=== PATIENT | male | born 1945 | race Caucasian/White ===

== ENCOUNTER 2019-09-25 08:33 | Outpatient (CLI) | payer MEDICARE, OTHER, SELFPAY ==
[2019-09-25 09:45] LABS: Cholesterol 112 mg/dL (0-200); HDL Direct 45 mg/dL; Triglycerides 116 mg/dL (<150)
[2019-09-25 09:56] LABS: LDL Cholesterol Direct 53 mg/dL
== END 2019-09-25 08:34 | disposition home or self-care (01) ==
PROVIDERS: Visit Provider Internal Medicine Cardiovascular Disease
DX: E11.69 Type 2 diabetes mellitus with other specified complication (principal); E78.5 Hyperlipidemia, unspecified; Z79.899 Other long term (current) drug therapy
CPT/HCPCS: 36415; 80061

== ENCOUNTER 2020-02-01 07:04 | Outpatient (CLI) | payer MEDICARE, OTHER, SELFPAY ==
[2020-02-01 07:38] LABS: Cholesterol 121 mg/dL (0-200); HDL Direct 46 mg/dL; Triglycerides 131 mg/dL (<150)
[2020-02-01 07:48] LABS: LDL Cholesterol Direct 53 mg/dL
== END 2020-02-01 07:05 | disposition home or self-care (01) ==
PROVIDERS: Visit Provider Internal Medicine Cardiovascular Disease
DX: E78.5 Hyperlipidemia, unspecified (principal); Z79.899 Other long term (current) drug therapy; I25.118 Atherosclerotic heart disease of native coronary artery with other forms of angina pectoris
CPT/HCPCS: 36415; 80061

== ENCOUNTER → 2021-12-16 09:01 | Outpatient (CLI) | payer MEDICARE, OTHER, SELFPAY ==
--- NOTE | ~2021-12-16 | MR_ITS ---
EXAMINATION: MR lumbar spine wo con DATE: 12/16/2021 10:07 INDICATION: Low back pain and left leg pain TECHNIQUE: Magnetic resonance imaging (MRI) of the lumbar spine was performed without intravenous con trast. Sequences included sagittal T2-weighted FSE, sagittal T2-weighted FS FSE, sagittal T1-weighted FSE, and axial T2-weighted FSE. COMPARISON: None FINDINGS: 11 degree upper lumbar dextroscoliosis. 2 mm retrolisthesis L2 on L3 and L3 on L4. 4 mm retrolisthesi s L5 on S1. Chronic anterior wedging at T12 with 20% anterior vertebral body height loss. Additional minimal chronic anterior wedging at L1. There are Schmorl's nodes along several endplates in the lumb ar and lower thoracic spine. Multiple T1 hyperintense hemangiomas including at T12, L1 and L4 and at the left S1 sacral ala. There are fibrofatty and fibrovascular degenerative endplate changes at sever al levels in the lumbar spine most prominent at the left side of L3-L4. Marrow signal is otherwise un remarkable. Severe left-sided disc height loss at L3-L4, moderate to severe disc height loss at L4-L5 and L5-S1. Mild disc height loss at T11-T12 through L2-L3. The conus medullaris terminates at L1. Th ere is normal signal in the caudal spinal cord. Paravertebral soft tissues are unremarkable. The foll owing disc levels are specifically discussed: T12-L1: The disc does not extend beyond the endplate margin. There is mild bilateral facet joint oste oarthritis. There is mild left neural foraminal stenosis. There is no central canal stenosis. L1-L2: Disc is bulging. There is mild bilateral facet joint osteoarthritis. There is mild right and m ild to moderate left neural foraminal stenosis. There is mild central canal stenosis. L2-L3: Disc is bulging. There is mild bilateral facet joint osteoarthritis. There is mild bilateral n eural foraminal stenosis. There is mild to moderate central canal stenosis. L3-L4: Disc is bulging with annular fissure. There is moderate bilateral facet joint osteoarthritis. There is moderate right and moderate to severe left neural foraminal stenosis. There is moderate cent ral canal stenosis. L4-L5: Annular fissure and central disc extrusion which extends from foraminal zone to foraminal zone . There is moderate bilateral facet joint osteoarthritis. There is moderate left and moderate to smita re right neural foraminal stenosis. There is mild to moderate central canal stenosis. Is also narrowi ng of the left and right lateral recesses, mild on the left and severe on the right. L5-S1: Annular fissure and small central disc extrusion extending from foraminal zone to foraminal zo ne. There is mild left and moderate to severe right facet joint osteoarthritis. There is altered left and moderate to severe right neural foraminal stenosis. There is mild central canal stenosis. IMPRESSION: 1. Mild lumbar dextroscoliosis with severe spondylosis. Reviewed, dictated and finalized at location A.
== END ==
PROVIDERS: Visit Provider Nurse Practitioner Family
DX: M47.896 Other spondylosis, lumbar region (principal)
CPT/HCPCS: 72148

== ENCOUNTER 2022-04-04 14:10 | Outpatient (CLI) | payer MEDICARE, OTHER, SELFPAY ==
[2022-04-04 14:37] LABS: Cholesterol 135 mg/dL (0-200); HDL Direct 57 mg/dL; Triglycerides 122 mg/dL (<150)
[2022-04-04 14:48] LABS: LDL Cholesterol Direct 49 mg/dL
== END 2022-04-04 14:11 | disposition home or self-care (01) ==
PROVIDERS: Visit Provider Internal Medicine Cardiovascular Disease
DX: E11.69 Type 2 diabetes mellitus with other specified complication (principal); E78.5 Hyperlipidemia, unspecified
CPT/HCPCS: 36415; 80061

== ENCOUNTER 2022-04-18 07:38 | Outpatient (CLI) | payer MEDICARE, OTHER, SELFPAY ==
[2022-04-18 08:42] LABS: Hemoglobin A1C 6.1 % (<5.7)
[2022-04-18 08:43] LABS: Cholesterol 130 mg/dL (0-200); HDL Direct 44 mg/dL; Triglycerides 105 mg/dL (<150)
[2022-04-18 08:54] LABS: LDL Cholesterol Direct 51 mg/dL
[2022-04-18 09:00] LABS: Creatinine Urine 15.3 mg/dL
[2022-04-18 09:08] LABS: Microalbumin Urine Random < 6.0 mg/L (0-16.7)
== END 2022-04-18 07:39 | disposition home or self-care (01) ==
PROVIDERS: Visit Provider Emergency Medicine
DX: R53.83 Other fatigue (principal); E11.9 Type 2 diabetes mellitus without complications; I25.2 Old myocardial infarction
CPT/HCPCS: 36415; 80061; 82043; 83036

== ENCOUNTER 2022-07-06 05:57 | Emergency (ER) | payer MEDICARE, OTHER, SELFPAY ==
[2022-07-06] VITALS (12 sets, daily range): BP systolic 96–130; BP diastolic 59–75; PULSE 73–81; RESP 17–21; TEMP 36.9; O2SAT 93–97
--- NOTE | ~2022-07-06 | XR_ITS ---
XR chest 1V portable DATE: 07/06/2022 06:30 INDICATION: Cough TECHNIQUE: Portable upright AP chest on 07/06/2022 at 0628 hours COMPARISON: 01/29/2018 PA and lateral chest FINDINGS: Bilateral hyperinflation and relative flattening the diaphragm, suggesting obstructive airw ays disease. There may be minimal atelectasis at the lung bases. No pulmonary infiltrate or consolida tion is evident. No hilar or mediastinal enlargement. Heart size appears within normal limits. Aortic calcification and tortuosity. No pleural effusion or pulmonary vascular congestion or pneumothorax is detected. Diffuse osteopenia. IMPRESSION: Bilateral hyperinflation suggesting COPD Aortic atherosclerosis Osteopenia Reviewed, dictated and finalized at location A. ICIPANT ADMINISTRATOR
--- NOTE | 2022-07-06 07:17 | ECG_ITS ---
Measurements Intervals [place] Rate: 77 P: 29 MO: 177 QRS: -66 QRSD: 138 T: 65 QT: 376 QTc: 426 Interpretive Statements SINUS RHYTHM ATRIAL AND VENTRICULAR PREMATURE COMPLEXES RIGHT BUNDLE BRANCH BLOCK LEFT ANTERIOR FASCICULAR BLOCK ANTEROSEPTAL INFARCT, AGE INDETERMINATE BASELINE ARTIFACT- I, III, AVL ABNORMAL ECG NO PREVIOUS ECG AVAILABLE FOR COMPARISON Electronically Signed On 07-06-2022 9:49:01 PHOSPHORIC ACID OPERATOR by Uche Vidal D.O.
[2022-07-06 07:19] LABS: Influenza A QL RT-PCR Negative (Negative); Influenza B QL RT-PCR Negative (Negative); SARS-CoV-2 RNA PCR Negative
[2022-07-06 07:34] LABS: Carboxyhemoglobin 2.2 % THb (0-2.0); Fractional Inspired Oxygen 21 %; HCO3 ABG 27.3 mEq/l (22.0-26.0); Methemoglobin ABG 0.2 %THb (0-1.5); Modified Allen's Test Pass; Oxygen Saturation ABG 94.7 % (95.0-100.0); Oxyhemoglobin 92.2 % THb (90.0-100.0); PCO2 ABG 40.7 mmHg (35.0-45.0); PO2 FiO2 Ratio Arterial Blood 3.33 %; Reduced Hemoglobin 5.4 %THb (0-5.0); Site Drawn LEFT RADIAL; Total Hemoglobin 16.2 g/dL (12.0-18.0); pH ABG 7.445 (7.350-7.450)
[2022-07-06 07:52] LABS: Basophils Percent Auto 0.4 % (0.2-1.2); Eosinophils Absolute Auto 0.1 K/mm3 (0-0.3); Eosinophils Percent Auto 0.5 % (0-4.4); Hematocrit 45.1 % (42.0-52.0); Hemoglobin 15.6 g/dL (14.0-18.0); Immature Granulocyte Absolute 0.16 K/mm3 (0.00-0.031); Immature Granulocyte Percent A 1.4 % (0-0.5); Lymphocytes Absolute Auto 1.23 K/mm3 (0.9-3.2); Lymphocytes Percent Auto 10.9 % (18.3-44.2); Mean Corpuscular HGB Conc 34.6 g/dl (32-36); Mean Corpuscular Hemoglobin 30.8 pg (26-34); Mean Corpuscular Volume 89.1 fl (80-100); Mean Platelet Volume 9.9 fl (7.4-10.4); Monocytes Absolute Auto 0.6 K/mm3 (0.1-0.6); Monocytes Percent Auto 5.7 % (2.6-8.5); Neutrophils Absolute Auto 9.1 K/mm3 (1.3-6.7); Neutrophils Percent Auto 81.1 % (45.5-73.1); Platelet Count Result 357 k/mm3 (150-375); Red Blood Count 5.06 M/mm3 (4.6-6.20); Red Cell Distribution Width 13.2 % (11.5-14.5); White Blood Count 11.3 K/mm3 (4.5-10.0)
--- NOTE | 2022-07-06 07:59 | ED.SOB ---
HPI - SOB/Dyspnea General Chief Complaint: Shortness of Breath/Dyspnea Stated Complaint: SOB Time Seen by Provider: 07/06/22 07:01 Source: patient (), family, RN notes reviewed and old records reviewed Mode of arrival: ambulatory Limitations: other (poor historian) History of Present Illness HPI Narrative: This is a 77 year old male with history of COPD, CAD, hypertension who presents for evaluation of shortness of breath. His is at bedside to assist with history. She states patient has been dealing with cough for 1 week. She reports 1 week ago they both went to an urgent care for evaluation of cough, and they were prescribed antibiotic and antiinflammatory. His cough has improved and it is nonproductive. His states around midnight he started complaining of shortness of breath. He also reports diaphoresis and nausea. He denies chest pain. He is unsure if his sob is worse with exertion. He denies fever, chills, vomiting, diarrhea, chest pain or abdominal pain. Patient states his process technician told him if he feels off to come to ER. Related Data Home Medications Medication Instructions Recorded Confirmed alirocumab 75 mg/mL subcutaneous 75 mg subcut ONCE 11/29/21 05/16/22 pen injector (Praluent Pen) aspirin 81 mg tablet,delayed 81 mg PO DAILY 11/29/21 05/16/22 release budesonide-formoterol HFA 160 2 puff inhalation Q12H 11/29/21 05/16/22 mcg-4.5 mcg/actuation aerosol inhaler (Symbicort) furosemide 40 mg tablet 40 mg PO BID 11/29/21 05/16/22 glucosamine [id number] 1 tablet PO DAILY 11/29/21 05/16/22 elise 1,500 mg-400 unit-100 mg tablet (Osteo Bi-Flex (5-Loxin)) isosorbide mononitrate 60 mg 60 mg PO DAILY 11/29/21 05/16/22 tablet,extended release 24 hr latanoprost 0.005 % eye drops 1 drp EACH EYE QPM 11/29/21 05/16/22 metformin 500 mg tablet 500 mg PO BID 11/29/21 05/16/22 metoprolol succinate 25 mg 12.5 mg PO DAILY 11/29/21 05/16/22 tablet,extended release 24 hr nitroglycerin 0.4 mg sublingual 0.4 mg sublingual Q5M PRN 11/29/21 05/16/22 tablet pantoprazole 40 mg tablet,delayed 40 mg PO QAM 11/29/21 05/16/22 release potassium chloride 20 mEq 20 meq PO DAILY 11/29/21 05/16/22 tablet,extended release sacubitril 24 mg-valsartan 26 mg 1 tablet PO BID 11/29/21 05/16/22 tablet (Entresto) spironolactone 25 mg tablet 25 mg PO DAILY 11/29/21 05/16/22 ticagrelor 60 mg tablet (Brilinta) 60 mg PO Q12H 11/29/21 05/16/22 Allergies Allergy/AdvReac Type Severity Reaction Status Date / Time carvedilol Allergy Unknown unknown Verified 07/06/22 05:59 lisinopril Allergy Unknown Swelling Verified 07/06/22 05:59 varenicline Allergy Unknown unknown Verified 07/06/22 05:59 Review of Systems Review of Systems: All systems reviewed & are unremarkable except as noted in HPI and below Constitutional: Constitutional: Denies chills, Denies fatigue and Denies fever(s) Eyes: Eyes: Denies change in vision and Denies photophobia ENT: Denies nasal congestion Cardiovascular: Cardiovascular: Denies chest pain and Denies radiating jaw, neck or arm pain Respiratory: Respiratory: Reports cough, Reports dyspnea and Denies wheezing Gastrointestinal: Gastrointestinal: Denies abdominal pain, Denies diarrhea, Reports nausea and Denies vomiting Genitourinary: Genitourinary: Denies hematuria Musculoskeletal: Musculoskeletal: Denies back pain Neurologic: Denies dizziness and Denies headache(s) [facility] Past Medical History Medical History Lumbosacral spondylosis with radiculopathy Myocardial infarction Rotator cuff tear arthropathy of right shoulder Surgical History Surgical History H/O heart artery stent Family History Family History Other Acute myocardial infarction Breast cancer Social History Social History (Revi
[2022-07-06 08:01] LABS: Partial Thromboplastin Time 29.7 SECONDS (22.3-36.8); Prothrombin Time 12.5 Seconds (11.1-14.7)
[2022-07-06 08:08] LABS: Alanine Aminotransferase 17 U/L (6-50); Albumin Level 4.3 g/dL (3.5-5.1); Alkaline Phosphatase 98 U/L (38-126); Anion Gap 13 mmol/L (8-16); Aspartate Amino Transferase 23 U/L (17-59); Bilirubin,Total 0.8 mg/dL (0.2-1.3); Blood Urea Nitrogen 23 mg/dL (9-20); Calcium 9.1 mg/dL (8.4-10.2); Carbon Dioxide 25 mmol/L (22-30); Chloride 99 mmol/L (98-107); Estimated CRCL calculation 67 ml/min; Estimated Glomerular Filt Rate > 60; Glucose 144 mg/dL (65-110); Potassium 3.8 mmol/L (3.4-5.0); Sodium 137 mmol/L (137-145)
[2022-07-06 08:21] LABS: NT Pro B Type Natriuretic Pept 286 pg/mL (5-100); Troponin I < 0.012 ng/mL (0.000-0.034)
== END 2022-07-06 09:41 | disposition home or self-care (01) ==
PROVIDERS: Emergency Medicine; Emergency Provider General Practice; PCP Emergency Medicine
DX: R06.00 Dyspnea, unspecified (principal); Z20.822 Contact with and (suspected) exposure to COVID-19; J44.9 Chronic obstructive pulmonary disease, unspecified; I25.10 Atherosclerotic heart disease of native coronary artery without angina pectoris; I25.2 Old myocardial infarction; Z79.82 Long term (current) use of aspirin; Z79.84 Long term (current) use of oral hypoglycemic drugs; Z79.02 Long term (current) use of antithrombotics/antiplatelets; Z87.891 Personal history of nicotine dependence; I49.1 Atrial premature depolarization; I49.3 Ventricular premature depolarization; I45.2 Bifascicular block
CPT/HCPCS: 36415; 36600; 71045; 80053; 82375; 82805; 83050; 83880; 84484; 85025; 85610; 85730; 87636; 93005; 99284

== ENCOUNTER 2022-07-11 12:06 | Outpatient (CLI) | payer MEDICARE, OTHER, SELFPAY ==
[2022-07-11 12:51] LABS: Alanine Aminotransferase 18 U/L (6-50); Albumin Level 4.3 g/dL (3.5-5.1); Alkaline Phosphatase 76 U/L (38-126); Anion Gap 10 mmol/L (8-16); Aspartate Amino Transferase 23 U/L (17-59); Bilirubin,Total 0.5 mg/dL (0.2-1.3); Blood Urea Nitrogen 20 mg/dL (9-20); Carbon Dioxide 27 mmol/L (22-30); Chloride 99 mmol/L (98-107); Estimated Glomerular Filt Rate > 60; Glucose 126 mg/dL (65-110); Potassium 4.5 mmol/L (3.4-5.0); Sodium 136 mmol/L (137-145)
== END 2022-07-11 12:07 | disposition home or self-care (01) ==
PROVIDERS: PCP Emergency Medicine; Visit Provider Emergency Medicine
DX: R53.83 Other fatigue (principal)
CPT/HCPCS: 36415; 80053

== ENCOUNTER 2022-08-31 07:46 | Outpatient (CLI) | payer MEDICARE, OTHER, SELFPAY ==
[2022-08-31 09:10] LABS: Alanine Aminotransferase 16 U/L (6-50); Alkaline Phosphatase 85 U/L (38-126); Anion Gap 6 mmol/L (8-16); Aspartate Amino Transferase 21 U/L (17-59); Bilirubin,Total 0.2 mg/dL (0.2-1.3); Blood Urea Nitrogen 14 mg/dL (9-20); Calcium 8.7 mg/dL (8.4-10.2); Carbon Dioxide 30 mmol/L (22-30); Chloride 100 mmol/L (98-107); Cholesterol 112 mg/dL (0-200); Estimated Glomerular Filt Rate > 60; Glucose 108 mg/dL (65-110); HDL Direct 52 mg/dL; Potassium 3.5 mmol/L (3.4-5.0); Sodium 136 mmol/L (137-145); Triglycerides 73 mg/dL (<150)
[2022-08-31 09:21] LABS: LDL Cholesterol Direct 42 mg/dL
[2022-08-31 10:40] LABS: Hemoglobin A1C 5.5 % (<5.7)
== END 2022-08-31 07:47 | disposition home or self-care (01) ==
PROVIDERS: PCP Emergency Medicine; Visit Provider Emergency Medicine
DX: E11.9 Type 2 diabetes mellitus without complications (principal); I21.9 Acute myocardial infarction, unspecified
CPT/HCPCS: 36415; 80053; 80061; 83036

== ENCOUNTER 2023-01-09 08:03 | Outpatient (CLI) | payer MEDICARE, OTHER, SELFPAY ==
[2023-01-09 08:40] LABS: Alanine Aminotransferase 16 U/L (6-50); Albumin Level 4.5 g/dL (3.5-5.1); Alkaline Phosphatase 121 U/L (38-126); Anion Gap 9 mmol/L (8-16); Aspartate Amino Transferase 25 U/L (17-59); Bilirubin,Total 0.6 mg/dL (0.2-1.3); Blood Urea Nitrogen 13 mg/dL (9-20); Calcium 8.9 mg/dL (8.4-10.2); Carbon Dioxide 27 mmol/L (22-30); Chloride 102 mmol/L (98-107); Cholesterol 114 mg/dL (0-200); Estimated Glomerular Filt Rate > 60; Glucose 108 mg/dL (65-110); HDL Direct 44 mg/dL; Potassium 3.6 mmol/L (3.4-5.0); Sodium 138 mmol/L (137-145); Triglycerides 93 mg/dL (<150)
[2023-01-09 08:50] LABS: LDL Cholesterol Direct 52 mg/dL
[2023-01-09 10:47] LABS: Hemoglobin A1C 6.2 % (<5.7)
== END 2023-01-09 08:04 | disposition home or self-care (01) ==
LOC: ANHLAB 08:05
PROVIDERS: PCP Emergency Medicine; Visit Provider Emergency Medicine
DX: E11.9 Type 2 diabetes mellitus without complications (principal)
CPT/HCPCS: 36415; 80053; 80061; 83036

== ENCOUNTER 2023-07-09 08:16 | Outpatient (CLI) | payer MEDICARE, OTHER, SELFPAY ==
[2023-07-09 09:06] LABS: Alanine Aminotransferase 15 U/L (6-50); Albumin Level 4.2 g/dL (3.5-5.1); Alkaline Phosphatase 112 U/L (38-126); Anion Gap 9 mmol/L (8-16); Aspartate Amino Transferase 24 U/L (17-59); Bilirubin,Total 0.4 mg/dL (0.2-1.3); Blood Urea Nitrogen 14 mg/dL (9-20); Calcium 8.8 mg/dL (8.4-10.2); Carbon Dioxide 28 mmol/L (22-30); Chloride 102 mmol/L (98-107); Estimated Glomerular Filt Rate > 60; Glucose 113 mg/dL (65-110); Potassium 3.6 mmol/L (3.4-5.0); Sodium 139 mmol/L (137-145)
[2023-07-12 20:03] LABS: Vitamin D 1,25 (OH)2 Total 65 pg/mL (18-72); Vitamin D2 1,25 (OH)2 <8 pg/mL; Vitamin D3 1,25 (OH)2 65 pg/mL
== END 2023-07-09 08:17 | disposition home or self-care (01) ==
LOC: ANHLAB 08:19
PROVIDERS: PCP Emergency Medicine; Visit Provider Emergency Medicine
DX: E78.5 Hyperlipidemia, unspecified (principal); E55.9 Vitamin D deficiency, unspecified
CPT/HCPCS: 36415; 80053; 82652

== ENCOUNTER 2023-07-12 08:19 | Outpatient (CLI) | payer MEDICARE, OTHER, SELFPAY ==
[2023-07-12 09:31] LABS: Cholesterol 120 mg/dL (0-200); HDL Direct 45 mg/dL; Triglycerides 82 mg/dL (<150)
[2023-07-12 09:42] LABS: LDL Cholesterol Direct 56 mg/dL
== END 2023-07-12 08:20 | disposition home or self-care (01) ==
LOC: ANHLAB 08:26
PROVIDERS: PCP Emergency Medicine; Visit Provider Internal Medicine Cardiovascular Disease
DX: I25.118 Atherosclerotic heart disease of native coronary artery with other forms of angina pectoris (principal)
CPT/HCPCS: 36415; 80061

== ENCOUNTER 2024-01-07 07:39 | Outpatient (CLI) | payer MEDICARE, OTHER, SELFPAY ==
[2024-01-07 08:31] LABS: Alanine Aminotransferase 13 U/L (6-50); Albumin Level 4.5 g/dL (3.5-5.1); Alkaline Phosphatase 99 U/L (38-126); Anion Gap 8 mmol/L (4-12); Aspartate Amino Transferase 23 U/L (17-59); Bilirubin,Total 0.6 mg/dL (0.2-1.3); Blood Urea Nitrogen 11 mg/dL (9-20); Calcium 9.2 mg/dL (8.4-10.2); Carbon Dioxide 26 mmol/L (22-30); Chloride 105 mmol/L (98-107); Cholesterol 111 mg/dL (0-200); Estimated Glomerular Filt Rate > 60; Glucose 132 mg/dL (65-110); HDL Direct 46 mg/dL; Potassium 3.9 mmol/L (3.4-5.0); Sodium 139 mmol/L (137-145); Triglycerides 81 mg/dL (<150)
[2024-01-07 08:43] LABS: LDL Cholesterol Direct 55 mg/dL
[2024-01-07 08:48] LABS: Vitamin D 25 Hydroxy 32.2 ng/mL
[2024-01-07 09:06] LABS: Hemoglobin A1C 6.5 % (<5.7)
== END 2024-01-07 07:40 | disposition home or self-care (01) ==
PROVIDERS: PCP Emergency Medicine; Visit Provider Emergency Medicine
DX: E55.9 Vitamin D deficiency, unspecified (principal); I21.9 Acute myocardial infarction, unspecified; E11.9 Type 2 diabetes mellitus without complications
CPT/HCPCS: 36415; 80053; 80061; 82306; 83036

== ENCOUNTER 2024-05-25 07:09 | Emergency (ER) | payer MEDICARE, OTHER, SELFPAY ==
[2024-05-25] VITALS (11 sets, daily range): BP systolic 108–112; BP diastolic 58–71; PULSE 81–99; RESP 16–21; TEMP 36.4–36.7; O2SAT 93–98
--- NOTE | ~2024-05-25 | XR_ITS ---
XR chest 1V portable Ordering provider: Bart Ge MD History: 79 years Male with . edema . Comparison: July 06, 2022 FINDINGS: MEDIASTINUM: The cardiac silhouette is not enlarged. LUNGS: No infiltrates, effusions or pneumothorax. OTHER: No free air under the diaphragm. IMPRESSION: No acute cardiopulmonary pathology. Reviewed, dictated and finalized at location A.
--- NOTE | ~2024-05-25 | US_ITS ---
BILATERAL LOWER EXTREMITY VENOUS ULTRASOUND Ordering provider: Bart Ge MD History: . edema . Comparison: None. FINDINGS: RIGHT LOWER EXTREMITY VEINS: --COMMON FEMORAL: Patent and free of thrombus. Normal compressibility, phasic flow and augmentation. --PROXIMAL SUPERFICIAL FEMORAL: Patent and free of thrombus. Normal compressibility, phasic flow and augmentation. --DISTAL SUPERFICIAL FEMORAL: Patent and free of thrombus. Normal compressibility, phasic flow and au gmentation. --POPLITEAL: Patent and free of thrombus. Normal compressibility, phasic flow and augmentation. --POSTERIOR TIBIAL: Patent and free of thrombus. Normal compressibility, phasic flow and augmentation . Rey's cyst is seen. LEFT LOWER EXTREMITY VEINS: --COMMON FEMORAL: Patent and free of thrombus. Normal compressibility, phasic flow and augmentation. --PROXIMAL SUPERFICIAL FEMORAL: Patent and free of thrombus. Normal compressibility, phasic flow and augmentation. --DISTAL SUPERFICIAL FEMORAL: Patent and free of thrombus. Normal compressibility, phasic flow and au gmentation. --POPLITEAL: Patent and free of thrombus. Normal compressibility, phasic flow and augmentation. --POSTERIOR TIBIAL: Patent and free of thrombus. Normal compressibility, phasic flow and augmentation . Rey's cyst is seen. IMPRESSION: Negative bilateral lower extremity venous US. No deep vein thrombosis. Bilateral Rey's cyst. Reviewed, dictated and finalized at location A.
[2024-05-25 07:59] LABS: Eosinophils Percent Auto 0.4 % (0-4.4); Hematocrit 35.7 % (42.0-52.0); Hemoglobin 11.2 g/dL (14.0-18.0); Immature Granulocyte Absolute 0.03 K/mm3 (0.00-0.031); Immature Granulocyte Percent A 0.6 % (0-0.5); Lymphocytes Absolute Auto 0.58 K/mm3 (0.9-3.2); Mean Corpuscular HGB Conc 31.4 g/dl (32-36); Mean Corpuscular Hemoglobin 27.3 pg (26-34); Mean Corpuscular Volume 86.9 fl (80-100); Mean Platelet Volume 8.9 fl (7.4-10.4); Monocytes Absolute Auto 0.4 K/mm3 (0.1-0.6); Monocytes Percent Auto 6.8 % (2.6-8.5); Neutrophils Absolute Auto 4.3 K/mm3 (1.3-6.7); Neutrophils Percent Auto 81.2 % (45.5-73.1); Platelet Count Result 401 k/mm3 (150-375); Red Blood Count 4.11 M/mm3 (4.6-6.20); Red Cell Distribution Width 15.6 % (11.5-14.5); White Blood Count 5.3 K/mm3 (4.5-10.0)
[2024-05-25 08:14] LABS: Alanine Aminotransferase 12 U/L (6-50); Albumin Level 3.7 g/dL (3.5-5.1); Alkaline Phosphatase 80 U/L (38-126); Anion Gap 9 mmol/L (4-12); Aspartate Amino Transferase 26 U/L (17-59); Bilirubin,Total 0.8 mg/dL (0.2-1.3); Blood Urea Nitrogen 14 mg/dL (9-20); Calcium 8.9 mg/dL (8.4-10.2); Carbon Dioxide 28 mmol/L (22-30); Chloride 98 mmol/L (98-107); Estimated CRCL calculation 69 ml/min; Estimated Glomerular Filt Rate > 60; Glucose 116 mg/dL (65-110); Potassium 3.8 mmol/L (3.4-5.0); Sodium 135 mmol/L (137-145)
[2024-05-25 08:20] LABS: NT Pro B Type Natriuretic Pept 1540 pg/mL (19.9-100); Prothrombin Time 13.4 Seconds (11.1-14.7)
[2024-05-25 08:21] LABS: Partial Thromboplastin Time 36.8 Seconds (22.3-36.8)
--- NOTE | 2024-05-25 08:32 | ED.GENADULT ---
HPI - General Adult General Chief complaint: Extremity Problem,Nontraumatic Stated complaint: PAINFUL,SWOLLEN LEGS Time Seen by Provider: 05/25/24 07:18 History of Present Illness HPI narrative: patient is an 79-year-old male who presents ER with swollen legs. Ongoing over last week. Recently increased his Lasix from 40 mg b.i.d. to 40 mg t.i.d.. He sees Dr. Diamond. No chest pain or shortness of breath. He did start a new vitamin for his joints. No dyspnea or orthopnea. Related Data Home Medications Medication Instructions Recorded Confirmed aspirin 81 mg tablet,delayed 81 mg PO DAILY 11/29/21 05/19/24 release latanoprost 0.005 % eye drops 1 drp EACH EYE QPM 11/29/21 05/19/24 metoprolol succinate 25 mg 12.5 mg PO DAILY 11/29/21 05/19/24 tablet,extended release 24 hr nitroglycerin 0.4 mg sublingual 0.4 mg sublingual Q5M PRN 11/29/21 05/19/24 tablet pantoprazole 40 mg tablet,delayed 40 mg PO QAM 11/29/21 05/19/24 release potassium chloride 20 mEq 20 meq PO DAILY 11/29/21 05/19/24 tablet,extended release ticagrelor 60 mg tablet (Brilinta) 60 mg PO Q12H 11/29/21 05/19/24 sacubitril 24 mg-valsartan 26 mg 0.5 tablet PO BID 09/04/22 05/19/24 tablet (Entresto) glucosamine [id number] 2 tablet PO DAILY 05/19/24 05/19/24 elise 1,500 mg-400 unit-100 mg tablet (Osteo Bi-Flex (5-Loxin)) Allergies Allergy/AdvReac Type Severity Reaction Status Date / Time carvedilol Allergy Unknown unknown Verified 05/25/24 07:11 lisinopril Allergy Unknown Swelling Verified 05/25/24 07:11 varenicline Allergy Unknown unknown Verified 05/25/24 07:11 [id number] Reductase AdvReac Unknown Verified 05/25/24 07:11 Inhibitor Review of Systems Review of Systems: All systems reviewed & are unremarkable except as noted in HPI and below Constitutional: Constitutional: Reports no additional constitutional complaints ENT: Reports system reviewed and no additional complaints, except as documented Cardiovascular: Cardiovascular: Reports no additional cardiovascular complaints Respiratory: Respiratory: Reports no additional respiratory complaints Gastrointestinal: Gastrointestinal: Reports no additional gastrointestinal complaints Musculoskeletal: Musculoskeletal: Denies arthralgias, Denies joint swelling and Denies muscle cramps Comments: Leg swelling PMFSH Past Medical History Medical History Chronic right shoulder pain Impingement syndrome of right shoulder Lumbosacral spondylosis with radiculopathy Myocardial infarction 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 Tendinitis of right rotator cuff Surgical History Surgical History H/O heart artery stent Family History Family History Other Acute myocardial infarction Breast cancer Social History Social History Smoking packs per day: 0.5 Smoking cigarettes per day: 10.0 Years smoked: 60 Smoking pack-years: 30.00 Smoking status: Current every day smoker Second hand tobacco smoke exposure: No Smoking end date: 08/12/14 Alcohol intake: never Substance use: never Substance use type: does not use Current Housing: Decline to Answer Concerned About Future Housing: Decline to Answer Difficulty Paying Gas/Electric Bills: Decline to Answer Difficulty Paying for Meds: Decline to Answer Currently Unemployed: Decline to Answer Education: Decline to Answer Difficulty w/ Childcare or Family Care: Decline to Answer Occupation/Education: retired Gender identity (if verbalized by the patient): Male Spiritual care concerns: No Agree to blood products: Yes Exam Narrative: GENERAL: Well-appearing, well-nourished, and in no acute distress. DEMETRIA
== END 2024-05-25 09:52 | disposition home or self-care (01) ==
PROVIDERS: Emergency Provider Emergency Medicine; PCP Emergency Medicine
DX: R60.0 Localized edema (principal); I25.2 Old myocardial infarction; M19.011 Primary osteoarthritis, right shoulder; Z95.5 Presence of coronary angioplasty implant and graft; Z87.891 Personal history of nicotine dependence; Z79.82 Long term (current) use of aspirin; Z79.899 Other long term (current) drug therapy; Z79.02 Long term (current) use of antithrombotics/antiplatelets; Z79.84 Long term (current) use of oral hypoglycemic drugs; M71.22 Synovial cyst of popliteal space [Baker], left knee; M71.21 Synovial cyst of popliteal space [Baker], right knee
CPT/HCPCS: 36415; 71045; 80053; 83880; 85025; 85610; 85730; 93970; 99284

== ENCOUNTER 2024-06-09 10:33 | Inpatient (IN) | payer MEDICARE, OTHER, SELFPAY ==
[2024-06-09] VITALS (12 sets, daily range): BP systolic 102–114; BP diastolic 55–76; PULSE 74–99; RESP 16–26; TEMP 36.8; O2SAT 96–99; BMI 27.3
[2024-06-09] MEDS: SODIUM CHLORIDE 0.9% IV 1,000 ML 150 ML IV CONT (12:01)
[2024-06-09 12:11] LABS: Basophils Percent Auto 0.2 % (0.2-1.2); Eosinophils Percent Auto 0.4 % (0-4.4); Hematocrit 35.4 % (42.0-52.0); Hemoglobin 10.9 g/dL (14.0-18.0); Immature Granulocyte Absolute 0.05 K/mm3 (0.00-0.031); Immature Granulocyte Percent A 1.1 % (0-0.5); Lymphocytes Absolute Auto 0.83 K/mm3 (0.9-3.2); Lymphocytes Percent Auto 17.6 % (18.3-44.2); Mean Corpuscular HGB Conc 30.8 g/dl (32-36); Mean Corpuscular Hemoglobin 26.7 pg (26-34); Mean Corpuscular Volume 86.8 fl (80-100); Mean Platelet Volume 9.1 fl (7.4-10.4); Monocytes Absolute Auto 0.3 K/mm3 (0.1-0.6); Monocytes Percent Auto 6.6 % (2.6-8.5); Neutrophils Absolute Auto 3.5 K/mm3 (1.3-6.7); Neutrophils Percent Auto 74.1 % (45.5-73.1); Platelet Count Result 389 k/mm3 (150-375); Red Blood Count 4.08 M/mm3 (4.6-6.20); Red Cell Distribution Width 16.5 % (11.5-14.5); White Blood Count 4.7 K/mm3 (4.5-10.0)
[2024-06-09 12:22] LABS: Alanine Aminotransferase 11 U/L (6-50); Albumin Level 3.7 g/dL (3.5-5.1); Alkaline Phosphatase 75 U/L (38-126); Anion Gap 8 mmol/L (4-12); Aspartate Amino Transferase 18 U/L (17-59); Bilirubin,Total 0.3 mg/dL (0.2-1.3); Blood Urea Nitrogen 13 mg/dL (9-20); Calcium 8.9 mg/dL (8.4-10.2); Carbon Dioxide 28 mmol/L (22-30); Chloride 101 mmol/L (98-107); Estimated CRCL calculation 74 ml/min; Estimated Glomerular Filt Rate > 60; Glucose 122 mg/dL (65-110); Potassium 3.8 mmol/L (3.4-5.0); Prothrombin Time 13.3 Seconds (11.1-14.7); Sodium 137 mmol/L (137-145)
[2024-06-09 12:23] LABS: Partial Thromboplastin Time 44.3 Seconds (22.3-36.8)
[2024-06-09 12:59] LABS: Appearance Urine Turbid (Clear); Bilirubin Urine Negative (Negative); Blood Urine Negative (Negative); Color Urine Yellow (Yellow); Glucose Urine UA Negative (Negative); Ketones Urine Trace mg/dL (Negative); Leukocyte Esterase Ur Negative LEU/UL (Negative); Nitrate Urine Negative (Negative); Protein Urine Trace mg/dL (Negative); Specific Grav Ur 1.022 (1.001-1.035)
[2024-06-09 13:00] LABS: Add Urine Microscopic? YES; Bacteria Urine None Seen /hpf; Calcium Oxalate Crystals Urine Present /hpf; Hyaline Casts Urine Present /lpf; Mucus Urine Present /lpf; Squamous Epithelial Cell Urine None Seen /hpf (Few); WBC Urine 0-5 /hpf (0-3)
[2024-06-09 13:03] LABS: Amorphous Sediment Urine Heavy
--- NOTE | 2024-06-09 14:09 | ED.ABDPAIN ---
HPI - Abdominal Pain General Chief Complaint: Abdominal Pain Stated Complaint: nausea, abd pain Time Seen by Provider: 06/09/24 11:37 Source: patient and family Mode of arrival: ambulatory Limitations: no limitations History of Present Illness HPI narrative: 79-year-old with a history of CAD, GERD, hypertension, peptic ulcer disease brought in by daughter with a complaint of 4 day history of unable to eat or drink complaining of upper abdominal pain as well. She states that he had a bleeding ulcer 3 years ago which was clipped and [facility]. This morning he was unable to drink water. He denies any nausea or vomiting also complains of sore throat . MD elicited complaint: abdominal pain Pertinent past history: gastritis, gastrointestinal bleeding and myocardial infarction Onset (ago): day(s) (4) Pain Consistency: constant Location: epigastric Severity: mild Radiation: none Migration to: no migration Relieving factors: eating Associated symptoms: denies other symptoms Related Data Home Medications Medication Instructions Recorded Confirmed aspirin 81 mg tablet,delayed 81 mg PO DAILY 11/29/21 05/19/24 release latanoprost 0.005 % eye drops 1 drp EACH EYE QPM 11/29/21 05/19/24 metoprolol succinate 25 mg 12.5 mg PO DAILY 11/29/21 05/19/24 tablet,extended release 24 hr nitroglycerin 0.4 mg sublingual 0.4 mg sublingual Q5M PRN 11/29/21 05/19/24 tablet pantoprazole 40 mg tablet,delayed 40 mg PO QAM 11/29/21 05/19/24 release potassium chloride 20 mEq 20 meq PO DAILY 11/29/21 05/19/24 tablet,extended release ticagrelor 60 mg tablet (Brilinta) 60 mg PO Q12H 11/29/21 05/19/24 sacubitril 24 mg-valsartan 26 mg 0.5 tablet PO BID 09/04/22 05/19/24 tablet (Entresto) glucosamine [id number] 2 tablet PO DAILY 05/19/24 05/19/24 elise 1,500 mg-400 unit-100 mg tablet (Osteo Bi-Flex (5-Loxin)) Allergies Allergy/AdvReac Type Severity Reaction Status Date / Time carvedilol Allergy Unknown unknown Verified 06/02/24 14:50 lisinopril Allergy Unknown Swelling Verified 06/02/24 14:50 varenicline Allergy Unknown unknown Verified 06/02/24 14:50 [id number] Reductase AdvReac Unknown Verified 06/02/24 14:50 Inhibitor Review of Systems Review of Systems: All systems reviewed & are unremarkable except as noted in HPI and below Constitutional: Constitutional: Reports no additional constitutional complaints Eyes: Eyes: Reports no additional eye complaints ENT: Reports system reviewed and no additional complaints, except as documented and Reports as per HPI Cardiovascular: Cardiovascular: Reports no additional cardiovascular complaints Respiratory: Respiratory: Reports no additional respiratory complaints Gastrointestinal: Gastrointestinal: Reports as per HPI Musculoskeletal: Musculoskeletal: Reports no additional musculoskeletal complaints Integumentary/Breasts: Skin/Breast: Reports system reviewed and no additional complaints, except as docu Neurologic: Reports system reviewed and no additional complaints, except as documented PMFSH Past Medical History Medical History Chronic right shoulder pain Effusion of knee joint Impingement syndrome of right shoulder Left knee DJD Lumbosacral spondylosis with radiculopathy Myocardial infarction 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 Tendinitis of right rotator cuff Surgical History Surgical History H/O heart artery stent Family History Family History Other Acute myocardial infarction Breast cancer Social History Social History Smoking packs per day: 0.5 Smoking cigarettes per day: 10.0 Years smoked: 60 Smoking pack-years: 30.00 Smoking status: Current every day smoker Second hand tobacco smoke exposure: No Smoking end date: 08/12/14 Alcohol intake: never Substance use: never Substance use type: does not use Current Housing: Decline to Answer Concerned About Future Housing: Decline to Answer Difficulty Paying Gas/Electric Bills: Decline to Answer Difficulty Paying for Meds: Decline to Answer Currently Unemployed: Decline to Answer Education: Decline to Answer Difficulty w/ Childcare or Family Care: Decline to Answer Occupation/Education: retired Gender identity (if verbalized by the patient): Male Spiritual care concerns: No Agree to blood products: Yes Exam Narrative: GENERAL: Well-appearing, well-nourished, and in no acute distress. HEAD: Normocephalic, atraumatic. EYES: PERRLA and EOMI. ENT: Nares clear, mild erythema of the tonsillar fossa. Mucous membranes moist. NECK: Supple. CHEST: Clear to auscultation. No respiratory distress. HEART: Regular rate and rhythm. No murmur heard. Normal peripheral pulses. ABDOMEN: Soft, nontender, nondistended, normal active bowel sounds. EXTREMITIES: Normal range of motion. No edema. SKIN: Warm, dry, no rash. NEURO: No focal deficits. Alert and oriented x3. PSYCH: Normal mood and affect. Course Course Emergency Course: Patient comfortably resting in no discomfort. Did inform him about his lab work. I discussed with GI he recommended admission will do EGD in the morning. Notified [facility] will accept the patient. Vital Signs Vital signs: Vital Signs Temperature 36.8 C 06/09/24 10:35 Pulse Rate 99 06/09/24 10:35 Respiratory Rate 16 06/09/24 10:35 Blood Pressure 109/60 06/09/24 10:35 Pulse Oximetry 96 06/09/24 10:35 Oxygen Delivery Room Air 06/09/24 10:35 Temperature 36.8 C 06/09/24 11:46 Pulse Rate 80 06/09/24 12:31 Respiratory Rate 24 H 06/09/24 12:31 Blood Pressure 104/63 06/09/24 12:31 Pulse Oximetry 96 06/09/24 11:46 Oxygen Delivery Room Air 06/09/24 11:46 MDM - Abdominal Pain MDM Narrative Medical decision making narrative: 79-year-old having dysphagia exam is unremarkable will do routine lab workup start IV fluids consult GI. Differential Diagnosis Differential diagnosis: Likely abdominal pain and other (Gerd, esophageal stricture) Medical Records Attestation: I reviewed the patient's medical records. Lab Data Attestation: I reviewed the patient's lab results. 06/09/24 11:52 06/09/24 11:52 Labs: Lab Results 06/09/24 06/09/24 Range/Units 11:52 12:05 WBC 4.7 (4.5-10.0) K/mm3 RBC 4.08 L (4.6-6.20) M/mm3 Hgb 10.9 L (14.0-18.0) g/dL Hct 35.4 L (42.0-52.0) % MCV 86.8 (80-100) fl MCH 26.7 (26-34) pg MCHC 30.8 L (32-36) g/dl RDW 16.5 H (11.5-14.5) % Plt Count 389 H (150-375) k/mm3 MPV 9.1 (7.4-10.4) fl Immature Gran % (Auto) 1.1 H (0-0.5) % Neut % (Auto) 74.1 H (45.5-73.1) % Lymph % (Auto) 17.6 L (18.3-44.2) % [place] % (Auto) 6.6 (2.6-8.5) % Eos % (Auto) 0.4 (0-4.4) % Baso % (Auto) 0.2 (0.2-1.2) % Lymph # (Auto) 0.83 L (0.9-3.2) K/mm3 [place] # (Auto) 0.3 (0.1-0.6) K/mm3 Eos # (Auto) 0.0 (0-0.3) K/mm3 Baso # (Auto) 0.0 (0.0-0.1) K/mm3 Abs Immat Gran (auto) 0.05 H (0.00-0.031) K/mm3 Absolute Neuts (auto) 3.5 (1.3-6.7) K/mm3 Absolute Nucleated RBC 0.000 (0.0-0.012) K/mm3 Nucleated RBC % 0.0 (0.0-0.2) % PT 13.3 (11.1-14.7) Seconds INR 1.0 APTT 44.3 H (22.3-36.8) Seconds Sodium 137 (137-145) mmol/L Potassium 3.8 (3.4-5.0) mmol/L Chloride 101 (98-107) mmol/L Carbon Dioxide 28 (22-30) mmol/L Anion Gap 8 (4-12) mmol/L BUN 13 (9-20) mg/dL Creatinine 0.70 (0.7-1.3) mg/dL Estim Creat Clear Calc 74 ml/min Estimated GFR > 60 (59 - ) Glucose 122 H (65-110) mg/dL Calcium 8.9 (8.4-10.2) mg/dL Total Bilirubin 0.3 (0.2-1.3) mg/dL AST 18 (17-59) U/L ALT 11 (6-50) U/L Alkaline Phosphatase 75 (38-126) U/L Total Protein 7.0 (6.3-8.2) g/dL Albumin 3.7 (3.5-5.1) g/dL Urine Color Yellow (Yellow) Urine Appearance Turbid H (Clear) Urine pH 7.0 (5.0-9.0) Ur Specific [place] 1.022 (1.001-1.035) Urine Protein Trace (Negative) mg/dL Urine Glucose (UA) Negative (Negative) mg/dL Urine Ketones Trace H (Negative) mg/dL Ur Blood (Man) Negative (Negative) Urine Nitrate Negative (Negative) Urine Bilirubin Negative (Negative) Urine Urobilinogen 1.0 (<2.0) mg/dL Leukocyte Esterase Rfl Negative (Negative) BRYN/UL Urine RBC 6-10 H (0-2) /hpf Urine WBC 0-5 (0-3) /hpf Ur Squamous Epith Cells None seen (Few) /hpf Calcium Oxalate Crystal Present (None) /hpf Amorphous Sediment Heavy H (None) Urine Bacteria None seen /hpf Urine Casts 6-10 Hyaline Casts Present (None) /lpf Urine Mucus Present /lpf Discharge Plan Discharge Clinical Impression: Dysphagia Patient Disposition: Still a Patient Condition: Stable Instructions: Antibiotic Form Prescriptions: No Action aspirin 81 mg tablet,delayed release (DR/EC) 81 mg PO DAILY Patient Comments: on provided med list Brilinta 60 mg tablet 60 mg PO Q12H latanoprost 0.005 % drops 1 drp EACH EYE QPM metoprolol succinate 25 mg tablet extended release 24 hr 12.5 mg PO DAILY Patient Comments: on provided med list nitroglycerin 0.4 mg tablet, sublingual 0.4 mg sublingual Q5M PRN Rx Instructions: do not exceed 3 doses per episode pantoprazole 40 mg tablet,delayed release (DR/EC) 40 mg PO QAM potassium chloride 20 mEq tablet extended release 20 meq PO DAILY Entresto 24-26 mg tablet 0.5 tablet PO BID Patient Comments: on provided med list [id number] serr [Osteo Bi-Flex (5-Loxin)] 1,500-400-100 mg-unit-mg tablet 2 tablet PO DAILY Rx Instructions: give after food/meal furosemide 40 mg tablet 40 mg PO BID Qty: 180 2RF albuterol sulfate 90 mcg/actuation HFA aerosol inhaler See Rx Instructions .ROUTE .COMPLEX Qty: 25.5 2RF Dose Instruction: 2 PUFF INHALED EVERY 4 HOURS NEEDED FOR SHORTNESS OF BREATH OR WHEEZING Rx Instructions: 2 PUFF INHALED EVERY 4 HOURS NEEDED FOR SHORTNESS OF BREATH OR WHEEZING metformin 500 mg tablet See Rx Instructions .ROUTE .COMPLEX Qty: 270 2RF Dose Instruction: TAKE 2 TABLETS IN THE MORNING AND 1 TABLET IN THE EVENING Rx Instructions: TAKE 2 TABLETS IN THE MORNING AND 1 TABLET IN THE EVENING fluticasone propion-salmeterol [Advair Diskus] 250-50 mcg/dose blister with device 1 inh inhalation BID Qty: 180 3RF tramadol 50 mg tablet 50 mg PO BID PRN (Reason: pain) Qty: 30 1RF Follow-up/Referrals: Ian Jaeger MD [Primary Care Provider] - Time of Disposition: 14:19
--- NOTE | 2024-06-09 14:30 | P.HP_ITS ---
H&P: HPI History of Present Illness Date/Time: 06/09/24 14:30 Chief Complaint: Abdominal discomfort. Narrative: This is a very pleasant 79-year-old male with with history of GI bleed related to peptic ulcers about 3 years ago, coronary artery disease, congestive heart failure, hypertension, and type 2 diabetes mellitus who presented to the emergency department for evaluation of abdominal discomfort. He gives a 4 day history of dysphagia with both liquids and solids. He feels as though food and pills are getting stuck. He also describes a burning sensation in the stomach which radiates somewhat up into the mid chest. He has nausea with that and a decrease in appetite. The symptoms are similar to those he experienced when he had a bleeding ulcer 3 years ago. Today he was unable to even drink water and he came in for evaluation. He denies concerns for aspiration, bloating, distention, vomiting, hematemesis, melena, and hematochezia. No NSAID use. In the ED: Vital signs were stable on arrival. Labs were significant for hemoglobin of 10.9, hematocrit 35.4%, BUN 13, creatinine 0.70. He was given famotidine 20 mg and is being admitted in this setting for evaluation and treatment as well as GI consultation. Review of Systems Review of Systems: 12 systems were reviewed and are negativ e except for as per HPI. [facility] Past Medical History Medical History (Updated 06/09/24 @ 22:59 by Kerrie Prince PA-C) Chronic right shoulder pain Congestive heart failure Coronary artery disease Effusion of knee joint Hypertension Impingement syndrome of right shoulder Left knee DJD Lumbosacral spondylosis with radiculopathy Myocardial infarction Peptic ulcer 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 Tendinitis of right rotator cuff Type 2 diabetes mellitus Surgical History Surgical History History of coronary artery stent placement Family History Family History Other Acute myocardial infarction Breast cancer Social History Social History (Updated 06/09/24 @ 22:59 by Kerrie Prince PA-C) Social History: Surrogate medical decision maker: Alana Renee, friend. Code status: Full code. Smoking packs per day: 0.5 Smoking cigarettes per day: 10.0 Years smoked: 60 Smoking pack-years: 30.00 Smoking status: Current every day smoker Second hand tobacco smoke exposure: No Alcohol intake: never Substance use: never Substance use type: does not use Do You Feel Safe in your Home?: Yes Lack of Transportation: No Lack of Food: Never True Current Housing: Decline to Answer Concerned About Future Housing: Decline to Answer Difficulty Paying Gas/Electric Bills: Decline to Answer Difficulty Paying for Meds: Decline to Answer Currently Unemployed: Decline to Answer Education: Decline to Answer Difficulty w/ Childcare or Family Care: Decline to Answer Living arrangements: alone Additional living arrangements comments: Lives in [place]. Occupation/Education: retired Additional occupation/education comments: [employer]. Spiritual care concerns: No Agree to blood products: Yes Meds Home Medications and Allergies Home Medications Medication Instructions Recorded Confirmed Type aspirin 81 mg tablet,delayed 81 mg PO DAILY 11/29/21 06/09/24 History release latanoprost 0.005 % eye drops 1 drp EACH EYE QPM 11/29/21 06/09/24 History metoprolol succinate 25 mg 12.5 mg PO DAILY 11/29/21 06/09/24 History tablet,extended release 24 hr nitroglycerin 0.4 mg sublingual 0.4 mg sublingual Q5M PRN Chest 11/29/21 06/09/24 History tablet Pain pantoprazole 40 mg tablet,delayed 40 mg PO QAM 11/29/21 06/09/24 History release potassium chloride 20 mEq 20 meq PO DAILY 11/29/21 06/09/24 History tablet,extended release ticagrelor 60 mg tablet (Brilinta) 60 mg PO Q12H 11/29/21 06/09/24 History sacubitril 24 mg-valsartan 26 mg 1 tablet PO BID 09/04/22 06/09/24 History tablet (Entresto) furosemide 40 mg tablet 40 mg PO BID #180 tabs 12/18/23 06/09/24 Rx albuterol sulfate 90 mcg/actuation See Rx Instructions .Route 01/07/24 06/09/24 Rx aerosol inhaler .COMPLEX #25.5 ea metformin 500 mg tablet See Rx Instructions .Route 01/07/24 06/09/24 Rx .COMPLEX #270 tabs fluticasone 250 mcg-salmeterol 50 1 inh inhalation BID #180 ea 04/03/24 06/09/24 Rx mcg/dose blistr powdr for inhalation (Advair Diskus) glucosamine OTm-H2-Teidlhnfi 2 tablet PO DAILY 05/19/24 06/09/24 History elise 1,500 mg-400 unit-100 mg tablet (Osteo Bi-Flex (5-Loxin)) evolocumab 140 mg/mL subcutaneous See Rx Instructions .Route .COMPLEX 06/09/24 06/09/24 History syringe (Repatha Syringe) tramadol 50 mg tablet See Rx Instructions .Route 06/09/24 06/09/24 History .COMPLEX pain Allergies Allergy/AdvReac Type Severity Reaction Status Date / Time carvedilol Allergy Unknown unknown Verified 06/02/24 14:50 lisinopril Allergy Unknown Swelling Verified 06/02/24 14:50 varenicline Allergy Unknown unknown Verified 06/02/24 14:50 Lnlqriy-WYN-DeC Reductase AdvReac Unknown Verified 06/02/24 14:50 Inhibitor Vital Signs Vital Signs - 24 hr 06/09/24 10:35 06/09/24 11:46 06/09/24 12:15 Temperature 98.2 F 98.2 F Pulse Rate 99 82 74 Respiratory Rate 16 22 H 19 Blood Pressure 109/60 108/70 102/57 L Pulse Oximetry 96 96 Oxygen Delivery Room Air Room Air 06/09/24 12:31 Temperature Pulse Rate 80 Respiratory Rate 24 H Blood Pressure 104/63 Pulse Oximetry Oxygen Delivery Exam Narrative: General: Well-developed elderly gentleman sitting up in bed in no acute distress. Weight: 86.4 kg. BMI: 27.3. HEENT: PERRL, EOMI. Sclera anicteric. Oral mucosa moist. Neck: Supple. Respiratory: Lungs are clear to auscultation bilaterally. Cardiovascular: Regular rate and rhythm with S1-S2. Gastrointestinal: Abdomen is soft, nontender, and nondistended with positive bowel sounds. No guarding or rebound tenderness. Skin: Warm and dry. Extremities: No cyanosis, clubbing, or significant edema. Radial and pedal pulses intact. Neurological: Alert. Cranial nerves 2-12 are grossly intact. No gross focal deficits to casual conversation. Psychiatric: Pleasant and cooperative with normal mood and affect. Judgment and insight intact. He is in good spirits. H&P: Results Labs Labs: Short CBC 06/09/24 Range/Units 11:52 WBC 4.7 (4.5-10.0) K/mm3 Hgb 10.9 L (14.0-18.0) g/dL Hct 35.4 L (42.0-52.0) % Plt Count 389 H (150-375) k/mm3 BMP 06/09/24 11:52 Sodium 137 Potassium 3.8 Chloride 101 Carbon Dioxide 28 BUN 13 Creatinine 0.70 Glucose 122 H Calcium 8.9 Liver Function 06/09/24 Range/Units 11:52 Total Bilirubin 0.3 (0.2-1.3) mg/dL AST 18 (17-59) U/L ALT 11 (6-50) U/L Alkaline Phosphatase 75 (38-126) U/L Albumin 3.7 (3.5-5.1) g/dL Urine 06/09/24 Range/Units 12:05 Urine Color Yellow (Yellow) Urine Appearance Turbid H (Clear) Urine pH 7.0 (5.0-9.0) Ur Specific [place] 1.022 (1.001-1.035) Urine Protein Trace (Negative) mg/dL Urine Glucose (UA) Negative (Negative) mg/dL Assessment and Plan Assessment and plan (1) Dysphagia: Qualifiers: Dysphagia type: esophageal phase Qualified Code(s): R13.19 - Other dysphagia Code(s): R13.10 - Dysphagia, unspecified Status: Acute (2) Epigastric burning sensation: Code(s): R10.13 - Epigastric pain Status: Acute (3) Coronary artery disease: Code(s): I25.10 - Atherosclerotic heart disease of jamul coronary artery without angina pectoris Status: Acute (4) Congestive heart failure: Code(s): I50.9 - Heart failure, unspecified Status: Acute (5) Type 2 diabetes mellitus: Code(s): E11.9 - Type 2 diabetes mellitus without complications Status: Acute (6) Hypertension: Code(s): I10 - Essential (primary) hypertension Status: Acute Plan The patient presented to the emergency department for evaluation of a burning sensation the upper abdomen and dysphagia as detailed in HPI. Labs, imaging, EKG, and all reports were personally reviewed. He has a history of peptic ulcer several years ago and these findings are somewhat similar. Continue pantoprazol e. He will be NPO after midnight for possible endoscopy tomorrow. He appears clinically compensated with regards to his congestive heart failure. No recent issues with chest pain. Blood pressures were reviewed and they are stable. Hold metformin and dual antiplatelet therapy. Initiate sliding scale insulin, Accu- Cheks, and hypoglycemic protocol. His home medications will be reviewed and resumed as appropriate. Findings and treatment plan were discussed with the patient. Questions were solicited and answered to satisfaction. The patient's medical management will be taken over by the hospitalist team in a.m. Quality VTE Prophylaxis VTE prophylaxis: mechanical ordered If No VTE Prophylaxis Answer both mechanical and pharmacologic: Reason no pharmacologic proph: medical contraindication (may need endoscopy) The patient has been admitted under observation status. Hospitalist [facility] Advance Care Plan I have confirmed that the patient's Advanced Care Plan is present, code status is documented, or surrogate decision maker is listed in patient medical record.: Yes Medication Reconciliation I have utilized all available resources to obtain, update and review the patients current medications (includes all prescriptions, OTC, herbals, cannabis, and nutritional supplements).: Yes
[2024-06-09] MEDS: SODIUM CHLORIDE 0.9% IV 1,000 ML 125 ML IV CONT ×2 (14:34→18:46)
--- NOTE | 2024-06-09 14:55 | PC.NURSE ---
Patients spouse provided this RN here phone number. [phone]
--- NOTE | 2024-06-09 15:38 | ADMGEN ---
This patient, Phill Monae, was admitted to Medical Room 345-. Patient/family oriented to hospital policies and general routines including ID bracelet, bed and alarms, visiting hours, pain management, procedures, bathroom and other care routines, personal items, smoking policy, room service/diet, and visiting hours. Information on how to activate the Rapid Response Team has been discussed. Patient/Family are encouraged to report perceived risks to care and to ask questions if they do not understand what they are told or what they should do.
[2024-06-09 15:46] LABS: Strep Group A RT-PCR NOT DETECTED (Negative)
--- NOTE | 2024-06-09 17:03 | WPDGICN ---
Assessment and Plan Assessment and plan (1) Dysphagia: Qualifiers: Dysphagia type: esophageal phase Qualified Code(s): R13.19 - Other dysphagia <Eunice Servin, [employer] FINAL INSPECTOR - Last Filed: 06/09/24 17:12> Code(s): R13.10 - Dysphagia, unspecified <Eunice Servin, [employer]OR[employer] FINAL INSPECTOR - Last Filed: 06/09/24 17:12> Status: Acute <Eunice Servin, [employer]OR[employer] FINAL INSPECTOR - Last Filed: 06/09/24 17:12> (2) Odynophagia: Code(s): R13.10 - Dysphagia, unspecified <Eunice Servin, [employer]OR[employer] FINAL INSPECTOR - Last Filed: 06/09/24 17:12> Status: Acute <Eunice Servin, [employer]OR[employer] FINAL INSPECTOR - Last Filed: 06/09/24 17:12> (3) GERD (gastroesophageal reflux disease): Qualifiers: Esophagitis presence: esophagitis presence not specified Qualified Code(s): K21.9 - Gastro-esophageal reflux disease without esophagitis <Eunice Servin, [employer] FINAL INSPECTOR - Last Filed: 06/09/24 17:12> Code(s): K21.9 - Gastro-esophageal reflux disease without esophagitis <Eunice Servin, [employer] FINAL INSPECTOR - Last Filed: 06/09/24 17:12> Status: Acute <Eunice Servin, MOTOR[employer] FINAL INSPECTOR - Last Filed: 06/09/24 17:12> (4) Nausea: Code(s): R11.0 - Nausea <Eunice Servin, [employer]OR[employer] FINAL INSPECTOR - Last Filed: 06/09/24 17:12> Status: Acute <Eunice Servin, [employer]OR[employer] FINAL INSPECTOR - Last Filed: 06/09/24 17:12> (5) Decreased appetite: Code(s): R63.0 - Anorexia <Eunice Servin, [employer] FINAL INSPECTOR - Last Filed: 06/09/24 17:12> Status: Acute <Eunice Servin, [employer]OR[employer] FINAL INSPECTOR - Last Filed: 06/09/24 17:12> Assessment and Plan: 1) Dysphagia/odynophagia /nausea / decreased appetite / GERD: Per patient last EGD performed approximately 3 years ago at which time he was diagnosed with a bleeding gastric ulcer. For the past 4 days the patient has been experiencing intermittent dysphagia with solid foods, liquids, and pills. He also complains of pain with swallowing, decreased appetite, and occasional nausea without vomiting. Patient admits that he takes multiple large pills including potassium but does not always drink adequate water while taking the medication. Reflux controlled on pantoprazole 40 mg daily which he was taking prior to admission. No recent GI imaging available. DDX: pill esophagitis versus esophageal ring or stricture versus motility disorder less likely neoplasm. EGD tomorrow NPO after midnight continue famotidine 20 mg b.i.d. further recommendations to follow endoscopy Thank you very much for allowing me to share in the care this very nice patient This report may have been done utilizing a voice recognition system. Attempts have been made to correct errors. However, there may be uncorrected grammatical, spelling, and recognition errors present. <Euncie Servin APRN - Last Filed: 06/09/24 17:12> GI Consult Note Consult date/time: 06/09/24 17:03 <Eunice Servin APRN - Last Filed: 06/09/24 17:12> Reason for consult: Dysphagia <Eunice Servin APRN - Last Filed: 06/09/24 17:12> I have reviewed our nurse practitioner's note, examined the patient and pertinent laboratory data. We have discussed the plan extensively and agreed with was stated in the note. The patient's acute onset of odynophagia and the fact that he takes potassium tablets with not enough water, makes pill induced esophagitis the most likely diagnosis. Will perform EGD tomorrow, I will keep patient NPO. <Arjun Valentino MD - Last Filed: 06/09/24 18:11> HPI: This is an 79-year-old male with history of MN and cardiac stent placement. He presented to the emergency room today with complaints of upper abdominal pain and inability to take any p.o. intake. GI has been consulted for dysphagia. Patient states that over the past 4 days he has been experiencing intermittent dysphagia with solid foods, liquids, and pills. Patient takes multiple large pills including potassium and admits that sometimes he does not drink enough water while taking pills. He also complains of odynophagia and decreased appetite. He has intermittent nausea without vomiting and abdominal bloating. Reflux controlled on Protonix 40 mg daily prior to admission. He is having a bowel movement every 2-3 days with occasional straining. He denies abdominal pain, early satiety , unexplained weight loss, diarrhea, hematochezia, or melena. Patient is on aspirin 81 mg daily but denies any other NSAID or anticoagulant use. ENDOSCOPY HISTORY: EGD: Per patient last EGD performed approximately [address] Nickerson at [facility] at which time he was diagnosed with a bleeding gastric ulcer which he states was clipped but he has had no follow-up GI since COLONOSCOPY: Colonoscopy [address] Nickerson, results unknown LABS AND STOOL STUDIES: Labs 06/09/2024 showed sodium 137, potassium 3.8, BUN 13, creatinine 0.70, GFR > 60. WBC is 5, HGB 11, HCT 35, MCV 87, platelets 389, INR 1.0. Total bilirubin 0.3, AST 18, ALT 11, alkaline phosphatase 75, albumin 3.7. BNP (05/25/2024 )1540 IMAGING: No recent GI imaging available today's visit <Eunice Servin APRN - Last Filed: 06/09/24 17:12> Review of Systems Constitutional: Constitutional: Reports as per HPI <Eunice Servin APRN - Last Filed: 06/09/24 17:12> ENT: Reports as per HPI <Eunice Servin APRN - Last Filed: 06/09/24 17:12> Cardiovascular: Cardiovascular: Reports as per HPI, Denies chest pain and Denies dyspnea <Eunice Servin APRN - Last Filed: 06/09/24 17:12> Respiratory: Respiratory: Denies cough and Denies dyspnea <Eunice Servin APRN - Last Filed: 06/09/24 17:12> Gastrointestinal: Gastrointestinal: Reports as per HPI <Eunice Servin APRN - Last Filed: 06/09/24 17:12> Musculoskeletal: Musculoskeletal: Reports as per HPI <Eunice Servin APRN - Last Filed: 06/09/24 17:12> Integumentary/Breasts: Skin/Breast: Reports as per HPI <Eunice Servin APRN - Last Filed: 06/09/24 17:12> Psychiatric: Psychiatric: Reports as per HPI <Eunice Servin APRN - Last Filed: 06/09/24 17:12> Endocrine: Endocrine: Reports no additional endocrine complaints <Eunice Servin APRN - Last Filed: 06/09/24 17:12> Hematologic/Lymphatic: Hematologic/Lymphatic: Reports no additional hematologic/lymphatic complaints <Eunice Servin APRN - Last Filed: 06/09/24 17:12> PMF Past Medical History Medical History: Medical History (Updated 06/09/24 @ 17:11 by Eunice Servin APRN) Chronic right shoulder pain Congestive heart failure Coronary artery disease Effusion of knee joint Impingement syndrome of right shoulder Left knee DJD Lumbosacral spondylosis with radiculopathy Myocardial infarction Peptic ulcer 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 Tendinitis of right rotator cuff <Eunice Servin APRN - Last Filed: 06/09/24 17:12> Surgical History Surgical History: Surgical History (Updated 06/09/24 @ 16:14 by Kerrie Prince PA-C) History of coronary artery stent placement <Eunice Servin APRN - Last Filed: 06/09/24 17:12> Family History Family History: Family History Other Acute myocardial infarction Breast cancer <Eunice Servin APRN - Last Filed: 06/09/24 17:12> Social History Social History: Social History (Updated 06/09/24 @ 16:15 by Kerrie Prince PA-C) Social History: Surrogate medical decision maker: Code status: Full code. Smoking packs per day: 0.5 Smoking cigarettes per day: 10.0 Years smoked: 60 Smoking pack-years: 30.00 Smoking status: Former smoker Second hand tobacco smoke exposure: No Smoking end date: 08/12/14 Alcohol intake: never Substance use: never Substance use type: does not use Current Housing: Decline to Answer Concerned About Future Housing: Decline to Answer Difficulty Paying Gas/Electric Bills: Decline to Answer Difficulty Paying for Meds: Decline to Answer Currently Unemployed: Decline to Answer Education: Decline to Answer Difficulty w/ Childcare or Family Care: Decline to Answer Occupation/Education: retired Spiritual care concerns: No Agree to blood products: Yes <Eunice Servin, [employer] FINAL INSPECTOR - Last Filed: 06/09/24 17:12> Meds Home Medications and Allergies Home medications: Home Medications Medication Instructions Recorded Confirmed Type aspirin 81 mg tablet,delayed 81 mg PO DAILY 11/29/21 06/09/24 History release latanoprost 0.005 % eye drops 1 drp EACH EYE QPM 11/29/21 06/09/24 History metoprolol succinate 25 mg 12.5 mg PO DAILY 11/29/21 06/09/24 History tablet,extended release 24 hr nitroglycerin 0.4 mg sublingual 0.4 mg sublingual Q5M PRN Chest 11/29/21 06/09/24 History tablet Pain pantoprazole 40 mg tablet,delayed 40 mg PO QAM 11/29/21 06/09/24 History release potassium chloride 20 mEq 20 meq PO DAILY 11/29/21 06/09/24 History tablet,extended release ticagrelor 60 mg tablet (Brilinta) 60 mg PO Q12H 11/29/21 06/09/24 History sacubitril 24 mg-valsartan 26 mg 1 tablet PO BID 09/04/22 06/09/24 History tablet (Entresto) furosemide 40 mg tablet 40 mg PO BID #180 tabs 12/18/23 06/09/24 Rx albuterol sulfate 90 mcg/actuation See Rx Instructions .Route 01/07/24 06/09/24 Rx aerosol inhaler .COMPLEX #25.5 ea metformin 500 mg tablet See Rx Instructions .Route 01/07/24 06/09/24 Rx .COMPLEX #270 tabs fluticasone 250 mcg-salmeterol 50 1 inh inhalation BID #180 ea 04/03/24 06/09/24 Rx mcg/dose blistr powdr for inhalation (Advair Diskus) glucosamine [id number]-U5-Raetmkaan 2 tablet PO DAILY 05/19/24 06/09/24 History elise 1,500 mg-400 unit-100 mg tablet (Osteo Bi-Flex (5-Loxin)) evolocumab 140 mg/mL subcutaneous See Rx Instructions .Route .COMPLEX 06/09/24 06/09/24 History syringe (Repatha Syringe) tramadol 50 mg tablet See Rx Instructions .Route 06/09/24 06/09/24 History .COMPLEX pain <Eunice Servin APRN - Last Filed: 06/09/24 17:12> Allergies/Adverse reactions: Allergies Allergy/AdvReac Type Severity Reaction Status Date / Time carvedilol Allergy Unknown unknown Verified 06/02/24 14:50 lisinopril Allergy Unknown Swelling Verified 06/02/24 14:50 varenicline Allergy Unknown unknown Verified 06/02/24 14:50 [id number]-[id number] Reductase AdvReac Unknown Verified 06/02/24 14:50 Inhibitor <Eunice Servin APRN - Last Filed: 06/09/24 17:12> Vital Signs Vital Signs - 24 hr 06/09/24 10:35 06/09/24 11:46 06/09/24 12:15 Temperature 98.2 F 98.2 F Pulse Rate 99 82 74 Respiratory Rate 16 22 H 19 Blood Pressure 109/60 108/70 102/57 L Pulse Oximetry 96 96 Oxygen Delivery Room Air Room Air 06/09/24 12:31 06/09/24 12:45 06/09/24 13:01 Temperature Pulse Rate 80 79 88 Respiratory Rate 24 H 26 H 21 H Blood Pressure 104/63 114/76 110/59 L Pulse Oximetry 99 Oxygen Delivery 06/09/24 13:16 06/09/24 13:30 06/09/24 13:58 Temperature Pulse Rate 78 78 77 Respiratory Rate 25 H 24 H 24 H Blood Pressure 104/56 L 104/64 Pulse Oximetry 99 98 99 Oxygen Delivery 06/09/24 14:46 06/09/24 15:16 Temperature Pulse Rate 82 75 Respiratory Rate 20 19 Blood Pressure 110/69 114/55 L Pulse Oximetry 98 Oxygen Delivery <Eunice Servin APRN - Last Filed: 06/09/24 17:12> Exam Const: General: cooperative, healthy appearing, comfortable, no acute distress and well developed <Eunicesandeep Servin APRN Last Filed: 06/09/24 17:12> Orientation/consciousness: oriented to person, oriented to place, oriented to time and patient oriented x3 <Eunicesandeep Servin APRN Last Filed: 06/09/24 17:12> HENMT: Head: normal to inspection, normocephalic and atraumatic <Eunicesandeep Servin APRN Last Filed: 06/09/24 17:12> Mouth: Yes Normal oral and palatal mucosa present and Yes moist mucous membranes <Eunice Charles [facility] Last Filed: 06/09/24 17:12> Eyes: General: appearance normal, both eyes and all related structures <Eunicesandeep Servin APRN Last Filed: 06/09/24 17:12> Conjunctivae: conjunctivae normal <Eunice Servin APRN Last Filed: 06/09/24 17:12> Sclera: sclerae normal <Eunice Charles Servin [employer] FINAL INSPECTOR Last Filed: 06/09/24 17:12> Pupils: Equal, round and reactive pupils present <Eunicesandeep Servin APRN Last Filed: 06/09/24 17:12> Neck: Neck: normal visual inspection <Eunice Servin APRN Last Filed: 06/09/24 17:12> Chest: Chest palpation & inspection: normal inspection of the chest <Eunice Servin APRN Last Filed: 06/09/24 17:12> Resp: Effort & Inspection: normal respiratory effort and able to speak in complete sentences <[facility]icesandeep [facility] Last Filed: 06/09/24 17:12> Auscultation: clear to auscultation bilaterally <Eunice Servin APRN Last Filed: 06/09/24 17:12> Cardio: Jugular venous distension: no JVD <Eunice Servin APRN Last Filed: 06/09/24 17:12> Rate: regular rate <Eunice Servin APRN Last Filed: 06/09/24 17:12> Rhythm: regular rhythm <Eunice Servin APRN Last Filed: 06/09/24 17:12> Heart sounds: S1 normal heart sound present and S2 normal heart sound present <Eunice Servin APRN - Last Filed: 06/09/24 17:12> GI: Inspection: normal to inspection <Eunice Hillmanmaurinicole [employer] FINAL INSPECTOR - Last Filed: 06/09/24 17:12> GI Palp: Yes Soft to palpation and Yes No hepatosplenomegaly present <Eunice Servin [employer] FINAL INSPECTOR - Last Filed: 06/09/24 17:12> Auscultation: normal bowel sounds <Eunice Hillmanghassan [employer] FINAL INSPECTOR Last Filed: 06/09/24 17:12> Rectal Exam: deferred <Eunice Hillmanmaurinicole [employer]OR[employer] FINAL INSPECTOR Last Filed: 06/09/24 17:12> Skin: General skin exam: normal color and no rashes or lesions noted <Eunice Hillmanmaurinicole [employer]OR[employer] FINAL INSPECTOR Last Filed: 06/09/24 17:12> Neuro: General: oriented to person, oriented to place, oriented to time and patient oriented x3 <Eunice Hillmanghassan [employer]OR[employer] FINAL INSPECTOR Last Filed: 06/09/24 17:12> Cranial nerves: Yes Equal, round and reactive pupils present <Eunice Hillmanghassan [employer]OR[employer] FINAL INSPECTOR Last Filed: 06/09/24 17:12> Speech: normal speech <Eunice Hillmanghassan [employer]OR[employer] FINAL INSPECTOR Last Filed: 06/09/24 17:12> Extrem: General: normal to inspection and no clubbing, cyanosis or edema <Eunice Hillmanghassan [employer]OR[employer] FINAL INSPECTOR Last Filed: 06/09/24 17:12> Psych: Appearance: grossly normal and well kempt <Eunice HillmanSHIRLEY ferrell - Last Filed: 06/09/24 17:12> Affect: normal affect <Eunice Hillmanghassan [employer]OR[employer] FINAL INSPECTOR - Last Filed: 06/09/24 17:12> Results Labs CBC & Chem 7: 06/09/24 11:52 06/09/24 11:52 <Eunice DCar Servin APRN - Last Filed: 06/09/24 17:12> Labs: Short CBC 06/09/24 Range/Units 11:52 WBC 4.7 (4.5-10.0) K/mm3 Hgb 10.9 L (14.0-18.0) g/dL Hct 35.4 L (42.0-52.0) % Plt Count 389 H (150-375) k/mm3 BMP 06/09/24 11:52 Sodium 137 Potassium 3.8 Chloride 101 Carbon Dioxide 28 BUN 13 Creatinine 0.70 Glucose 122 H Calcium 8.9 Liver Function 06/09/24 Range/Units 11:52 Total Bilirubin 0.3 (0.2-1.3) mg/dL AST 18 (17-59) U/L ALT 11 (6-50) U/L Alkaline Phosphatase 75 (38-126) U/L Albumin 3.7 (3.5-5.1) g/dL Urine 06/09/24 Range/Units 12:05 Urine Color Yellow (Yellow) Urine Appearance Turbid H (Clear) Urine pH 7.0 (5.0-9.0) Ur Specific [place] 1.022 (1.001-1.035) Urine Protein Trace (Negative) mg/dL Urine Glucose (UA) Negative (Negative) mg/dL <Eunice Servin APRN - Last Filed: 06/09/24 17:12>
[2024-06-09] MEDS: FAMOTIDINE 20 MG/2 ML VIAL IV PUSH (17:42)
[2024-06-09] MEDS: ONDANSETRON INJ 4 MG/2 ML VIAL IV PUSH ×2 (17:43→23:24)
[2024-06-09 21:43] LABS: Glucose Point of Care 137 mg/dl (65-105)
[2024-06-09] MEDS: SACUBITRIL/VALSARTAN 24-26 MG TABLET 1 TAB PO (23:24)
[2024-06-10] VITALS (9 sets, daily range): BP systolic 92–120; BP diastolic 48–73; PULSE 69–87; RESP 17–28; TEMP 36.3–36.6; O2SAT 96–100
[2024-06-10] MEDS: traMADol HCL (*CRX) 50 MG TABLET BY MOUTH ×2 (01:09→20:51)
[2024-06-10 07:12] LABS: Hematocrit 34.7 % (42.0-52.0); Hemoglobin 10.3 g/dL (14.0-18.0); Mean Corpuscular HGB Conc 29.7 g/dl (32-36); Mean Corpuscular Hemoglobin 26.3 pg (26-34); Mean Corpuscular Volume 88.7 fl (80-100); Mean Platelet Volume 9.2 fl (7.4-10.4); Platelet Count Result 343 k/mm3 (150-375); Red Blood Count 3.91 M/mm3 (4.6-6.20); Red Cell Distribution Width 16.7 % (11.5-14.5)
[2024-06-10 07:38] LABS: Anion Gap 6 mmol/L (4-12); Blood Urea Nitrogen 7 mg/dL (9-20); Calcium 8.6 mg/dL (8.4-10.2); Carbon Dioxide 30 mmol/L (22-30); Chloride 104 mmol/L (98-107); Estimated CRCL calculation 74 ml/min; Estimated Glomerular Filt Rate > 60; Glucose 99 mg/dL (65-110); Magnesium 2.2 mg/dL (1.6-2.3); Potassium 3.8 mmol/L (3.4-5.0); Sodium 140 mmol/L (137-145)
[2024-06-10] MEDS: FLUTICASONE/SALMETEROL 115-21 MCG INHALER 1 PUFF 2 PUFF INHALATION ×2 (08:18→21:57)
[2024-06-10 08:35] LABS: Glucose Point of Care 115 mg/dl (65-105)
[2024-06-10] MEDS: SACUBITRIL/VALSARTAN 24-26 MG TABLET 1 TAB PO ×2 (09:36→20:51)
[2024-06-10] MEDS: PANTOPRAZOLE SODIUM IV 40 MG VIAL IV PUSH ×2 (09:36→20:51)
--- NOTE | 2024-06-10 11:21 | P.PNIM_ITS ---
Progress Note: A&P Assessment and Plan (1) Dysphagia: Qualifiers: Dysphagia type: esophageal phase Qualified Code(s): R13.19 - Other dysphagia Code(s): R13.10 - Dysphagia, unspecified Status: Acute Assessment and Plan: Patient states he feels as if things were getting stuck in his throat for the past 4 days. * GI consulted * EGD shown grade 2 ulcer the proximal esophagus, hiatal hernia, biopsies taken. * Recommend fluconazole 100 mg b.i.d. for 14 days for Sandee esophagitis * Advanced diet as tolerated starting with clears (2) Epigastric burning sensation: Code(s): R10.13 - Epigastric pain Status: Acute Assessment and Plan: * GI following * Continue Protonix b.i.d. (3) Coronary artery disease: Code(s): I25.10 - Atherosclerotic heart disease of teller coronary artery without angina pectoris Status: Acute Assessment and Plan: * hold aspirin for now (4) Congestive heart failure: Code(s): I50.9 - Heart failure, unspecified Status: Acute Assessment and Plan: * Continue Lasix, metoprolol, Entresto (5) Type 2 diabetes mellitus: Code(s): E11.9 - Type 2 diabetes mellitus without complications Status: Acute Assessment and Plan: * Blood sugars ranging 115-137 * Hgb A1C 6.5 * Accu checks AC/HS * Low dose SSI ordered * hypoglycemic protocol in place * Currently NPO due to dysphagia * Hold metformin (6) Hypertension: Code(s): I10 - Essential (primary) hypertension Status: Acute Assessment and Plan: * Blood pressure 104/63-118/48 * Currently on Lasix, Entresto, and Metoprolol Time Spent With Patient Time with patient: Greater than 35 minutes Subjective Date/time seen: 06/10/24 11:21 Interval history: Interval history: This is an 79-year-old male presented to the hospital on 06/09/2024 with abdominal pain. Patient states that he has had trouble with dysphagia with both liquids and solids for the past 4 days he feels as if things were getting stuck in his throat. He states that the symptoms are similar to when he had a bleeding ulcer 3 years ago. Workup in the hospital included labs which showed an RBC of 4.08, hemoglobin 10.9, glucose 122, otherwise unremarkable. UA was obtained which showed trace ketone, 6-10 urine RBC, heavy amorphous sediment, 6- 10 urine cast. Strep test was negative. Patient was given IV fluids, Pepcid, morphine while in the ED. Subjective: Patient denies any fever, chills, nausea, vomiting, diarrhea, abdominal pain, chest pain, shortness a breath. Patient endorses burning pain in esophagus. Review of Systems Review of Systems: 12 systems were reviewed and are negativ e except for as per HPI. All systems reviewed & are unremarkable except as noted in HPI and below Constitutional: Constitutional: Reports as per HPI and Reports no additional constitutional complaints Eyes: Eyes: Reports as per HPI and Reports no additional eye complaints ENT: Reports system reviewed and no additional complaints, except as documented and Reports as per HPI Cardiovascular: Cardiovascular: Reports as per HPI and Reports no additional cardiovascular complaints Respiratory: Respiratory: Reports as per HPI and Reports no additional respiratory complaints Gastrointestinal: Gastrointestinal: Reports as per HPI and Reports no additional gastrointestinal complaints Genitourinary: Genitourinary: Reports no additional male genitourinary complaints and Reports as per HPI Musculoskeletal: Musculoskeletal: Reports no additional musculoskeletal complaints and Reports as per HPI Integumentary/Breasts: Skin/Breast: Reports system reviewed and no additional complaints, except as docu and Reports as per HPI Neurologic: Reports system reviewed and no additional complaints, except as documented and Reports as per HPI Psychiatric: Psychiatric: Reports no additional psychiatric complaints and Reports as per HPI Exam Narrative: General: In no acute distress, well nourished Head: atraumatic, no encephalopathy Eyes: EOMI, PERRLA, sclera clear ENT: moist mucous membranes, nasal passages clear Neck: supple, no JVD, no adenopathy, trachea midline Cardiac: Normal S1 and S2. No murmur, gallops or friction rubs, peripheral pulses intact. Respiratory: Lungs clear to auscultation, no adventitious lung sounds, currently on room air Gastrointestinal: soft, non-distended, non-tender, normoactive bowel sounds. : voiding without difficulty. Extremities: moves all extremities well, no edema Skin: clean, dry, intact. No wounds or lesions. Neuro: Alert and oriented x4, cranial nerves intact, no neuro deficits. Psych: normal mood, normal affect, interactive Objective Data Vital Signs Vital Signs: Vital Signs - 24 hr 06/09/24 11:46 06/09/24 12:15 06/09/24 12:31 Temperature 98.2 F Pulse Rate 82 74 80 Respiratory Rate 22 H 19 24 H Blood Pressure 108/70 102/57 L 104/63 Pulse Oximetry 96 Oxygen Delivery Room Air 06/09/24 12:45 06/09/24 13:01 06/09/24 13:16 Temperature Pulse Rate 79 88 78 Respiratory Rate 26 H 21 H 25 H Blood Pressure 114/76 110/59 L 104/56 L Pulse Oximetry 99 99 Oxygen Delivery 06/09/24 13:30 06/09/24 13:58 06/09/24 14:46 Temperature Pulse Rate 78 77 82 Respiratory Rate 24 H 24 H 20 Blood Pressure 104/64 110/69 Pulse Oximetry 98 99 98 Oxygen Delivery 06/09/24 15:16 06/09/24 18:41 06/09/24 20:11 Temperature 98.3 F Pulse Rate 75 87 Respiratory Rate 19 18 Blood Pressure 114/55 L 104/63 Pulse Oximetry 97 Oxygen Delivery Room Air 06/10/24 04:35 06/10/24 08:18 06/10/24 08:00 Temperature 97.7 F Pulse Rate 73 Respiratory Rate 18 Blood Pressure 118/48 L Pulse Oximetry 96 96 Oxygen Delivery Room Air Room Air Intake/Output Intake/Output: Intake & Output 06/07/24 06/08/24 06/09/24 06/10/24 23:59 23:59 23:59 23:59 Intake Total 1457.5 1200 Balance 1457.5 1200 Meds/Results Medications: Active Medications Generic Name Dose Route Start Last Admin Trade Name Freq PRN Reason Stop Dose Admin Albuterol 2 puff 06/09/24 23:05 Albuterol Sulfate (*Sp) Aerosol 1 Puff INHALATION Q4H PRN Shortness Of Breath Or Wheezing Dextrose 12.5 gm 06/09/24 23:03 Dextrose 50% 25 Gm/50 Ml Syringe IV PUSH PRN PRN Hypoglycemia Protocol Furosemide 40 mg 06/10/24 09:00 Furosemide 40 Mg Tablet PO BID [facility] Glucagon 1 mg 06/09/24 23:03 Glucagon For Inj 1 Mg Vial IM PRN PRN Hypoglycemia Protocol Glucose 15 gm 06/09/24 23:03 Glucose Oral Gel 15 Gm Of Glucse In 37.5 Gm Tube PO PRN PRN Hypoglycemia Protocol Dextrose 1,000 mls @ 100 mls/hr 06/09/24 23:03 Dextrose 5% 1,000 Ml IVPB PRN PRN Hypoglycemia Protocol Lactated Ringer's 1,000 mls @ 150 mls/hr 06/10/24 07:30 Lr - Lactated Ringers Iv IV CONT .[id number] [facility] Insulin Aspart 2 - 5 units 06/10/24 08:00 06/10/24 09:03 Insulin Aspart (*Bkc) 100 Units/Ml SUB-Q Not Given TIDWM [facility] Protocol Insulin Aspart 1 - 2 units 06/10/24 21:00 Insulin Aspart (*Bkc) 100 Units/Ml SUB-Q HS [facility] Protocol Latanoprost 1 drop 06/10/24 18:00 Latanoprost 0.005% Op Soln 2.5 Ml Btl EACH EYE QPM [facility] Metoprolol Succinate 12.5 mg 06/10/24 09:00 Metoprolol Succinate Ext Rel 12.5 Mg Tabcr PO DAILY [facility] Glucosamine-D3- 2 each 06/10/24 09:00 Boswellia Serr [ XX 06/11/24 08:59 Osteo Bi-Flex (5- DAILY [facility] Loxin)] 1,500-400- 100 M Ondansetron HCl 4 mg 06/09/24 14:20 06/09/24 23:24 Ondansetron Inj 4 Mg/2 Ml Vial IV PUSH 4 mg Q4H PRN Administration Nausea Pantoprazole Sodium 40 mg 06/10/24 09:00 06/10/24 09:36 Pantoprazole Sodium Iv 40 Mg Vial IV PUSH 40 mg Q12HR [facility] Administration Potassium Chloride 20 meq 06/10/24 08:00 Potassium Chloride 20 Meq Er Tablet PO DAILY@0800 [facility] Sacubitril/Valsartan 1 tab 06/09/24 23:15 06/10/24 09:36 Sacubitril/Valsartan 24-26 Mg Tablet PO 1 tab Q12HR [facility] Administration Fluticasone/Salmeterol 2 puff 06/10/24 08:00 06/10/24 08:18 Fluticasone/Salmeterol 115-21 Mcg Inhaler 1 Puff INHALATION 2 puff Q12HRT [facility] Administration Tramadol HCl 50 mg 06/09/24 23:05 06/10/24 01:09 Tramadol Hcl (*Crx) 50 Mg Tablet BY MOUTH 50 mg Q12H PRN Administration Pain Rated 4-6 Labs Labs: Laboratory Results - last 24 hr 06/09/24 06/09/24 06/09/24 11:52 12:05 14:16 WBC 4.7 RBC 4.08 L Hgb 10.9 L Hct 35.4 L MCV 86.8 MCH 26.7 MCHC 30.8 L RDW 16.5 H Plt Count 389 H MPV 9.1 Immature Gran % (Auto) 1.1 H Neut % (Auto) 74.1 H Lymph % (Auto) 17.6 L [place] % (Auto) 6.6 Eos % (Auto) 0.4 Baso % (Auto) 0.2 Lymph # (Auto) 0.83 L [place] # (Auto) 0.3 Eos # (Auto) 0.0 Baso # (Auto) 0.0 Abs Immat Gran (auto) 0.05 H Absolute Neuts (auto) 3.5 Absolute Nucleated RBC 0.000 Nucleated RBC % 0.0 PT 13.3 INR 1.0 APTT 44.3 H Sodium 137 Potassium 3.8 Chloride 101 Carbon Dioxide 28 Anion Gap 8 BUN 13 Creatinine 0.70 Estim Creat Clear Calc 74 Estimated GFR > 60 Glucose 122 H POC Capillary Glucose Calcium 8.9 Magnesium Total Bilirubin 0.3 AST 18 ALT 11 Alkaline Phosphatase 75 Total Protein 7.0 Albumin 3.7 Urine Color Yellow Urine Appearance Turbid H Urine pH 7.0 Ur Specific [place] 1.022 Urine Protein Trace Urine Glucose (UA) Negative Urine Ketones Trace H Ur Blood (Man) Negative Urine Nitrate Negative Urine Bilirubin Negative Urine Urobilinogen 1.0 Leukocyte Esterase Rfl Negative Urine RBC 6-10 H Urine WBC 0-5 Ur Squamous Epith Cells None seen Calcium Oxalate Crystal Present Amorphous Sediment Heavy H Urine Bacteria None seen Urine Casts 6-10 Hyaline Casts Present Urine Mucus Present Group A Strep (PCR) Not detected 06/09/24 06/10/24 06/10/24 20:17 06:40 08:25 WBC 4.0 L RBC 3.91 L Hgb 10.3 L Hct 34.7 L MCV 88.7 MCH 26.3 MCHC 29.7 L RDW 16.7 H Plt Count 343 MPV 9.2 Immature Gran % (Auto) Neut % (Auto) Lymph % (Auto) [place] % (Auto) Eos % (Auto) Baso % (Auto) Lymph # (Auto) [place] # (Auto) Eos # (Auto) Baso # (Auto) Abs Immat Gran (auto) Absolute Neuts (auto) Absolute Nucleated RBC Nucleated RBC % PT INR APTT Sodium 140 Potassium 3.8 Chloride 104 Carbon Dioxide 30 Anion Gap 6 BUN 7 L D Creatinine 0.70 Estim Creat Clear Calc 74 Estimated GFR > 60 Glucose 99 POC Capillary Glucose 137 H 115 H Calcium 8.6 Magnesium 2.2 Total Bilirubin AST ALT Alkaline Phosphatase Total Protein Albumin Urine Color Urine Appearance Urine pH Ur Specific [place] Urine Protein Urine Glucose (UA) Urine Ketones Ur Blood (Man) Urine Nitrate Urine Bilirubin Urine Urobilinogen Leukocyte Esterase Rfl Urine RBC Urine WBC Ur Squamous Epith Cells Calcium Oxalate Crystal Amorphous Sediment Urine Bacteria Urine Casts Hyaline Casts Urine Mucus Group A Strep (PCR) Quality VTE Prophylaxis VTE prophylaxis: mechanical ordered
[2024-06-10 12:08] LABS: Glucose Point of Care 112 mg/dl (65-105)
--- NOTE | 2024-06-10 12:39 | WPDANESEPPF ---
Anes - Initial Pre Proc Eval Procedure: Operation Date: 06/10/24 12:30 Proposed Procedures p Esophagogastroduodenoscopy - Arjun Valentino MD Date/Time: 06/10/24 12:39 Surgeon: Meredith Wang MD Pre Op Diagnosis: Dysphagia Patient Data Age: 79 Gender: M Height: 1.78 m Weight: 78 kg Last Vital Signs Temp 36.5 C 06/10/24 04:35 Pulse 73 06/10/24 04:35 Resp 18 06/10/24 04:35 BP 118/48 L 06/10/24 04:35 Pulse Ox 96 06/10/24 08:18 O2 Del Method Room Air 06/10/24 08:18 Allergies Allergy/AdvReac Type Severity Reaction Status Date / Time carvedilol Allergy Unknown unknown Verified 06/10/24 12:37 lisinopril Allergy Unknown Swelling Verified 06/10/24 12:37 varenicline Allergy Unknown unknown Verified 06/10/24 12:37 [id number]-[id number]-[id number] Reductase AdvReac Unknown Verified 06/10/24 12:37 Inhibitor Home Medications Medication Instructions Recorded Confirmed Type aspirin 81 mg tablet,delayed 81 mg PO DAILY 11/29/21 06/09/24 History release latanoprost 0.005 % eye drops 1 drp EACH EYE QPM 11/29/21 06/09/24 History metoprolol succinate 25 mg 12.5 mg PO DAILY 11/29/21 06/09/24 History tablet,extended release 24 hr nitroglycerin 0.4 mg sublingual 0.4 mg sublingual Q5M PRN Chest 11/29/21 06/09/24 History tablet Pain pantoprazole 40 mg tablet,delayed 40 mg PO QAM 11/29/21 06/09/24 History release potassium chloride 20 mEq 20 meq PO DAILY 11/29/21 06/09/24 History tablet,extended release ticagrelor 60 mg tablet (Brilinta) 60 mg PO Q12H 11/29/21 06/09/24 History sacubitril 24 mg-valsartan 26 mg 1 tablet PO BID 09/04/22 06/09/24 History tablet (Entresto) furosemide 40 mg tablet 40 mg PO BID #180 tabs 12/18/23 06/09/24 Rx albuterol sulfate 90 mcg/actuation See Rx Instructions .Route 01/07/24 06/09/24 Rx aerosol inhaler .COMPLEX #25.5 ea metformin 500 mg tablet See Rx Instructions .Route 01/07/24 06/09/24 Rx .COMPLEX #270 tabs fluticasone 250 mcg-salmeterol 50 1 inh inhalation BID #180 ea 04/03/24 06/09/24 Rx mcg/dose blistr powdr for inhalation (Advair Diskus) glucosamine [id number] 2 tablet PO DAILY 05/19/24 06/09/24 History elise 1,500 mg-400 unit-100 mg tablet (Osteo Bi-Flex (5-Loxin)) evolocumab 140 mg/mL subcutaneous See Rx Instructions .Route .COMPLEX 06/09/24 06/09/24 History syringe (Repatha Syringe) tramadol 50 mg tablet See Rx Instructions .Route 06/09/24 06/09/24 History .COMPLEX pain Laboratory Tests 06/09/24 06/09/24 06/09/24 12:05 14:16 20:17 WBC RBC Hgb Hct MCV MCH MCHC RDW Plt Count MPV Sodium Potassium Chloride Carbon Dioxide Anion Gap BUN Creatinine Estim Creat Clear Calc Estimated GFR Glucose POC Capillary Glucose 137 H mg/dl (65-105) Calcium Magnesium Urine Color Yellow (Yellow) Urine Appearance Turbid H (Clear) Urine pH 7.0 (5.0-9.0) Ur Specific [place] 1.022 (1.001-1.035) Urine Protein Trace mg/dL (Negative) Urine Glucose (UA) Negative mg/dL (Negative) Urine Ketones Trace H mg/dL (Negative) Ur Blood (Man) Negative (Negative) Urine Nitrate Negative (Negative) Urine Bilirubin Negative (Negative) Urine Urobilinogen 1.0 mg/dL (<2.0) Leukocyte Esterase Rfl Negative BRYN/UL (Negative) Urine RBC 6-10 H /hpf (0-2) Urine WBC 0-5 /hpf (0-3) Ur Squamous Epith Cells None seen /hpf (Few) Calcium Oxalate Crystal Present /hpf (None) Amorphous Sediment Heavy H (None) Urine Bacteria None seen /hpf Urine Casts 6-10 Hyaline Casts Present /lpf (None) Urine Mucus Present /lpf Group A Strep (PCR) Not detected (Negative) 06/10/24 06/10/24 06/10/24 06:40 08:25 12:04 WBC 4.0 L K/mm3 (4.5-10.0) RBC 3.91 L M/mm3 (4.6-6.20) Hgb 10.3 L g/dL (14.0-18.0) Hct 34.7 L % (42.0-52.0) MCV 88.7 fl (80-100) MCH 26.3 pg (26-34) MCHC 29.7 L g/dl (32-36) RDW 16.7 H % (11.5-14.5) Plt Count 343 k/mm3 (150-375) MPV 9.2 fl (7.4-10.4) Sodium 140 mmol/L (137-145) Potassium 3.8 mmol/L (3.4-5.0) Chloride 104 mmol/L (98-107) Carbon Dioxide 30 mmol/L (22-30) Anion Gap 6 mmol/L (4-12) BUN 7 L D mg/dL (9-20) Creatinine 0.70 mg/dL (0.7-1.3) Estim Creat Clear Calc 74 ml/min Estimated GFR > 60 (59 - ) Glucose 99 mg/dL (65-110) POC Capillary Glucose 115 H mg/dl 112 H mg/dl (65-105) (65-105) Calcium 8.6 mg/dL (8.4-10.2) Magnesium 2.2 mg/dL (1.6-2.3) Urine Color Urine Appearance Urine pH Ur Specific [place] Urine Protein Urine Glucose (UA) Urine Ketones Ur Blood (Man) Urine Nitrate Urine Bilirubin Urine Urobilinogen Leukocyte Esterase Rfl Urine RBC Urine WBC Ur Squamous Epith Cells Calcium Oxalate Crystal Amorphous Sediment Urine Bacteria Urine Casts Hyaline Casts Urine Mucus Group A Strep (PCR) Patient hx anesthesia problems: none Family hx anesthesia problems: none Results Review: All pre-operative results and documents have been reviewed as part of the pre-operative evaluation. COUNT INCLUDES THE [facility] Past Medical History Medical History Chronic right shoulder pain Congestive heart failure Coronary artery disease Effusion of knee joint Hypertension Impingement syndrome of right shoulder Left knee DJD Lumbosacral spondylosis with radiculopathy Myocardial infarction Peptic ulcer 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 Tendinitis of right rotator cuff Type 2 diabetes mellitus Surgical History Surgical History History of coronary artery stent placement Family History Family History Other Acute myocardial infarction Breast cancer Social History Social History Social History: Surrogate medical decision maker: Alana Renee, friend. Code status: Full code. Smoking packs per day: 0.5 Smoking cigarettes per day: 10.0 Years smoked: 60 Smoking pack-years: 30.00 Smoking status: Current every day smoker Second hand tobacco smoke exposure: No Alcohol intake: never Substance use: never Substance use type: does not use Do You Feel Safe in your Home?: Yes Lack of Transportation: No Lack of Food: Never True Current Housing: Decline to Answer Concerned About Future Housing: Decline to Answer Difficulty Paying Gas/Electric Bills: Decline to Answer Difficulty Paying for Meds: Decline to Answer Currently Unemployed: Decline to Answer Education: Decline to Answer Difficulty w/ Childcare or Family Care: Decline to Answer Living arrangements: alone Additional living arrangements comments: Lives in [place]. Occupation/Education: retired Additional occupation/education comments: [employer]. Spiritual care concerns: No Agree to blood products: Yes Anes - Eval Final PreProcedure Day of Procedure 06/10/24 12:39 Patient weight: normal Heart: regular rate and rhythm Lungs: decreased breath sounds Airway: Mallampati scale class II Neurological: alert and oriented Last oral intake: >/= 8 hours ASA classification: III Emergent: no Anesthetic plan: proceed Anesthesia type and monitoring: general GIVS and standard monitoring Results Review: All pre-operative results and documents have been reviewed as part of the pre-operative evaluation. Informed Consent: The patient's anesthetic plan and its attendant risks and benefits were discussed with the patient/family/POA. Questions were solicited and answers provided to the satisfaction of the patient/family/POA.
[2024-06-10] MEDS: LACTATED RINGERS 1,000 ML 150 ML IV CONT (12:47)
[2024-06-10 12:50] LABS: Glucose Point of Care 92 mg/dl (65-105)
--- NOTE | 2024-06-10 13:21 | PM.IMHP ---
H&P: HPI History of Present Illness Date/Time: 06/10/24 13:21 Chief Complaint: Odinophagia Narrative: the patient started 4 days ago to experience difficulty swallowing associated with pain, even induced by liquids. The patient takes multiple medications, including potassium tablets. We suspect pill induced esophagitis. [facility]LY [facility] Past Medical History Medical History Chronic right shoulder pain Congestive heart failure Coronary artery disease Effusion of knee joint Hypertension Impingement syndrome of right shoulder Left knee DJD Lumbosacral spondylosis with radiculopathy Myocardial infarction Peptic ulcer 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 Tendinitis of right rotator cuff Type 2 diabetes mellitus Surgical History Surgical History History of coronary artery stent placement Family History Family History Other Acute myocardial infarction Breast cancer Social History Social History Social History: Surrogate medical decision maker: Alana Hdezor, friend. Code status: Full code. Smoking packs per day: 0.5 Smoking cigarettes per day: 10.0 Years smoked: 60 Smoking pack-years: 30.00 Smoking status: Current every day smoker Second hand tobacco smoke exposure: No Alcohol intake: never Substance use: never Substance use type: does not use Do You Feel Safe in your Home?: Yes Lack of Transportation: No Lack of Food: Never True Current Housing: Decline to Answer Concerned About Future Housing: Decline to Answer Difficulty Paying Gas/Electric Bills: Decline to Answer Difficulty Paying for Meds: Decline to Answer Currently Unemployed: Decline to Answer Education: Decline to Answer Difficulty w/ Childcare or Family Care: Decline to Answer Living arrangements: alone Additional living arrangements comments: Lives in [place]. Occupation/Education: retired Additional occupation/education comments: [employer]. Spiritual care concerns: No Agree to blood products: Yes Meds Home Medications and Allergies Home Medications Medication Instructions Recorded Confirmed Type aspirin 81 mg tablet,delayed 81 mg PO DAILY 11/29/21 06/09/24 History release latanoprost 0.005 % eye drops 1 drp EACH EYE QPM 11/29/21 06/09/24 History metoprolol succinate 25 mg 12.5 mg PO DAILY 11/29/21 06/09/24 History tablet,extended release 24 hr nitroglycerin 0.4 mg sublingual 0.4 mg sublingual Q5M PRN Chest 11/29/21 06/09/24 History tablet Pain pantoprazole 40 mg tablet,delayed 40 mg PO QAM 11/29/21 06/09/24 History release potassium chloride 20 mEq 20 meq PO DAILY 11/29/21 06/09/24 History tablet,extended release ticagrelor 60 mg tablet (Brilinta) 60 mg PO Q12H 11/29/21 06/09/24 History sacubitril 24 mg-valsartan 26 mg 1 tablet PO BID 09/04/22 06/09/24 History tablet (Entresto) furosemide 40 mg tablet 40 mg PO BID #180 tabs 12/18/23 06/09/24 Rx albuterol sulfate 90 mcg/actuation See Rx Instructions .Route 01/07/24 06/09/24 Rx aerosol inhaler .COMPLEX #25.5 ea metformin 500 mg tablet See Rx Instructions .Route 01/07/24 06/09/24 Rx .COMPLEX #270 tabs fluticasone 250 mcg-salmeterol 50 1 inh inhalation BID #180 ea 04/03/24 06/09/24 Rx mcg/dose blistr powdr for inhalation (Advair Diskus) glucosamine [id number] 2 tablet PO DAILY 05/19/24 06/09/24 History elise 1,500 mg-400 unit-100 mg tablet (Osteo Bi-Flex (5-Loxin)) evolocumab 140 mg/mL subcutaneous See Rx Instructions .Route .COMPLEX 06/09/24 06/09/24 History syringe (Repatha Syringe) tramadol 50 mg tablet See Rx Instructions .Route 06/09/24 06/09/24 History .COMPLEX pain Allergies Allergy/AdvReac Type Severity Reaction Status Date / Time carvedilol Allergy Unknown unknown Verified 06/10/24 12:37 lisinopril Allergy Unknown Swelling Verified 06/10/24 12:37 varenicline Allergy Unknown unknown Verified 06/10/24 12:37 [id number]-YBB-GzJ Reductase AdvReac Unknown Verified 06/10/24 12:37 Inhibitor Vital Signs Vital Signs - 24 hr 06/09/24 13:30 06/09/24 13:58 06/09/24 14:46 Temperature Pulse Rate 78 77 82 Respiratory Rate 24 H 24 H 20 Blood Pressure 104/64 110/69 Pulse Oximetry 98 99 98 Oxygen Delivery 06/09/24 15:16 06/09/24 18:41 06/09/24 20:11 Temperature 98.3 F Pulse Rate 75 87 Respiratory Rate 19 18 Blood Pressure 114/55 L 104/63 Pulse Oximetry 97 Oxygen Delivery Room Air 06/10/24 04:35 06/10/24 08:18 06/10/24 08:00 Temperature 97.7 F Pulse Rate 73 Respiratory Rate 18 Blood Pressure 118/48 L Pulse Oximetry 96 96 Oxygen Delivery Room Air Room Air 06/10/24 12:39 Temperature 97.4 F L Pulse Rate 69 Respiratory Rate 18 Blood Pressure 112/73 Pulse Oximetry 98 Oxygen Delivery Room Air H&P: Results Labs Labs: Short CBC 06/10/24 Range/Units 06:40 WBC 4.0 L (4.5-10.0) K/mm3 Hgb 10.3 L (14.0-18.0) g/dL Hct 34.7 L (42.0-52.0) % Plt Count 343 (150-375) k/mm3 BMP 06/10/24 06:40 Sodium 140 Potassium 3.8 Chloride 104 Carbon Dioxide 30 BUN 7 L D Creatinine 0.70 Glucose 99 Calcium 8.6 Assessment and Plan Assessment and plan (1) History of odynophagia: Code(s): Z87.898 - Personal history of other specified conditions Status: Acute Plan The patient is deemed a good candidate for the procedure. Consent signed. Will proceed.
--- NOTE | 2024-06-10 13:41 | WPDGIPROGNO ---
Progress Note: A&P Assessment and Plan (1) History of odynophagia: Code(s): Z87.898 - Personal history of other specified conditions Status: Acute (2) Pill esophagitis due to potassium chloride: Code(s): K20.80 - Other esophagitis without bleeding; T50.3X5A - Adverse effect of electrolytic, caloric and water-balance agents, initial encounter Status: Acute Assessment and Plan: The patient as confirmed pill induced esophagitis, see EGD report, confluent ulcers in the upper esophagus. It takes a few weeks to heal completely, there is no specific treatment, although sometimes liquid Sucralfate 1 gram q 6 hours could help. IN addition, he has severe nilesh esophagitis. He can start taking Fluconazole 100 mg biD for 14 days. The patient can be discharged on those 2 suggested medications and follow up in GI clinic in 4 weeks . (3) Esophageal candidiasis: Code(s): B37.81 - Candidal esophagitis Status: Acute Subjective Date/time seen: 06/10/24 13:41 Objective Data Vital Signs Vital Signs: Vital Signs - 24 hr 06/09/24 13:58 06/09/24 14:46 06/09/24 15:16 Temperature Pulse Rate 77 82 75 Respiratory Rate 24 H 20 19 Blood Pressure 110/69 114/55 L Pulse Oximetry 99 98 Oxygen Delivery 06/09/24 18:41 06/09/24 20:11 06/10/24 04:35 Temperature 98.3 F 97.7 F Pulse Rate 87 73 Respiratory Rate 18 18 Blood Pressure 104/63 118/48 L Pulse Oximetry 97 96 Oxygen Delivery Room Air 06/10/24 08:18 06/10/24 08:00 06/10/24 12:39 Temperature 97.4 F L Pulse Rate 69 Respiratory Rate 18 Blood Pressure 112/73 Pulse Oximetry 96 98 Oxygen Delivery Room Air Room Air Room Air Intake/Output Intake/Output: Intake & Output 06/07/24 06/08/24 06/09/24 06/10/24 23:59 23:59 23:59 23:59 Intake Total 1457.5 1200 Balance 1457.5 1200 Meds/Results Medications: Active Medications Generic Name Dose Route Start Last Admin Trade Name Freq PRN Reason Stop Dose Admin Albuterol 2 puff 06/09/24 23:05 Albuterol Sulfate (*Sp) Aerosol 1 Puff INHALATION Q4H PRN Shortness Of Breath Or Wheezing Dextrose 12.5 gm 06/09/24 23:03 Dextrose 50% 25 Gm/50 Ml Syringe IV PUSH PRN PRN Hypoglycemia Protocol Furosemide 40 mg 06/10/24 09:00 06/10/24 12:25 Furosemide 40 Mg Tablet PO Not Given BID [facility] Glucagon 1 mg 06/09/24 23:03 Glucagon For Inj 1 Mg Vial IM PRN PRN Hypoglycemia Protocol Glucose 15 gm 06/09/24 23:03 Glucose Oral Gel 15 Gm Of Glucse In 37.5 Gm Tube PO PRN PRN Hypoglycemia Protocol Dextrose 1,000 mls @ 100 mls/hr 06/09/24 23:03 Dextrose 5% 1,000 Ml IVPB PRN PRN Hypoglycemia Protocol Lactated Ringer's 1,000 mls @ 150 mls/hr 06/10/24 07:30 06/10/24 13:34 Lr - Lactated Ringers Iv IV CONT 150 mls/hr .[id number] [facility] Infusion Insulin Aspart 2 - 5 units 06/10/24 08:00 06/10/24 12:25 Insulin Aspart (*Bkc) 100 Units/Ml SUB-Q Not Given TIDWM [facility] Protocol Insulin Aspart 1 - 2 units 06/10/24 21:00 Insulin Aspart (*Bkc) 100 Units/Ml SUB-Q HS [facility] Protocol Latanoprost 1 drop 06/10/24 18:00 Latanoprost 0.005% Op Soln 2.5 Ml Btl EACH EYE QPM [facility] Metoprolol Succinate 12.5 mg 06/10/24 09:00 06/10/24 12:26 Metoprolol Succinate Ext Rel 12.5 Mg Tabcr PO Not Given DAILY [facility] Glucosamine-D3- 2 each 06/10/24 09:00 Boswellia Serr [ XX 06/11/24 08:59 Osteo Bi-Flex (5- DAILY [facility] Loxin)] 1,500-400- 100 M Ondansetron HCl 4 mg 06/09/24 14:20 06/09/24 23:24 Ondansetron Inj 4 Mg/2 Ml Vial IV PUSH 4 mg Q4H PRN Administration Nausea Pantoprazole Sodium 40 mg 06/10/24 09:00 06/10/24 09:36 Pantoprazole Sodium Iv 40 Mg Vial IV PUSH 40 mg Q12HR [facility] Administration Potassium Chloride 20 meq 06/10/24 08:00 06/10/24 12:25 Potassium Chloride 20 Meq Er Tablet PO Not Given DAILY@0800 [facility] Sacubitril/Valsartan 1 tab 06/09/24 23:15 06/10/24 09:36 Sacubitril/Valsartan 24-26 Mg Tablet PO 1 tab Q12HR [facility] Administration Fluticasone/Salmeterol 2 puff 06/10/24 08:00 06/10/24 08:18 Fluticasone/Salmeterol 115-21 Mcg Inhaler 1 Puff INHALATION 2 puff Q12HRT [facility] Administration Tramadol HCl 50 mg 06/09/24 23:05 06/10/24 01:09 Tramadol Hcl (*Crx) 50 Mg Tablet BY MOUTH 50 mg Q12H PRN Administration Pain Rated 4-6 Labs Labs: Laboratory Results - last 24 hr 06/09/24 06/09/24 06/10/24 14:16 20:17 06:40 WBC 4.0 L RBC 3.91 L Hgb 10.3 L Hct 34.7 L MCV 88.7 MCH 26.3 MCHC 29.7 L RDW 16.7 H Plt Count 343 MPV 9.2 Sodium 140 Potassium 3.8 Chloride 104 Carbon Dioxide 30 Anion Gap 6 BUN 7 L D Creatinine 0.70 Estim Creat Clear Calc 74 Estimated GFR > 60 Glucose 99 POC Capillary Glucose 137 H Calcium 8.6 Magnesium 2.2 Group A Strep (PCR) Not detected 06/10/24 06/10/24 06/10/24 08:25 12:04 12:48 WBC RBC Hgb Hct MCV MCH MCHC RDW Plt Count MPV Sodium Potassium Chloride Carbon Dioxide Anion Gap BUN Creatinine Estim Creat Clear Calc Estimated GFR Glucose POC Capillary Glucose 115 H 112 H 92 Calcium Magnesium Group A Strep (PCR)
--- NOTE | 2024-06-10 14:00 | PC.NURSE ---
RN assumed care
[2024-06-10 14:03] LABS: Glucose Point of Care 89 mg/dl (65-105)
--- NOTE | 2024-06-10 14:35 | PC.NURSE ---
Pt arrived from procedure
[2024-06-10] MEDS: FUROSEMIDE 40 MG TABLET PO (17:07)
[2024-06-10] MEDS: LATANOPROST 0.005% OP SOLN 2.5 ML BTL 1 DROP EACH EYE (17:08)
[2024-06-10 17:13] LABS: Glucose Point of Care 108 mg/dl (65-105)
[2024-06-10] MEDS: SUCRALFATE SUSP 100 MG/ML 10 ML UDC 1000 MG PO ×2 (18:35→20:52)
[2024-06-11 06:00] VITALS: BP 110/58; PULSE 68; RESP 20; TEMP 36.5; O2SAT 98
[2024-06-11 06:49] LABS: Glucose Point of Care 122 mg/dl (65-105)
[2024-06-11] MEDS: FLUTICASONE/SALMETEROL 115-21 MCG INHALER 1 PUFF 2 PUFF INHALATION (07:34)
[2024-06-11 07:38] VITALS: O2SAT 95
[2024-06-11 07:41] LABS: Glucose Point of Care 99 mg/dl (65-105)
--- NOTE | 2024-06-11 09:23 | P.PNIM_ITS ---
Progress Note: A&P Assessment and Plan (1) Dysphagia: Qualifiers: Dysphagia type: esophageal phase Qualified Code(s): R13.19 - Other dysphagia Code(s): R13.10 - Dysphagia, unspecified Status: Acute Assessment and Plan: Patient states he feels as if things were getting stuck in his throat for 4 days prior to admission. GI consulted. * GI consulted, recommended * EGD showed sandee esophagitis, grade 2 ulcer the proximal esophagus, hiatal hernia, biopsies taken. * Recommend fluconazole 100 mg b.i.d. for 14 days for Sandee esophagitis * Advanced diet as tolerated starting with clears (2) Epigastric burning sensation: Code(s): R10.13 - Epigastric pain Status: Acute Assessment and Plan: * GI following * Continue Protonix b.i.d. (3) Coronary artery disease: Code(s): I25.10 - Atherosclerotic heart disease of [place] coronary artery without angina pectoris Status: Acute Assessment and Plan: * Resume ASA at discharge (4) Congestive heart failure: Code(s): I50.9 - Heart failure, unspecified Status: Acute Assessment and Plan: Home meds: Entresto 24-26 q12, Metoprolol XL 12.5mg daily, Furosemide 40mg BID --Continuing home meds (5) Type 2 diabetes mellitus: Code(s): E11.9 - Type 2 diabetes mellitus without complications Status: Acute Assessment and Plan: Blood sugars ranging 89-137. Hgb A1C 6.5 Home med: Metformin, holding during admission * Accu checks AC/HS * Low dose SSI ordered * hypoglycemic protocol in place * Advancing diet as noted: Soft diet today (6) Hypertension: Code(s): I10 - Essential (primary) hypertension Status: Acute Assessment and Plan: Blood pressures controlled, 110/52-58, HR 71-75 * Currently on Lasix, Entresto, and Metoprolol Time Spent With Patient Time: Subjective Date/time seen: 06/11/24 09:23 Interval history: Afebrile, VSS Doing well, swallowing pills with minimal pain Review of Systems Review of Systems: Recent cough improved, had been coughing so hard he was having emesis. Also had joint pain that is now resolved All systems reviewed & are unremarkable except as noted in HPI and below Exam Narrative: General: In no acute distress, well nourished Head: atraumatic, no encephalopathy Eyes: EOMI, PERRLA, sclera clear ENT: moist mucous membranes, nasal passages clear Neck: supple, no JVD, no adenopathy, trachea midline Cardiac: Normal S1 and S2. No murmur, gallops or friction rubs, peripheral pulses intact. Respiratory: Lungs clear to auscultation, no adventitious lung sounds, currently on room air Gastrointestinal: soft, non-distended, non-tender, normoactive bowel sounds. : voiding without difficulty. Extremities: moves all extremities well, no edema Skin: clean, dry, intact. No wounds or lesions. Neuro: Alert and oriented x4, cranial nerves intact, no neuro deficits. Psych: normal mood, normal affect, interactive Objective Data Vital Signs Vital Signs: Vital Signs - 24 hr 06/10/24 12:39 06/10/24 13:37 06/10/24 13:47 Temperature 97.4 F L Pulse Rate 69 87 81 Respiratory Rate 18 28 H 23 H Blood Pressure 112/73 116/70 92/65 L Pulse Oximetry 98 100 100 Oxygen Delivery Room Air Room Air Room Air 06/10/24 13:57 06/10/24 15:28 06/10/24 22:00 Temperature 97.8 F Pulse Rate 77 84 Respiratory Rate 21 H 17 18 Blood Pressure 118/56 L 120/64 Pulse Oximetry 97 99 Oxygen Delivery Room Air 06/10/24 21:59 06/10/24 20:00 06/11/24 07:38 Temperature 97.9 F Pulse Rate 77 Respiratory Rate 18 Blood Pressure 110/52 L Pulse Oximetry 96 95 Oxygen Delivery Room Air Room Air 06/11/24 06:00 Temperature 97.7 F Pulse Rate 68 Respiratory Rate 20 Blood Pressure 110/58 L Pulse Oximetry 98 Oxygen Delivery Intake/Output Intake/Output: Intake & Output 06/08/24 06/09/24 06/10/24 06/11/24 23:59 23:59 23:59 23:59 Intake Total 1457.5 1670 937 Balance 1457.5 1670 937 Meds/Results Medications: Active Medications Generic Name Dose Route Start Last Admin Trade Name Freq PRN Reason Stop Dose Admin Albuterol 2 puff 06/09/24 23:05 Albuterol Sulfate (*Sp) Aerosol 1 Puff INHALATION Q4H PRN Shortness Of Breath Or Wheezing Dextrose 12.5 gm 06/09/24 23:03 Dextrose 50% 25 Gm/50 Ml Syringe IV PUSH PRN PRN Hypoglycemia Protocol Fluconazole 100 mg 06/11/24 09:00 Fluconazole 100 Mg Tablet PO 05/25/25 21:00 BID [facility] Furosemide 40 mg 06/10/24 09:00 06/10/24 17:07 Furosemide 40 Mg Tablet PO 40 mg BID [facility] Administration Glucagon 1 mg 06/09/24 23:03 Glucagon For Inj 1 Mg Vial IM PRN PRN Hypoglycemia Protocol Glucose 15 gm 06/09/24 23:03 Glucose Oral Gel 15 Gm Of Glucse In 37.5 Gm Tube PO PRN PRN Hypoglycemia Protocol Dextrose 1,000 mls @ 100 mls/hr 06/09/24 23:03 Dextrose 5% 1,000 Ml IVPB PRN PRN Hypoglycemia Protocol Insulin Aspart 2 - 5 units 06/10/24 08:00 06/10/24 17:08 Insulin Aspart (*Bkc) 100 Units/Ml SUB-Q Not Given TIDWM [facility] Protocol Insulin Aspart 1 - 2 units 06/10/24 21:00 06/10/24 20:54 Insulin Aspart (*Bkc) 100 Units/Ml SUB-Q Not Given HS [facility] Protocol Latanoprost 1 drop 06/10/24 18:00 06/10/24 17:08 Latanoprost 0.005% Op Soln 2.5 Ml Btl EACH EYE 1 drop QPM [facility] Administration Metoprolol Succinate 12.5 mg 06/10/24 09:00 06/10/24 12:26 Metoprolol Succinate Ext Rel 12.5 Mg Tabcr PO Not Given DAILY [facility] Ondansetron HCl 4 mg 06/09/24 14:20 06/09/24 23:24 Ondansetron Inj 4 Mg/2 Ml Vial IV PUSH 4 mg Q4H PRN Administration Nausea Pantoprazole Sodium 40 mg 06/10/24 09:00 06/10/24 20:51 Pantoprazole Sodium Iv 40 Mg Vial IV PUSH 40 mg Q12HR [facility] Administration Potassium Chloride 20 meq 06/10/24 08:00 06/10/24 12:25 Potassium Chloride 20 Meq Er Tablet PO Not Given DAILY@0800 [facility] Sacubitril/Valsartan 1 tab 06/09/24 23:15 06/10/24 20:51 Sacubitril/Valsartan 24-26 Mg Tablet PO 1 tab Q12HR [facility] Administration Fluticasone/Salmeterol 2 puff 06/10/24 08:00 06/11/24 07:34 Fluticasone/Salmeterol 115-21 Mcg Inhaler 1 Puff INHALATION 2 puff Q12HRT [facility] Administration Sucralfate 1,000 mg 06/10/24 17:30 06/10/24 20:52 Sucralfate Susp 100 Mg/Ml 10 Ml Udc PO 1,000 mg Q6H [facility] Administration Tramadol HCl 50 mg 06/10/24 18:08 06/10/24 20:51 Tramadol Hcl (*Crx) 50 Mg Tablet BY MOUTH 50 mg Q6H PRN Administration Pain Rated 4-6 Labs Labs: Laboratory Results - last 24 hr 06/10/24 06/10/24 06/10/24 12:04 12:48 13:59 POC Capillary Glucose 112 H 92 89 06/10/24 06/10/24 06/11/24 17:06 20:27 07:34 POC Capillary Glucose 108 H 122 H 99 Quality VTE Prophylaxis VTE prophylaxis: mechanical ordered Hospitalist MIPS Advance Care Plan I have confirmed that the patient's Advanced Care Plan is present, code status is documented, or surrogate decision maker is listed in patient medical record.: Yes Medication Reconciliation I have utilized all available resources to obtain, update and review the patients current medications (includes all prescriptions, OTC, herbals, cannabis, and nutritional supplements).: Yes
[2024-06-11] MEDS: SUCRALFATE SUSP 100 MG/ML 10 ML UDC 1000 MG PO ×2 (09:38→12:17)
[2024-06-11] MEDS: POTASSIUM CHLORIDE 20 MEQ ER TABLET PO (09:38)
[2024-06-11] MEDS: PANTOPRAZOLE SODIUM IV 40 MG VIAL IV PUSH (09:39)
[2024-06-11] MEDS: FLUCONAZOLE 100 MG TABLET PO (09:39)
[2024-06-11] MEDS: FUROSEMIDE 40 MG TABLET PO (09:39)
[2024-06-11 09:40] VITALS: PULSE 107
[2024-06-11] MEDS: METOPROLOL SUCCINATE EXT REL 12.5 MG TABCR PO (09:40)
[2024-06-11] MEDS: SACUBITRIL/VALSARTAN 24-26 MG TABLET 1 TAB PO (09:40)
[2024-06-11 11:32] LABS: Glucose Point of Care 213 mg/dl (65-105)
[2024-06-11] MEDS: INSULIN ASPART (*BKC) 100 UNITS/ML SUB-Q (12:18)
== END 2024-06-11 15:15 | disposition home or self-care (01) | DRG 381 ==
LOC: ANHED 14:20 → ANH3MED 15:27
PROVIDERS: Hospitalist; Internal Medicine Gastroenterology; Physician Assistant; Admitting Provider Internal Medicine; Emergency Provider Family Medicine; PCP Emergency Medicine; Visit Provider Nurse Practitioner Acute Care
PROC: 0DJ08ZZ Inspection of Upper Intestinal Tract, Via Natural or Artificial Opening Endoscopic (ICD-10-PCS; CPT 43235; principal; 2024-06-10 12:30)
DX: K22.10 Ulcer of esophagus without bleeding (principal); B37.81 Candidal esophagitis; K20.80 Other esophagitis without bleeding; T50.3X5A Adverse effect of electrolytic, caloric and water-balance agents, initial encounter; K27.9 Peptic ulcer, site unspecified, unspecified as acute or chronic, without hemorrhage or perforation; K44.9 Diaphragmatic hernia without obstruction or gangrene; K21.9 Gastro-esophageal reflux disease without esophagitis; I11.0 Hypertensive heart disease with heart failure; I50.9 Heart failure, unspecified; I25.10 Atherosclerotic heart disease of native coronary artery without angina pectoris; E11.9 Type 2 diabetes mellitus without complications; M75.41 Impingement syndrome of right shoulder; M17.0 Bilateral primary osteoarthritis of knee; M47.27 Other spondylosis with radiculopathy, lumbosacral region; F17.210 Nicotine dependence, cigarettes, uncomplicated; I25.2 Old myocardial infarction; Z79.82 Long term (current) use of aspirin; Z95.5 Presence of coronary angioplasty implant and graft
CPT/HCPCS: 36415; 80048; 80053; 81001; 82948; 83735; 85025; 85027; 85610; 85730; 87651; 88305; 94640; 96361; 96374; 96375; 99285; A9270; G0378; J1815; J2003; J2405; J2470; J2704; J7030; J7120

== ENCOUNTER 2024-06-23 08:15 | Outpatient (CLI) | payer MEDICARE, OTHER, SELFPAY ==
[2024-06-23 08:48] LABS: Alanine Aminotransferase 11 U/L (6-50); Albumin Level 4.2 g/dL (3.5-5.1); Alkaline Phosphatase 86 U/L (38-126); Anion Gap 8 mmol/L (4-12); Aspartate Amino Transferase 24 U/L (17-59); Bilirubin,Total 0.6 mg/dL (0.2-1.3); Blood Urea Nitrogen 19 mg/dL (9-20); Calcium 9.4 mg/dL (8.4-10.2); Carbon Dioxide 31 mmol/L (22-30); Chloride 100 mmol/L (98-107); Cholesterol 118 mg/dL (0-200); Estimated Glomerular Filt Rate > 60; Glucose 128 mg/dL (65-110); HDL Direct 53 mg/dL; Potassium 4.1 mmol/L (3.4-5.0); Sodium 139 mmol/L (137-145); Triglycerides 82 mg/dL (<150)
[2024-06-23 08:59] LABS: LDL Cholesterol Direct 42 mg/dL
[2024-06-23 09:04] LABS: Vitamin D 25 Hydroxy 37.8 ng/mL
[2024-06-23 09:19] LABS: Creatinine Urine 48.3 mg/dL
[2024-06-23 09:24] LABS: MALB Creatinine Ratio 12.6 mg/g (0-30); Microalbumin Urine Random 6.1 mg/L (0-16.7)
[2024-06-23 09:29] LABS: Hemoglobin A1C 6.3 % (<5.7)
== END 2024-06-23 08:16 | disposition home or self-care (01) ==
LOC: ANHLAB 08:17
PROVIDERS: PCP Emergency Medicine; Visit Provider Emergency Medicine
DX: E55.9 Vitamin D deficiency, unspecified (principal); E11.9 Type 2 diabetes mellitus without complications; E78.5 Hyperlipidemia, unspecified
CPT/HCPCS: 36415; 80053; 80061; 82043; 82306; 83036

== ENCOUNTER 2024-07-17 10:28 | Outpatient (CLI) | payer MEDICARE, OTHER, SELFPAY ==
[2024-07-17 11:16] LABS: Anion Gap 6 mmol/L (4-12); Blood Urea Nitrogen 15 mg/dL (9-20); Carbon Dioxide 29 mmol/L (22-30); Chloride 102 mmol/L (98-107); Estimated Glomerular Filt Rate > 60; Glucose 135 mg/dL (65-110); Potassium 3.7 mmol/L (3.4-5.0); Sodium 137 mmol/L (137-145)
== END 2024-07-17 10:29 | disposition home or self-care (01) ==
PROVIDERS: PCP Emergency Medicine; Visit Provider Nurse Practitioner Adult Health
DX: I50.22 Chronic systolic (congestive) heart failure (principal); I95.2 Hypotension due to drugs; I25.10 Atherosclerotic heart disease of native coronary artery without angina pectoris; I49.3 Ventricular premature depolarization
CPT/HCPCS: 36415; 80048

== ENCOUNTER 2024-12-08 09:36 | Inpatient (IN) | payer MEDICARE, OTHER, SELFPAY ==
[2024-12-08] VITALS (30 sets, daily range): BP systolic 81–101; BP diastolic 48–85; PULSE 70–92; RESP 14–28; TEMP 36.1–36.4; O2SAT 96–100; BMI 26.6
--- NOTE | 2024-12-08 | ECHO_ITS ---
Patient Info Name: Phill Monae Age: 79 years : 1945 Gender: Male Ht: 68 in Wt: 175 lbs BSA: 1.97 m2 HR: 77 bpm BP: 82 / 62 mmHg Heart Rhythm: Sinus Rhythm Technical Quality: Poor Exam Date: 12/08/2024 3:36 PM Exam Location: Echo Lab Patient Status: Outpatient Admit Date: 12/08/2024 Staff Ordering Physician: Nora Mathew APRN Criminal Investigator: Liz Santana RDCS Attending Provider: Meredith Wang MD Referring Physician: Quincy JOHNSON; Exam Type: CA echo doppler color flow Study Info Indications - chf Complete two-dimensional, color flow and Doppler transthoracic echocardiogram is performed. Summary 1. Complete two-dimensional, color flow and Doppler transthoracic echocardiogram is performed. 2. Technically suboptimal study due to poor sonographic images. 3. Only subcostal and apical images obtained. 4. Left ventricular systolic function is severely globally reduced, estimated at <15%. 5. Left ventricular chamber dimension is severely enlarged. 6. The left ventricular diastolic function is abnormal. 7. E/e' 17 is elevated. 8. Left atrial chamber dimension is mildly enlarged. 9. There is moderate aortic valve sclerosis. 10. There is mild mitral valve regurgitation. 11. No pulmonary hypertension, estimated pulmonary arterial systolic pressure is 23 mmHg. Left Ventricle Only subcostal and apical images obtained. Technically suboptimal study due to poor sonographic images. Left ventricular systolic function is severely globally reduced, estimated at <15%. E/e' 17 is elevated. Left ventricular chamber dimension is severely enlarged. The left ventricular diastolic function is abnormal. Right Ventricle Right ventricular systolic function is normal and with normal TAPSE 2.1 cm. Right ventricular chamber dimension is normal. Left Atria Left atrial chamber dimension is mildly enlarged. Right Atria Right atrial chamber dimension is normal. Aortic Valve The aortic valve is trileaflet. There is moderate aortic valve sclerosis. There is no aortic valve stenosis. There is no aortic valve regurgitation. Pulmonic Valve The pulmonic valve is not well visualized. Mitral Valve There is no mitral valve stenosis. There is mild mitral valve regurgitation. Tricuspid Valve There is no tricuspid valve regurgitation. No pulmonary hypertension, estimated pulmonary arterial systolic pressure is 23 mmHg. Pericardium/Pleural There is no pericardial effusion. Inferior Vena Cava Normal inferior vena cava with >50% collapse upon inspiration consistent with normal right atrial pressure, 5 mmHg. Aorta The aortic root size at the sinus of Valsalva is not well visualized. Left Ventricular Outflow Tract Name Value Normal LVOT 2D LVOT Diameter 2.0 cm LVOT Doppler LVOT Peak Gradient 2 mmHg LVOT Mean Gradient 1 mmHg LVOT VTI 13 cm LVOT VTI/AV VTI Ratio 0.5 LVOT Stroke Volume 42 ml LVOT CO 3.0 l/min LVOT CI 1.5 l/min/m2 Pulmonic Valve Name Value Normal RVOT Doppler RVOT Peak Gradient 2 mmHg PV Doppler PV Peak Gradient 4 mmHg Mitral Valve Name Value Normal MV Doppler MV Decel Navarro 315 cm/s2 MV PHT 70 ms MV Area (PHT) 3.1 cm2 4.0-5.0 MV Diastolic Function MV E Peak Velocity 76 cm/s MV A Peak Velocity 121 cm/s MV E/A 0.6 MV Decel Time 243 ms MV Annular TDI MV E/e' (Septal) 22.7 <=8.0 MV E/e' (Lateral) 14.5 <=8.0 MV E/e' (Average) 18.6 Tricuspid Valve Name Value Normal TV Regurgitation Doppler TR Peak Velocity 215 cm/s TR Peak Gradient 18 mmHg Estimated PAP/RSVP RA Pressure 5 mmHg <=5 PA Systolic Pressure 23 mmHg <36 RV Systolic Pressure 23 mmHg <36 Aorta Name Value Normal Ascending Aorta Ao Root Diameter (MM) 3.3 cm Ao Root Diam Index (MM) 1.7 cm/m2 Aortic Valve Name Value Normal AV Doppler AV Peak Velocity 136 cm/s AV Peak Gradient 7 mmHg AV Mean Gradient 4 mmHg AV VTI 26 cm AV Area (Cont Eq VTI) 1.6 cm2 >=3.0 AV Area (Cont Eq Dickson) 1.8 cm2 AV Regurgitation 2D LVOT Area 3.1 cm2 Ventricles Name Value Normal LV Dimensions 2D/MM IVS Diastolic Thickness (2D) 0.7 cm 0.6-1.0 LVID Diastole (2D) 7.2 cm 4.2-5.8 LVIW Diastolic Thickness (2D) 0.7 cm 0.6-1.0 LVID Systole (2D) 6.4 cm 2.5-4.0 LVOT Diameter 2.0 cm LV Mass (2D Cubed) 236.62 g 88.00-224.00 LV Mass Index (2D Cubed) 120 g/m2 49-115 Relative Wall Thickness (2D) 0.20 LV Fractional Shortening/Ejection Fraction 2D/MM LV Fractional Shortening (2D) 11 % 25-43 LV EF (2D Teicholz) 24 % 52-72 LV Diastolic Volume (4C MOD) 159 ml LV EF (4C MOD) 15 % LV Diastolic Volume (2C MOD) 230 ml LV EF (2C MOD) 13 % LV Diastolic Volume (BP MOD) 202 ml 62-150 LV Diastolic Volume Index (BP MOD) 103 ml/m2 34-74 LV Systolic Volume (BP MOD) 173 ml 21-61 LV Systolic Volume Index (BP MOD) 88 ml/m2 11-31 LV EF (BP MOD) 14 % 52-72 LV Diastolic Length (4C) 9.3 cm LV Systolic Length (4C) 8.6 cm LV Stroke Volume (4C MOD) 24 ml Atria Name Value Normal LA Dimensions LA Dimension (MM) 4.5 cm 3.0-4.1 LA Volume (4C A-L) 68 ml LA Volume (BP A-L) 56 ml RA Dimensions RA Area (4C) 13.3 cm2 <=18.0 Report Signatures
--- NOTE | ~2024-12-08 | XR_ITS ---
EXAMINATION: XR chest 2V 12/08/2024 10:53 INDICATION: Shortness of breath PROCEDURE: 2 view chest COMPARISON: Comparison to multiple prior studies sequentially, with oldest reviewed study dated 08/27. FINDINGS: The lungs are clear. The cardiomediastinal silhouette is within normal limits. There are no pleural effusions. There is no pneumothorax suspected. There are scattered calcified granulomas. The lungs are hyperinflated which is consistent with, but not diagnostic of chronic obstructive pulm onary disease. IMPRESSION: 1: NO ACUTE CARDIOPULMONARY DISEASE. Reviewed, dictated and finalized at location A.
--- NOTE | ~2024-12-08 | US_ITS ---
Abdominal Sonogram: Real-time sonographic imaging of the abdomen was performed. Clinical History: Leukopenia, anemia, evaluate for splenomegaly Findings: The liver appears normal with no evidence of mass lesion or bile duct dilatation. Main por juan vein demonstrates normal direction of flow. The spleen is upper lobes is normal in size, measurin g 13.5 cm in length. The gallbladder is well distended, and and contains gallbladder sludge. The com mon bile duct measures 3 mm. The visualized pancreas, aorta, and IVC are unremarkable. The right ki dney measures 13.0 cm in length and the left kidney measures 11.6 cm. There is no hydronephrosis. 11 mm nonobstructing left renal stone present. Impression: Spleen is upper limits of normal in size. 11 mm nonobstructing left renal stone. Gallbladder sludge. Reviewed, dictated and finalized at [facility]. Impression: Spleen is upper limits of normal in size. 11 mm nonobstructing left renal stone. Gallbladder sludge.
--- NOTE | 2024-12-08 09:39 | ECG_ITS ---
Test Date: 2024-12-08 09:45:17 Measurements Intervals [place] Rate: 92 P: 15 RI: 113 QRS: -56 QRSD: 143 T: 89 QT: 342 QTc: 423 Interpretive Statements SINUS RHYTHM WITH SHORT RI INTERVAL WITH OCCASIONAL SUPRAVENTRICULAR PREMATURE COMPLEXES LEFT AXIS DEVIATION INTRAVENTRICULAR CONDUCTION DELAY CANNOT R/O SEPTAL INFARCT, AGE INDETERMINATE BORDERLINE ST-T WAVE ABNORMALITY- ANTEROLAT/HIGH LAT LEADS BASELINE ARTIFACT- II, III, AVR, AVL, AVF, V1-V6 ABNORMAL ECG No previous ECG available for comparison Electronically Signed On 12-08-2024 09:54:16 CDT by Uche Vidal D.O.
[2024-12-08 10:06] LABS: Hematocrit 32.4 % (42.0-52.0); Hemoglobin 9.6 g/dL (14.0-18.0); Immature Granulocyte Absolute 0.02 K/mm3 (0.00-0.031); Lymphocytes Percent Auto 25.4 % (18.3-44.2); Mean Corpuscular HGB Conc 29.6 g/dl (32-36); Mean Corpuscular Hemoglobin 24.1 pg (26-34); Mean Corpuscular Volume 81.4 fl (80-100); Monocytes Absolute Auto 0.1 K/mm3 (0.1-0.6); Monocytes Percent Auto 7.1 % (2.6-8.5); Neutrophils Absolute Auto 1.3 K/mm3 (1.3-6.7); Neutrophils Percent Auto 66.5 % (45.5-73.1); Platelet Count Result 417 k/mm3 (150-375); Red Blood Count 3.98 M/mm3 (4.6-6.20); Red Cell Distribution Width 17.5 % (11.5-14.5)
[2024-12-08] MEDS: SODIUM CHLORIDE 0.9% IV 1,000 ML 999 ML IV CONT (10:14)
[2024-12-08 10:16] LABS: Anisocytosis 1+; Hypochromasia 1+; Platelet Estimate Slightly Increased (Adequate)
[2024-12-08 10:17] LABS: Schistocytes None Seen
[2024-12-08 10:20] LABS: Alanine Aminotransferase 15 U/L (6-50); Albumin Level 3.9 g/dL (3.5-5.1); Alkaline Phosphatase 127 U/L (38-126); Anion Gap 15 mmol/L (4-12); Aspartate Amino Transferase 30 U/L (17-59); Bilirubin,Total 0.7 mg/dL (0.2-1.3); Blood Urea Nitrogen 38 mg/dL (9-20); Calcium 9.5 mg/dL (8.4-10.2); Carbon Dioxide 22 mmol/L (22-30); Chloride 100 mmol/L (98-107); Estimated CRCL calculation 51 ml/min; Estimated Glomerular Filt Rate > 60; Glucose 139 mg/dL (65-110); Potassium 4.2 mmol/L (3.4-5.0); Sodium 137 mmol/L (137-145)
[2024-12-08 10:29] LABS: NT Pro B Type Natriuretic Pept 5440 pg/mL (19.9-100)
--- OUTSIDE RECORDS SUMMARY | 2024-12-08 10:33 | XMS_ITS | Clinical Summary ---
Author Organization [facility] Address [address] [place] [address] Phone Care Team Providers Care Door Worker Name Role Phone Martin Vance MD Primary Care Provider [phone] Allergies No known active allergies Medications PROAIR HFA 108 (90 BASE) MCG/ACT Aerosol Solution INHALE 1 TO 2 PUFFS BY MOUTH EVERY 4 HOURS NEEDED 0 6 Active atorvastatin (LIPITOR) 40 MG Tablet Take 40 mg by mouth daily. 3 6 Active BRILINTA 90 MG Tablet TAKE 1 TABLET BY MOUTH TWICE A DAY 4 6 Active hydroCHLOROthiazide 25 MG Tablet Take 25 mg by mouth daily. 0 6 Active latanoprost (XALATAN) 0.005 % Solution 6 Active metoprolol Succinate (TOPROL-XL) 25 MG TABLET SR 24 HR TAKE 1/2 TABLET BY MOUTH ONCE DAILY FOR HEART 0 6 Active VYTORIN 10-20 MG Tablet TAKE 1 TABLET BY MOUTH AT BEDTIME 0 6 Active furosemide (LASIX) 40 MG Tablet 6 Active lisinopril (PRINIVIL, ZESTRIL) 40 MG Tablet Take 40 mg by mouth daily. 1 6 Active loratadine (CLARITIN) 10 MG Tablet TAKE 1 TABLET BY MOUTH EVERY DAY FOR LIP SWELLING AND HIVES 2 6 Active aspirin 81 MG Chewable Tablet Take 81 mg by mouth daily. Active Multiple Vitamin (MULTI-VITAMIN PO) Take by mouth. Active Misc Natural Products (OSTEO BI-FLEX ADV DOUBLE ST PO) Take by mouth. Active predniSONE (DELTASONE) 20 MG TabletIndications:A khts-jvycu-nazxbmil a, initial encounter Take three tablets when needed and then call Dr. Alegre 15 Tab 0 6 Active Levocetirizine Dihydrochloride (XYZAL) 5 MG Tablet Take 1 Tab by mouth daily. 90 Tab 0 6 Active Active Problems Problem Noted Date Diagnosed Date [id number] 03/23/2016 Social History Tobacco Use Types Packs/Day Years Used Date Smoking Tobacco: Former Cigarettes Q uit: 02/21/2016 Alcohol Use Standard Drinks/Week Comments No 0 (1 standard drink = 0.6 oz pur e alcohol) Sex and Gender Information Value Date Recorded Sex Assigned at Not on file Legal Sex Male 9:33 AM CDT Gender Identity Not on file Sexual Orientation Not on file Last Filed Vital Signs Vital Sign Reading Time Taken Comments Blood Pressure 140/72 03/23/2016 11:17 AM CDT Pulse - - Temperature - - Respiratory Rate - - Oxygen Saturation - - Inhaled Oxygen Concentration - - Weight 105 kg (231 lb 6.4 oz) 03/23/2016 11:17 A M CDT Height 181.6 cm (5' 11.5 ) 03/23/2016 11:17 AM C DT Body Mass Index 31.82 03/23/2016 11:17 AM CDT Plan of Treatment Health Maintenance Due Date Last Done Comments Hepatitis C Virus (HCV) Screening 1945 TdaP Immunization 1945 Pneumococcal Immunization (5 0+ years) (1 of 1 - PCV) 1993 Zoster Immunization (1 of 2) 1993 Respiratory Syncytial Virus (RSV) Immunization (Adult) (1 - 1-dose 75+ series) 2018 Influenza Immunization (#1) 2024 SARS-COV-2 Immunization ( - 2023- season) 2024 Hepatitis B Immunization Aged Out No longer eligible based on patient's age to complete this topic Meningococcal Immunization (ACWY) Aged Out No longer eligible based on patient's age to complete this topic Rotavirus Immunization Aged Out No lo nger eligible based on patient's age to complete this topic Insurance MEDICARE XXXCOVENTRY-AETNA Care Teams Door Worker Relationship Specialty Start Date End Date Martin Vance MD PCP - General Family Medicine 03/23/16
--- OUTSIDE RECORDS SUMMARY | 2024-12-08 10:33 | XMS_ITS | Clinical Summary ---
Author Organization [facility] Address [facility] [place] [address] Care Team Providers Care Candles Pourer Name Role Phone Ebenezer Magallanes MD Unavailable [phone] Ian Jaeger MD Primary Care Provider [phone] Allergies Active Allergy Reactions Criticality Noted Date Comments Lisinopril Unknown 05/02/2016 Medications PROAIR HFA 108 (90 BASE) MCG/ACT inhaler Inhale 2 puffs into the lungs every 4 (four) hours as needed for Shortness of breath or Wheezing. 0 6 Active latanoprost 0.005 % ophthalmic solution Place 1 drop into both eyes nightly at bedtime. 3 6 Active aspirin EC (ECOTRIN) 81 MG tablet Take 81 mg by mouth daily. Active SYMBICORT 160-4.5 MCG/ACT inhaler Inhale 2 puffs into the lungs 2 (two) times daily. 9 Active metFORMIN 500 MG tablet Take 500-1,000 mg by mouth see administration instructions. Takes 2 tablet (1000 mg) in AM and 1 tablet (500 mg) in PM 0 9 Active metoprolol succinate ER 25 MG 24 hr tablet Take 25 mg by mouth daily. 3 9 Active pantoprazole EC 40 MG tablet Take 40 mg by mouth daily. 11 9 Active potassium chloride CR 20 MEQ Tab CR tablet Take 20 mEq by mouth daily. 3 9 Active ENTRESTO 24-26 MG tablet Take 1 tablet by mouth 2 (two) times daily. 3 9 Active BRILINTA 60 MG tablet Take 60 mg by mouth 2 (two) times daily. 2 Active furosemide (LASIX) 40 MG tablet Take 1 mg by mouth 2 (two) times daily. 2 Active PRALUENT 75 MG/ML injection (PEN) Inject 75 mg into the skin every 14 (fourteen) days. Injects every other Wednesdays 2 Active Active Problems Problem Noted Date Diagnosed Date Acute GI bleeding 08/12/2022 PVC (premature ventricular contraction) 06/15/20 Overview (08/12/2022): Added automatically from request for surgery [id number] Bradycardia 02/26/2020 Ventricular bigeminy 02/26/2020 Gastroesophageal reflux disease 03/25/2019 Bone lesion 04/01/2018 Chronic systolic heart failure ([facility]) 05/29/2016 Overview (08/12/2022): Chronic systolic (congestive) heart failure Coronary artery disease of n ative artery of [place] heart with stable angina pectoris 05/29/2016 Overview (08/12/2022): Coronary artery disease involving [place] coronary artery of [place] heart without angina pectoris Obstructive sleep apnea syndrome 05/29/2016 Overview (08/12/2022): Obstructive sleep apnea Cardiomyopathy ([facility]) 04/26/2016 Overview (08/12/2022): Cardiomyopathy Dyspnea on exertion 04/26/2016 Overview (08/12/2022): Dyspnea on effort Shlpi-ebdgj-lurevhgon 03/23/2016 Hypertension associated with diabetes ([facility]) 05/18/2013 Overview (08/12/2022): Essential hypertension Diabetes mellitus ([facility]) 05/18/2013 Hyperlipidemia 05/18/2013 Overview (08/12/2022): Hyperlipidemia LDL goal <70 Restless legs syndrome 05/18/2013 Umbilical hernia 05/18/2013 (aortic stenosis) S/P drug eluting coronary stent placement Dyslipidemia Resolved Problems Problem Noted Date Diagnosed Date Resolved Date Preoperative cardiovascular examination 02/26/2020 08/13/2022 Social History Tobacco Use Types Packs/Day Years Used Date Smoking Tobacco: Never Smokeless Tobacco: Never Tobacco Cessation:Counseling Given: Not Answered Humiliation, Afraid, Rape, and Kick questionnair e Answer Date Recorded Within the last year, have y ou been afraid of your partner or ex-partner? No 08/12/2022 Within the last year, have y ou been humiliated or emotionally abused in other ways by your partner or ex-partner? No Within the last year, have y ou been kicked, hit, slapped, or otherwise physically hurt by your partner or ex-partner? No 08/12/2022 Within the last year, have y ou been raped or forced to have any kind of sexual activity by your partner or ex-partner? No 08/12/2022 Overall Financial Resource Strain (CARDIA) Answe r Date Recorded How hard is it for you to pa y for the very basics like food, housing, medical care, and heating? Not hard at all 08/12/2022 Hunger Vital Sign Answer Date Recorded Within the past 12 months, y ou worried that your food would run out before you got the money to buy more. Never true 08/12/19 23 Within the past 12 months, t he food you bought just didn't last and you didn't have money to get more. Never true 08/12/2022 PRAPARE - Transportation Answer Date Re corded In the past 12 months, has l ack of transportation kept you from medical appointments or from getting medications? No 08/2022 In the past 12 months, has l ack of transportation kept you from meetings, work, or from getting things needed for daily living? No 08/12/2022 Housing Stability Vital Sign Answer Edin e Recorded In the last 12 months, was t here a time when you were not able to pay the mortgage or rent on time? No 08/12/2022 In the last 12 months, how many places have you lived? 1 08/12/2022 In the last 12 months, was t here a time when you did not have a steady place to sleep or slept in a fpc (including now)? No 08/12/2022 Sex and Gender Information Value Date Recorded Sex Assigned at Not on file Legal Sex Male 8:36 PM CDT Gender Identity Not on file Sexual Orientation Not on file Last Filed Vital Signs Vital Sign Reading Time Taken Comments Blood Pressure 110/53 08/14/2022 11:18 AM MARKER DELIVERY Pulse 78 08/14/2022 11:18 AM MARKER DELIVERY Temperature 36.9 C (98.4 F) 08/14/2022 11:18 AM MARKER DELIVERY Respiratory Rate 16 08/14/2022 11:18 AM MARKER DELIVERY Oxygen Saturation 100% 08/14/2022 11:18 AM MARKER DELIVERY Inhaled Oxygen Concentration - - Weight 82 kg (180 lb 12.4 oz) 08/14/2022 3:28 AM MARKER DELIVERY Height 177.8 cm (5' 10 ) 08/12/2022 8:19 AM MARKER DELIVERY Body Mass Index 25.94 08/12/2022 8:19 AM MARKER DELIVERY Plan of Treatment Health Maintenance Due Date Last Done Comments ASCVD Statin 1943 Kidney Health Evaluation 1945 Diabetes: Retinopathy Eye Exam 1961 DTaP, Tdap and Td Vaccines ( 1 - Tdap) 1962 Zoster Vaccines (1 of 2) 1993 Annual Medicare Wellness Visit 2008 RSV Immunization or 60+ Years (1 - 1-dose 75+ series) 2018 ASCVD LDL 04/02/2020 04/02/2019, 02/28/2016 Lipid Panel 04/02/2020 04/02/2019 Hemoglobin A1C 02/09/2023 08/12/2022 COVID-19 Vaccine (4 - 2023-2 5 season) 2024 12/21/2021, 05/13/2021, 10/09/2020 Pneumococcal Vaccine: 50+ Years Completed 06/21/2019, 05/14/2016, 06/07/2015 Meningococcal B Vaccine Aged Out No l onger eligible based on patient's age to complete this topic Meningococcal Vaccine Aged Out No domenico jerrod eligible based on patient's age to complete this topic RSV Immunizations Under 20 Months Aged Out No longer eligible b ased on patient's age to complete this topic Goals Goal Patient Goal Type Associated Problems Recent Progress Patient-Stated? Author Health - patient able to perform ADLs independently Lifestyle Brandon Sánchez RN Medical Devices Implanted Type Area Ict Security Specialist Device Identifier Shelf Expiration Date Model / Serial / Lot Clip Resolution 2.8mm 360 235cm 11mm Open - [id number] Implanted:Qty : 1 on 08/13/2022 by Landon Nickerson MD at [facility] Clip Implant N/A: Abdomen Mass Mosaic [id number] 02/21/2025 [id number] / / [id number] Description:JE junction Procedures Procedure Name Priority Date/Time Associated Diagnosis Comments HEMOGLOBIN, GLYCOSYLATED Routine 08/12/2022 8:40 AM MARKER DELIVERY LIPID PANEL Routine 04/02/2019 from Last 3 Months or Most Recently Relevant to Health Maintenance Results * (ABNORMAL) HEMOGLOBIN, GLYCOSYLATED (08/12/2022 8:40 AM MARKER DELIVERY) HGB A1C 7.2(H) <5.7 % 08/12/2022 1:45 PM MARKER DELIVERY [facility] Comment: ADA GUIDELINES 2010 5.7 TO 6.4% INCREASED RISK OF DIABETES > OR = 6.5% CONSISTENT WITH DIABETES ESTIMATED AVG GLUCOSE 160 mg/dL 08/12/2022 1:45 PM MARKER DELIVERY [facility] 08/12/2022 8:40 AM MARKER DELIVERY us [facility] Final Result [facility] [address] [place] [address], * (ABNORMAL) LIPID PANEL (04/02/2019) CHOLESTEROL 173 100 - 199 HDL 55 >=39 TRIGLYCERIDES 84 0 - 149 LDL (CALCULATED) 101(A) 0 - 99 VLDL CALCULATION 17 5 - 40 04/02/2019 us Doc [facility] Final Result from Last 3 Months or Most Recently Relevant to Health Maintenance Insurance MEDICARE AET MEDICARE AETNA Advance Directives * Full Code (Latest Code Status on File) Date Activated Date Inactivated Comments 08/12/2022 3:43 PM 08/14/2022 6:12 PM Care Teams Candles Pourer Relationship Specialty Start Date End Date Ian Jaeger MD [address] [address] PCP - General INTERNAL MEDICINE 08/12/22 Ebenezer Magallanes MD [address] [place] [id number] [facility] [employer] [facility] CARDIOVASCULAR DISEASE 05/19/19
--- OUTSIDE RECORDS SUMMARY | 2024-12-08 10:34 | XMS_ITS | Encounter Summary ---
Author Organization [facility] Address [address] [facility] [address] [place] [address] Care Team Providers Care Return To Service Inspector Name Role Phone No, Physician Primary Care Provider [phone] Rinku Glover MD Primary Care Provider [phone] Ian Jaeger MD Primary Care Provide r Encounter Details Date Type Department Care Team (Late st Contact Info) Description 08/23/2016 Orders Only [facility] ProviderAyala MD [address] [place] [id number] Social History Tobacco Use Types Packs/Day Years Used Date Smoking Tobacco: Former Alcohol Use Standard Drinks/Week Comments No 0 (1 standard drink = 0.6 oz pur e alcohol) Sex and Gender Information Value Date Recorded Sex Assigned at Not on file Legal Sex Male 4:13 AM PHARMACY TECHNICIAN ASSISTANT Gender Identity Not on file Sexual Orientation Not on file documented as of this encounter Plan of Treatment Not on file documented as of this encounter Procedures Procedure Name Priority Date/Time Associated Diagnosis Comments CARDIOLOGY REPORT 08/23/2016 documented in this encounter Results * CARDIOLOGY REPORT (08/23/2016) Anatomical Region Laterality Modality Other Narrative 08/23/2016 Ordered by an unspecified provider. Historical Provider [facility] JOSE BERGER Final Result documented in this encounter Visit Diagnoses Not on filedocumented in this encounter Care Teams Return To Service Inspector Relationship Specialty Start Date End Date No, Physician PCP - General 04/03/17 06/09/17 Rinku Glover MD [address] [place] [address] PCP - General Internal Medicine 06/10/17 08/16/22 Ian Jaeger MD [address] [place] [address] PCP - General Emergency Medicine 08/17/22 documented as of this encounter
--- OUTSIDE RECORDS SUMMARY | 2024-12-08 10:34 | XMS_ITS | Clinical Summary ---
Author Organization [facility] [address] Address [address] [place] [address] Care Team Providers Care Enameler Name Role Phone Ian Jaeger MD Primary Care Provide r Allergies Active Allergy Reactions Criticality Noted Date Comments Carvedilol Anaphylaxis High Lisinopril Anaphylaxis,Unknown High 05/02/2016 Varenicline Unknown Medications glucosamine-D3- Boswellia serr (OSTEO BI-FLEX, 5-LOXIN,) 1,500-400-100 mg-unit-mg tablet 0 0 6 Active albuterol HFA (PROAIR HFA) 90 mcg/actuation inhaler inhale 2 puff by inhalation route every 4 - 6 hours as needed 0 Inhaler 0 6 Active aspirin (ASPIR-81) 81 mg tablet take 1 Tablet by oral route every day 0 0 6 Active latanoprost (XALATAN) 0.005 % ophthalmic solution instill 1 drop by ophthalmic route every day into affected eye(s) in the evening 0 0 6 Active metFORMIN (GLUCOPHAGE) 500 mg tablet take 1 tablet by oral route 2 times every day 0 0 7 Active oxygenIndicatio ns:Dyspnea Administer 2 L/min into each nostril as needed. Active traMADol (ULTRAM) 50 mg tablet Take 1 tablet (50 mg total) by mouth every 8 (eight) hours as needed 9 Active OneTouch Ultra Blue Test Strip strip USE 1 STRIP VIA METER THREE TIMES A DAY 0 Active nitroglycerin (NITROSTAT) 0.4 mg SL tabletIndicatio ns:Coronary artery disease involving [place] coronary artery of [place] heart without angina pectoris Place 1 tablet (0.4 mg total) under the tongue every 5 (five) minutes as needed for chest pain 25 tablet 11 1 Active alirocumab (Praluent Pen) 75 mg/mL pen injector Inject 75 mg as directed every 14 (fourteen) days 6 mL 3 2 Active furosemide (LASIX) 40 mg tablet TAKE 1 TABLET BY MOUTH TWICE A DAY 180 tablet 2 3 Active Additional Information Patient taking differently: 40 mg oral 3 times daily, Reported on 10/19/2024 loratadine (Claritin) 10 mg tablet Take 1 tablet (10 mg total) by mouth daily Active metoprolol XL (TOPROL-XL) 25 mg extended release tablet TAKE 1 TABLET BY MOUTH EVERY DAY 90 tablet 2 4 Active fluticasone propion-salmete roL (ADVAIR DISKUS) 250-50 mcg/dose diskus inhaler Inhale 1 puff 2 (two) times a day 4 Active Brilinta 60 mg tabletIndicatio ns:Coronary artery disease of [place] artery of [place] heart with stable angina pectoris TAKE 1 TABLET BY MOUTH TWICE A DAY 180 tablet 2 4 Active potassium chloride ER 20 mEq CR tablet TAKE 1 TABLET BY MOUTH EVERY DAY WITH FOOD 90 tablet [address] (PROTONIX) 40 mg EC tabletIndicatio ns:Gastroesopha geal reflux disease TAKE 1 TABLET BY MOUTH EVERY DAY 90 tablet 2 5 Active sacubitriL-vals kasie (Entresto) 24-26 mg tablet TAKE 1 TABLET BY MOUTH TWICE A DAY 180 tablet 2 5 Active evolocumab (Repatha Syringe) syringe syringe INJECT 1 ML (140 MG TOTAL) UNDER THE SKIN EVERY 14 DAYS. 2 mL 3 5 Active Active Problems Problem Noted Date Diagnosed Date PVC (premature ventricular contraction) 06/15/20 20 Overview (06/15/2020): Added automatically from request for surgery [id number] Preoperative cardiovascular examination 02/26/20 20 Bradycardia 02/26/2020 Ventricular bigeminy 02/26/2020 Gastroesophageal reflux disease 03/25/2019 Bone lesion 04/01/2018 Hyperlipidemia associated with type 2 diabetes m ellitus 06/10/2017 Hypertension associated with diabetes 06/10/2017 Coronary artery disease of n ative artery of [place] heart with stable angina pectoris 05/29/2016 Overview (11/15/2016): Coronary artery disease involving [place] coronary artery of [place] heart without angina pectoris Chronic systolic heart failure 05/29/2016 Overview (11/15/2016): Chronic systolic (congestive) heart failure Obstructive sleep apnea syndrome 05/29/2016 Overview (11/15/2016): Obstructive sleep apnea Hyperlipidemia LDL goal <70 04/26/2016 Overview (11/14/2016): Hyperlipidemia LDL goal <70 Dyspnea on exertion 04/26/2016 Overview (11/14/2016): Dyspnea on effort Cardiomyopathy 04/26/2016 Overview (11/15/2016): Cardiomyopathy Essential hypertension 04/26/2016 Overview (11/15/2016): Essential hypertension Encounters Date Type Department Care Team Description 11/20/2024 Telephone [facility] [address] [place] [address] Jaime Pratt MD 10/19/2024 10:45 AM CDT Office Visit [facility] [address] [place] [address] Jaime Pratt MD Coronary artery disease of [place] artery of [place] heart with stable angina pectoris (Primary Dx); Chronic systolic heart failure (HCC); Hyperlipidemia associated with type 2 diabetes mellitus (HCC); Ventricular bigeminy; Hypertension associated with diabetes (HCC) from Last 3 Months Immunizations Immunization Administration Dates Next Due Influenza, Unspecified 05/12/2020 Surgical History Surgery Date Site/Laterality Comments CARDIAC CATHETERIZATION 08/12/2016 - 08/11/2017 Prox LAD stent, later attempt to reaccess was unsuccessful 2017 Medical History Medical History Date Comments Hx Other Medical HTN, h/o [place], , obesity, hyperlipidemia, dentures,; Comments: MAF 04/26/2016 - Coronary artery stenosis Coronar y artery stenosis Hyperlipidemia Hypertension Diabetes mellitus (HCC) COPD (chronic obstructive pu lmonary disease) (HCC) GERD (gastroesophageal reflux disease) Family History Medical History Relation Name Comments Coronary artery disease Father Heart attack Father Heart failure Father Other Father heart related; Cause of : heart related Sudden Cardiac Father Cancer Mother Cancer, unknown ; Cause of : Cancer, unknown Other Sister 2 Alive and well; Relation Name Status Comments Father Mother (Age 72) Sister 1 Alive Sister 2 Social History Tobacco Use Types Packs/Day Years Used Date Smoking Tobacco: Every Day Cigarettes Smokeless Tobacco: Former Tobacco Cessation:Ready to Q uit: Not Asked; Counseling Given: Not Answered Alcohol Use Standard Drinks/Week Comments No 0 (1 standard drink = 0.6 oz pur e alcohol) Sex and Gender Information Value Date Recorded Sex Assigned at Not on file Legal Sex Male 4:13 AM MANAGER SOUND Gender Identity Not on file Sexual Orientation Not on file Obstetrics History Last Filed Vital Signs Vital Sign Reading Time Taken Comments Blood Pressure 100/62 10/19/2024 11:06 AM CDT Pulse 87 10/19/2024 11:06 AM CDT Temperature 36.5 C (97.7 F) 11/15/2020 11:14 AM CDT Respiratory Rate 19 07/25/2020 5:50 PM MANAGER SOUND Oxygen Saturation 96% 10/19/2024 11:06 AM CDT Inhaled Oxygen Concentration - - Weight 78.5 kg (173 lb) 10/19/2024 11:06 AM CDT Height 177.8 cm (5' 10 ) 10/19/2024 11:06 AM CDT Body Mass Index 24.82 10/19/2024 11:06 AM CDT Plan of Treatment Health Maintenance Due Date Last Done Comments Albumin Creatinine Ratio, Urine 1945 Depression Screening 1945 Hemoglobin A1C 1943 eGFR 1945 Dilated Eye Exam 1943 Foot Exam 1943 DTaP/Tdap/Td Vaccine (1 - Tdap) 1954 Hepatitis B Screening 1961 Zoster Vaccine (1 of 2) 1993 Well Visit 65+ 2008 Fall Risk Assessment 07/25/2021 07/25/2020 Lipid Panel 07/12/2024 07/12/2023, 03/13, 04/12/2021, Additional history exists Influenza Vaccine (Season Ended) 2025 05/12/20 20, 06/21/2019 Pneumococcal vaccine 65+ Completed 019, 05/14/2016, 06/07/2015 Abdominal Aortic Aneurysm (A AA) Screen Completed 08/12/2022 Medical Devices Implanted Type Area Office Worker Device Identifier Shelf Expiration Date Model / Serial / Lot [employer] [id number] System 6-12fr Mvp Venous Closure Vascade - [id number] Implanted:Qty: 1 on 07/25/2020 by Florentin Lopez MD at [facility] [employer] 05/03/2022 800-612C-1 [id number] / / [id number] [employer] [id number] System 6-12fr Mvp Venous Closure Vascade - [id number] Implanted:Qty: 1 on 07/25/2020 by Florentin Lopez MD at [facility] [employer] 05/10/2022 800-612C-1 0U / / [id number] [employer] [id number] System 6-12fr Mvp Venous Closure Vascade - [id number] Implanted:Qty: 1 on 07/25/2020 by Florentin Lopez MD at [facility] [employer] 05/10/2022 800-612C-1 0U / / [id number] [employer] [id number] System 6-12fr Mvp Venous Closure Vascade - [id number] Implanted:Qty: 1 on 07/25/2020 by Florentin Lopez MD at [facility] [employer] 05/03/2022 800-612C-1 0U / / [id number] Stent Chest Description: proximal LAD p er daughter in law Procedures Procedure Name Priority Date/Time Associated Diagnosis Comments LIPID PANEL Routine 07/12/2023 Coronary artery disease of [place] artery of [place] heart with stable angina pectoris from Last 3 Months or Most Recently Relevant to Health Maintenance Results * Lipid panel (07/12/2023) SCRIBED Cholesterol, Total 120 0 - 200 EXTERNAL LAB SCRIBED HDL 45 40 - 100 EXTERNAL LAB SCRIBED LDL 56 0 - 100 EXTERNAL LAB SCRIBED Triglycerides 82 0 - 150 EXTERNAL LAB Blood 07/12/2023 us Jaime Pratt MD LAB BLOOD ORDERABLES Myra hutchinson Result EXTERNAL LAB from Last 3 Months or Most Recently Relevant to Health Maintenance [facility] AETNA [facility] Care Teams Enameler Relationship Specialty Start Date End Date Ian Jaeger MD [address] [place] [address] PCP - General Emergency Medicine 08/17/22
--- OUTSIDE RECORDS SUMMARY | 2024-12-08 10:34 | XMS_ITS | Referral Summary ---
Author Organization [facility] [address] [facility] [address] [place] [address] Care Team Providers Care Superintendent Maintenance Name Role Phone Ian Jaeger MD Primary Care Provide r Encounters Date Type Department Care Team Description 11/20/2024 Telephone [facility] Medical [facility] Cardiology [address] [place] [address] Jaime Pratt MD 10/19/2024 10:45 AM CDT Office Visit [facility] Medical [facility] Cardiology [address] [place] [address] Jaime Pratt MD Coronary artery disease of [place] artery of [place] heart with stable angina pectoris (Primary Dx); Chronic systolic heart failure (HCC); Hyperlipidemia associated with type 2 diabetes mellitus (HCC); Ventricular bigeminy; Hypertension associated with diabetes (HCC) from Last 3 Months Allergies Active Allergy Reactions Criticality Noted Date [...] mg SL tabletIndicatio ns:Coronary artery disease involving [place] coronary artery of [place] heart without angina pectoris Place 1 tablet [...] 60 mg tabletIndicatio ns:Coronary artery disease of [place] artery of [place] heart with stable angina pectoris TAKE 1 [...] (06/15/2020): Added automatically from request for surgery [id number] Preoperative cardiovascular examination 02/26/20 Bradycardia 02/26/2020 Ventricular bigeminy 02/26/2020 Gastroesophageal reflux disease 03/25/2019 Bone lesion 04/01/2018 Hyperlipidemia associated with type 2 diabetes m ellitus 06/10/2017 Hypertension associated with diabetes 06/10/2017 Coronary artery disease of [place] artery of [place] heart with stable angina pectoris 05/29/2016 Overview (11/15/2016): Coronary artery disease involving [place] coronary artery of [place] heart without angina pectoris Chronic systolic heart failure 05/29/2016 Overview (11/15/2016): Chronic systolic (congestive) heart failure Obstructive sleep apnea syndrome 05/29/2016 Overview (11/15/2016): Obstructive sleep apnea Hyperlipidemia LDL goal <70 04/26/2016 Overview (11/14/2016): Hyperlipidemia LDL goal <70 Dyspnea on exertion 04/26/2016 Overview (11/14/2016): Dyspnea on effort Cardiomyopathy 04/26/2016 Overview (11/15/2016): Cardiomyopathy Essential hypertension 04/26/2016 Overview (11/15/2016): Essential hypertension Immunizations Immunization Administration Dates Next Due Influenza, Unspecified 05/12/2020 Social History Tobacco Use Types Packs/Day Years Used Date Smoking Tobacco: Every Day Cigarettes Smokeless Tobacco: Former Tobacco Cessation:Ready to Q uit: Not Asked; Counseling Given: Not Answered Alcohol Use Standard Drinks/Week Comments No 0 (1 standard drink = 0.6 oz pur e alcohol) Sex and Gender Information Value Date Recorded Sex Assigned at Not on file Legal Sex Male 4:13 AM DINING MANAGER Gender Identity Not on file Sexual Orientation Not on file Last Filed Vital Signs Vital Sign Reading Time Taken Comments Blood Pressure 100/62 10/19/2024 11:06 AM CDT Pulse 87 10/19/2024 11:06 AM CDT Temperature 36.5 C (97.7 F) 11/15/2020 11:14 AM CDT Respiratory Rate 19 07/25/2020 5:50 PM DINING MANAGER Oxygen Saturation 96% 10/19/2024 11:06 AM CDT Inhaled Oxygen Concentration - - Weight 78.5 kg (173 lb) 10/19/2024 11:06 AM CDT Height 177.8 cm (5' 10 ) 10/19/2024 11:06 AM CDT Body Mass Index 24.82 10/19/2024 11:06 AM CDT Plan of Treatment Not on file Medical Devices Implanted Type Area Business Development Analyst Device Identifier Shelf Expiration Date Model / Serial / Lot [employer] [id number] System 6-12fr Mvp Venous Closure Vascade - [id number] Implanted:Qty: 1 on 07/25/2020 by Florentin Lopez MD at [facility] [employer] 05/03/2022 800-612C-1 [id number] / / [id number] [employer] [id number] System 6-12fr Mvp Venous Closure Vascade - [id number] Implanted:Qty: 1 on 07/25/2020 by Florentin Lopez MD at [facility] [employer] 05/10/2022 800-612C-1 0U / / [id number] [employer] [id number] System 6-12fr Mvp Venous Closure Vascade - [id number] Implanted:Qty: 1 on 07/25/2020 by Florentin Lopez MD at [facility] [employer] 05/10/2022 800-612C-1 0U / / [id number] [employer] [id number] System 6-12fr Mvp Venous Closure Vascade - [id number] Implanted:Qty: 1 on 07/25/2020 by Florentin Lopez MD at [facility] [employer] 05/03/2022 800-612C-1 0U / / [id number] Stent Chest Description: proximal LAD p er daughter in law Procedures Procedure Name Priority Date/Time Associated Diagnosis Comments LIPID PANEL Routine 07/12/2023 Coronary artery disease of [place] artery of [place] heart with stable angina pectoris from Last [...] Recently Relevant to Health Maintenance Insurance MEDICARE [facility] MEDICARE [facility] Care Teams Superintendent Maintenance Relationship Specialty Start Date End Date Ian Jaeger MD [address] [place], [place] [id number] PCP - General Emergency Medicine 08/17/22
--- NOTE | 2024-12-08 11:01 | ED.SOB ---
HPI - SOB/Dyspnea General Chief Complaint: Shortness of Breath/Dyspnea Stated Complaint: SOB Time Seen by Provider: 12/08/24 09:37 History of Present Illness HPI Narrative: Patient is an 79-year-old male who presents ER from an orthopedic surgery office for weakness and shortness of breath. Significant other reports over last 2 weeks he has had increased weakness and fatigue sitting around the house is not eating and drinking. He is short of breath when he exerts himself. Patient has no complaints. Apparently he has been having some knee pain and he was supposed to get injection today. He had been taking tramadol at home and was out. Because of his pain at home the purchase 10 mg THC gummies from a local dispensary and has been giving him his medications daily. This coincides with his decrease in eating and exertional ability. Blood pressure in the low 90s on arrival. No tachycardia. Last dose of THC was yesterday evening. Related Data Home Medications ?Medication ?Instructions ?Recorded ?Confirmed ?Last Taken ?Type aspirin 81 mg tablet,delayed 81 mg PO DAILY 11/29/21 12/08/24 Unknown History release latanoprost 0.005 % eye drops 1 drp EACH EYE QPM 11/29/21 12/08/24 Unknown History metoprolol succinate 25 mg 12.5 mg PO DAILY 11/29/21 12/08/24 Unknown History tablet,extended release 24 hr nitroglycerin 0.4 mg sublingual 0.4 mg sublingual Q5M PRN Chest 11/29/21 12/08/24 Unknown History tablet Pain potassium chloride 20 mEq 20 meq PO DAILY 11/29/21 12/08/24 Unknown History tablet,extended release ticagrelor 60 mg tablet (Brilinta) 60 mg PO Q12H 11/29/21 12/08/24 Unknown History sacubitril 24 mg-valsartan 26 mg 1 tablet PO BID 09/04/22 12/08/24 Unknown History tablet (Entresto) glucosamine OPa-K2-Zuhvnliri 1 tablet PO DAILY 05/19/24 12/08/24 Unknown History elise 1,500 mg-400 unit-100 mg tablet (Osteo Bi-Flex (5-Loxin)) evolocumab 140 mg/mL subcutaneous See Rx Instructions .Route .COMPLEX 06/09/24 12/08/24 11/25/24 History syringe (Repatha Syringe) Allergies Allergy/AdvReac Type Severity Reaction Status Date / Time carvedilol Allergy Unknown unknown Verified 12/08/24 09:47 lisinopril Allergy Unknown Swelling Verified 12/08/24 09:47 varenicline Allergy Unknown unknown Verified 12/08/24 09:47 Zssskci-TUP-NeV Reductase AdvReac Unknown Verified 12/08/24 09:47 Inhibitor Review of Systems Review of Systems: All systems reviewed & are unremarkable except as noted in HPI and below Constitutional: Constitutional: Reports no additional constitutional complaints ENT: Reports system reviewed and no additional complaints, except as documented Cardiovascular: Cardiovascular: Reports no additional cardiovascular complaints Respiratory: Respiratory: Reports no additional respiratory complaints Musculoskeletal: Musculoskeletal: Reports no additional musculoskeletal complaints [facility] Past Medical History Medical History Weakness Hypertension Type 2 diabetes mellitus Peptic ulcer Congestive heart failure Coronary artery disease Effusion of knee joint Left knee DJD Right knee DJD Upper respiratory tract infection Tendinitis of right rotator cuff Primary osteoarthritis of right shoulder Impingement syndrome of right shoulder Chronic right shoulder pain Myocardial infarction Rotator cuff tear arthropathy of right shoulder Lumbosacral spondylosis with radiculopathy Surgical History Surgical History History of coronary artery stent placement Family History Family History Other Acute myocardial infarction Breast cancer Social History Social History Social History: Surrogate medical decision maker: Alana Renee, friend. Code status: Full code. Smoking packs per day: 0.5 Smoking cigarettes per day: 10.0 Years smoked: 60 Smoking pack-years: 30.00 Smoking status: Current every day smoker Tobacco type: cigarettes Second hand tobacco smoke exposure: No Alcohol intake: never Substance use: current Substance use type: marijuana Last use: 12/07/24 Do You Feel Safe in your Home?: Yes Lack of Transportation: No Lack of Food: Never True Current Housing: I Have Housing Concerned About Future Housing: No Difficulty Paying Gas/Electric Bills: No Difficulty Paying for Meds: No Currently Unemployed: No Education: High School Diploma/GED Difficulty w/ Childcare or Family Care: No Living arrangements: alone Additional living arrangements comments: Lives in [place]. Occupation/Education: retired Additional occupation/education comments: [employer]. Spiritual care concerns: No Agree to blood products: Yes Exam Narrative: GENERAL: Well-appearing, well-nourished, and in no acute distress. HEAD: Normocephalic, atraumatic. ENT: Mucous membranes moist. CHEST: Clear to auscultation. No respiratory distress. HEART: Regular rate and rhythm. Normal peripheral pulses. ABDOMEN: Soft, nontender, nondistended. EXTREMITIES: Normal range of motion. 1+ edema. SKIN: Warm, dry, no rash. NEURO: Alert and oriented x3. PSYCH: Normal mood and affect. Course Course Emergency Course: Patient is up and ambulatory without symptoms despite receiving 1 L of IV fluid and still being hypotensive with a blood pressure in the 90 systolic. Will admit for observation more gentle hydration. There is no echocardiogram available. BNP is elevated. Vital Signs Vital signs: Vital Signs Temperature 97.5 F L 12/08/24 09:39 Pulse Rate 92 12/08/24 09:39 Respiratory Rate 16 12/08/24 09:39 Blood Pressure 93/57 L 12/08/24 09:39 Pulse Oximetry 99 12/08/24 09:39 Oxygen Delivery Room Air 12/08/24 09:39 Temperature 97.0 F L 12/08/24 16:00 Pulse Rate 75 12/08/24 16:00 Respiratory Rate 18 12/08/24 16:00 Blood Pressure 95/63 L 12/08/24 16:00 Pulse Oximetry 99 12/08/24 16:00 Oxygen Delivery Room Air 12/08/24 09:54 MDM - SOB/Dyspnea Lab Data 12/08/24 09:52 12/08/24 09:52 Labs: Lab Results 12/08/24 12/08/24 Range/Units 09:52 09:52 WBC 2.0 L (4.5-10.0) K/mm3 RBC 3.98 L (4.6-6.20) M/mm3 Hgb 9.6 L (14.0-18.0) g/dL Hct 32.4 L (42.0-52.0) % MCV 81.4 (80-100) fl MCH 24.1 L (26-34) pg MCHC 29.6 L (32-36) g/dl RDW 17.5 H (11.5-14.5) % Plt Count 417 H (150-375) k/mm3 MPV 9.0 (7.4-10.4) fl Immature Gran % (Auto) 1.0 H (0-0.5) % Neut % (Auto) 66.5 (45.5-73.1) % Lymph % (Auto) 25.4 (18.3-44.2) % [place] % (Auto) 7.1 (2.6-8.5) % Eos % (Auto) 0.0 (0-4.4) % Baso % (Auto) 0.0 L (0.2-1.2) % Lymph # (Auto) 0.50 L (0.9-3.2) K/mm3 [place] # (Auto) 0.1 (0.1-0.6) K/mm3 Eos # (Auto) 0.0 (0-0.3) K/mm3 Baso # (Auto) 0.0 (0.0-0.1) K/mm3 Abs Immat Gran (auto) 0.02 (0.00-0.031) K/mm3 Absolute Neuts (auto) 1.3 (1.3-6.7) K/mm3 Absolute Nucleated RBC 0.000 (0.0-0.012) K/mm3 Band Neutrophils % Not Reportable Nucleated RBC % 0.0 (0.0-0.2) % Platelet Estimate Slightly increased (Adequate) Hypochromasia 1+ Anisocytosis 1+ Schistocytes None seen Sodium 137 (137-145) mmol/L Potassium 4.2 (3.4-5.0) mmol/L Chloride 100 (98-107) mmol/L Carbon Dioxide 22 (22-30) mmol/L Anion Gap 15 H (4-12) mmol/L BUN 38 H D (9-20) mg/dL Creatinine 0.97 (0.7-1.3) mg/dL Estim Creat Clear Calc 51 ml/min Estimated GFR > 60 (59 - ) Glucose 139 H (65-110) mg/dL Calcium 9.5 (8.4-10.2) mg/dL Magnesium 2.0 (1.6-2.3) mg/dL Total Bilirubin 0.7 (0.2-1.3) mg/dL AST 30 (17-59) U/L ALT 15 (6-50) U/L Alkaline Phosphatase 127 H (38-126) U/L NT-Pro-B Natriuret Pep 5440 H Cancelled (19.9-100) pg/mL Total Protein 8.0 (6.3-8.2) g/dL Albumin 3.9 (3.5-5.1) g/dL TSH 0.887 (0.465-4.680) uIU/mL Imaging Data Radiologist's impression: ITS Impressions Chest X-Ray 12/08/24 10:57 IMPRESSION: 1: NO ACUTE CARDIOPULMONARY DISEASE. ECG Data EKG #1: ECG completion date: 12/08/24 ECG completion time: 09:45 EKG Interpretation: normal rate (92), sinus rhythm, PACs, non-specific ST changes, normal QT and left axis Discharge Plan Discharge Clinical Impression: Dehydration, Weakness Patient Disposition: Still a Patient Condition: Stable
--- NOTE | 2024-12-08 14:55 | P.HP_ITS ---
H&P: HPI History of Present Illness Date/Time: 12/08/24 14:55 Chief Complaint: Shortness of breath/dyspnea Narrative: This is an 79 year old male with a significant past medical history of Type 2 DM, hypertension, CHF with reduced EF, CAD with stent placement, [place], tobacco abuse who presented to the hospital with complaint of shortness of breath/dyspnea. Work up in the hospital included a chest x-ray which was negative. Initial labs shown a WBC 2.0, Hgb 9.6, anion gap 15, alkaline phosphate 127, proBNP 5440, TSH 0.887. UA was negative. Respiratory panel was negative for influenza A and B, RSV, COVID. EKG shown NSR with rate of 92 with left axis deviation, QTc 423. Patient was given 1L NS while in the ER. Review of Systems Review of Systems: All systems reviewed & are unremarkable except as noted in HPI and below PMFSH Past Medical History Medical History Weakness Hypertension Type 2 diabetes mellitus Peptic ulcer Congestive heart failure Coronary artery disease Effusion of knee joint Left knee DJD Right knee DJD Upper respiratory tract infection Tendinitis of right rotator cuff Primary osteoarthritis of right shoulder Impingement syndrome of right shoulder Chronic right shoulder pain Myocardial infarction Rotator cuff tear arthropathy of right shoulder Lumbosacral spondylosis with radiculopathy Surgical History Surgical History History of coronary artery stent placement Family History Family History Other Acute myocardial infarction Breast cancer Social History Social History Social History: Surrogate medical decision maker: Alana Víctor, friend. Code status: Full code. Smoking packs per day: 0.5 Smoking cigarettes per day: 10.0 Years smoked: 60 Smoking pack-years: 30.00 Smoking status: Current every day smoker Tobacco type: cigarettes Second hand tobacco smoke exposure: No Alcohol intake: never Substance use: current Substance use type: marijuana Last use: 12/07/24 Do You Feel Safe in your Home?: Yes Lack of Transportation: No Lack of Food: Never True Current Housing: I Have Housing Concerned About Future Housing: No Difficulty Paying Gas/Electric Bills: No Difficulty Paying for Meds: No Currently Unemployed: No Education: High School Diploma/GED Difficulty w/ Childcare or Family Care: No Living arrangements: alone Additional living arrangements comments: Lives in [place]. Occupation/Education: retired Additional occupation/education comments: [employer]. Spiritual care concerns: No Agree to blood products: Yes Meds Home Medications and Allergies Home Medications ?Medication ?Instructions ?Recorded ?Confirmed ?Type aspirin 81 mg tablet,delayed 81 mg PO DAILY 11/29/21 12/08/24 History release latanoprost 0.005 % eye drops 1 drp EACH EYE QPM 11/29/21 12/08/24 History metoprolol succinate 25 mg 12.5 mg PO DAILY 11/29/21 12/08/24 History tablet,extended release 24 hr nitroglycerin 0.4 mg sublingual 0.4 mg sublingual Q5M PRN Chest 11/29/21 12/08/24 History tablet Pain potassium chloride 20 mEq 20 meq PO DAILY 11/29/21 12/08/24 History tablet,extended release ticagrelor 60 mg tablet (Brilinta) 60 mg PO Q12H 11/29/21 12/08/24 History sacubitril 24 mg-valsartan 26 mg 1 tablet PO BID 09/04/22 12/08/24 History tablet (Entresto) albuterol sulfate 90 mcg/actuation See Rx Instructions .Route 01/07/24 12/08/24 Rx aerosol inhaler .COMPLEX #25.5 ea fluticasone 250 mcg-salmeterol 50 1 inh inhalation BID #180 ea 04/03/24 12/08/24 Rx mcg/dose blistr powdr for inhalation (Advair Diskus) glucosamine [id number]-Flxhhevlm 1 tablet PO DAILY 05/19/24 12/08/24 History elise 1,500 mg-400 unit-100 mg tablet (Osteo Bi-Flex (5-Loxin)) evolocumab 140 mg/mL subcutaneous See Rx Instructions .Route .COMPLEX 06/09/24 12/08/24 History syringe (Repatha Syringe) fluconazole 100 mg tablet 100 mg PO BID 14 days #28 tabs 06/11/24 12/08/24 Rx (Diflucan) pantoprazole 40 mg tablet,delayed 40 mg PO BID #60 tabs 06/11/24 12/08/24 Rx release metformin 500 mg tablet See Rx Instructions .Route 09/11/24 12/08/24 Rx .COMPLEX #270 tabs tramadol 50 mg tablet 50 mg PO BID PRN pain #60 tabs 10/15/24 12/08/24 Rx furosemide 40 mg tablet See Rx Instructions .Route 11/02/24 12/08/24 Rx .COMPLEX #180 tabs Allergies Allergy/AdvReac Type Severity Reaction Status Date / Time carvedilol Allergy Unknown unknown Verified 12/08/24 09:47 lisinopril Allergy Unknown Swelling Verified 12/08/24 09:47 varenicline Allergy Unknown unknown Verified 12/08/24 09:47 Skpmhgh-YUF-HvF Reductase AdvReac Unknown Verified 12/08/24 09:47 Inhibitor Vital Signs Vital Signs - 24 hr 12/08/24 09:39 12/08/24 09:54 12/08/24 09:54 Temperature 97.5 F L Pulse Rate 92 85 Respiratory Rate 16 Blood Pressure 93/57 L Pulse Oximetry 99 97 Oxygen Delivery Room Air Room Air 12/08/24 10:57 12/08/24 12:17 12/08/24 14:45 Temperature Pulse Rate 78 80 77 Respiratory Rate 25 H 14 14 Blood Pressure 95/49 L 91/57 L 82/62 L Pulse Oximetry 100 100 99 Oxygen Delivery Exam Narrative: General: In no acute distress, well nourished Head: atraumatic, no encephalopathy Eyes: EOMI, PERRLA, sclera clear ENT: moist mucous membranes, nasal passages clear Neck: supple, no JVD, no adenopathy, trachea midline Cardiac: Normal S1 and S2. No murmur, gallops or friction rubs, peripheral pu lses intact. Respiratory: Lungs clear to auscultation, no adventitious lung sounds, currently on room air Gastrointestinal: soft, non-distended, non-tender, normoactive bowel sounds. : voiding without difficulty. Extremities: moves all extremities well, no edema Skin: clean, dry, intact. No wounds or lesions. Neuro: Alert and oriented x3, cranial nerves intact, no neuro deficits. Psych: normal mood, normal affect, interactive H&P: Results Labs Labs: Short CBC 04/29/25 Range/Units 09:52 WBC 2.0 L (4.5-10.0) K/mm3 Hgb 9.6 L (14.0-18.0) g/dL Hct 32.4 L (42.0-52.0) % Plt Count 417 H (150-375) k/mm3 BMP 12/08/24 09:52 Sodium 137 Potassium 4.2 Chloride 100 Carbon Dioxide 22 BUN 38 H D Creatinine 0.97 Glucose 139 H Calcium 9.5 Liver Function 12/08/24 Range/Units 09:52 Total Bilirubin 0.7 (0.2-1.3) mg/dL AST 30 (17-59) U/L ALT 15 (6-50) U/L Alkaline Phosphatase 127 H (38-126) U/L Albumin 3.9 (3.5-5.1) g/dL Imaging Chest x-ray: Radiologist's impression: EXAMINATION: XR chest 2V 12/08/2024 10:53 INDICATION: Shortness of breath PROCEDURE: 2 view chest COMPARISON: Comparison to multiple prior studies sequentially, with oldest reviewed study dated 08/27/2026. FINDINGS: The lungs are clear. The cardiomediastinal silhouette is within normal limits. There are no pleural effusions. There is no pneumothorax suspected. There are scattered calcified granulomas. The lungs are hyperinflated which is consistent with, but not diagnostic of chronic obstructive pulmonary disease. IMPRESSION: 1: NO ACUTE CARDIOPULMONARY DISEASE. Reviewed, dictated and finalized at location A. Assessment and Plan Assessment and plan (1) CHF (congestive heart failure): Code(s): I50.9 - Heart failure, unspecified Status: Acute Assessment and Plan: * Previous echo back in August 2023 shown an ejection fraction of 30% and grade 1 diastolic dysfunction * Is followed by Dr. Pratt * Will repeat echo today * Continue metoprolol * Will hold Lasix and Entresto for now * proBNP 5440 * CXR was negative * Patient was given 1L NS while in the ER. Likely dry due to decreased oral intake. (2) Hypertension: Code(s): I10 - Essential (primary) hypertension Status: Acute Assessment and Plan: * Blood pressure ranging 92/70 to 101/52 * Will hold Entresto * Patient was given 1L NS while in the ER for hydration (3) Coronary artery disease: Code(s): I25.10 - Atherosclerotic heart disease of [place] coronary artery without angina pectoris Status: Acute Assessment and Plan: * Continue Brilinta, aspirin * Patient is also on Repatha (4) Type 2 diabetes mellitus: Code(s): E11.9 - Type 2 diabetes mellitus without complications Status: Acute Assessment and Plan: * Blood sugar 139 * Hgb A1C 6.3 on 06/23/24 * Accu checks AC/HS * Moderate dose SSI ordered * hypoglycemic protocol in place * Metformin on hold * Diabetic diet ordered (5) GERD (gastroesophageal reflux disease): Qualifiers: Esophagitis presence: esophagitis presence not specified Qualified Code(s): K21.9 - Gastro-esophageal reflux disease without esophagitis Code(s): K21.9 - Gastro-esophageal reflux disease without esophagitis Status: Acute Assessment and Plan: * Continue Protonix 40 mg p.o. b.i.d. Quality VTE Prophylaxis VTE prophylaxis: pharmacologic ordered Hospitalist MIPS Advance Care Plan I have confirmed that the patient's Advanced Care Plan is present, code status is documented, or surrogate decision maker is listed in patient medical record.: Yes Medication Reconciliation I have utilized all available resources to obtain, update and review the patients current medications (includes all prescriptions, OTC, herbals, cannabis, and nutritional supplements).: Yes
[2024-12-08 15:04] LABS: Add Urine Microscopic? NO; Appearance Urine Clear (Clear); Bilirubin Urine Negative (Negative); Blood Urine Negative (Negative); Color Urine Yellow (Yellow); Glucose Urine UA Negative (Negative); Ketones Urine Negative (Negative); Leukocyte Esterase Ur Negative LEU/UL (Negative); Nitrate Urine Negative (Negative); Protein Urine Negative (Negative); Specific Grav Ur 1.015 (1.001-1.035); Urobilinogen Urine 0.2 mg/dL (<2.0); pH Urine 5.5 (5.0-9.0)
[2024-12-08 15:43] LABS: Influenza A QL RT-PCR Negative (Negative); Influenza B QL RT-PCR Negative (Negative); RSV RNA, RT-PCR Negative (Negative); SARS-CoV-2 RNA PCR Negative (Negative)
--- NOTE | 2024-12-08 16:02 | ADMGEN ---
This patient, Phill Monae, was admitted to Medical Room 340-01. Patient/family oriented to hospital policies and general routines including ID bracelet, bed and alarms, visiting hours, pain management, procedures, bathroom and other care routines, personal items, smoking policy, room service/diet, and visiting hours. Information on how to activate the Rapid Response Team has been discussed. Patient/Family are encouraged to report perceived risks to care and to ask questions if they do not understand what they are told or what they should do.
[2024-12-08 16:05] LABS: Thyroid Stimulating Hormone 0.887 uIU/mL (0.465-4.680)
[2024-12-08 17:08] LABS: Glucose Point of Care 103 mg/dl (65-105)
--- OUTSIDE RECORDS SUMMARY | 2024-12-08 17:15 | XMS_ITS | Referral Summary ---
Author Organization [facility] [address] [facility] [address] Address [address] [place] [address] Care Team Providers Care Utility Clerk Name Role Phone Ian Jaeger MD Primary Care Provide r Encounters Date Type Department Care Team Description 11/20/2024 Telephone [facility] Cardiology [address] [place] [address] Jaime Pratt MD 10/19/2024 10:45 AM CDT Office Visit [facility] Cardiology [address] [place] [address] Jaime Pratt MD Coronary artery disease of [place] artery of [place] heart with stable angina pectoris (Primary Dx); [...] mg SL tabletIndicatio ns:Coronary artery disease involving [place] coronary artery of [place] heart without angina pectoris Place 1 tablet [...] 60 mg tabletIndicatio ns:Coronary artery disease of [place] artery of [place] heart with stable angina pectoris TAKE 1 [...] (06/15/2020): Added automatically from request for surgery [id number] Preoperative cardiovascular examination 02/26/20 Bradycardia 02/26/2020 Ventricular bigeminy 02/26/2020 Gastroesophageal reflux disease 03/25/2019 Bone lesion 04/01/2018 Hyperlipidemia associated with type 2 diabetes m ellitus 06/10/2017 Hypertension associated with diabetes 06/10/2017 Coronary artery disease of [place] artery of [place] heart with stable angina pectoris 05/29/2016 Overview (11/15/2016): Coronary artery disease involving [place] coronary artery of [place] heart without angina pectoris Chronic systolic heart [...] on file 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 Gender Identity Not on file Sexual Orientation Not on file Last Filed Vital Signs Vital Sign Reading Time Taken Comments Blood Pressure 100/62 10/19/2024 11:06 AM CDT Pulse 87 10/19/2024 11:06 AM CDT Temperature 36.5 C (97.7 F) 11/15/2020 11:14 AM CDT Respiratory Rate 19 07/25/2020 5:50 PM 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 Oxygen Saturation 96% 10/19/2024 11:06 AM CDT Inhaled Oxygen Concentration - - Weight 78.5 kg (173 lb) 10/19/2024 11:06 AM CDT Height 177.8 cm (5' 10 ) 10/19/2024 11:06 AM CDT Body Mass Index 24.82 10/19/2024 11:06 AM CDT Plan of Treatment Not on file Medical Devices Implanted Type Area Equipment Superintendent Device Identifier Shelf Expiration Date Model / Serial / Lot [employer] [id number] System 6-12fr Mvp Venous Closure Vascade - [id number] Implanted:Qty: 1 on 07/25/2020 by Florentin Lopez MD at [facility] Collagen [employer] 05/03/2022 800-612C-1 0U / / [id number] [employer] [id number] System 6-12fr Mvp Venous Closure Vascade - [id number] Implanted:Qty: 1 on 07/25/2020 by Florentin Lopez MD at [facility] Collagen [employer] 05/10/2022 800-612C-1 0U / / [id number] [employer] [id number] System 6-12fr Mvp Venous Closure Vascade - [id number] Implanted:Qty: 1 on 07/25/2020 by Florentin Lopez MD at [facility] Collagen [employer] 05/10/2022 800-612C-1 0U / / [id number] [employer] [id number] System 6-12fr Mvp Venous Closure Vascade - [id number] Implanted:Qty: 1 on 07/25/2020 by Florentin Lopez MD at [facility] Collagen [employer] 05/03/2022 800-612C-1 0U / / [id number] Stent Chest Description: proximal LAD p er daughter in law Procedures Procedure Name Priority Date/Time Associated Diagnosis Comments LIPID PANEL Routine 07/12/2023 Coronary artery disease of [place] artery of [place] heart with stable angina pectoris from Last [...] to Health Maintenance Insurance MEDICARE [facility] MEDICARE [facility] Address: [facility] [id number] [place] [phone] [facility] MEDICARE [facility] Address: [address] [phone] [facility] Care Teams Utility Clerk Relationship Specialty Start Date End Date Ian Jaeger MD [address] [place], [place] [id number] PCP - General Emergency Medicine 08/17/22
--- OUTSIDE RECORDS SUMMARY | 2024-12-08 17:15 | XMS_ITS | Clinical Summary ---
Author Organization [facility] [address] Address [address] [place] [address] Care Team Providers Care Bridge Repairer Name Role Phone Ian Jaeger MD Primary [...] mg SL tabletIndicatio ns:Coronary artery disease involving [place] coronary artery of [place] heart without angina pectoris Place 1 tablet [...] 60 mg tabletIndicatio ns:Coronary artery disease of [place] artery of [place] heart with stable angina pectoris TAKE 1 [...] (06/15/2020): Added automatically from request for surgery [id number] Preoperative cardiovascular examination 02/26/20 20 Bradycardia 02/26/2020 Ventricular bigeminy 02/26/2020 Gastroesophageal reflux disease 03/25/2019 Bone lesion 04/01/2018 Hyperlipidemia associated with type 2 diabetes m ellitus 06/10/2017 Hypertension associated with diabetes 06/10/2017 Coronary artery disease of n ative artery of [place] heart with stable angina pectoris 05/29/2016 Overview (11/15/2016): Coronary artery disease involving [place] coronary artery of [place] heart without angina pectoris Chronic systolic heart [...] Type Department Care Team Description 11/20/2024 Telephone [facility] Cardiology [address] [place] [address] Jaime Pratt MD 10/19/2024 10:45 AM CDT Office Visit [facility] Cardiology [address] [place] [address] Jaime Pratt MD Coronary artery disease of [place] artery of [place] heart with stable angina pectoris (Primary Dx); [...] Date Comments Hx Other Medical HTN, h/o VA, , obesity, hyperlipidemia, dentures,; Comments: MAF 04/26/2016 [...] on file 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 Gender Identity Not on file Sexual Orientation Not on file Obstetrics History Last Filed Vital Signs Vital Sign Reading Time Taken Comments Blood Pressure 100/62 10/19/2024 11:06 AM CDT Pulse 87 10/19/2024 11:06 AM CDT Temperature 36.5 C (97.7 F) 11/15/2020 11:14 AM CDT Respiratory Rate 19 07/25/2020 5:50 PM SENIOR RESEARCH ENGINEER Oxygen Saturation 96% 10/19/2024 11:06 AM CDT [...] Completed 08/12/2022 Medical Devices Implanted Type Area Quality Lead Device Identifier Shelf Expiration Date Model / Serial / Lot [employer] [id number] System 6-12fr Mvp Venous Closure Vascade - [id number] Implanted:Qty: 1 on 07/25/2020 by Florentin Lopez MD at [facility] Collagen [employer] 05/03/2022 800-612C-1 0U / / [id number] [employer] [id number] System 6-12fr Mvp Venous Closure Vascade - [id number] Implanted:Qty: 1 on 07/25/2020 by Florentin Lopez MD at [facility] [employer] 05/10/2022 800-612C-1 0U / / [id number] [employer] [id number] System 6-12fr Mvp Venous Closure Vascade - [id number] Implanted:Qty: 1 on 07/25/2020 by Florentin Lopez MD at [facility] [employer] 05/10/2022 800-612C-1 0U / / [id number] [employer] [id number] System 6-12fr Mvp Venous Closure Vascade - [id number] Implanted:Qty: 1 on 07/25/2020 by Florentin Lopez MD at [facility] [employer] 05/03/2022 800-612C-1 0U / / [id number] Stent Chest Description: proximal LAD p er daughter in law Procedures Procedure Name Priority Date/Time Associated Diagnosis Comments LIPID PANEL Routine 07/12/2023 Coronary artery disease of [place] artery of [place] heart with stable angina pectoris from Last [...] Recently Relevant to Health Maintenance [facility] Care Teams Bridge Repairer Relationship Specialty Start Date End Date Ian Jaeger MD [address] [place] [address] PCP - General Emergency Medicine 08/17/22
--- OUTSIDE RECORDS SUMMARY | 2024-12-08 17:15 | XMS_ITS | Encounter Summary ---
Author Organization [facility] Address [address] [facility] [address] [place] [address] Care Team Providers Care Aircraft Shipping Checker Name Role Phone No, Physician Primary Care Provider [phone] Rinku Glover MD Primary Care Provider Ian Jaeger MD Primary Care Provide r Encounter Details Date Type Department Care Team (Late st Contact Info) Description 08/23/2016 Orders Only [facility] ProviderAyala MD [address] [place] [address] Social History Tobacco Use Types Packs/Day Years Used Date Smoking Tobacco: Former Alcohol Use Standard Drinks/Week Comments No 0 (1 standard drink = 0.6 oz pur e alcohol) Sex and Gender Information Value Date Recorded Sex Assigned at Not on file 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 Historical Provider [facility] JOSE EBRGER Final Result documented in this encounter Visit Diagnoses Not on filedocumented in this encounter Care Teams Aircraft Shipping Checker Relationship Specialty Start Date End Date No, Physician PCP - General 04/03/17 06/09/17 Rinku Glover MD [address] [place] [address] PCP - General Internal Medicine 06/10/17 08/16/22 Ian Jaeger MD [address] [place] [address] PCP - General Emergency Medicine 08/17/22 documented as of this encounter
[2024-12-08] MEDS: ACETAMINOPHEN 325 MG TABLET 650 MG PO (22:35)
[2024-12-08] MEDS: TICAGRELOR 60 MG TABLET PO (23:36)
[2024-12-09] VITALS (7 sets, daily range): BP systolic 95–110; BP diastolic 45–79; PULSE 51–94; RESP 16–20; TEMP 36.1–36.6; O2SAT 95–99; BMI 26.6
[2024-12-09] MEDS: traMADol HCL (*CRX) 50 MG TABLET PO ×2 (01:55→14:03)
[2024-12-09] MEDS: ACETAMINOPHEN 325 MG TABLET 650 MG PO ×3 (04:24→23:38)
[2024-12-09 06:21] LABS: Hematocrit 30.6 % (42.0-52.0); Hemoglobin 8.8 g/dL (14.0-18.0); Immature Granulocyte Absolute 0.03 K/mm3 (0.00-0.031); Immature Granulocyte Percent A 1.7 % (0-0.5); Lymphocytes Absolute Auto 0.77 K/mm3 (0.9-3.2); Lymphocytes Percent Auto 43.8 % (18.3-44.2); Mean Corpuscular HGB Conc 28.8 g/dl (32-36); Mean Corpuscular Hemoglobin 24.2 pg (26-34); Mean Corpuscular Volume 84.1 fl (80-100); Mean Platelet Volume 9.5 fl (7.4-10.4); Monocytes Absolute Auto 0.2 K/mm3 (0.1-0.6); Monocytes Percent Auto 8.5 % (2.6-8.5); Neutrophils Absolute Auto 0.8 K/mm3 (1.3-6.7); Platelet Count Result 329 k/mm3 (150-375); Red Blood Count 3.64 M/mm3 (4.6-6.20); Red Cell Distribution Width 17.2 % (11.5-14.5)
[2024-12-09 06:31] LABS: White Blood Count 1.8 K/mm3 (4.5-10.0)
[2024-12-09 06:38] LABS: Alanine Aminotransferase 14 U/L (6-50); Albumin Level 3.3 g/dL (3.5-5.1); Alkaline Phosphatase 103 U/L (38-126); Anion Gap 10 mmol/L (4-12); Aspartate Amino Transferase 28 U/L (17-59); Bilirubin,Total 0.6 mg/dL (0.2-1.3); Blood Urea Nitrogen 21 mg/dL (9-20); Calcium 8.9 mg/dL (8.4-10.2); Carbon Dioxide 23 mmol/L (22-30); Chloride 104 mmol/L (98-107); Estimated CRCL calculation 81 ml/min; Estimated Glomerular Filt Rate > 60; Glucose 98 mg/dL (65-110); Potassium 3.6 mmol/L (3.4-5.0); Sodium 137 mmol/L (137-145)
[2024-12-09 07:02] LABS: Anisocytosis 1+; Hypochromasia 1+; Platelet Estimate Adequate (Adequate)
[2024-12-09 07:03] LABS: Schistocytes None Seen
[2024-12-09 08:13] LABS: Glucose Point of Care 137 mg/dl (65-105)
[2024-12-09] MEDS: METOPROLOL SUCCINATE EXT REL 12.5 MG TABCR PO (08:28)
[2024-12-09] MEDS: ASPIRIN 81 MG ENTERIC TABLET PO (08:28)
[2024-12-09] MEDS: PANTOPRAZOLE 40 MG TABLET PO ×2 (08:28→17:30)
[2024-12-09] MEDS: TICAGRELOR 60 MG TABLET PO ×2 (08:29→19:54)
[2024-12-09 08:37] LABS: Glucose Point of Care 92 mg/dl (65-105)
--- NOTE | 2024-12-09 10:03 | PHAR ---
HOME MED: REPATHA 140 MG/ML; INJECT 1 ML (140 MG) SUBQ EVERY 14 DAYS. INTACT CLOSED BOX. VERIFIED BY PHARMACY.
[2024-12-09 11:54] LABS: Glucose Point of Care 120 mg/dl (65-105)
--- NOTE | 2024-12-09 13:26 | P.PNIM_ITS ---
Progress Note: A&P Assessment and Plan (1) CHF (congestive heart failure): Code(s): I50.9 - Heart failure, unspecified Status: Acute Assessment and Plan: * Previous echo back in August 2023 shown an ejection fraction of 30% and grade 1 diastolic dysfunction * Is followed by Dr. Pratt * Echocardiogram showed severely reduced LV systolic function with an estimated EF of less than 15%, moderate aortic valve sclerosis * Cardiology consulted * Continue metoprolol * Will hold Lasix and Entresto for now * Initial proBNP 5440 * CXR was negative * Patient was given 1L NS while in the ER. Likely dry due to decreased oral intake. Will hold off on further fluids (2) Hypertension: Code(s): I10 - Essential (primary) hypertension Status: Acute Assessment and Plan: * Blood pressure ranging 92/70 to 101/52 * Will hold Entresto * Patient was given 1L NS while in the ER for hydration will hold off on further fluids (3) Coronary artery disease: Code(s): I25.10 - Atherosclerotic heart disease of [place] coronary artery without angina pectoris Status: Acute Assessment and Plan: * Continue Brilinta, aspirin * Patient is also on Repatha (4) Type 2 diabetes mellitus: Code(s): E11.9 - Type 2 diabetes mellitus without complications Status: Acute Assessment and Plan: * Blood sugar 139 * Hgb A1C 6.3 on 06/23/24 * Accu checks AC/HS * Moderate dose SSI ordered * hypoglycemic protocol in place * Metformin on hold * Diabetic diet ordered (5) GERD (gastroesophageal reflux disease): Qualifiers: Esophagitis presence: esophagitis presence not specified Qualified Code(s): K21.9 - Gastro-esophageal reflux disease without esophagitis Code(s): K21.9 - Gastro-esophageal reflux disease without esophagitis Status: Acute Assessment and Plan: * Continue Protonix 40 mg p.o. b.i.d. (6) Protein calorie malnutrition: Code(s): E46 - Unspecified protein-calorie malnutrition Status: Acute Assessment and Plan: * Dietitian consulted * Continue supplements t.i.d. * Encourage p.o. intake (7) Leukopenia: Code(s): D72.819 - Decreased white blood cell count, unspecified Status: Acute Assessment and Plan: * White blood cell count 1.8, absolute neutrophils 0.8 * Hematology/oncology consulted Time Spent With Patient Time with patient: 15 - 25 minutes Subjective Date/time seen: 12/09/24 13:26 Interval history: Interval history: This is an 79 year old male with a significant past medical history of Type 2 DM, hypertension, CHF with reduced EF, CAD with stent placement, [place], tobacco abuse who presented to the hospital with complaint of shortness of breath/dyspnea. Work up in the hospital included a chest x-ray which was negative. Initial labs shown a WBC 2.0, Hgb 9.6, anion gap 15, alkaline phosphate 127, proBNP 5440, TSH 0.887. UA was negative. Respiratory panel was negative for influenza A and B, RSV, COVID. EKG shown NSR with rate of 92 with left axis deviation, QTc 423. Patient was given 1L NS while in the ER. Subjective: Patient denies any new complaints today. Echocardiogram showing less than 15% EF which is worse from previous. White blood cell count 1.8, absolute neutrophils 0.8 today Review of Systems Review of Systems: All systems reviewed & are unremarkable except as noted in HPI and below Exam Narrative: General: In no acute distress, well nourished Cardiac: Normal S1 and S2. No murmur, gallops or friction rubs, peripheral pulses intact. Respiratory: Lungs clear to auscultation, no adventitious lung sounds, currently on room air Gastrointestinal: soft, non-distended, non-tender, normoactive bowel sounds. : voiding without difficulty. Neuro: Alert and oriented x3\ Objective Data Vital Signs Vital Signs: Vital Signs - 24 hr 12/08/24 14:44 12/08/24 14:45 12/08/24 14:45 Temperature Pulse Rate 76 77 80 Respiratory Rate 20 14 24 H Blood Pressure 82/62 L 82/62 L Pulse Oximetry 99 Oxygen Delivery 12/08/24 14:46 12/08/24 15:00 12/08/24 15:01 Temperature Pulse Rate 78 77 78 Respiratory Rate 22 H 21 H 24 H Blood Pressure 84/55 L 96/56 L Pulse Oximetry Oxygen Delivery 12/08/24 15:17 12/08/24 15:49 12/08/24 16:00 Temperature 97.0 F L Pulse Rate 77 79 75 Respiratory Rate 23 H 16 18 Blood Pressure 101/52 L 92/70 L 95/63 L Pulse Oximetry 98 96 99 Oxygen Delivery 12/08/24 20:00 12/08/24 20:35 12/09/24 00:28 Temperature 97.0 F L 97.3 F L Pulse Rate 72 94 Respiratory Rate 18 18 Blood Pressure 101/48 L 105/45 L Pulse Oximetry 97 96 Oxygen Delivery Room Air 12/09/24 06:00 12/09/24 08:00 12/09/24 08:28 Temperature 97.0 F L 97.6 F Pulse Rate 61 68 61 Respiratory Rate 18 18 Blood Pressure 95/52 L 101/52 L Pulse Oximetry 99 95 Oxygen Delivery 12/09/24 08:31 Temperature Pulse Rate Respiratory Rate Blood Pressure Pulse Oximetry Oxygen Delivery Room Air Intake/Output Intake/Output: Intake & Output 12/06/24 12/07/24 12/08/24 12/09/24 23:59 23:59 23:59 23:59 Intake Total 1240 1167 Output Total 400 1400 Balance 840 -233 Meds/Results Medications: Active Medications Generic Name Dose Route Start Last Admin Trade Name Freq PRN Reason Stop Dose Admin Acetaminophen 650 mg 12/08/24 14:43 12/09/24 04:24 Acetaminophen 325 Mg Tablet PO 650 mg Q4H PRN Administration Mild Pain (1-3) or Fever Aspirin 81 mg 12/09/24 09:00 12/09/24 08:28 Aspirin 81 Mg Enteric Tablet PO 81 mg DAILY KIMBERLEY Administration Dextrose 12.5 gm 12/08/24 14:52 Dextrose 50% 25 Gm/50 Ml Syringe IV PUSH PRN PRN Hypoglycemia Protocol Empagliflozin 10 mg 12/09/24 13:25 Empagliflozin 10 Mg Tablet PO DAILY KIMBERLEY Furosemide 40 mg 12/09/24 09:00 Furosemide 40 Mg Tablet PO DAILY KIMBERLEY Glucagon 1 mg 12/08/24 14:52 Glucagon For Inj 1 Mg Vial IM PRN PRN Hypoglycemia Protocol Glucose 15 gm 12/08/24 14:52 Glucose Oral Gel 15 Gm Of Glucse In 37.5 Gm Tube PO PRN PRN Hypoglycemia Protocol Dextrose 1,000 mls @ 100 mls/hr 12/08/24 14:52 Dextrose 5% 1,000 Ml IVPB PRN PRN Hypoglycemia Protocol Insulin Aspart 3 - 6 units 12/08/24 17:00 12/09/24 11:57 Insulin Aspart (*Bkc) 100 Units/Ml SUB-Q Not Given TIDWM [facility] Protocol Insulin Aspart 1 - 3 units 12/08/24 21:00 12/08/24 20:08 Insulin Aspart (*Bkc) 100 Units/Ml SUB-Q Not Given HS [facility] Protocol Latanoprost 1 drop 12/09/24 21:00 Latanoprost 0.005% Op Soln 2.5 Ml Btl EACH EYE HS [facility] Metoprolol Succinate 12.5 mg 12/09/24 09:00 12/09/24 08:28 Metoprolol Succinate Ext Rel 12.5 Mg Tabcr PO 12.5 mg DAILY KIMBERLEY Administration Nitroglycerin 0.4 mg 12/08/24 22:48 Nitroglycerin Sl 0.4 Mg Tablet SUBLINGUAL Q5M PRN Chest Pain Ondansetron HCl 4 mg 12/08/24 14:43 Ondansetron Inj 4 Mg/2 Ml Vial IV PUSH Q4H PRN Nausea Pantoprazole Sodium 40 mg 12/09/24 09:00 12/09/24 08:28 Pantoprazole 40 Mg Tablet PO 40 mg BID KIMBERLEY Administration Perflutren Lipid Microsphere 0 ml 12/08/24 14:50 Perflutren Lipid Microspheres 1.5 Ml Vial Diluted To 10 Ml Total Volume IV PUSH 12/11/24 14:50 ONCE PRN adequate visualization Protocol Ticagrelor 60 mg 12/08/24 22:50 12/09/24 08:29 Ticagrelor 60 Mg Tablet PO 60 mg Q12HR KIMBERLEY Administration Tramadol HCl 50 mg 12/08/24 22:48 12/09/24 01:55 Tramadol Hcl (*Crx) 50 Mg Tablet PO 50 mg BID PRN Administration pain 4-10 Radiology Results: ITS Impressions Chest X-Ray 12/08/24 10:57 IMPRESSION: 1: NO ACUTE CARDIOPULMONARY DISEASE. Labs Labs: Laboratory Results - last 24 hr 12/08/24 12/08/24 12/08/24 09:52 14:58 16:43 WBC RBC Hgb Hct MCV MCH MCHC RDW Plt Count MPV Immature Gran % (Auto) Neut % (Auto) Lymph % (Auto) Garfield % (Auto) Eos % (Auto) Baso % (Auto) Lymph # (Auto) Garfield # (Auto) Eos # (Auto) Baso # (Auto) Abs Immat Gran (auto) Absolute Neuts (auto) Absolute Nucleated RBC Band Neutrophils % Nucleated RBC % Platelet Estimate Hypochromasia Anisocytosis Schistocytes Sodium Potassium Chloride Carbon Dioxide Anion Gap BUN Creatinine Estim Creat Clear Calc Estimated GFR Glucose POC Capillary Glucose 103 Calcium Magnesium 2.0 Total Bilirubin AST ALT Alkaline Phosphatase Total Protein Albumin TSH 0.887 Urine Color Yellow Urine Appearance Clear Urine pH 5.5 Ur Specific [place] 1.015 Urine Protein Negative Urine Glucose (UA) Negative Urine Ketones Negative Ur Blood (Man) Negative Urine Nitrate Negative Urine Bilirubin Negative Urine Urobilinogen 0.2 Leukocyte Esterase Rfl Negative Influenza A (RT-PCR) Negative Influenza B (RT-PCR) Negative RSV (RT-PCR) Negative SARS-CoV-2 RNA (RT-PCR) Negative 12/08/24 12/09/24 12/09/24 19:54 05:53 08:34 WBC 1.8 L* RBC 3.64 L Hgb 8.8 L Hct 30.6 L MCV 84.1 MCH 24.2 L MCHC 28.8 L RDW 17.2 H Plt Count 329 MPV 9.5 Immature Gran % (Auto) 1.7 H Neut % (Auto) 46.0 Lymph % (Auto) 43.8 Garfield % (Auto) 8.5 Eos % (Auto) 0.0 Baso % (Auto) 0.0 L Lymph # (Auto) 0.77 L Garfield # (Auto) 0.2 Eos # (Auto) 0.0 Baso # (Auto) 0.0 Abs Immat Gran (auto) 0.03 Absolute Neuts (auto) 0.8 L Absolute Nucleated RBC 0.000 Band Neutrophils % Not Reportable Nucleated RBC % 0.0 Platelet Estimate Adequate Hypochromasia 1+ Anisocytosis 1+ Schistocytes None seen Sodium 137 Potassium 3.6 Chloride 104 Carbon Dioxide 23 Anion Gap 10 BUN 21 H D Creatinine 0.59 L Estim Creat Clear Calc 81 Estimated GFR > 60 Glucose 98 POC Capillary Glucose 137 H 92 Calcium 8.9 Magnesium Total Bilirubin 0.6 AST 28 ALT 14 Alkaline Phosphatase 103 Total Protein 7.0 Albumin 3.3 L TSH Urine Color Urine Appearance Urine pH Ur Specific [place] Urine Protein Urine Glucose (UA) Urine Ketones Ur Blood (Man) Urine Nitrate Urine Bilirubin Urine Urobilinogen Leukocyte Esterase Rfl Influenza A (RT-PCR) Influenza B (RT-PCR) RSV (RT-PCR) SARS-CoV-2 RNA (RT-PCR) 12/09/24 11:47 WBC RBC Hgb Hct MCV MCH MCHC RDW Plt Count MPV Immature Gran % (Auto) Neut % (Auto) Lymph % (Auto) Garfield % (Auto) Eos % (Auto) Baso % (Auto) Lymph # (Auto) [place]field # (Auto) Eos # (Auto) Baso # (Auto) Abs Immat Gran (auto) Absolute Neuts (auto) Absolute Nucleated RBC Band Neutrophils % Nucleated RBC % Platelet Estimate Hypochromasia Anisocytosis Schistocytes Sodium Potassium Chloride Carbon Dioxide Anion Gap BUN Creatinine Estim Creat Clear Calc Estimated GFR Glucose POC Capillary Glucose 120 H Calcium Magnesium Total Bilirubin AST ALT Alkaline Phosphatase Total Protein Albumin TSH Urine Color Urine Appearance Urine pH Ur Specific [place] Urine Protein Urine Glucose (UA) Urine Ketones Ur Blood (Man) Urine Nitrate Urine Bilirubin Urine Urobilinogen Leukocyte Esterase Rfl Influenza A (RT-PCR) Influenza B (RT-PCR) RSV (RT-PCR) SARS-CoV-2 RNA (RT-PCR) Quality VTE Prophylaxis VTE prophylaxis: pharmacologic ordered
[2024-12-09] MEDS: EMPAGLIFLOZIN 10 MG TABLET PO (14:04)
[2024-12-09 16:41] LABS: Glucose Point of Care 146 mg/dl (65-105)
--- NOTE | 2024-12-09 18:35 | PHAR ---
PT'S HOME MED REPATHA 140 MG/ML PRE-FILLED SYRINGE INJECTION VERIFIED BY PHARMACY
[2024-12-09] MEDS: EVOLOCUMAB 140 MG/ML SUB-Q (18:49)
[2024-12-09 19:17] LABS: Immature Reticulocyte Fraction 27.6 % (3.0-15.9); Reticulocyte Hemoglobin Conten 23.6 pg (28.2-36.6); Reticulocyte Percent 1.24 % (0.7-4.3); Reticulocytes Absolute 0.05 10^6/uL (0.02-0.10)
[2024-12-09] MEDS: LATANOPROST 0.005% OP SOLN 2.5 ML BTL 1 DROP EACH EYE (19:55)
[2024-12-09 20:13] LABS: Iron 20 ug/dL (49-181)
[2024-12-09 20:14] LABS: Lactate Dehydrogenase 132 U/L (120-246)
[2024-12-09 20:23] LABS: Percent Iron Saturation 9 % (20-50)
[2024-12-09 21:20] LABS: Folic Acid 8.4 ng/mL (2.76->20)
[2024-12-10 01:22] LABS: Glucose Point of Care 169 mg/dl (65-105)
[2024-12-10] MEDS: traMADol HCL (*CRX) 50 MG TABLET PO ×2 (03:56→17:35)
[2024-12-10 04:39] VITALS: BP 100/65; PULSE 78; RESP 18; TEMP 36.4; O2SAT 98
[2024-12-10 06:00] LABS: Eosinophils Percent Auto 0.5 % (0-4.4); Hematocrit 32.1 % (42.0-52.0); Hemoglobin 9.5 g/dL (14.0-18.0); Immature Granulocyte Absolute 0.01 K/mm3 (0.00-0.031); Immature Granulocyte Percent A 0.5 % (0-0.5); Lymphocytes Percent Auto 38.3 % (18.3-44.2); Mean Corpuscular HGB Conc 29.6 g/dl (32-36); Mean Corpuscular Hemoglobin 24.4 pg (26-34); Mean Corpuscular Volume 82.3 fl (80-100); Mean Platelet Volume 9.5 fl (7.4-10.4); Monocytes Absolute Auto 0.2 K/mm3 (0.1-0.6); Monocytes Percent Auto 10.4 % (2.6-8.5); Neutrophils Absolute Auto 0.9 K/mm3 (1.3-6.7); Neutrophils Percent Auto 50.3 % (45.5-73.1); Platelet Count Result 309 k/mm3 (150-375); Red Cell Distribution Width 17.3 % (11.5-14.5)
[2024-12-10 06:15] LABS: Alanine Aminotransferase 17 U/L (6-50); Albumin Level 3.3 g/dL (3.5-5.1); Alkaline Phosphatase 104 U/L (38-126); Anion Gap 8 mmol/L (4-12); Aspartate Amino Transferase 27 U/L (17-59); Bilirubin,Total 0.3 mg/dL (0.2-1.3); Blood Urea Nitrogen 13 mg/dL (9-20); Calcium 8.9 mg/dL (8.4-10.2); Carbon Dioxide 25 mmol/L (22-30); Chloride 103 mmol/L (98-107); Estimated CRCL calculation 90 ml/min; Estimated Glomerular Filt Rate > 60; Glucose 125 mg/dL (65-110); Potassium 3.7 mmol/L (3.4-5.0); Sodium 136 mmol/L (137-145)
[2024-12-10 07:08] LABS: White Blood Count 1.8 K/mm3 (4.5-10.0)
[2024-12-10 07:14] LABS: Anisocytosis 1+; Hypochromasia 1+; Platelet Estimate Adequate (Adequate); Schistocytes None Seen
--- NOTE | 2024-12-10 07:26 | P.CONCA_ITS ---
Assessment and Plan Assessment and plan (1) CHF (congestive heart failure): Code(s): I50.9 - Heart failure, unspecified Status: Acute (2) Coronary artery disease: Code(s): I25.10 - Atherosclerotic heart disease of [place] coronary artery without angina pectoris Status: Acute Plan 1. CAD 2. Chronic systolic heart failure ---NYHA class 2-3, stage C ---EF around 20% ---ischemic cardiomyopathy ---no ICD 3. Pancytopenia -Based on the history, examination and labs there is no evidence of recent ACS. I do not have the images from the prior echo to review. We will continue him on guideline directed medical therapy as able. He will follow with Dr. Pratt in his office where both the echoes can be reviewed. -I think he will benefit from [employer]ECUTIVE-D to help his LV systolic function. Will discuss with Dr. Pratt when he sees him as an outpatient -continue beta-victor m at current dose -agree to hold Entresto as his blood pressure is soft -consider SGLT2 inhibitor if there is no contraindication -consider lasix 20 mg every other day on discharge -consider further investigation of pancytopenia in (anemia, leukopenia) as per primary team Cardiology will sign off Please call us with any questions History of Present Illness History of Present Illness Consult date/time: 12/10/24 07:26 Reason For Visit: weakness,lowbp,heart failure Narrative: This is an 79 year old male with a significant past medical history of Type 2 DM, hypertension, coronary artery disease, ischemic cardiomyopathy sees Dr. Pratt as an outpatient. Was admitted with anemia and is receiving iron transfusion at the time of my evaluation. Cardiology was consulted because an echo was done which reported to be having an EF of less than 15%. This was a change from a prior reported EF of 30% in 2023. He denies any chest pain. Does endorse chronic stable dyspnea. No increased lower extremity swelling Has been sleeping on a recliner for the past several areas Echo reviewed personally by me shows left ventricular enlargement, EF of around 20% Review of Systems 2 Review of Systems: All systems reviewed & are unremarkable except as noted in HPI and below Constitutional: Constitutional: Reports no additional constitutional complaints ENT: Reports system reviewed and no additional complaints, except as documented Cardiovascular: Cardiovascular: Reports no additional cardiovascular complaints Respiratory: Respiratory: Reports no additional respiratory complaints Musculoskeletal: Musculoskeletal: Reports no additional musculoskeletal complaints [facility] Past Medical History Medical History Weakness Hypertension Type 2 diabetes mellitus Peptic ulcer Congestive heart failure Coronary artery disease Effusion of knee joint Left knee DJD Right knee DJD Upper respiratory tract infection Tendinitis of right rotator cuff Primary osteoarthritis of right shoulder Impingement syndrome of right shoulder Chronic right shoulder pain Myocardial infarction Rotator cuff tear arthropathy of right shoulder Lumbosacral spondylosis with radiculopathy Surgical History Surgical History History of coronary artery stent placement Family History Family History Other Acute myocardial infarction Breast cancer Social History Social History Social History: Surrogate medical decision maker: Alana Renee, friend. Code status: Full code. Smoking packs per day: 0.5 Smoking cigarettes per day: 10.0 Years smoked: 60 Smoking pack-years: 30.00 Smoking status: Current every day smoker Tobacco type: cigarettes Second hand tobacco smoke exposure: No Alcohol intake: never Substance use: current Substance use type: marijuana Last use: 12/07/24 Do You Feel Safe in your Home?: Yes Lack of Transportation: No Lack of Food: Never True Current Housing: I Have Housing Concerned About Future Housing: No Difficulty Paying Gas/Electric Bills: No Difficulty Paying for Meds: No Currently Unemployed: No Education: High School Diploma/GED Difficulty w/ Childcare or Family Care: No Living arrangements: alone Additional living arrangements comments: Lives in [place]. Occupation/Education: retired Additional occupation/education comments: [employer]. Spiritual care concerns: No Agree to blood products: Yes Meds Home Medications and Allergies Home Medications ?Medication ?Instructions ?Recorded ?Confirmed ?Type aspirin 81 mg tablet,delayed 81 mg PO DAILY 11/29/21 12/08/24 History release latanoprost 0.005 % eye drops 1 drp EACH EYE QPM 11/29/21 12/08/24 History metoprolol succinate 25 mg 12.5 mg PO DAILY 11/29/21 12/08/24 History tablet,extended release 24 hr nitroglycerin 0.4 mg sublingual 0.4 mg sublingual Q5M PRN Chest 11/29/21 12/08/24 History tablet Pain potassium chloride 20 mEq 20 meq PO DAILY 11/29/21 12/08/24 History tablet,extended release ticagrelor 60 mg tablet (Brilinta) 60 mg PO Q12H 11/29/21 12/08/24 History sacubitril 24 mg-valsartan 26 mg 1 tablet PO BID 09/04/22 12/08/24 History tablet (Entresto) albuterol sulfate 90 mcg/actuation See Rx Instructions .Route 01/07/24 12/08/24 Rx aerosol inhaler .COMPLEX #25.5 ea fluticasone 250 mcg-salmeterol 50 1 inh inhalation BID #180 ea 04/03/24 12/08/24 Rx mcg/dose blistr powdr for inhalation (Advair Diskus) glucosamine [id number] 1 tablet PO DAILY 05/19/24 12/08/24 History elise 1,500 mg-400 unit-100 mg tablet (Osteo Bi-Flex (5-Loxin)) evolocumab 140 mg/mL subcutaneous See Rx Instructions .Route .COMPLEX 06/09/24 12/08/24 History syringe (Repatha Syringe) fluconazole 100 mg tablet 100 mg PO BID 14 days #28 tabs 06/11/24 12/08/24 Rx (Diflucan) pantoprazole 40 mg tablet,delayed 40 mg PO BID #60 tabs 06/11/24 12/08/24 Rx release metformin 500 mg tablet See Rx Instructions .Route 09/11/24 12/08/24 Rx .COMPLEX #270 tabs tramadol 50 mg tablet 50 mg PO BID PRN pain #60 tabs 10/15/24 12/08/24 Rx furosemide 40 mg tablet See Rx Instructions .Route 11/02/24 12/08/24 Rx .COMPLEX #180 tabs Allergies Allergy/AdvReac Type Severity Reaction Status Date / Time carvedilol Allergy Unknown unknown Verified 12/08/24 09:47 lisinopril Allergy Unknown Swelling Verified 12/08/24 09:47 varenicline Allergy Unknown unknown Verified 12/08/24 09:47 Oecjqel-[id number] Reductase AdvReac Unknown Verified 12/08/24 09:47 Inhibitor Vital Signs Vital Signs - 24 hr 12/09/24 08:00 12/09/24 08:28 12/09/24 08:31 Temperature 36.4 C Pulse Rate 68 61 Respiratory Rate 18 Blood Pressure 101/52 L Pulse Oximetry 95 Oxygen Delivery Room Air Fraction of Inspired Oxygen 12/09/24 12:00 12/09/24 19:58 12/09/24 20:00 Temperature 36.6 C 36.5 C Pulse Rate 51 L 83 Respiratory Rate 16 16 Blood Pressure 110/58 L 103/79 Pulse Oximetry 98 96 Oxygen Delivery Room Air Fraction of Inspired Oxygen 12/09/24 20:36 12/10/24 04:39 Temperature 36.4 C Pulse Rate 77 78 Respiratory Rate 20 18 Blood Pressure 100/65 Pulse Oximetry 96 98 Oxygen Delivery Room Air Fraction of Inspired Oxygen 21 Exam 2 Narrative: General: In no acute distress, well nourished Cardiac: Normal S1 and S2. No murmur, gallops or friction rubs, peripheral pulses intact. Respiratory: Lungs clear to auscultation, no adventitious lung sounds, currently on room air Gastrointestinal: soft, non-distended, non-tender, normoactive bowel sounds. : voiding without difficulty. Neuro: Alert and oriented x3\ Results Labs and Meds 12/10/24 05:36 12/10/24 05:36 Lab results: Cardiac Enzymes 12/09/24 12/10/24 Range/Units 18:54 05:36 AST 27 (17-59) U/L Lactate Dehydrogenase 132 (120-246) U/L CBC 12/10/24 Range/Units 05:36 WBC 1.8 L* (4.5-10.0) K/mm3 RBC 3.90 L (4.6-6.20) M/mm3 Hgb 9.5 L (14.0-18.0) g/dL Hct 32.1 L (42.0-52.0) % Plt Count 309 (150-375) k/mm3 Lymph # (Auto) 0.70 L (0.9-3.2) K/mm3 [place] # (Auto) 0.2 (0.1-0.6) K/mm3 Eos # (Auto) 0.0 (0-0.3) K/mm3 Baso # (Auto) 0.0 (0.0-0.1) K/mm3 Comprehensive Metabolic Panel 12/10/24 Range/Units 05:36 Sodium 136 L (137-145) mmol/L Potassium 3.7 (3.4-5.0) mmol/L Chloride 103 (98-107) mmol/L Carbon Dioxide 25 (22-30) mmol/L BUN 13 D (9-20) mg/dL Creatinine 0.52 L (0.7-1.3) mg/dL Glucose 125 H (65-110) mg/dL Calcium 8.9 (8.4-10.2) mg/dL AST 27 (17-59) U/L ALT 17 (6-50) U/L Alkaline Phosphatase 104 (38-126) U/L Total Protein 7.0 (6.3-8.2) g/dL Albumin 3.3 L (3.5-5.1) g/dL Intake and Output 12/09/24 12/09/24 12/10/24 15:59 23:59 07:59 Intake Total 717 697 450 Output Total 410 1700 Balance 717 287 -1250 Intake: Oral 480 460 450 Oral Supplement 237 237 Output: Catheter Urine 410 1700 Urethral Catheter 410 1700
[2024-12-10 08:39] LABS: Glucose Point of Care 121 mg/dl (65-105)
[2024-12-10] MEDS: TICAGRELOR 60 MG TABLET PO ×2 (09:30→20:12)
[2024-12-10 09:31] VITALS: PULSE 79
[2024-12-10] MEDS: METOPROLOL SUCCINATE EXT REL 12.5 MG TABCR PO (09:31)
[2024-12-10] MEDS: ASPIRIN 81 MG ENTERIC TABLET PO (09:32)
[2024-12-10] MEDS: EMPAGLIFLOZIN 10 MG TABLET PO (09:32)
[2024-12-10] MEDS: ACETAMINOPHEN 325 MG TABLET 650 MG PO (09:32)
[2024-12-10] MEDS: PANTOPRAZOLE 40 MG TABLET PO ×2 (09:32→17:23)
[2024-12-10 09:35] VITALS: BP 107/77; PULSE 86; RESP 18
--- NOTE | 2024-12-10 10:55 | P.PNIM_ITS ---
Progress Note: A&P Assessment and Plan (1) CHF (congestive heart failure): Code(s): I50.9 - Heart failure, unspecified Status: Acute Assessment and Plan: * Previous echo back in August 2023 shown an ejection fraction of 30% and grade 1 diastolic dysfunction * Is followed by Dr. Pratt * Echocardiogram showed severely reduced LV systolic function with an estimated EF of less than 15%, moderate aortic valve sclerosis * Awaiting Cardiology recommendation * Continue metoprolol * Will hold Lasix and Entresto for now * Initial proBNP 5440 * CXR was negative * Patient was given 1L NS while in the ER. Likely dry due to decreased oral intake. (2) Hypertension: Code(s): I10 - Essential (primary) hypertension Status: Acute Assessment and Plan: * Blood pressure ranging 92/70 to 101/52 * Will hold Entresto * Patient was given 1L NS while in the ER for hydration will hold off on further fluids (3) Coronary artery disease: Code(s): I25.10 - Atherosclerotic heart disease of [place] coronary artery without angina pectoris Status: Acute Assessment and Plan: * Continue Brilinta, aspirin * Patient is also on Repatha (4) Type 2 diabetes mellitus: Code(s): E11.9 - Type 2 diabetes mellitus without complications Status: Acute Assessment and Plan: * Blood sugar 139 * Hgb A1C 6.3 on 06/23/24 * Accu checks AC/HS * Moderate dose SSI ordered * hypoglycemic protocol in place * Metformin on hold * Diabetic diet ordered (5) GERD (gastroesophageal reflux disease): Qualifiers: Esophagitis presence: esophagitis presence not specified Qualified Code(s): K21.9 - Gastro-esophageal reflux disease without esophagitis Code(s): K21.9 - Gastro-esophageal reflux disease without esophagitis Status: Acute Assessment and Plan: * Continue Protonix 40 mg p.o. b.i.d. (6) Protein calorie malnutrition: Code(s): E46 - Unspecified protein-calorie malnutrition Status: Acute Assessment and Plan: * Dietitian consulted * Continue supplements t.i.d. * Encourage p.o. intake * Added Megace for appetite stimulant (7) Leukopenia: Code(s): D72.819 - Decreased white blood cell count, unspecified Status: Acute Assessment and Plan: * White blood cell count 1.8, absolute neutrophils 0.8 * Awaiting hematology recommendations (8) Vitamin B 12 deficiency: Code(s): E53.8 - Deficiency of other specified B group vitamins Status: Acute Assessment and Plan: * Vitamin B12 200 * Vitamin B12 injection today * Will give vitamin B12 supplement starting tomorrow (9) Anemia: Code(s): D64.9 - Anemia, unspecified Status: Acute Assessment and Plan: * Hgb 9.5 * Iron 20, TIBC 211, ferritin 186, vitamin B12 200, folate 8.4 * Iron infusion ordered * Will start ferrous sulfate tomorrow Time Spent With Patient Time with patient: 15 - 25 minutes Subjective Date/time seen: 12/10/24 10:55 Interval history: Interval history: This is an 79 year old male with a significant past medical history of Type 2 DM, hypertension, CHF with reduced EF, CAD with stent placement, DE, tobacco abu se who presented to the hospital with complaint of shortness of breath/dyspnea. Work up in the hospital included a chest x-ray which was negative. Initial labs shown a WBC 2.0, Hgb 9.6, anion gap 15, alkaline phosphate 127, proBNP 5440, TSH 0.887. UA was negative. Respiratory panel was negative for influenza A and B, RSV, COVID. EKG shown NSR with rate of 92 with left axis deviation, QTc 423. Pat ient was given 1L NS while in the ER. Subjective: Patient denies any new complaints today. Labs reviewed. Review of Systems Review of Systems: All systems reviewed & are unremarkable except as noted in HPI and below Exam Narrative: General: In no acute distress, well nourished Cardiac: Normal S1 and S2. No murmur, gallops or friction rubs, peripheral pulses intact. Respiratory: Lungs clear to auscultation, no adventitious lung sounds, currently on room air Gastrointestinal: soft, non-distended, non-tender, normoactive bowel sounds. : voiding without difficulty. Neuro: Alert and oriented x3 Objective Data Vital Signs Vital Signs: Vital Signs - 24 hr 12/09/24 12:00 12/09/24 19:58 12/09/24 20:00 Temperature 97.8 F 97.7 F Pulse Rate 51 L 83 Respiratory Rate 16 16 Blood Pressure 110/58 L 103/79 Pulse Oximetry 98 96 Oxygen Delivery Room Air Fraction of Inspired Oxygen 12/09/24 20:36 12/10/24 04:39 12/10/24 07:39 Temperature 97.6 F Pulse Rate 77 78 Respiratory Rate 20 18 Blood Pressure 100/65 Pulse Oximetry 96 98 Oxygen Delivery Room Air Room Air Fraction of Inspired Oxygen 21 12/10/24 09:31 12/10/24 09:35 Temperature Pulse Rate 79 86 Respiratory Rate 18 Blood Pressure 107/77 Pulse Oximetry Oxygen Delivery Fraction of Inspired Oxygen Intake/Output Intake/Output: Intake & Output 12/07/24 12/08/24 12/09/24 12/10/24 23:59 23:59 23:59 23:59 Intake Total 1240 1864 450 Output Total 400 1810 1700 Balance 840 54 -1250 Meds/Results Medications: Active Medications Generic Name Dose Route Start Last Admin Trade Name Freq PRN Reason Stop Dose Admin Acetaminophen 650 mg 12/08/24 14:43 12/10/24 09:32 Acetaminophen 325 Mg Tablet PO 650 mg Q4H PRN Administration Mild Pain (1-3) or Fever Aspirin 81 mg 12/09/24 09:00 12/10/24 09:32 Aspirin 81 Mg Enteric Tablet PO 81 mg DAILY KIMBERLEY Administration Cyanocobalamin 1,000 mcg 12/10/24 10:54 Cyanocobalamin Inj 1,000 Mcg/Ml Vial IM 12/10/24 10:55 ONCE ONE Dextrose 12.5 gm 12/08/24 14:52 Dextrose 50% 25 Gm/50 Ml Syringe IV PUSH PRN PRN Hypoglycemia Protocol Empagliflozin 10 mg 12/09/24 13:25 12/10/24 09:32 Empagliflozin 10 Mg Tablet PO 10 mg DAILY KIMBERLEY Administration Ferrous Sulfate 325 mg 12/11/24 09:00 Ferrous Sulfate [address] PO BID KIMBERLEY Furosemide 40 mg 12/09/24 09:00 Furosemide 40 Mg Tablet PO DAILY KIMBERLEY Glucagon 1 mg 12/08/24 14:52 Glucagon For Inj 1 Mg Vial IM PRN PRN Hypoglycemia Protocol Glucose 15 gm 12/08/24 14:52 Glucose Oral Gel 15 Gm Of Glucse In 37.5 Gm Tube PO PRN PRN Hypoglycemia Protocol Dextrose 1,000 mls @ 100 mls/hr 12/08/24 14:52 Dextrose 5% 1,000 Ml IVPB PRN PRN Hypoglycemia Protocol Iron Sucrose 400 mg/ Iron 275 mls @ 78.571 mls/hr 12/10/24 10:53 Sucrose 100 mg/ Sodium IVPB 12/10/24 14:22 Chloride ONCE ONE Insulin Aspart 3 - 6 units 12/08/24 17:00 12/10/24 09:29 Insulin Aspart (*Bkc) 100 Units/Ml SUB-Q Not Given TIDWM KIMBERLEY Protocol Insulin Aspart 1 - 3 units 12/08/24 21:00 12/09/24 20:29 Insulin Aspart (*Bkc) 100 Units/Ml SUB-Q Not Given HS [facility] Protocol Latanoprost 1 drop 12/09/24 21:00 12/09/24 19:55 Latanoprost 0.005% Op Soln 2.5 Ml Btl EACH EYE 1 drop HS KIMBERLEY Administration Metoprolol Succinate 12.5 mg 12/09/24 09:00 12/10/24 09:31 Metoprolol Succinate Ext Rel 12.5 Mg Tabcr PO 12.5 mg DAILY KIMBERLEY Administration Nitroglycerin 0.4 mg 12/08/24 22:48 Nitroglycerin Sl 0.4 Mg Tablet SUBLINGUAL Q5M PRN Chest Pain Non-Formulary ( 0 each 12/09/24 18:40 12/09/24 18:49 Evolocumab 140 Mg/Ml SUB-Q 01/08/25 18:39 1 each Subcutaneous Q14D@0900 [facility] Administration Syringe) Ondansetron HCl 4 mg 12/08/24 14:43 Ondansetron Inj 4 Mg/2 Ml Vial IV PUSH Q4H PRN Nausea Pantoprazole Sodium 40 mg 12/09/24 09:00 12/10/24 09:32 Pantoprazole 40 Mg Tablet PO 40 mg BID KIMBERLEY Administration Perflutren Lipid Microsphere 0 ml 12/08/24 14:50 Perflutren Lipid Microspheres 1.5 Ml Vial Diluted To 10 Ml Total Volume IV PUSH 12/11/24 14:50 ONCE PRN adequate visualization Protocol Ticagrelor 60 mg 12/08/24 22:50 12/10/24 09:30 Ticagrelor 60 Mg Tablet PO 60 mg Q12HR KIMBERLEY Administration Tramadol HCl 50 mg 12/08/24 22:48 12/10/24 03:56 Tramadol Hcl (*Crx) 50 Mg Tablet PO 50 mg BID PRN Administration pain 4-10 Radiology Results: ITS Impressions Chest X-Ray 12/08/24 10:57 IMPRESSION: 1: NO ACUTE CARDIOPULMONARY DISEASE. Labs Labs: Laboratory Results - last 24 hr 12/09/24 12/09/24 12/09/24 11:47 16:19 18:54 WBC RBC Hgb Hct MCV MCH MCHC RDW Plt Count MPV Immature Gran % (Auto) Neut % (Auto) Lymph % (Auto) [place] % (Auto) Eos % (Auto) Baso % (Auto) Lymph # (Auto) [place] # (Auto) Eos # (Auto) Baso # (Auto) Abs Immat Gran (auto) Absolute Neuts (auto) Absolute Nucleated RBC Band Neutrophils % Nucleated RBC % Platelet Estimate Hypochromasia Anisocytosis Schistocytes Absolute Retic 0.05 Percent Retic 1.24 Immature Retic Fraction 27.6 H Retic Hgb Content 23.6 L Sodium Potassium Chloride Carbon Dioxide Anion Gap BUN Creatinine Estim Creat Clear Calc Estimated GFR Glucose POC Capillary Glucose 120 H 146 H Calcium Iron 20 L TIBC 211 L % Saturation 9 L Ferritin 186.00 Total Bilirubin AST ALT Alkaline Phosphatase Lactate Dehydrogenase 132 Total Protein Albumin Vitamin B12 200.0 L Folate 8.4 12/09/24 12/10/24 12/10/24 20:02 05:36 08:32 WBC 1.8 L* RBC 3.90 L Hgb 9.5 L Hct 32.1 L MCV 82.3 MCH 24.4 L MCHC 29.6 L RDW 17.3 H Plt Count 309 MPV 9.5 Immature Gran % (Auto) 0.5 Neut % (Auto) 50.3 Lymph % (Auto) 38.3 [place] % (Auto) 10.4 H Eos % (Auto) 0.5 Baso % (Auto) 0.0 L Lymph # (Auto) 0.70 L [place] # (Auto) 0.2 Eos # (Auto) 0.0 Baso # (Auto) 0.0 Abs Immat Gran (auto) 0.01 Absolute Neuts (auto) 0.9 L Absolute Nucleated RBC 0.000 Band Neutrophils % TNP Nucleated RBC % 0.0 Platelet Estimate Adequate Hypochromasia 1+ Anisocytosis 1+ Schistocytes None seen Absolute Retic Percent Retic Immature Retic Fraction Retic Hgb Content Sodium 136 L Potassium 3.7 Chloride 103 Carbon Dioxide 25 Anion Gap 8 BUN 13 D Creatinine 0.52 L Estim Creat Clear Calc 90 Estimated GFR > 60 Glucose 125 H POC Capillary Glucose 169 H 121 H Calcium 8.9 Iron TIBC % Saturation Ferritin Total Bilirubin 0.3 AST 27 ALT 17 Alkaline Phosphatase 104 Lactate Dehydrogenase Total Protein 7.0 Albumin 3.3 L Vitamin B12 Folate Quality VTE Prophylaxis VTE prophylaxis: pharmacologic ordered
[2024-12-10] MEDS: CYANOCOBALAMIN INJ 1,000 MCG/ML VIAL 1000 MCG IM (11:44)
[2024-12-10] MEDS: IRON SUCROSE COMPLEX 400 MG, IRON SUCROSE COMPLEX 100 MG in SODIUM CHLORIDE 0.9% IV 250 ML 78.57 MG IVPB (11:45)
[2024-12-10 11:47] LABS: Glucose Point of Care 146 mg/dl (65-105)
[2024-12-10 13:41] VITALS: BP 109/60; PULSE 75; RESP 18; TEMP 36.3; O2SAT 99
[2024-12-10 16:45] LABS: Glucose Point of Care 112 mg/dl (65-105)
[2024-12-10] MEDS: MEGESTROL ACETATE (*CHEMO) 40 MG TABLET PO ×2 (17:25→20:12)
[2024-12-10] MEDS: LATANOPROST 0.005% OP SOLN 2.5 ML BTL 1 DROP EACH EYE (20:12)
[2024-12-10 21:13] LABS: Haptoglobin 403 mg/dL (43-212)
[2024-12-10 22:06] VITALS: BP 111/61; PULSE 91; RESP 18; TEMP 36.3; O2SAT 97
[2024-12-11] MEDS: ACETAMINOPHEN 325 MG TABLET 650 MG PO (04:07)
[2024-12-11 04:28] LABS: Glucose Point of Care 164 mg/dl (65-105)
[2024-12-11 05:41] LABS: Hematocrit 30.1 % (42.0-52.0); Hemoglobin 8.8 g/dL (14.0-18.0); Immature Granulocyte Absolute 0.03 K/mm3 (0.00-0.031); Immature Granulocyte Percent A 1.5 % (0-0.5); Lymphocytes Absolute Auto 0.71 K/mm3 (0.9-3.2); Lymphocytes Percent Auto 36.6 % (18.3-44.2); Mean Corpuscular HGB Conc 29.2 g/dl (32-36); Mean Corpuscular Hemoglobin 24.3 pg (26-34); Mean Corpuscular Volume 83.1 fl (80-100); Monocytes Absolute Auto 0.3 K/mm3 (0.1-0.6); Monocytes Percent Auto 13.9 % (2.6-8.5); Neutrophils Absolute Auto 0.9 K/mm3 (1.3-6.7); Platelet Count Result 307 k/mm3 (150-375); Red Blood Count 3.62 M/mm3 (4.6-6.20); Red Cell Distribution Width 17.2 % (11.5-14.5)
[2024-12-11 05:57] LABS: Alanine Aminotransferase 17 U/L (6-50); Albumin Level 3.1 g/dL (3.5-5.1); Alkaline Phosphatase 101 U/L (38-126); Anion Gap 7 mmol/L (4-12); Aspartate Amino Transferase 23 U/L (17-59); Bilirubin,Total 0.4 mg/dL (0.2-1.3); Blood Urea Nitrogen 11 mg/dL (9-20); Calcium 8.8 mg/dL (8.4-10.2); Carbon Dioxide 25 mmol/L (22-30); Chloride 104 mmol/L (98-107); Estimated CRCL calculation 87 ml/min; Estimated Glomerular Filt Rate > 60; Glucose 143 mg/dL (65-110); Potassium 3.7 mmol/L (3.4-5.0); Sodium 136 mmol/L (137-145)
[2024-12-11 06:00] VITALS: BP 108/55; PULSE 79; RESP 18; TEMP 36.3; O2SAT 97
[2024-12-11 06:26] LABS: Anisocytosis 1+; Hypochromasia 1+; Platelet Estimate Adequate (Adequate); Schistocytes None Seen; White Blood Count 1.9 K/mm3 (4.5-10.0)
--- NOTE | 2024-12-11 08:02 | WPDONCCN ---
Assessment and Plan Assessment and plan (1) Anemia: Code(s): D64.9 - Anemia, unspecified Status: Acute Assessment and Plan: Normocytic anemia and leukopenia. Patient is the 79-year-old male came into the hospital with shortness of breath and found to have congestive heart failure with elevated proBNP. He denies any previous history of bone marrow disorders. His previous WBC count was normal in May. Patient had mild anemia in May of 2024. He denies any bleeding. Labs showed iron deficiency with vitamin B12 deficiency. This could be malnutrition/malabsorption. There is other possibility of bone marrow disorder like myelodysplastic syndrome in this age group. I will also order abdominal ultrasound to check for any underlying hepatosplenomegaly. Will check PIPE as well. Patient has received iron infusion and vitamin B12 injection. He will be discharged home on oral vitamin B12 and iron supplement. I will see him back in the office to repeat blood counts and B12 level. He may need to continue vitamin B12 injection in my office as well. Based on the repeat blood test and the office will decide about bone marrow biopsy. Have answered all the questions to patient's satisfaction. (2) Leukopenia: Code(s): D72.819 - Decreased white blood cell count, unspecified Status: Acute Assessment and Plan: ANC is 900. No need for Neupogen injection at this time as patient is asymptomatic without any signs of infection.. Continue to observe and follow-up in the office. HPI Data of Consult Date/Time: 12/11/24 08:02 Requesting Physician: Meredith Wang MD Primary Care Provider: Ian Jaeger MD Consult Narrative Narrative: Phill Monae is a 79 year old male with history of type 2 diabetes, congestive heart failure, hypertension, coronary artery disease status post stent placement came into the hospital with shortness of breath and dyspnea on exertion. I was asked to see him for leukopenia. Patient denies any previous history of bone marrow disorders. Labs on admission showed WBC count of 2.0 with hemoglobin of 9.6. Vitamin B12 level was low at 200 with iron of 20 with iron saturation 9%. Patient started vitamin B12 injection. Patient received IV iron infusion as well. Chest x-ray showed no acute cardiopulmonary disease. Review of previous labs showed normal WBC count of 4.7 in May of 2024. Patient had anemia with hemoglobin of 11.2 in May 2024 now has dropped down to 8.8. He denies any bleeding including melena hematochezia. Denies any weight loss. Other blood workup showed elevated proBNP. He has been currently managed for the congestive heart failure as well. Review of Systems Review of Systems: Review of system as per HPI otherwise negative [facility] Past Medical History Medical History Weakness Hypertension Type 2 diabetes mellitus Peptic ulcer Congestive heart failure Coronary artery disease Effusion of knee joint Left knee DJD Right knee DJD Upper respiratory tract infection Tendinitis of right rotator cuff Primary osteoarthritis of right shoulder Impingement syndrome of right shoulder Chronic right shoulder pain Myocardial infarction Rotator cuff tear arthropathy of right shoulder Lumbosacral spondylosis with radiculopathy Surgical History Surgical History History of coronary artery stent placement Family History Family History Other Acute myocardial infarction Breast cancer Social History Social History Social History: Surrogate medical decision maker: Alana Renee, friend. Code status: Full code. Smoking packs per day: 0.5 Smoking cigarettes per day: 10.0 Years smoked: 60 Smoking pack-years: 30.00 Smoking status: Current every day smoker Tobacco type: cigarettes Second hand tobacco smoke exposure: No Alcohol intake: never Substance use: current Substance use type: marijuana Last use: 12/07/24 Do You Feel Safe in your Home?: Yes Lack of Transportation: No Lack of Food: Never True Current Housing: I Have Housing Concerned About Future Housing: No Difficulty Paying Gas/Electric Bills: No Difficulty Paying for Meds: No Currently Unemployed: No Education: High School Diploma/GED Difficulty w/ Childcare or Family Care: No Living arrangements: alone Additional living arrangements comments: Lives in [place]. Occupation/Education: retired Additional occupation/education comments: [employer]. Spiritual care concerns: No Agree to blood products: Yes Meds Home Medications and Allergies Home Medications ?Medication ?Instructions ?Recorded ?Confirmed ?Type aspirin 81 mg tablet,delayed 81 mg PO DAILY 11/29/21 12/08/24 History release latanoprost 0.005 % eye drops 1 drp EACH EYE QPM 11/29/21 12/08/24 History metoprolol succinate 25 mg 12.5 mg PO DAILY 11/29/21 12/08/24 History tablet,extended release 24 hr nitroglycerin 0.4 mg sublingual 0.4 mg sublingual Q5M PRN Chest 11/29/21 12/08/24 History tablet Pain potassium chloride 20 mEq 20 meq PO DAILY 11/29/21 12/08/24 History tablet,extended release ticagrelor 60 mg tablet (Brilinta) 60 mg PO Q12H 11/29/21 12/08/24 History sacubitril 24 mg-valsartan 26 mg 1 tablet PO BID 09/04/22 12/08/24 History tablet (Entresto) albuterol sulfate 90 mcg/actuation See Rx Instructions .Route 01/07/24 12/08/24 Rx aerosol inhaler .COMPLEX #25.5 ea fluticasone 250 mcg-salmeterol 50 1 inh inhalation BID #180 ea 04/03/24 12/08/24 Rx mcg/dose blistr powdr for inhalation (Advair Diskus) glucosamine [id number] 1 tablet PO DAILY 05/19/24 12/08/24 History elise 1,500 mg-400 unit-100 mg tablet (Osteo Bi-Flex (5-Loxin)) evolocumab 140 mg/mL subcutaneous See Rx Instructions .Route .COMPLEX 06/09/24 12/08/24 History syringe (Repatha Syringe) fluconazole 100 mg tablet 100 mg PO BID 14 days #28 tabs 06/11/24 12/08/24 Rx (Diflucan) pantoprazole 40 mg tablet,delayed 40 mg PO BID #60 tabs 06/11/24 12/08/24 Rx release metformin 500 mg tablet See Rx Instructions .Route 09/11/24 12/08/24 Rx .COMPLEX #270 tabs tramadol 50 mg tablet 50 mg PO BID PRN pain #60 tabs 10/15/24 12/08/24 Rx furosemide 40 mg tablet See Rx Instructions .Route 11/02/24 12/08/24 Rx .COMPLEX #180 tabs Allergies Allergy/AdvReac Type Severity Reaction Status Date / Time carvedilol Allergy Unknown unknown Verified 12/08/24 09:47 lisinopril Allergy Unknown Swelling Verified 12/08/24 09:47 varenicline Allergy Unknown unknown Verified 12/08/24 09:47 [id number] Reductase AdvReac Unknown Verified 12/08/24 09:47 Inhibitor Vital Signs Vital Signs - 24 hr 12/10/24 09:31 12/10/24 09:35 12/10/24 13:41 Temperature 36.3 C L Pulse Rate 79 86 75 Respiratory Rate 18 18 Blood Pressure 107/77 109/60 Pulse Oximetry 99 Oxygen Delivery 12/10/24 15:12 12/10/24 15:47 12/10/24 20:00 Temperature Pulse Rate Respiratory Rate Blood Pressure Pulse Oximetry Oxygen Delivery Room Air Room Air Room Air 12/10/24 22:06 12/11/24 06:00 Temperature 36.3 C L 36.3 C L Pulse Rate 91 79 Respiratory Rate 18 18 Blood Pressure 111/61 108/55 L Pulse Oximetry 97 97 Oxygen Delivery Exam Narrative: Lungs are clear to auscultation bilaterally Cardiovascular regular rate rhythm no murmurs Abdomen soft nontender nondistended Extremities no edema Results Labs 12/11/24 05:17 12/11/24 05:17 Labs: Short CBC 12/11/24 Range/Units 05:17 WBC 1.9 L* (4.5-10.0) K/mm3 Hgb 8.8 L (14.0-18.0) g/dL Hct 30.1 L (42.0-52.0) % Plt Count 307 (150-375) k/mm3 BMP 12/11/24 05:17 Sodium 136 L Potassium 3.7 Chloride 104 Carbon Dioxide 25 BUN 11 Creatinine 0.54 L Glucose 143 H Calcium 8.8 Liver Function 12/11/24 Range/Units 05:17 Total Bilirubin 0.4 (0.2-1.3) mg/dL AST 23 (17-59) U/L ALT 17 (6-50) U/L Alkaline Phosphatase 101 (38-126) U/L Albumin 3.1 L (3.5-5.1) g/dL
[2024-12-11 08:23] LABS: Glucose Point of Care 105 mg/dl (65-105)
[2024-12-11] MEDS: PANTOPRAZOLE 40 MG TABLET PO ×2 (09:10→18:03)
[2024-12-11] MEDS: MEGESTROL ACETATE (*CHEMO) 40 MG TABLET PO ×4 (09:10→20:14)
[2024-12-11] MEDS: ASPIRIN 81 MG ENTERIC TABLET PO (09:10)
[2024-12-11] MEDS: TICAGRELOR 60 MG TABLET PO ×2 (09:10→20:15)
[2024-12-11 09:11] VITALS: PULSE 80
[2024-12-11] MEDS: EMPAGLIFLOZIN 10 MG TABLET PO (09:11)
[2024-12-11] MEDS: CYANOCOBALAMIN 250 MCG TABLET PO (09:11)
[2024-12-11] MEDS: FERROUS SULFATE 325 MG TABLET DR PO ×2 (09:11→18:03)
[2024-12-11] MEDS: METOPROLOL SUCCINATE EXT REL 12.5 MG TABCR PO (09:11)
[2024-12-11] MEDS: traMADol HCL (*CRX) 50 MG TABLET PO ×2 (09:16→20:15)
[2024-12-11 11:55] LABS: Glucose Point of Care 144 mg/dl (65-105)
[2024-12-11 14:00] VITALS: BP 128/79; PULSE 105; RESP 16; TEMP 36.3; O2SAT 100
--- NOTE | 2024-12-11 14:43 | P.DS_ITS ---
DS: Admitting Diagnosis Discharge Date 12/11/24 DS: Discharge Diagnosis Discharge Diagnosis (1) CHF (congestive heart failure): Code(s): I50.9 - Heart failure, unspecified Status: Acute (2) Hypertension: Code(s): I10 - Essential (primary) hypertension Status: Acute (3) Coronary artery disease: Code(s): I25.10 - Atherosclerotic heart disease of [place] coronary artery without angina pectoris Status: Acute (4) Type 2 diabetes mellitus: Code(s): E11.9 - Type 2 diabetes mellitus without complications Status: Acute (5) GERD (gastroesophageal reflux disease): Qualifiers: Esophagitis presence: esophagitis presence not specified Qualified Code(s): K21.9 - Gastro-esophageal reflux disease without esophagitis Code(s): K21.9 - Gastro-esophageal reflux disease without esophagitis Status: Acute (6) Protein calorie malnutrition: Code(s): E46 - Unspecified protein-calorie malnutrition Status: Acute (7) Leukopenia: Code(s): D72.819 - Decreased white blood cell count, unspecified Status: Acute (8) Vitamin B 12 deficiency: Code(s): E53.8 - Deficiency of other specified B group vitamins Status: Acute (9) Anemia: Code(s): D64.9 - Anemia, unspecified Status: Acute DS: Summary Time Spent with Patient Time attestation: Total time spent providing and/or coordinating discharge services: Exam Narrative: General: In no acute distress, well nourished Cardiac: Normal S1 and S2. No murmur, gallops or friction rubs, peripheral pulses intact. Respiratory: Lungs clear to auscultation, no adventitious lung sounds, currently on room air Gastrointestinal: soft, non-distended, non-tender, normoactive bowel sounds. : voiding without difficulty. Neuro: Alert and oriented x3 DS: Data Data Completed and Pending Labs on day of discharge: Labs from last 24 hours 12/11/24 12/11/24 12/11/24 11:52 08:20 05:17 WBC 1.9 L* RBC 3.62 L Hgb 8.8 L Hct 30.1 L MCV 83.1 MCH 24.3 L MCHC 29.2 L RDW 17.2 H Plt Count 307 MPV 10.0 Immature Gran % (Auto) 1.5 H Neut % (Auto) 47.0 Lymph % (Auto) 36.6 [place] % (Auto) 13.9 H Eos % (Auto) 1.0 Baso % (Auto) 0.0 L Lymph # (Auto) 0.71 L [place] # (Auto) 0.3 Eos # (Auto) 0.0 Baso # (Auto) 0.0 Abs Immat Gran (auto) 0.03 Absolute Neuts (auto) 0.9 L Absolute Nucleated RBC 0.000 Band Neutrophils % Not Reportable Nucleated RBC % 0.0 Platelet Estimate Adequate Hypochromasia 1+ Anisocytosis 1+ Schistocytes None seen Haptoglobin Sodium 136 L Potassium 3.7 Chloride 104 Carbon Dioxide 25 Anion Gap 7 BUN 11 Creatinine 0.54 L Estim Creat Clear Calc 87 Estimated GFR > 60 Glucose 143 H POC Capillary Glucose 144 H 105 Calcium 8.8 Total Bilirubin 0.4 AST 23 ALT 17 Alkaline Phosphatase 101 Total Protein 7.0 Albumin 3.1 L PIPE Screen 12/11/24 12/10/24 12/10/24 05:15 19:51 16:43 WBC RBC Hgb Hct MCV MCH MCHC RDW Plt Count MPV Immature Gran % (Auto) Neut % (Auto) Lymph % (Auto) [place] % (Auto) Eos % (Auto) Baso % (Auto) Lymph # (Auto) [place] # (Auto) Eos # (Auto) Baso # (Auto) Abs Immat Gran (auto) Absolute Neuts (auto) Absolute Nucleated RBC Band Neutrophils % Nucleated RBC % Platelet Estimate Hypochromasia Anisocytosis Schistocytes Haptoglobin Sodium Potassium Chloride Carbon Dioxide Anion Gap BUN Creatinine Estim Creat Clear Calc Estimated GFR Glucose POC Capillary Glucose 164 H 112 H Calcium Total Bilirubin AST ALT Alkaline Phosphatase Total Protein Albumin PIPE Screen Pending 12/09/24 18:54 WBC RBC Hgb Hct MCV MCH MCHC RDW Plt Count MPV Immature Gran % (Auto) Neut % (Auto) Lymph % (Auto) [place] % (Auto) Eos % (Auto) Baso % (Auto) Lymph # (Auto) [place] # (Auto) Eos # (Auto) Baso # (Auto) Abs Immat Gran (auto) Absolute Neuts (auto) Absolute Nucleated RBC Band Neutrophils % Nucleated RBC % Platelet Estimate Hypochromasia Anisocytosis Schistocytes Haptoglobin 403 H Sodium Potassium Chloride Carbon Dioxide Anion Gap BUN Creatinine Estim Creat Clear Calc Estimated GFR Glucose POC Capillary Glucose Calcium Total Bilirubin AST ALT Alkaline Phosphatase Total Protein Albumin PIPE Screen Discharge Plan Discharge Attending physician on discharge: Asher Alexandre Consulting providers: Leora Joshua; Rui Ellsworth Discharging Clinician: Nora Mathew Anticipated Discharge Date/Time: 12/11/24 14:37 Patient Disposition: Home Activity: as tolerated Diet: as tolerated and heart healthy Discharge Instructions: * Follow-up with hematology in 2 weeks to review their workup * Continue taking vitamin B12 and ferrous sulfate as prescribed * Follow-up with Dr. Pratt in 2 weeks to review your echocardiogram * You were started on Jardiance for your heart failure. Keep taking this medication * Continue taking Megace for appetite stimulant Patient Instructions: Antibiotic Form, Heart Failure (DC) Patient Language: Vietnamese Stand Alone Forms: General Discharge Information Follow-up/Referrals: Rui Ellsworth MD [Physician] - 2 Weeks Jaime Pratt MD [Physician] - 2 Weeks Ian Jaeger MD [Primary Care Provider] - Keep Reg. Scheduled Appt. Discharge Medications: New Jardiance 10 mg Tablet 10 mg PO DAILY Qty: 30 0RF ferrous sulfate 325 mg (65 mg iron) Tablet,Delayed Release (Dr/Ec) 325 mg PO BID Qty: 60 0RF cyanocobalamin (vitamin B-12) [Vitamin B-12] 250 mcg Tablet 250 mcg PO QAM Qty: 30 0RF megestrol 40 mg Tablet 40 mg PO QID Qty: 120 0RF Continued aspirin 81 mg tablet,delayed release (DR/EC) 81 mg PO DAILY Patient Comments: on provided med list Brilinta 60 mg tablet 60 mg PO Q12H latanoprost 0.005 % drops 1 drp EACH EYE QPM metoprolol succinate 25 mg tablet extended release 24 hr 12.5 mg PO DAILY Patient Comments: on provided med list nitroglycerin 0.4 mg tablet, sublingual 0.4 mg sublingual Q5M PRN (Reason: Chest Pain) Rx Instructions: do not exceed 3 doses per episode potassium chloride 20 mEq tablet extended release 20 meq PO DAILY Entresto 24-26 mg tablet 1 tablet PO BID Patient Comments: on provided med list [id number] [Osteo Bi-Flex (5-Loxin)] 1,500-400-100 mg-unit-mg tablet 1 tablet PO DAILY Rx Instructions: give after food/meal Repatha Syringe 140 mg/mL syringe See Rx Instructions .ROUTE .COMPLEX Rx Instructions: 140 mg subcutaneously due 06/10/24 fluconazole [Diflucan] 100 mg Tablet 100 mg PO BID 14 Days Qty: 28 0RF pantoprazole 40 mg tablet,delayed release (DR/EC) 40 mg PO BID Qty: 60 0RF albuterol sulfate 90 mcg/actuation HFA aerosol inhaler See Rx Instructions .ROUTE .COMPLEX Qty: 25.5 2RF Dose Instruction: 2 PUFF INHALED EVERY 4 HOURS NEEDED FOR SHORTNESS OF BREATH OR WHEEZING Rx Instructions: 2 PUFF INHALED EVERY 4 HOURS NEEDED FOR SHORTNESS OF BREATH OR WHEEZING fluticasone propion-salmeterol [Advair Diskus] 250-50 mcg/dose blister with device 1 inh inhalation BID Qty: 180 3RF metformin 500 mg tablet See Rx Instructions .ROUTE .COMPLEX Qty: 270 2RF Dose Instruction: TAKE 2 TABLETS IN THE MORNING AND 1 TABLET IN THE EVENING Rx Instructions: TAKE 2 TABLETS IN THE MORNING AND 1 TABLET IN THE EVENING tramadol 50 mg tablet 50 mg PO BID PRN (Reason: pain) Qty: 60 2RF furosemide 40 mg tablet See Rx Instructions .ROUTE .COMPLEX Qty: 180 2RF Dose Instruction: TAKE 1 TABLET BY MOUTH TWICE A DAY Rx Instructions: TAKE 1 TABLET BY MOUTH TWICE A DAY Date of admission: 12/09/24 16:23 Primary Care Provider: Ian Jaeger Admitting Provider: Meredith Wang Attending physician on admission: Meredith Wang Condition: Improved Quality VTE Prophylaxis VTE prophylaxis: pharmacologic ordered
--- NOTE | 2024-12-11 16:39 | P.PNIM_ITS ---
Progress Note: A&P Assessment and Plan (1) CHF (congestive heart failure): Code(s): I50.9 - Heart failure, unspecified Status: Acute Assessment and Plan: * Previous echo back in August 2023 shown an ejection fraction of 30% and grade 1 diastolic dysfunction * Is followed by Dr. Pratt * Echocardiogram showed severely reduced LV systolic function with an estimated EF of less than 15%, moderate aortic valve sclerosis * Cardiology would like to follow up with patient on an outpatient basis for his reduced EF * Continue metoprolol * Will continue Lasix and Entresto * Initial proBNP 5440 * CXR was negative * Patient was given 1L NS while in the ER. Likely dry due to decreased oral intake. (2) Hypertension: Code(s): I10 - Essential (primary) hypertension Status: Acute Assessment and Plan: * Blood pressure ranging 92/70 to 101/52 * Will hold Entresto * Patient was given 1L NS while in the ER for hydration will hold off on further fluids (3) Coronary artery disease: Code(s): I25.10 - Atherosclerotic heart disease of [place] coronary artery without angina pectoris Status: Acute Assessment and Plan: * Continue Brilinta, aspirin * Patient is also on Repatha (4) Type 2 diabetes mellitus: Code(s): E11.9 - Type 2 diabetes mellitus without complications Status: Acute Assessment and Plan: * Blood sugar 139 * Hgb A1C 6.3 on 06/23/24 * Accu checks AC/HS * Moderate dose SSI ordered * hypoglycemic protocol in place * Metformin on hold * Diabetic diet ordered (5) GERD (gastroesophageal reflux disease): Qualifiers: Esophagitis presence: esophagitis presence not specified Qualified Code(s): K21.9 - Gastro-esophageal reflux disease without esophagitis Code(s): K21.9 - Gastro-esophageal reflux disease without esophagitis Status: Acute Assessment and Plan: * Continue Protonix 40 mg p.o. b.i.d. (6) Protein calorie malnutrition: Code(s): E46 - Unspecified protein-calorie malnutrition Status: Acute Assessment and Plan: * Dietitian consulted * Continue supplements t.i.d. * Encourage p.o. intake * Added Megace for appetite stimulant (7) Leukopenia: Code(s): D72.819 - Decreased white blood cell count, unspecified Status: Acute Assessment and Plan: * White blood cell count 1.8, absolute neutrophils 0.8 * Hematology checking other anemia labs * PIPE pending * Ultrasound of the abdomen showed spleen in the upper limits of normal as well as gallbladder sludge * Patient will need hematology follow-up on outpatient basis (8) Vitamin B 12 deficiency: Code(s): E53.8 - Deficiency of other specified B group vitamins Status: Acute Assessment and Plan: * Vitamin B12 level 200 * Vitamin B12 injection today * Continue vitamin B12 supplement (9) Anemia: Code(s): D64.9 - Anemia, unspecified Status: Acute Assessment and Plan: * Hgb 9.5 * Iron 20, TIBC 211, ferritin 186, vitamin B12 200, folate 8.4 * Iron infusion initially * Continue ferrous sulfate Time Spent With Patient Time with patient: 15 - 25 minutes Subjective Date/time seen: 12/11/24 16:39 Interval history: Interval history: This is an 79 year old male with a significant past medical history of Type 2 DM, hypertension, CHF with reduced EF, CAD with stent placement, [place], tobacco abuse who presented to the hospital with complaint of shortness of breath/dyspnea. Work up in the hospital included a chest x-ray which was negative. Initial labs shown a WBC 2.0, Hgb 9.6, anion gap 15, alkaline phosphate 127, proBNP 5440, TSH 0.887. UA was negative. Respiratory panel was negative for influenza A and B, RSV, COVID. EKG shown NSR with rate of 92 with left axis deviation, QTc 423. Patient was given 1L NS while in the ER. Subjective: Patient denies any new complaints today. Labs reviewed. Review of Systems Review of Systems: All systems reviewed & are unremarkable except as noted in HPI and below Exam Narrative: General: In no acute distress, well nourished Cardiac: Normal S1 and S2. No murmur, gallops or friction rubs, peripheral pulses intact. Respiratory: Lungs clear to auscultation, no adventitious lung sounds, currently on room air Gastrointestinal: soft, non-distended, non-tender, normoactive bowel sounds. : voiding without difficulty. Neuro: Alert and oriented x3 Objective Data Vital Signs Vital Signs: Vital Signs - 24 hr 12/10/24 20:00 12/10/24 22:06 12/11/24 06:00 Temperature 97.4 F L 97.4 F L Pulse Rate 91 79 Respiratory Rate 18 18 Blood Pressure 111/61 108/55 L Pulse Oximetry 97 97 Oxygen Delivery Room Air 12/11/24 09:10 12/11/24 09:11 12/11/24 14:00 Temperature 97.4 F L Pulse Rate 80 105 H Respiratory Rate 16 Blood Pressure 128/79 Pulse Oximetry 100 Oxygen Delivery Room Air Intake/Output Intake/Output: Intake & Output 12/08/24 12/09/24 12/10/24 12/11/24 23:59 23:59 23:59 23:59 Intake Total 1240 1864 1319 1434 Output Total 400 1810 3250 3100 Balance 840 59 -[phone] -[phone] Meds/Results Medications: Active Medications Generic Name Dose Route Start Last Admin Trade Name Freq PRN Reason Stop Dose Admin Acetaminophen 650 mg 12/08/24 14:43 12/11/24 04:07 Acetaminophen 325 Mg Tablet PO 650 mg Q4H PRN Administration Mild Pain (1-3) or Fever Aspirin 81 mg 12/09/24 09:00 12/11/24 09:10 Aspirin 81 Mg Enteric Tablet PO 81 mg DAILY [facility] Administration Cyanocobalamin 250 mcg 12/11/24 09:00 12/11/24 09:11 Cyanocobalamin 250 Mcg Tablet PO 250 mcg QAM [facility] Administration Dextrose 12.5 gm 12/08/24 14:52 Dextrose 50% 25 Gm/50 Ml Syringe IV PUSH PRN PRN Hypoglycemia Protocol Empagliflozin 10 mg 12/09/24 13:25 12/11/24 09:11 Empagliflozin 10 Mg Tablet PO 10 mg DAILY K[facility] Administration Ferrous Sulfate 325 mg 12/11/24 09:00 12/11/24 09:11 Ferrous Sulfate [address] PO 325 mg BID K[facility] Administration Furosemide 40 mg 12/09/24 09:00 Furosemide 40 Mg Tablet PO DAILY K[facility]BER[facility] Glucagon 1 mg 12/08/24 14:52 Glucagon For Inj 1 Mg Vial IM PRN PRN Hypoglycemia Protocol Glucose 15 gm 12/08/24 14:52 Glucose Oral Gel 15 Gm Of Glucse In 37.5 Gm Tube PO PRN PRN Hypoglycemia Protocol Dextrose 1,000 mls @ 100 mls/hr 12/08/24 14:52 Dextrose 5% 1,000 Ml IVPB PRN PRN Hypoglycemia Protocol Insulin Aspart 3 - 6 units 12/08/24 17:00 12/11/24 11:52 Insulin Aspart (*Bkc) 100 Units/Ml SUB-Q Not Given TIDWM [facility] Protocol Insulin Aspart 1 - 3 units 12/08/24 21:00 12/10/24 20:02 Insulin Aspart (*Bkc) 100 Units/Ml SUB-Q Not Given HS [facility] Protocol Latanoprost 1 drop 12/09/24 21:00 12/10/24 20:12 Latanoprost 0.005% Op Soln 2.5 Ml Btl EACH EYE 1 drop HS [facility] Administration Megestrol Acetate 40 mg 12/10/24 17:00 12/11/24 13:10 Megestrol Acetate (*Chemo) 40 Mg Tablet PO 40 mg QID [facility] Administration Metoprolol Succinate 12.5 mg 12/09/24 09:00 12/11/24 09:11 Metoprolol Succinate Ext Rel 12.5 Mg Tabcr PO 12.5 mg DAILY [facility] Administration Nitroglycerin 0.4 mg 12/08/24 22:48 Nitroglycerin Sl 0.4 Mg Tablet SUBLINGUAL Q5M PRN Chest Pain Non-Formulary ( 0 each 12/09/24 18:40 12/09/24 18:49 Evolocumab 140 Mg/Ml SUB-Q 01/08/25 18:39 1 each Subcutaneous Q14D@0900 [facility] Administration Syringe) Ondansetron HCl 4 mg 12/08/24 14:43 Ondansetron Inj 4 Mg/2 Ml Vial IV PUSH Q4H PRN Nausea Pantoprazole Sodium 40 mg 12/09/24 09:00 12/11/24 09:10 Pantoprazole 40 Mg Tablet PO 40 mg BID [facility] Administration Ticagrelor 60 mg 12/08/24 22:50 12/11/24 09:10 Ticagrelor 60 Mg Tablet PO 60 mg Q12HR [facility] Administration Tramadol HCl 50 mg 12/08/24 22:48 12/11/24 09:16 Tramadol Hcl (*Crx) 50 Mg Tablet PO 50 mg BID PRN Administration pain 4-10 Radiology Results: ITS Impressions Chest X-Ray 12/08/24 10:57 IMPRESSION: 1: NO ACUTE CARDIOPULMONARY DISEASE. Abdomen Ultrasound 12/11/24 11:00 Impression: Spleen is upper limits of normal in size. 11 mm nonobstructing left renal stone. Gallbladder sludge. Labs Labs: Laboratory Results - last 24 hr 12/09/24 12/10/24 12/10/24 18:54 16:43 19:51 WBC RBC Hgb Hct MCV MCH MCHC RDW Plt Count MPV Immature Gran % (Auto) Neut % (Auto) Lymph % (Auto) [place] % (Auto) Eos % (Auto) Baso % (Auto) Lymph # (Auto) [place] # (Auto) Eos # (Auto) Baso # (Auto) Abs Immat Gran (auto) Absolute Neuts (auto) Absolute Nucleated RBC Band Neutrophils % Nucleated RBC % Platelet Estimate Hypochromasia Anisocytosis Schistocytes Haptoglobin 403 H Sodium Potassium Chloride Carbon Dioxide Anion Gap BUN Creatinine Estim Creat Clear Calc Estimated GFR Glucose POC Capillary Glucose 112 H 164 H Calcium Total Bilirubin AST ALT Alkaline Phosphatase Total Protein Albumin 12/11/24 12/11/24 12/11/24 05:17 08:20 11:52 WBC 1.9 L* RBC 3.62 L Hgb 8.8 L Hct 30.1 L MCV 83.1 MCH 24.3 L MCHC 29.2 L RDW 17.2 H Plt Count 307 MPV 10.0 Immature Gran % (Auto) 1.5 H Neut % (Auto) 47.0 Lymph % (Auto) 36.6 [place] % (Auto) 13.9 H Eos % (Auto) 1.0 Baso % (Auto) 0.0 L Lymph # (Auto) 0.71 L [place] # (Auto) 0.3 Eos # (Auto) 0.0 Baso # (Auto) 0.0 Abs Immat Gran (auto) 0.03 Absolute Neuts (auto) 0.9 L Absolute Nucleated RBC 0.000 Band Neutrophils % Not Reportable Nucleated RBC % 0.0 Platelet Estimate Adequate Hypochromasia 1+ Anisocytosis 1+ Schistocytes None seen Haptoglobin Sodium 136 L Potassium 3.7 Chloride 104 Carbon Dioxide 25 Anion Gap 7 BUN 11 Creatinine 0.54 L Estim Creat Clear Calc 87 Estimated GFR > 60 Glucose 143 H POC Capillary Glucose 105 144 H Calcium 8.8 Total Bilirubin 0.4 AST 23 ALT 17 Alkaline Phosphatase 101 Total Protein 7.0 Albumin 3.1 L Quality VTE Prophylaxis VTE prophylaxis: pharmacologic ordered
[2024-12-11 16:46] LABS: Glucose Point of Care 91 mg/dl (65-105)
[2024-12-11] MEDS: SACUBITRIL/VALSARTAN 24-26 MG TABLET 1 TAB PO (18:03)
[2024-12-11] MEDS: MELATONIN 5 MG TABLET PO (20:14)
[2024-12-11] MEDS: LATANOPROST 0.005% OP SOLN 2.5 ML BTL 1 DROP EACH EYE (20:15)
[2024-12-11] MEDS: DICLOFENAC SODIUM 1% 100 GM GEL (*BKC) 1 APPLIC TOPICAL (20:15)
[2024-12-11 21:54] VITALS: BP 108/71; PULSE 91; RESP 18; TEMP 36.2; O2SAT 96
[2024-12-12 05:12] LABS: Glucose Point of Care 148 mg/dl (65-105)
[2024-12-12 05:48] LABS: Eosinophils Percent Auto 0.9 % (0-4.4); Hematocrit 31.9 % (42.0-52.0); Hemoglobin 9.2 g/dL (14.0-18.0); Immature Granulocyte Absolute 0.05 K/mm3 (0.00-0.031); Immature Granulocyte Percent A 2.3 % (0-0.5); Mean Corpuscular HGB Conc 28.8 g/dl (32-36); Mean Corpuscular Hemoglobin 24.1 pg (26-34); Mean Corpuscular Volume 83.7 fl (80-100); Mean Platelet Volume 9.8 fl (7.4-10.4); Monocytes Absolute Auto 0.3 K/mm3 (0.1-0.6); Monocytes Percent Auto 15.7 % (2.6-8.5); Neutrophils Percent Auto 44.1 % (45.5-73.1); Platelet Count Result 328 k/mm3 (150-375); Red Blood Count 3.81 M/mm3 (4.6-6.20); Red Cell Distribution Width 17.5 % (11.5-14.5); White Blood Count 2.2 K/mm3 (4.5-10.0)
[2024-12-12 06:00] VITALS: BP 111/60; PULSE 107; RESP 18; TEMP 36.3; O2SAT 98
[2024-12-12 06:00] LABS: Alanine Aminotransferase 15 U/L (6-50); Albumin Level 3.2 g/dL (3.5-5.1); Alkaline Phosphatase 102 U/L (38-126); Anion Gap 7 mmol/L (4-12); Aspartate Amino Transferase 24 U/L (17-59); Bilirubin,Total 0.2 mg/dL (0.2-1.3); Blood Urea Nitrogen 10 mg/dL (9-20); Calcium 8.8 mg/dL (8.4-10.2); Carbon Dioxide 25 mmol/L (22-30); Chloride 104 mmol/L (98-107); Estimated CRCL calculation 95 ml/min; Estimated Glomerular Filt Rate > 60; Glucose 124 mg/dL (65-110); Potassium 3.8 mmol/L (3.4-5.0); Sodium 136 mmol/L (137-145)
[2024-12-12 06:18] LABS: Anisocytosis 1+; Hypochromasia 1+; Platelet Estimate Adequate (Adequate); Schistocytes None Seen
[2024-12-12 08:00] VITALS: PULSE 107; RESP 18; O2SAT 98
[2024-12-12] MEDS: ASPIRIN 81 MG ENTERIC TABLET PO (08:13)
[2024-12-12] MEDS: METOPROLOL SUCCINATE EXT REL 12.5 MG TABCR PO (08:13)
[2024-12-12] MEDS: TAMSULOSIN HCL 0.4 MG CAPSULE PO (08:13)
[2024-12-12] MEDS: SACUBITRIL/VALSARTAN 24-26 MG TABLET 1 TAB PO ×2 (08:13→18:32)
[2024-12-12] MEDS: PANTOPRAZOLE 40 MG TABLET PO ×2 (08:13→18:32)
[2024-12-12] MEDS: EMPAGLIFLOZIN 10 MG TABLET PO (08:13)
[2024-12-12] MEDS: TICAGRELOR 60 MG TABLET PO (08:14)
[2024-12-12] MEDS: CYANOCOBALAMIN 250 MCG TABLET PO (08:14)
[2024-12-12] MEDS: FERROUS SULFATE 325 MG TABLET DR PO ×2 (08:14→18:32)
[2024-12-12] MEDS: MEGESTROL ACETATE (*CHEMO) 40 MG TABLET PO ×3 (08:14→18:32)
[2024-12-12] MEDS: traMADol HCL (*CRX) 50 MG TABLET PO (08:14)
[2024-12-12 08:19] LABS: Glucose Point of Care 128 mg/dl (65-105)
[2024-12-12 12:27] LABS: Glucose Point of Care 194 mg/dl (65-105)
--- NOTE | 2024-12-12 12:50 | P.DS_ITS ---
DS: Admitting Diagnosis Discharge Date 12/12/24 Admitting Diagnosis Heart Failure, HTN, CAD, DM2, GERD, Malnutrition, Leukopenia, B12 Deficiency, Anemia DS: Discharge Diagnosis Discharge Diagnosis (1) CHF (congestive heart failure): Code(s): I50.9 - Heart failure, unspecified Status: Acute Assessment and Plan: * Previous echo back in August 2023 shown an ejection fraction of 30% and grade 1 diastolic dysfunction * Is followed by Dr. Pratt * Echocardiogram showed severely reduced LV systolic function with an estimated EF of less than 15%, moderate aortic valve sclerosis * Cardiology would like to follow up with patient on an outpatient basis for his reduced EF * Continue metoprolol * Will continue Lasix and Entresto * Initial proBNP 5440 * CXR was negative * Patient was given 1L NS while in the ER. Likely dry due to decreased oral intake. 12/12/24: * Cardiology has consulted and will follow up with pt in the outpt setting. (2) Hypertension: Code(s): I10 - Essential (primary) hypertension Status: Acute Assessment and Plan: * Blood pressure ranging 92/70 to 101/52 * Will hold Entresto * Patient was given 1L NS while in the ER for hydration will hold off on further fluids 12/12/24: * Continue current meds. (3) Coronary artery disease: Code(s): I25.10 - Atherosclerotic heart disease of [place] coronary artery without angina pectoris Status: Acute Assessment and Plan: * Continue Brilinta, aspirin * Patient is also on Repatha 12/12/24: * Continue current meds (4) Type 2 diabetes mellitus: Code(s): E11.9 - Type 2 diabetes mellitus without complications Status: Acute Assessment and Plan: * Blood sugar 139 * Hgb A1C 6.3 on 06/23/24 * Accu checks AC/HS * Moderate dose SSI ordered * hypoglycemic protocol in place * Metformin on hold * Diabetic diet ordered 12/12/24: * Continue home medication regimen upon discharge. (5) GERD (gastroesophageal reflux disease): Qualifiers: Esophagitis presence: esophagitis presence not specified Qualified Code(s): K21.9 - Gastro-esophageal reflux disease without esophagitis Code(s): K21.9 - Gastro-esophageal reflux disease without esophagitis Status: Acute Assessment and Plan: * Continue Protonix 40 mg p.o. b.i.d. 12/12/24: * Continue home regimen upon discharge. (6) Protein calorie malnutrition: Code(s): E46 - Unspecified protein-calorie malnutrition Status: Acute Assessment and Plan: * Dietitian consulted * Continue supplements t.i.d. * Encourage p.o. intake * Added Megace for appetite stimulant 12/12/24: * Continue supplements and Megace upon discharge. (7) Leukopenia: Code(s): D72.819 - Decreased white blood cell count, unspecified Status: Acute Assessment and Plan: * White blood cell count 1.8, absolute neutrophils 0.8 * Hematology checking other anemia labs * PIPE pending * Ultrasound of the abdomen showed spleen in the upper limits of normal as well as gallbladder sludge * Patient will need hematology follow-up on outpatient basis 12/12/24: * Pt was evaluated by Hematology and will follow up as outpt in the office to consider further workup from there. (8) Vitamin B 12 deficiency: Code(s): E53.8 - Deficiency of other specified B group vitamins Status: Acute Assessment and Plan: * Vitamin B12 level 200 * Vitamin B12 injection today * Continue vitamin B12 supplement 12/12/24 * Continue supplementation (9) Anemia: Code(s): D64.9 - Anemia, unspecified Status: Acute Assessment and Plan: * Hgb 9.5 * Iron 20, TIBC 211, ferritin 186, vitamin B12 200, folate 8.4 * Iron infusion initially * Continue ferrous sulfate 12/12/24: * Stable Hgb * Continue supplemental Iron. * Follow up with Hematology as outpt. DS: Summary Hospital Course Hospital Course: This is an 79 year old male with a significant past medical history of Type 2 DM, hypertension, CHF with reduced EF, CAD with stent placement, [place], tobacco abuse who presented to the hospital with complaint of shortness of breath/dyspnea. Work up in the hospital included a chest x-ray which was negative. Initial labs shown a WBC 2.0, Hgb 9.6, anion gap 15, alkaline phosphate 127, proBNP 5440, TSH 0.887. UA was negative. Respiratory panel was negative for influenza A and B, RSV, COVID. EKG shown NSR with rate of 92 with left axis deviation, QTc 423. Patient was given 1L NS while in the ER. He was consulted on by Cardiology and also Hematology and both of them will follow up w ith pt in the outpt setting for continued workup and further management. Pt without any further complaints today. His catheter is being removed and he is stable for discharge at this time. Status at Discharge Cognitive/behavioral status at discharge: At baseline Functional status at discharge: uses cane/walker Overall status at discharge: patient is progressing back to baseline Time Spent with Patient Time attestation: Total time spent providing and/or coordinating discharge services: Time spent: Greater than 30 minutes Specific discharge activities: Follow up, medications Exam Narrative: General: In no acute distress, well nourished Cardiac: Normal S1 and S2. No murmur, gallops or friction rubs, peripheral pulses intact. Respiratory: Lungs clear to auscultation, no adventitious lung sounds, currently on room air Gastrointestinal: soft, non-distended, non-tender, normoactive bowel sounds. : voiding without difficulty. Neuro: Alert and oriented x3 DS: Data Data Completed and Pending Completed studies during hospitalization: ITS Impressions Chest X-Ray 12/08/24 10:57 IMPRESSION: 1: NO ACUTE CARDIOPULMONARY DISEASE. Abdomen Ultrasound 12/11/24 11:00 Impression: Spleen is upper limits of normal in size. 11 mm nonobstructing left renal stone. Gallbladder sludge. Labs on day of discharge: Labs from last 24 hours 12/12/24 12/12/24 12/12/24 12:21 08:14 05:05 WBC 2.2 L RBC 3.81 L Hgb 9.2 L Hct 31.9 L MCV 83.7 MCH 24.1 L MCHC 28.8 L RDW 17.5 H Plt Count 328 MPV 9.8 Immature Gran % (Auto) 2.3 H Neut % (Auto) 44.1 L Lymph % (Auto) 37.0 [place] % (Auto) 15.7 H Eos % (Auto) 0.9 Baso % (Auto) 0.0 L Lymph # (Auto) 0.80 L [place] # (Auto) 0.3 Eos # (Auto) 0.0 Baso # (Auto) 0.0 Abs Immat Gran (auto) 0.05 H Absolute Neuts (auto) 1.0 L Absolute Nucleated RBC 0.000 Band Neutrophils % Not Reportable Nucleated RBC % 0.0 Platelet Estimate Adequate Hypochromasia 1+ Anisocytosis 1+ Schistocytes None seen Sodium 136 L Potassium 3.8 Chloride 104 Carbon Dioxide 25 Anion Gap 7 BUN 10 Creatinine 0.49 L Estim Creat Clear Calc 95 Estimated GFR > 60 Glucose 124 H POC Capillary Glucose 194 H 128 H Calcium 8.8 Total Bilirubin 0.2 AST 24 ALT 15 Alkaline Phosphatase 102 Total Protein 7.0 Albumin 3.2 L 12/11/24 12/11/24 21:34 16:43 WBC RBC Hgb Hct MCV MCH MCHC RDW Plt Count MPV Immature Gran % (Auto) Neut % (Auto) Lymph % (Auto) [place] % (Auto) Eos % (Auto) Baso % (Auto) Lymph # (Auto) [place] # (Auto) Eos # (Auto) Baso # (Auto) Abs Immat Gran (auto) Absolute Neuts (auto) Absolute Nucleated RBC Band Neutrophils % Nucleated RBC % Platelet Estimate Hypochromasia Anisocytosis Schistocytes Sodium Potassium Chloride Carbon Dioxide Anion Gap BUN Creatinine Estim Creat Clear Calc Estimated GFR Glucose POC Capillary Glucose 148 H 91 Calcium Total Bilirubin AST ALT Alkaline Phosphatase Total Protein Albumin Discharge Plan Discharge Attending physician on discharge: Asher Alexandre Consulting providers: Leora Joshua; Rui Ellsworth Discharging Clinician: Flaquita Herron Anticipated Discharge Date/Time: 12/11/24 14:37 Patient Disposition: Home Activity: as tolerated Diet: as tolerated and heart healthy Discharge Instructions: * Follow-up with hematology in 2 weeks to review their workup * Continue taking vitamin B12 and ferrous sulfate as prescribed * Follow-up with Dr. Pratt in 2 weeks to review your echocardiogram * You were started on Jardiance for your heart failure. Keep taking this medication * Continue taking Megace for appetite stimulant Per Care Coordination: [facility] [phone] has been arranged for physical and occupational therapy. They will call you regarding start of visit. Patient Instructions: Antibiotic Form, Heart Failure (DC) Patient Language: Bulgarian Stand Alone Forms: General Discharge Information Follow-up/Referrals: Rui Ellsworth MD [Physician] - 2 Weeks Jaime Pratt MD [Physician] - 2 Weeks Ian Jaeger MD [Primary Care Provider] - Keep Reg. Scheduled Appt. Discharge Medications: New Jardiance 10 mg Tablet 10 mg PO DAILY Qty: 30 0RF ferrous sulfate 325 mg (65 mg iron) Tablet,Delayed Release (Dr/Ec) 325 mg PO BID Qty: 60 0RF cyanocobalamin (vitamin B-12) [Vitamin B-12] 250 mcg Tablet 250 mcg PO QAM Qty: 30 0RF megestrol 40 mg Tablet 40 mg PO QID Qty: 120 0RF Continued aspirin 81 mg tablet,delayed release (DR/EC) 81 mg PO DAILY Patient Comments: on provided med list Brilinta 60 mg tablet 60 mg PO Q12H latanoprost 0.005 % drops 1 drp EACH EYE QPM metoprolol succinate 25 mg tablet extended release 24 hr 12.5 mg PO DAILY Patient Comments: on provided med list nitroglycerin 0.4 mg tablet, sublingual 0.4 mg sublingual Q5M PRN (Reason: Chest Pain) Rx Instructions: do not exceed 3 doses per episode potassium chloride 20 mEq tablet extended release 20 meq PO DAILY Entresto 24-26 mg tablet 1 tablet PO BID Patient Comments: on provided med list [id number] [Osteo Bi-Flex (5-Loxin)] 1,500-400-100 mg-unit-mg tablet 1 tablet PO DAILY Rx Instructions: give after food/meal Repatha Syringe 140 mg/mL syringe See Rx Instructions .ROUTE .COMPLEX Rx Instructions: 140 mg subcutaneously due 06/10/24 fluconazole [Diflucan] 100 mg Tablet 100 mg PO BID 14 Days Qty: 28 0RF pantoprazole 40 mg tablet,delayed release (DR/EC) 40 mg PO BID Qty: 60 0RF albuterol sulfate 90 mcg/actuation HFA aerosol inhaler See Rx Instructions .ROUTE .COMPLEX Qty: 25.5 2RF Dose Instruction: 2 PUFF INHALED EVERY 4 HOURS NEEDED FOR SHORTNESS OF BREATH OR WHEEZING Rx Instructions: 2 PUFF INHALED EVERY 4 HOURS NEEDED FOR SHORTNESS OF BREATH OR WHEEZING fluticasone propion-salmeterol [Advair Diskus] 250-50 mcg/dose blister with device 1 inh inhalation BID Qty: 180 3RF metformin 500 mg tablet See Rx Instructions .ROUTE .COMPLEX Qty: 270 2RF Dose Instruction: TAKE 2 TABLETS IN THE MORNING AND 1 TABLET IN THE EVENING Rx Instructions: TAKE 2 TABLETS IN THE MORNING AND 1 TABLET IN THE EVENING tramadol 50 mg tablet 50 mg PO BID PRN (Reason: pain) Qty: 60 2RF furosemide 40 mg tablet See Rx Instructions .ROUTE .COMPLEX Qty: 180 2RF Dose Instruction: TAKE 1 TABLET BY MOUTH TWICE A DAY Rx Instructions: TAKE 1 TABLET BY MOUTH TWICE A DAY Date of admission: 12/09/24 16:23 Primary Care Provider: Ian Jaeger Admitting Provider: Meredith Wang Attending physician on admission: Flaquita Herron Condition: Improved Quality VTE Prophylaxis VTE prophylaxis: pharmacologic ordered Hospitalist MIPS Heart Failure (Exclusion) Patient has history of Heart Transplant or Left Ventricular Assistive Device?: No IF YES, STOP HERE Heart Failure (Qualifier) Patient has current or prior documentation of LVEF less than or equal to 40%, or mod/servere depressed LVSF?: Yes IF NO, STOP HERE If Yes, Heart Failure (Qualifier) Patient was prescribed or already taking an Angiotensin-Converting Enzyme (DELICIA) Inhibitor, or Antiotensin Receptor [place] (ARB): Yes Patient was prescribed or already taking bisoprolol, carvedilol, or sustained release metoprolol succinate: Yes
[2024-12-12] MEDS: ACETAMINOPHEN 325 MG TABLET 650 MG PO (12:54)
[2024-12-12] MEDS: DICLOFENAC SODIUM 1% 100 GM GEL (*BKC) 1 APPLIC TOPICAL ×2 (12:55→18:32)
[2024-12-12 17:13] LABS: Glucose Point of Care 126 mg/dl (65-105)
--- NOTE | 2024-12-12 18:16 | PC.NURSE ---
Patient unable to void after De La Fuente removal, Joselin STARR notified. De La Fuente catheter placed. DC done, with De La Fuente in pace f/u with urology
[2024-12-16 17:33] LABS: Anti Nuclear Antibody Pattern Nuclear, Homogeneous
== END 2024-12-12 18:30 | disposition home or self-care (01) | DRG 815 ==
LOC: ANHED 09:40 → ANH3MED 15:25
PROVIDERS: Internal Medicine Hematology & Oncology; Nurse Practitioner Acute Care; Admitting Provider Internal Medicine; Emergency Provider Emergency Medicine; PCP Emergency Medicine; Visit Provider Nurse Practitioner Adult Health
DX: D72.819 Decreased white blood cell count, unspecified (principal); E46 Unspecified protein-calorie malnutrition; I50.22 Chronic systolic (congestive) heart failure; D64.9 Anemia, unspecified; E86.0 Dehydration; Z68.26 Body mass index [BMI] 26.0-26.9, adult; I11.0 Hypertensive heart disease with heart failure; I25.10 Atherosclerotic heart disease of native coronary artery without angina pectoris; E11.9 Type 2 diabetes mellitus without complications; E53.8 Deficiency of other specified B group vitamins; R53.1 Weakness; K21.9 Gastro-esophageal reflux disease without esophagitis; R33.9 Retention of urine, unspecified; F17.210 Nicotine dependence, cigarettes, uncomplicated; Z20.822 Contact with and (suspected) exposure to COVID-19; I25.2 Old myocardial infarction; Z79.82 Long term (current) use of aspirin; Z79.84 Long term (current) use of oral hypoglycemic drugs; Z79.899 Other long term (current) drug therapy; Z95.5 Presence of coronary angioplasty implant and graft
CPT/HCPCS: 36415; 71046; 76700; 80053; 81003; 82607; 82728; 82746; 82948; 83010; 83540; 83550; 83615; 83735; 83880; 84443; 85025; 85046; 86038; 86039; 87637; 93005; 93306; 96361; 96374; 97161; 97166; 97530; 97535; 99212; 99285; A9270; G0378; G0463; J1756; J3420; J7030; J7050

== ENCOUNTER 2024-12-26 13:07 | Emergency (ER) | payer MEDICARE, OTHER, SELFPAY ==
--- NOTE | ~2024-12-26 | CT_ITS ---
CT abdomen pelvis w con Ordering provider: Cinthia Mahajan History: 79 years Male with . low abd pain, blood in urine . Comparison: February 06, 2018 Technique: CT abdomen and pelvis with IV and without oral contrast. Automated exposure control and it erative reconstruction technique were employed. The dose-length product was 611.29 mGy-cm. 100 mL Omn ipaque 350 was given IV. Findings: VISUALIZED LOWER CHEST: Dependent atelectatic changes. UPPER ABDOMINAL ORGANS: Liver: Hepatomegaly. Gallbladder: Possible sludge with minute stones. Ultrasound evaluation advised. Spleen: Normal. Stomach/duodenum: Normal. Pancreas: Normal. Adrenals: A fat-containing lesion is seen in the left adrenal gland measuring 2.2 cm. Follow-up advis ed. Prominent right adrenal gland is also noted. Kidneys: Stone is seen in the left kidney lower pole measuring 5 mm. PELVIC ORGANS: The bladder is underfilled. De La Fuente's catheter is seen in the bladder. BOWEL AND MESENTERY: Colon: No evidence of diverticulitis. Fecal material is loaded in the colon. Normal appendix. Small Bowel: Normal. No obstruction. Peritoneum/mesentery: No free air or free fluid. No mesenteric lymphadenopathy. RETROPERITONEUM: Mild atheromatous disease of the abdominal aorta. No retroperitoneal lymphadenopat hy. MUSCULOSKELETAL: Superficial soft tissues: The superficial soft tissues are normal. Bones: Age appropriate degenerative changes of the spine. Avascular necrosis is seen in the right fem oral head. Dextroscoliosis. IMPRESSION: 1. No evidence of appendicitis, diverticulitis or intestinal obstruction. 2. Left renal stone. 3. Constipation. 4. Hepatomegaly. 5. Cholelithiasis versus gallbladder sludge. Ultrasound evaluation advised. Reviewed, dictated and finalized at location A.
--- OUTSIDE RECORDS SUMMARY | 2024-12-26 13:09 | XMS_ITS | Clinical Summary ---
Author Organization [facility] Address [facility] [place] [address] Care Team Providers Care Seed Trucker Name Role Phone Ebenezer Magallanes MD Unavailable [phone] Ian Jaeger MD Primary Care Provider [phone] Allergies Active Allergy Reactions Criticality Noted Date [...] (08/12/2022): Added automatically from request for surgery [id number] Bradycardia 02/26/2020 Ventricular bigeminy 02/26/2020 Gastroesophageal reflux disease 03/25/2019 Bone lesion 04/01/2018 Chronic systolic heart failure ([facility]) 05/29/2016 Overview (08/12/2022): Chronic systolic (congestive) heart failure Coronary artery disease of n ative artery of [place] heart with stable angina pectoris 05/29/2016 Overview (08/12/2022): Coronary artery disease involving [place] coronary artery of [place] heart without angina pectoris Obstructive sleep apnea syndrome 05/29/2016 Overview (08/12/2022): Obstructive sleep apnea Cardiomyopathy ([facility]) 04/26/2016 Overview (08/12/2022): Cardiomyopathy Dyspnea on exertion 04/26/2016 Overview (08/12/2022): Dyspnea on effort [id number] 03/23/2016 Hypertension associated with diabetes ([facility]) 05/18/2013 Overview (08/12/2022): Essential hypertension Diabetes mellitus ([facility]) 05/18/2013 Hyperlipidemia 05/18/2013 Overview (08/12/2022): Hyperlipidemia [...] place to sleep or slept in a care home (including now)? No 08/12/2022 Sex and Gender Information Value Date Recorded Sex Assigned at Not on file Legal Sex Male 8:36 PM CDT Gender Identity Not on file Sexual Orientation Not on file Last Filed Vital Signs Vital Sign Reading Time Taken Comments Blood Pressure 110/53 08/14/2022 11:18 AM TROUBLE OPERATOR Pulse 78 08/14/2022 11:18 AM TROUBLE OPERATOR Temperature 36.9 C (98.4 F) 08/14/2022 11:18 AM TROUBLE OPERATOR Respiratory Rate 16 08/14/2022 11:18 AM TROUBLE OPERATOR Oxygen Saturation 100% 08/14/2022 11:18 AM TROUBLE OPERATOR Inhaled Oxygen Concentration - - Weight 82 kg (180 lb 12.4 oz) 08/14/2022 3:28 AM TROUBLE OPERATOR Height 177.8 cm (5' 10 ) 08/12/2022 8:19 AM TROUBLE OPERATOR Body Mass Index 25.94 08/12/2022 8:19 AM TROUBLE OPERATOR Plan of Treatment Health Maintenance Due Date [...] Sánchez RN Medical Devices Implanted Type Area Infection Control Coordinator Device Identifier Shelf Expiration Date Model / Serial / Lot Clip Resolution 2.8mm 360 235cm 11mm Open - [id number] Implanted:Qty : 1 on 08/13/2022 by Landon Nickerson MD at [facility] Clip Implant N/A: Abdom[employer] [id number] 02/21/2025 [id number] / / [id number] Description:JE junction Procedures Procedure Name Priority Date/Time Associated Diagnosis Comments HEMOGLOBIN, GLYCOSYLATED Routine 08/12/2022 8:40 AM TROUBLE OPERATOR LIPID PANEL Routine 04/02/2019 from Last 3 Months or Most Recently Relevant to Health Maintenance Results * (ABNORMAL) HEMOGLOBIN, GLYCOSYLATED (08/12/2022 8:40 AM TROUBLE OPERATOR) HGB A1C 7.2(H) <5.7 % 08/12/2022 1:45 PM TROUBLE OPERATOR [facility] Comment: ADA GUIDELINES 2010 5.7 TO 6.4% INCREASED RISK OF DIABETES > OR = 6.5% CONSISTENT WITH DIABETES ESTIMATED AVG GLUCOSE 160 mg/dL 08/12/2022 1:45 PM TROUBLE OPERATOR [facility] 08/12/2022 8:40 AM TROUBLE OPERATOR us [facility] Final Result [facility] [address] [place] [address], * (ABNORMAL) LIPID PANEL (04/02/2019) CHOLESTEROL 173 [...] 3:43 PM 08/14/2022 6:12 PM Care Teams Seed Trucker Relationship Specialty Start Date End Date Ian Jaeger MD [address] [address] PCP - General INTERNAL MEDICINE 08/12/22 Ebenezer Magallanes MD [address] [place] [id number] Ernst Steel Melter CARDIOVASCULAR DISEASE 05/19/19
--- OUTSIDE RECORDS SUMMARY | 2024-12-26 13:09 | XMS_ITS | Referral Summary ---
Author Organization [place] [address] [address] [place] [phone] Care Team Providers Care Lace Inspector Name Role Phone Ian Jaeger MD Primary Care Provide r Encounters Date Type Department Care Team Description 12/25/2024 1:30 PM CDT Office Visit [facility] Cardiology [address] [place] [address] [place] [phone] Leeanna Jean Baptiste NP Ischemic cardiomyopathy (Primary Dx); Chronic systolic heart failure (HCC); Coronary artery disease involving [place] coronary artery of [place] heart without angina pectoris; PVC (premature ventricular contraction); Hospital discharge follow-up 11/20/2024 Telephone [facility] Cardiology [address] [place] [phone] Jaime Pratt MD 10/19/2024 10:45 AM CDT Office Visit [address] [phone] Jaime Pratt MD Coronary artery disease of [place] artery of [place] heart with stable angina pectoris (Primary Dx); Chronic systolic heart failure (HCC); Hyperlipidemia associated with type 2 diabetes mellitus (HCC); Ventricular bigeminy; Hypertension associated with diabetes (HCC) from Last 3 Months Allergies Active Allergy Reactions Criticality Noted Date Comments Carvedilol Anaphylaxis High Lisinopril Anaphylaxis,Unknown High 05/02/2016 Varenicline Unknown Medications glucosamine-D3 -Boswellia serr (OSTEO BI-FLEX, 5-LOXIN,) 1,500-400-100 mg-unit-mg tablet 0 0 04/26/20 16 Active albuterol HFA (PROAIR HFA) 90 mcg/actuation inhaler inhale 2 puff by inhalation route every 4 - 6 hours as needed 0 Inhaler 0 04/26/20 16 Active aspirin (ASPIR-81) 81 mg tablet take 1 Tablet by oral route every day 0 0 04/26/20 16 Active latanoprost (XALATAN) 0.005 % ophthalmic solution instill 1 drop by ophthalmic route every day into affected eye(s) in the evening 0 0 04/26/20 16 Active metFORMIN (GLUCOPHAGE) 500 mg tablet take 1 tablet by oral route 2 times every day 0 0 09/12/19 17 Active oxygenIndicati ons:Dyspnea Administer 2 L/min into each nostril as needed. Active traMADol (ULTRAM) 50 mg tablet Take 1 tablet (50 mg total) by mouth every 8 (eight) hours as needed 03/23/20 19 Active OneTouch Ultra Blue Test Strip strip USE 1 STRIP VIA METER THREE TIMES A DAY 06/08/20 20 Active nitroglycerin (NITROSTAT) 0.4 mg SL tabletIndicati ons:Coronary artery disease involving [place] coronary artery of [place] heart without angina pectoris Place 1 tablet (0.4 mg total) under the tongue every 5 (five) minutes as needed for chest pain 25 tablet 11 12/07/19 21 Active alirocumab (Praluent Pen) 75 mg/mL pen injector Inject 75 mg as directed every 14 (fourteen) days 6 mL 3 05/03/20 22 Active furosemide (LASIX) 40 mg tablet TAKE 1 TABLET BY MOUTH TWICE A DAY 180 tablet 2 06/10/20 23 Active loratadine (Claritin) 10 mg tablet Take 1 tablet (10 mg total) by mouth daily Active fluticasone propion-salmet Marine (ADVAIR DISKUS) 250-50 mcg/dose diskus inhaler Inhale 1 puff 2 (two) times a day 04/06/20 24 Active Brilinta 60 mg tabletIndicati ons:Coronary artery disease of [place] artery of [place] heart with stable angina pectoris TAKE 1 TABLET BY MOUTH TWICE A DAY 180 tablet 2 05/01/20 24 Active potassium chloride ER 20 mEq CR tablet TAKE 1 TABLET BY MOUTH EVERY DAY WITH FOOD 90 tablet 3 08/04/[address] (PROTONIX) 40 mg EC tabletIndicati ons:Gastroesop hageal reflux disease TAKE 1 TABLET BY MOUTH EVERY DAY 90 tablet 2 09/11/19 25 Active sacubitriL-dorota sartan (Entresto) 24-26 mg tablet TAKE 1 TABLET BY MOUTH TWICE A DAY 180 tablet 2 09/11/19 25 Active evolocumab (Repatha Syringe) syringe syringe INJECT 1 ML (140 MG TOTAL) UNDER THE SKIN EVERY 14 DAYS. 2 mL 3 10/31/19 25 Active metoprolol XL (TOPROL-XL) 25 mg extended release tablet TAKE 1 TABLET BY MOUTH EVERY DAY 90 tablet 2 12/24/19 25 Active Additional Information Patient taking differently: 12.5 mgoral Daily, Reported on 12/25/2024 oxyCODONE-acet aminophen (PERCOCET) 5-325 mg per tablet Take by mouth every 6 (six) hours as needed 12/22/19 25 Active ferrous sulfate 325 mg (65 mg of elemental iron) tablet Take 1 tablet (325 mg total) by mouth 2 (two) times a day 12/14/19 25 Active Jardiance 10 mg tablet Take 1 tablet (10 mg total) by mouth daily 12/13/19 25 Active metoprolol XL (TOPROL-XL) 25 mg extended release tablet TAKE 1 TABLET BY MOUTH EVERY DAY 90 tablet 2 04/06/20 24 025 Discontinued Active Problems Problem Noted Date Diagnosed Date PVC (premature ventricular contraction) 06/15/20 Overview (06/15/2020): Added automatically from request for surgery [id number] Preoperative cardiovascular examination 02/26/20 Bradycardia 02/26/2020 Ventricular bigeminy 02/26/2020 Gastroesophageal reflux disease 03/25/2019 Bone lesion 04/01/2018 Hyperlipidemia associated with type 2 diabetes m ellitus 06/10/2017 Hypertension associated with diabetes 06/10/2017 Coronary artery disease of n ative artery of [place] heart with stable angina pectoris 05/29/2016 Overview (11/15/2016): Coronary artery disease involving [place] coronary artery of [place] heart without angina pectoris Chronic systolic heart [...] on file Legal Sex Male 4:13 AM DESKTOP MANAGER Gender Identity Not on file Sexual Orientation Not on file Last Filed Vital Signs Vital Sign Reading Time Taken Comments Blood Pressure 92/60 12/25/2024 1:35 PM CDT Pulse 94 12/25/2024 1:35 PM CDT Temperature 36.5 C (97.7 F) 11/15/2020 11:14 AM CDT Respiratory Rate 19 07/25/2020 5:50 PM DESKTOP MANAGER Oxygen Saturation 99% 12/25/2024 1:35 PM CDT Inhaled Oxygen Concentration - - Weight 70.3 kg (155 lb) 12/25/2024 1:35 PM CDT Height 177.8 cm (5' 10 ) 12/25/2024 1:35 PM CDT Body Mass Index 22.24 12/25/2024 1:35 PM CDT Plan of Treatment Not on file Medical Devices Implanted Type Area Information Assurance Specialist Device Identifier Shelf Expiration Date Model / Serial / Lot [employer] [id number] System 6-12fr Mvp Venous Closure Vascade - [id number] Implanted:Qty: 1 on 07/25/2020 by Florentin Lopez MD at [facility] [employer] 05/03/2022 800-612C-1 0U / / [id number] [employer] [id number] System 6-12fr Mvp Venous Closure Vascade - [id number] Implanted:Qty: 1 on 07/25/2020 by Florentin Lopez MD at [facility] [employer] 05/10/2022 800-612C-1 0U / / [id number] [employer] [id number] System 6-12fr Mvp Venous Closure Vascade - [id number] Implanted:Qty: 1 on 07/25/2020 by Florentin Lopez MD at [facility] [employer] 05/10/2022 800-612C-1 0U / / [id number] [employer] [id number] System 6-12fr Mvp Venous Closure Vascade - [id number] Implanted:Qty: 1 on 07/25/2020 by Florentin Lopez MD at [facility] [employer] 05/03/2022 800-612C-1 0U / / [id number] Stent Chest Description: proximal LAD p er daughter in law Procedures Procedure Name Priority Date/Time Associated Diagnosis Comments LIPID PANEL Routine 07/12/2023 Coronary artery disease of [place] artery of [place] heart with stable angina pectoris from Last [...] Recently Relevant to Health Maintenance Insurance MEDICARE [facility] MEDICARE Care Teams Lace Inspector Relationship Specialty Start Date End Date Ian Jaeger MD [address] [place] [address] PCP - General Emergency Medicine 08/17/22
--- OUTSIDE RECORDS SUMMARY | 2024-12-26 13:09 | XMS_ITS | Clinical Summary ---
Author Organization [facility] [address] Address [address] [place] [address] Care Team Providers Care Sifter And Miller Name Role Phone Ian Jaeger MD Primary [...] mg SL tabletIndicati ons:Coronary artery disease involving [place] coronary artery of [place] heart without angina pectoris Place 1 tablet [...] 60 mg tabletIndicati ons:Coronary artery disease of [place] artery of [place] heart with stable angina pectoris TAKE 1 [...] (06/15/2020): Added automatically from request for surgery [id number] Preoperative cardiovascular examination 02/26/20 Bradycardia 02/26/2020 Ventricular bigeminy 02/26/2020 Gastroesophageal reflux disease 03/25/2019 Bone lesion 04/01/2018 Hyperlipidemia associated with type 2 diabetes m ellitus 06/10/2017 Hypertension associated with diabetes 06/10/2017 Coronary artery disease of n ative artery of [place] heart with stable angina pectoris 05/29/2016 Overview (11/15/2016): Coronary artery disease involving [place] coronary artery of [place] heart without angina pectoris Chronic systolic heart [...] Description 12/25/2024 1:30 PM CDT Office Visit [facility] Cardiology [address] [place] [address] Leeanna Jean Baptiste NP Ischemic cardiomyopathy (Primary Dx); Chronic systolic heart failure (HCC); Coronary artery disease involving [place] coronary artery of [place] heart without angina pectoris; PVC (premature ventricular contraction); Hospital discharge follow-up 11/20/2024 Telephone [facility] Cardiology [address] [place] [phone] Jaime Pratt MD 10/19/2024 10:45 AM CDT Office Visit [facility] Cardiology [address] [place] [address] Jaime Pratt MD Coronary artery disease of [place] artery of [place] heart with stable angina pectoris (Primary Dx); Chronic systolic heart failure (HCC); Hyperlipidemia associated with type 2 diabetes mellitus (HCC); Ventricular bigeminy; Hypertension associated with diabetes (HCC) from Last 3 Months Immunizations Immunization Administration Dates Next Due Influenza, Unspecified 05/12/2020 Surgical History Surgery Date Site/Laterality Comments CARDIAC CATHETERIZATION 08/12/2016 - 08/11/2017 Prox LAD stent, later attempt to reaccess was unsuccessful 2018 Medical History Medical History Date Comments Hx Other Medical HTN, h/o [place], , obesity, hyperlipidemia, dentures,; Comments: MAF 04/26/2016 [...] on file Legal Sex Male 4:13 AM PRODUCTION OPERATIONS 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..] Completed 08/12/2022 Medical Devices Implanted Type Area Adult Family Home Program Manager Device Identifier Shelf Expiration Date Model / Serial / Lot [employer] [id number] System 6-12fr Mvp Venous Closure Vascade - [id number] Implanted:Qty: 1 on 07/25/2020 by Florentin Lopez MD at [facility] [employer] 05/03/2022 800-612C-1 0U / / [id number] [employer] [id number] System 6-12fr Mvp Venous Closure Vascade - [id number] Implanted:Qty: 1 on 07/25/2020 by Florentin Lopez MD at [facility] [employer] 05/10/2022 800-612C-1 0U / / [id number] [employer] [id number] System 6-12fr Mvp Venous Closure Vascade - [id number] Implanted:Qty: 1 on 07/25/2020 by Florentin Lopez MD at [facility] [employer] 05/10/2022 800-612C-1 0U / / [id number] [employer] [id number] System 6-12fr Mvp Venous Closure Vascade - [id number] Implanted:Qty: 1 on 07/25/2020 by Florentin Lopez MD at [facility] [employer] 05/03/2022 800-612C-1 0U / / [id number] Stent Chest Description: proximal LAD p er daughter in law Procedures Procedure Name Priority Date/Time Associated Diagnosis Comments LIPID PANEL Routine 07/12/2023 Coronary artery disease of [place] artery of [place] heart with stable angina pectoris from Last [...] Relevant to Health Maintenance Insurance MEDICARE MEDICARE [facility] MEDICARE MEDICARE Care Teams Sifter And Miller Relationship Specialty Start Date End Date Ian Jaeger MD [address] [place] [address] PCP - General Emergency Medicine 08/17/22
--- OUTSIDE RECORDS SUMMARY | 2024-12-26 13:09 | XMS_ITS | Encounter Summary ---
Author Organization [facility] Healthcare Address [address] [place] [address] Care Team Providers Care Polymer Scientist Name Role Phone Ian Jaeger MD Primary Care Provide r Reason for Visit * Reason Comments Hospital Follow Up Encounter Details Date Type Department Care Team (Late st Contact Info) Description 12/25/2024 1:30 PM CDT Office Visit [facility] Medical Group Cardiology [address] [facility] [address] [place] [id number] Leeanna Jean Baptiste NP [address] [facility] [address] [place] [address] Ischemic cardiomyopathy (Primary Dx); Chronic systolic heart failure (HCC); Coronary artery disease involving council coronary artery of council heart without angina pectoris; PVC (premature ventricular contraction); Hospital discharge follow-up Social History Tobacco Use Types Packs/Day Years Used Date Smoking Tobacco: Every Day Cigarettes Smokeless Tobacco: Former Tobacco Cessation:Ready to Q uit: Not Asked; Counseling Given: Not Answered Alcohol Use Standard Drinks/Week Comments No 0 (1 standard drink = 0.6 oz pur e alcohol) Sex and Gender Information Value Date Recorded Sex Assigned at Not on file Legal Sex 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 Gender Identity Not on file Sexual Orientation Not on file documented as of this encounter Last Filed Vital Signs Vital Sign Reading Time Taken Comments Blood Pressure 92/60 12/25/2024 1:35 PM CDT Pulse 94 12/25/2024 1:35 PM CDT Temperature - - Respiratory Rate - - Oxygen Saturation 99% 12/25/2024 1:35 PM CDT Inhaled Oxygen Concentration - - Weight 70.3 kg (155 lb) 12/25/2024 1:35 PM CDT Height 177.8 cm (5' 10 ) 12/25/2024 1:35 PM CDT Body Mass Index 22.24 12/25/2024 1:35 PM CDT documented in this encounter Patient Instructions * Patient Instructions* Leeanna Jean Baptiste NP - 12/25/2024 1:30 PM CDT Reschedule the appointment with Chey العلي NP at [facility] Cardiology [phone] Talk about implanting a defibrillator because the heart function is weaker, Ejection Fraction of 15-20% documented in this encounter Progress Notes * Leeanna Jean Baptiste NP - 12/25/2024 1:30 PM CDT Images from the original note were not included. [facility] Medical Group Cardiology [address] [place] [address] Date of Visit: 12/25/2024 Patient ID: Phill Monae 1945 Chief Complaint Patient presents with Hospital Follow Up Phill Monae is a 79 y.o. male who is an established patient of Dr. Pratt with a history of CAD, ischemic cardiomyopathy, PVC ablation, returning to the office for hospital follow-up after he was treated for anemia. History of Present Illness: Phill Monae is a 79 y.o. male with Coronary artery disease and anterior ST elevation myocardial infarction. He does have an ischemic cardiomyopathy. Most recent cardiac catheterization found a 95-99%jailed diagonal branch stenosis. Wire was passed but balloon could not be passed through the stent struts. He has been treated medically to this point. Follow-up note 12/16/2017: He denies any significant exertional chest pain, shortness breath, syncope, presyncope, paroxysmal nocturnal dyspnea orthopnea, unusual edema or palpitations. He is tired alot and naps throughout the day often. Follow-up note 04/01/2018: Home blood pressure is 1/0 5-115 systolic. He did fall and fracture someribs back in January and a CT scan was performed showing diverticulosis as well as a sclerotic lesion in his femur. From a cardiac perspective he is doing okay and denies any unusual chest pain or shortness of breath. No syncope, presyncope, paroxysmal nocturnal dyspnea, orthopnea, edema or palpitations Follow-up note 09/02/19 21: He denies any chest pain, shortness breath, syncope, presyncope,orthopnea, significant edema, palpitations. He does have more energy and is feeling better since the ablation. Still has some paroxysmal nocturnal dyspnea. Follow-up with QUALITY ASSURANCE AUDITOR 12/06/2020: He reports feeling well. He denies chest pain. He admits he is not very active. His states he has shortness of breath with activity such as bathing and dressing, she notices him have PND and he will often leave the bed and sleep the rest of the night in the recliner. He uses oxygen p.r.n. at home. Follow-up note 02/13/2021: He denies any chest pain, shortness breath, syncope, presyncope, paroxysmal nocturnal dyspnea, orthopnea, edema or palpitations. Date of service 08/22/2021: He denies any chest pain, shortness breath, syncope, presyncope, paroxysmal nocturnal dyspnea, orthopnea, edema or palpitations. His states that he does quit breathing and she sometimes questions if he is ever going to start breathing again Date of service 02/28/2022: Complains of back pain and knee pain. He has changed his eating habits.He is not eating as much. He has lost 20 lb since last visit. He denies any chest pain, shortness breath, syncope, presyncope, paroxysmal nocturnal dyspnea orthopnea, edema or palpitations. Follow-up note 08/17/2022: He was recently hospitalized because of throwing up blood. He was found have a bleeding ulcer, diverticulosis and polyps. He did receive a blood transfusion. He was hypotensive and is isosorbide, spironolactone and tramadol has been stopped. He returns today feeling little bit better. He has regained a little bit of his appetite. Unfortunately he is still lost another 9lb since last visit. He denies any chest pain, shortness breath, syncope, presyncope, paroxysmal nocturnal dyspnea orthopnea, edema palpitations. Follow-up note 09/14/2022: At last visit his blood pressure was quite low and his isosorbide, spironolactone tramadol were stopped and his Entresto was cut in half. Since then he is feeling much better. He has more energy. He denies any chest pain, shortness breath, syncope, presyncope, paroxysmal nocturnal dyspnea orthopnea, edema palpitations. Follow-up note 01/31/2023: Overall has been doing pretty well. Energy level has improved. No chest pain, shortness breath, syncope, presyncope, paroxysmal nocturnal dyspnea orthopnea edema palpitations Office visit with QUALITY ASSURANCE AUDITOR 04/30/2023: Over the past month he is had increased shortness of breath with acough, sometimes coughing spells were quite heavy, a little bit of sputum maybe some mild sinus congestion. With a heavy coughing spell he would â€œfeel funnyâ€ but denies chest pain, syncope or near-syncope. However about 48 hours ago he started feeling significantly better. 12-lead ECG showed sinus arrhythmia with frequent PVCs, LAD, LAFB, rate 71 beats per minute. Follow-up note 06/07/2023: He has some paroxysmal nocturnal dyspnea but otherwise is doing okay. Hedid see Leeanna last month as he was more short of breath. Heart monitor showed frequent PVCs andPACs and he is scheduled to see Dr. Lopez again in June. He denies any chest pain, shortness breath, syncope, presyncope, edema or palpitations and actually feels pretty well at this point Follow-up note 10/10/2023: He feels okay. Does describe some paroxysmal nocturnal dyspnea. No chestpain, shortness breath, syncope, presyncope, orthopnea, edema palpitations Follow-up with QUALITY ASSURANCE AUDITOR 02/07/2024: He has no concerns today and states he is feeling well. He and his thinks his TORREZ has been unchanged. He sleeps in a recliner due to orthopnea. He denies swelling, chest pain, lightheadedness or syncope. Follow-up with QUALITY ASSURANCE AUDITOR 04/17/2024: He is here for routine follow-up and thinks he is doing well. His states that he gets short of breath easily when he ambulates. Patient thinks he breathes better when he takes Claritin regularly but his was concerned about him staying on it for too long. (SeeROS for pertinent negatives). Follow up with QUALITY ASSURANCE AUDITOR 07/17/2024: He returns for routine follow up accompanied by his . He had an ER visit about a month ago for edema, then went to his orthopedist and had fluid drawn off both knees. Just a few days after that he went back to the hospital and was admitted for 3 days for treatment of a yeast esophagitis and subsequent dehydration because he was having pain swallowing. His states he is now very weak and he has persistent edema for which she has increased his furosemide to 80 mg in the morning and 40 mg in the evening. Follow-up note 10/19/2024: He is feeling okay from a cardiac perspective but increasingly weak. No chest pains though, unusual shortness breath, syncope, presyncope, paroxysmal nocturnal dyspnea, orthopnea, edema, palpitations Hospital follow-up with QUALITY ASSURANCE AUDITOR 12/25/2024: He was admitted to [facility] on 12/09/2024 with anemia. He was given iron infusion. ProBNP was 5440. An echocardiogram showed decline in his LVEF to 15-20% (previous echo showed LVEF 30% in 2023) and Dr. Pagan saw him in consultation. The patient endorsed chronic stable dyspnea, no edema and no chest pain. He was advised to have optimization of GDM T as tolerated (Jardiance was added), consider FREIGHT RECEIVER D on an outpatient basis. He returns for follow-up today accompanied by his who is caring for him. He was quite weak at the time of discharge but is getting stronger. He says he recovers from his dyspnea quickly when he stops to rest. Systolic blood pressure at home has been 100-110 mmHg. He denies chest pain, syncope, near- syncope or edema. Medical History: Past Medical History: Diagnosis Date COPD (chronic obstructive pulmonary disease) (HCC) Coronary artery stenosis Coronary artery stenosis Diabetes mellitus (HCC) GERD (gastroesophageal reflux disease) HX OTHER MEDICAL HTN, h/o [place], , obesity, hyperlipidemia, dentures,; Comments: FELIPA 04/26/2016 - Hyperlipidemia Hypertension Past Surgical History: Procedure Laterality Date CARDIAC CATHETERIZATION 2016 Prox LAD stent, later attempt to reaccess was unsuccessful 2017 Social History Tobacco Use Smoking Status Every Day Current packs/day: 0.50 Types: Cigarettes Smokeless Tobacco Former Social History Tobacco Use Smoking status: Every Day Current packs/day: 0.50 Types: Cigarettes Smokeless tobacco: Former Substance and Sexual Activity Drug use: No Sexual activity: None Alcohol Use: Not on file Family History Problem Relation Age of Onset Other Father heart related; Cause of : heart related Sudden Cardiac Father Coronary artery disease Father Heart attack Father Heart failure Father Cancer Mother Cancer, unknown; Cause of : Cancer, unknown Other Sister Alive and well; Review of Systems Constitutional: Positive for malaise/fatigue and weight loss. Negative for weight gain. Cardiovascular: Positive for dyspnea on exertion. Negative for chest pain, leg swelling, near-syncope, orthopnea, palpitations, paroxysmal nocturnal dyspnea and syncope. Respiratory: Negative for cough and sleep disturbances due to breathing. Hematologic/Lymphatic: Negative for bleeding problem. Does not bruise/bleed easily. Neurological: Positive for weakness. Vital Signs: BP 92/60 (BP Location: Right arm, Patient Position: Sitting) Pulse 94 Ht 177.8 cm (5' 10 ) Wt70.3 kg (155 lb) SpO2 99% BMI 22.24 kg/mÂ² Physical Exam Constitutional: General: He is not in acute distress. Appearance: He is well-developed. Comments: Seated in wheelchair HENT: Head: Normocephalic and atraumatic. Eyes: General: No scleral icterus. Conjunctiva/sclera: Conjunctivae normal. Neck: Vascular: No JVD. Trachea: No tracheal deviation. Cardiovascular: Rate and Rhythm: Normal rate and regular rhythm. Occasional Extrasystoles are present. Heart sounds: Normal heart sounds. No murmur heard. Pulmonary: Effort: Pulmonary effort is normal. No respiratory distress. Breath sounds: Normal breath sounds. Musculoskeletal: Right lower leg: No edema. Left lower leg: No edema. Skin: General: Skin is warm and dry. Neurological: Mental Status: He is alert and oriented to person, place, and time. Psychiatric: Mood and Affect: Mood normal. Behavior: Behavior normal. Allergies Allergen Reactions Carvedilol Anaphylaxis Lisinopril Anaphylaxis and Unknown Varenicline Unknown Current Outpatient Medications: albuterol HFA (PROAIR HFA) 90 mcg/actuation inhaler, inhale 2 puff by inhalation route every 4 - 6 hours as needed, Disp: 0 Inhaler, Rfl: 0 alirocumab (Praluent Pen) 75 mg/mL pen injector, Inject 75 mg as directed every 14 (fourteen) days,Disp: 6 mL, Rfl: 3 aspirin (ASPIR-81) 81 mg tablet, take 1 Tablet by oral route every day, Disp: 0, Rfl: 0 Brilinta 60 mg tablet, TAKE 1 TABLET BY MOUTH TWICE A DAY, Disp: 180 tablet, Rfl: 2 evolocumab (Repatha Syringe) syringe syringe, INJECT 1 ML (140 MG TOTAL) UNDER THE SKIN EVERY 14 DAYS., Disp: 2 mL, Rfl: 3 ferrous sulfate 325 mg (65 mg of elemental iron) tablet, Take 1 tablet (325 mg total) by mouth 2 (two) times a day, Disp: , Rfl: fluticasone propion-salmeteroL (ADVAIR DISKUS) 250-50 mcg/dose diskus inhaler, Inhale 1 puff 2 (two) times a day, Disp: , Rfl: furosemide (LASIX) 40 mg tablet, TAKE 1 TABLET BY MOUTH TWICE A DAY, Disp: 180 tablet, Rfl: 2 hhvwlcyxdrg-K6-Jpljmnxqz serr (OSTEO BI-FLEX, 5-LOXIN,) 1,500-400-100 mg-unit-mg tablet, , Disp: 0,Rfl: 0 Jardiance 10 mg tablet, Take 1 tablet (10 mg total) by mouth daily, Disp: , Rfl: latanoprost (XALATAN) 0.005 % ophthalmic solution, instill 1 drop by ophthalmic route every day into affected eye(s) in the evening, Disp: 0, Rfl: 0 loratadine (Claritin) 10 mg tablet, Take 1 tablet (10 mg total) by mouth daily, Disp: , Rfl: metFORMIN (GLUCOPHAGE) 500 mg tablet, take 1 tablet by oral route 2 times every day, Disp: 0, Rfl: 0 metoprolol XL (TOPROL-XL) 25 mg extended release tablet, TAKE 1 TABLET BY MOUTH EVERY DAY (Patient taking differently: Take 0.5 tablets (12.5 mg total) by mouth daily), Disp: 90 tablet, Rfl: 2 nitroglycerin (NITROSTAT) 0.4 mg SL tablet, Place 1 tablet (0.4 mg total) under the tongue every 5 (five) minutes as needed for chest pain, Disp: 25 tablet, Rfl: 11 oxyCODONE-acetaminophen (PERCOCET) 5-325 mg per tablet, Take by mouth every 6 (six) hours as needed, Disp: , Rfl: pantoprazole DR (PROTONIX) 40 mg EC tablet, TAKE 1 TABLET BY MOUTH EVERY DAY, Disp: 90 tablet, Rfl:2 potassium chloride ER 20 mEq CR tablet, TAKE 1 TABLET BY MOUTH EVERY DAY WITH FOOD, Disp: 90 tablet, Rfl: 3 sacubitriL-valsartan (Entresto) 24-26 mg tablet, TAKE 1 TABLET BY MOUTH TWICE A DAY, Disp: 180 tablet, Rfl: 2 OneTouch Ultra Blue Test Strip strip, USE 1 STRIP VIA METER THREE TIMES A DAY, Disp: , Rfl: oxygen, Administer 2 L/min into each nostril as needed., Disp: , Rfl: traMADol (ULTRAM) 50 mg tablet, Take 1 tablet (50 mg total) by mouth every 8 (eight) hours as needed (Patient not taking: Reported on 12/25/2024), Disp: , Rfl: Lab Results Component Value Date POTASSIUM 4.0 07/22/2020 BUNSER 16 07/22/2020 CREATININE 1.01 07/22/2020 Lab Results Component Value Date WBC 8.8 07/22/2020 HGB 16.1 07/22/2020 HCT 46.5 07/22/2020 MCV 91.4 07/22/2020 No results found for this or any previous visit (from the past 4 hours). Lab Results Component Value Date POCCHOL 120 11/18/2018 POCHDL 34 11/18/2018 POCTRIG 122 11/18/2018 POCLDL 62 11/18/2018 POCNONHDL 86 11/18/2018 POCCHLPL 120 11/18/2018 Assessment: Diagnoses and all orders for this visit: Ischemic cardiomyopathy (Primary) Chronic systolic heart failure (HCC) Coronary artery disease involving council coronary artery of council heart without angina pectoris PVC (premature ventricular contraction) Hospital discharge follow-up Plan/Recommendations: Echocardiogram last year showed LVEF 30%. However echocardiogram during his recent hospitalization for anemia showed LVEF declined 15-20%. I explained the increased risk of SCD. Patient is interestedin pursuing defibrillator implantation if he is a candidate. I advised him to reschedule his follow-up appointment with EP at [facility] to discuss this further. Continue current medical therapy with Entresto, metoprolol, Jardiance, furosemide. He denies angina. Lipids are controlled. Continue aspirin, Brilinta, Repatha. He has a history of PVC ablation and follows with EP annually Dr. Lopez. Continue metoprolol. Keep the previously scheduled follow-up visit with Dr. Pratt in 2 months. Call us sooner with questions or concerns. 12/25/2024 JOSE Lozano- Nurse Practitioner with [facility] Cardiology This note is dictated and transcribed using [employer] Direct Software. Industrial Welder variancesmay occur. Despite proofreading, typographical errors may occur. documented in this encounter Plan of Treatment Not on file documented as of this encounter Visit Diagnoses Diagnosis Ischemic cardiomyopathy- Primary Other specified forms of chronic ischemic heart disease Chronic systolic heart failure (HCC) Chronic systolic heart failure Coronary artery disease involving council coronary artery of council heart without angina pectoris PVC (premature ventricular contraction) Other premature beats Hospital discharge follow-up Other follow-up examination documented in this encounter Historical Medications * This list may reflect changes made after this encounter. Jardiance 10 mg tablet Take 1 tablet (10 mg total) by mouth daily 12/12/2024 ferrous sulfate 325 mg (65 mg of elemental iron) tablet Take 1 tablet (325 mg total) by mouth 2 (two) times a day 12/13/2024 oxyCODONE-acetami nophen (PERCOCET) 5-325 mg per tablet Take by mouth every 6 (six) hours as needed 12/21/2024 added in this encounter Care Teams Polymer Scientist Relationship Specialty Start Date End Date Ian Jaeger MD [address] [place] [address] PCP - General Emergency Medicine 08/17/22 documented as of this encounter
--- OUTSIDE RECORDS SUMMARY | 2024-12-26 13:10 | XMS_ITS | Encounter Summary ---
Author Organization [facility] Medical Group Address [address] [facility] [address] [place] [address] Care Team Providers Care Lead Generation Specialist Name Role Phone No, Physician Primary Care Provider [phone] Rinku Glover MD Primary Care Provider [phone] Ian Jaeger MD Primary Care Provide r Encounter Details Date Type Department Care Team (Late st Contact Info) Description 08/23/2016 Orders Only [facility] ProviderAyala MD [address] [place] [address] Social History Tobacco Use Types Packs/Day Years Used Date Smoking Tobacco: Former Alcohol Use Standard Drinks/Week Comments No 0 (1 standard drink = 0.6 oz pur e alcohol) Sex and Gender Information Value Date Recorded Sex Assigned at Not on file 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
--- OUTSIDE RECORDS SUMMARY | 2024-12-26 13:10 | XMS_ITS | Clinical Summary ---
Author Organization [facility] Address [address] [place] [address] Care Team Providers Care Mental Health Aide Name Role Phone Unavailable Primary Care Provider Unavailabl e Social History Tobacco Use Types Packs/Day Years Used Date Smoking Tobacco: Never Assessed Sex and Gender Information Value Date Recorded Sex Assigned at Not on file Legal Sex Male 10:39 AM CDT Gender Identity Not on file Sexual Orientation Not on file Plan of Treatment Upcoming Encounters Date Type Department Care Team (Late st Contact Info) Description 03/25/2025 10:30 AM CDT Office Visit [facility] Oncology and Hematology - Jas [address] [facility] [address] [place] [address] Rui Ellsworth MD [address] [facility] [address] [place] [address] Health Maintenance Due Date Last Done Comments DTAP/TDAP/TD VACCINES (1 - Tdap) 1962 PNEUMOCOCCAL VACCINE 50+ YEARS (1 of 1 - PCV) 04/29/19 93 ZOSTER VACCINE (1 of 2) 1993 RSV VACCINE (60+ or ) (1 - 1-dose 75+ series) 2018 INFLUENZA VACCINE (#1) 2024 Insurance MEDICARE PART A AND B [facility]
[2024-12-26 13:36] VITALS: BP 100/59; PULSE 61; RESP 17; TEMP 36.8; O2SAT 100
--- NOTE | 2024-12-26 15:13 | ED.MALEGU ---
HPI - Male Genitourinary General Chief complaint: Urogenital-Male Stated complaint: bloody urine in catheter Time Seen by Provider: 12/26/24 15:13 Focused HPI: This is a 79 year old male that presents to the ER for blood in the catheter. Reports this started today. Patient takes Aspirin and Ticagrelor. Reports some lower abdominal pain. Reports the sanz catheter was placed on his recent admission for urinary retention due to enlarged prostate. Denies fevers, flank pain. GENERAL: Elderly, well-nourished, and in no acute distress. HEAD: Normocephalic, atraumatic. CHEST: Clear to auscultation. No respiratory distress. HEART: Regular rate and rhythm. NEURO: Alert and oriented x3. Patient screened in triage and initial orders placed. Additional care and disposition to be based upon diagnostic testing and treatment. Related Data Home Medications Medication Instructions Recorded Confirmed Last Taken Type aspirin 81 mg tablet,delayed 81 mg PO DAILY 11/29/21 12/08/24 Unknown History release latanoprost 0.005 % eye drops 1 drp EACH EYE QPM 11/29/21 12/08/24 Unknown History metoprolol succinate 25 mg 12.5 mg PO DAILY 11/29/21 12/08/24 Unknown History tablet,extended release 24 hr nitroglycerin 0.4 mg sublingual 0.4 mg sublingual Q5M PRN Chest 11/29/21 12/08/24 Unknown History tablet Pain potassium chloride 20 mEq 20 meq PO DAILY 11/29/21 12/08/24 Unknown History tablet,extended release ticagrelor 60 mg tablet (Brilinta) 60 mg PO Q12H 11/29/21 12/08/24 Unknown History sacubitril 24 mg-valsartan 26 mg 1 tablet PO BID 09/04/22 12/08/24 Unknown History tablet (Entresto) glucosamine [id number] 1 tablet PO DAILY 05/19/24 12/08/24 Unknown History elise 1,500 mg-400 unit-100 mg tablet (Osteo Bi-Flex (5-Loxin)) evolocumab 140 mg/mL subcutaneous See Rx Instructions .Route .COMPLEX 06/09/24 12/08/24 11/25/24 History syringe (Repatha Syringe) megestrol 40 mg tablet 20 mg PO QID 12/21/24 12/21/24 Unknown History Allergies Allergy/AdvReac Type Severity Reaction Status Date / Time carvedilol Allergy Unknown unknown Verified 12/21/24 10:10 lisinopril Allergy Unknown Swelling Verified 12/21/24 10:10 varenicline Allergy Unknown unknown Verified 12/21/24 10:10 [id number]-RFT-IvQ Reductase AdvReac Unknown Verified 12/21/24 10:10 Inhibitor Review of Systems Review of Systems: CONSTITUTIONAL: Denies fever GASTROINTESTINAL: Reports abdominal pain. Denies nausea, vomiting GENITOURINARY: Reports hematuria. All systems reviewed & are unremarkable except as noted in HPI and below PMFSH Past Medical History Medical History Weakness Hypertension Type 2 diabetes mellitus Peptic ulcer Congestive heart failure Coronary artery disease Effusion of knee joint Left knee DJD Right knee DJD Upper respiratory tract infection Tendinitis of right rotator cuff Primary osteoarthritis of right shoulder Impingement syndrome of right shoulder Chronic right shoulder pain Myocardial infarction Rotator cuff tear arthropathy of right shoulder Lumbosacral spondylosis with radiculopathy Surgical History Surgical History History of coronary artery stent placement Family History Family History Other Acute myocardial infarction Breast cancer Social History Social History Social History: Surrogate medical decision maker: Alana Renee, friend. Code status: Full code. Smoking packs per day: 0.25 Smoking cigarettes per day: 5.0 Years smoked: 60 Smoking pack-years: 15.00 Smoking status: Current every day smoker Tobacco type: cigarettes Second hand tobacco smoke exposure: No Alcohol intake: never Substance use: current Substance use type: marijuana Last use: 12/07/24 Do You Feel Safe in your Home?: Yes Lack of Transportation: No Lack of Food: Never True Current Housing: I Have Housing Concerned About Future Housing: No Difficulty Paying Gas/Electric Bills: No Difficulty Paying for Meds: No Currently Unemployed: No Education: High School Diploma/GED Difficulty w/ Childcare or Family Care: No Living arrangements: alone Additional living arrangements comments: Lives in [place]. Occupation/Education: retired Additional occupation/education comments: [employer]. Spiritual care concerns: No Agree to blood products: Yes Exam Narrative: GENERAL: Elderly, well-nourished, and in no acute distress. HEAD: Normocephalic, atraumatic. EYES: EOMI. CHEST: Clear to auscultation. No respiratory distress. No wheezes rales or rhonchi HEART: Regular rate and rhythm. No murmur heard. Normal peripheral pulses. ABDOMEN: Soft, nontender, nondistended, normal active bowel sounds. EXTREMITIES: Normal range of motion. No edema. SKIN: Warm, dry, no rash. NEURO: No focal deficits. Alert and oriented x3. PSYCH: Normal mood and affect Course Course Emergency Course: patient and family updated on workup. We spoke about further inpatient management versus close outpatient follow up. Patient would like to be discharged home. He has follow up with urology next week Vital Signs Vital signs: Vital Signs Temperature 98.3 F 12/26/24 13:36 Pulse Rate 61 12/26/24 13:36 Respiratory Rate 17 12/26/24 13:36 Blood Pressure 100/59 L 12/26/24 13:36 Pulse Oximetry 100 12/26/24 13:36 Temperature 98.3 F 12/26/24 18:30 Pulse Rate 79 12/26/24 20:53 Respiratory Rate 18 12/26/24 20:53 Blood Pressure 101/64 12/26/24 20:53 Pulse Oximetry 100 12/26/24 20:53 Oxygen Delivery Room Air 12/26/24 18:30 MDM - Male Genitourinary MDM Narrative Medical decision making narrative: Patient presents the emergency department for hematuria. He is afebrile and nontoxic appearing. His vitals are stable. CBC with white blood cell count of 2.1. Patient is currently being worked up by Hematology for this. Hemoglobin appears stable. Kidney function is normal. Urine with greater than 100 red blood cells and white blood cells. Also 1+ bacteria. This was sent for culture. Patient started on IV antibiotics. CT abdomen and pelvis shows a renal stone. patient and family updated on workup. We spoke about further inpatient management versus close outpatient follow up. Patient would like to be discharged home. He has follow up with urology next week Differential Diagnosis Differential diagnosis: Likely urinary tract infection and other (kidney stone) Lab Data Attestation: I reviewed the patient's lab results. 12/26/24 17:13 12/26/24 17:13 Labs: Lab Results 12/26/24 12/26/24 Range/Units 17:12 17:13 WBC 2.1 L (4.5-10.0) K/mm3 RBC 4.31 L (4.6-6.20) M/mm3 Hgb 10.5 L (14.0-18.0) g/dL Hct 36.6 L (42.0-52.0) % MCV 84.9 (80-100) fl MCH 24.4 L (26-34) pg MCHC 28.7 L (32-36) g/dl RDW 18.1 H (11.5-14.5) % Plt Count 340 (150-375) k/mm3 MPV 9.3 (7.4-10.4) fl Immature Gran % (Auto) 0.5 (0-0.5) % Neut % (Auto) 51.1 (45.5-73.1) % Lymph % (Auto) 39.8 (18.3-44.2) % Maury % (Auto) 8.1 (2.6-8.5) % Eos % (Auto) 0.5 (0-4.4) % Baso % (Auto) 0.0 L (0.2-1.2) % Lymph # (Auto) 0.84 L (0.9-3.2) K/mm3 Maury # (Auto) 0.2 (0.1-0.6) K/mm3 Eos # (Auto) 0.0 (0-0.3) K/mm3 Baso # (Auto) 0.0 (0.0-0.1) K/mm3 Abs Immat Gran (auto) 0.01 (0.00-0.031) K/mm3 Absolute Neuts (auto) 1.1 L (1.3-6.7) K/mm3 Absolute Nucleated RBC 0.000 (0.0-0.012) K/mm3 Band Neutrophils % Not Reportable Nucleated RBC % 0.0 (0.0-0.2) % Platelet Estimate Slightly increased (Adequate) Hypochromasia 1+ Anisocytosis 1+ Schistocytes None seen Sodium 138 (137-145) mmol/L Potassium 3.9 (3.4-5.0) mmol/L Chloride 103 (98-107) mmol/L Carbon Dioxide 24 (22-30) mmol/L Anion Gap 11 (4-12) mmol/L BUN 13 (9-20) mg/dL Creatinine 0.68 L (0.7-1.3) mg/dL Estim Creat Clear Calc 71 ml/min Estimated GFR > 60 (59 - ) Glucose 184 H (65-110) mg/dL Calcium 9.0 (8.4-10.2) mg/dL Total Bilirubin 0.4 (0.2-1.3) mg/dL AST 28 (17-59) U/L ALT 15 (6-50) U/L Alkaline Phosphatase 108 (38-126) U/L Total Protein 8.0 (6.3-8.2) g/dL Albumin 3.7 (3.5-5.1) g/dL Lipase 84 (23-300) U/L Urine Color Red H (Yellow) Urine Appearance Turbid H (Clear) Urine pH 6.0 (5.0-9.0) Ur Specific [place] 1.015 (1.001-1.035) Urine Protein 2+ H (Negative) mg/dL Urine Glucose (UA) 4+ H (Negative) mg/dL Urine Ketones Negative (Negative) mg/dL Ur Blood (Man) 4+ H (Negative) Urine Nitrate Negative (Negative) Urine Bilirubin Negative (Negative) Urine Urobilinogen 0.2 (<2.0) mg/dL Leukocyte Esterase Rfl Negative (Negative) BRYN/UL Urine RBC >100 H (0-2) /hpf Urine WBC >100 (0-3) /hpf Urine Bacteria 1+ H (None) /hpf Imaging Data Radiologist's impression: ITS Impressions Abdomen/Pelvis CT 12/26/24 20:47 IMPRESSION: 1. No evidence of appendicitis, diverticulitis or intestinal obstruction. 2. Left renal stone. 3. Constipation. 4. Hepatomegaly. 5. Cholelithiasis versus gallbladder sludge. Ultrasound evaluation advised. Critical Care Time Critical Care Time Critical Care Time: No Discharge Plan Discharge Clinical Impression: Acute UTI, Kidney stone on left side Patient Disposition: Home Condition: Stable Instructions: Antibiotic Form, Urinary Tract Infection in Men (ED) Additional Instructions: Return to the ER if you experience fever, abdominal pain with nausea and vomiting, you are unable to keep down liquids or solids, or any other symptoms that are concerning to you Take oral antibiotic as prescribed Follow up with Urology as scheduled Patient Language: Citizen Of [place] Prescriptions: New cefdinir 300 mg capsule 300 mg PO Q12H 5 Days Qty: 10 0RF No Action aspirin 81 mg tablet,delayed release (DR/EC) 81 mg PO DAILY Patient Comments: on provided med list Brilinta 60 mg tablet 60 mg PO Q12H latanoprost 0.005 % drops 1 drp EACH EYE QPM metoprolol succinate 25 mg tablet extended release 24 hr 12.5 mg PO DAILY Patient Comments: on provided med list nitroglycerin 0.4 mg tablet, sublingual 0.4 mg sublingual Q5M PRN (Reason: Chest Pain) Rx Instructions: do not exceed 3 doses per episode potassium chloride 20 mEq tablet extended release 20 meq PO DAILY Entresto 24-26 mg tablet 1 tablet PO BID Patient Comments: on provided med list [id number] serr [Osteo Bi-Flex (5-Loxin)] 1,500-400-100 mg-unit-mg tablet 1 tablet PO DAILY Rx Instructions: give after food/meal megestrol 40 mg tablet 20 mg PO QID oxycodone-acetaminophen [Percocet] 5-325 mg tablet 1 tablet PO Q6H PRN (Reason: pain) Qty: 30 0RF cyanocobalamin (vitamin B-12) [Vitamin B-12] 250 mcg Tablet 250 mcg PO QAM Qty: 30 0RF ferrous sulfate 325 mg (65 mg iron) Tablet,Delayed Release (Dr/Ec) 325 mg PO BID Qty: 60 0RF Jardiance 10 mg Tablet 10 mg PO DAILY Qty: 30 0RF Repatha Syringe 140 mg/mL syringe See Rx Instructions .ROUTE .COMPLEX Rx Instructions: 140 mg subcutaneously due 06/10/24 fluconazole [Diflucan] 100 mg Tablet 100 mg PO BID 14 Days Qty: 28 0RF pantoprazole 40 mg tablet,delayed release (DR/EC) 40 mg PO BID Qty: 60 0RF albuterol sulfate 90 mcg/actuation HFA aerosol inhaler See Rx Instructions .ROUTE .COMPLEX Qty: 25.5 2RF Dose Instruction: 2 PUFF INHALED EVERY 4 HOURS NEEDED FOR SHORTNESS OF BREATH OR WHEEZING Rx Instructions: 2 PUFF INHALED EVERY 4 HOURS NEEDED FOR SHORTNESS OF BREATH OR WHEEZING fluticasone propion-salmeterol [Advair Diskus] 250-50 mcg/dose blister with device 1 inh inhalation BID Qty: 180 3RF metformin 500 mg tablet See Rx Instructions .ROUTE .COMPLEX Qty: 270 2RF Dose Instruction: TAKE 2 TABLETS IN THE MORNING AND 1 TABLET IN THE EVENING Rx Instructions: TAKE 2 TABLETS IN THE MORNING AND 1 TABLET IN THE EVENING furosemide 40 mg tablet See Rx Instructions .ROUTE .COMPLEX Qty: 180 2RF Dose Instruction: TAKE 1 TABLET BY MOUTH TWICE A DAY Rx Instructions: TAKE 1 TABLET BY MOUTH TWICE A DAY Follow-up/Referrals: Ian Jaeger MD [Primary Care Provider] -
[2024-12-26 15:54] VITALS: BP 96/65; PULSE 96; RESP 18; TEMP 36.2; O2SAT 100
[2024-12-26 17:18] LABS: Eosinophils Percent Auto 0.5 % (0-4.4); Hematocrit 36.6 % (42.0-52.0); Hemoglobin 10.5 g/dL (14.0-18.0); Immature Granulocyte Absolute 0.01 K/mm3 (0.00-0.031); Immature Granulocyte Percent A 0.5 % (0-0.5); Lymphocytes Absolute Auto 0.84 K/mm3 (0.9-3.2); Lymphocytes Percent Auto 39.8 % (18.3-44.2); Mean Corpuscular HGB Conc 28.7 g/dl (32-36); Mean Corpuscular Hemoglobin 24.4 pg (26-34); Mean Corpuscular Volume 84.9 fl (80-100); Mean Platelet Volume 9.3 fl (7.4-10.4); Monocytes Absolute Auto 0.2 K/mm3 (0.1-0.6); Monocytes Percent Auto 8.1 % (2.6-8.5); Neutrophils Absolute Auto 1.1 K/mm3 (1.3-6.7); Neutrophils Percent Auto 51.1 % (45.5-73.1); Platelet Count Result 340 k/mm3 (150-375); Red Blood Count 4.31 M/mm3 (4.6-6.20); Red Cell Distribution Width 18.1 % (11.5-14.5); White Blood Count 2.1 K/mm3 (4.5-10.0)
[2024-12-26 17:28] LABS: Alanine Aminotransferase 15 U/L (6-50); Albumin Level 3.7 g/dL (3.5-5.1); Alkaline Phosphatase 108 U/L (38-126); Anion Gap 11 mmol/L (4-12); Aspartate Amino Transferase 28 U/L (17-59); Bilirubin,Total 0.4 mg/dL (0.2-1.3); Blood Urea Nitrogen 13 mg/dL (9-20); Carbon Dioxide 24 mmol/L (22-30); Chloride 103 mmol/L (98-107); Estimated CRCL calculation 71 ml/min; Estimated Glomerular Filt Rate > 60; Glucose 184 mg/dL (65-110); Lipase 84 U/L (23-300); Potassium 3.9 mmol/L (3.4-5.0); Sodium 138 mmol/L (137-145)
[2024-12-26 17:31] LABS: Appearance Urine Turbid (Clear); Protein Urine 2+ mg/dL (Negative); Specific Grav Ur 1.015 (1.001-1.035)
[2024-12-26 17:32] LABS: Add Urine Microscopic? YES
[2024-12-26 17:33] LABS: Bacteria Urine 1+ /hpf; Bilirubin Urine Negative (Negative); Blood Urine 4+ (Negative); Glucose Urine UA 4+ mg/dL (Negative); Ketones Urine Negative (Negative); Leukocyte Esterase Ur Negative LEU/UL (Negative); Nitrate Urine Negative (Negative); Urobilinogen Urine 0.2 mg/dL (<2.0)
[2024-12-26 17:34] LABS: RBC Urine >100 /hpf (0-2); WBC Urine >100 /hpf (0-3)
[2024-12-26 17:35] LABS: Color Urine Red (Yellow)
[2024-12-26 17:37] LABS: Anisocytosis 1+; Hypochromasia 1+; Platelet Estimate Slightly Increased (Adequate); Schistocytes None Seen
[2024-12-26 18:30] VITALS: BP 100/60; PULSE 70; RESP 16; TEMP 36.8; O2SAT 99
--- OUTSIDE RECORDS SUMMARY | 2024-12-26 18:37 | XMS_ITS | Encounter Summary ---
Author Organization [facility] Healthcare Address [address] [place] [id number] Care Team Providers Care Diesel Mechanic Helper Name Role Phone Ian Jaeger MD Primary Care Provide r Reason for Visit * Reason Comments Hospital Follow Up Encounter Details Date Type Department Care Team (Late st Contact Info) Description 12/25/2024 1:30 PM CDT Office Visit [facility] Cardiology [address] [facility] [address] [place] [phone] Leeanna Jean Baptiste NP [address] [email or web address] [address] [place] [address] Ischemic cardiomyopathy (Primary Dx); Chronic systolic heart failure (HCC); Coronary artery disease involving [place] coronary artery of [place] heart without angina pectoris; PVC (premature ventricular [...] on file Legal Sex 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 [facility] Cardiology [address] [place] [id number] Date of Visit: 12/25/2024 Patient ID: Phill [...] has some paroxysmal nocturnal dyspnea. Follow-up with PLANT CONTROLS SPECIALIST 12/06/2020: He reports feeling well. He denies [...] dyspnea orthopnea edema palpitations Office visit with PLANT CONTROLS SPECIALIST 04/30/2023: Over the past month he is [...] syncope, presyncope, orthopnea, edema palpitations Follow-up with PLANT CONTROLS SPECIALIST 02/07/2024: He has no concerns today and states he is feeling well. He and his thinks his TORREZ has been unchanged. He sleeps in a recliner due to orthopnea. He denies swelling, chest pain, lightheadedness or syncope. Follow-up with PLANT CONTROLS SPECIALIST 04/17/2024: He is here for routine follow-up and thinks he is doing well. His states that he gets short of breath easily when he ambulates. Patient thinks he breathes better when he takes Claritin regularly but his was concerned about him staying on it for too long. (SeeROS for pertinent negatives). Follow up with PLANT CONTROLS SPECIALIST 07/17/2024: He returns for routine follow up [...] dyspnea, orthopnea, edema, palpitations Hospital follow-up with PLANT CONTROLS SPECIALIST 12/25/2024: He was admitted to [facility] on 12/09/2024 with anemia. He [...] T as tolerated (Jardiance was added), consider EXTERNAL GRINDER D on an outpatient basis. He returns [...] reflux disease) HX OTHER MEDICAL HTN, h/o ID, , obesity, hyperlipidemia, dentures,; Comments: FELIPA 04/26/2016 [...] A DAY, Disp: 180 tablet, Rfl: 2 [id number] serr (OSTEO BI-FLEX, 5-LOXIN,) 1,500-400-100 mg-unit-mg tablet, [...] heart failure (HCC) Coronary artery disease involving [place] coronary artery of [place] heart without angina pectoris PVC (premature ventricular contraction) Hospital discharge follow-up Plan/Recommendations: Echocardiogram last year showed LVEF 30%. However echocardiogram during his recent hospitalization for anemia showed LVEF declined 15-20%. I explained the increased risk of SCD. Patient is interestedin pursuing defibrillator implantation if he is a candidate. I advised him to reschedule his follow-up appointment with EP at [facility] to discuss this further. Continue current medical [...] concerns. 12/25/2024 JOSE Lozano- Nurse Practitioner with [facility] This note is dictated and transcribed using [employer] Direct Software. Atmospheric Scientist variancesmay occur. Despite proofreading, typographical errors may occur. documented in this encounter Plan of Treatment Not on file documented as of this encounter Visit Diagnoses Diagnosis Ischemic cardiomyopathy- Primary Other specified forms of chronic ischemic heart disease Chronic systolic heart failure (HCC) Chronic systolic heart failure Coronary artery disease involving [place] coronary artery of [place] heart without angina pectoris PVC (premature ventricular [...] 12/21/2024 added in this encounter Care Teams Diesel Mechanic Helper Relationship Specialty Start Date End Date Ian Jaeger MD [address] [place] [address] PCP - General Emergency Medicine 08/17/22 documented as of this encounter
--- OUTSIDE RECORDS SUMMARY | 2024-12-26 18:37 | XMS_ITS | Clinical Summary ---
Author Organization [facility] [address] Address [address] [place] [address] Care Team Providers Care Toilet Products Molder Name Role Phone Ian Jaeger MD Primary [...] mg SL tabletIndicati ons:Coronary artery disease involving nondalton coronary artery of nondalton heart without angina pectoris Place 1 tablet [...] 60 mg tabletIndicati ons:Coronary artery disease of [place]al[place] artery of [place] heart with stable angina pectoris TAKE 1 [...] (06/15/2020): Added automatically from request for surgery [id number] Preoperative cardiovascular examination 02/26/20 Bradycardia 02/26/2020 Ventricular bigeminy 02/26/2020 Gastroesophageal reflux disease 03/25/2019 Bone lesion 04/01/2018 Hyperlipidemia associated with type 2 diabetes m ellitus 06/10/2017 Hypertension associated with diabetes 06/10/2017 Coronary artery disease of n ative artery of nondalton heart with stable angina pectoris 05/29/2016 Overview (11/15/2016): Coronary artery disease involving nondalton coronary artery of nondalton heart without angina pectoris Chronic systolic heart [...] Description 12/25/2024 1:30 PM CDT Office Visit [facility] Cardiology [address] [place] [address] Leeanna Jean Baptiste NP Ischemic cardiomyopathy (Primary Dx); Chronic systolic heart failure (HCC); Coronary artery disease involving nondalton coronary artery of [place]alton heart without angina pectoris; PVC (premature ventricular contraction); Hospital discharge follow-up 11/20/2024 Telephone [facility] Cardiology [address] [place] [phone] Jaime Pratt MD 10/19/2024 10:45 AM CDT Office Visit [facility] Cardiology [address] [place] [address] Jaime Pratt MD Coronary artery disease of nondalton artery of nondalton heart with stable angina pectoris (Primary Dx); [...] Date Comments Hx Other Medical HTN, h/o SC, , obesity, hyperlipidemia, dentures,; Comments: MAF 04/26/2016 [...] on file Legal Sex Male 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 ROLL 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 Gender Identity Not on file Sexual Orientation Not on file Obstetrics History Last Filed Vital Signs Vital Sign Reading Time Taken Comments Blood Pressure 92/60 12/25/2024 1:35 PM CDT Pulse 94 12/25/2024 1:35 PM CDT Temperature 36.5 C (97.7 F) 11/15/2020 11:14 AM CDT Respiratory Rate 19 07/25/2020 5:50 PM ROLL CAPPER Oxygen Saturation 99% 12/25/2024 1:35 PM CDT [...] Completed 08/12/2022 Medical Devices Implanted Type Area Sanitation Director Device Identifier Shelf Expiration Date Model / Serial / Lot [employer] [id number] System 6-12fr Mvp Venous Closure Vascade - [id number] Implanted:Qty: 1 on 07/25/2020 by Florentin Lopez MD at [facility] [employer] 05/03/2022 800-612C-1 0U / / [id number] [employer] [id number] System 6-12fr Mvp Venous Closure Vascade - [id number] Implanted:Qty: 1 on 07/25/2020 by Florentin Lopez MD at [facility] [employer] 05/10/2022 800-612C-1 0U / / [id number] [employer] [id number] System 6-12fr Mvp Venous Closure Vascade - [id number] Implanted:Qty: 1 on 07/25/2020 by Florentin Lopez MD at [facility] [employer] 05/10/2022 800-612C-1 0U / / [id number] [employer] [id number] System 6-12fr Mvp Venous Closure Vascade - [id number] Implanted:Qty: 1 on 07/25/2020 by Florentin Lopez MD at [facility] [employer] 05/03/2022 800-612C-1 0U / / [id number] Stent Chest Description: proximal LAD p er daughter in law Procedures Procedure Name Priority Date/Time Associated Diagnosis Comments LIPID PANEL Routine 07/12/2023 Coronary artery disease of nondal[place] artery of nondalton heart with stable angina pectoris from Last [...] Relevant to Health Maintenance Insurance MEDICARE MEDICARE [facility] MEDICARE MEDICARE Care Teams Toilet Products Molder Relationship Specialty Start Date End Date Ian Jaeger MD [address] [place] [address] PCP - General Emergency Medicine 08/17/22
--- OUTSIDE RECORDS SUMMARY | 2024-12-26 18:37 | XMS_ITS | Clinical Summary ---
Author Organization [facility] Address [facility] [place] [address] Care Team Providers Care Marshmallow Machine Operator Name Role Phone Ebenezer Magallanes MD Unavailable [phone] Ian Jaeger MD Primary Care Provider [phone] Allergies Active Allergy Reactions Criticality Noted Date [...] (08/12/2022): Added automatically from request for surgery [id number] Bradycardia 02/26/2020 Ventricular bigeminy 02/26/2020 Gastroesophageal reflux disease 03/25/2019 Bone lesion 04/01/2018 Chronic systolic heart failure ([facility]) 05/29/2016 Overview (08/12/2022): Chronic systolic (congestive) heart failure Coronary artery disease of n ative artery of [place] heart with stable angina pectoris 05/29/2016 Overview (08/12/2022): Coronary artery disease involving [place] coronary artery of [place] heart without angina pectoris Obstructive sleep apnea syndrome 05/29/2016 Overview (08/12/2022): Obstructive sleep apnea Cardiomyopathy ([facility]) 04/26/2016 Overview (08/12/2022): Cardiomyopathy Dyspnea on exertion 04/26/2016 Overview (08/12/2022): Dyspnea on effort [id number] 03/23/2016 Hypertension associated with diabetes ([facility]) 05/18/2013 Overview (08/12/2022): Essential hypertension Diabetes mellitus ([facility]) 05/18/2013 Hyperlipidemia 05/18/2013 Overview (08/12/2022): Hyperlipidemia LDL [...] place to sleep or slept in a [place] care facility (including now)? No 08/12/2022 Sex and Gender Information Value Date Recorded Sex Assigned at Not on file Legal Sex Male 8:36 PM CDT Gender Identity Not on file Sexual Orientation Not on file Last Filed Vital Signs Vital Sign Reading Time Taken Comments Blood Pressure 110/53 08/14/2022 11:18 AM DB2 SYSTEMS PROGRAMMER Pulse 78 08/14/2022 11:18 AM DB2 SYSTEMS PROGRAMMER Temperature 36.9 C (98.4 F) 08/14/2022 11:18 AM DB2 SYSTEMS PROGRAMMER Respiratory Rate 16 08/14/2022 11:18 AM DB2 SYSTEMS PROGRAMMER Oxygen Saturation 100% 08/14/2022 11:18 AM DB2 SYSTEMS PROGRAMMER Inhaled Oxygen Concentration - - Weight 82 kg (180 lb 12.4 oz) 08/14/2022 3:28 AM DB2 SYSTEMS PROGRAMMER Height 177.8 cm (5' 10 ) 08/12/2022 8:19 AM DB2 SYSTEMS PROGRAMMER Body Mass Index 25.94 08/12/2022 8:19 AM DB2 SYSTEMS PROGRAMMER Plan of Treatment Health Maintenance Due Date [...] Sánchez RN Medical Devices Implanted Type Area Landing Support Specialist Device Identifier Shelf Expiration Date Model / Serial / Lot Clip Resolution 2.8mm 360 235cm 11mm Open - [id number] Implanted:Qty : 1 on 08/13/2022 by Landon Nickerson MD at [facility] Clip Implant N/A: Abdomen [email or web address] [id number] 02/21/2025 [id number] / / [id number] Description:JE junction Procedures Procedure Name Priority Date/Time Associated Diagnosis Comments HEMOGLOBIN, GLYCOSYLATED Routine 08/12/2022 8:40 AM DB2 SYSTEMS PROGRAMMER LIPID PANEL Routine 04/02/2019 from Last 3 Months or Most Recently Relevant to Health Maintenance Results * (ABNORMAL) HEMOGLOBIN, GLYCOSYLATED (08/12/2022 8:40 AM DB2 SYSTEMS PROGRAMMER) HGB A1C 7.2(H) <5.7 % 08/12/2022 1:45 PM DB2 SYSTEMS PROGRAMMER [facility] Comment: ADA GUIDELINES 2010 5.7 TO 6.4% INCREASED RISK OF DIABETES > OR = 6.5% CONSISTENT WITH DIABETES ESTIMATED AVG GLUCOSE 160 mg/dL 08/12/2022 1:45 PM DB2 SYSTEMS PROGRAMMER [facility] 08/12/2022 8:40 AM DB2 SYSTEMS PROGRAMMER us Edin Markham [facility] Final Result [facility] [address] [place] [address], * (ABNORMAL) LIPID PANEL (04/02/2019) CHOLESTEROL 173 [...] 3:43 PM 08/14/2022 6:12 PM Care Teams Marshmallow Machine Operator Relationship Specialty Start Date End Date Ian Jaeger MD [address] [address] PCP - General INTERNAL MEDICINE 08/12/22 Ebenezer Magallanes MD [address] [place] [id number] Ernst [employer] Re[employer] Worker CARDIOVASCULAR DISEASE 05/19/19
--- OUTSIDE RECORDS SUMMARY | 2024-12-26 18:37 | XMS_ITS | Referral Summary ---
Author Organization [place] [address] Address [address] [place] [address] Care Team Providers Care Priming Powder Premix Blender Name Role Phone Ian Jaeger MD Primary Care Provide r Encounters Date Type Department Care Team Description 12/25/2024 1:30 PM CDT Office Visit [facility] Medical [facility] Cardiology [address] [place] [address] [place] [phone] Leeanna Jean Baptiste NP Ischemic cardiomyopathy (Primary Dx); Chronic systolic heart failure (HCC); Coronary artery disease involving [place] coronary artery of [place] heart without angina pectoris; PVC (premature ventricular contraction); Hospital discharge follow-up 11/20/2024 Telephone [facility] Cardiology [address] [place] [address] Jaime Pratt MD 10/19/2024 10:45 AM CDT Office Visit [address] [address] Jaime Pratt MD Coronary artery disease of [place] artery of [place] heart with stable angina pectoris (Primary Dx); [...] mg SL tabletIndicati ons:Coronary artery disease involving [place] coronary artery of [place] heart without angina pectoris Place 1 tablet [...] 60 mg tabletIndicati ons:Coronary artery disease of [place] artery of [place] heart with stable angina pectoris TAKE 1 [...] (06/15/2020): Added automatically from request for surgery [id number] Preoperative cardiovascular examination 02/26/20 Bradycardia 02/26/2020 Ventricular bigeminy 02/26/2020 Gastroesophageal reflux disease 03/25/2019 Bone lesion 04/01/2018 Hyperlipidemia associated with type 2 diabetes m ellitus 06/10/2017 Hypertension associated with diabetes 06/10/2017 Coronary artery disease of n ative artery of [place] heart with stable angina pectoris 05/29/2016 Overview (11/15/2016): Coronary artery disease involving [place] coronary artery of [place] heart without angina pectoris Chronic systolic heart [...] on file Legal Sex Male 4:13 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 Gender Identity Not on file Sexual Orientation Not on file Last Filed Vital Signs Vital Sign Reading Time Taken Comments Blood Pressure 92/60 12/25/2024 1:35 PM CDT Pulse 94 12/25/2024 1:35 PM CDT Temperature 36.5 C (97.7 F) 11/15/2020 11:14 AM CDT Respiratory Rate 19 07/25/2020 5:50 PM HAND RIVETER Oxygen Saturation 99% 12/25/2024 1:35 PM CDT Inhaled Oxygen Concentration - - Weight 70.3 kg (155 lb) 12/25/2024 1:35 PM CDT Height 177.8 cm (5' 10 ) 12/25/2024 1:35 PM CDT Body Mass Index 22.24 12/25/2024 1:35 PM CDT Plan of Treatment Not on file Medical Devices Implanted Type Area Plug Grower Device Identifier Shelf Expiration Date Model / Serial / Lot Omb[employer], [employer] [id number] System 6-12fr Mvp Venous Closure Vascade - [id number] Implanted:Qty: 1 on 07/25/2020 by Florentin Lopez MD at [facility] [employer] 05/03/2022 800-612C-1 [id number] / / [id number] [employer] [id number] System 6-12fr Mvp Venous Closure Vascade - [id number] Implanted:Qty: 1 on 07/25/2020 by Florentin Lopez MD at [facility] [employer] 05/10/2022 800-612C-1 0U / / [id number] [employer] [id number] System 6-12fr Mvp Venous Closure Vascade - [id number] Implanted:Qty: 1 on 07/25/2020 by Florentin Lopez MD at [facility] [employer] 05/10/2022 800-612C-1 0U / / [id number] [employer] [id number] System 6-12fr Mvp Venous Closure Vascade - [id number] Implanted:Qty: 1 on 07/25/2020 by Florentin Lopez MD at [facility] [employer] 05/03/2022 800-612C-1 0U / / [id number] Stent Chest Description: proximal LAD p er daughter in law Procedures Procedure Name Priority Date/Time Associated Diagnosis Comments LIPID PANEL Routine 07/12/2023 Coronary artery disease of [place] artery of [place] heart with stable angina pectoris from Last [...] Relevant to Health Maintenance Insurance MEDICARE MEDIC[facility]IC[facility] MEDICARE Care Teams Priming Powder Premix Blender Relationship Specialty Start Date End Date Ian Jaeger MD [address] [place] [address] PCP - General Emergency Medicine 08/17/22
--- OUTSIDE RECORDS SUMMARY | 2024-12-26 18:38 | XMS_ITS | Encounter Summary ---
Author Organization [facility] Address [address] [facility] [address] [place] [address] Care Team Providers Care Tobacco Scrap Sifter Name Role Phone No, Physician Primary Care Provider [phone] Rinku Glover MD Primary Care Provider [phone] Ian Jaeger MD Primary Care Provide r Encounter Details Date Type Department Care Team (Late st Contact Info) Description 08/23/2016 Orders Only [facility] ProviderAyala MD [address] [place] [address] Social History Tobacco Use Types Packs/Day Years Used Date Smoking Tobacco: Former Alcohol Use Standard Drinks/Week Comments No 0 (1 standard drink = 0.6 oz pur e alcohol) Sex and Gender Information Value Date Recorded Sex Assigned at Not on file 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
--- OUTSIDE RECORDS SUMMARY | 2024-12-26 18:38 | XMS_ITS | Clinical Summary ---
Author Organization [facility] Alexander ervin [facility] Address [address] [place] [address] Care Team Providers Care Marketing Secretary Name Role Phone Unavailable Primary Care Provider [...] AM CDT Office Visit [facility] Oncology and Hematology - Jas [address] [facility] [address] [place] [address] Rui Ellsworth MD [address] [facility] [address] [place] [address] Health Maintenance Due Date Last Done Comments DTAP/TDAP/TD VACCINES (1 - Tdap) 1962 PNEUMOCOCCAL VACCINE 50+ YEARS (1 of 1 - PCV) 04/29/19 93 ZOSTER VACCINE (1 of 2) 1993 RSV VACCINE (60+ or ) (1 - 1-dose 75+ series) 2018 INFLUENZA VACCINE (#1) 2024 Insurance MEDICARE PART A AND B [facility] Address: [facility] [id number] [place] [address]
[2024-12-26 20:53] VITALS: BP 101/64; PULSE 79; RESP 18; O2SAT 100
== END 2024-12-26 22:58 | disposition home or self-care (01) ==
PROVIDERS: Emergency Provider Physician Assistant; PCP Emergency Medicine
DX: N39.0 Urinary tract infection, site not specified (principal); N20.0 Calculus of kidney; Z79.82 Long term (current) use of aspirin; E11.9 Type 2 diabetes mellitus without complications; I50.9 Heart failure, unspecified; I11.0 Hypertensive heart disease with heart failure; I25.10 Atherosclerotic heart disease of native coronary artery without angina pectoris; F17.210 Nicotine dependence, cigarettes, uncomplicated
CPT/HCPCS: 36415; 74177; 80053; 81001; 83690; 85025; 87077; 87086; 87186; 96365; 99284; J0696; Q9967

== ENCOUNTER 2025-03-25 10:51 | Outpatient (CLI) | payer MEDICARE, OTHER, SELFPAY ==
--- OUTSIDE RECORDS SUMMARY | 2025-03-25 11:07 | XMS_ITS | Encounter Summary ---
Author Organization [facility] Address [address] [place] [address] Care Team Providers Care Costumed Character Entertainer Name Role Phone Ian Jaeger MD Primary Care Provider [phone] Encounter Details Date Type Department Care Team (Late st Contact Info) Description 03/25/2025 10:30 AM CDT Office Visit [facility] Oncology and Hematology - Jas [address] [facility] [address] [place] [address] Rui Ellsworth MD [address] [facility] [address] [place] [address] Chronic anemia (Primary Dx) Social History Tobacco Use Types Packs/Day Years Used Date Smoking Tobacco: Every Day Cigarettes 0.5 63 Started: 03/25/1962 Smokeless Tobacco: Former Tobacco Cessation:Ready to Q uit: Not Asked; Counseling Given: Not Answered Alcohol Use Standard Drinks/Week Comments Yes 0 (1 standard drink = 0.6 oz pur e alcohol) Not very often Sex and Gender Information Value Date Recorded Sex Assigned at Not on file Legal Sex Male 10:39 AM CDT Gender Identity Not on file Sexual Orientation Not on file documented as of this encounter Last Filed Vital Signs Vital Sign Reading Time Taken Comments Blood Pressure 111/59 03/25/2025 10:13 AM CDT Pulse 75 03/25/2025 10:13 AM CDT Temperature 36.8 C (98.3 F) 03/25/2025 10:13 AM CDT Respiratory Rate 16 03/25/2025 10:1 3 AM CDT Oxygen Saturation 98% 03/25/2025 10: 13 AM CDT Inhaled Oxygen Concentration - - Weight 70.7 kg (155 lb 12.8 oz) 025 10:13 AM CDT Height 180.3 cm (5' 11) 03/25/2025 10: 13 AM CDT Body Mass Index 21.73 03/25/2025 10:13 AM CDT documented in this encounter Plan of Treatment Upcoming Encounters Date Type Department Care Team (Late st Contact Info) Description 04/01/2025 4:30 PM CDT Telephone Check Up [facility] Oncology and Hematology [facility] [address] [place] [address] Rui Ellsworth MD [address] [facility] [employer] [address] [place] [address] Scheduled Orders Name Type Priority Associated Diagnoses Orde r Schedule CBC WITH DIFFERENTIAL Lab Stat Chronic anemia Expected: 03/25/2025, Expires: 03/25/2026 COMPREHENSIVE METABOLIC PANEL Lab Stat Chronic anemia Expected: 03/25/2025, Expires: 03/25/2026 FERRITIN Lab Routine Chronic anemia Expected: 03/25/2025, Expires: 03/25/2026 IRON, TIBC, AND PERCENT SATURATION Lab Routine Chronic anemia Expected: 03/25/2025, Expires: 03/25/2026 METHYLMALONIC ACID Lab Routine Chronic anemia Expected: 03/25/2025, Expires: 03/25/2026 TRANSFERRIN RECEPTOR TFR SOLUBLE Lab Routine Chronic anemia Expected: 03/25/2025, Expires: 03/25/2026 VITAMIN B12 AND FOLATE Lab Routine Chronic anemia Expected: 03/25/2025, Expires: 03/25/2026 documented as of this encounter Visit Diagnoses Diagnosis Chronic anemia- Primary Anemia, unspecified documented in this encounter Care Teams Costumed Character Entertainer Relationship Specialty Start Date End Date Ian Jaeger MD [address] [place] [address] PCP - General Internal Medicine 03/25/25 documented as of this encounter
--- OUTSIDE RECORDS SUMMARY | 2025-03-25 11:07 | XMS_ITS | Encounter Summary ---
Author Organization [facility] Address [address] [place] [address] Care Team Providers Care Manager Nursing Name Role Phone Ian Jaeger MD Primary Care Provide r Encounter Details Date Type Department Care Team (Late st Contact Info) Description 12/08/2024 Orders Only [facility] Health Information Management [address] [place] [address] Scanning, Provider Social History Tobacco Use Types Packs/Day Years Used Date Smoking Tobacco: Every Day Cigarettes Smokeless Tobacco: Former Alcohol Use Standard Drinks/Week Comments No 0 (1 standard drink = 0.6 oz pur e alcohol) Sex and Gender Information Value Date Recorded Sex Assigned at Not on file 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 Sex Male 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 Gender Identity Not on file Sexual Orientation Not on file documented as of this encounter Plan of Treatment Not on file documented as of this encounter Procedures Procedure Name Priority Date/Time Associated Diagnosis Comments SCAN - RADIOLOGY/IMAGING 12/08/2024 CARDIOLOGY DOCUMENT SCAN 12/08/2024 documented in this encounter Results * SCAN - RADIOLOGY/IMAGING (12/08/2024) Anatomical Region Laterality Modality Other us Provider Scanning Final Result * Cardiology Document Scan (12/08/2024) Anatomical Region Laterality Modality Other us Provider Scanning CV CARDIAC SERVICES PROCEDURES Final Result documented in this encounter Visit Diagnoses Not on filedocumented in this encounter Care Teams Manager Nursing Relationship Specialty Start Date End Date Ian Jaeger MD [address] [place] [address] PCP - General Emergency Medicine 08/17/22 documented as of this encounter
--- OUTSIDE RECORDS SUMMARY | 2025-03-25 11:07 | XMS_ITS | Encounter Summary ---
Author Organization [facility] Address [address] [place] [address] Phone Care Team Providers Care Distribution Spec Name Role Phone Ian Jaeger MD Primary Care Provide r Encounter Details Date Type Department Care Team (Late st Contact Info) Description 02/17/2025 Results Follow-Up [facility] Cardiology [address] [facility] Medical Office [address] [place] [address] Florentin Lopez MD [address] [facility] [address] [place] [address] ECG 12 lead Social History Tobacco Use Types Packs/Day Years Used Date Smoking Tobacco: Every Day Cigarettes Smokeless Tobacco: Former Alcohol Use Standard Drinks/Week Comments No 0 (1 standard drink = 0.6 oz pur e alcohol) Sex and Gender Information Value Date Recorded Sex Assigned at Not on file Legal Sex Male 4:13 AM ROBOTICS APPLICATION ENGINEER Gender Identity Not on file Sexual Orientation Not on file documented as of this encounter Plan of Treatment Not on file documented as of this encounter Visit Diagnoses Not on filedocumented in this encounter Care Teams Distribution Spec Relationship Specialty Start Date End Date Ian Jaeger MD [address] [place] [address] PCP - General Emergency Medicine 08/17/22 documented as of this encounter
--- OUTSIDE RECORDS SUMMARY | 2025-03-25 11:07 | XMS_ITS | Clinical Summary ---
Author Organization [facility] [place] [facility] [place] [address] Address [address] [place] [address] Care Team Providers Care Deputy Juvenile Officer Name Role Phone Ian Jaeger MD Primary Care Provide r Allergies Active Allergy Reactions Criticality Noted Date Comments Carvedilol Anaphylaxis High Lisinopril Anaphylaxis,Unknown High 05/02/2016 Varenicline Unknown Medications glucosamine-D 3-Boswellia serr (OSTEO BI-FLEX, 5-LOXIN,) 1,500-400-100 mg-unit-mg tablet [...] every day 0 0 09/12/19 17 Active oxygenIndicat ions:Dyspnea Administer 2 L/min into each nostril as needed. Active traMADol (ULTRAM) 50 mg tablet Take 1 tablet (50 mg total) by mouth every 8 (eight) hours as needed 03/23/20 19 Active OneTouch Ultra Blue Test Strip strip USE 1 STRIP VIA METER THREE TIMES A DAY 06/08/20 20 Active alirocumab (Praluent Pen) 75 mg/mL pen injector Inject 75 mg as directed every 14 (fourteen) days 6 mL 3 05/03/20 22 Active furosemide (LASIX) 40 mg tablet TAKE 1 TABLET BY MOUTH TWICE A DAY 180 tablet 2 06/10/20 23 Active loratadine (Claritin) 10 mg tablet Take 1 tablet (10 mg total) by mouth daily Active fluticasone propion-salme teroL (ADVAIR DISKUS) 250-50 mcg/dose diskus inhaler Inhale 1 puff 2 (two) times a day 04/06/20 24 Active potassium chloride ER 20 mEq CR tablet TAKE 1 TABLET BY MOUTH EVERY DAY WITH FOOD 90 tablet 3 08/04/20 24 Active sacubitriL-va lsartan (Entresto) 24-26 mg tablet TAKE 1 TABLET BY MOUTH TWICE A DAY 180 tablet 2 09/11/19 25 Active metoprolol XL (TOPROL-XL) 25 mg extended release tablet TAKE 1 TABLET BY MOUTH EVERY DAY 90 tablet 2 12/24/19 25 Active oxyCODONE-norman taminophen (PERCOCET) 5-325 mg per tablet Take by mouth every 6 (six) hours as needed 12/22/19 25 Active ferrous sulfate 325 mg (65 mg of elemental iron) tablet Take 1 tablet (325 mg total) by mouth 2 (two) times a day 12/14/19 25 Active Jardiance 10 mg tablet Take 1 tablet (10 mg total) by mouth daily 90 tablet 1 01/06/20 25 Active Brilinta 60 mg tabletIndicat ions:Coronary artery disease of k[place] artery of [place] heart with stable angina pectoris TAKE 1 TABLET BY MOUTH TWICE A DAY 180 tablet 2 01/19/20 25 Active evolocumab (Repatha Syringe) syringe syringe INJECT 1 ML (140 MG) SUBCUTANEOUSLY EVERY 14 DAYS 2 mL 5 01/20/20 25 Active nitroglycerin (NITROSTAT) 0.4 mg SL tabletIndicat ions:Coronary artery disease involving klam[place] coronary artery of [place] heart without angina pectoris Place 1 tablet (0.4 mg total) under the tongue every 5 (five) minutes as needed for chest pain 25 tablet 11 02/03/20 25 Active tamsulosin (FLOMAX) 0.4 mg extended release capsule Take by mouth daily 01/15/[address] (PROTONIX) 40 mg EC tabletIndicat ions:Gastroes ophageal reflux disease TAKE 1 TABLET BY MOUTH EVERY DAY 90 tablet 2 03/15/[address] (PROTONIX) 40 mg EC tabletIndicat ions:Gastroes ophageal reflux disease TAKE 1 TABLET BY MOUTH EVERY DAY 90 tablet 2 09/11/19 25 2024 Discontinued Active Problems Problem Noted Date Diagnosed Date PVC (premature ventricular contraction) 06/15/20 Overview (06/15/2020): Added automatically from request for surgery [id number] Preoperative cardiovascular examination 02/26/20 Bradycardia 02/26/2020 Ventricular bigeminy 02/26/2020 Gastroesophageal reflux disease 03/25/2019 Bone lesion 04/01/2018 Hyperlipidemia associated with type 2 diabetes m ellitus 06/10/2017 Hypertension associated with diabetes 06/10/2017 Coronary artery disease of n ative artery of klam[place] heart with stable angina pectoris 05/29/2016 Overview (11/15/2016): Coronary artery disease involving [place] coronary artery of [place] heart without angina pectoris Chronic systolic heart [...] Encounters Date Type Department Care Team Description 02/25/2025 8:30 AM CDT Office Visit [facility] Cardiology [address] [place] [address] Jaime Pratt MD Coronary artery disease of klam[place] artery of klamath heart with stable angina pectoris (Primary Dx); Chronic systolic heart failure (HCC); Hyperlipidemia associated with type 2 diabetes mellitus (HCC); Hypertension associated with diabetes (HCC); PVC (premature ventricular contraction) 02/17/2025 Results Follow-Up [facility] Cardiology [address] [place] [address] [address] [place] [address] Florentin Lopez MD ECG 12 lead 02/02/2025 Telephone [facility] Cardiology [address] [place] [address] [address] [place] [address] Jaime Pratt MD 01/07/2025 11:30 AM CDT Office Visit [address] [place] [address] Florentin Lopez MD Essential hypertension (Primary Dx); PVC (premature ventricular contraction); Ischemic cardiomyopathy 01/05/2025 Telephone [facility] Cardiology [address] [place] [address] [address] [place] [address] Jaime Pratt MD 12/29/2024 Telephone [facility] Cardiology [address] [facility] 8th [place] [address] [place] [address] Florentin Lopez MD 12/25/2024 1:30 PM CDT Office Visit [facility] Cardiology [address] [place] [address] [place] [phone] Leeanna Jean Baptiste NP Ischemic cardiomyopathy (Primary Dx); Chronic systolic heart failure (HCC); Coronary artery disease involving klamath coronary artery of klamath heart without angina pectoris; PVC (premature ventricular contraction); Hospital discharge follow-up from Last 3 Months Immunizations Immunization Administration Dates Next Due Influenza, Unspecified 05/12/2020 Surgical History Surgery Date Site/Laterality Comments CARDIAC CATHETERIZATION 08/12/2016 - 08/11/2017 Prox LAD stent, later attempt to reaccess was unsuccessful 2018 Medical History Medical History Date Comments Hx Other Medical HTN, h/o [place], , obesity, hyperlipidemia, dentures,; Comments: MAF 04/26/2016 - Coronary artery stenosis Coronar y artery stenosis Hyperlipidemia Hypertension Diabetes mellitus (HCC) COPD (chronic obstructive pu lmonary disease) GERD (gastroesophageal reflux disease) Family History Medical [...] file Legal Sex Male 4:13 AM MANAGER OF CLINICAL Gender Identity Not on file Sexual Orientation Not on file Obstetrics History Last Filed Vital Signs Vital Sign Reading Time Taken Comments Blood Pressure 90/46 02/25/2025 8:32 AM CDT Pulse 94 02/25/2025 8:32 AM CDT Temperature 36.5 C (97.7 F) 11/15/2020 11:14 AM CDT Respiratory Rate 19 07/25/2020 5:50 PM MANAGER OF CLINICAL Oxygen Saturation 98% 02/25/2025 8:32 AM CDT Inhaled Oxygen Concentration - - Weight 69.4 kg (153 lb) 02/25/2025 8:32 AM CDT Height 177.8 cm (5' 10) 02/25/2025 8:32 AM CDT Body Mass Index 21.95 02/25/2025 8:32 AM CDT Plan of Treatment Health Maintenance [...] 03/13, 04/12/2021, Additional history exists Influenza Vaccine (#1) 2025 05/12/2020, 2018 Pneumococcal vaccine 65+ Completed 019, 05/14/2016, 06/07/2015 Abdominal Aortic Aneurysm (A AA) Screen Completed 08/12/2022 Medical Devices Implanted Type Area Radio Maintainer Device Identifier Shelf Expiration Date Model / Serial / Lot [employer] [id number] System 6-12fr Mvp Venous Closure Vascade - [id number] Implanted:Qty: 1 on 07/25/2020 by Florentin Lopez MD at [facility] [employer] 05/03/2022 800-612C-[id number] [id number] / / [id number] [employer] [id number] System 6-12fr Mvp Venous Closure Vascade - [id number] Implanted:Qty: 1 on 07/25/2020 by Florentin Lopez MD at [facility] [employer] 05/10/2022 800-612C-1 [id number] / / [id number] [employer] [id number] System 6-12fr Mvp Venous Closure Vascade - [id number] Implanted:Qty: 1 on 07/25/2020 by Florentin Lopez MD at [facility] [employer] 05/10/2022 800-612C-1 [id number] / / [id number] [employer] [id number] System 6-12fr Mvp Venous Closure Vascade - [id number] Implanted:Qty: 1 on 07/25/2020 by Florentin Lopez MD at [facility] [employer] 05/03/2022 800-612C-1 [id number] / / [id number] Stent Chest Description:proximal LAD p er daughter in law Procedures Procedure Name Priority Date/Time Associated Diagnosis Comments ECG 12-LEAD Routine 01/07/2025 11:55 AM CDT Essential hypertension LIPID PANEL Routine 07/12/2023 Coronary artery disease of klam[place] artery of [place] heart with stable angina pectoris from Last 3 Months or Most Recently Relevant to Health Maintenance Results * ECG 12 lead (01/07/2025 11:55 AM CDT) us Florentin Lopez MD ECG ORDERABLES Final R esult * Lipid panel (07/12/2023) SCRIBED Cholesterol, Total 120 0 - 200 EXTERNAL LAB SCRIBED HDL 45 40 - 100 EXTERNAL LAB SCRIBED LDL 56 0 - 100 EXTERNAL LAB SCRIBED Triglycerides 82 0 - 150 EXTERNAL LAB Blood 07/12/2023 us Jaime Pratt MD LAB BLOOD ORDERABLES Myra l Result EXTERNAL LAB from Last 3 Months or Most Recently Relevant to Health Maintenance Insurance MEDICARE [facility] Address: [address] [address] MEDICARE [facility] MEDICARE MEDICARE AETNA Care Teams Deputy Juvenile Officer Relationship Specialty Start Date End Date Ian Jaeger MD [address] [place] [address] PCP - General Emergency Medicine 08/17/22
--- OUTSIDE RECORDS SUMMARY | 2025-03-25 11:07 | XMS_ITS | Encounter Summary ---
Author Organization [facility] Healthcare Address [address] [place] [address] Care Team Providers Care Developing Machine Operator Name Role Phone Ian Jaeger MD Primary Care Provide r Encounter Details Date Type Department Care Team (Late st Contact Info) Description 06/10/2024 Orders Only [facility] Health Information Management [address] [place] [phone] Scanning, Provider Social History Tobacco Use Types Packs/Day Years Used Date Smoking Tobacco: Every Day Cigarettes Smokeless Tobacco: Former Alcohol Use Standard Drinks/Week Comments No 0 (1 standard drink = 0.6 oz pur e alcohol) Sex and Gender Information Value Date Recorded Sex Assigned at Not on file 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 Gender Identity Not on file Sexual Orientation Not on file documented as of this encounter Plan of Treatment Not on file documented as of this encounter Procedures Procedure Name Priority Date/Time Associated Diagnosis Comments SCAN - LABS 06/10/2024 documented in this encounter Results * SCAN - LABS (06/10/2024) us Provider Scanning Final Result documented in this encounter Visit Diagnoses Not on filedocumented in this encounter Care Teams Developing Machine Operator Relationship Specialty Start Date End Date Ian Jaeger MD [address] [place] [address] PCP - General Emergency Medicine 08/17/22 documented as of this encounter
--- OUTSIDE RECORDS SUMMARY | 2025-03-25 11:07 | XMS_ITS | Encounter Summary ---
Author Organization [facility] Address [address] [facility] [address] [place] [address] Care Team Providers Care Casing In Line Setter Name Role Phone No, Physician Primary Care Provider [phone] Rinku Glover MD Primary Care Provider [phone] Ian Jaeger MD Primary Care Provide r Encounter Details Date Type Department Care Team (Late st Contact Info) Description 08/23/2016 Orders Only [facility] ProviderAyala MD [address] [place] [address] Social History Tobacco Use Types Packs/Day Years Used Date Smoking Tobacco: Former Alcohol Use Standard Drinks/Week Comments No 0 (1 standard drink = 0.6 oz pur e alcohol) Sex and Gender Information Value Date Recorded Sex Assigned at Not on file Legal Sex Male 4:13 AM TURRET LATHE SET UP OPERATOR Gender Identity Not on file Sexual Orientation [...] provider. Historical Provider [facility] JOSE BREGER Final Result documented in this encounter Visit Diagnoses Not on filedocumented in this encounter Care Teams Casing In Line Setter Relationship Specialty Start Date End Date No, Physician PCP - General 04/03/17 06/09/17 Rinku Glover MD [address] [place] [address] PCP - General Internal Medicine 06/10/17 08/16/22 Ian Jaeger MD [address] [place] [address] PCP - General Emergency Medicine 08/17/22 documented as of this encounter
--- OUTSIDE RECORDS SUMMARY | 2025-03-25 11:07 | XMS_ITS | Clinical Summary ---
Author Organization [facility] Address [address] [place] [address] Care Team Providers Care Surgical Garment Assembler Name Role Phone Ian Jaeger MD Primary Care Provider [phone] Allergies Active Allergy Reactions Criticality Noted Date Comments Carvedilol Anaphylaxis High 03/25/2025 Lisinopril Anaphylaxis High 03/25/2025 Varenicline Anaphylaxis High 03/25/2025 Medications aspirin (TAWNY CHEWABLE) 81 mg Tablet, Chewable Take 81 mg by mouth daily. Active Jardiance 10 mg tablet Take 10 mg by mouth daily. 5 Active furosemide (LASIX) 40 mg tablet Take 40 mg by mouth 2 times daily. 3 Active fluticasone propion-salmet Marine (ADVAIR DISKUS,WIXELA INHUB) 250-50 mcg/dose disk inhaler Take 1 Puff by inhalation 2 times daily. 4 Active latanoprost (XALATAN) 0.005 % solution Administer 1 Drop in both eyes daily at bedtime. 5 Active loratadine (CLARITIN) 10 mg tablet Take 10 mg by mouth daily. Active metFORMIN (GLUCOPHAGE) 500 mg tablet Take 500 mg by mouth 2 times daily with meals. 5 Active metoprolol succinate (TOPROL XL) 25 mg Extended Release 24 hour tablet Take 25 mg by mouth daily. 5 Active nitroglycerin (NITROSTAT) 0.4 mg Tablet, Sublingual Place 0.4 mg under tongue every 5 minutes as needed for Chest Pain. 5 Active oxyCODONE-acet aminophen (PERCOCET) 5-325 mg tablet Take by mouth. 5 Active pantoprazole (PROTONIX) 40 mg Tablet, Delayed Release (E.C.) Take 40 mg by mouth daily. 5 Active potassium CHLORIDE (K-TAB) 20 mEq Extended Release tablet Take 20 mEq by mouth daily with breakfast. 4 Active Entresto 24-26 mg Tablet Take 1 Tablet by mouth 2 times daily. 5 Active tamsulosin (FLOMAX) 0.4 mg capsule Take by mouth daily. 5 Active Brilinta 60 mg Tablet Take 60 mg by mouth 2 times daily. 5 Active ferrous sulfate 325 mg (65 mg iron) Tablet, Delayed Release (E.C.) Take 325 mg by mouth 2 times daily. 5 Active Repatha Syringe 140 mg/mL Syringe INJECT 1 ML (140 MG) SUBCUTANEOUSLY EVERY 14 DAYS 5 Active Active Problems No known active problems Encounters Date Type Department Care Team Description 03/25/2025 10:30 AM CDT Office Visit [facility] Oncology and Hematology - [place] [address] [address] [phone] Rui Ellsworth MD Chronic anemia (Primary Dx) from Last 3 Months Family History Medical History Relation Name Comments No Known Problems Brother No Known Problems Child Heart Disease Father Breast Cancer Mother Relation Name Status Comments Brother Alive Child Alive Father Mother Social History Tobacco Use Types Packs/Day Years [...] Mass Index 21.73 03/25/2025 10:13 AM CDT Plan of Treatment Upcoming Encounters Date Type Department Care Team (Late st Contact Info) Description 04/01/2025 4:30 PM CDT Telephone Check Up [facility]cology and Hematology - [place] [address] [facility] [address] [place] [address] Rui Ellsworth MD [address] [facility] [address] [place] [address] Health Maintenance Due Date Last Done Comments DTAP/TDAP/TD VACCINES (1 - Tdap) 1964 Traditional Medicare (ACO) Annual Wellness Visit 04/29 PNEUMOCOCCAL VACCINE 50+ YEARS (1 of 1 - PCV) 04/29/19 93 ZOSTER VACCINE (1 of 2) 1993 RSV VACCINE (60+ or ) (1 - 1-dose 75+ series) 2018 Preventative Visit- Commercial 08/12/2024 INFLUENZA VACCINE (#1) 2025 Insurance MEDICARE PART A AND B AETNA CHOICE POS II Care Teams Surgical Garment Assembler Relationship Specialty Start Date End Date Ian Jaeger MD [address] [place] [phone] PCP - General Internal Medicine 03/25/25
--- OUTSIDE RECORDS SUMMARY | 2025-03-25 11:07 | XMS_ITS | Clinical Summary ---
Author Organization [facility] Address [address] [place] [address] Care Team Providers Care Steam Clothes Press Operator Name Role Phone Ebenezer Magallanes MD Unavailable [phone] Ian Jaeger MD Primary Care Provider [phone] Allergies Active Allergy Reactions Criticality Noted Date [...] bleeding 08/12/2022 PVC (premature ventricular contraction) 06/15/20 20 Overview (08/12/2022): Added automatically from request for surgery [id number] Bradycardia 02/26/2020 Ventricular bigeminy 02/26/2020 Gastroesophageal reflux disease 03/25/2019 Bone lesion 04/01/2018 Chronic systolic heart failure ([facility]) 05/29/2016 Overview (08/12/2022): Chronic systolic (congestive) heart failure Coronary artery disease of n ative artery of [place] heart with stable angina pectoris 05/29/2016 Overview (08/12/2022): Coronary artery disease involving [place] coronary artery of [place] heart without angina pectoris Obstructive sleep apnea syndrome 05/29/2016 Overview (08/12/2022): Obstructive sleep apnea Cardiomyopathy ([facility]) 04/26/2016 Overview (08/12/2022): Cardiomyopathy Dyspnea on exertion 04/26/2016 Overview (08/12/2022): Dyspnea on effort [id number] 03/23/2016 Hypertension associated with diabetes ([facility]) 05/18/2013 Overview (08/12/2022): Essential hypertension Diabetes mellitus ([facility]) 05/18/2013 Hyperlipidemia 05/18/2013 Overview (08/12/2022): Hyperlipidemia LDL goal <70 Restless legs syndrome 05/18/2013 Umbilical hernia 05/18/2013 (aortic stenosis) S/P drug eluting coronary stent placement Dyslipidemia Resolved Problems Problem Noted Date Diagnosed Date Resolved Date Preoperative cardiovascular examination 02/26/2020 08/13/2022 Encounters Date Type Department Care Team Description 12/27/2024 8:50 AM CDT - 12/27/2024 11:02 AM CDT Emergency [facility] [place] [address] Juan Messer PA-C Urinary Catheter Problem Discharge Disposition: Home or Self Care (Routine Discharge) 12/27/2024 Travel from Last 3 Months Social History Tobacco Use Types Packs/Day Years [...] place to sleep or slept in a usp (including now)? No 08/12/2022 Sex and Gender Information Value Date Recorded Sex Assigned at Not on file Legal Sex Male 8:36 PM CDT Gender Identity Not on file Sexual Orientation Not on file Last Filed Vital Signs Vital Sign Reading Time Taken Comments Blood Pressure 126/76 12/27/2024 8:47 AM CDT Pulse 106 12/27/2024 8:47 AM CDT Temperature 36.9 C (98.5 F) 12/27/2024 8:47 AM CDT Respiratory Rate 18 12/27/2024 8:47 AM CDT Oxygen Saturation 99% 12/27/2024 8:47 AM CDT Inhaled Oxygen Concentration - - Weight 82 kg (180 lb 12.4 oz) 12/27/2024 8:47 AM CDT Height 177.8 cm (5' 10) 12/27/2024 8:47 AM CDT Body Mass Index 25.94 12/27/2024 8:47 AM CDT Plan of Treatment Health Maintenance [...] 04/02/2019 Hemoglobin A1C 02/09/2023 08/12/2022 COVID-19 Vaccine (2023-2 5 season) 2024 12/21/2021, 05/13/2021, 10/09/2020 Pneumococcal [...] patient able to perform ADLs independently Lifestyle No Brandon Macario RN Medical Devices Implanted Type Area C Iron Worker Device Identifier Shelf Expiration Date Model / Serial / Lot Clip Resolution 2.8mm 360 235cm 11mm Open - [id number] Implanted:Qty : 1 on 08/13/2022 by Landon Nickerson MD at [facility] [employer] Clip Implant N/A: Abdomen [employer] Easy [id number] 02/21/2025 [id number] / / [id number] Description:JE junction Procedures Procedure Name Priority Date/Time Associated Diagnosis Comments HEMOGLOBIN, GLYCOSYLATED Routine 08/12/2022 8:40 AM SOLAR SYSTEM INSTALLER LIPID PANEL Routine 04/02/2019 from Last 3 Months or Most Recently Relevant to Health Maintenance Results * (ABNORMAL) HEMOGLOBIN, GLYCOSYLATED (08/12/2022 8:40 AM SOLAR SYSTEM INSTALLER) HGB A1C 7.2(H) <5.7 % 08/12/2022 1:45 PM SOLAR SYSTEM INSTALLER [facility] Comment: ADA GUIDELINES 2010 5.7 TO 6.4% INCREASED RISK OF DIABETES > OR = 6.5% CONSISTENT WITH DIABETES ESTIMATED AVG GLUCOSE 160 mg/dL 08/12/2022 1:45 PM SOLAR SYSTEM INSTALLER [facility] 08/12/2022 8:40 AM SOLAR SYSTEM INSTALLER Edin Markham APRN LABORATORY Final Result [facility] [address] [place] [address], * (ABNORMAL) LIPID PANEL (04/02/2019) CHOLESTEROL 173 100 - 199 HDL 55 >=39 TRIGLYCERIDES 84 0 - 149 LDL (CALCULATED) 101(A) 0 - 99 VLDL CALCULATION 17 5 - 40 04/02/2019 Doc [facility] LABORATORY Final Result from Last 3 Months or Most Recently Relevant to Health Maintenance Insurance MEDICARE MEDICARE AETNA [facility] Advance Directives * Full Code (Latest Code Status on File) Date Activated Date Inactivated Comments 08/12/2022 3:43 PM 08/14/2022 6:12 PM Care Teams Steam Clothes Press Operator Relationship Specialty Start Date End Date Ian Jaeger MD [address] [place] [address] PCP - General INTERNAL MEDICINE 08/12/22 Ebenezer Magallanes MD [address] [place] [id number] [place] Account Technician CARDIOVASCULAR DISEASE 05/19/19
[2025-03-25 11:12] LABS: Hematocrit 40.1 % (42.0-52.0); Hemoglobin 12.0 g/dL (14.0-18.0); Immature Granulocyte Percent A 1.2 % (0-0.5); Lymphocytes Absolute Auto 0.76 K/mm3 (0.9-3.2); Mean Corpuscular HGB Conc 29.9 g/dl (32-36); Mean Corpuscular Hemoglobin 25.4 pg (26-34); Mean Corpuscular Volume 84.8 fl (80-100); Nucleated Red Blood Cells Absolute Auto 0.000 K/mm3 (0.0-0.012); Nucleated Red Blood Cells Perc 0.0 % (0.0-0.2); Platelet Count Result 248 k/mm3 (150-375); Red Blood Count 4.73 M/mm3 (4.6-6.20)
[2025-03-25 11:14] LABS: White Blood Count 1.6 K/mm3 (4.5-10.0)
[2025-03-25 11:19] LABS: Schistocytes None Seen
[2025-03-25 11:23] LABS: Anisocytosis 2+; Hypochromasia 1+
[2025-03-25 13:24] LABS: Iron 43 ug/dL (49-181)
[2025-03-25 13:26] LABS: Alanine Aminotransferase 12 U/L (6-50); Albumin Level 3.9 g/dL (3.5-5.1); Alkaline Phosphatase 92 U/L (38-126); Anion Gap 10 mmol/L (4-12); Aspartate Amino Transferase 29 U/L (17-59); Bilirubin,Total 0.4 mg/dL (0.2-1.3); Blood Urea Nitrogen 12 mg/dL (9-20); Calcium 9.4 mg/dL (8.4-10.2); Carbon Dioxide 26 mmol/L (22-30); Chloride 102 mmol/L (98-107); Estimated Glomerular Filt Rate > 60; Glucose 103 mg/dL (65-110); Potassium 4.4 mmol/L (3.4-5.0); Sodium 138 mmol/L (137-145); Total Protein 8.2 g/dL (6.3-8.2)
[2025-03-25 13:54] LABS: Percent Iron Saturation 15 % (20-50)
[2025-03-25 14:16] LABS: Ferritin 41.80 ng/mL (11.1-264)
[2025-03-25 14:53] LABS: Vitamin B12 446.0 pg/mL (239-931)
== END 2025-03-25 10:52 | disposition home or self-care (01) ==
LOC: ANHLAB 10:53
PROVIDERS: PCP Emergency Medicine; Visit Provider Internal Medicine Hematology & Oncology
DX: D64.9 Anemia, unspecified (principal)
CPT/HCPCS: 36415; 80053; 82607; 82728; 82746; 83540; 83550; 83921; 84238; 85025

== ENCOUNTER 2025-06-24 13:32 | Outpatient (CLI) | payer MEDICARE, OTHER, SELFPAY ==
--- OUTSIDE RECORDS SUMMARY | 2025-06-24 14:09 | XMS_ITS | Clinical Summary ---
Author Organization [facility] [address] Address [address] [place] [address] Care Team Providers Care Roll Edge Stitcher Hand Name Role Phone Ian Jaeger MD Primary [...] FOOD 90 tablet 3 08/04/20 24 Active metoprolol XL (TOPROL-XL) 25 mg extended release tablet TAKE 1 TABLET BY MOUTH EVERY DAY 90 tablet 2 12/24/19 25 Active Additional Information Patient taking differently: 12.5 mgoral Daily, Reported on 06/18/2025 oxyCODONE-acet aminophen (PERCOCET) 5-325 mg per tablet Take by mouth every 6 (six) hours as needed 12/22/19 25 Active ferrous sulfate 325 mg (65 mg of elemental iron) tablet Take 1 tablet (325 mg total) by mouth 2 (two) times a day 12/14/19 25 Active Brilinta 60 mg tabletIndicati ons:Coronary artery disease of ekuk artery of ekuk heart with stable angina pectoris TAKE 1 TABLET BY MOUTH TWICE A DAY 180 tablet 2 01/19/20 25 Active nitroglycerin (NITROSTAT) 0.4 mg SL tabletIndicati ons:Coronary artery disease involving ekuk coronary artery of ekuk heart without angina pectoris Place 1 tablet [...] DAY 90 tablet 2 03/15/20 25 Active sacubitriL-dorota sartan (ENTRESTO) 24-26 mg tablet TAKE 1 TABLET BY MOUTH TWICE A DAY 180 tablet 2 04/19/20 25 Active Jardiance 10 mg tablet TAKE 1 TABLET BY MOUTH EVERY DAY 90 tablet 3 05/13/20 25 Active evolocumab (Repatha Syringe) syringe syringe Inject 1 mL (140 mg total) under the skin every 14 (fourteen) days 6 mL 3 06/14/20 25 Active evolocumab (Repatha Syringe) syringe syringe INJECT 1 ML (140 MG) SUBCUTANEOUSLY EVERY 14 DAYS 2 mL 1 05/13/20 25 025 Discontin ued(Reord er) Active Problems Problem Noted Date Diagnosed Date PVC (premature ventricular contraction) 06/15/20 20 Overview (06/15/2020): Added automatically from request for surgery [id number] Preoperative cardiovascular examination 02/26/20 Bradycardia 02/26/2020 Ventricular bigeminy 02/26/2020 Gastroesophageal reflux disease 03/25/2019 Bone lesion 04/01/2018 Hyperlipidemia associated with type 2 diabetes m ellitus 06/10/2017 Hypertension associated with diabetes 06/10/2017 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 05/29/2016 Overview (11/15/2016): Coronary artery disease involving ekuk coronary artery of ekuk heart without angina pectoris Chronic systolic heart [...] Encounters Date Type Department Care Team Description 06/24/2025 2:30 PM LEGISLATIVE CORRESPONDENT Ancillary Procedure [facility] Cardiology [address] [place] [address] PVC (premature ventricular contraction); Accelerated junctional rhythm 06/18/2025 10:00 AM LEGISLATIVE CORRESPONDENT Office Visit [facility] Cardiology [address] [place] [phone] Leeanna Jean Baptiste NP Chronic heart failure with reduced ejection fraction (HFrEF, <= 40%) ([facility]) (Primary Dx); PVC (premature ventricular contraction); Accelerated junctional rhythm; Coronary artery disease involving ekuk coronary artery of ekuk heart without angina pectoris 06/18/2025 Telephone [facility] Cardiology [address] [place] [address] Leeanna Jean Baptiste NP from Last 3 Months Immunizations Immunization Administration Dates Next Due Influenza, Unspecified 05/12/2020 Surgical History Surgery Date Site/Laterality Comments CARDIAC CATHETERIZATION 08/12/2016 - 08/11/2017 Prox LAD stent, later attempt to reaccess was unsuccessful 2017 Medical History Medical History Date Comments Hx Other Medical HTN, h/o VT, , obesity, hyperlipidemia, dentures,; Comments: MAF 04/26/2016 - Coronary artery stenosis Coronar y artery stenosis Hyperlipidemia Hypertension Diabetes mellitus COPD (chronic obstructive pu lmonary disease) GERD [...] on file Legal Sex Male 4:13 AM LEGISLATIVE CORRESPONDENT Gender Identity Not on file Sexual Orientation Not on file Last Filed Vital Signs Vital Sign Reading Time Taken Comments Blood Pressure 90/56 06/18/2025 9:55 AM LEGISLATIVE CORRESPONDENT Pulse 88 06/18/2025 9:55 AM LEGISLATIVE CORRESPONDENT Temperature 36.5 C (97.7 F) 11/15/2020 11:14 AM CDT Respiratory Rate 19 07/25/2020 5:50 PM LEGISLATIVE CORRESPONDENT Oxygen Saturation 96% 06/18/2025 9:55 AM LEGISLATIVE CORRESPONDENT Inhaled Oxygen Concentration - - Weight 68.5 kg (151 lb) 06/18/2025 9:55 AM LEGISLATIVE CORRESPONDENT Height 177.8 cm (5' 10) 06/18/2025 9:55 AM LEGISLATIVE CORRESPONDENT Body Mass Index 21.67 06/18/2025 9:55 AM LEGISLATIVE CORRESPONDENT Plan of Treatment Upcoming Encounters Date Type Department Care Team (Latest Contact Info) Description 06/24/2025 2:30 PM LEGISLATIVE CORRESPONDENT Ancillary Procedure [facility] Cardiology [address] [place] [address] PVC (premature ventricular contraction); Accelerated junctional rhythm Health Maintenance Due Date Last Done Comments [...] Additional history exists Influenza Vaccine (#1) 2025 4, 06/10/2020, 05/12/2020, Additional history exists Pneumococcal vaccine 65+ Completed 019, 05/14/2016, 06/07/2015 Abdominal Aortic Aneurysm (A AA) Screen Completed 08/12/2022 Medical Devices Implanted Type Area Warehouse Unloader Device Identifier Shelf Expiration Date Model / Serial / Lot ralali [employer] Inc [id number] System 6-12fr Mvp Venous Closure Vascade - [id number] Implanted:Qty: 1 on 07/25/2020 by Florentin Lopez MD at [facility] Collagen [employer] 05/03/2022 800-612C-1 [id number] / / [id number] [employer] [id number] System 6-12fr Mvp Venous Closure Vascade - [id number] Implanted:Qty: 1 on 07/25/2020 by Florentin Lopez MD at [facility] [employer] 05/10/2022 800-612C-1 [id number] / / [id number] [employer] [id number] System 6-12fr Mvp Venous Closure Vascade - [id number] Implanted:Qty: 1 on 07/25/2020 by Florentin Lopez MD at [facility] [employer] 05/10/2022 800-612C-1 [id number] / / [id number] [employer] [id number] System 6-12fr Mvp Venous Closure Vascade - [id number] Implanted:Qty: 1 on 07/25/2020 by Florentin Lopez MD at [facility] [employer] 05/03/2022 800-612C-1 [id number] / / [id number] Stent Chest Description:proximal LAD p er daughter in law Procedures Procedure Name Priority Date/Time Associated Diagnosis Comments ELECTROCARDIOGRAM REPORT Routine 025 1:31 PM LEGISLATIVE CORRESPONDENT PVC (premature ventricular contraction) Accelerated junctional rhythm Coronary artery disease involving ekuk coronary artery of ekuk heart without angina pectoris LIPID PANEL Routine 07/12/2023 Coronary artery disease of ekuk artery of ekuk heart with stable angina pectoris from Last 3 Months or Most Recently Relevant to Health Maintenance Results * Electrocardiogram Report (06/18/2025 1:31 PM LEGISLATIVE CORRESPONDENT) Leeanna Jean Baptiste [facility] ECG ORDERABLES Final Res ult * Lipid panel (07/12/2023) SCRIBED Cholesterol, Total 120 0 - 200 EXTERNAL LAB SCRIBED HDL 45 40 - 100 EXTERNAL LAB SCRIBED LDL 56 0 - 100 EXTERNAL LAB SCRIBED Triglycerides 82 0 - 150 EXTERNAL LAB Blood 07/12/2023 Jaime Pratt MD LAB BLOOD ORDERABLES Myra hutchinson Result EXTERNAL LAB from Last 3 Months or Most Recently Relevant to Health Maintenance Insurance [facility]ICARE [facility] MEDICARE MEDICARE [facility] Care Teams Roll Edge Stitcher Hand Relationship Specialty Start Date End Date Ian Jaeger MD [address] [place] [address] PCP - General Emergency Medicine 08/17/22
--- OUTSIDE RECORDS SUMMARY | 2025-06-24 14:09 | XMS_ITS | Clinical Summary ---
Author Organization [facility] Address [address] [place] [address] Care Team Providers Care Clinical Product Specialist Name Role Phone Ebenezer Magalalnes MD Unavailable Ian Jaeger MD Primary Care Provider + [phone] Allergies Active Allergy Reactions Criticality Noted Date [...] (08/12/2022): Added automatically from request for surgery [id number] Bradycardia 02/26/2020 Ventricular bigeminy 02/26/2020 Gastroesophageal reflux disease 03/25/2019 Bone lesion 04/01/2018 Chronic systolic heart failure 05/29/2016 Overview (08/12/2022): Chronic systolic (congestive) heart failure Coronary artery disease of n ative artery of marshall heart with stable angina pectoris 05/29/2016 Overview (08/12/2022): Coronary artery disease involving marshall coronary artery of marshall heart without angina pectoris Obstructive sleep apnea syndrome 05/29/2016 Overview (08/12/2022): Obstructive sleep apnea Cardiomyopathy 04/26/2016 Overview (08/12/2022): Cardiomyopathy Dyspnea on exertion 04/26/2016 Overview (08/12/2022): Dyspnea on effort [id number] 03/23/2016 Hypertension associated with diabetes 05/18/2013 Overview (08/12/2022): Essential hypertension Diabetes mellitus 05/18/2013 Hyperlipidemia 05/18/2013 Overview (08/12/2022): Hyperlipidemia LDL [...] A1C 02/09/2023 08/12/2022 COVID-19 Vaccine (4 - 2024-2 6 season) 2025 12/21/2021, 05/13/2021, 10/09/2020 Influenza Adult (#1) 2025 05/12/2020, 06/21/2019 Pneumococcal Vaccine: 50+ Years Completed 06/21/2019, 05/14/2016, 06/07/2015 Hepatitis A Vaccines Aged Out No long er eligible based on patient's age to complete this topic Meningococcal B Vaccine Aged Out No l [...] Macario RN Medical Devices Implanted Type Area Personnel Quality Assurance Auditor Device Identifier Shelf Expiration Date Model / Serial / Lot Clip Resolution 2.8mm 360 235cm 11mm Open - [id number] Implanted:Qty : 1 on 08/13/2022 by Landon Nickerson MD at [facility] Clip Implant N/A: Abdomen [employer] [id number] 02/21/2025 [id number] / / [id number] Description:JE junction Procedures Procedure Name Priority Date/Time Associated Diagnosis Comments HEMOGLOBIN, GLYCOSYLATED Routine 08/12/2022 8:40 AM ASSOCIATE PROFESSOR OF HISTORY LIPID PANEL Routine 04/02/2019 from Last 3 Months or Most Recently Relevant to Health Maintenance Results * (ABNORMAL) HEMOGLOBIN, GLYCOSYLATED (08/12/2022 8:40 AM ASSOCIATE PROFESSOR OF HISTORY) HGB A1C 7.2(H) <5.7 % 08/12/2022 1:45 PM ASSOCIATE PROFESSOR OF HISTORY [facility] Comment: ADA GUIDELINES 2010 5.7 TO 6.4% INCREASED RISK OF DIABETES > OR = 6.5% CONSISTENT WITH DIABETES ESTIMATED AVG GLUCOSE 160 mg/dL 08/12/2022 1:45 PM ASSOCIATE PROFESSOR OF HISTORY [facility] 08/12/2022 8:40 AM ASSOCIATE PROFESSOR OF HISTORY us Edin Markham [facility] Final Result [facility] [address] [place] [address], * (ABNORMAL) LIPID PANEL (04/02/2019) CHOLESTEROL 173 100 - 199 HDL 55 >=39 TRIGLYCERIDES 84 0 - 149 LDL (CALCULATED) 101(A) 0 - 99 VLDL CALCULATION 17 5 - 40 04/02/2019 us Doc [facility]AT[facility] Final Result from Last 3 Months or Most Recently Relevant to Health Maintenance Insurance MEDICARE MEDICARE AET[employer] [facility] Advance Directives * Full Code (Latest Code Status on File) Date Activated Date Inactivated Comments 08/12/2022 3:43 PM 08/14/2022 6:12 PM Care Teams Clinical Product Specialist Relationship Specialty Start Date End Date Ian Jaeger MD [address] [address] PCP - General INTERNAL MEDICINE 08/12/22 Ebenezer Magallanes MD [address] [place] [address] [place] Shop Assistant CARDIOVASCULAR DISEASE 05/19/19
--- OUTSIDE RECORDS SUMMARY | 2025-06-24 14:09 | XMS_ITS | Encounter Summary ---
Author Organization [facility] Healthcare Address [address] [place] [address] Care Team Providers Care Survey Technologist Name Role Phone Ian Jaeger MD Primary Care Provide r Encounter Details Date Type Department Care Team (Late st Contact Info) Description 12/08/2024 Orders Only [facility] Health Information Management [address] [place] [id number] Scanning, Provider Social History Tobacco Use Types Packs/Day Years Used Date Smoking Tobacco: Every Day Cigarettes Smokeless Tobacco: Former Alcohol Use Standard Drinks/Week Comments No 0 (1 standard drink = 0.6 oz pur e alcohol) Sex and Gender Information Value Date Recorded Sex Assigned at Not on file Legal Sex Male 4:13 AM JOB HONER Gender Identity Not on file Sexual Orientation Not on file documented as of this encounter Plan of Treatment Upcoming Encounters Date Type Department Care Team (Latest Contact Info) Description 06/24/2025 2:30 PM JOB HONER Ancillary Procedure [facility] Cardiology [address] [facility] [address] [place] [address] PVC (premature ventricular contraction); Accelerated junctional rhythm documented as of this encounter Procedures Procedure Name Priority Date/Time Associated Diagnosis Comments SCAN - RADIOLOGY/IMAGING 12/08/2024 CARDIOLOGY DOCUMENT SCAN 12/08/2024 documented in this encounter Results * SCAN - RADIOLOGY/IMAGING (12/08/2024) Anatomical Region Laterality Modality Other Provider Scanning Final Result * Cardiology Document Scan (12/08/2024) Anatomical Region Laterality Modality Other us Provider Scanning [facility] PROCEDURES Final Result documented in this encounter Visit Diagnoses Not on filedocumented in this encounter Care Teams Survey Technologist Relationship Specialty Start Date End Date Ian Jaeger MD [address] [place] [address] PCP - General Emergency Medicine 08/17/22 documented as of this encounter
--- OUTSIDE RECORDS SUMMARY | 2025-06-24 14:09 | XMS_ITS | Encounter Summary ---
Author Organization [facility] Address [address] [place] [address] Care Team Providers Care Planner Chief Name Role Phone No, Physician Primary Care Provider [phone] Rinku Glover MD Primary Care Provider [phone] Ian Jaeger MD Primary Care Provide r Encounter Details Date Type Department Care Team (Late st Contact Info) Description 08/23/2016 Orders Only [facility] ProviderAyala MD [address] [place], [place] [id number] Social History Tobacco Use Types Packs/Day Years Used Date Smoking Tobacco: Former Alcohol Use Standard Drinks/Week Comments No 0 (1 standard drink = 0.6 oz pur e alcohol) Sex and Gender Information Value Date Recorded Sex Assigned at Not on file Legal Sex Male 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 Gender Identity Not on file Sexual Orientation Not on file documented as of this encounter Plan of Treatment Upcoming Encounters Date Type Department Care Team (Latest Contact Info) Description 06/24/2025 2:30 PM BURNER SHAFT Ancillary Procedure [facility] Cardiology [address] [place] [address] PVC (premature ventricular contraction); Accelerated junctional rhythm documented as of this encounter Procedures Procedure Name Priority Date/Time Associated Diagnosis Comments CARDIOLOGY REPORT 08/23/2016 documented in this encounter Results * CARDIOLOGY REPORT (08/23/2016) Anatomical Region Laterality Modality Other Narrative 08/23/2016 Ordered by an unspecified provider. us Historical Provider [facility] JOSE BERGER Final Result documented in this encounter Visit Diagnoses Not on filedocumented in this encounter Care Teams Planner Chief Relationship Specialty Start Date End Date No, Physician PCP - General 04/03/17 06/09/17 Rinku Glover MD [address] [place] [address] PCP - General Internal Medicine 06/10/17 08/16/22 Ian Jaeger MD [address] [place] [address] PCP - General Emergency Medicine 08/17/22 documented as of this encounter
--- OUTSIDE RECORDS SUMMARY | 2025-06-24 14:09 | XMS_ITS | Encounter Summary ---
Author Organization [facility] Healthcare Address [address] [place] [address] Care Team Providers Care Chief Of Vital Statistics Name Role Phone Rinku Glover MD Primary Care Provider [phone] Ian Jaeger MD Primary Care Provide r Encounter Details Date Type Department Care Team (Late st Contact Info) Description 02/06/2018 Orders Only [facility] Health Information Management [address] [place] [address] Scanning, Provider Social History Tobacco Use Types Packs/Day Years Used Date Smoking Tobacco: Former Cigarettes Q uit: 05/11/2016 Smokeless Tobacco: Never Alcohol Use Standard Drinks/Week Comments No 0 (1 standard drink = 0.6 oz pur e alcohol) Sex and Gender Information Value Date Recorded Sex Assigned at Not on file Legal Sex Male 4:13 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 Cardiology [address] [place] [address] PVC (premature ventricular contraction); Accelerated junctional rhythm documented as of this encounter Procedures Procedure Name Priority Date/Time Associated Diagnosis Comments SCAN - RADIOLOGY/IMAGING 02/06/2018 SCAN - LABS 02/06/2018 documented in this encounter Results * SCAN - LABS (02/06/2018) us Provider Scanning Final Result * SCAN - RADIOLOGY/IMAGING (02/06/2018) Anatomical Region Laterality Modality Other us Provider Scanning Final Result documented in this encounter Visit Diagnoses Not on filedocumented in this encounter Care Teams Chief Of Vital Statistics Relationship Specialty Start Date End Date Rinku Glover MD [address] [place] [address] PCP - General Internal Medicine 06/10/17 08/16/22 Ian Jaeger MD [address] [place], [place] [phone] PCP - General Emergency Medicine 08/17/22 documented as of this encounter
--- OUTSIDE RECORDS SUMMARY | 2025-06-24 14:09 | XMS_ITS | Clinical Summary ---
Author Organization [facility] Alexander ervin [facility] Address [address] [address] Care Team Providers Care Tower Switch Operator Name Role Phone Ian Jaegre MD Primary Care Provider + [phone] Allergies Active Allergy Reactions Criticality Noted Date [...] Encounters Date Type Department Care Team Description 06/02/2025 External Device Data STL ABSTRACTION Provider, Abstract 06/01/2025 External Device Data STL ABSTRACTION Provider, Abstract 04/27/2025 External Device Data [facility] ABSTRACTION Provider, Abstract 04/27/2025 External Device Data [facility] ABSTRACTION Provider, Abstract 04/05/2025 Orders Only [facility] Oncology and Hematology [facility] [address] [place] [address] Rui Ellsworth MD 04/01/2025 4:30 PM CDT Telephone Check Up [facility] Oncology and Hematology [facility] [address] [place] [address] Rui Ellsworth MD Chronic anemia (Primary Dx) 03/31/2025 External Device Data ST[facility] ABSTRACTION Provider, Abstract 03/30/2025 External Device Data [facility] ABSTRACTION Provider, Abstract 03/30/2025 External Device Data [facility] ABSTRACTION Provider, Abstract 03/29/2025 Orders Only [facility] Oncology and Hematology [facility] [address] [place] [address] Rui Ellsworth MD 03/25/2025 10:30 AM CDT Office Visit [facility] Oncology and Hematology [facility] [address] [place] [address] Rui Ellsworth MD Chronic anemia (Primary Dx) from Last 3 Months Family History Medical History Relation Name Comments No Known Problems Brother No Known Problems Child Heart Disease Father Breast Cancer Mother Relation Name Status Comments Brother Alive Child Alive Father Mother Social History Tobacco Use Types Packs/Day Years Used Date Smoking Tobacco: Every Day Cigarettes 0.5 65.2 Started: [birth year]/25/1960 Smokeless Tobacco: Former Tobacco Cessation:Ready [...] Care Team (Late st Contact Info) Description 07/13/2025 2:45 PM LADIES ATTENDANT Office Visit [facility] Oncology and Hematology - [place] [address] [place] [address] Rui Ellsworth MD [address] [facility] [address] [place] [address] Health Maintenance Due Date Last Done Comments DIABETES ANNUAL FOOT EXAM 1961 DIABETES ANNUAL RETINAL EXAM 1961 DIABETES MICROALBUMIN ANNUAL SCREEN 1961 LDL CHOLESTEROL ANNUAL 1961 DTAP/TDAP/TD VACCINES (1 - Tdap) 1962 Traditional Medicare (ACO) A nnual Wellness Visit 1962 ZOSTER VACCINE (1 of 2) 1993 RSV VACCINE (60+ or ) (1 - 1-dose 75+ series) 2018 DIABETES HBA1C Q 6 MONTHS 02/09/2023 08/12/2022 INFLUENZA VACCINE (#1) 2025 4, 05/08/2023, 04/02/2022, Additional history exists PNEUMOCOCCAL VACCINE 50+ YEARS Completed 1 08/21/2018, 05/14/2016, 06/07/2015 Procedures Procedure Name Priority Date/Time Associated Diagnosis Comments CHG SOLUBLE TRANSFERRIN RECEPTOR Routine 03/25/2025 1:57 PM CDT METHYLMALONIC ACID Routine 03/25/2025 12 :35 PM CDT COMPREHENSIVE METABOLIC PANEL Routine 03/25/2025 12:26 PM CDT from Last 3 Months Results * CHG SOLUBLE TRANSFERRIN RECEPTOR (03/25/2025 1:57 PM CDT) us Rui Ellsworth MD CHG - LABORATORY Final Result * METHYLMALONIC ACID (03/25/2025 12:35 PM CDT) Blood us Rui Ellsworth MD CHEMISTRY ORDERABLES Final Resu lt * COMPREHENSIVE METABOLIC PANEL (03/25/2025 12:26 PM CDT) Blood us Rui Ellsworth MD CHEMISTRY ORDERABLES Final Resu lt from Last 3 Months Insurance MEDICARE PART A AND B [employer] CHOICE POS II Care Teams Tower Switch Operator Relationship Specialty Start Date End Date Ian Jageer MD [address] [place] [phone] PCP - General Internal Medicine 03/25/25
--- OUTSIDE RECORDS SUMMARY | 2025-06-24 14:30 | XMS_ITS | Encounter Summary ---
Author Organization [facility] Healthcare Address [address] [place] [address] Care Team Providers Care Change Management Lead Name Role Phone Ian Jaeger MD Primary Care Provide r Reason for Visit * Cardiology (Routine) - Closed Specialty Diagnoses / Procedures Referred By Contac t Referred To Contact Diagnoses PVC (premature ventricular contraction) Accelerated junctional rhythm Procedures 48 HR Holter Monitor Leeanna Jean Baptiste NP [address] [facility] [address] [address] Phone: tel: fax: Referral ID Status Reason Start Date Expiration Date Visits Re quested Visits Authorized [id number] Closed 06/18/2025 07/18/2026 1 1 Encounter Details Date Type Department Care Team (Latest Contact Info) Description 06/24/2025 2:30 PM TABLE SETTER Ancillary Procedure [facility] Medical Group Cardiology [address] [place] [phone] PVC (premature ventricular contraction); Accelerated junctional rhythm Social History Tobacco Use Types Packs/Day Years Used Date Smoking Tobacco: Every Day Cigarettes Smokeless Tobacco: Former Alcohol Use Standard Drinks/Week Comments No 0 (1 standard drink = 0.6 oz pur e alcohol) Sex and Gender Information Value Date Recorded Sex Assigned at Not on file Legal Sex Male 4:13 AM TABLE SETTER Gender Identity Not on file Sexual Orientation Not on file documented as of this encounter Plan of Treatment Pending Results Name Type Priority Associated Diagnoses Date /Time 48 HR Holter Monitor Cardiac Services Routine PVC (premature ventricular contraction) Accelerated junctional rhythm 06/24/2025 1:15 PM TABLE SETTER documented as of this encounter Visit Diagnoses Diagnosis PVC (premature ventricular contraction) Other premature beats Accelerated junctional rhythm documented in this encounter Care Teams Change Management Lead Relationship Specialty Start Date End Date Ian Jaeger MD [address] [place] [address] PCP - General Emergency Medicine 08/17/22 documented as of this encounter
[2025-06-24 14:34] LABS: Hemoglobin A1C 5.6 % (<5.7)
[2025-06-24 14:35] LABS: Alanine Aminotransferase 13 U/L (6-50); Albumin Level 4.0 g/dL (3.5-5.1); Alkaline Phosphatase 109 U/L (38-126); Anion Gap 8 mmol/L (4-12); Aspartate Amino Transferase 25 U/L (17-59); Bilirubin,Total 0.4 mg/dL (0.2-1.3); Blood Urea Nitrogen 19 mg/dL (9-20); Calcium 9.1 mg/dL (8.4-10.2); Carbon Dioxide 26 mmol/L (22-30); Chloride 102 mmol/L (98-107); Cholesterol 108 mg/dL (0-200); Estimated Glomerular Filt Rate > 60; Glucose 108 mg/dL (65-110); HDL Direct 39 mg/dL; Potassium 3.9 mmol/L (3.4-5.0); Sodium 136 mmol/L (137-145); Total Protein 8.2 g/dL (6.3-8.2); Triglycerides 76 mg/dL (<150)
[2025-06-24 16:46] LABS: MALB Creatinine Ratio 52.6 mg/g (0-30)
== END 2025-06-24 13:33 | disposition home or self-care (01) ==
LOC: ANHLAB 13:34
PROVIDERS: PCP Emergency Medicine; Visit Provider Emergency Medicine
DX: E78.5 Hyperlipidemia, unspecified (principal); E11.9 Type 2 diabetes mellitus without complications; E55.9 Vitamin D deficiency, unspecified
CPT/HCPCS: 36415; 80053; 80061; 82043; 82306; 83036

== ENCOUNTER 2025-07-02 11:04 | Outpatient (CLI) | payer MEDICARE, OTHER, SELFPAY ==
--- OUTSIDE RECORDS SUMMARY | 2025-07-02 11:09 | XMS_ITS | Encounter Summary ---
Author Organization [facility] Healthcare Address [address] [place] [address] Care Team Providers Care Explosives Handler Name Role Phone Rinku Glover MD Primary Care Provider [phone] Ian Jaeger MD Primary Care Provide r Encounter Details Date Type Department Care Team (Late st Contact Info) Description 02/06/2018 [place] Only [facility] [place] Management [address] [place] [address] Scanning, Provider Social History Tobacco Use Types Packs/Day Years Used Date Smoking Tobacco: Former Cigarettes Q uit: 05/11/2016 Smokeless Tobacco: Never Alcohol Use Standard Drinks/Week Comments No 0 (1 standard drink = 0.6 oz pur e alcohol) Sex and Gender Information Value Date Recorded Sex Assigned at Not on file Legal Sex Male 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
--- OUTSIDE RECORDS SUMMARY | 2025-07-02 11:09 | XMS_ITS | Clinical Summary ---
Author Organization [facility] ([facility] ervin [facility] Address [address] [place] [address] Care Team Providers Care Tanning Solution Maker Name Role Phone Ian Jaeger MD Primary Care Provider [phone] Allergies Active Allergy Reactions Criticality Noted Date [...] STL ABSTRACTION Provider, Abstract 04/05/2025 Orders Only [facility] Oncology and Hematology - Jas [address] [place] [address] Rui Ellsworth MD 04/01/2025 4:30 PM CDT Telephone Check Up [facility] Oncology and Hematology - Jas [address] [place] [address] Rui Ellsworth MD Chronic anemia (Primary Dx) from Last 3 Months Family History Medical History Relation Name Comments No Known Problems Brother No Known Problems Child Heart Disease Father Breast Cancer Mother Relation Name Status Comments Brother Alive Child Alive Father Mother Social History Tobacco Use Types Packs/Day Years Used Date Smoking Tobacco: Every Day Cigarettes 0.5 65.3 Started: 03/25/1960 Smokeless Tobacco: Former Tobacco Cessation:Ready [...] st Contact Info) Description 07/13/2025 2:45 PM FRONT LINE SUPERVISOR Office Visit [facility] Oncology and Hematology - Jas [address] [facility] [address] [place] [address] Rui Ellsworth MD [address] [place] [address] Health Maintenance Due Date Last Done Comments DIABETES ANNUAL FOOT EXAM 1961 DIABETES ANNUAL RETINAL EXAM 1961 DIABETES MICROALBUMIN ANNUAL SCREEN 1961 LDL CHOLESTEROL ANNUAL 1961 DTAP/TDAP/TD VACCINES (1 - Tdap) 1962 ZOSTER VACCINE (1 of 2) 1993 RSV VACCINE (60+ or ) (1 - 1-dose 75+ series) 2018 DIABETES HBA1C Q 6 MONTHS 02/09/2023 08/12/2022 PNEUMOCOCCAL VACCINE 50+ YEARS Completed 1 08/21/2018, 05/14/2016, 06/07/2015 INFLUENZA VACCINE Completed 06/30/2025, , 05/08/2023, Additional history exists Insurance MEDICARE PART A AND B [employer] CHOICE POS II Care Teams Tanning Solution Maker Relationship Specialty Start Date End Date Ian Jaeger MD [address] [place] [phone] PCP - General Internal Medicine 03/25/25
--- OUTSIDE RECORDS SUMMARY | 2025-07-02 11:09 | XMS_ITS | Encounter Summary ---
Author Organization [facility] Address [address] [place] [address] Care Team Providers Care Radar Repairer Name Role Phone No, Physician Primary Care Provider [phone] Rinku Glover MD Primary Care Provider [phone] Ian Jaeger MD Primary Care Provide r Encounter Details Date Type Department Care Team (Late st Contact Info) Description 08/23/2016 Orders Only [facility] ProviderAyala MD [address] [place] [address] Social History Tobacco Use Types Packs/Day Years Used Date Smoking Tobacco: Former Alcohol Use Standard Drinks/Week Comments No 0 (1 standard drink = 0.6 oz pur e alcohol) Sex and Gender Information Value Date Recorded Sex Assigned at Not on file Legal Sex Male 4:13 AM RN CORRECTIONS Gender Identity Not on file Sexual Orientation [...] on filedocumented in this encounter Care Teams Radar Repairer Relationship Specialty Start Date End Date No, Physician PCP - General 04/03/17 06/09/17 Rinku Glover MD [address] [place] [address] PCP - General Internal Medicine 06/10/17 08/16/22 Ian Jaeger MD [address] [place] [address] PCP - General Emergency Medicine 08/17/22 documented as of this encounter
--- OUTSIDE RECORDS SUMMARY | 2025-07-02 11:09 | XMS_ITS | Clinical Summary ---
Author Organization [facility] [place] [address] Address [address] [place] [address] Care Team Providers Care Adult Ministries Director Name Role Phone Ian Jaeger MD Primary [...] 60 mg tabletIndicati ons:Coronary artery disease of [place] artery of [place] heart with stable angina pectoris TAKE 1 TABLET BY MOUTH TWICE A DAY 180 tablet 2 01/19/20 25 Active nitroglycerin (NITROSTAT) 0.4 mg SL tabletIndicati ons:Coronary artery disease involving [place] coronary artery of [place] heart without angina pectoris Place 1 tablet [...] (06/15/2020): Added automatically from request for surgery [id number] Preoperative cardiovascular examination 02/26/20 Bradycardia 02/26/2020 Ventricular bigeminy 02/26/2020 Gastroesophageal reflux disease 03/25/2019 Bone lesion 04/01/2018 Hyperlipidemia associated with type 2 diabetes m ellitus 06/10/2017 Hypertension associated with diabetes 06/10/2017 Coronary artery disease of n ative artery of [place] heart with stable angina pectoris 05/29/2016 Overview (11/15/2016): Coronary artery disease involving [place] coronary artery of [place] heart without angina pectoris Chronic systolic heart [...] Encounters Date Type Department Care Team Description 07/01/2025 Results Follow-Up [facility] Cardiology [address] [place] [phone] Leeanna Jean Baptiste NP 48 HR Holter Monitor 06/30/2025 Telephone [facility] Cardiology [address] [place] [address] [address] [place] [phone] Jaime Pratt MD 06/24/2025 2:30 PM CRM ARCHITECT Ancillary Procedure [facility] Cardiology [address] [place] [address] [place] [phone] PVC (premature ventricular contraction); Accelerated junctional rhythm 06/18/2025 10:00 AM CRM ARCHITECT Office Visit [facility] Cardiology [address] [place] [address] [place] [phone] Leeanna Jean Baptiste NP Chronic heart failure with reduced ejection fraction (HFrEF, <= 40%) (HCC) (Primary Dx); PVC (premature ventricular contraction); Accelerated junctional rhythm; Coronary artery disease involving [place] coronary artery of [place] heart without angina pectoris 06/18/2025 Telephone [facility] Cardiology [address] [place] [address] [place] [phone] Leeanna Jean Baptiste NP from Last 3 [...] on file Legal Sex Male 4:13 AM CRM ARCHITECT Gender Identity Not on file Sexual Orientation Not on file Last Filed Vital Signs Vital Sign Reading Time Taken Comments Blood Pressure 90/56 06/18/2025 9:55 AM CRM ARCHITECT Pulse 88 06/18/2025 9:55 AM CRM ARCHITECT Temperature 36.5 C (97.7 F) 11/15/2020 11:14 AM CDT Respiratory Rate 19 07/25/2020 5:50 PM CRM ARCHITECT Oxygen Saturation 96% 06/18/2025 9:55 AM CRM ARCHITECT Inhaled Oxygen Concentration - - Weight 68.5 kg (151 lb) 06/18/2025 9:55 AM CRM ARCHITECT Height 177.8 cm (5' 10) 06/18/2025 9:55 AM CRM ARCHITECT Body Mass Index 21.67 06/18/2025 9:55 AM CRM ARCHITECT Plan of Treatment Health Maintenance Due Date [...] Additional history exists Influenza Vaccine (#1) 2025 , 06/10/2020, 05/12/2020, Additional history exists Pneumococcal vaccine 65+ Completed 019, 05/14/2016, 06/07/2015 Abdominal Aortic Aneurysm (A AA) Screen Completed 08/12/2022 Medical Devices Implanted Type Area Autocad Operator Device Identifier Shelf Expiration Date Model / Serial / Lot [employer] [id number] System 6-12fr Mvp Venous Closure Vascade - [id number] Implanted:Qty: 1 on 07/25/2020 by Florentin Lopez MD at [facility] [employer] 05/03/2022 800-612C-1 [id number] / / [id number] [employer] [id number] System 6-12fr Mvp Venous Closure Vascade - [id number] Implanted:Qty: 1 on 07/25/2020 by Florentin Lopez MD at [facility] [employer] 05/10/2022 800-612C-1 [id number] / / [id number] [employer] [id number] System 6-12fr Mvp Venous Closure Vascade - [id number] Implanted:Qty: 1 on 07/25/2020 by Florentin Lopez MD at [facility] [employer] 05/10/2022 800-612C-1 [id number] / / [id number] [employer] [id number] System 6-12fr Mvp Venous Closure Vascade - [id number] Implanted:Qty: 1 on 07/25/2020 by Florentin Lopez MD at [facility] [employer] 05/03/2022 800-612C-1 [id number] / / [id number] Stent Chest Description:proximal LAD p er daughter in law Procedures Procedure Name Priority Date/Time Associated Diagnosis Comments HOLTER MONITOR 48 HR Routine 06/24/2025 1:15 PM CRM ARCHITECT PVC (premature ventricular contraction) Accelerated junctional rhythm ELECTROCARDIOGRAM REPORT Routine 025 1:31 PM CRM ARCHITECT PVC (premature ventricular contraction) Accelerated junctional rhythm Coronary artery disease involving [place] coronary artery of [place] heart without angina pectoris LIPID PANEL Routine 07/12/2023 Coronary artery disease of [place] artery of [place] heart with stable angina pectoris from Last 3 Months or Most Recently Relevant to Health Maintenance Results * 48 HR Holter Monitor (06/24/2025 1:15 PM CRM ARCHITECT) Anatomical Region Laterality Modality Electrocardiogra phy Narrative 06/30/2025 1:46 PM CRM ARCHITECT AMBULATORY BILLING ADJUDICATOR REPORT Patient Name: Yaneli Frank Date of : 1945 Requesting Physician: Leeanna Jean Baptiste NP Date of interpretation: 06/30/25 Type of monitor : 48 hour Holter monitor Date of the study/Enrollment period: 06/24/2025-06/26/2025 Indication: Ventricular premature depolarization Quality of the study: Adequate Interpretation: Underlying rhythm is sinus rhythm, heart rate 45-126 beats per minute, average heart rate 73 beats per minute. QRS wide from bundle branch block. Frequent supraventricular ectopy was noted in the form of PACs and episodes of brief SVT; total supraventricular ectopic burden documented at 20 worsened. Occasional ventricular ectopy with a burden of 1% for the duration of the study. No other significant arrhythmias noted. No symptoms reported. Conclusions: Predominant underlying rhythm is sinus rhythm, average heart rate 73 beats per minute. QRS widening due to bundle branch block. Supraventricular ectopy in the form of PACs and episodes of brief SVT with total supraventricular ectopic burden 20%; occasional ventricular ectopy with a burden of 1% for the duration of the study. No other significant arrhythmias. No symptoms reported. Voice recognition software was used to complete this document, therefore, assistant facility manager variances may occur. Ernesto Patrick MD, [facility] 06/30/25 Procedure Note Ernesto Patrick MD - 06/30/2025 AMBULATORY BILLING ADJUDICATOR REPORT Patient Name: Yaneli Frank Date of : 1945 Requesting Physician: Leeanna Jean Baptiste NP Date of interpretation: 06/30/25 Type of monitor : 48 hour Holter monitor Date of the study/Enrollment period: 06/24/2025-06/26/2025 Indication: Ventricular premature depolarization Quality of the study: Adequate Interpretation: Underlying rhythm is sinus rhythm, heart rate 45-126beats per minute, average heart rate 73 beats per minute. QRS wide frombundle branch block. Frequent supraventricular ectopy was noted in theform of PACs and episodes of brief SVT; total supraventricular ectopicburden documented at 20 worsened. Occasional ventricular ectopy with aburden of 1% for the duration of the study. No other significantarrhythmias noted. No symptoms reported. Conclusions: Predominant underlying rhythm is sinus rhythm, average heart rate 73 beatsper minute. QRS widening due to bundle branch block. Supraventricular ectopy in the form of PACs and episodes of brief SVT withtotal supraventricular ectopic burden 20%; occasional ventricular ectopywith a burden of 1% for the duration of the study. No other significant arrhythmias. No symptoms reported. Voice recognition software was used to complete this document, therefore,assistant facility manager variances may occur. Ernesto Patrick MD, [facility] 06/30/25 Leeanna Jean Baptiste NP [facility] PROCE DURES Final Result * Electrocardiogram Report (06/18/2025 1:31 PM CRM ARCHITECT) Leeanna Jean Baptiste NP ECG ORDERABLES Final Res ult * Lipid panel (07/12/2023) SCRIBED Cholesterol, Total 120 0 - 200 EXTERNAL LAB SCRIBED HDL 45 40 - 100 EXTERNAL LAB SCRIBED LDL 56 0 - 100 EXTERNAL LAB SCRIBED Triglycerides 82 0 - 150 EXTERNAL LAB Blood 07/12/2023 Jaime Pratt MD LAB BLOOD ORDERABLES Myra jasper Result EXTERNAL LAB from Last 3 Months or Most Recently Relevant to Health Maintenance Insurance [facility]IC[facility] AETNA Care Teams Adult Ministries Director Relationship Specialty Start Date End Date Ian Jaeger MD [address] [place], [place] [phone] PCP - General Emergency Medicine 08/17/22
--- OUTSIDE RECORDS SUMMARY | 2025-07-02 11:09 | XMS_ITS | Encounter Summary ---
Author Organization [facility] Healthcare Address [address] [place] [address] Care Team Providers Care Floor Coverings Salesperson Name Role Phone Ian Jaeger MD Primary Care Provide r Encounter Details Date Type Department Care Team (Late st Contact Info) Description 12/08/2024 Orders Only [facility] [place] Health Information Management [address] [place] [address] Scanning, Provider Social History Tobacco Use Types Packs/Day Years Used Date Smoking Tobacco: Every Day Cigarettes Smokeless Tobacco: Former Alcohol Use Standard Drinks/Week Comments No 0 (1 standard drink = 0.6 oz pur e alcohol) Sex and Gender Information Value Date Recorded Sex Assigned at Not on file Legal Sex Male 4: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
--- OUTSIDE RECORDS SUMMARY | 2025-07-02 11:09 | XMS_ITS | Clinical Summary ---
Author Organization [facility] Address [address] [place] [address] Care Team Providers Care Senior Administrative Assistant Name Role Phone Ebenezer Magallanes MD Unavailable [phone] Ian Jaeger MD Primary Care Provider [phone] Allergies Active Allergy Reactions Criticality Noted Date Comments Lisinopril Unknown,Anaphylaxis,Swelling High 016 Statins Other (see comment) 12/21/2024 Medications PROAIR HFA 108 (90 BASE) MCG/ACT inhaler Inhale 2 puffs into the lungs every 4 (four) hours as needed for Shortness of breath or Wheezing. 0 03/27/20 16 Active latanoprost 0.005 % ophthalmic solution Place 1 drop into both eyes nightly at bedtime. 3 03/20/20 16 Active aspirin EC (ECOTRIN) 81 MG tablet Take 1 tablet (81 mg total) by mouth daily. Active metFORMIN 500 MG tablet Take 1-2 tablets (500-1,000 mg total) by mouth see administration instructions. Takes 2 tablet (1000 mg) in AM and 1 tablet (500 mg) in PM 0 04/19/20 19 Active metoprolol succinate ER 25 MG 24 hr tablet Take 1 tablet (25 mg total) by mouth daily. 3 03/30/20 19 Active pantoprazole EC 40 MG tablet Take 1 tablet (40 mg total) by mouth daily. 11 03/25/20 19 Active potassium chloride CR 20 MEQ Tab CR tablet Take 1 tablet (20 mEq total) by mouth daily. 3 03/27/20 19 Active ENTRESTO 24-26 MG tablet Take 1 tablet by mouth 2 (two) times daily. 3 03/30/20 19 Active BRILINTA 60 MG tablet Take 1 tablet (60 mg total) by mouth 2 (two) times daily. 04/22/20 Active furosemide (LASIX) 40 MG tablet Take 1 mg by mouth 2 (two) times daily. 04/02/20 Active JARDIANCE 10 MG tablet Take 1 tablet (10 mg total) by mouth daily. 01/06/20 Active REPATHA 140 MG/ML injection (SYRINGE) Inject 1 mL (140 mg total) into the skin every 14 (fourteen) days. 01/20/20 Active ferrous sulfate EC 325 (65 Fe) MG tablet Take 1 tablet (325 mg total) by mouth 2 (two) times daily. 12/14/19 Active fluticasone-sa lmeterol (ADVAIR DISKUS) 250-50 MCG/ACT inhaler Inhale 1 puff into the lungs 2 (two) times daily. 03/28/20 Active nitroglycerin (NITROSTAT) 0.[address] 1 tablet (0.4 mg total) under the tongue every 5 (five) minutes as needed. FOR CHEST PAIN 02/03/20 Active oxyCODONE-acet aminophen (PERCOCET) 5-325 MG tablet Take 1 tablet by mouth every 8 (eight) hours as needed for Pain. 12/22/19 Active tamsulosin (FLOMAX) 0.4 MG Cap Take 1 capsule (0.4 mg total) by mouth daily. 01/15/20 Active Cyanocobalamin (VITAMIN B-12) 50 MCG Tab Take 50 mcg by mouth daily. Active SYMBICORT 160-4.5 MCG/ACT inhaler Inhale 2 puffs into the lungs 2 (two) times daily. 05/10/20 025 Discontin ued(Error ) PRALUENT 75 MG/ML injection (PEN) Inject 75 mg into the skin every 14 (fourteen) days. Injects every other Wednesdays07/25/20 025 Discontin ued(Error ) Active Problems Problem Noted Date Diagnosed Date Chest pain 06/29/2025 Acute GI bleeding 08/12/2022 PVC (premature ventricular contraction) 06/15/20 Overview (08/12/2022): Added automatically from request for surgery [id number] Bradycardia 02/26/2020 Ventricular bigeminy 02/26/2020 Gastroesophageal reflux disease 03/25/2019 Bone lesion 04/01/2018 Chronic systolic heart failure 05/29/2016 Overview (08/12/2022): Chronic systolic (congestive) heart failure Coronary artery disease of n ative artery of [place] heart with stable angina pectoris 05/29/2016 Overview (08/12/2022): Coronary artery disease involving [place] coronary artery of [place] heart without angina pectoris Obstructive sleep apnea syndrome 05/29/2016 Overview (08/12/2022): Obstructive sleep apnea Cardiomyopathy 04/26/2016 Overview (08/12/2022): Cardiomyopathy Dyspnea on exertion 04/26/2016 Overview (08/12/2022): Dyspnea on effort Sbtvp-rrtwr-marembelw 03/23/2016 Hypertension associated with diabetes 05/18/2013 Overview (08/12/2022): Essential hypertension Diabetes mellitus 05/18/2013 Hyperlipidemia 05/18/2013 Overview (08/12/2022): Hyperlipidemia LDL goal <70 Restless legs syndrome 05/18/2013 Umbilical hernia 05/18/2013 (aortic stenosis) S/P drug eluting coronary stent placement Dyslipidemia Resolved Problems Problem Noted Date Diagnosed Date Resolved Date Preoperative cardiovascular examination 02/26/2020 08/13/2022 Encounters Date Type Department Care Team Description 06/29/2025 4:43 AM DEPUTY FIRE CHIEF - 06/30/2025 2:39 PM DEPUTY FIRE CHIEF Hospital Encounter [facility] [place] [address] [place] [address] Shannen Parekh MD Dale, Maurice D, DO Crawford, Jemila Maxine, MD Chest Pain Discharge Disposition: Home or Self Care (Routine Discharge) 06/29/2025 Travel from Last 3 Months Immunizations Immunization Administration Dates Next Due Fluzone (IIV3, Trivalent, 0.5 ML Prefilled Syrin ge) 06/30/2025 Social History Tobacco Use Types Packs/Day Years [...] Information Value Date Recorded Sex Assigned at Male 06/29/2025 2:52 PM DEPUTY FIRE CHIEF Legal Sex Male 8:36 PM CDT Gender Identity Male 06/29/2025 2:52 PM DEPUTY FIRE CHIEF Sexual Orientation Straight 06/29/2025 2: 52 PM DEPUTY FIRE CHIEF Last Filed Vital Signs Vital Sign Reading Time Taken Comments Blood Pressure 104/60 06/30/2025 11:22 AM DEPUTY FIRE CHIEF Pulse 81 06/30/2025 11:22 AM DEPUTY FIRE CHIEF Temperature 37.3 C (99.1 F) 06/30/2025 11:22 AM DEPUTY FIRE CHIEF Respiratory Rate 21 06/30/2025 11:22 AM DEPUTY FIRE CHIEF Oxygen Saturation 99% 06/30/2025 11:22 AM DEPUTY FIRE CHIEF Inhaled Oxygen Concentration - - Weight 69.9 kg (154 lb 1.6 oz) 06/30/2025 3:37 A M DEPUTY FIRE CHIEF Height 177.8 cm (5' 10) 06/29/2025 4:51 AM DEPUTY FIRE CHIEF Body Mass Index 22.11 06/29/2025 4:51 AM DEPUTY FIRE CHIEF Plan of Treatment Health Maintenance Due Date Last Done Comments Kidney Health Evaluation 1945 Diabetes: Retinopathy Eye Exam 1961 DTaP, Tdap and Td Vaccines (1 - Tdap) 1962 Zoster Vaccines (1 of 2) 1993 Annual Medicare Wellness Visit 2008 RSV Immunization or 60+ Years (1 - 1-dose 75+ series) 2018 ASCVD LDL 04/02/2020 04/02/2019, 02/28/2016 Lipid Panel 04/02/2020 04/02/2019 Hemoglobin A1C 02/09/2023 08/12/2022 COVID-19 Vaccine ( season) 2025 12/21/2021, 05/13/2021, 10/09/2020 Pneumococcal Vaccine: 50+ Years Completed 06/21/2019, 05/14/2016, 06/07/2015 Influenza Adult Completed 06/30/2025, 03/13, 05/12/2020, Additional history exists Hepatitis A Vaccines Aged Out No long er eligible based on patient's age to complete this topic Meningococcal B Vaccine Aged Out No l onger eligible based on patient's age to complete this topic Meningococcal Vaccine Aged Out No domenico jerrod eligible based on patient's age to complete this topic RSV Immunizations Under 20 Months Aged Out No longer eligible based on patient's age to complete this topic Goals Goal Patient Goal Type Associated Problems Recent Progress Patient-Stated? Author Health - patient able to perform ADLs independently Lifestyle No Brandon Macario RN Medical Devices Implanted Type Area Traffic Line Painter Device Identifier Shelf Expiration Date Model / Serial / Lot Clip Resolution 2.8mm 360 235cm 11mm Open - [id number] Implanted:Qty : 1 on 08/13/2022 by Landon Nickerson MD at [facility] [employer] Clip Implant N/A: Abdomen ReelSurfer [id number] 02/21/2025 [id number] / / [id number] Description:JE junction Procedures Procedure Name Priority Date/Time Associated Diagnosis Comments POCT GLUCOSE - DOCKED DEVICE Routine 06/30/2025 10:53 AM DEPUTY FIRE CHIEF POCT GLUCOSE - DOCKED DEVICE Routine 06/30/2025 6:02 AM DEPUTY FIRE CHIEF MAGNESIUM Routine 06/30/2025 5:39 AM DEPUTY FIRE CHIEF BASIC METABOLIC PANEL Routine 06/30/2025 5:39 AM DEPUTY FIRE CHIEF HC CBC AUTO W/AUTO DIFF Routine 06/30/20 25 5:39 AM DEPUTY FIRE CHIEF POCT GLUCOSE - DOCKED DEVICE Routine 06/29/2025 7:12 PM DEPUTY FIRE CHIEF USE ECHOCARDIOGRAM W CON Today 06/29/2025 4:07 PM DEPUTY FIRE CHIEF POCT GLUCOSE - DOCKED DEVICE Routine 06/29/2025 2:39 PM DEPUTY FIRE CHIEF RESPIRATORY PCR PNL LIMITED STAT 06/29/2025 11:18 AM DEPUTY FIRE CHIEF CTA CHEST PE PROTOCOL STAT 06/29/2025 6:36 AM DEPUTY FIRE CHIEF ECG 12-LEAD STAT 06/29/2025 6:21 AM DEPUTY FIRE CHIEF TROPONIN, QUANT STAT 06/29/2025 6:18 AM DEPUTY FIRE CHIEF XR CHEST PORTABLE STAT 06/29/2025 4:5 3 AM DEPUTY FIRE CHIEF PRO-BRAIN NATRIURETIC PEPTIDE Routine 06/29/2025 4:46 AM DEPUTY FIRE CHIEF TROPONIN, QUANT STAT 06/29/2025 4:46 AM DEPUTY FIRE CHIEF COMPREHENSIVE METABOLIC PANEL STAT 06/29/2025 4:46 AM DEPUTY FIRE CHIEF HC CBC AUTO W/AUTO DIFF STAT 06/29/20 4:46 AM DEPUTY FIRE CHIEF ECG 12-LEAD Routine 06/29/2025 4:37 AM DEPUTY FIRE CHIEF HEMOGLOBIN, GLYCOSYLATED Routine 08/12/2022 8:40 AM DEPUTY FIRE CHIEF LIPID PANEL Routine 04/02/2019 from Last 3 Months or Most Recently Relevant to Health Maintenance Results * (ABNORMAL) POCT glucose (06/30/2025 10:53 AM DEPUTY FIRE CHIEF) Only the most recent of4 resultswithin the time period is included. GLUCOSE POC 125(H) 70 - 99 mg/dL 06/30/2025 11:08 AM DEPUTY FIRE CHIEF [facility] 06/30/2025 10:5 3 AM DEPUTY FIRE CHIEF us Marcos Mahajan MD POCT ORDERABLES - ZOHRA CE Final Result [facility] [address] [place] [address], [place] [phone] * MAGNESIUM (06/30/2025 5:39 AM DEPUTY FIRE CHIEF) [facility] MAGNESIUM 2.3 1.8 - 2.4 MG/DL 06/30/2025 6:39 AM DEPUTY FIRE CHIEF [facility] BLOOD VENOUS BLOOD SPECIMEN / Unknown 06/30/2025 5:39 AM DEPUTY FIRE CHIEF Lisseth Jimenez NP LABORATORY Final Result [facility] [address] [place] [address], * (ABNORMAL) CBC W/DIFF AUTOMATED (06/30/2025 5:39 AM DEPUTY FIRE CHIEF) Only the most recent of2 resultswithin the time period is included. [facility] WBC 1.89(LL) 4.5 - 11.0 x10'3/uL 06/30/2025 7:13 AM [facility] Comment: This result has been called to LARISSA SONI by [id number] on 06/30/2025 07:13:02, and has been read back. RBC 4.44(L) 4.70 - 6.10 x10'6/uL 06/30/2025 7:13 AM [facility] HGB 11.4(L) 14.0 - 18.0 G/DL 06/30/2025 7:13 AM [facility] HCT 36.5(L) 43.0 - 54.0 % 06/30/2025 7:13 AM [facility] MCV 82.2 80.0 - 94.0 FL 06/30/2025 7:13 AM [facility] MCH 25.7(L) 27.0 - 31.0 PG 06/30/2025 7:13 AM [facility] MCHC 31.2(L) 32.0 - 36.0 G/DL 06/30/2025 7:13 AM [facility] RDW 17.7(H) 11.5 - 14.5 % 06/30/2025 7:13 AM [facility] PLT 275 130 - 400 x10'3/uL 06/30/2025 7:13 AM [facility] MPV 9.9 9.3 - 12.2 FL 06/30/2025 7:13 AM [facility] DIFFERENTIAL TYPE MANUAL DIFFERENTIAL 06/30/2025 7:13 AM [facility] SEG NEUTROPHILS 33 % 7:13 AM [facility] LYMPHOCYTES 57 % 06/30/2025 7:13 AM [facility] MONOCYTES 8 % 06/30/2025 7:13 AM [facility] EOSINOPHILS 2 % 06/30/2025 7:13 AM [facility] ABS. NEUTROPHILS 0.62(L) 1.80 - 7.70 x10'3/uL 06/30/2025 7:13 AM [facility] ABS. LYMPHOCYTES 1.08 1.00 - 4.80 x10'3/uL 06/30/2025 7:13 AM [facility] ABS. MONOCYTES 0.15(L) 0.30 - 0.82 x10'3/uL 06/30/2025 7:13 AM [facility] ABS. EOSINOPHILS 0.04 0.04 - 0.54 x10'3/uL 06/30/2025 7:13 AM [facility] RBC MORPHOLOGY RBC MORPHOLOGY APPEARS NORMAL. SLIDE REVIEWED. 06/30/2025 7:13 AM [facility] PLT EST. ADEQUATE 06/30/2025 7:13 AM [facility] BLOOD VENOUS BLOOD SPECIMEN / Unknown 06/30/2025 5:39 AM DEPUTY FIRE CHIEF Lisseth Jimenez NP LABORATORY Final Result [facility] [address] [place] [address], [place] [phone] * (ABNORMAL) BASIC METABOLIC PANEL (06/30/2025 5:39 AM DEPUTY FIRE CHIEF) GLUCOSE 135(H) 70 - 99 MG/DL 06/30/2025 6:39 AM [facility] BUN 15 7 - 18 MG/DL 06/30/2025 6:39 AM [facility] CREATININE S/P/B 0.52(L) 0.7 - 1.3 MG/DL 06/30/2025 6:39 AM [facility] SODIUM S/P/B 139 136 - 145 MMOL/L 06/30/2025 6:39 AM [facility] POTASSIUM S/P/B 3.5 3.5 - 5.1 MMOL/L 06/30/2025 6:39 AM [facility] CHLORIDE S/P/B 108 97 - 115 MMOL/L 06/30/2025 6:39 AM [facility] CO2 27.6 21 - 32 MMOL/L 06/30/2025 6:39 AM [facility] CALCIUM S/P/B 9.1 8.5 - 10.1 MG/DL 06/30/2025 6:39 AM [facility] ANION GAP 3.4 2 - 10 MMOL/L 06/30/2025 6:39 AM [facility] BUN CREATININE RATIO 28.8(H) 6 - 26 06/30/2025 6:39 AM DEPUTY FIRE CHIEF [facility] GFR ESTIMATE >90 >90 ML/MIN/1.7 3 M2 06/30/2025 6:39 AM DEPUTY FIRE CHIEF [facility] Comment: NOTE: eGFR is not calculated for patients <18 years of age or gender unknown. This is an estimated GFR calculation using the new CKD EPI creatinine equation without race and so does not require a correction factor for race. This estimated GFR should not be used for calculating drug doses. BLOOD VENOUS BLOOD SPECIMEN / Unknown 06/30/2025 5:39 AM DEPUTY FIRE CHIEF Lisseth Jimenez NP LABORATORY Final Result [facility] [address] [place] [address], * USE ECHOCARDIOGRAM W CON (06/29/2025 4:07 PM DEPUTY FIRE CHIEF) Anatomical Region Laterality Modality NA Echocardiogram 06/29/2025 4:24 PM DEPUTY FIRE CHIEF Narrative 06/30/2025 8:44 AM DEPUTY FIRE CHIEF Echocardiography Report Pat.Name: PHILL MONAE Pat.ID: [id number] .Date: 06/29/2025 Exam Time: 4:24:00 PM Study Type:ECHO WITH CARDIAC DOPPLER COMP Height: 70 in Weight: 180 lb BSA: 2 m2 Age: 904/29/1945,80Y Sex: M BP: 95/52 HR: 75 bpm Sonogrphr: Taylor Louise RDCS Pat. Stat.:Inpatient Room: 407 Reason for Study:Chest pain Procedures: 2D, M-mode, Doppler, Color Flow, Definity was used to enhance endocardial definition. The study quality is technically difficult. Race: W ++++++++++++++++++++++++++++++++++++ SUMMARY: ++++++++++++++++++++++++++++++++++++ Left ventricle is severely enlarged and dysfunctional Estimated EF of 20-25% Diastolic dysfunction. Right ventricle is enlarged with normal function Mild mitral and tricuspid regurgitation Normal estimated pulmonary pressures Aortic root is mildly dilated. ++++++++++++++++++++++++++++++++++++ FINDINGS: ++++++++++++++++++++++++++++++++++++ LV: The left ventricular size is severely enlarged. The left ventricular systolic function is severely depressed. Estimated left ventricular ejection fraction is 20-25%. No concentric left ventricular hypertrophy. Left ventricular diastolic function is abnormal (grade 3b - irreversible restrictive filling). WM: There is global hypokinesis with minor regional variation. RV: The right ventricular size is mildly enlarged. Right ventricular systolic function is normal. IVS: Intraventricular septum is normal. LA: The left atrial volume is normal ( less than 34 ml/M2). RA: Right atrial size is mildly enlarged. IAS: Atrial septum appears intact. MILADYS: No evidence of pericardial effusion. AO: Aortic root is mildly dilated. SVn: Inferior vena cava is mildly enlarged. Inferior vena cava shows <50% collapse with respiration consistent with elevated right atrial pressure. AV: The aortic valve is trileaflet. No evidence of aortic valve stenosis. No evidence of aortic valve regurgitation. MV: Structurally normal mitral valve. Mild mitral regurgitation. No evidence of mitral stenosis. PV: The pulmonic valve is normal There is trace pulmonic regurgitation TV: Structurally normal tricuspid valve. Mild tricuspid regurgitation. Right ventricular systolic pressure is 28 mmHg. ++++++++++++++++++++++++++++++++++++ MEASUREMENTS: ++++++++++++++++++++++++++++++++++++ DOPPLER LVOT LVOTpkPG 3 mmHg LVOTmnPG 2 mmHg LVOTpkVel 91.5 cm/s (70-110)+ LVOT SV 85 ml LVOT TVI 16.1 cm Right Atrium RA Press 15 mmHg Wilhelm's Disk 20 Pulmonary Veins PVnpkVeld 35.4 cm/s PVnVs/Vd 1.6 PVnpkVels 55.3 cm/s PVn A Dur 176 msec AV Forward Flow AV TVI 23.2 cm AV pkPG 6 mmHg AV pkVel 122 cm/s (100-170)+ Area (TVI) 3.68 cm2 (3-5) AV mnPG 3 mmHg Area (Dickson) 3.98 cm2 (3-5) MV Forward Flow MV DeTm 239 msec MV E/A 0.6 MVA P1/2t 3.14 cm2 (4-6)* MV pkE 73.4 cm/s (60-130) MV P1/2t 70 msec (30-60)+* MV pkA 114 cm/s PV Forward Flow PV pkVel 92.3 cm/s (60-90)+* PV AC 112 msec PV pkPG 3 mmHg TV Regurg Flow TV pkPG 14 mmHg TV pkVel 190 cm/s (30-70)* Right Ventricle RVsys P 29 mmHg Right Ventricle 18.6 cm/s Lat E' Lat e 13.3 cm/s Lat E/E' Lat E/e 5.5 Med E' Med e 4.57 cm/s Med E/E' Med E/e 16.1 Aortic Valve Aortic Valve Ar 1.84 Aortic Valve Ve 0.75 AV DI Value 0.69 Left Ventricle LV IVRT 137 msec PV Antegrade Flow Acceleration Sl 740 cm/s2 2D Left Ventricle LVIDd 6.5 cm (3.6-5.2)* LV ESV 194 ml LVIDs 5.5 cm (2.3-3.9)* LV ESV 272 ml LngAxd 9.79 cm LVESV BP 235 ml LngAxd 10.8 cm LV EF 23.3 % LV EDV 253 ml LV EF 21.6 % LV EDV 347 ml LV EF BP 24.4 % LVEDV BP 311 ml LV SV 59 ml LngAxs 9.45 cm LV SV 75 ml LngAxs 9.92 cm LV SV BP 76 ml LVPW LVPWd 1 cm Ventricular Septum IVSd 0.9 cm Left Atrium LA a-p 3.8 cm (2.8-3.4)* LA VOLBP 51.5 ml Aorta Ao Rtd 3.7 cm [place] [place] LVOT LVOT 2.6 cm LVOTArea 5.31 cm2 Ratios IVS Inferior vena cava IVC Diam 26 mm LA Biplane LAVol I BP 25.8 ml/m2 RA Single Plane Right Atrium MO 9.71 mm Right Atrium Sy 55.9 ml Right Atrium Sy 55.9 mm Right Atrium Sy 28 ml/m2 Right Atrium Sy 20 cm2 Right Ventricle Right Ventricle 43 mm Right Ventricle 23 mm Major [place] 73 mm MMODE TA Tricuspid Annul 27.4 mm <Electronic Signature> 06/30/2025 08:44 AM Josr James M.D. Procedure Note Josr James MD - 06/30/2025 Echocardiography Report Pat.Name: PHILL MONAE Pat.ID: [id number] .Date: 06/29/2025 Exam Time: 4:24:00 PM Study Type:ECHO WITH CARDIAC DOPPLER COMP Height: 70 in Weight: 180 lb BSA: 2 m2 Age: 904/29/1945,80Y Sex: M BP: 95/52 HR: 75 bpm Sonogrphr: Taylor Louise RDCS Pat. Stat.:Inpatient Room: [facility] Reason for Study:Chest pain Procedures: 2D, M-mode, Doppler, Color Flow, Definity was used to enhance endocardial definition. The study quality is technically difficult. Race: W ++++++++++++++++++++++++++++++++++++ SUMMARY: ++++++++++++++++++++++++++++++++++++ Left ventricle is severely enlarged and dysfunctional Estimated EF of 20-25% Diastolic dysfunction. Right ventricle is enlarged with normal function Mild mitral and tricuspid regurgitation Normal estimated pulmonary pressures Aortic root is mildly dilated. ++++++++++++++++++++++++++++++++++++ FINDINGS: ++++++++++++++++++++++++++++++++++++ LV: The left ventricular size is severely enlarged. The left ventricular systolic function is severely depressed. Estimated left ventricular ejection fraction is 20-25%. No concentric left ventricular hypertrophy. Left ventricular diastolic function is abnormal (grade 3b - irreversible restrictive filling). WM: There is global hypokinesis with minor regional variation. RV: The right ventricular size is mildly enlarged. Right ventricular systolic function is normal. IVS: Intraventricular septum is normal. LA: The left atrial volume is normal ( less than 34 ml/M2). RA: Right atrial size is mildly enlarged. IAS: Atrial septum appears intact. MILADYS: No evidence of pericardial effusion. AO: Aortic root is mildly dilated. SVn: Inferior vena cava is mildly enlarged. Inferior vena cava shows <50% collapse with respiration consistent with elevated right atrial pressure. AV: The aortic valve is trileaflet. No evidence of aortic valve stenosis. No evidence of aortic valve regurgitation. MV: Structurally normal mitral valve. Mild mitral regurgitation. No evidence of mitral stenosis. PV: The pulmonic valve is normal There is trace pulmonic regurgitation TV: Structurally normal tricuspid valve. Mild tricuspid regurgitation. Right ventricular systolic pressure is 28 mmHg. ++++++++++++++++++++++++++++++++++++ MEASUREMENTS: ++++++++++++++++++++++++++++++++++++ DOPPLER LVOT LVOTpkPG 3 mmHg LVOTmnPG 2 mmHg LVOTpkVel 91.5 cm/s (70-110)+ LVOT SV 85 ml LVOT TVI 16.1 cm Right Atrium RA Press 15 mmHg Wilhelm's Disk 20 Pulmonary Veins PVnpkVeld 35.4 cm/s PVnVs/Vd 1.6 PVnpkVels 55.3 cm/s PVn A Dur 176 msec AV Forward Flow AV TVI 23.2 cm AV pkPG 6 mmHg AV pkVel 122 cm/s (100-170)+ Area (TVI) 3.68 cm2 (3-5) AV mnPG 3 mmHg Area (Dickson) 3.98 cm2 (3-5) MV Forward Flow MV DeTm 239 msec MV E/A 0.6 MVA P1/2t 3.14 cm2 (4-6)* MV pkE 73.4 cm/s (60-130) MV P1/2t 70 msec (30-60)+* MV pkA 114 cm/s PV Forward Flow PV pkVel 92.3 cm/s (60-90)+* PV AC 112 msec PV pkPG 3 mmHg TV Regurg Flow TV pkPG 14 mmHg TV pkVel 190 cm/s (30-70)* Right Ventricle RVsys P 29 mmHg Right Ventricle 18.6 cm/s Lat E' Lat e 13.3 cm/s Lat E/E' Lat E/e 5.5 Med E' Med e 4.57 cm/s Med E/E' Med E/e 16.1 Aortic Valve Aortic Valve Ar 1.84 Aortic Valve Ve 0.75 AV DI Value 0.69 Left Ventricle LV IVRT 137 msec PV Antegrade Flow Acceleration Sl 740 cm/s2 2D Left Ventricle LVIDd 6.5 cm (3.6-5.2)* LV ESV 194 ml LVIDs 5.5 cm (2.3-3.9)* LV ESV 272 ml LngAxd 9.79 cm LVESV BP 235 ml LngAxd 10.8 cm LV EF 23.3 % LV EDV 253 ml LV EF 21.6 % LV EDV 347 ml LV EF BP 24.4 % LVEDV BP 311 ml LV SV 59 ml LngAxs 9.45 cm LV SV 75 ml LngAxs 9.92 cm LV SV BP 76 ml LVPW LVPWd 1 cm Ventricular Septum IVSd 0.9 cm Left Atrium LA a-p 3.8 cm (2.8-3.4)* LA VOLBP 51.5 ml Aorta Ao Rtd 3.7 cm (zsc 2.5)* LVOT LVOT 2.6 cm LVOTArea 5.31 cm2 Ratios IVS Inferior vena cava IVC Diam 26 mm LA Biplane LAVol I BP 25.8 ml/m2 RA Single Plane Right Atrium MO 9.71 mm Right Atrium Sy 55.9 ml Right Atrium Sy 55.9 mm Right Atrium Sy 28 ml/m2 Right Atrium Sy 20 cm2 Right Ventricle Right Ventricle 43 mm Right Ventricle 23 mm Major [place] 73 mm MMODE TA Tricuspid Annul 27.4 mm <Electronic Signature> 06/30/2025 08:44 AM Josr James M.D. Harjeet Yip MD ECHO Final Res ult * RESPIRATORY PCR PNL LIMITED (FLU A/FLU B/RSV/COVID) (06/29/2025 11:18 AM DEPUTY FIRE CHIEF) SPEC DESCRIPTION NASOPHARYNGEAL SWAB 06/29/2025 11:18 AM DEPUTY FIRE CHIEF [facility] CORONAVIRUS SARS COV 2 PCR (RESP) NEGATIVE NEGATIVE 06/29/2025 12:17 PM DEPUTY FIRE CHIEF [facility] INFLUENZA A PCR (RESP) NEGATIVE NEGATIVE 06/29/2025 12:17 PM DEPUTY FIRE CHIEF [facility] INFLUENZA B PCR (RESP) NEGATIVE NEGATIVE 06/29/2025 12:17 PM DEPUTY FIRE CHIEF [facility] RSV PCR (RESP) NEGATIVE NEGATIVE 06/29/2025 12:17 PM DEPUTY FIRE CHIEF [facility] SWAB NASOPHARYNGEAL STRUCTURE / Unknown 06/29/2025 11:18 AM DEPUTY FIRE CHIEF Lisseth Jimenez NP MICROBIOLOGY - GENERAL ORDERA BLES Final Result [facility] [address] [place] [address], * CTA CHEST PE PROTOCOL (06/29/2025 6:36 AM DEPUTY FIRE CHIEF) Anatomical Region Laterality Modality Chest Computed Tomogra phy 06/29/2025 6:45 AM DEPUTY FIRE CHIEF Impressions 06/29/2025 6:56 AM DEPUTY FIRE CHIEF Impression: 1. No pulmonary embolism identified. 2. The heart is mildly enlarged. 3. The ascending thoracic aorta is mildly ectatic measuring 4 cm in diameter. 4. Probable bilateral adrenal adenomas. 5. Nonobstructing left renal stone. Referred By: Interpreted By: Jaime Yeager MD, 06/29/2025 6:45 AM Narrative 06/29/2025 6:56 AM DEPUTY FIRE CHIEF [address] [address] Examination: CT angiography of the chest with contrast, per pulmonary embolism protocol. Clinical Indication: PLEURITIC CHEST PAIN WITH SOB Comparison: CT abdomen and pelvis 08/12/2022. Technique: Chest CT angiography with IV contrast. Standard and MIP images were reviewed. IV contrast: 80 mL of Isovue-370. Dose reduction: This CT exam was performed using one or more of the following dose-reduction techniques: Automated exposure control, adjustment of the mA and/or kV according to patient size, and/or use of iterative reconstruction technique. Findings: PULMONARY ARTERIES: Exam quality: Satisfactory. Pulmonary embolism: No acute or chronic pulmonary embolism. Central pulmonary arteries: Normal caliber. HEART: Heart: No right heart strain. The heart is mildly enlarged. Aorta: The ascending thoracic aorta is mildly ectatic measuring 4 cm in diameter. Coronary arteries: No calcifications. Pericardium: Normal. No effusion, thickening, or calcification. MEDIASTINUM: Support tubes and lines: None. Base of neck/thyroid: Normal. Lymph nodes: No supraclavicular, axillary, internal mammary, mediastinal, or hilar adenopathy. Granulomatous calcifications are present. LUNGS AND PLEURA: Centrilobular emphysematous changes are noted. Granulomatous changes present within the right upper lobe. Dependent atelectasis. Bibasilar bronchial wall thickening and multifocal mucus plugging. UPPER ABDOMEN: Bilateral low-density adrenal nodules, similar to prior and likely represent adenomas. Partially included nonobstructed left renal stone measuring at least 7.5 mm. BONES/SOFT TISSUES: No focal lesion. Procedure Note Jaime Yeager MD - 06/29/2025 [facility] [address] [place], [place] [address] Examination: CT angiography of the chest with contrast, per pulmonaryembolism protocol. Clinical Indication: PLEURITIC CHEST PAIN WITH SOB Comparison: CT abdomen and pelvis 08/12/2022. Technique: Chest CT angiography with IV contrast. Standard and MIP images werereviewed. IV contrast: 80 mL of Isovue-370. Dose reduction: This CT exam was performed using one or more of thefollowing dose-reduction techniques: Automated exposure control,adjustment of the mA and/or kV according to patient size, and/or use ofiterative reconstruction technique. Findings: PULMONARY ARTERIES: Exam quality: Satisfactory. Pulmonary embolism: No acute or chronic pulmonary embolism. Central pulmonary arteries: Normal caliber. HEART: Heart: No right heart strain. The heart is mildly enlarged. Aorta: The ascending thoracic aorta is mildly ectatic measuring 4 cm indiameter. Coronary arteries: No calcifications. Pericardium: Normal. No effusion, thickening, or calcification. MEDIASTINUM: Support tubes and lines: None. Base of neck/thyroid: Normal. Lymph nodes: No supraclavicular, axillary, internal mammary, mediastinal,or hilar adenopathy. Granulomatous calcifications are present. LUNGS AND PLEURA: Centrilobular emphysematous changes are noted. Granulomatous changespresent within the right upper lobe. Dependent atelectasis. Bibasilarbronchial wall thickening and multifocal mucus plugging. UPPER ABDOMEN: Bilateral low-density adrenal nodules, similar to prior andlikely represent adenomas. Partially included nonobstructed left renalstone measuring at least 7.5 mm. BONES/SOFT TISSUES: No focal lesion. Impression: 1. No pulmonary embolism identified. 2. The heart is mildly enlarged. 3. The ascending thoracic aorta is mildly ectatic measuring 4 cm indiameter. 4. Probable bilateral adrenal adenomas. 5. Nonobstructing left renal stone. Referred By: Interpreted By: Jaime Yeager MD, 06/29/2025 6:45 AM Veronica Velasquez DO CT Final Result * ECG 12 lead (06/29/2025 6:21 AM DEPUTY FIRE CHIEF) Only the most recent of2 resultswithin the time period is included. ECG QT 375 [facility] RAD ECG QTC 424 [facility] ([facility] RAD 06/29/2025 6:21 AM DEPUTY FIRE CHIEF Narrative [facility] - 06/30/2025 12:41 PM DEPUTY FIRE CHIEF [place] [address] Test Date: 2025-06-29 Pat Name: PHILL MONAE Department: 41 Room: [facility] Gender: Male Hay Stacker: [id number] : 1945 Requested By: VERONICA VELASQUEZ Order Number: [id number] Reading MD: Joelle Leon Measurements Intervals [place] Rate: 77 P: 122 NE: 167 QRS: -61 QRSD: 149 T: 84 QT: 375 QTc: 424 Interpretive Statements SINUS RHYTHM WITH OCCASIONAL VENTRICULAR PREMATURE COMPLEXES LEFT AXIS DEVIATION [QRS AXIS < -30] LEFT BUNDLE BRANCH BLOCK [120+ ms QRS DURATION, 80+ ms Q/S IN V1/V2, 85+ ms R IN I/aVL/V5/V6] Compared to ECG 06/29/2025 04:37:19 No significant changes TY FIRE CHIEF Procedure Note Joelle Leon MD - 06/30/[address]25 [facility] [place] Test Date: 2025-06-29 Pat Name: PHILL MONAE Department: 41 Room: A407 Gender: Male Hay Stacker: [id number] : 1945 Requested By: VERONICA VELASQUEZ Order Number: [id number] Reading MD: Joelle Leon Measurements Intervals [place] Rate: 77 P: 122 NE: 167 QRS: -61 QRSD: 149 T: 84 QT: 375 QTc: 424 Interpretive Statements SINUS RHYTHM WITH OCCASIONAL VENTRICULAR PREMATURE COMPLEXES LEFT AXIS DEVIATION [QRS AXIS < -30] LEFT BUNDLE BRANCH BLOCK [120+ ms QRS DURATION, 80+ ms Q/S IN V1/V2, 85+ms R IN I/aVL/V5/V6] Compared to ECG 06/29/2025 04:37:19 No significant changes TY FIRE CHIEF us Veronica Velasquez DO ECG ORDERABLES Final Result [facility] * TROPONIN, QUANT (06/29/2025 6:18 AM DEPUTY FIRE CHIEF) Only the most recent of2 resultswithin the time period is included. TROPONIN I HIGH SENSITIVITY 11 <79 ng/L 06/29/2025 6:53 AM DEPUTY FIRE CHIEF [facility] Comment: HIGH DOSES OF BIOTIN, TROPONIN-SPECIFIC AUTOANTIBODIES, AND ANTIBODY THERAPY CONTAINING HAMA MAY INTERFERE WITH THIS TEST RESULT. CORRELATION TO CLINICAL HISTORY AND PRESENTATION RECOMMENDED. BLOOD VENOUS BLOOD SPECIMEN / Unknown 06/29/2025 6:18 AM DEPUTY FIRE CHIEF Veronica Velasquez DO LABORATORY Final Result Performing Organization Address City/[facility]/ZIP Co de Phone Number [facility] [address] [place] [address], [place] [phone] * XR CHEST PORTABLE (06/29/2025 4:53 AM DEPUTY FIRE CHIEF) Anatomical Region Laterality Modality Chest Radiographic Christine ging 06/29/2025 4:54 AM DEPUTY FIRE CHIEF Impressions 06/29/2025 5:01 AM DEPUTY FIRE CHIEF IMPRESSION:===== 1. No convincing acute/active cardiopulmonary radiographic finding 2.. Lung hyperinflation compatible with COPD Referred By: Interpreted By: Kole Neal MD, 06/29/2025 4:54 AM Narrative 06/29/2025 5:01 AM DEPUTY FIRE CHIEF [facility] [address] [place], [place] [address] Examination: Chest x-ray 1 view Exam date/time: 06/29/2025 4:45 AM Reason For Exam: 80 male. Sudden onset chest pain at night waking up from sleep left sided chest pain, nonradiating. Comparison: Chest x-ray the 08/12/2022 Technique: Portable Upright AP view of the chest . Findings: Stable normal cardiac size. Tortuous thoracic aorta. Trachea is normally positioned. Hilar and mediastinal contours are within normal limits. Pulmonary vasculature is normal. The there is lung hyperinflation with blunting of the CP angles which can be seen with COPD. Subcentimeter calcified granulomas present in the right lung. No consolidation or other focal airspace finding. No sizable effusion or pneumothorax seen. Upper abdomen is unremarkable. ===== Procedure Note Kole Neal MD - 06/29/[address] [address] Examination: Chest x-ray 1 view Exam date/time: 06/29/2025 4:45 AM Reason For Exam: 80 male. Sudden onset chest pain at night waking upfrom sleep left sided chest pain, nonradiating. Comparison: Chest x-ray the 08/12/2022 Technique: Portable Upright AP view of the chest . Findings: Stable normal cardiac size. Tortuous thoracic aorta. Tracheais normally positioned. Hilar and mediastinal contours are within normallimits. Pulmonary vasculature is normal. The there is lung hyperinflation with blunting of the CP angles which canbe seen with COPD. Subcentimeter calcified granulomas present in theright lung. No consolidation or other focal airspace finding. No sizableeffusion or pneumothorax seen. Upper abdomen is unremarkable. ===== IMPRESSION:===== 1. No convincing acute/active cardiopulmonary radiographic finding 2.. Lung hyperinflation compatible with COPD Referred By: Interpreted By: Kole Neal MD, 06/29/2025 4:54 AM us Shannen Parekh MD GENERAL IMAGING Final Result * (ABNORMAL) COMPREHENSIVE METABOLIC PANEL (06/29/2025 4:46 AM DEPUTY FIRE CHIEF) [facility] GLUCOSE 125(H) 70 - 99 MG/DL 06/29/2025 5:42 AM [facility] BUN 18 7 - 18 MG/DL 06/29/2025 5:42 AM [facility] CREATININE S/P/B 0.60(L) 0.7 - 1.3 MG/DL 06/29/2025 5:42 AM [facility] SODIUM S/P/B 138 136 - 145 MMOL/L 06/29/2025 5:42 AM [facility] POTASSIUM S/P/B 3.6 3.5 - 5.1 MMOL/L 06/29/2025 5:42 AM [facility] CHLORIDE S/P/B 105 97 - 115 MMOL/L 06/29/2025 5:42 AM [facility] CO2 26.8 21 - 32 MMOL/L 06/29/2025 5:42 AM [facility] CALCIUM S/P/B 9.1 8.5 - 10.1 MG/DL 06/29/2025 5:42 AM [facility] BILIRUBIN TOTAL S/P/B 0.4 0.2 - 1.2 MG/DL 06/29/2025 5:42 AM [facility] Comment: THIS ASSAY IS NOT RECOMMENDED FOR PATIENTS UNDERGOING TREATMENT WITH ELTROMBOPAG DUE TO THE POTENTIAL FOR FALSELY ELEVATED RESULTS. TOTAL PROTEIN S/P/B 7.3 6.4 - 8.2 G/DL 06/29/2025 5:42 AM [facility] ALBUMIN S/P/B 2.8(L) 3.4 - 5.0 G/DL 06/29/2025 5:42 AM [facility] AST 8(L) 15 - 37 U/L 06/29/2025 5:42 AM [facility] ALT 11(L) 16 - 60 U/L 06/29/2025 5:42 AM [facility] ALKALINE PHOSPHATASE S/P/B 97 50 - 136 U/L 06/29/2025 5:42 AM [facility] ANION GAP 6.2 2 - 10 MMOL/L 06/29/2025 5:42 AM [facility] BUN CREATININE RATIO 29.9(H) 6 - 26 06/29/2025 5:42 AM [facility] A/G RATIO 0.6(L) 1.0 - 2.0 RATIO 06/29/2025 5:42 AM [facility] GFR ESTIMATE >90 >90 ML/MIN/1.7 3 M2 06/29/2025 5:42 AM [facility] Comment: NOTE: eGFR is not calculated for patients <18 years of age or gender unknown. This is an estimated GFR calculation using the new CKD EPI creatinine equation without race and so does not require a correction factor for race. This estimated GFR should not be used for calculating drug doses. BLOOD VENOUS BLOOD SPECIMEN / Unknown 06/29/2025 4:46 AM DEPUTY FIRE CHIEF Shannen Parekh MD LABORATORY Final Result [facility] [address] [place] [address], * (ABNORMAL) PRO-BRAIN NATRIURETIC PEPTIDE (06/29/2025 4:46 AM DEPUTY FIRE CHIEF) PRO-B TYPE NATRIURETIC PEPTIDE 1,823(H) <450 PG/ML 06/29/2025 6:33 AM [facility] Comment: CUT POINTS ESTABLISHED BY INTERNATIONAL [employer] ON NT PROBNP (ICON) STUDY (2006). AGE INDEPENDENT: <300 PG/ML HAS A 99% NEGATIVE PREDICTIVE VALUE FOR EXCLUDING ACUTE CHF <50 YEARS: >450 PG/ML IS CONSISTENT WITH ACUTE CHF 50-75 YEARS: >900 PG/ML IS CONSISTENT WITH ACUTE CHF >75 YEARS: >1800 PG/ML IS CONSISTENT WITH ACUTE CHF IN PATIENTS WITH RENAL INSUFFICIENCY (GFR <60), >1200 PG/ML YIELDS A DIAGNOSTIC SENSITIVITY AND SPECIFICITY OF 89% AND 72% FOR ACUTE CHF. BLOOD VENOUS BLOOD SPECIMEN / Unknown 06/29/2025 4:46 AM DEPUTY FIRE CHIEF Veronica Velasquez DO LABORATORY Final Result Performing Organization Address [facility]/ZIP Co de Phone Number [facility] [address] [place] [phone], * (ABNORMAL) HEMOGLOBIN, GLYCOSYLATED (08/12/2022 8:40 AM DEPUTY FIRE CHIEF) HGB A1C 7.2(H) <5.7 % 08/12/2022 1:45 PM DEPUTY FIRE CHIEF [facility] Comment: ADA GUIDELINES 2010 5.7 TO 6.4% INCREASED RISK OF DIABETES > OR = 6.5% CONSISTENT WITH DIABETES ESTIMATED AVG GLUCOSE 160 mg/dL 08/12/2022 1:45 PM DEPUTY FIRE CHIEF [facility] 08/12/2022 8:40 AM DEPUTY FIRE CHIEF Edin Markham APRN LABORATORY Final Result [facility] [address] [place] [phone], * (ABNORMAL) LIPID PANEL (04/02/2019) CHOLESTEROL 173 100 - 199 HDL 55 >=39 TRIGLYCERIDES 84 0 - 149 LDL (CALCULATED) 101(A) 0 - 99 VLDL CALCULATION 17 5 - 40 04/02/2019 us Doc [facility] LABORATORY Final Result from Last 3 Months or Most Recently Relevant to Health Maintenance Insurance MEDICARE [facility] Advance Directives * Full Code (Latest Code Status on File) Date Activated Date Inactivated Comments 06/29/2025 8:32 AM 06/30/2025 4:45 PM * Full Code Date Activated Date Inactivated Comments 08/12/2022 3:43 PM 08/14/2022 6:12 PM Care Teams Senior Administrative Assistant Relationship Specialty Start Date End Date Ian Jaeger MD [address] [address] PCP - General INTERNAL MEDICINE 08/12/22 Ebenezer Magallanes MD [address] [place] [phone] [place] Oil Heater Installer CARDIOVASCULAR DISEASE 05/19/19
--- OUTSIDE RECORDS SUMMARY | 2025-07-02 11:09 | XMS_ITS | Encounter Summary ---
Author Organization [facility] Healthcare Address [address] [place] [address] Care Team Providers Care Stranding Machine Operator Helper Name Role Phone Ian Jaeger MD Primary Care Provide r Encounter Details Date Type Department Care Team (Late st Contact Info) Description 07/01/2025 Results Follow-Up [facility] Medical Group Cardiology [address] [facility] [address] [place] [address] Leeanna Jean Baptiste NP [address] [place] [address] 48 HR Holter Monitor Social History Tobacco Use Types Packs/Day Years Used Date Smoking Tobacco: Every Day Cigarettes Smokeless Tobacco: Former Alcohol Use Standard Drinks/Week Comments No 0 (1 standard drink = 0.6 oz pur e alcohol) Sex and Gender Information Value Date Recorded Sex Assigned at Not on file Legal Sex Male 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
--- NOTE | 2025-07-02 11:16 | CY_PTH ---
PATIENT: Phill Monae LOC: ANAB #:[id number] AGE/SX: 80/M ROOM: RE07/02/[address]: Rui Ellsworth MD : 1945 BED: DIS: 07/02/2025 SPEC #: [id number] RECD: 07/02/25 12:40 STATUS: SOUT REQ #: [id number] DEBORAH: 07/02/25 11:[address]: Rui Ellsworth DEPT: [facility] Cytology RECD BY: Clary Espinosa ENTERED: 07/02/25 12:41 SP TYPE: Cytology OTHR DR: Ian Jaeger MD Tissues: A - Peripheral Blood Procedures: Flow Cytometry
[2025-07-02 11:22] LABS: Hematocrit 40.8 % (42.0-52.0); Hemoglobin 12.5 g/dL (14.0-18.0); Immature Granulocyte Percent A 1.0 % (0-0.5); Lymphocytes Absolute Auto 0.89 K/mm3 (0.9-3.2); Mean Corpuscular HGB Conc 30.6 g/dl (32-36); Mean Corpuscular Hemoglobin 25.7 pg (26-34); Mean Corpuscular Volume 84.0 fl (80-100); Nucleated Red Blood Cells Absolute Auto 0.000 K/mm3 (0.0-0.012); Nucleated Red Blood Cells Perc 0.0 % (0.0-0.2); Platelet Count Result 305 k/mm3 (150-375); Red Blood Count 4.86 M/mm3 (4.6-6.20); White Blood Count 2.1 K/mm3 (4.5-10.0)
[2025-07-02 11:25] LABS: Schistocytes None Seen
[2025-07-02 11:29] LABS: Anisocytosis 2+; Hypochromasia 1+
[2025-07-02 12:55] LABS: Anion Gap 12 mmol/L (4-12); Blood Urea Nitrogen 25 mg/dL (9-20); Calcium 9.3 mg/dL (8.4-10.2); Carbon Dioxide 24 mmol/L (22-30); Chloride 100 mmol/L (98-107); Estimated Glomerular Filt Rate > 60; Glucose 108 mg/dL (65-110); Sodium 136 mmol/L (137-145)
[2025-07-02 12:56] LABS: Iron 34 ug/dL (49-181)
[2025-07-02 13:06] LABS: Potassium 4.0 mmol/L (3.4-5.0)
[2025-07-02 13:07] LABS: Percent Iron Saturation 12 % (20-50)
[2025-07-02 13:38] LABS: Ferritin 46.00 ng/mL (11.1-264)
[2025-07-02 14:07] LABS: Vitamin B12 904.0 pg/mL (239-931)
== END 2025-07-02 11:05 | disposition home or self-care (01) ==
LOC: ANHLAB 11:05
PROVIDERS: PCP Emergency Medicine; Visit Provider Internal Medicine Hematology & Oncology
DX: D64.9 Anemia, unspecified (principal)
CPT/HCPCS: 36415; 80048; 82607; 82728; 82746; 83540; 83550; 85025; 88184

== ENCOUNTER 2025-07-14 10:15 | Inpatient (IN) | payer MEDICARE, OTHER, SELFPAY ==
--- OUTSIDE RECORDS SUMMARY | 2025-07-13 16:30 | XMS_ITS | Encounter Summary ---
Author Organization [facility] Address [address] [place] [address] Care Team Providers Care Car Pincher Name Role Phone Ian Jaeger MD Primary Care Provider + [phone] Encounter Details Date Type Department Care Team (Late st Contact Info) Description 07/13/2025 4:30 PM WELDING FOREMAN Telephone Check Up [facility] Oncology and Hematology - Jas [address] [facility] [address] [place] [address] Rui Ellsworth MD [address] [facility] [address] [place] [address] Chronic anemia (Primary Dx) Social History Tobacco Use Types Packs/Day Years Used Date Smoking Tobacco: Every Day Cigarettes 0.5 65.3 Started: 03/25/1960 Smokeless Tobacco: Former Alcohol Use Standard Drinks/Week Comments Yes 0 (1 standard drink = 0.6 oz pur e alcohol) Not very often Sex and Gender Information Value Date Recorded Sex Assigned at Not on file Legal Sex Male 10:39 AM CDT Gender Identity Not on file Sexual Orientation Not on file documented as of this encounter Progress Notes * Rui Ellsworth MD - 07/13/2025 5:12 PM CST HEMATOLOGY / ONCOLOGY PROGRESS NOTE Patient Identification: Name: Phill Monae Age: 80 y.o. Sex: male : 1945 DIAGNOSIS Chronic anemia Leukopenia CURRENT TREATMENT Iron 65 mg twice a day Vitamin B12 500 mcg once a day TREATMENT HISTORY SUBJECTIVE This is a phone visit with patient. He denies any excessive tiredness and fatigue. No bleeding. No other new complaints. Review of system Constitutional: Patient did not mention fevers, sweats, denies any excessive tiredness and fatigue HEENT: Patient did not mention sinus congestion, hearing or vision problems Respiratory: Patient did not mention cough, dyspnea, wheeze Cardiovascular: Patient did not mention chest pain, exertional chest pressure/discomfort, nausea, syncope, shortness of breath GI: Patient did not mention constipation, diarrhea, dsyphagia, reflux symptoms, vomiting, melena : Patient did not mention dysuria, frequency, incontinence, urgency Integumentary system: no lymphadenopathy, sweats, flushing Musculoskeletal: Patient not mention: myalgia, arthralgia Neurological: Patient did not mention blurry or disturbed vision, numbness/weakness, dizziness Skin: No lumps, bumps or rashes. 12 point review of system was reviewed Objective: Vital signs in last 24 hours: As per nursing note Exam: This is a phone visit [facility] Labs from March 25 showed creatinine 0.7 B12 446 WBC 1.6 hemoglobin 12 MCV 84 platelet 248,000 neutrophils 39% lymphocyte 46% iron 43 saturation 15 ferritin 41 soluble transferrin receptor 26.3 Labs from July 02 showed creatinine 0.7 B12 904 iron 34 saturation 12 ferritin 46 hemoglobin 12.5 WBC 2.1 platelets 305,000 Assessment: Plan: There are no active problems to display for this patient. Normocytic anemia and leukopenia. Flow cytometric analysis showed no evidence of leukemia and leukemia lymphoma. Labs showed improvement in the WBC count and hemoglobin. I have reviewed the iron studies that remain slightly low. I have instructed him to increase oral iron to 3 times a day and continue vitamin B12 once a day. Follow-up in 4 months. Type 2 diabetes. Patient is on metformin. Coronary artery disease. Patient is on Brilinta. Hypertension. Stable. Esophagitis. He is on Protonix. Follow-up in 4 months 07/13/2025 Rui Ellsworth MD Patient's identity confirmed yes Patient gave verbal consent to have these services billed to their insurance and expressed understanding that co-insurance and deductible may apply: yes Patient was located At home This encounter was completed via two-way synchronous audio only communication. Video technology available to provider, but patient not capable of, or doesn't consent to, use of video. Time spent in discussion with patient: 15 minutes. ING FOREMAN documented in this encounter Plan of Treatment Scheduled Orders Name Type Priority Associated Diagnoses Orde r Schedule CBC WITH DIFFERENTIAL Lab Stat Chronic anemia Expected: 11/02/2025, Expires: 07/13/2026 BASIC METABOLIC PANEL Lab Stat Chronic anemia Expected: 11/02/2025, Expires: 07/13/2026 FERRITIN Lab Routine Chronic anemia Expected: 11/02/2025, Expires: 07/13/2026 IRON, TIBC, AND PERCENT SATURATION Lab Routine Chronic anemia Expected: 11/02/2025, Expires: 07/13/2026 VITAMIN B12 AND FOLATE Lab Routine Chronic anemia Expected: 11/02/2025, Expires: 07/13/2026 documented as of this encounter Visit Diagnoses Diagnosis Chronic anemia- Primary Anemia, unspecified documented in this encounter Care Teams Car Pincher Relationship Specialty Start Date End Date Ian Jaeger MD [address] [phone] PCP - General Internal Medicine 03/25/25 documented as of this encounter
--- OUTSIDE RECORDS SUMMARY | 2025-07-13 16:30 | XMS_ITS | Encounter Summary ---
Author Organization [facility] [employer] [facility] Address [address] [place] [address] Care Team Providers Care Creative Coordinator Name Role Phone Ian Jaeger MD Primary Care Provider + [phone] Encounter Details Date Type Department Care Team (Late st Contact Info) Description 07/13/2025 4:30 PM LEADITE MAN Telephone Check Up [facility] Oncology and Hematology - Jas [address] [facility] [address] [place] [address] Rui Ellsworth MD [address] [facility] [address] [place] [address] Chronic anemia (Primary Dx) Social [...] spent in discussion with patient: 15 minutes. ITE MAN documented in this encounter Plan of Treatment [...] unspecified documented in this encounter Care Teams Creative Coordinator Relationship Specialty Start Date End Date Ian Jaeger MD [address] [phone] PCP - General Internal Medicine 03/25/25 documented as of this encounter
[2025-07-14] VITALS (12 sets, daily range): BP systolic 88–125; BP diastolic 51–95; PULSE 78–104; RESP 16–22; TEMP 36.3–36.7; O2SAT 95–100
--- NOTE | ~2025-07-14 | NM_ITS ---
EXAM/PROCEDURE: NM GI bleeding HISTORY: GI bleed COMPARISON: None available. TECHNIQUE: Standard technique for RBC tagged scintigraphy for possible GI bleed. Dose: 25.7 mCi technetium 99m tagged RBCs. FINDINGS: No evidence of GI bleed seen. IMPRESSION: No evidence of GI bleed. Reviewed, dictated and finalized at location A. E QUALITY IMPRESSION: No evidence of GI bleed.
--- NOTE | ~2025-07-14 | CT_ITS ---
EXAMINATION: CT diagnostic chest wo con DATE: 07/14/2025 17:43 INDICATION: Right lung opacities. TECHNIQUE: Computed tomography (CT) of the chest was performed without intravenous contrast. The dose-length product was 271.28 mGy-cm. Automated exposure control and iterative reconstruction technique were employed. COMPARISON: CT dated 08/27/2016 FINDINGS: There is a new right upper lobe mass abutting the pleural surface measuring 2.4 x 2 cm. This mass has enveloped calcifications seen on prior CT. No endobronchial lesions. There is dependent atelectasis. Calcified granuloma in the right lower lobe with adjacent rounded atelectasis. There is diffuse thickening of the esophagus, with air-fluid level and debris in the upper esophagus, suspicious for esophagitis with reflux. There is a hiatal hernia. There are calcified mediastinal and right hilar lymph nodes. Small pericardial effusion. No significant pleural effusion. No endobronchial lesions. No pneumothorax. Moderate thoracic spondylosis. IMPRESSION: 1. New 2.4 x 2.2 cm pleural-based right upper lobe mass, suspicious for bronchogenic carcinoma. 2: Hiatal hernia with fluid and debris in the esophagus which is mildly thickened, suspicious for esophagitis secondary to reflux. 3: Small pericardial effusion. Reviewed, dictated and finalized at location I. FING RN IMPRESSION: 1. New 2.4 x 2.2 cm pleural-based right upper lobe mass, suspicious for broncho genic carcinoma. 2: Hiatal hernia with fluid and debris in the esophagus which is mildly thicken ed, suspicious for esophagitis secondary to reflux. 3: Small pericardial effusion.
--- NOTE | ~2025-07-14 | CT_ITS ---
CT abdomen pelvis wo/w con Clinical History: GI Bleeding . Comparison: CTA abdomen pelvis 07/14/2025 Technique: Axial images lung bases to symphysis pubis IV contrast information not listed in PACS Coronal, sagittal reformats CT images acquired with automatic exposure control for dose reduction DLP: 1313 mGy-cm Findings: Lung bases: Small pleural effusions. Visualized heart and pericardium: Unremarkable. Liver: Unremarkable. Gallbladder: Stones. Spleen: Unremarkable. Pancreas: Unremarkable. Adrenal glands: Small left adenoma. Kidneys: Right kidney- No hydronephrosis. No renal stones. Left kidney- No hydronephrosis. 5 mm stone. Distal esophagus/stomach: Small hiatal hernia. Gastric wall thickening. Small bowel loops: Normal caliber and wall thickness. Colon: Diverticula. Normal caliber and wall thickness. Appendix not seen. No intraluminal extravasation of IV contrast. Nodes: No enlarged nodes. Unchanged small retroperitoneal and inguinal nodes. Peritoneum: No ascites. No free air. Urinary bladder: Small urachal remnant along anterior bladder wall. Prostate: Enlarged. Bones: No acute bony abnormality. Chronic right femoral head AVN. Soft tissues: Small umbilical hernia with fat. Aorta: No aneurysm or dissection. Atherosclerotic disease. IVC: Unremarkable. Main portal vein/SMV/splenic vein: Patent. IMPRESSION: 1. No findings of active GI bleed. 2. Mild gastritis not excluded. 3. Additional findings as above. Reviewed, dictated and finalized at location R. ER SHREDDER
--- NOTE | ~2025-07-14 | XR_ITS ---
Examination: XR chest 1V portable Clinical History: EUGENIE Comparison: X-rays 11/18/2024 Technique: Portable AP Findings: Heart size normal. Ill-defined opacity right midlung. No acute bony abnormality. IMPRESSION: 1. Recommend CT chest to better evaluate right midlung opacity. Reviewed, dictated and finalized at location R. FITS ADVISOR
--- NOTE | ~2025-07-14 | US_ITS ---
EXAMINATION: US venous doppler UE RT, 07/23/2025 13:06 SIGNAL TESTER HISTORY: swelling Comparison: None Technique: Multiple torres scale and color Doppler sonographic images were obtained of the internal jugular, subclavian, axillary, brachial, basilar, radial and ulnar veins. Findings: Venous System: There is thrombus with diminished flow in the patent brachial veins, the remaining visualized deep venous system is unremarkable. There is thrombus noted within the cephalic vein. IMPRESSION: DVT detailed above with superficial thrombophlebitis Reviewed, dictated and finalized at location P. AL TESTER
--- NOTE | ~2025-07-14 | CT_ITS ---
CTA abdomen pelvis Clinical History: lower GI bleed Technique: Helical images lung bases to pelvic outlet IV contrast information not listed in PACS Coronal, sagittal reformats. Multiplanar MIPS CT images acquired with automatic exposure control for dose reduction DLP: 415 mGy-cm Comparison: CT abdomen and pelvis 12/26/2024 Findings: CTA Findings: Abdominal aorta: No aneurysm or dissection. Atherosclerotic disease. Common iliac arteries: Patent. Mild ectasia and noncalcified mural thrombus External iliac arteries: Patent. Hypogastric arteries: Patent. CFAs: Patent. Proximal visualized SFAs and profundas: Patent. Celiac: Patent. SMA: Patent. SALVADOR: Patent. Renal arteries: Left side mild stenosis. Non-CTA findings: Lung bases: Clear. Visualized heart and pericardium: Unremarkable. Liver: Unremarkable. Gallbladder: Unremarkable. Spleen: Unremarkable. Pancreas: Unremarkable. Adrenal glands: Small left adenoma. Kidneys: Right kidney- No renal stones. No hydronephrosis. Left kidney- 5 mm stone. No hydronephrosis. Distal esophagus/stomach: Small hiatal hernia. Small bowel loops: Normal caliber and wall thickness. Colon: Diverticula. Normal caliber and wall thickness. Appendix not seen. No intraluminal contrast extravasation. Nodes: No enlarged nodes. Peritoneum: No ascites. No free air. Urinary bladder: Small urachal remnant along bladder wall anteriorly. Prostate: Prominent. Bones: No acute bony abnormality. Right femoral head AVN, chronic. Soft tissues: Small umbilical hernia with fat. IMPRESSION: 1. No evidence of active GI bleed or other acute abnormality. Reviewed, dictated and finalized at location R. TCHING MACH[employer]END[employer]AME
--- OUTSIDE RECORDS SUMMARY | 2025-07-14 11:29 | XMS_ITS | Encounter Summary ---
Author Organization [facility] Healthcare Address [address] [place] [address] Care Team Providers Care Information Systems Audit Manager Name Role Phone Ian Jaeger MD Primary Care Provide r Encounter Details Date Type Department Care Team (Late st Contact Info) Description 07/01/2025 Results Follow-Up 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
--- OUTSIDE RECORDS SUMMARY | 2025-07-14 11:29 | XMS_ITS | Encounter Summary ---
Author Organization [facility] Medical Group Address [address] [facility] [address] [place] [address] Care Team Providers Care Child Welfare Assistant Name Role Phone No, Physician Primary Care Provider [phone] Rinku Glover MD Primary Care Provider [phone] Ian Jaeger MD Primary Care Provide r Encounter Details Date Type Department Care Team (Late st Contact Info) Description 08/23/2016 Orders Only [facility] ProviderAyala MD [address] [place] [address] Social History Tobacco Use Types Packs/Day Years Used Date Smoking Tobacco: Former Alcohol Use Standard Drinks/Week Comments No 0 (1 standard drink = 0.6 oz pur e alcohol) Sex and Gender Information Value Date Recorded Sex Assigned at Not on file Legal Sex Male 4:13 AM ONCOLOGIST Gender Identity Not on file Sexual Orientation [...] on filedocumented in this encounter Care Teams Child Welfare Assistant Relationship Specialty Start Date End Date No, Physician PCP - General 04/03/17 06/09/17 Rinku Glover MD [address] [place] [address] PCP - General Internal Medicine 06/10/17 08/16/22 Ian Jaeger MD [address] [place] [address] PCP - General Emergency Medicine 08/17/22 documented as of this encounter
--- OUTSIDE RECORDS SUMMARY | 2025-07-14 11:29 | XMS_ITS | Encounter Summary ---
Author Organization [employer] Address [address] [place] [address] Care Team Providers Care Shipping And Receiving Material Handler Name Role Phone Ian Jaeger MD Primary Care Provider [phone] Encounter Details Date Type Department Care Team (Late st Contact Info) Description 07/13/2025 External Device Data [facility] ABSTRACTION Provider, Abstract NO ADDRESS ON FILE Social History Tobacco Use Types Packs/Day Years [...] on filedocumented in this encounter Care Teams Shipping And Receiving Material Handler Relationship Specialty Start Date End Date Ian Jaeger MD [address] [place] [phone] PCP - General Internal Medicine 03/25/25 documented as of this encounter
--- OUTSIDE RECORDS SUMMARY | 2025-07-14 11:29 | XMS_ITS | Clinical Summary ---
Author Organization [facility] Address [address] [address] Care Team Providers Care Laboratory Mechanical Technician Name Role Phone Ian Jaeger MD Primary Care Provider + [phone] Allergies Active Allergy Reactions Criticality Noted Date [...] Encounters Date Type Department Care Team Description 07/13/2025 4:30 PM ELECTRICAL ENGINEERING TECHNOLOGIST Telephone Check Up [facility] Oncology and Hematology - [place] [address] [place] [address] Rui Ellsworth MD Chronic anemia (Primary Dx) 07/13/2025 External Device Data STL ABSTRACTION Provider, Abstract 07/05/2025 Orders Only [facility] Oncology and Hematology [address] [place] [address] Rui Ellsworth MD 06/02/2025 External Device Data STL ABSTRACTION Provider, Abstract 06/01/2025 External Device Data STL ABSTRACTION Provider, Abstract 04/27/2025 External Device Data STL ABSTRACTION Provider, Abstract 04/27/2025 External Device Data STL ABSTRACTION Provider, Abstract from Last 3 Months Family History Medical [...] 03/25/2025 10:13 AM CDT Plan of Treatment Health Maintenance Due Date Last Done Comments DIABETES ANNUAL FOOT EXAM 1961 DIABETES MICROALBUMIN ANNUAL SCREEN 1961 LDL CHOLESTEROL ANNUAL 1961 DTAP/TDAP/TD VACCINES (1 - Tdap) 1962 PNEUMOCOCCAL VACCINE 50+ YEA RS (1 of 2 - PCV) 1962 ZOSTER VACCINE (1 of 2) 1993 RSV VACCINE (60+ or ) (1 - 1-dose 75+ series) 2018 DIABETES HBA1C Q 6 MONTHS 12/21/20242023, 01/07/2024, 01/09/2023, Additional history exists DIABETES ANNUAL RETINAL EXAM 01/11/202609/2024, 01/13/2024, 05/14/2022, Additional history exists INFLUENZA VACCINE Completed 06/30/2025 Procedures Procedure Name Priority Date/Time Associated Diagnosis Comments BASIC METABOLIC PANEL Routine 07/02/2025 12:46 PM ELECTRICAL ENGINEERING TECHNOLOGIST FLOW CYTOMETRY REPORT Routine 07/02/2025 11:39 AM ELECTRICAL ENGINEERING TECHNOLOGIST from Last 3 Months Results * BASIC METABOLIC PANEL (07/02/2025 12:46 PM ELECTRICAL ENGINEERING TECHNOLOGIST) Blood Rui Ellsworth MD CHEMISTRY ORDERABLES Final Resu lt * FLOW CYTOMETRY REPORT (07/02/2025 11:39 AM ELECTRICAL ENGINEERING TECHNOLOGIST) Rui Ellsworth MD PATHOLOGY/CYTOLOGY ORDERABLES F inal Result from Last 3 Months Insurance MEDICARE PART A AND B [employer] CHOICE POS II Care Teams Laboratory Mechanical Technician Relationship Specialty Start Date End Date Ian Jaeger MD [address] [place] [address] PCP - General Internal Medicine 03/25/25
--- OUTSIDE RECORDS SUMMARY | 2025-07-14 11:29 | XMS_ITS | Encounter Summary ---
Author Organization [facility] Healthcare Address [address] [place] [address] Care Team Providers Care Ems Coordinator Name Role Phone Ian Jaeger MD Primary Care Provide r Encounter Details Date Type Department Care Team (Late st Contact Info) Description 12/08/2024 Orders Only [facility] Health Information Management [address] [place] [id number] Scanning, Provider Social History Tobacco Use Types Packs/Day Years Used Date Smoking Tobacco: Every Day Cigarettes Smokeless Tobacco: Former Alcohol Use Standard Drinks/Week Comments No 0 (1 standard drink = 0.6 oz pur e alcohol) Sex and Gender Information Value Date Recorded Sex Assigned at Not on file 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
--- OUTSIDE RECORDS SUMMARY | 2025-07-14 11:29 | XMS_ITS | Clinical Summary ---
Author Organization [facility] [address] Address [address] [place] [address] Care Team Providers Care Cotton Feeder Name Role Phone Ian Jaeger MD Primary [...] METER THREE TIMES A DAY 0 Active alirocumab (Praluent Pen) 75 mg/mL pen injector Inject 75 mg as directed every 14 (fourteen) days 6 mL 3 2 Active furosemide (LASIX) 40 mg tablet TAKE 1 TABLET BY MOUTH TWICE A DAY 180 tablet 2 3 Active loratadine (Claritin) 10 mg tablet Take 1 tablet (10 mg total) by mouth daily Active fluticasone propion-salmete roL (ADVAIR DISKUS) 250-50 mcg/dose diskus inhaler Inhale 1 puff 2 (two) times a day 4 Active potassium chloride ER 20 mEq CR tablet TAKE 1 TABLET BY MOUTH EVERY DAY WITH FOOD 90 tablet 3 4 Active metoprolol XL (TOPROL-XL) 25 mg extended release tablet TAKE 1 TABLET BY MOUTH EVERY DAY 90 tablet 2 5 Active Additional Information Patient taking differently: 12.5 mgoral Daily, Reported on 06/18/2025 oxyCODONE-aceta minophen (PERCOCET) 5-325 mg per tablet Take by mouth every 6 (six) hours as needed 5 Active ferrous sulfate 325 mg (65 mg of elemental iron) tablet Take 1 tablet (325 mg total) by mouth 2 (two) times a day 5 Active Brilinta 60 mg tabletIndicatio ns:Coronary artery disease of [place] artery of [place] heart with stable angina pectoris TAKE 1 TABLET BY MOUTH TWICE A DAY 180 tablet 2 5 Active nitroglycerin (NITROSTAT) 0.4 mg SL tabletIndicatio ns:Coronary artery disease involving [place] coronary artery of [place] heart without angina pectoris Place 1 tablet (0.4 mg total) under the tongue every 5 (five) minutes as needed for chest pain 25 tablet 11 5 Active tamsulosin (FLOMAX) 0.4 mg extended release capsule Take by mouth daily [address] (PROTONIX) 40 mg EC tabletIndicatio ns:Gastroesopha geal reflux disease TAKE 1 TABLET BY MOUTH EVERY DAY 90 tablet 2 5 Active sacubitriL-vals kasie (ENTRESTO) 24-26 mg tablet TAKE 1 TABLET BY MOUTH TWICE A DAY 180 tablet 2 5 Active Jardiance 10 mg tablet TAKE 1 TABLET BY MOUTH EVERY DAY 90 tablet 3 5 Active evolocumab (Repatha Syringe) syringe syringe Inject 1 mL (140 mg total) under the skin every 14 (fourteen) days 6 mL 3 5 Active Active Problems Problem Noted Date Diagnosed Date PVC (premature ventricular contraction) 06/15/20 20 Overview (06/15/2020): Added automatically from request for surgery [id number] Preoperative cardiovascular examination 02/26/20 Bradycardia 02/26/2020 Ventricular bigeminy 02/26/2020 Gastroesophageal reflux disease 03/25/2019 Bone lesion 04/01/2018 Hyperlipidemia associated with type 2 diabetes m ellitus 06/10/2017 Hypertension associated with diabetes 06/10/2017 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 05/29/2016 Overview (11/15/2016): Coronary artery disease involving [place] coronary artery of [place] heart without angina pectoris Chronic systolic heart [...] Date Type Department Care Team Description 07/13/2025 Telephone [facility] Cardiology [address] [place] [address] Jaime Pratt MD 07/01/2025 Results Follow-Up [facility] Cardiology [address] [place] [address] Leeanna Jean Baptiste NP 48 HR Holter Monitor 06/30/2025 Telephone [facility] Cardiology [address] [place] [address] [address] [place] [phone] Jaime Pratt MD 06/24/2025 2:30 PM OTOLARYNGOLOGY SURGEON Ancillary Procedure [facility] Cardiology [address] [place] [address] [place] [phone] PVC (premature ventricular contraction); Accelerated junctional rhythm 06/18/2025 10:00 AM OTOLARYNGOLOGY SURGEON Office Visit [facility] Cardiology [address] [place] [address] [place] [phone] Leeanna Jean Baptiste NP Chronic heart failure with reduced ejection fraction (HFrEF, <= 40%) (HCC) (Primary Dx); PVC (premature ventricular contraction); Accelerated junctional rhythm; Coronary artery disease involving [place] coronary artery of [place] heart without angina pectoris 06/18/2025 Telephone [facility] Cardiology [address] [place] [address] [place] [phone] Leeanna Jean Baptiste NP from Last 3 [...] on file Legal Sex Male 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 Gender Identity Not on file Sexual Orientation Not on file Last Filed Vital Signs Vital Sign Reading Time Taken Comments Blood Pressure 90/56 06/18/2025 9:55 AM OTOLARYNGOLOGY SURGEON Pulse 88 06/18/2025 9:55 AM OTOLARYNGOLOGY SURGEON Temperature 36.5 C (97.7 F) 11/15/2020 11:14 AM CDT Respiratory Rate 19 07/25/2020 5:50 PM OTOLARYNGOLOGY SURGEON Oxygen Saturation 96% 06/18/2025 9:55 AM OTOLARYNGOLOGY SURGEON Inhaled Oxygen Concentration - - Weight 68.5 kg (151 lb) 06/18/2025 9:55 AM OTOLARYNGOLOGY SURGEON Height 177.8 cm (5' 10) 06/18/2025 9:55 AM OTOLARYNGOLOGY SURGEON Body Mass Index 21.67 06/18/2025 9:55 AM OTOLARYNGOLOGY SURGEON Plan of Treatment Health Maintenance Due Date [...] 07/12/2024 07/12/2023, 03/13, 04/12/2021, Additional history exists Pneumococcal vaccine 65+ Completed 019, 05/14/2016, 06/07/2015 Abdominal Aortic Aneurysm (A AA) Screen Completed 08/12/2022 Influenza Vaccine Completed 06/30/2025, , 06/10/2020, Additional history exists Medical Devices Implanted Type Area Creel Clerk Device Identifier Shelf Expiration Date Model / Serial / Lot [email or web address] [id number] System 6-12fr Mvp Venous Closure Vascade - [id number] Implanted:Qty: 1 on 07/25/2020 by Florentin Lopez MD at [facility] [employer] 05/03/2022 800-612C-1 0U / / [id number] [employer] [id number] System 6-12fr Mvp Venous Closure Vascade - [id number] Implanted:Qty: 1 on 07/25/2020 by Florentin Lopez MD at [facility] [employer] 05/10/2022 800-612C-1 0U / / [id number] [employer] [id number] System 6-12fr Mvp Venous Closure Vascade - [id number] Implanted:Qty: 1 on 07/25/2020 by Florentin Lopez MD at [facility] [employer] 05/10/2022 800-612C-1 0U / / [id number] [employer] [id number] System 6-12fr Mvp Venous Closure Vascade - [id number] Implanted:Qty: 1 on 07/25/2020 by Florentin Lopez MD at [facility] [employer] 05/03/2022 800-612C-1 0U / / [id number] Stent Chest Description:proximal LAD p er daughter in law Procedures Procedure Name Priority Date/Time Associated Diagnosis Comments HOLTER MONITOR 48 HR Routine 06/24/2025 1:15 PM OTOLARYNGOLOGY SURGEON PVC (premature ventricular contraction) Accelerated junctional rhythm ELECTROCARDIOGRAM REPORT Routine 025 1:31 PM OTOLARYNGOLOGY SURGEON PVC (premature ventricular contraction) Accelerated junctional rhythm Coronary artery disease involving [place] coronary artery of [place] heart without angina pectoris LIPID PANEL Routine 07/12/2023 Coronary artery disease of [place] artery of [place] heart with stable angina pectoris from Last 3 Months or Most Recently Relevant to Health Maintenance Results * 48 HR Holter Monitor (06/24/2025 1:15 PM OTOLARYNGOLOGY SURGEON) Anatomical Region Laterality Modality Electrocardiogra phy Narrative 06/30/2025 1:46 PM OTOLARYNGOLOGY SURGEON AMBULATORY INTERNET AND E BUSINESS PROJECT MANAGER REPORT Patient Name: Yaneli Frank Date of [...] was used to complete this document, therefore, afloat cryptologic manager variances may occur. Ernesto Patrick MD, [facility] 06/30/25 Procedure Note Ernesto Patrick MD - 06/30/2025 AMBULATORY INTERNET AND E BUSINESS PROJECT MANAGER REPORT Patient Name: Yaneli Frank Date of [...] software was used to complete this document, therefore,afloat cryptologic manager variances may occur. Ernesto Patrick MD, [facility] 06/30/25 Leeanna Jean Baptiste NP CV CARDIAC SERVICES PROCE DURES Final Result * Electrocardiogram Report (06/18/2025 1:31 PM OTOLARYNGOLOGY SURGEON) Leeanna Jean Baptiste NP ECG ORDERABLES Final [...] to Health Maintenance Insurance MEDICARE MEDICARE T [facility] MEDICARE MEDICARE AETNA Care Teams Cotton Feeder Relationship Specialty Start Date End Date Ian Jaeger MD [address] [place], [place] [id number] PCP - General Emergency Medicine 08/17/22
--- OUTSIDE RECORDS SUMMARY | 2025-07-14 11:29 | XMS_ITS | Encounter Summary ---
Author Organization [facility] Healthcare Address [address] [place] [address] Care Team Providers Care Head Shipper Name Role Phone Ian Jaeger MD Primary Care Provide r Encounter Details Date Type Department Care Team (Late st Contact Info) Description 07/13/2025 Telephone [facility] Cardiology [address] [place] [address] Jaime Pratt MD [address] [facility] [address] [place] [address] Social History Tobacco Use Types Packs/Day Years Used Date Smoking Tobacco: Every Day Cigarettes Smokeless Tobacco: Former Alcohol Use Standard Drinks/Week Comments No 0 (1 standard drink = 0.6 oz pur e alcohol) Sex and Gender Information Value Date Recorded Sex Assigned at Not on file 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 Appt rescheduledfor 08/[address] MACHINE OPERATOR * Telephone Encounter - Mercedes Dalton - 07/13/2025 8:53 AM CST Adali is requesting a call back to discuss patients hospital visit. Patient had to reschedule hisappt due to the weather and was rescheduled for August. Patient and spouse, would like to discuss if he had a heart attack and those types of concerns. Please advise. Thank you. Contact : [phone] NG MACHINE OPERATOR documented in this encounter Plan of Treatment Not on file documented as of this encounter Visit Diagnoses Not on filedocumented in this encounter Care Teams Head Shipper Relationship Specialty Start Date End Date Ian Jaeger MD [address] [place] [address] PCP - General Emergency Medicine 08/17/22 documented as of this encounter
--- OUTSIDE RECORDS SUMMARY | 2025-07-14 11:29 | XMS_ITS | Encounter Summary ---
Author Organization [facility] Healthcare Address [address] [place] [address] Care Team Providers Care Chief Airport Guide Name Role Phone Rinku Glover MD Primary Care Provider [phone] Ian Jaeger MD Primary Care Provide r Encounter Details Date Type Department Care Team (Late st Contact Info) Description 02/06/2018 Orders Only [facility] Health Information Management [address] [place] [address] Scanning, Provider Social History Tobacco Use Types Packs/Day Years Used Date Smoking Tobacco: Former Cigarettes Q uit: 05/11/2016 Smokeless Tobacco: Never Alcohol Use Standard Drinks/Week Comments No 0 (1 standard drink = 0.6 oz pur e alcohol) Sex and Gender Information Value Date Recorded Sex Assigned at Not on file 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
--- OUTSIDE RECORDS SUMMARY | 2025-07-14 11:29 | XMS_ITS | Clinical Summary ---
Author Organization [facility] Address [address] [place] [address] Care Team Providers Care Angio Technologist Name Role Phone Ebenezer Magallanes MD Unavailable [phone] Ian Jaeger MD Primary Care Provider [phone] Allergies Active Allergy Reactions Criticality Noted Date [...] (08/12/2022): Added automatically from request for surgery [id number] Bradycardia 02/26/2020 Ventricular bigeminy 02/26/2020 Gastroesophageal reflux disease 03/25/2019 Bone lesion 04/01/2018 Chronic systolic heart failure 05/29/2016 Overview (08/12/2022): Chronic systolic (congestive) heart failure Coronary artery disease of n ative artery of [place] heart with stable angina pectoris 05/29/2016 Overview (08/12/2022): Coronary artery disease involving [place] coronary artery of [place] heart without angina pectoris Obstructive sleep apnea syndrome 05/29/2016 Overview (08/12/2022): Obstructive sleep apnea Cardiomyopathy 04/26/2016 Overview (08/12/2022): Cardiomyopathy Dyspnea on exertion 04/26/2016 Overview (08/12/2022): Dyspnea on effort [id number] 03/23/2016 Hypertension associated with diabetes 05/18/2013 Overview (08/12/2022): Essential hypertension Diabetes mellitus 05/18/2013 Hyperlipidemia 05/18/2013 Overview (08/12/2022): Hyperlipidemia LDL goal <70 Restless legs syndrome 05/18/2013 Umbilical hernia 05/18/2013 (aortic stenosis) S/P drug eluting coronary stent placement Dyslipidemia Resolved Problems Problem Noted Date Diagnosed Date Resolved Date Preoperative cardiovascular examination 02/26/2020 08/13/2022 Encounters Date Type Department Care Team Description 07/02/2025 Hospital Follow-up Call [facility] [place] [address] Lea Santillan LPN Follow Up Call ([place] 06/29-06/30/25) 06/29/2025 4:43 AM EQUIPMENT INSTALLATION PROFESSIONAL - 06/30/2025 2:39 PM EQUIPMENT INSTALLATION PROFESSIONAL Hospital Encounter [facility] [place] [address] Shannen Parekh MD Dale, Maurice D, Marcos Delgado MD Chest Pain Discharge Disposition: Home or [...] place to sleep or slept in a mcc (including now)? No 08/12/2022 Sex and Gender Information Value Date Recorded Sex Assigned at Male 06/29/2025 2:52 PM EQUIPMENT INSTALLATION PROFESSIONAL Legal Sex Male 8:36 PM CDT Gender Identity Male 06/29/2025 2:52 PM EQUIPMENT INSTALLATION PROFESSIONAL Sexual Orientation Straight 06/29/2025 2: 52 PM EQUIPMENT INSTALLATION PROFESSIONAL Last Filed Vital Signs Vital Sign Reading Time Taken Comments Blood Pressure 104/60 06/30/2025 11:22 AM EQUIPMENT INSTALLATION PROFESSIONAL Pulse 81 06/30/2025 11:22 AM EQUIPMENT INSTALLATION PROFESSIONAL Temperature 37.3 C (99.1 F) 06/30/2025 11:22 AM EQUIPMENT INSTALLATION PROFESSIONAL Respiratory Rate 21 06/30/2025 11:22 AM EQUIPMENT INSTALLATION PROFESSIONAL Oxygen Saturation 99% 06/30/2025 11:22 AM EQUIPMENT INSTALLATION PROFESSIONAL Inhaled Oxygen Concentration - - Weight 69.9 kg (154 lb 1.6 oz) 06/30/2025 3:37 A M EQUIPMENT INSTALLATION PROFESSIONAL Height 177.8 cm (5' 10) 06/29/2025 4:51 AM EQUIPMENT INSTALLATION PROFESSIONAL Body Mass Index 22.11 06/29/2025 4:51 AM EQUIPMENT INSTALLATION PROFESSIONAL Plan of Treatment Health Maintenance Due Date [...] Macario RN Medical Devices Implanted Type Area Salesperson Books Device Identifier Shelf Expiration Date Model / Serial / Lot Clip Resolution 2.8mm 360 235cm 11mm Open - [id number] Implanted:Qty : 1 on 08/13/2022 by Landon Nickerson MD at [facility] Clip Implant N/A: Abdomen Osmosis [id number] 02/21/2025 [id number] / / [id number] Description:JE junction Procedures Procedure Name Priority Date/Time Associated Diagnosis Comments POCT GLUCOSE - DOCKED DEVICE Routine 06/30/2025 10:53 AM EQUIPMENT INSTALLATION PROFESSIONAL POCT GLUCOSE - DOCKED DEVICE Routine 06/30/2025 6:02 AM EQUIPMENT INSTALLATION PROFESSIONAL MAGNESIUM Routine 06/30/2025 5:39 AM EQUIPMENT INSTALLATION PROFESSIONAL BASIC METABOLIC PANEL Routine 06/30/2025 5:39 AM EQUIPMENT INSTALLATION PROFESSIONAL HC CBC AUTO W/AUTO DIFF Routine 06/30/20 5:39 AM EQUIPMENT INSTALLATION PROFESSIONAL POCT GLUCOSE - DOCKED DEVICE Routine 06/29/2025 7:12 PM EQUIPMENT INSTALLATION PROFESSIONAL USE ECHOCARDIOGRAM W CON Today 06/29/2025 4:07 PM EQUIPMENT INSTALLATION PROFESSIONAL POCT GLUCOSE - DOCKED DEVICE Routine 06/29/2025 2:39 PM EQUIPMENT INSTALLATION PROFESSIONAL RESPIRATORY PCR PNL LIMITED STAT 06/29/2025 11:18 AM EQUIPMENT INSTALLATION PROFESSIONAL CTA CHEST PE PROTOCOL STAT 06/29/2025 6:36 AM EQUIPMENT INSTALLATION PROFESSIONAL ECG 12-LEAD STAT 06/29/2025 6:21 AM EQUIPMENT INSTALLATION PROFESSIONAL TROPONIN, QUANT STAT 06/29/2025 6:18 AM EQUIPMENT INSTALLATION PROFESSIONAL XR CHEST PORTABLE STAT 06/29/2025 4:5 3 AM EQUIPMENT INSTALLATION PROFESSIONAL PRO-BRAIN NATRIURETIC PEPTIDE Routine 06/29/2025 4:46 AM EQUIPMENT INSTALLATION PROFESSIONAL TROPONIN, QUANT STAT 06/29/2025 4:46 AM EQUIPMENT INSTALLATION PROFESSIONAL COMPREHENSIVE METABOLIC PANEL STAT 06/29/2025 4:46 AM EQUIPMENT INSTALLATION PROFESSIONAL HC CBC AUTO W/AUTO DIFF STAT 06/29/20 4:46 AM EQUIPMENT INSTALLATION PROFESSIONAL ECG 12-LEAD Routine 06/29/2025 4:37 AM EQUIPMENT INSTALLATION PROFESSIONAL HEMOGLOBIN, GLYCOSYLATED Routine 08/12/2022 8:40 AM EQUIPMENT INSTALLATION PROFESSIONAL LIPID PANEL Routine 04/02/2019 from Last 3 Months or Most Recently Relevant to Health Maintenance Results * (ABNORMAL) POCT glucose (06/30/2025 10:53 AM EQUIPMENT INSTALLATION PROFESSIONAL) Only the most recent of4 resultswithin the time period is included. GLUCOSE POC 125(H) 70 - 99 mg/dL 06/30/2025 11:08 AM EQUIPMENT INSTALLATION PROFESSIONAL [facility] 06/30/2025 10:5 3 AM EQUIPMENT INSTALLATION PROFESSIONAL Marcos Mahajan MD POCT ORDERABLES - ZOHRA CE Final Result [facility] [address] [place] [address], [place] [phone] * MAGNESIUM (06/30/2025 5:39 AM EQUIPMENT INSTALLATION PROFESSIONAL) Pathologist [facility] MAGNESIUM 2.3 1.8 - 2.4 MG/DL 06/30/2025 6:39 AM EQUIPMENT INSTALLATION PROFESSIONAL [facility] BLOOD VENOUS BLOOD SPECIMEN / Unknown 06/30/2025 5:39 AM EQUIPMENT INSTALLATION PROFESSIONAL Lisseth Jimenez NP LABORATORY Final Result Performing Organization Address [facility]/ZIP Co de Phone Number [facility] [address] [place] [address], [place] [phone] * (ABNORMAL) CBC W/DIFF AUTOMATED (06/30/2025 5:39 AM EQUIPMENT INSTALLATION PROFESSIONAL) Only the most recent of2 resultswithin the time period is included. WBC 1.89(LL) 4.5 - 11.0 x10'3/uL 06/30/2025 7:13 AM EQUIPMENT INSTALLATION PROFESSIONAL [facility] Comment: This result has been called to LARISSA SONI by [id number] on 06/30/2025 07:13:02, and has been read back. RBC 4.44(L) 4.70 - 6.10 x10'6/uL 06/30/2025 7:13 AM EQUIPMENT INSTALLATION PROFESSIONAL [facility] HGB 11.4(L) 14.0 - 18.0 G/DL 06/30/2025 7:13 AM EQUIPMENT INSTALLATION PROFESSIONAL [facility] HCT 36.5(L) 43.0 - 54.0 % 06/30/2025 7:13 AM [facility] MCV 82.2 80.0 - 94.0 FL 06/30/2025 7:13 AM [facility] MCH 25.7(L) 27.0 - 31.0 PG 06/30/2025 7:13 AM [facility] MCHC 31.2(L) 32.0 - 36.0 G/DL 06/30/2025 7:13 AM [facility] RDW 17.7(H) 11.5 - 14.5 % 06/30/2025 7:13 AM [facility] PLT 275 130 - 400 x10'3/uL 06/30/2025 7:13 AM [facility] MPV 9.9 9.3 - 12.2 FL 06/30/2025 7:13 AM [facility] DIFFERENTIAL TYPE MANUAL DIFFERENTIAL 06/30/2025 7:13 AM [facility] SEG NEUTROPHILS 33 % 7:13 AM [facility] LYMPHOCYTES 57 % 06/30/2025 7:13 AM [facility] MONOCYTES 8 % 06/30/2025 7:13 AM [facility] EOSINOPHILS 2 % 06/30/2025 7:13 AM [facility] ABS. NEUTROPHILS 0.62(L) 1.80 - 7.70 x10'3/uL 06/30/2025 7:13 AM [facility] ABS. LYMPHOCYTES 1.08 1.00 - 4.80 x10'3/uL 06/30/2025 7:13 AM [facility] ABS. MONOCYTES 0.15(L) 0.30 - 0.82 x10'3/uL 06/30/2025 7:13 AM [facility] ABS. EOSINOPHILS 0.04 0.04 - 0.54 x10'3/uL 06/30/2025 7:13 AM [facility] RBC MORPHOLOGY RBC MORPHOLOGY APPEARS NORMAL. SLIDE REVIEWED. 06/30/2025 7:13 AM [facility] PLT EST. ADEQUATE 06/30/2025 7:13 AM [facility] BLOOD VENOUS BLOOD SPECIMEN / Unknown 06/30/2025 5:39 AM EQUIPMENT INSTALLATION PROFESSIONAL Lisseth Jimenez NP LABORATORY Final Result [facility] [address] [place] [address], [place] [phone] * (ABNORMAL) BASIC METABOLIC PANEL (06/30/2025 5:39 AM EQUIPMENT INSTALLATION PROFESSIONAL) GLUCOSE 135(H) 70 - 99 MG/DL 06/30/2025 6:39 AM [facility] BUN 15 7 - 18 MG/DL 06/30/2025 6:39 AM [facility] CREATININE S/P/B 0.52(L) 0.7 - 1.3 MG/DL 06/30/2025 6:39 AM [facility] SODIUM S/P/B 139 136 - 145 MMOL/L 06/30/2025 6:39 AM [facility] POTASSIUM S/P/B 3.5 3.5 - 5.1 MMOL/L 06/30/2025 6:39 AM [facility] CHLORIDE S/P/B 108 97 - 115 MMOL/L 06/30/2025 6:39 AM [facility] CO2 27.6 21 - 32 MMOL/L 06/30/2025 6:39 AM [facility] CALCIUM S/P/B 9.1 8.5 - 10.1 MG/DL 06/30/2025 6:39 AM EQUIPMENT INSTALLATION PROFESSIONAL [facility] ANION GAP 3.4 2 - 10 MMOL/L 06/30/2025 6:39 AM EQUIPMENT INSTALLATION PROFESSIONAL [facility] BUN CREATININE RATIO 28.8(H) 6 - 26 06/30/2025 6:39 AM EQUIPMENT INSTALLATION PROFESSIONAL [facility] GFR ESTIMATE >90 >90 ML/MIN/1.7 3 M2 06/30/2025 6:39 AM [facility] Comment: NOTE: eGFR is not calculated for patients <18 years of age or gender unknown. This is an estimated GFR calculation using the new CKD EPI creatinine equation without race and so does not require a correction factor for race. This estimated GFR should not be used for calculating drug doses. BLOOD VENOUS BLOOD SPECIMEN / Unknown 06/30/2025 5:39 AM EQUIPMENT INSTALLATION PROFESSIONAL Lisseth Jimenez NP LABORATORY Final Result [facility] [address] [place] [address], * USE ECHOCARDIOGRAM W CON (06/29/2025 4:07 PM EQUIPMENT INSTALLATION PROFESSIONAL) Anatomical Region Laterality Modality NA Echocardiogram 06/29/2025 4:24 PM EQUIPMENT INSTALLATION PROFESSIONAL Narrative 06/30/2025 8:44 AM EQUIPMENT INSTALLATION PROFESSIONAL Echocardiography Report Pat.Name: PHILL MONAE Pat.ID: [id number] .Date: 06/29/2025 Exam Time: 4:24:00 PM Study Type:ECHO WITH CARDIAC DOPPLER COMP Height: 70 in Weight: 180 lb BSA: 2 m2 Age: 904/29/1945,80Y Sex: M BP: 95/52 HR: 75 bpm Sonogrphr: Taylor Louise RDCS Pat. Stat.:Inpatient Room: [facility] Reason for Study:Chest pain Procedures: 2D, M-mode, [...] 43 mm Right Ventricle 23 mm Major Woodson 73 mm MMODE TA Tricuspid Annul 27.4 mm <Electronic Signature> 06/30/2025 08:44 AM Josr James M.D. Procedure Note Josr James MD - 06/30/2025 Echocardiography Report Pat.Name: PHILL OMNAE Pat.ID: [id number] .Date: 06/29/2025 Exam Time: 4:24:00 PM Study Type:ECHO WITH CARDIAC DOPPLER COMP Height: 70 in Weight: 180 lb BSA: 2 m2 Age: 904/29/1945,80Y Sex: M BP: 95/52 HR: 75 bpm Sonogrphr: Taylor Louise RDCS Pat. Stat.:Inpatient Room: [facility] Reason for Study:Chest pain Procedures: 2D, M-mode, [...] 43 mm Right Ventricle 23 mm Major Woodson 73 mm MMODE TA Tricuspid Annul 27.4 mm <Electronic Signature> 06/30/2025 08:44 AM Josr James M.D. Harjeet Yip MD ECHO Final Res ult * RESPIRATORY PCR PNL LIMITED (FLU A/FLU B/RSV/COVID) (06/29/2025 11:18 AM EQUIPMENT INSTALLATION PROFESSIONAL) SPEC DESCRIPTION NASOPHARYNGEAL SWAB 06/29/2025 11:18 AM EQUIPMENT INSTALLATION PROFESSIONAL [facility] CORONAVIRUS SARS COV 2 PCR (RESP) NEGATIVE NEGATIVE 06/29/2025 12:17 PM EQUIPMENT INSTALLATION PROFESSIONAL [facility] INFLUENZA A PCR (RESP) NEGATIVE NEGATIVE 06/29/2025 12:17 PM EQUIPMENT INSTALLATION PROFESSIONAL [facility] INFLUENZA B PCR (RESP) NEGATIVE NEGATIVE 06/29/2025 12:17 PM EQUIPMENT INSTALLATION PROFESSIONAL [facility] RSV PCR (RESP) NEGATIVE NEGATIVE 06/29/2025 12:17 PM EQUIPMENT INSTALLATION PROFESSIONAL [facility] SWAB NASOPHARYNGEAL STRUCTURE / Unknown 06/29/2025 11:18 AM EQUIPMENT INSTALLATION PROFESSIONAL Lisseth Jimenez NP MICROBIOLOGY - GENERAL ORDERA BLES Final Result [facility] [address] [place] [address], * CTA CHEST PE PROTOCOL (06/29/2025 6:36 AM EQUIPMENT INSTALLATION PROFESSIONAL) Anatomical Region Laterality Modality Chest Computed Tomogra phy 06/29/2025 6:45 AM EQUIPMENT INSTALLATION PROFESSIONAL Impressions 06/29/2025 6:56 AM EQUIPMENT INSTALLATION PROFESSIONAL Impression: 1. No pulmonary embolism identified. 2. The heart is mildly enlarged. 3. The ascending thoracic aorta is mildly ectatic measuring 4 cm in diameter. 4. Probable bilateral adrenal adenomas. 5. Nonobstructing left renal stone. Referred By: Interpreted By: Jaime Yeager MD, 06/29/2025 6:45 AM Narrative 06/29/2025 6:56 AM EQUIPMENT INSTALLATION PROFESSIONAL [address] [address] Examination: CT angiography of the chest with [...] Procedure Note Jaime Yeager MD - 06/29/[address] [address] Examination: CT angiography of the chest with [...] * ECG 12 lead (06/29/2025 6:21 AM EQUIPMENT INSTALLATION PROFESSIONAL) Only the most recent of2 resultswithin the time period is included. ECG QT 375 [facility] ECG QTC [facility] 06/29/2025 6:21 AM EQUIPMENT INSTALLATION PROFESSIONAL Narrative [facility] - 06/30/2025 12:41 PM EQUIPMENT INSTALLATION PROFESSIONAL [facility] [address] [facility] Test Date: 2025-06-29 Pat Name: PHILL MONAE Department: 41 Room: A407 Gender: Male Microbiological Lab Technician: [id number] cp : 1945 Requested By: VERONICA VELASQUEZ Order Number: [id number] Reading MD: Joelle Leon Measurements Intervals Woodson Rate: 77 P: 122 AK: 167 QRS: -61 QRSD: 149 T: 84 QT: 375 QTc: 424 Interpretive Statements SINUS RHYTHM WITH OCCASIONAL VENTRICULAR PREMATURE COMPLEXES LEFT AXIS DEVIATION [QRS AXIS < -30] LEFT BUNDLE BRANCH BLOCK [120+ ms QRS DURATION, 80+ ms Q/S IN V1/V2, 85+ ms R IN I/aVL/V5/V6] Compared to ECG 06/29/2025 04:37:19 No significant changes PMENT INSTALLATION PROFESSIONAL Procedure Note Joelle Leon MD - 06/30/2025 [facility] [address] [facility] Test Date: 2025-06-29 Pat Name: PHILL MONAE Department: 41 Room: A407 Gender: Male Microbiological Lab Technician: [id number] cp : 1945 Requested By: VERONICA VELASQUEZ Order Number: [id number] Reading MD: Joelle Leon Measurements Intervals Woodson Rate: 77 P: 122 AK: 167 QRS: -61 QRSD: 149 T: 84 QT: 375 QTc: 424 Interpretive Statements SINUS RHYTHM WITH OCCASIONAL VENTRICULAR PREMATURE COMPLEXES LEFT AXIS DEVIATION [QRS AXIS < -30] LEFT BUNDLE BRANCH BLOCK [120+ ms QRS DURATION, 80+ ms Q/S IN V1/V2, 85+ms R IN I/aVL/V5/V6] Compared to ECG 06/29/2025 04:37:19 No significant changes PMENT INSTALLATION PROFESSIONAL Veronica Velasquez DO ECG ORDERABLES Final Result Performing Organization Address City/[facility]/ZIP Co de Phone Number [facility] * TROPONIN, QUANT (06/29/2025 6:18 AM EQUIPMENT INSTALLATION PROFESSIONAL) Only the most recent of2 resultswithin the time period is included. TROPONIN I HIGH SENSITIVITY 11 <79 ng/L 06/29/2025 6:53 AM EQUIPMENT INSTALLATION PROFESSIONAL [facility] Comment: HIGH DOSES OF BIOTIN, TROPONIN-SPECIFIC AUTOANTIBODIES, AND ANTIBODY THERAPY CONTAINING HAMA MAY INTERFERE WITH THIS TEST RESULT. CORRELATION TO CLINICAL HISTORY AND PRESENTATION RECOMMENDED. BLOOD VENOUS BLOOD SPECIMEN / Unknown 06/29/2025 6:18 AM EQUIPMENT INSTALLATION PROFESSIONAL Veronica Velasquez DO LABORATORY Final Result Performing Organization Address City/[facility]/ZIP Co de Phone Number [facility] [address] [place] [address], [place] [phone] * XR CHEST PORTABLE (06/29/2025 4:53 AM EQUIPMENT INSTALLATION PROFESSIONAL) Anatomical Region Laterality Modality Chest Radiographic Christine ging 06/29/2025 4:54 AM EQUIPMENT INSTALLATION PROFESSIONAL Impressions 06/29/2025 5:01 AM EQUIPMENT INSTALLATION PROFESSIONAL IMPRESSION:===== 1. No convincing acute/active cardiopulmonary radiographic finding 2.. Lung hyperinflation compatible with COPD Referred By: Interpreted By: Kole Neal MD, 06/29/2025 4:54 AM Narrative 06/29/2025 5:01 AM EQUIPMENT INSTALLATION PROFESSIONAL [address] [address] Examination: Chest x-ray 1 view Exam date/time: [...] Procedure Note Kole Neal MD - 06/29/[address] [address] Examination: Chest x-ray 1 view Exam date/time: [...] By: Kole Neal MD, 06/29/2025 4:54 AM Shannen Parekh MD GENERAL IMAGING Final Result * (ABNORMAL) COMPREHENSIVE METABOLIC PANEL (06/29/2025 4:46 AM EQUIPMENT INSTALLATION PROFESSIONAL) Pathologist [facility] GLUCOSE 125(H) 70 - 99 MG/DL 06/29/2025 5:42 AM EQUIPMENT INSTALLATION PROFESSIONAL [facility] BUN 18 7 - 18 MG/DL 06/29/2025 5:42 AM [facility] CREATININE S/P/B 0.60(L) 0.7 - 1.3 MG/DL 06/29/2025 5:42 AM [facility] SODIUM S/P/B 138 136 - 145 MMOL/L 06/29/2025 5:42 AM [facility] POTASSIUM S/P/B 3.6 3.5 - 5.1 MMOL/L 06/29/2025 5:42 AM [facility] CHLORIDE S/P/B 105 97 - 115 MMOL/L 06/29/2025 5:42 AM [facility] CO2 26.8 21 - 32 MMOL/L 06/29/2025 5:42 AM [facility] CALCIUM S/P/B 9.1 8.5 - 10.1 MG/DL 06/29/2025 5:42 AM [facility] BILIRUBIN TOTAL S/P/B 0.4 0.2 - 1.2 MG/DL 06/29/2025 5:42 AM [facility] Comment: THIS ASSAY IS NOT RECOMMENDED FOR PATIENTS UNDERGOING TREATMENT WITH ELTROMBOPAG DUE TO THE POTENTIAL FOR FALSELY ELEVATED RESULTS. TOTAL PROTEIN S/P/B 7.3 6.4 - 8.2 G/DL 06/29/2025 5:42 AM [facility] ALBUMIN S/P/B 2.8(L) 3.4 - 5.0 G/DL 06/29/2025 5:42 AM [facility] AST 8(L) 15 - 37 U/L 06/29/2025 5:42 AM [facility] ALT 11(L) 16 - 60 U/L 06/29/2025 5:42 AM [facility] ALKALINE PHOSPHATASE S/P/B 97 50 - 136 U/L 06/29/2025 5:42 AM [facility] ANION GAP 6.2 2 - 10 MMOL/L 06/29/2025 5:42 AM [facility] BUN CREATININE RATIO 29.9(H) 6 - 26 06/29/2025 5:42 AM [facility] A/G RATIO 0.6(L) 1.0 - 2.0 RATIO 06/29/2025 5:42 AM [facility] GFR ESTIMATE >90 >90 ML/MIN/1.7 3 M2 06/29/2025 5:42 AM [facility] Comment: NOTE: eGFR is not calculated for patients <18 years of age or gender unknown. This is an estimated GFR calculation using the new CKD EPI creatinine equation without race and so does not require a correction factor for race. This estimated GFR should not be used for calculating drug doses. BLOOD VENOUS BLOOD SPECIMEN / Unknown 06/29/2025 4:46 AM EQUIPMENT INSTALLATION PROFESSIONAL Shannen Parekh MD LABORATORY Final Result [facility] [address] [place] [address], [place] [phone] * (ABNORMAL) PRO-BRAIN NATRIURETIC PEPTIDE (06/29/2025 4:46 AM EQUIPMENT INSTALLATION PROFESSIONAL) PRO-B TYPE NATRIURETIC PEPTIDE 1,823(H) <450 PG/ML 06/29/2025 6:33 AM EQUIPMENT INSTALLATION PROFESSIONAL [facility] Comment: CUT POINTS ESTABLISHED BY [...] BLOOD SPECIMEN / Unknown 06/29/2025 4:46 AM EQUIPMENT INSTALLATION PROFESSIONAL Veronica Velasquez DO LABORATORY Final Result [facility] [address] [place] [address], [place] [phone] * (ABNORMAL) HEMOGLOBIN, GLYCOSYLATED (08/12/2022 8:40 AM EQUIPMENT INSTALLATION PROFESSIONAL) HGB A1C 7.2(H) <5.7 % 08/12/2022 1:45 PM EQUIPMENT INSTALLATION PROFESSIONAL [facility] Comment: ADA GUIDELINES 2010 5.7 TO 6.4% INCREASED RISK OF DIABETES > OR = 6.5% CONSISTENT WITH DIABETES ESTIMATED AVG GLUCOSE 160 mg/dL 08/12/2022 1:45 PM EQUIPMENT INSTALLATION PROFESSIONAL [facility] 08/12/2022 8:40 AM EQUIPMENT INSTALLATION PROFESSIONAL Edni Markham APRN LABORATORY Final Result [facility] [address] [facility] [place] [address], * (ABNORMAL) LIPID PANEL (04/02/2019) CHOLESTEROL 173 100 - 199 HDL 55 >=39 TRIGLYCERIDES 84 0 - 149 LDL (CALCULATED) 101(A) 0 - 99 VLDL CALCULATION 17 5 - 40 04/02/2019 us Doc [facility] LABORATORY Final Result from Last 3 Months or Most Recently Relevant to Health Maintenance Insurance MEDICARE MEDICARE [facility] [facility] Advance Directives * Full Code (Latest Code Status on File) Date Activated Date Inactivated Comments 06/29/2025 8:32 AM 06/30/2025 4:45 PM * Full Code Date Activated Date Inactivated Comments 08/12/2022 3:43 PM 08/14/2022 6:12 PM Care Teams Angio Technologist Relationship Specialty Start Date End Date Ian Jaeger MD [address] [address] PCP - General INTERNAL MEDICINE 08/12/22 Ebenezer Magallanes MD [address] [place] [address] Hardy Side Stitching Machine Operator CARDIOVASCULAR DISEASE 05/19/19
[2025-07-14 11:35] LABS: Hematocrit 35.2 % (42.0-52.0); Hemoglobin 10.9 g/dL (14.0-18.0); Immature Granulocyte Percent A 1.5 % (0-0.5); Lymphocytes Absolute Auto 0.72 K/mm3 (0.9-3.2); Mean Corpuscular HGB Conc 31.0 g/dl (32-36); Mean Corpuscular Hemoglobin 26.0 pg (26-34); Mean Corpuscular Volume 83.8 fl (80-100); Nucleated Red Blood Cells Absolute Auto 0.000 K/mm3 (0.0-0.012); Nucleated Red Blood Cells Perc 0.0 % (0.0-0.2); Platelet Count Result 280 k/mm3 (150-375); Red Blood Count 4.20 M/mm3 (4.6-6.20); White Blood Count 2.0 K/mm3 (4.5-10.0)
[2025-07-14 11:41] LABS: Alanine Aminotransferase 19 U/L (6-50); Albumin Level 3.6 g/dL (3.5-5.1); Alkaline Phosphatase 101 U/L (38-126); Anion Gap 8 mmol/L (4-12); Aspartate Amino Transferase 28 U/L (17-59); Bilirubin,Total 0.5 mg/dL (0.2-1.3); Blood Urea Nitrogen 27 mg/dL (9-20); Calcium 9.0 mg/dL (8.4-10.2); Carbon Dioxide 22 mmol/L (22-30); Chloride 105 mmol/L (98-107); Estimated CRCL calculation 68 ml/min; Estimated Glomerular Filt Rate > 60; Glucose 139 mg/dL (65-110); Lipase 95 U/L (23-300); Potassium 4.3 mmol/L (3.4-5.0); Sodium 135 mmol/L (137-145); Total Protein 7.6 g/dL (6.3-8.2)
--- NOTE | 2025-07-14 11:59 | ED.GIBLEED ---
HPI - GI Bleed General Chief complaint: GI Bleed Stated complaint: bloody stool Time Seen by Provider: 07/14/25 10:57 History of Present Illness HPI Narrative: 80M h/o CAD with stents, prior UGIB, presents here with multiple episodes of bloody stools, sent here by his PCP. Related Data Home Medications ?Medication ?Instructions ?Recorded ?Confirmed ?Last Taken ?Type aspirin 81 mg tablet,delayed 81 mg PO DAILY 11/29/21 07/07/25 Unknown History release latanoprost 0.005 % eye drops 1 drp EACH EYE QPM 11/29/21 07/07/25 Unknown History nitroglycerin 0.4 mg sublingual 0.4 mg sublingual Q5M PRN Chest 11/29/21 07/07/25 Unknown History tablet Pain potassium chloride 20 mEq 20 meq PO DAILY 11/29/21 07/07/25 Unknown History tablet,extended release ticagrelor 60 mg tablet (Brilinta) 60 mg PO Q12H 11/29/21 07/07/25 Unknown History sacubitril 24 mg-valsartan 26 mg 1 tablet PO BID 09/04/22 07/07/25 Unknown History tablet (Entresto) blood sugar diagnostic (OneTouch 06/28/25 07/07/25 Unknown History Ultra Test strips) fluticasone 250 mcg-salmeterol 50 1 inh inhalation BID 06/28/25 07/07/25 Unknown History mcg/dose blistr powdr for inhalation (Advair Diskus) glucosamine TFe-S3-Agzmmpdoh 1 tablet PO DAILY 06/28/25 07/07/25 Unknown History elise 1,500 mg-400 unit-100 mg tablet loratadine 10 mg tablet (Claritin) 10 mg PO DAILY 06/28/25 07/07/25 Unknown History tamsulosin 0.4 mg capsule 0.4 mg PO DAILY 06/28/25 07/07/25 Unknown History cyanocobalamin (vitamin B-12) 50 50 mcg PO DAILY 07/01/25 07/07/25 Unknown History mcg tablet (Vitamin B-12) evolocumab 140 mg/mL subcutaneous See Rx Instructions .Route .COMPLEX 07/01/25 07/07/25 Unknown History syringe (Repatha Syringe) metformin 500 mg tablet See Rx Instructions .Route .COMPLEX 07/01/25 07/07/25 Unknown History metoprolol succinate 25 mg 25 mg PO DAILY 07/01/25 07/07/25 Unknown History tablet,extended release 24 hr Allergies Allergy/AdvReac Type Severity Reaction Status Date / Time carvedilol Allergy Unknown unknown Verified 07/07/25 09:35 lisinopril Allergy Unknown Swelling Verified 07/07/25 09:35 varenicline Allergy Unknown unknown Verified 07/07/25 09:35 Rlbxkny-QLG-WxQ Reductase AdvReac Unknown Verified 07/07/25 09:35 Inhibitor Review of Systems Review of Systems: All systems reviewed & are unremarkable except as noted in HPI and below [facility] Past Medical History Medical History Weakness Hypertension Type 2 diabetes mellitus Peptic ulcer Congestive heart failure Coronary artery disease Effusion of knee joint Left knee DJD Right knee DJD Upper respiratory tract infection Tendinitis of right rotator cuff Primary osteoarthritis of right shoulder Impingement syndrome of right shoulder Chronic right shoulder pain Myocardial infarction Rotator cuff tear arthropathy of right shoulder Lumbosacral spondylosis with radiculopathy Surgical History Surgical History History of coronary artery stent placement Family History Family History Other Acute myocardial infarction Breast cancer Social History Social History Social History: Surrogate medical decision maker: Alana Hdezor, friend. Code status: Full code. Smoking packs per day: 0.25 Smoking cigarettes per day: 5.0 Years smoked: 60 Smoking pack-years: 15.00 Smoking status: Former smoker Tobacco type: cigarettes Second hand tobacco smoke exposure: No Alcohol intake: never Substance use: current Substance use type: marijuana Last use: 12/07/24 Lack of Transportation: No Lack of Food: Never True Current Housing: I Have Housing Concerned About Future Housing: No Difficulty Paying Gas/Electric Bills: No Difficulty Paying for Meds: No Currently Unemployed: No Education: High School Diploma/GED Difficulty w/ Childcare or Family Care: No Living arrangements: alone Additional living arrangements comments: Lives in [place]. Occupation/Education: retired Additional occupation/education comments: [employer]. Spiritual care concerns: No Agree to blood products: Yes Exam Narrative: EXAMINATION OF ORGAN SYSTEMS/BODY AREAS: Constitutional: Vital signs per nursing GENERAL: Appears tired HEAD: Normal with no signs of head trauma. EYES: EOMI, conjunctiva normal ENT: Hearing grossly intact LUNGS: Dyspneic HEART: [Regular rate and rhythm] ABD: [Soft], [nontender to palpation] RECTAL: Bloody stool in vault EXT: Normal range of motion SKIN: No rash NEURO: [Alert. No gross focal sensory or strength deficits.] PSYCH: Normal affect Course Vital Signs Vital signs: Vital Signs Temperature 97.7 F 07/14/25 10:24 Pulse Rate 104 H 07/14/25 10:24 Respiratory Rate 20 07/14/25 10:24 Blood Pressure 108/56 L 07/14/25 10:24 Pulse Oximetry 100 07/14/25 10:24 Oxygen Delivery Room Air 07/14/25 10:24 Temperature 97.7 F 07/14/25 10:24 Pulse Rate 86 07/14/25 13:35 Respiratory Rate 16 07/14/25 13:35 Blood Pressure 94/59 L 07/14/25 13:35 Pulse Oximetry 98 07/14/25 13:35 Oxygen Delivery Room Air 07/14/25 10:24 MDM MDM Narrative Medical decision making narrative: 80-year-old male presenting with nausea/vomiting, diarrhea, with blood in his stools. On exam he has had some slight shortness of breath though they state this is normal for him, he does have some bloody stool in his rectum, abdomen soft and nontender. Workup initiated, for for his hemoglobin returned, his blood pressure seemed slightly low, I did therefore order a transfusion just in case, thankfully hemoglobin returned normal at 10.8, and patient has not had any further bloody bowel movements the last 3 hours. At this point, since his CTA abdomen/pelvis is also unremarkable, discussed with GI, patient/, who are comfortable with him staying here for further evaluation, discussed with hospitalist for admission. Urine does show a UTI so antibiotics started. No signs of fluid overload on CT so I did order gentle fluid hydration.. Differential Diagnosis Differential Diagnosis: Differential Diagnostic considerations for GI bleeding include PUD, varices, diverticular bleed, ischemic colitis, Meckel?s diverticulum, AV malformation, radiation colitis, infectious colitis, inflammatory colitis, hemorrhoids, Adelina-Duggan syndrome, gastrointestinal hemorrhage, melena, anal fissure. Lab Data 07/14/25 11:18 07/14/25 11:18 Labs: Lab Results 07/14/25 07/14/25 07/14/25 Range/Units 11:17 11:18 12:31 WBC 2.0 L (4.5-10.0) K/mm3 RBC 4.20 L (4.6-6.20) M/mm3 Hgb 10.9 L (14.0-18.0) g/dL Hct 35.2 L (42.0-52.0) % MCV 83.8 (80-100) fl MCH 26.0 (26-34) pg MCHC 31.0 L (32-36) g/dl RDW 17.6 H (11.5-14.5) % Plt Count 280 (150-375) k/mm3 MPV 9.2 (7.4-10.4) fl Immature Gran % (Auto) 1.5 H (0-0.5) % Neut % (Auto) 49.3 (45.5-73.1) % Lymph % (Auto) 35.8 (18.3-44.2) % [place] % (Auto) 11.9 H (2.6-8.5) % Eos % (Auto) 1.5 (0-4.4) % Baso % (Auto) 0.0 L (0.2-1.2) % Lymph # (Auto) 0.72 L (0.9-3.2) K/mm3 [place] # (Auto) 0.2 (0.1-0.6) K/mm3 Eos # (Auto) 0.0 (0-0.3) K/mm3 Baso # (Auto) 0.0 (0.0-0.1) K/mm3 Abs Immat Gran (auto) 0.03 (0.00-0.031) K/mm3 Absolute Neuts (auto) 1.0 L (1.3-6.7) K/mm3 Absolute Nucleated RBC 0.000 (0.0-0.012) K/mm3 Band Neutrophils % Not Reportable Nucleated RBC % 0.0 (0.0-0.2) % Atypical Lymphocytes Present Platelet Estimate Adequate (Adequate) Hypochromasia 1+ Anisocytosis 2+ Schistocytes None seen PT 13.2 (11.1-14.7) Seconds INR 1.0 APTT 36.2 (22.3-36.8) Seconds Sodium 135 L (137-145) mmol/L Potassium 4.3 (3.4-5.0) mmol/L Chloride 105 (98-107) mmol/L Carbon Dioxide 22 (22-30) mmol/L Anion Gap 8 (4-12) mmol/L BUN 27 H (9-20) mg/dL Creatinine 0.68 L (0.7-1.3) mg/dL Estim Creat Clear Calc 68 ml/min Estimated GFR > 60 (59 - ) Glucose 139 H (65-110) mg/dL Calcium 9.0 (8.4-10.2) mg/dL Total Bilirubin 0.5 (0.2-1.3) mg/dL AST 28 (17-59) U/L ALT 19 (6-50) U/L Alkaline Phosphatase 101 (38-126) U/L Total Protein 7.6 (6.3-8.2) g/dL Albumin 3.6 (3.5-5.1) g/dL Lipase 95 (23-300) U/L Urine Color Yellow (Yellow) Urine Appearance Cloudy H (Clear) Urine pH 5.5 (5.0-9.0) Ur Specific [place] 1.010 (1.001-1.035) Urine Protein Negative (Negative) mg/dL Urine Glucose (UA) 3+ H (Negative) mg/dL Urine Ketones Negative (Negative) mg/dL Ur Blood (Man) 2+ H (Negative) Urine Nitrate Negative (Negative) Urine Bilirubin Negative (Negative) Urine Urobilinogen 0.2 (<2.0) mg/dL Leukocyte Esterase Rfl 2+ H (Negative) BRYN/UL Urine RBC 21-50 H (0-2) /hpf Urine WBC 51-100 H (0-3) /hpf Ur Squamous Epith Cells None seen (Few) /hpf Urine Bacteria 4+ H /hpf Urine Casts 3-5 Blood Type A Positive Antibody Screen Negative Crossmatch See Detail Imaging Data Radiologist's impression: ITS Impressions Abdomen/Pelvis CTA 07/14/25 12:36 IMPRESSION: 1. No evidence of active GI bleed or other acute abnormality. Chest X-Ray 07/14/25 13:21 IMPRESSION: 1. Recommend CT chest to better evaluate right midlung opacity. Discharge Plan Discharge Clinical Impression: Rectal bleeding Patient Disposition: Still a Patient Condition: Serious Patient Language: Polish Prescriptions: No Action Vitamin B-12 50 mcg tablet 50 mcg PO DAILY aspirin 81 mg tablet,delayed release (DR/EC) 81 mg PO DAILY Patient Comments: on provided med list Brilinta 60 mg tablet 60 mg PO Q12H latanoprost 0.005 % drops 1 drp EACH EYE QPM nitroglycerin 0.4 mg tablet, sublingual 0.4 mg sublingual Q5M PRN (Reason: Chest Pain) Rx Instructions: do not exceed 3 doses per episode potassium chloride 20 mEq tablet extended release 20 meq PO DAILY Entresto 24-26 mg tablet 1 tablet PO BID Patient Comments: on provided med list metoprolol succinate 25 mg tablet extended release 24 hr 25 mg PO DAILY fluticasone propion-salmeterol [Advair Diskus] 250-50 mcg/dose blister with device 1 inh inhalation BID loratadine [Claritin] 10 mg tablet 10 mg PO DAILY (DME) OneTouch Ultra Test Strip See Rx Instructions .Route Rx Instructions: As directed tamsulosin 0.4 mg capsule 0.4 mg PO DAILY jdqywdfyouv-Q3-Rzrrotjeo serr 1,500-400-100 mg-unit-mg tablet 1 tablet PO DAILY Rx Instructions: give after food/meal oxycodone-acetaminophen [Percocet] 5-325 mg tablet 1 tablet PO Q6H PRN (Reason: pain) Qty: 30 0RF metformin 500 mg tablet See Rx Instructions .ROUTE .COMPLEX Dose Instruction: TAKE 2 TABLETS IN THE MORNING AND 1 TABLET IN THE EVENING Rx Instructions: Take 2 tablets in the AM and 1 tab in the PM furosemide 40 mg tablet See Rx Instructions .ROUTE .COMPLEX Qty: 180 2RF Dose Instruction: TAKE 1 TABLET BY MOUTH TWICE A DAY Rx Instructions: TAKE 1 TABLET BY MOUTH TWICE A DAY albuterol sulfate 90 mcg/actuation HFA aerosol inhaler See Rx Instructions .ROUTE .COMPLEX Qty: 25.5 2RF Dose Instruction: 2 PUFF INHALED EVERY 4 HOURS NEEDED FOR SHORTNESS OF BREATH OR WHEEZING Rx Instructions: 2 PUFF INHALED EVERY 4 HOURS NEEDED FOR SHORTNESS OF BREATH OR WHEEZING ferrous sulfate 325 mg (65 mg iron) Tablet,Delayed Release (Dr/Ec) 325 mg PO BID Qty: 60 0RF Jardiance 10 mg Tablet 10 mg PO DAILY Qty: 30 0RF pantoprazole 40 mg tablet,delayed release (DR/EC) 40 mg PO BID Qty: 60 0RF Repatha Syringe 140 mg/mL syringe See Rx Instructions .ROUTE .COMPLEX Rx Instructions: 140 mg subcutaneously every 14 days Follow-up/Referrals: Ian Jaeger MD [Primary Care Provider, Internal Medicine]
[2025-07-14 12:04] LABS: Anisocytosis 2+; Hypochromasia 1+; Schistocytes None Seen
--- OUTSIDE RECORDS SUMMARY | 2025-07-14 12:37 | XMS_ITS | Clinical Summary ---
Author Organization [facility] Alexander ervin [facility] Address [address] [place] [address] Care Team Providers Care Hatchery Employee Name Role Phone Ian Jaeger MD Primary Care Provider [phone] Allergies Active Allergy Reactions Criticality Noted Date [...] Department Care Team Description 07/13/2025 4:30 PM SLOT ROUTER Telephone Check Up [facility] Oncology and Hematology - [place] [address] [place] [address] Rui Ellsworth MD Chronic anemia (Primary Dx) 07/13/2025 External Device Data STL ABSTRACTION Provider, Abstract 07/05/2025 Orders Only [facility] Oncology and Hematology [address] [place] [address] Rui Ellsworth MD 06/02/2025 External Device Data [...] BASIC METABOLIC PANEL Routine 07/02/2025 12:46 PM SLOT ROUTER FLOW CYTOMETRY REPORT Routine 07/02/2025 11:39 AM SLOT ROUTER from Last 3 Months Results * BASIC METABOLIC PANEL (07/02/2025 12:46 PM SLOT ROUTER) Blood Rui Ellsworth MD CHEMISTRY ORDERABLES Final Resu lt * FLOW CYTOMETRY REPORT (07/02/2025 11:39 AM SLOT ROUTER) Rui Ellsworth MD PATHOLOGY/CYTOLOGY ORDERABLES F inal Result from Last 3 Months Insurance MEDICARE PART A AND B AET[employer] CHOICE POS II Care Teams Hatchery Employee Relationship Specialty Start Date End Date Ian Jaeger MD [address] [place] [address] PCP - General Internal Medicine 03/25/25
--- OUTSIDE RECORDS SUMMARY | 2025-07-14 12:37 | XMS_ITS | Encounter Summary ---
Author Organization [facility] Healthcare Address [address] [place] [id number] Care Team Providers Care Electronic Organ Technician Name Role Phone Ian Jaeger MD Primary Care Provide r Encounter Details Date Type Department Care Team (Late st Contact Info) Description 12/08/2024 Orders Only [facility] Health Information Management [address] [place] [address] Scanning, Provider Social History Tobacco Use Types Packs/Day Years Used Date Smoking Tobacco: Every Day Cigarettes Smokeless Tobacco: Former Alcohol Use Standard Drinks/Week Comments No 0 (1 standard drink = 0.6 oz pur e alcohol) Sex and Gender Information Value Date Recorded Sex Assigned at Not on file Legal Sex Male 4:13 AM HOG OPERATOR Gender Identity Not on file Sexual [...] on filedocumented in this encounter Care Teams Electronic Organ Technician Relationship Specialty Start Date End Date Ian Jaeger MD [address] [place] [address] PCP - General Emergency Medicine 08/17/22 documented as of this encounter
--- OUTSIDE RECORDS SUMMARY | 2025-07-14 12:37 | XMS_ITS | Clinical Summary ---
Author Organization [facility] [address] Address [address] [place] [address] Care Team Providers Care Translation Director Name Role Phone Ian Jaeger MD [...] 60 mg tabletIndicatio ns:Coronary artery disease of kenaitze artery of kenaitze heart with stable angina pectoris TAKE 1 TABLET BY MOUTH TWICE A DAY 180 tablet 2 5 Active nitroglycerin (NITROSTAT) 0.4 mg SL tabletIndicatio ns:Coronary artery disease involving kenaitze coronary artery of kenaitze heart without angina pectoris Place 1 tablet [...] (06/15/2020): Added automatically from request for surgery [id number] Preoperative cardiovascular examination 02/26/20 Bradycardia 02/26/2020 Ventricular bigeminy 02/26/2020 Gastroesophageal reflux disease 03/25/2019 Bone lesion 04/01/2018 Hyperlipidemia associated with type 2 diabetes m ellitus 06/10/2017 Hypertension associated with diabetes 06/10/2017 Coronary artery disease of n ative artery of kenaitze heart with stable angina pectoris 05/29/2016 Overview (11/15/2016): Coronary artery disease involving kenaitze coronary artery of kenaitze heart without angina pectoris Chronic systolic heart [...] Type Department Care Team Description 07/13/2025 Telephone [facility] Cardiology [address] [place] [address] Jaime Pratt MD 07/01/2025 Results Follow-Up [facility] Cardiology [address] [place] [address] Leeanna Jean Baptiste NP 48 HR Holter Monitor 06/30/2025 Telephone [facility] Cardiology [address] [place] [address] [address] [place] [phone] Jaime Pratt MD 06/24/2025 2:30 PM SPACE OPERATIONS Ancillary Procedure [facility] Cardiology [address] [place] [address] [place] [phone] PVC (premature ventricular contraction); Accelerated junctional rhythm 06/18/2025 10:00 AM SPACE OPERATIONS Office Visit [facility] Cardiology [address] [place] [address] [place] [phone] Leeanna Jean Baptiste NP Chronic heart failure with reduced ejection fraction (HFrEF, <= 40%) (HCC) (Primary Dx); PVC (premature ventricular contraction); Accelerated junctional rhythm; Coronary artery disease involving kenaitze coronary artery of kenaitze heart without angina pectoris 06/18/2025 Telephone [facility] Cardiology [address] [place] [address] [place] [phone] Leeanna Jean Baptiste NP from Last 3 Months Immunizations Immunization Administration Dates Next Due Influenza, Unspecified 05/12/2020 Surgical History Surgery Date Site/Laterality Comments CARDIAC CATHETERIZATION 08/12/2016 - 08/11/2017 Prox LAD stent, later attempt to reaccess was unsuccessful 2018 Medical History Medical History Date Comments Hx Other Medical HTN, h/o PR, , obesity, hyperlipidemia, dentures,; Comments: MAF 04/26/2016 [...] on file Legal Sex Male 4:13 AM SPACE OPERATIONS Gender Identity Not on file Sexual Orientation Not on file Last Filed Vital Signs Vital Sign Reading Time Taken Comments Blood Pressure 90/56 06/18/2025 9:55 AM SPACE OPERATIONS Pulse 88 06/18/2025 9:55 AM SPACE OPERATIONS Temperature 36.5 C (97.7 F) 11/15/2020 11:14 AM CDT Respiratory Rate 19 07/25/2020 5:50 PM SPACE OPERATIONS Oxygen Saturation 96% 06/18/2025 9:55 AM SPACE OPERATIONS Inhaled Oxygen Concentration - - Weight 68.5 kg (151 lb) 06/18/2025 9:55 AM SPACE OPERATIONS Height 177.8 cm (5' 10) 06/18/2025 9:55 AM SPACE OPERATIONS Body Mass Index 21.67 06/18/2025 9:55 AM SPACE OPERATIONS Plan of Treatment Health Maintenance Due Date [...] history exists Medical Devices Implanted Type Area Inspector Salvage Device Identifier Shelf Expiration Date Model / Serial / Lot [employer] [id number] System 6-12fr Mvp Venous Closure Vascade - [id number] Implanted:Qty: 1 on 07/25/2020 by Florentin Lopez MD at [facility] [employer] 05/03/2022 800-612C-1 [id number] / / [id number] [employer] [id number] System 6-12fr Mvp Venous Closure Vascade - [id number] Implanted:Qty: 1 on 07/25/2020 by Florentin Lopez MD at [facility] [employer] 05/10/2022 800-612C-1 0U / / [id number] [employer] [id number] System 6-12fr Mvp Venous Closure Vascade - [id number] Implanted:Qty: 1 on 07/25/2020 by Florentin Lopez MD at [facility] [employer] 05/10/2022 800-612C-1 0U / / [id number] [employer] [id number] System 6-12fr Mvp Venous Closure Vascade - [id number] Implanted:Qty: 1 on 07/25/2020 by Florentin Lopez MD at [facility] [employer] 05/03/2022 800-612C-1 0U / / [id number] Stent Chest Description:proximal LAD p er daughter in law Procedures Procedure Name Priority Date/Time Associated Diagnosis Comments HOLTER MONITOR 48 HR Routine 06/24/2025 1:15 PM SPACE [employer]PERATIONS PVC (premature ventricular contraction) Accelerated junctional rhythm ELECTROCARDIOGRAM REPORT Routine 025 1:31 PM [employer]ACE [employer]PER[employer] PVC (premature ventricular contraction) Accelerated junctional rhythm Coronary artery disease involving kenaitze coronary artery of kenaitze heart without angina pectoris LIPID PANEL Routine 07/12/2023 Coronary artery disease of kenaitze artery of kenaitze heart with stable angina pectoris from Last 3 Months or Most Recently Relevant to Health Maintenance Results * 48 HR Holter Monitor (06/24/2025 1:15 PM SPACE [employer]PERATIONS) Anatomical Region Laterality Modality Electrocardiogra phy Narrative 06/30/2025 1:46 PM [employer] AMBULATORY DIGITAL PROGRAM MANAGER REPORT Patient Name: Yaneli Frank Date [...] was used to complete this document, therefore, macerator operator variances may occur. Ernesto Patrick MD, [facility] 06/30/25 Procedure Note Ernesto Patrick MD - 06/30/2025 AMBULATORY DIGITAL PROGRAM MANAGER REPORT Patient Name: Yaneli Frank Date [...] software was used to complete this document, therefore,macerator operator variances may occur. Ernesto Patrick MD, [facility] 06/30/25 Leeanna Jean Baptiste NP [facility] CARDIAC SERVICES PROCE DURES Final Result * Electrocardiogram Report (06/18/2025 1:31 PM SPACE [employer]PERATIONS) Leeanna Jean Baptiste NP ECG ORDERABLES Final [...] to Health Maintenance Insurance MEDICARE [facility] MEDICARE AETNA Care Teams Translation Director Relationship Specialty Start Date End Date Ian Jaeger MD [address] [place] [place], [place] [id number] PCP - General Emergency Medicine 08/17/22
--- OUTSIDE RECORDS SUMMARY | 2025-07-14 12:37 | XMS_ITS | Encounter Summary ---
Author Organization [facility] Healthcare Address [address] [place] [address] Care Team Providers Care Nut Sheller Name Role Phone Rinku Glover MD Primary Care Provider [phone] Ian Jaeger MD Primary Care Provide r Encounter Details Date Type Department Care Team (Late st Contact Info) Description 02/06/2018 Orders Only [facility] [place] Information Management [address] [place] [address] Scanning, Provider Social History Tobacco Use Types Packs/Day Years Used Date Smoking Tobacco: Former Cigarettes Q uit: 05/11/2016 Smokeless Tobacco: Never Alcohol Use Standard Drinks/Week Comments No 0 (1 standard drink = 0.6 oz pur e alcohol) Sex and Gender Information Value Date Recorded Sex Assigned at Not on file Legal Sex Male 4:13 AM COMPENSATION BUSINESS PARTNER Gender Identity Not on file Sexual Orientation [...] on filedocumented in this encounter Care Teams Nut Sheller Relationship Specialty Start Date End Date Rinku Glover MD [address] [place] [address] PCP - General Internal Medicine 06/10/17 08/16/22 Ian Jaeger MD [address] [place] [address] PCP - General Emergency Medicine 08/17/22 documented as of this encounter
--- OUTSIDE RECORDS SUMMARY | 2025-07-14 12:37 | XMS_ITS | Encounter Summary ---
Author Organization [facility] Healthcare Address [address] [place] [address] Care Team Providers Care Cnc Operator Name Role Phone Ian Jaeger MD Primary Care Provide r Encounter Details Date Type Department Care Team (Late st Contact Info) Description 07/01/2025 Results Follow-Up [facility] Cardiology [address] [place] [address] Leeanna Jean Baptiste NP [address] [place] [address] 48 HR Holter Monitor Social History Tobacco Use Types Packs/Day Years Used Date Smoking Tobacco: Every Day Cigarettes Smokeless Tobacco: Former Alcohol Use Standard Drinks/Week Comments No 0 (1 standard drink = 0.6 oz pur e alcohol) Sex and Gender Information Value Date Recorded Sex Assigned at Not on file Legal Sex Male 4:13 AM BLAST FURNACE TENDER Gender Identity Not on file Sexual Orientation Not on file documented as of this encounter Plan of Treatment Not on file documented as of this encounter Visit Diagnoses Not on filedocumented in this encounter Care Teams Cnc Operator Relationship Specialty Start Date End Date Ian Jaeger MD [address] [place] [address] PCP - General Emergency Medicine 08/17/22 documented as of this encounter
--- OUTSIDE RECORDS SUMMARY | 2025-07-14 12:37 | XMS_ITS | Encounter Summary ---
Author Organization [facility] Address [address] [place] [address] Care Team Providers Care Ornament Stapler Name Role Phone Ian Jaeger MD Primary Care Provider [phone] Encounter Details Date Type Department Care Team [...] on filedocumented in this encounter Care Teams Ornament Stapler Relationship Specialty Start Date End Date Ian Jaeger MD [address] [place] [phone] PCP - General Internal Medicine 03/25/25 documented as of this encounter
--- OUTSIDE RECORDS SUMMARY | 2025-07-14 12:37 | XMS_ITS | Encounter Summary ---
Author Organization [facility] Healthcare Address [address] [place] [address] Care Team Providers Care Drum Puller Name Role Phone Ian Jaeger MD Primary Care Provide r Encounter Details Date Type Department Care Team (Late st Contact Info) Description 07/13/2025 Telephone [facility] Cardiology [address] [place] [address] Jaime Pratt MD [address] [facility] [address] [place] [address] Social History Tobacco Use Types Packs/Day Years Used Date Smoking Tobacco: Every Day Cigarettes Smokeless Tobacco: Former Alcohol Use Standard Drinks/Week Comments No 0 (1 standard drink = 0.6 oz pur e alcohol) Sex and Gender Information Value Date Recorded Sex Assigned at Not on file Legal Sex Male 4:13 AM SAMPLE CASE PORTER Gender Identity Not on file Sexual Orientation Not on file documented as of this encounter Miscellaneous Notes * Telephone Encounter - Yael Chaparro RN - 07/13/2025 9:27 AM SAMPLE CASE PORTER Spoke to Adali and informed her per D/C summary that pt's diagnosis was Chest Pain and Chronic Heart Failure, no mention of [place], she verbalized understanding and apologized for missing appt tomorrowbut she does not feel comfortable getting patient out in the snow with his walker. Appt rescheduledfor 08/[address] LE CASE PORTER * Telephone Encounter - Mercedes Dalton - 07/13/2025 8:53 AM CST Adali is requesting a call back to discuss patients hospital visit. Patient had to reschedule hisappt due to the weather and was rescheduled for August. Patient and spouse, would like to discuss if he had a heart attack and those types of concerns. Please advise. Thank you. Contact : [phone] LE CASE PORTER documented in this encounter Plan of Treatment Not on file documented as of this encounter Visit Diagnoses Not on filedocumented in this encounter Care Teams Drum Puller Relationship Specialty Start Date End Date Ian Jaeger MD [address] [place] [address] PCP - General Emergency Medicine 08/17/22 documented as of this encounter
--- OUTSIDE RECORDS SUMMARY | 2025-07-14 12:37 | XMS_ITS | Clinical Summary ---
Author Organization [facility] Address [address] [place] [address] Care Team Providers Care Assistant Refinery Operator Name Role Phone Ebenezer Magallanes MD Unavailable [phone] Ian Jaeger MD Primary Care Provider [phone] Allergies Active Allergy Reactions Criticality Noted Date [...] (08/12/2022): Added automatically from request for surgery [id number] Bradycardia 02/26/2020 Ventricular bigeminy 02/26/2020 Gastroesophageal reflux disease 03/25/2019 Bone lesion 04/01/2018 Chronic systolic heart failure 05/29/2016 Overview (08/12/2022): Chronic systolic (congestive) heart failure Coronary artery disease of n ative artery of [place] heart with stable angina pectoris 05/29/2016 Overview (08/12/2022): Coronary artery disease involving [place] coronary artery of [place] heart without angina pectoris Obstructive sleep apnea syndrome 05/29/2016 Overview (08/12/2022): Obstructive sleep apnea Cardiomyopathy 04/26/2016 Overview (08/12/2022): Cardiomyopathy Dyspnea on exertion 04/26/2016 Overview (08/12/2022): Dyspnea on effort [id number] 03/23/2016 Hypertension associated with diabetes 05/18/2013 Overview [...] Follow-up Call [facility] [place] [address] Lea Santillan LPN Follow Up Call ([place] 06/29-06/30/25) 06/29/2025 4:43 AM TELEPHONE OPERATOR - 06/30/2025 2:39 PM TELEPHONE OPERATOR Hospital Encounter [facility] [place] [address] Shannen Parekh MD Dale, Maurice D, Marcos [...] place to sleep or slept in a [facility] (including now)? No 08/12/2022 Sex and Gender Information Value Date Recorded Sex Assigned at Male 06/29/2025 2:52 PM TELEPHONE OPERATOR Legal Sex Male 8:36 PM CDT Gender Identity Male 06/29/2025 2:52 PM TELEPHONE OPERATOR Sexual Orientation Straight 06/29/2025 2: 52 PM TELEPHONE OPERATOR Last Filed Vital Signs Vital Sign Reading Time Taken Comments Blood Pressure 104/60 06/30/2025 11:22 AM TELEPHONE OPERATOR Pulse 81 06/30/2025 11:22 AM TELEPHONE OPERATOR Temperature 37.3 C (99.1 F) 06/30/2025 11:22 AM TELEPHONE OPERATOR Respiratory Rate 21 06/30/2025 11:22 AM TELEPHONE OPERATOR Oxygen Saturation 99% 06/30/2025 11:22 AM TELEPHONE OPERATOR Inhaled Oxygen Concentration - - Weight 69.9 kg (154 lb 1.6 oz) 06/30/2025 3:37 A M TELEPHONE OPERATOR Height 177.8 cm (5' 10) 06/29/2025 4:51 AM TELEPHONE OPERATOR Body Mass Index 22.11 06/29/2025 4:51 AM TELEPHONE OPERATOR Plan of Treatment Health Maintenance Due [...] Macario RN Medical Devices Implanted Type Area Negotiator Sales Device Identifier Shelf Expiration Date Model / Serial / Lot Clip Resolution 2.8mm 360 235cm 11mm Open - [id number] Implanted:Qty : 1 on 08/13/2022 by Landon Nickerson MD at [facility] Clip Implant N/A: Abdomen MiTurno [id number] 02/21/2025 [id number] / / [id number] Description:JE junction Procedures Procedure Name Priority Date/Time Associated Diagnosis Comments POCT GLUCOSE - DOCKED DEVICE Routine 06/30/2025 10:53 AM TELEPHONE OPERATOR POCT GLUCOSE - DOCKED DEVICE Routine 06/30/2025 6:02 AM TELEPHONE OPERATOR MAGNESIUM Routine 06/30/2025 5:39 AM TELEPHONE OPERATOR BASIC METABOLIC PANEL Routine 06/30/2025 5:39 AM TELEPHONE OPERATOR HC CBC AUTO W/AUTO DIFF Routine 06/30/20 5:39 AM TELEPHONE OPERATOR POCT GLUCOSE - DOCKED DEVICE Routine 06/29/2025 7:12 PM TELEPHONE OPERATOR USE ECHOCARDIOGRAM W CON Today 06/29/2025 4:07 PM TELEPHONE OPERATOR POCT GLUCOSE - DOCKED DEVICE Routine 06/29/2025 2:39 PM TELEPHONE OPERATOR RESPIRATORY PCR PNL LIMITED STAT 06/29/2025 11:18 AM TELEPHONE OPERATOR CTA CHEST PE PROTOCOL STAT 06/29/2025 6:36 AM TELEPHONE OPERATOR ECG 12-LEAD STAT 06/29/2025 6:21 AM TELEPHONE OPERATOR TROPONIN, QUANT STAT 06/29/2025 6:18 AM TELEPHONE OPERATOR XR CHEST PORTABLE STAT 06/29/2025 4:5 3 AM TELEPHONE OPERATOR PRO-BRAIN NATRIURETIC PEPTIDE Routine 06/29/2025 4:46 AM TELEPHONE OPERATOR TROPONIN, QUANT STAT 06/29/2025 4:46 AM TELEPHONE OPERATOR COMPREHENSIVE METABOLIC PANEL STAT 06/29/2025 4:46 AM TELEPHONE OPERATOR HC CBC AUTO W/AUTO DIFF STAT 06/29/20 4:46 AM TELEPHONE OPERATOR ECG 12-LEAD Routine 06/29/2025 4:37 AM TELEPHONE OPERATOR HEMOGLOBIN, GLYCOSYLATED Routine 08/12/2022 8:40 AM TELEPHONE OPERATOR LIPID PANEL Routine 04/02/2019 from Last 3 Months or Most Recently Relevant to Health Maintenance Results * (ABNORMAL) POCT glucose (06/30/2025 10:53 AM TELEPHONE OPERATOR) Only the most recent of4 resultswithin the time period is included. GLUCOSE POC 125(H) 70 - 99 mg/dL 06/30/2025 11:08 AM TELEPHONE OPERATOR [facility] 06/30/2025 10:5 3 AM TELEPHONE OPERATOR Marcos Mahajan MD POCT ORDERABLES - ZOHRA CE Final Result [facility] [address] [place] [address], [place] [phone] * MAGNESIUM (06/30/2025 5:39 AM TELEPHONE OPERATOR) Pathologist [facility] MAGNESIUM 2.3 1.8 - 2.4 MG/DL 06/30/2025 6:39 AM TELEPHONE OPERATOR [facility] BLOOD VENOUS BLOOD SPECIMEN / Unknown 06/30/2025 5:39 AM TELEPHONE OPERATOR Lisseth Jimenez NP LABORATORY Final Result Performing Organization Address [facility]/ZIP Co de Phone Number [facility] [address] [place] [address], [place] [phone] * (ABNORMAL) CBC W/DIFF AUTOMATED (06/30/2025 5:39 AM TELEPHONE OPERATOR) Only the most recent of2 resultswithin the time period is included. WBC 1.89(LL) 4.5 - 11.0 x10'3/uL 06/30/2025 7:13 AM TELEPHONE OPERATOR [facility] Comment: This result has been called to LARISSA SONI by [id number] on 06/30/2025 07:13:02, and has been read back. RBC 4.44(L) 4.70 - 6.10 x10'6/uL 06/30/2025 7:13 AM TELEPHONE OPERATOR [facility] HGB 11.4(L) 14.0 - 18.0 G/DL 06/30/2025 7:13 AM TELEPHONE OPERATOR [facility] HCT 36.5(L) 43.0 - 54.0 % 06/30/2025 7:[address] [facility] MCV 82.2 80.0 - 94.0 FL 06/30/2025 7:[address] [facility] MCH 25.7(L) 27.0 - 31.0 PG 06/30/2025 7:[address] [facility] MCHC 31.2(L) 32.0 - 36.0 G/DL 06/30/2025 7:[address] [facility] RDW 17.7(H) 11.5 - 14.5 % 06/30/2025 7:[address] [facility] PLT 275 130 - 400 x10'3/uL 06/30/2025 7:[address] [facility] MPV 9.9 9.3 - 12.2 FL 06/30/2025 7:[address] [facility] DIFFERENTIAL TYPE MANUAL DIFFERENTIAL 06/30/2025 7:[address] [facility] SEG NEUTROPHILS 33 % 7:[address] [facility] LYMPHOCYTES 57 % 06/30/2025 7:[address] [facility] MONOCYTES 8 % 06/30/2025 7:[address] [facility] EOSINOPHILS 2 % 06/30/2025 7:[address] [facility] ABS. NEUTROPHILS 0.62(L) 1.80 - 7.70 x10'3/uL 06/30/2025 7:[address] [facility] ABS. LYMPHOCYTES 1.08 1.00 - 4.80 x10'3/uL 06/30/2025 7:[address] [facility] ABS. MONOCYTES 0.15(L) 0.30 - 0.82 x10'3/uL 06/30/2025 7:[address] [facility] ABS. EOSINOPHILS 0.04 0.04 - 0.54 x10'3/uL 06/30/2025 7:[address] [facility] RBC MORPHOLOGY RBC MORPHOLOGY APPEARS NORMAL. SLIDE REVIEWED. 06/30/2025 7:[address] [facility] PLT EST. ADEQUATE 06/30/2025 7:[address] [facility] BLOOD VENOUS BLOOD SPECIMEN / Unknown 06/30/2025 5:39 AM TELEPHONE OPERATOR Lisseth Jimenez NP LABORATORY Final Result [facility] [address] [place] [address], [place] [phone] * (ABNORMAL) BASIC METABOLIC PANEL (06/30/2025 5:39 AM TELEPHONE OPERATOR) GLUCOSE 135(H) 70 - 99 MG/DL 06/30/2025 6:[address] [facility] BUN 15 7 - 18 MG/DL 06/30/2025 6:[address] [facility] CREATININE S/P/B 0.52(L) 0.7 - 1.3 MG/DL 06/30/2025 6:[address] [facility] SODIUM S/P/B 139 136 - 145 MMOL/L 06/30/2025 6:[address] [facility] POTASSIUM S/P/B 3.5 3.5 - 5.1 MMOL/L 06/30/2025 6:[address] [facility] CHLORIDE S/P/B 108 97 - 115 MMOL/L 06/30/2025 6:[address] [facility] CO2 27.6 21 - 32 MMOL/L 06/30/2025 6:[address] [facility] CALCIUM S/P/B 9.1 8.5 - 10.1 MG/DL 06/30/2025 6:39 AM TELEPHONE OPERATOR [facility] ANION GAP 3.4 2 - 10 MMOL/L 06/30/2025 6:39 AM TELEPHONE OPERATOR [facility] BUN CREATININE RATIO 28.8(H) 6 - 26 06/30/2025 6:39 AM TELEPHONE OPERATOR [facility] GFR ESTIMATE >90 >90 ML/MIN/1.7 3 M2 06/30/2025 6:[address] [facility] Comment: NOTE: eGFR is not calculated for patients <18 years of age or gender unknown. This is an estimated GFR calculation using the new CKD EPI creatinine equation without race and so does not require a correction factor for race. This estimated GFR should not be used for calculating drug doses. BLOOD VENOUS BLOOD SPECIMEN / Unknown 06/30/2025 5:39 AM TELEPHONE OPERATOR Lisseth Jimenez NP LABORATORY Final Result [facility] [address] [place] [address], * USE ECHOCARDIOGRAM W CON (06/29/2025 4:07 PM TELEPHONE OPERATOR) Anatomical Region Laterality Modality NA Echocardiogram 06/29/2025 4:24 PM TELEPHONE OPERATOR Narrative 06/30/2025 8:44 AM TELEPHONE OPERATOR Echocardiography Report Pat.Name: PHILL MONAE Pat.ID: [id number] .Date: 06/29/2025 Exam Time: 4:24:00 PM Study Type:ECHO WITH CARDIAC DOPPLER COMP Height: 70 in Weight: 180 lb BSA: 2 m2 Age: 904/29/1945,80Y Sex: M BP: 95/52 HR: 75 bpm Sonogrphr: Taylor Louise RDCS Pat. Stat.:Inpatient Room: [facility] Reason for Study:Chest pain Procedures: 2D, [...] cm2 (3-5) AV mnPG 3 mmHg Area (Dcikson) 3.98 cm2 (3-5) MV Forward Flow MV [...] 43 mm Right Ventricle 23 mm Major Ledbetter 73 mm MMODE TA Tricuspid Annul 27.4 mm <Electronic Signature> 06/30/2025 08:44 AM Josr James M.D. Procedure Note Josr James MD - 06/30/2025 Echocardiography Report Pat.Name: PHILL MONAE Pat.ID: [id number] .Date: 06/29/2025 Exam Time: 4:24:00 PM Study Type:ECHO WITH CARDIAC DOPPLER COMP Height: 70 in Weight: 180 lb BSA: 2 m2 Age: 904/29/1945,80Y Sex: M BP: 95/52 HR: 75 bpm Sonogrphr: Taylor Louise RDCS Pat. Stat.:Inpatient Room: [facility] Reason for Study:Chest pain Procedures: 2D, [...] 43 mm Right Ventricle 23 mm Major Ledbetter 73 mm MMODE TA Tricuspid Annul 27.4 mm <Electronic Signature> 06/30/2025 08:44 AM Josr James M.D. Harjeet Yip MD ECHO Final Res ult * RESPIRATORY PCR PNL LIMITED (FLU A/FLU B/RSV/COVID) (06/29/2025 11:18 AM TELEPHONE OPERATOR) SPEC DESCRIPTION NASOPHARYNGEAL SWAB 06/29/2025 11:18 AM TELEPHONE OPERATOR [facility] CORONAVIRUS SARS COV 2 PCR (RESP) NEGATIVE NEGATIVE 06/29/2025 12:17 PM TELEPHONE OPERATOR [facility] INFLUENZA A PCR (RESP) NEGATIVE NEGATIVE 06/29/2025 12:17 PM TELEPHONE OPERATOR [facility] INFLUENZA B PCR (RESP) NEGATIVE NEGATIVE 06/29/2025 12:17 PM TELEPHONE OPERATOR [facility] RSV PCR (RESP) NEGATIVE NEGATIVE 06/29/2025 12:17 PM TELEPHONE OPERATOR [facility] SWAB NASOPHARYNGEAL STRUCTURE / Unknown 06/29/2025 11:18 AM TELEPHONE OPERATOR Lisseth Jimenez NP MICROBIOLOGY - GENERAL ORDERA BLES Final Result [facility] [address] [place] [address], * CTA CHEST PE PROTOCOL (06/29/2025 6:36 AM TELEPHONE OPERATOR) Anatomical Region Laterality Modality Chest Computed Tomogra phy 06/29/2025 6:45 AM TELEPHONE OPERATOR Impressions 06/29/2025 6:56 AM TELEPHONE OPERATOR Impression: 1. No pulmonary embolism identified. 2. The heart is mildly enlarged. 3. The ascending thoracic aorta is mildly ectatic measuring 4 cm in diameter. 4. Probable bilateral adrenal adenomas. 5. Nonobstructing left renal stone. Referred By: Interpreted By: Jaime Yeager MD, 06/29/2025 6:45 AM Narrative 06/29/2025 6:56 AM TELEPHONE OPERATOR [address] [address] Examination: CT angiography of the chest with [...] Procedure Note Jaime Yeager MD - 06/29/[address] [address] Examination: CT angiography of the chest with [...] * ECG 12 lead (06/29/2025 6:21 AM TELEPHONE OPERATOR) Only the most recent of2 resultswithin the time period is included. ECG QT [address] [facility] ECG QTC [facility] 06/29/2025 6:21 AM TELEPHONE OPERATOR Narrative [facility] - 06/30/2025 12:41 PM TELEPHONE OPERATOR [facility] [address] [facility] Test Date: 2025-06-29 Pat Name: PHILL MONAE Department: 41 Room: A407 Gender: Male Slitting Machine Feeder: [id number] cp : 1945 Requested By: VERONICA VELASQUEZ Order Number: [id number] Reading MD: Joelle Leon Measurements Intervals Ledbetter Rate: 77 P: 122 IA: 167 QRS: -61 QRSD: 149 T: 84 QT: 375 QTc: 424 Interpretive Statements SINUS RHYTHM WITH OCCASIONAL VENTRICULAR PREMATURE COMPLEXES LEFT AXIS DEVIATION [QRS AXIS < -30] LEFT BUNDLE BRANCH BLOCK [120+ ms QRS DURATION, 80+ ms Q/S IN V1/V2, 85+ ms R IN I/aVL/V5/V6] Compared to ECG 06/29/2025 04:37:19 No significant changes PHONE OPERATOR Procedure Note Joelle Leon MD - 06/30/2025 [facility] [address] [facility] Test Date: 2025-06-29 Pat Name: PHILL MONAE Department: 41 Room: A407 Gender: Male Slitting Machine Feeder: [id number] cp : 1945 Requested By: VERONICA VELASQUEZ Order Number: [id number] Reading MD: Joelle Leon Measurements Intervals Ledbetter Rate: 77 P: 122 IA: 167 QRS: -61 QRSD: 149 T: 84 QT: 375 QTc: 424 Interpretive Statements SINUS RHYTHM WITH OCCASIONAL VENTRICULAR PREMATURE COMPLEXES LEFT AXIS DEVIATION [QRS AXIS < -30] LEFT BUNDLE BRANCH BLOCK [120+ ms QRS DURATION, 80+ ms Q/S IN V1/V2, 85+ms R IN I/aVL/V5/V6] Compared to ECG 06/29/2025 04:37:19 No significant changes PHONE OPERATOR Veronica Velasquez DO ECG ORDERABLES Final Result Performing Organization Address City/[facility]/ZIP Co de Phone Number [facility] * TROPONIN, QUANT (06/29/2025 6:18 AM TELEPHONE OPERATOR) Only the most recent of2 resultswithin the time period is included. TROPONIN I HIGH SENSITIVITY 11 <79 ng/L 06/29/2025 6:53 AM TELEPHONE OPERATOR [facility] Comment: HIGH DOSES OF BIOTIN, TROPONIN-SPECIFIC AUTOANTIBODIES, AND ANTIBODY THERAPY CONTAINING HAMA MAY INTERFERE WITH THIS TEST RESULT. CORRELATION TO CLINICAL HISTORY AND PRESENTATION RECOMMENDED. BLOOD VENOUS BLOOD SPECIMEN / Unknown 06/29/2025 6:18 AM TELEPHONE OPERATOR Veronica Velasquez DO LABORATORY Final Result Performing Organization Address City/[facility]/ZIP Co de Phone Number [facility] [address] [place] [address], [place] [phone] * XR CHEST PORTABLE (06/29/2025 4:53 AM TELEPHONE OPERATOR) Anatomical Region Laterality Modality Chest Radiographic Christine ging 06/29/2025 4:54 AM TELEPHONE OPERATOR Impressions 06/29/2025 5:01 AM TELEPHONE OPERATOR IMPRESSION:===== 1. No convincing acute/active cardiopulmonary radiographic finding 2.. Lung hyperinflation compatible with COPD Referred By: Interpreted By: Kole Neal MD, 06/29/2025 4:54 AM Narrative 06/29/2025 5:01 AM TELEPHONE OPERATOR [address] [address] Examination: Chest x-ray 1 view Exam date/time: [...] Procedure Note Kole Neal MD - 06/29/[address] [address] Examination: Chest x-ray 1 view Exam date/time: [...] (ABNORMAL) COMPREHENSIVE METABOLIC PANEL (06/29/2025 4:46 AM TELEPHONE OPERATOR) Pathologist [facility] GLUCOSE 125(H) 70 - 99 MG/DL 06/29/2025 5:42 AM TELEPHONE OPERATOR [facility] BUN 18 7 - 18 MG/DL 06/29/2025 5:[address] [facility] CREATININE S/P/B 0.60(L) 0.7 - 1.3 MG/DL 06/29/2025 5:[address] [facility] SODIUM S/P/B 138 136 - 145 MMOL/L 06/29/2025 5:[address] [facility] POTASSIUM S/P/B 3.6 3.5 - 5.1 MMOL/L 06/29/2025 5:[address] [facility] CHLORIDE S/P/B 105 97 - 115 MMOL/L 06/29/2025 5:[address] [facility] CO2 26.8 21 - 32 MMOL/L 06/29/2025 5:[address] [facility] CALCIUM S/P/B 9.1 8.5 - 10.1 MG/DL 06/29/2025 5:[address] [facility] BILIRUBIN TOTAL S/P/B 0.4 0.2 - 1.2 MG/DL 06/29/2025 5:[address] [facility] Comment: THIS ASSAY IS NOT RECOMMENDED FOR PATIENTS UNDERGOING TREATMENT WITH ELTROMBOPAG DUE TO THE POTENTIAL FOR FALSELY ELEVATED RESULTS. TOTAL PROTEIN S/P/B 7.3 6.4 - 8.2 G/DL 06/29/2025 5:[address] [facility] ALBUMIN S/P/B 2.8(L) 3.4 - 5.0 G/DL 06/29/2025 5:[address] [facility] AST 8(L) 15 - 37 U/L 06/29/2025 5:[address] [facility] ALT 11(L) 16 - 60 U/L 06/29/2025 5:[address] [facility] ALKALINE PHOSPHATASE S/P/B 97 50 - 136 U/L 06/29/2025 5:[address] [facility] ANION GAP 6.2 2 - 10 MMOL/L 06/29/2025 5:[address] [facility] BUN CREATININE RATIO 29.9(H) 6 - 26 06/29/2025 5:[address] [facility] A/G RATIO 0.6(L) 1.0 - 2.0 RATIO 06/29/2025 5:[address] [facility] GFR ESTIMATE >90 >90 ML/MIN/1.7 3 M2 06/29/2025 5:[address] [facility] Comment: NOTE: eGFR is not calculated for patients <18 years of age or gender unknown. This is an estimated GFR calculation using the new CKD EPI creatinine equation without race and so does not require a correction factor for race. This estimated GFR should not be used for calculating drug doses. BLOOD VENOUS BLOOD SPECIMEN / Unknown 06/29/2025 4:46 AM TELEPHONE OPERATOR Shannen Parekh MD LABORATORY Final Result [facility] [address] [place] [address], [place] [phone] * (ABNORMAL) PRO-BRAIN NATRIURETIC PEPTIDE (06/29/2025 4:46 AM TELEPHONE OPERATOR) PRO-B TYPE NATRIURETIC PEPTIDE 1,823(H) <450 PG/ML 06/29/2025 6:33 AM TELEPHONE OPERATOR [facility] Comment: CUT POINTS ESTABLISHED BY [...] BLOOD SPECIMEN / Unknown 06/29/2025 4:46 AM TELEPHONE OPERATOR Veronica Velasquez DO LABORATORY Final Result [facility] [address] [place] [address], [place] [phone] * (ABNORMAL) HEMOGLOBIN, GLYCOSYLATED (08/12/2022 8:40 AM TELEPHONE OPERATOR) HGB A1C 7.2(H) <5.7 % 08/12/2022 1:45 PM TELEPHONE OPERATOR [facility] Comment: ADA GUIDELINES 2010 5.7 TO 6.4% INCREASED RISK OF DIABETES > OR = 6.5% CONSISTENT WITH DIABETES ESTIMATED AVG GLUCOSE 160 mg/dL 08/12/2022 1:45 PM TELEPHONE OPERATOR [facility] 08/12/2022 8:40 AM TELEPHONE OPERATOR Edin Markham APRN LABORATORY Final Result [facility] [address] [place] [address], * (ABNORMAL) LIPID PANEL (04/02/2019) CHOLESTEROL 173 100 - 199 HDL 55 >=39 TRIGLYCERIDES 84 0 - 149 LDL (CALCULATED) 101(A) 0 - 99 VLDL CALCULATION 17 5 - 40 04/02/2019 [facility] LABORATORY Final Result from Last 3 Months or Most Recently Relevant to Health Maintenance Insurance MEDICARE MEDICARE [employer] [facility] Advance Directives * Full Code (Latest Code Status on File) Date Activated Date Inactivated Comments 06/29/2025 8:32 AM 06/30/2025 4:45 PM * Full Code Date Activated Date Inactivated Comments 08/12/2022 3:43 PM 08/14/2022 6:12 PM Care Teams Assistant Refinery Operator Relationship Specialty Start Date End Date Ian Jaeger MD [address] [address] PCP - General INTERNAL MEDICINE 08/12/22 Ebenezer Magallanes MD [address] [place] [address] Sawyer Chemical Instrumentation Officer CARDIOVASCULAR DISEASE 05/19/19
--- OUTSIDE RECORDS SUMMARY | 2025-07-14 12:37 | XMS_ITS | Encounter Summary ---
Author Organization [facility] Address [address] [address] [place] [address] Care Team Providers Care Prosthetics Lab Technician Name Role Phone No, Physician Primary Care Provider [phone] Rinku Glover MD Primary Care Provider [phone] Ian Jaeger MD Primary Care Provide r Encounter Details Date Type Department Care Team (Late st Contact Info) Description 08/23/2016 Orders Only [facility] ProviderAyala MD [address] [place] [address] Social History Tobacco Use Types Packs/Day Years Used Date Smoking Tobacco: Former Alcohol Use Standard Drinks/Week Comments No 0 (1 standard drink = 0.6 oz pur e alcohol) Sex and Gender Information Value Date Recorded Sex Assigned at Not on file Legal Sex Male 4:13 AM PIPE BOWL PAINT TRIMMER Gender Identity Not on file Sexual Orientation [...] on filedocumented in this encounter Care Teams Prosthetics Lab Technician Relationship Specialty Start Date End Date No, Physician PCP - General 04/03/17 06/09/17 Rinku Glover MD [address] [place] [address] PCP - General Internal Medicine 06/10/17 08/16/22 Ian Jaeger MD [address] [place] [address] PCP - General Emergency Medicine 08/17/22 documented as of this encounter
[2025-07-14 12:42] LABS: Add Urine Microscopic? YES; Appearance Urine Cloudy (Clear); Glucose Urine UA 3+ mg/dL (Negative); Leukocyte Esterase Ur 2+ LEU/UL (Negative); Nitrate Urine Negative (Negative); Specific Grav Ur 1.010 (1.001-1.035)
[2025-07-14] MEDS: ONDANSETRON INJ 4 MG/2 ML VIAL IV PUSH ×2 (12:45→22:34)
[2025-07-14] MEDS: PANTOPRAZOLE SODIUM IV 40 MG VIAL IV PUSH (12:48)
--- NOTE | 2025-07-14 13:14 | P.HP_ITS ---
H&P: HPI History of Present Illness Date/Time: 07/14/25 13:14 Chief Complaint: Blood in stool Narrative: male with past medical history CAD with stents patient on Brilinta, prior upper GI bleed, hypertension, diabetes, CHF, presents the hospital with bright red blood per rectum. Patient states that he had several bowel movements the other day and this morning that were bloody. He states that he has had several more bowel movements malaise in the hospital however he is also doing bowel prep for the scope tomorrow. Patient has no complaints of fevers chills nausea or vomiting. Patient's lab work shows leukopenia at 2.0, hemoglobin of 10.9 with previous hemoglobin being 12.5, platelets of 280, sodium of 135, BUN 27, creatinine of 0.68, glucose of 139, UA is cloudy with 2+ blood, 2+ leukocyte esterase, 21-50 rbc's 51-100 wbc's and 4+ bacteria. was consulted for lower GI bleed. CTA abdomen pelvis shows no sign of acute bleeding. Chest x-ray showed right mid lung opacity recommending CT. Review of Systems Review of Systems: 12 systems were reviewed and are negativ e except for as per HPI. [facility] Past Medical History Medical History Weakness Hypertension Type 2 diabetes mellitus Peptic ulcer Congestive heart failure Coronary artery disease Effusion of knee joint Left knee DJD Right knee DJD Upper respiratory tract infection Tendinitis of right rotator cuff Primary osteoarthritis of right shoulder Impingement syndrome of right shoulder Chronic right shoulder pain Myocardial infarction Rotator cuff tear arthropathy of right shoulder Lumbosacral spondylosis with radiculopathy Surgical History Surgical History History of coronary artery stent placement Family History Family History (Updated 07/14/25 @ 15:38 by Becca Umanzor RN) Father Acute myocardial infarction Mother Breast cancer Social History Social History Social History: Surrogate medical decision maker: Alana Hdezor, friend. Code status: Full code. Smoking packs per day: 0.25 Smoking cigarettes per day: 5.0 Years smoked: 60 Smoking pack-years: 15.00 Smoking status: Current every day smoker Tobacco type: cigarettes Second hand tobacco smoke exposure: Yes Alcohol intake: never Substance use: current Substance use type: marijuana Last use: 12/07/24 Lack of Transportation: No Lack of Food: Never True Current Housing: I Have Housing Concerned About Future Housing: No Difficulty Paying Gas/Electric Bills: No Difficulty Paying for Meds: No Currently Unemployed: No Education: High School Diploma/GED Difficulty w/ Childcare or Family Care: No Living arrangements: alone Additional living arrangements comments: Lives in [place]. Occupation/Education: retired Additional occupation/education comments: [employer]. Spiritual care concerns: No Agree to blood products: Yes Meds Home Medications and Allergies Home Medications ?Medication ?Instructions ?Recorded ?Confirmed ?Type aspirin 81 mg tablet,delayed 81 mg PO DAILY 11/29/21 1 09/14/24 History release latanoprost 0.005 % eye drops 1 drp EACH EYE QPM 11/2907/14/25 History nitroglycerin 0.4 mg sublingual 0.4 mg sublingual Q5M PRN Chest 11/29/21 07/14/25 History tablet Pain potassium chloride 20 mEq 20 meq PO DAILY 11/29/2111/03 History tablet,extended release ticagrelor 60 mg tablet (Brilinta) 60 mg PO Q12H 11/2907/14/25 History sacubitril 24 mg-valsartan 26 mg 1 tablet PO BID 09/0407/14/25 History tablet (Entresto) pantoprazole 40 mg tablet,delayed 40 mg PO BID #60 tab s 06/11/24 07/14/25 Rx release empagliflozin 10 mg tablet 10 mg PO DAILY #30 tabs 10/0607/14/25 Rx (Jardiance) blood sugar diagnostic (OneTouch 06/28/25 07/14/25 Tapastreet Ultra Test strips) fluticasone 250 mcg-salmeterol 50 1 inh inhalation BID 06/28/25 07/14/25 History mcg/dose blistr powdr for inhalation (Advair Diskus) loratadine 10 mg tablet (Claritin) 10 mg PO DAILY 06/1207/14/25 History oxycodone-acetaminophen 5 mg-325 1 tablet PO Q6H PRN p ain #30 tabs 06/28/25 07/14/25 Rx mg tablet (Percocet) tamsulosin 0.4 mg capsule 0.4 mg PO DAILY 06/28/2511/03 History cyanocobalamin (vitamin B-12) 50 50 mcg PO DAILY 07/0107/14/25 History mcg tablet (Vitamin B-12) evolocumab 140 mg/mL subcutaneous See Rx Instructions .Route .COMPLEX 07/01/25 07/14/25 History syringe (Repatha Syringe) metformin 500 mg tablet See Rx Instructions .Route . COMPLEX 07/01/25 07/14/25 History metoprolol succinate 25 mg 25 mg PO QPM 07/01/2507/14 History tablet,extended release 24 hr albuterol sulfate 90 mcg/actuation See Rx Instructions .Route 07/07/25 07/14/25 Rx aerosol inhaler .COMPLEX #25.5 ea furosemide 40 mg tablet See Rx Instructions .Route 1 09/06/24 07/14/25 Rx .COMPLEX #180 tabs ferrous sulfate 325 mg (65 mg 325 mg PO TID 07/14/25 1 09/14/24 History iron) tablet,delayed release Allergies Allergy/AdvReac Type Severity Reaction Status Date / Time carvedilol Allergy Severe rash Verified 07/14/25 15:34 swelling lisinopril Allergy Unknown Swelling Verified 07/14/25 15:34 anaphylaxis varenicline Allergy Unknown unknown Verified 07/14/25 15:34 [id number] Reductase AdvReac rash Verified 07/14/25 15:34 Inhibitor swelling Vital Signs Vital Signs - 24 hr 07/14/25 10:24 07/14/25 11:32 07/14/25 12:34 Temperature 97.7 F Pulse Rate 104 H 80 80 Respiratory Rate 20 18 18 Blood Pressure 108/56 L 88/57 L 119/69 Pulse Oximetry 100 99 100 Oxygen Delivery Room Air Exam Narrative: General: well appearing, appears stated age. No acute distress HEENT: normocephalic, atraumatic. Mucous membranes moist. EOMI, PERRLA, bilateral sclera anicteric, no conjunctival injection. Neck supple without JVD, lymphadenopathy, or bruit. Respiratory: clear bilaterally. No rales/rhonic/wheezes. Cardiovascular: Regular rate and rhythm, normal S1-S2. No murmurs, rubs, or clicks. PMI is nondisplaced, capillary refill less than 3 second. Abdomen: Soft, round, no pulsatile masses, nondistended and nontender. No rebound, no guarding. Bowel sounds present to all four quadrants. No high pitch or tinkling sounds, resonant to percussion. Extremities: No cyanosis, clubbing, or edema present. Pulses are palpable 2/2. Active ROM to all four extremities. Neuro: Alert and orientated x 4. PERRLA. Cranial nerves 2-12 intact without focal deficit. Skin: Warm, dry, and intact, without rash, erythema, or lesion. Psych: pleasant, cooperative, normal speech, normal affect, no hallucinations, no dysarthia Results Labs Labs: Short CBC 07/14/25 Range/Units 11:18 WBC 2.0 L (4.5-10.0) K/mm3 Hgb 10.9 L (14.0-18.0) g/dL Hct 35.2 L (42.0-52.0) % Plt Count 280 (150-375) k/mm3 BMP 07/14/25 11:18 Sodium 135 L Potassium 4.3 Chloride 105 Carbon Dioxide 22 BUN 27 H Creatinine 0.68 L Glucose 139 H Calcium 9.0 Liver Function 07/14/25 Range/Units 11:18 Total Bilirubin 0.5 (0.2-1.3) mg/dL AST 28 (17-59) U/L ALT 19 (6-50) U/L Alkaline Phosphatase 101 (38-126) U/L Albumin 3.6 (3.5-5.1) g/dL Urine 07/14/25 Range/Units 12:31 Urine Color Yellow (Yellow) Urine Appearance Cloudy H (Clear) Urine pH 5.5 (5.0-9.0) Ur Specific Call 1.010 (1.001-1.035) Urine Protein Negative (Negative) mg/dL Urine Glucose (UA) 3+ H (Negative) mg/dL Quality VTE Prophylaxis VTE prophylaxis: mechanical ordered If No VTE Prophylaxis Answer both mechanical and pharmacologic: Reason no pharmacologic proph: medical contraindication Assessment and Plan Assessment and plan (1) Lower GI bleed: Code(s): K92.2 - Gastrointestinal hemorrhage, unspecified Status: Acute Assessment and Plan: GI consulted Plan for scope tomorrow Okay for diet now, NPO midnight Bowel prep per GI H&H q.6 (2) UTI (urinary tract infection): Code(s): N39.0 - Urinary tract infection, site not specified Status: Acute Assessment and Plan: IV Rocephin Culture and sensitivity pending (3) Pericardial effusion: Code(s): I31.39 - Other pericardial effusion (noninflammatory) Status: Acute Assessment and Plan: Small pericardial effusion. Echo pending (4) Acute blood loss anemia: Code(s): D62 - Acute posthemorrhagic anemia Status: Acute Assessment and Plan: Brilinta? ? Q.6 are H&H Transfuse for hemoglobin less than 7 or symptomatic No need for transfusion at this time Per cardiology Given patient had his stent placed almost 15 years ago, can stop Brilinta. Recommend continue aspirin 81 mg daily without interruption if possible. However if GI needs to stop aspirin acutely for a 1-2 days during evaluation and treatment of acute GI bleed, that will be okay as platelet half life is about 1 week. Do not hold aspirin for more than 1-2 days to avoid risk of stent thrombosis (5) CHF (congestive heart failure): Code(s): I50.9 - Heart failure, unspecified Status: Acute Assessment and Plan: Patient received 500 mils an ED Echocardiogram pending history of low EF Continue to monitor Currently holding Lasix due to soft blood pressures re-evaluate in a.m. (6) Opacity noted on imaging study: Code(s): R93.89 - Abnormal findings on diagnostic imaging of other specified body structures Status: Acute Assessment and Plan: Right midlung opacity on x-ray CT chest pending-non con due to patient getting a CTA of abdomen pelvis prior New 2.4 x 2.2 cm pleural-based right upper lobe mass, suspicious for bronchogenic carcinoma. With leukopenia Pulmonology consulted Patient told about findings (7) Hypertension: Code(s): I10 - Essential (primary) hypertension Status: Acute Assessment and Plan: Holding antihypertensives as blood pressure is also soft likely due to acute blood loss and dehydration (8) Type 2 diabetes mellitus: Code(s): E11.9 - Type 2 diabetes mellitus without complications Status: Acute Assessment and Plan: Medardo BROWN SSI Hold metformin (9) Coronary artery disease: Code(s): I25.10 - Atherosclerotic heart disease of [place] coronary artery without angina pectoris Status: Acute Assessment and Plan: ELISSA Hensley, no need to restart on discharge as it has been 15 years since his NC Okay to restart aspirin after scope Continue metoprolol, Entresto, empagliflozin if blood pressure allows Time Spent with Patient Time with patient: less than 45 minutes Hospitalist MIPS Advance Care Plan I have confirmed that the patient's Advanced Care Plan is present, code status is documented, or surrogate decision maker is listed in patient medical record.: Yes Medication Reconciliation I have utilized all available resources to obtain, update and review the patients current medications (includes all prescriptions, OTC, herbals, cannabis, and nutritional supplements).: Yes
[2025-07-14] MEDS: cefTRIAXone 1 GM in SODIUM CHLORIDE 0.9% IV 50 ML 100 ML IVPB (13:24)
[2025-07-14 13:39] LABS: INR 1.0; Prothrombin Time 13.2 Seconds (11.1-14.7)
[2025-07-14 13:40] LABS: Partial Thromboplastin Time 36.2 Seconds (22.3-36.8)
[2025-07-14] MEDS: LACTATED RINGERS 1,000 ML 500 ML IV CONT (13:59)
--- NOTE | 2025-07-14 14:02 | WPCEDHO ---
ED Hand Off Checklist All vitals saved: Yes IV Site documented:Yes All med administrations documented:Yes Triage Note Triage Note Pt to ED w/ reports of diarrhea w 07/14/25 11:22 / dark black stool. Pt states he has had approx 6 episodes of bloody diarrhea today. Reports abd discomfort and nausea, appetite changes. Denies vomiting . Afebrile. PMH of GI bleed. Pt takes a baby aspirin as well as Brilinta daily. Agree with assessment Allergies carvedilol Allergy (Unknown, Verified 07/07/25 09:35) unknown lisinopril Allergy (Unknown, Verified 07/07/25 09:35) Swelling varenicline Allergy (Unknown, Verified 07/07/25 09:35) unknown [id number]-ErC Reductase Inhibitor Adverse Reaction (Verified 07/07/25 09:35) Unknown Family History (Last Reviewed 07/07/25 @ 09:18 by Ian Jaeger MD) Other Acute myocardial infarction Breast cancer Active Medications including assessments/comments Sodium Chloride (Normal Saline Iv) 250 mls @ 30 mls/hr IV CONT .Q8H20M STA Stop: 07/14/25 19:55 Last Admin: 07/14/25 13:11 Dose: Not Given Documented By: SHAKIRA Non-Admin Reason: No Dose Required Lactated Ringer's (Lr - Lactated Ringers Iv) 1,000 mls @ 500 mls/hr IV CONT .Q2H STA Stop: 07/14/25 14:47 Last Admin: 07/14/25 13:59 Dose: 500 mls/hr Documented By: NIKA Infusion/Titration Document 07/14/25 13:59 NIKA (Rec: 07/14/25 13:59 NIKA [id number]) Intake IV Site Right Forearm Container Volume 1,000 Waste Amount 0 Dosing Infusion Rate 500 Cumulative Dose Not Applicable Increase/Decrease Started Elapsed Time Elapsed Time ( 0m minutes) Administered/Completed Medications Discontinued Medications Ceftriaxone Sodium 1 gm/ (Sodium Chloride) 50 mls @ 100 mls/hr IVPB ONCE STA Stop: 07/14/25 13:16 Last Infusion: 07/14/25 13:53 Dose: Infused Documented By: Admin: 07/14/25 13:24 Dose: 100 mls/hr Documented By: NIKA Ondansetron HCl (Ondansetron Inj 4 Mg/2 Ml Vial) 4 mg IV PUSH ONCE STA Stop: 07/14/25 12:11 Last Admin: 07/14/25 12:45 Dose: 4 mg Documented By: NIKA Pantoprazole Sodium (Pantoprazole Sodium Iv 40 Mg Vial) 40 mg IV PUSH ONCE STA Stop: 07/14/25 11:57 Last Admin: 07/14/25 12:48 Dose: 40 mg Documented By: NIKA Interventions/Assessments IV / Saline Lock, Insert Start: 07/14/25 10:17 Freq: Status: Active Protocol: Document 07/14/25 11:21 NIKA (Rec: 07/14/25 11:22 NIKA [id number]) IV Assessment Right Forearm IV Catheter Access Initiated IV Insertion Date 07/14/25 IV Insertion Time 11:20 Catheter Gauge 18 IV Insertion 1 Attempts Ultrasound Used for No Placement IV Site Assessment WNL IV Care and WNL Maintenance Last Vital Signs Temperature 97.7 F 07/14/25 10:24 Pulse Rate 86 07/14/25 13:35 Respiratory Rate 16 07/14/25 13:35 Pulse Oximetry 98 07/14/25 13:35 Blood Pressure 94/59 L 07/14/25 13:35 Blood Pressure Mean 70 07/14/25 13:35 Blood Pressure Position Supine 07/14/25 12:34 Oxygen Delivery Room Air 07/14/25 10:24 Weight 67 kg 07/14/25 10:24 Last Result - Abnormals Only WBC 2.0 K/mm3 (4.5-10.0) L 07/14/25 11:18 RBC 4.20 M/mm3 (4.6-6.20) L 07/14/25 11:18 Hgb 10.9 g/dL (14.0-18.0) L 07/14/25 11:18 Hct 35.2 % (42.0-52.0) L 07/14/25 11:18 MCHC 31.0 g/dl (32-36) L 07/14/25 11:18 RDW 17.6 % (11.5-14.5) H 07/14/25 11:18 Immature Gran % (Auto) 1.5 % (0-0.5) H 07/14/25 11:18 [place] % (Auto) 11.9 % (2.6-8.5) H 07/14/25 11:18 Baso % (Auto) 0.0 % (0.2-1.2) L 07/14/25 11:18 Lymph # (Auto) 0.72 K/mm3 (0.9-3.2) L 07/14/25 11:18 Absolute Neuts (auto) 1.0 K/mm3 (1.3-6.7) L 07/14/25 11:18 Sodium 135 mmol/L (137-145) L 07/14/25 11:18 BUN 27 mg/dL (9-20) H 07/14/25 11:18 Creatinine 0.68 mg/dL (0.7-1.3) L 07/14/25 11:18 Glucose 139 mg/dL (65-110) H 07/14/25 11:18 Urine Appearance Cloudy (Clear) H 07/14/25 12:31 Urine Glucose (UA) 3+ mg/dL (Negative) H 07/14/25 12:31 Ur Blood (Man) 2+ (Negative) H 07/14/25 12:31 Leukocyte Esterase Rfl 2+ BRYN/UL (Negative) H 07/14/25 12:31 Urine RBC 21-50 /hpf (0-2) H 07/14/25 12:31 Urine WBC 51-100 /hpf (0-3) H 07/14/25 12:31 Urine Bacteria 4+ /hpf H 07/14/25 12:31 Crossmatch See Detail 07/14/25 11:18 Most Recent Suicide Severity Rating Suicide Severity Rating NO RISK INDICATED 07/14/25 11:22
--- NOTE | 2025-07-14 14:59 | ADMGEN ---
This patient, Phill Monae, was admitted to IMU Room 204-01 at 1441. Patient/family oriented to hospital policies and general routines including ID bracelet, bed and alarms, visiting hours, pain management, procedures, bathroom and other care routines, personal items, smoking policy, room service/diet, and visiting hours. Information on how to activate the Rapid Response Team has been discussed. Patient/Family are encouraged to report perceived risks to care and to ask questions if they do not understand what they are told or what they should do.
[2025-07-14 15:18] LABS: Hematocrit 29.6 % (42.0-52.0); Hemoglobin 9.3 g/dL (14.0-18.0)
--- NOTE | 2025-07-14 15:24 | PM.CNCAR ---
Assessment and Plan Assessment and plan (1) Coronary artery disease: Code(s): I25.10 - Atherosclerotic heart disease of [place] coronary artery without angina pectoris Status: Acute (2) Congestive heart failure: Code(s): I50.9 - Heart failure, unspecified Status: Acute (3) Hypertension: Code(s): I10 - Essential (primary) hypertension Status: Acute (4) Rectal bleeding: Code(s): K62.5 - Hemorrhage of anus and rectum Status: Acute Plan Assessment: GI bleeding with dark blood per rectum CAD, [place] 15 years ago status post stent placement, last catheterization 5 years ago without any intervention, patient on dap with aspirin and Brilinta-no chest pain Chronic systolic heart failure with LVEF of 15% by echo in 11/2024-euvolemic by exam Hypertension-controlled History of peptic ulcer disease status post cauterization many years ago Type 2 diabetes mellitus Plan: GI consulted for further management of GI bleeding. Plan for scope tomorrow a.m. Given patient had his stent placed almost 15 years ago, can stop Brilinta. Recommend continue aspirin 81 mg daily without interruption if possible. However if GI needs to stop aspirin acutely for a 1-2 days during evaluation and treatment of acute GI bleed, that will be okay as platelet half life is about 1 week. Do not hold aspirin for more than 1-2 days to avoid risk of stent thrombosis TTE Continue guideline directed medical therapy with metoprolol, Entresto, empagliflozin if blood pressure allows Check and replace electrolytes to keep potassium greater than 4 and magnesium greater than 2 Monitor on telemetry P.r.n. EKG for any chest pain Management of other medical problems per primary team History of Present Illness History of Present Illness Consult date/time: 07/14/25 15:24 Reason For Visit: LGIB/UTI Narrative: 80-year-old male with history of coronary artery disease, [place] 15 years ago status post PCI on aspirin and Brilinta, congestive heart failure (on guideline directed medical therapy with metoprolol, Entresto, empagliflozin), hypertension, type 2 diabetes mellitus, peptic ulcer disease presents with chief complaints of bright red blood per rectum. Patient is accompanied by his history is obtained from both patient and his . Patient started having dark bloody stools since this morning. He has had 5-6 bowel movements so far all with dark blood. No nausea, emesis, abdominal pain, chest pain, dizziness, lightheadedness, shortness of breath, presyncope, syncope, orthopnea, PND, leg swelling, recent weight gain. Patient had a history of peptic ulcer which was cauterized in the past. Per patient's , patient's last catheterization was about 4 years ago. He was told there was a blockage distal to the initial stent but was not reachable for intervention and since then he has been on medical management. He is compliant with his medications. Workup: Hemoglobin: 10.9, 9.3 (hemoglobin was 12.5 in 06/2025) Creatinine: 0.68 Chest x-ray: Right mid lung opacity CT abdomen pelvis: No evidence of active GI bleed Prior cardiac workup: TTE 11/2024: Severely depressed LV ejection fraction of 15%, moderate aortic sclerosis. Review of Systems Review of Systems: A complete review of systems was performed and pertinent positives are reported in the HPI. [facility] Past Medical History Medical History Weakness Hypertension Type 2 diabetes mellitus Peptic ulcer Congestive heart failure Coronary artery disease Effusion of knee joint Left knee DJD Right knee DJD Upper respiratory tract infection Tendinitis of right rotator cuff Primary osteoarthritis of right shoulder Impingement syndrome of right shoulder Chronic right shoulder pain Myocardial infarction Rotator cuff tear arthropathy of right shoulder Lumbosacral spondylosis with radiculopathy Surgical History Surgical History History of coronary artery stent placement Family History Family History (Updated 07/14/25 @ 15:38 by Becca Umanzor RN) Father Acute myocardial infarction Mother Breast cancer Social History Social History Social History: Surrogate medical decision maker: Alana Hdezor, friend. Code status: Full code. Smoking packs per day: 0.25 Smoking cigarettes per day: 5.0 Years smoked: 60 Smoking pack-years: 15.00 Smoking status: Current every day smoker Tobacco type: cigarettes Second hand tobacco smoke exposure: Yes Alcohol intake: never Substance use: current Substance use type: marijuana Last use: 12/07/24 Lack of Transportation: No Lack of Food: Never True Current Housing: I Have Housing Concerned About Future Housing: No Difficulty Paying Gas/Electric Bills: No Difficulty Paying for Meds: No Currently Unemployed: No Education: High School Diploma/GED Difficulty w/ Childcare or Family Care: No Living arrangements: alone Additional living arrangements comments: Lives in [place]. Occupation/Education: retired Additional occupation/education comments: [employer]. Spiritual care concerns: No Agree to blood products: Yes Meds Home Medications and Allergies Home Medications ?Medication ?Instructions ?Recorded ?Confirmed ?Type aspirin 81 mg tablet,delayed 81 mg PO DAILY 11/29/21 07/07/25 History release latanoprost 0.005 % eye drops 1 drp EACH EYE QPM 11/29/21 07/07/25 History nitroglycerin 0.4 mg sublingual 0.4 mg sublingual Q5M PRN Chest 11/29/21 07/07/25 History tablet Pain potassium chloride 20 mEq 20 meq PO DAILY 11/29/21 07/07/25 History tablet,extended release ticagrelor 60 mg tablet (Brilinta) 60 mg PO Q12H 11/29/21 07/07/25 History sacubitril 24 mg-valsartan 26 mg 1 tablet PO BID 09/04/22 07/07/25 History tablet (Entresto) pantoprazole 40 mg tablet,delayed 40 mg PO BID #60 tabs 06/11/24 07/07/25 Rx release empagliflozin 10 mg tablet 10 mg PO DAILY #30 tabs 12/11/24 07/07/25 Rx (Jardiance) ferrous sulfate 325 mg (65 mg 325 mg PO BID #60 tabs 12/11/24 07/07/25 Rx iron) tablet,delayed release blood sugar diagnostic (OneTouch 06/28/25 07/07/25 History Ultra Test strips) fluticasone 250 mcg-salmeterol 50 1 inh inhalation BID 06/28/25 07/07/25 History mcg/dose blistr powdr for inhalation (Advair Diskus) glucosamine [id number] 1 tablet PO DAILY 06/28/25 07/07/25 History elise 1,500 mg-400 unit-100 mg tablet loratadine 10 mg tablet (Claritin) 10 mg PO DAILY 06/28/25 07/07/25 History oxycodone-acetaminophen 5 mg-325 1 tablet PO Q6H PRN pain #30 tabs 06/28/25 07/07/25 Rx mg tablet (Percocet) tamsulosin 0.4 mg capsule 0.4 mg PO DAILY 06/28/25 07/07/25 History cyanocobalamin (vitamin B-12) 50 50 mcg PO DAILY 07/01/25 07/07/25 History mcg tablet (Vitamin B-12) evolocumab 140 mg/mL subcutaneous See Rx Instructions .Route .COMPLEX 07/01/25 07/07/25 History syringe (Repatha Syringe) metformin 500 mg tablet See Rx Instructions .Route .COMPLEX 07/01/25 07/07/25 History metoprolol succinate 25 mg 25 mg PO DAILY 07/01/25 07/07/25 History tablet,extended release 24 hr albuterol sulfate 90 mcg/actuation See Rx Instructions .Route 07/07/25 Rx aerosol inhaler .COMPLEX #25.5 ea furosemide 40 mg tablet See Rx Instructions .Route 07/07/25 Rx .COMPLEX #180 tabs Allergies Allergy/AdvReac Type Severity Reaction Status Date / Time carvedilol Allergy Severe rash Verified 07/14/25 15:34 swelling lisinopril Allergy Unknown Swelling Verified 07/14/25 15:34 anaphylaxis varenicline Allergy Unknown unknown Verified 07/14/25 15:34 [id number]-GHJ-UdH Reductase AdvReac rash Verified 07/14/25 15:34 Inhibitor swelling Vital Signs Vital Signs - 24 hr 07/14/25 10:24 07/14/25 11:32 07/14/25 12:34 Temperature 36.5 C Pulse Rate 104 H 80 80 Respiratory Rate 20 18 18 Blood Pressure 108/56 L 88/57 L 119/69 Pulse Oximetry 100 99 100 Oxygen Delivery Room Air 07/14/25 13:35 07/14/25 14:03 07/14/25 14:41 Temperature 36.7 C Pulse Rate 86 89 84 Respiratory Rate 16 18 22 H Blood Pressure 94/59 L 105/51 L 109/87 Pulse Oximetry 98 97 97 Oxygen Delivery Exam Narrative: General: Alert oriented x3, no acute distress Neck: Supple, no JVD Chest: Bilaterally clear to auscultation, no rales or rhonchi Cardiac: S1, S2 +, regular rate, regular rhythm, no murmurs or rubs Extremities: No pedal edema, no skin rash Neurologic: Alert and oriented x3, no focal neurological deficits Results Labs and Meds 07/14/25 15:11 07/14/25 11:18 Lab results: Cardiac Enzymes 07/14/25 Range/Units 11:18 AST 28 (17-59) U/L Coagulation 07/14/25 Range/Units 11:17 PT 13.2 (11.1-14.7) Seconds APTT 36.2 (22.3-36.8) Seconds CBC 07/14/25 07/14/25 Range/Units 11:18 15:11 WBC 2.0 L (4.5-10.0) K/mm3 RBC 4.20 L (4.6-6.20) M/mm3 Hgb 10.9 L 9.3 L (14.0-18.0) g/dL Hct 35.2 L 29.6 L (42.0-52.0) % Plt Count 280 (150-375) k/mm3 Lymph # (Auto) 0.72 L (0.9-3.2) K/mm3 [place] # (Auto) 0.2 (0.1-0.6) K/mm3 Eos # (Auto) 0.0 (0-0.3) K/mm3 Baso # (Auto) 0.0 (0.0-0.1) K/mm3 Comprehensive Metabolic Panel 07/14/25 Range/Units 11:18 Sodium 135 L (137-145) mmol/L Potassium 4.3 (3.4-5.0) mmol/L Chloride 105 (98-107) mmol/L Carbon Dioxide 22 (22-30) mmol/L BUN 27 H (9-20) mg/dL Creatinine 0.68 L (0.7-1.3) mg/dL Glucose 139 H (65-110) mg/dL Calcium 9.0 (8.4-10.2) mg/dL AST 28 (17-59) U/L ALT 19 (6-50) U/L Alkaline Phosphatase 101 (38-126) U/L Total Protein 7.6 (6.3-8.2) g/dL Albumin 3.6 (3.5-5.1) g/dL Intake and Output 07/13/25 07/14/25 07/14/25 23:59 07:59 15:59 Intake Total 50 Balance 50 Intake: IV 50 cefTRIAXone 1 gm In Sodium 50 Chloride 0.9% IV 50 ml @ 100 mls/hr IVPB ONCE STA Rx#: [id number] Patient Weight 07/14/25 23:59 Weight 65 kg
--- NOTE | 2025-07-14 15:50 | WPDGICN ---
Assessment and Plan Assessment and plan (1) Lower GI bleed: Code(s): K92.2 - Gastrointestinal hemorrhage, unspecified Status: Acute Assessment and Plan: The patient is presenting with acute lower GI bleeding, and the differential diagnosis includes diverticular bleeding, angiodysplasia, colorectal neoplasia, and ischemic colitis as the main ones. . Prep for colonoscopy is indicated; however, due to the patient's underlying severe cardiac history, cardiac clearance is mandatory. This clearance should ideally include a recent echocardiogram and specific recommendations from Cardiology regarding anesthetic management for the anticipated brief endoscopic procedure. GI Consult Note Consult date/time: 07/14/25 15:50 Reason for consult: Rectal bleeding HPI: Phill Monae is an 80-year-old male admitted today due to multiple episodes of bright red blood per rectum since 4:00 a.m. His relevant medical history includes CAD status post stent placement, currently requiring anti-aggregate therapy with Brilinta. Of critical note is his history of severe CHF, with an ejection fraction of 15% documented in November of this year, in addition to aortic valve sclerosis. He denies abdominal pain, but presented to the Emergency Room with hypotension requiring immediate fluid boluses for stabilization. The patient's prior colonoscopy, performed many years ago at an outside facility, has results unavailable . . Review of Systems Review of Systems: All systems reviewed & are unremarkable except as noted in HPI and below PMFSH Past Medical History Medical History Weakness Hypertension Type 2 diabetes mellitus Peptic ulcer Congestive heart failure Coronary artery disease Effusion of knee joint Left knee DJD Right knee DJD Upper respiratory tract infection Tendinitis of right rotator cuff Primary osteoarthritis of right shoulder Impingement syndrome of right shoulder Chronic right shoulder pain Myocardial infarction Rotator cuff tear arthropathy of right shoulder Lumbosacral spondylosis with radiculopathy Surgical History Surgical History History of coronary artery stent placement Family History Family History (Updated 07/14/25 @ 15:38 by Becca Umanzor RN) Father Acute myocardial infarction Mother Breast cancer Social History Social History Social History: Surrogate medical decision maker: Alana Renee, friend. Code status: Full code. Smoking packs per day: 0.25 Smoking cigarettes per day: 5.0 Years smoked: 60 Smoking pack-years: 15.00 Smoking status: Former smoker Tobacco type: cigarettes Second hand tobacco smoke exposure: No Alcohol intake: never Substance use: current Substance use type: marijuana Last use: 12/07/24 Lack of Transportation: No Lack of Food: Never True Current Housing: I Have Housing Concerned About Future Housing: No Difficulty Paying Gas/Electric Bills: No Difficulty Paying for Meds: No Currently Unemployed: No Education: High School Diploma/GED Difficulty w/ Childcare or Family Care: No Living arrangements: alone Additional living arrangements comments: Lives in [place]. Occupation/Education: retired Additional occupation/education comments: [employer]. Spiritual care concerns: No Agree to blood products: Yes Meds Home Medications and Allergies Home Medications ?Medication ?Instructions ?Recorded ?Confirmed ?Type aspirin 81 mg tablet,delayed 81 mg PO DAILY 11/29/21 07/07/25 History release latanoprost 0.005 % eye drops 1 drp EACH EYE QPM 11/29/21 07/07/25 History nitroglycerin 0.4 mg sublingual 0.4 mg sublingual Q5M PRN Chest 11/29/21 07/07/25 History tablet Pain potassium chloride 20 mEq 20 meq PO DAILY 11/29/21 07/07/25 History tablet,extended release ticagrelor 60 mg tablet (Brilinta) 60 mg PO Q12H 11/29/21 07/07/25 History sacubitril 24 mg-valsartan 26 mg 1 tablet PO BID 09/04/22 07/07/25 History tablet (Entresto) pantoprazole 40 mg tablet,delayed 40 mg PO BID #60 tabs 06/11/24 07/07/25 Rx release empagliflozin 10 mg tablet 10 mg PO DAILY #30 tabs 12/11/24 07/07/25 Rx (Jardiance) ferrous sulfate 325 mg (65 mg 325 mg PO BID #60 tabs 12/11/24 07/07/25 Rx iron) tablet,delayed release blood sugar diagnostic (OneTouch 06/28/25 07/07/25 History Ultra Test strips) fluticasone 250 mcg-salmeterol 50 1 inh inhalation BID 06/28/25 07/07/25 History mcg/dose blistr powdr for inhalation (Advair Diskus) glucosamine [id number] 1 tablet PO DAILY 06/28/25 07/07/25 History elise 1,500 mg-400 unit-100 mg tablet loratadine 10 mg tablet (Claritin) 10 mg PO DAILY 06/28/25 07/07/25 History oxycodone-acetaminophen 5 mg-325 1 tablet PO Q6H PRN pain #30 tabs 06/28/25 07/07/25 Rx mg tablet (Percocet) tamsulosin 0.4 mg capsule 0.4 mg PO DAILY 06/28/25 07/07/25 History cyanocobalamin (vitamin B-12) 50 50 mcg PO DAILY 07/01/25 07/07/25 History mcg tablet (Vitamin B-12) evolocumab 140 mg/mL subcutaneous See Rx Instructions .Route .COMPLEX 07/01/25 07/07/25 History syringe (Repatha Syringe) metformin 500 mg tablet See Rx Instructions .Route .COMPLEX 07/01/25 07/07/25 History metoprolol succinate 25 mg 25 mg PO DAILY 07/01/25 07/07/25 History tablet,extended release 24 hr albuterol sulfate 90 mcg/actuation See Rx Instructions .Route 07/07/25 Rx aerosol inhaler .COMPLEX #25.5 ea furosemide 40 mg tablet See Rx Instructions .Route 07/07/25 Rx .COMPLEX #180 tabs Allergies Allergy/AdvReac Type Severity Reaction Status Date / Time carvedilol Allergy Severe rash Verified 07/14/25 15:34 swelling lisinopril Allergy Unknown Swelling Verified 07/14/25 15:34 anaphylaxis varenicline Allergy Unknown unknown Verified 07/14/25 15:34 Gjsmeib-UYA-FcZ Reductase AdvReac rash Verified 07/14/25 15:34 Inhibitor swelling Vital Signs Vital Signs - 24 hr 07/14/25 10:24 07/14/25 11:32 07/14/25 12:34 Temperature 97.7 F Pulse Rate 104 H 80 80 Respiratory Rate 20 18 18 Blood Pressure 108/56 L 88/57 L 119/69 Pulse Oximetry 100 99 100 Oxygen Delivery Room Air 07/14/25 13:35 07/14/25 14:03 07/14/25 14:41 Temperature 98.1 F Pulse Rate 86 89 84 Respiratory Rate 16 18 22 H Blood Pressure 94/59 L 105/51 L 109/87 Pulse Oximetry 98 97 97 Oxygen Delivery Exam Const: General: cooperative and healthy appearing Resp: Effort & Inspection: normal respiratory effort and able to speak in complete sentences Auscultation: clear to auscultation bilaterally Cardio: Rate: regular rate Rhythm: regular rhythm GI: Inspection: normal to inspection GI Palp: No No hepatosplenomegaly present Auscultation: normal bowel sounds Rectal Exam: deferred Skin: General skin exam: normal color Psych: Appearance: grossly normal Mental Status: mental status grossly normal Results Labs 07/14/25 15:11 07/14/25 11:18 Labs: Short CBC 07/14/25 07/14/25 Range/Units 11:18 15:11 WBC 2.0 L (4.5-10.0) K/mm3 Hgb 10.9 L 9.3 L (14.0-18.0) g/dL Hct 35.2 L 29.6 L (42.0-52.0) % Plt Count 280 (150-375) k/mm3 [facility] 07/14/25 11:18 Sodium 135 L Potassium 4.3 Chloride 105 Carbon Dioxide 22 BUN 27 H Creatinine 0.68 L Glucose 139 H Calcium 9.0 Liver Function 07/14/25 Range/Units 11:18 Total Bilirubin 0.5 (0.2-1.3) mg/dL AST 28 (17-59) U/L ALT 19 (6-50) U/L Alkaline Phosphatase 101 (38-126) U/L Albumin 3.6 (3.5-5.1) g/dL Urine 07/14/25 Range/Units 12:31 Urine Color Yellow (Yellow) Urine Appearance Cloudy H (Clear) Urine pH 5.5 (5.0-9.0) Ur Specific [place] 1.010 (1.001-1.035) Urine Protein Negative (Negative) mg/dL Urine Glucose (UA) 3+ H (Negative) mg/dL
[2025-07-14 19:29] LABS: Toxigenic C. Diff NEGATIVE (NEGATIVE)
[2025-07-14 20:17] LABS: Hematocrit 27.7 % (42.0-52.0); Hemoglobin 8.5 g/dL (14.0-18.0)
[2025-07-14] MEDS: METOPROLOL SUCCINATE EXT REL 25 MG TABCR PO (20:35)
[2025-07-14] MEDS: LATANOPROST 0.005% OP SOLN 2.5 ML BTL 1 DROP EACH EYE (20:37)
[2025-07-14] MEDS: FLUTICASONE/SALMETEROL 115-21 MCG INHALER 1 PUFF 2 PUFF INHALATION (22:10)
[2025-07-15] VITALS (26 sets, daily range): BP systolic 81–125; BP diastolic 40–69; PULSE 51–95; RESP 15–26; TEMP 36.2–37.5; O2SAT 95–100
--- NOTE | 2025-07-15 | ECHO_ITS ---
Patient Info Name: Phill Monae Age: 80 years : 1945 Gender: Male Ht: 71 in Wt: 143 lbs BSA: 1.79 m2 HR: 85 bpm BP: 117 / 63 mmHg Technical Quality: Good Exam Date: 07/15/2025 10:42 AM Patient Status: I Admit Date: 07/14/2025 Exam Type: CA echo dop color flow w con Complete two-dimensional, color flow and Doppler transthoracic echocardiogram is performed with contrast to opacify the left ventricle and to improve the deliniation of the left ventricle endocardial borders. Staff Referring Physician: Elza Carter Oral Hygienist: Tamika Yoo Attending Provider: Meghna Zuluaga MD Contrast/Agitated Saline Contrast/Ag. Saline: Definity Amount: 2.00 ml Summary 1. The left ventricle is mildly dilated with severely reduced systolic function. There is mild eccentric left ventricular hypertrophy. The left ventricular ejection fraction is visually estimated to be 25-30%. The inferoseptum is thinned and akinetic. The remaining vang are mildly hypokinetic. 2. The right ventricle is normal size and systolic function. 3. There are no significant valvular abnormalities. Left Ventricle The left ventricle is mildly dilated with severely reduced systolic function. There is mild eccentric left ventricular hypertrophy. The left ventricular ejection fraction is visually estimated to be 25-30%. The inferoseptum is thinned and akinetic. The remaining vang are mildly hypokinetic. Right Ventricle The right ventricle is normal size and systolic function. Left Atria The left atrium is normal size. Right Atria The right atrium is normal size. Atrial Septum The atrial septum is not well assessed. Aortic Valve There is no aortic stenosis. There is no aortic regurgitation. Pulmonic Valve The pulmonic valve is not well visualized. Mitral Valve The mitral valve leaflets are sclerotic. There is mild mitral regurgitation. Tricuspid Valve The tricuspid valve is normal. There is trace tricuspid regurgitation. Pericardium/Pleural Pericardium is normal in appearance with no evidence for significant pericardial effusion. Inferior Vena Cava Normal inferior vena cava with <50% collapse upon inspiration consistent with elevated right atrial pressure, 8 mmHg. Aorta The aortic root at the level of the sinus of Valsalva measures 3.6 cm in diameter. Left Ventricular Outflow Tract Name Value Normal LVOT 2D LVOT Diameter 2.0 cm LVOT Doppler LVOT Peak Velocity 118 cm/s LVOT Peak Gradient 6 mmHg LVOT Mean Gradient 3 mmHg LVOT VTI 19 cm LVOT Stroke Volume 59 ml LVOT CO 5.0 l/min LVOT CI 2.8 l/min/m2 Pulmonic Valve Name Value Normal RVOT Doppler RVOT Peak Velocity 75 cm/s RVOT Peak Gradient 2 mmHg PV Doppler PV Peak Velocity 81 cm/s PV Peak Gradient 3 mmHg Mitral Valve Name Value Normal MV Diastolic Function MV E Peak Velocity 45 cm/s MV A Peak Velocity 113 cm/s MV E/A 0.4 MV Decel Time (PW) 352 ms MV Annular TDI MV E/e' (Septal) 15.3 MV E/e' (Lateral) 14.0 MV E/e' (Average) 14.7 Tricuspid Valve Name Value Normal TV Regurgitation Doppler TR Peak Velocity 316 cm/s TR Peak Gradient 40 mmHg Estimated PAP/RSVP RA Pressure 8 mmHg <=5 PA Systolic Pressure 48 mmHg <36 RV Systolic Pressure 48 mmHg <36 Aortic Valve Name Value Normal AV Doppler AV Peak Velocity 162 cm/s AV Peak Gradient 11 mmHg AV Area (Cont Eq Dickson) 2.3 cm2 AV DI (Dickson) 0.73 AV Regurgitation 2D LVOT Area 3.2 cm2 Ventricles Name Value Normal LV Dimensions 2D/MM IVS Diastolic Thickness (2D) 1.0 cm 0.6-1.0 LVID Diastole (2D) 5.8 cm 4.2-5.8 LVIW Diastolic Thickness (2D) 0.9 cm 0.6-1.0 LVID Systole (2D) 5.1 cm 2.5-4.0 LVOT Diameter 2.0 cm LV Mass (2D Cubed) 215.87 g 88.00-224.00 LV Mass Index (2D Cubed) 120 g/m2 49-115 Relative Wall Thickness (2D) 0.31 <=0.42 LV Fractional Shortening/Ejection Fraction 2D/MM LV Fractional Shortening (2D) 11 % 25-43 LV EF (2D Teichholz) 24 % LV Diastolic Volume (4C MOD) 291 ml LV EF (4C MOD) 33 % LV Diastolic Volume (2C MOD) 279 ml LV EF (2C MOD) 18 % LV Diastolic Volume (BP MOD) 292 ml 62-150 LV Diastolic Volume Index (BP MOD) 163 ml/m2 34-74 LV Systolic Volume (BP MOD) 212 ml 21-61 LV Systolic Volume Index (BP MOD) 118 ml/m2 11-31 LV EF (BP MOD) 27 % 52-72 LV Diastolic Length (4C) 10.1 cm LV Systolic Length (4C) 10.1 cm LV Stroke Volume (4C MOD) 95 ml Atria Name Value Normal LA Dimensions LA Volume (4C A-L) 54 ml LA Volume (BP A-L) 57 ml RA Dimensions RA Systolic Major Wallace Length (4C) 5.6 cm 2.1-2.7 RA Area (4C) 19.7 cm2 <=18.0 Report Signatures
[2025-07-15] MEDS: TUBING, BLOOD PLUM PUMP TUBING 1 EACH XX (01:31)
[2025-07-15] MEDS: SODIUM CHLORIDE 0.9% IV 250 ML 30 ML IV CONT (01:31)
--- NOTE | 2025-07-15 01:32 | ECG_ITS ---
Test Date: 2025-07-15 02:11:35 Measurements Intervals [place] Rate: 74 P: 31 NC: 177 QRS: -54 QRSD: 149 T: 148 QT: 395 QTc: 440 Interpretive Statements SINUS RHYTHM WITH OCCASIONAL VENTRICULAR PREMATURE COMPLEXES WITH FREQUENT SUPRAVENTRICULAR PREMATURE COMPLEXES LEFT AXIS DEVIATION INTRAVENTRICULAR CONDUCTION DELAY CANNOT R/O SEPTAL INFARCT, AGE INDETERMINATE BORDERLINE ST-T WAVE ABNORMALITY- LAT/HIGH LAT LEADS ABNORMAL ECG Compared to ECG 12/08/2024 09:45:17 NO SIGNIFICANT CHANGE Electronically Signed On 07-15-2025 06:11:02 [employer] by Uche Vidal D.O.
[2025-07-15 01:55] LABS: Hematocrit 26.1 % (42.0-52.0); Hemoglobin 8.1 g/dL (14.0-18.0)
--- NOTE | 2025-07-15 07:51 | P.PNGI_ITS ---
Progress Note: A&P Assessment and Plan (1) Rectal bleeding: Code(s): K62.5 - Hemorrhage of anus and rectum Status: Acute Assessment and Plan: The patient has hematochezia and is not hemodynamically stable. In this scenario, we will consider upper GI sources as possibilities included in our differential diagnosis, such as peptic ulcer disease bleeding. Therefore, even though he is prepared for colonoscopy, will start with an EGD. Discussed with nursing staff, who will in turn discussed with hospitalist to consider ICU transfer while waiting for EGD and possible colonoscopy. Subjective Date/time seen: 07/15/25 07:51 Interval history: The patient has remained hemodynamically unstable throughout the night, with systolic blood pressures around 80 mmHg requiring fluid boluses. Exam Const: General: cooperative and healthy appearing Resp: Effort & Inspection: normal respiratory effort and able to speak in complete sentences Auscultation: clear to auscultation bilaterally Cardio: Rate: regular rate Rhythm: regular rhythm GI: Inspection: normal to inspection GI Palp: No No hepatosplenomegaly present Auscultation: normal bowel sounds Rectal Exam: deferred Skin: General skin exam: normal color Psych: Appearance: grossly normal Mental Status: mental status grossly normal Objective Data Vital Signs Vital Signs: Vital Signs - 24 hr 07/14/25 10:24 07/14/25 11:32 07/14/25 12:34 Temperature 97.7 F Pulse Rate 104 H 80 80 Respiratory Rate 20 18 18 Blood Pressure 108/56 L 88/57 L 119/69 Pulse Oximetry 100 99 100 Oxygen Delivery Room Air 07/14/25 13:35 07/14/25 14:03 07/14/25 14:41 Temperature 98.1 F Pulse Rate 86 89 84 Respiratory Rate 16 18 22 H Blood Pressure 94/59 L 105/51 L 109/87 Pulse Oximetry 98 97 97 Oxygen Delivery 07/14/25 16:00 07/14/25 16:00 07/14/25 18:00 Temperature 97.6 F Pulse Rate 83 79 85 Respiratory Rate 16 Blood Pressure 106/83 Pulse Oximetry 99 Oxygen Delivery 07/14/25 20:00 07/14/25 20:00 07/14/25 20:35 Temperature 97.4 F L Pulse Rate 83 80 87 Respiratory Rate 16 Blood Pressure 125/95 H Pulse Oximetry 97 Oxygen Delivery 07/14/25 22:00 07/14/25 22:36 07/14/25 22:36 Temperature Pulse Rate 78 88 88 Respiratory Rate 16 16 Blood Pressure Pulse Oximetry 95 Oxygen Delivery Room Air 07/15/25 00:00 07/15/25 00:00 07/15/25 02:00 Temperature 98 F Pulse Rate 81 72 68 Respiratory Rate 16 Blood Pressure 81/47 L Pulse Oximetry 99 Oxygen Delivery 07/15/25 02:43 07/15/25 03:00 07/15/25 03:34 Temperature 97.6 F 97.6 F 97.1 F L Pulse Rate 79 76 71 Respiratory Rate 20 20 16 Blood Pressure 97/44 L 97/58 L 91/45 L Pulse Oximetry 100 98 99 Oxygen Delivery 07/15/25 04:00 07/15/25 04:00 07/15/25 05:00 Temperature 97.1 F L 97.5 F L Pulse Rate 78 71 82 Respiratory Rate 18 18 Blood Pressure 96/62 L 98/53 L Pulse Oximetry 95 Oxygen Delivery 07/15/25 05:04 07/15/25 06:00 07/15/25 06:03 Temperature 97.9 F 97.8 F Pulse Rate 72 68 80 Respiratory Rate 16 18 Blood Pressure 96/40 L 117/63 Pulse Oximetry 97 98 Oxygen Delivery Intake/Output Intake/Output: Intake & Output 07/12/25 07/13/25 07/14/25 07/15/25 23:59 23:59 23:59 23:59 Intake Total 1290 350 Output Total 600 400 Balance 690 -50 Meds/Results Medications: Active Medications Generic Name Dose Route Start Last Admin Trade Name Freq PRN Reason Stop Dose Admin Acetaminophen 650 mg 07/14/25 13:19 Acetaminophen 325 Mg Tablet PO Q4H PRN Mild Pain (1-3) or Fever Albuterol 2 puff 07/14/25 19:25 Albuterol Sulfate (*Sp) Aerosol 1 Puff INHALATION Q4HRT PRN WHEEZE/SOB Dextrose 12.5 gm 07/14/25 13:19 Dextrose 50% 25 Gm/50 Ml Syringe IV PUSH PRN PRN Hypoglycemia Protocol Empagliflozin 10 mg 07/15/25 09:00 Empagliflozin 10 Mg Tablet PO DAILY [facility] Ferrous Sulfate 325 mg 07/15/25 09:00 Ferrous Sulfate 325 Mg Tablet PO TID [facility] Glucagon 1 mg 07/14/25 13:19 Glucagon For Inj 1 Mg Vial IM PRN PRN Hypoglycemia Protocol Glucose 15 gm 07/14/25 13:19 Glucose Oral Gel 15 Gm Of Glucse In 37.5 Gm Tube PO PRN PRN Hypoglycemia Protocol Dextrose 1,000 mls @ 100 mls/hr 07/14/25 13:19 Dextrose 5% 1,000 Ml IVPB PRN PRN Hypoglycemia Protocol Ceftriaxone Sodium 1 gm/ 50 mls @ 100 mls/hr 07/15/25 14:00 Sodium Chloride IVPB Q24H [facility] Sodium Chloride 250 mls @ 30 mls/hr 07/15/25 00:23 07/15/25 01:31 Normal Saline Iv IV CONT 07/15/25 08:42 30 mls/hr .Q8H20M STA Administration Insulin Aspart 2 - 5 units 07/14/25 17:00 07/14/25 18:05 Insulin Aspart (*Bkc) 100 Units/Ml SUB-Q Not Given TIDWM [facility] Protocol Latanoprost 1 drop 07/14/25 21:00 07/14/25 20:37 Latanoprost 0.005% Op Soln 2.5 Ml Btl EACH EYE 1 drop HS [facility] Administration Metoprolol Succinate 25 mg 07/14/25 21:00 07/14/25 20:35 Metoprolol Succinate Ext Rel 25 Mg Tabcr PO 25 mg HS [facility] Administration Nitroglycerin 0.4 mg 07/14/25 19:24 Nitroglycerin Sl 0.4 Mg Tablet SUBLINGUAL Q5M PRN Chest Pain Ondansetron HCl 4 mg 07/14/25 13:11 07/14/25 22:34 Ondansetron Inj 4 Mg/2 Ml Vial IV PUSH 4 mg Q4H PRN Administration Nausea Oxycodone/Acetaminophen 1 tablet 07/14/25 19:24 Oxycodone/Acetaminophen (*Crx) 5-325 Mg Tablet PO Q6H PRN Pain Rated 6 or Greater Pantoprazole Sodium 40 mg 07/15/25 09:00 Pantoprazole 40 Mg Tablet PO Q12HR [facility] Perflutren Lipid Microsphere 0 ml 07/14/25 15:37 Perflutren Lipid Microspheres 1.5 Ml Vial Diluted To 10 Ml Total Volume IV PUSH 07/17/25 15:38 ONCE PRN adequate visualization Protocol Sacubitril/Valsartan 1 tab 07/15/25 09:00 Sacubitril/Valsartan 24-26 Mg Tablet PO Q12HR [facility] Fluticasone/Salmeterol 2 puff 07/14/25 20:00 07/14/25 22:10 Fluticasone/Salmeterol 115-21 Mcg Inhaler 1 Puff INHALATION 2 puff Q12HRT [facility] Administration Tamsulosin HCl 0.4 mg 07/15/25 09:00 Tamsulosin Hcl 0.4 Mg Capsule PO DAILY [facility] Radiology Results: ITS Impressions Abdomen/Pelvis CTA 07/14/25 12:36 IMPRESSION: 1. No evidence of active GI bleed or other acute abnormality. Chest X-Ray 07/14/25 13:21 IMPRESSION: 1. Recommend CT chest to better evaluate right midlung opacity. Chest CT 07/14/25 17:50 IMPRESSION: 1. New 2.4 x 2.2 cm pleural-based right upper lobe mass, suspicious for bronchogenic carcinoma. 2: Hiatal hernia with fluid and debris in the esophagus which is mildly thickened, suspicious for esophagitis secondary to reflux. 3: Small pericardial effusion. Labs Labs: Laboratory Results - last 24 hr 07/14/25 07/14/25 07/14/25 11:17 11:18 12:31 WBC 2.0 L RBC 4.20 L Hgb 10.9 L Hct 35.2 L MCV 83.8 MCH 26.0 MCHC 31.0 L RDW 17.6 H Plt Count 280 MPV 9.2 Immature Gran % (Auto) 1.5 H Neut % (Auto) 49.3 Lymph % (Auto) 35.8 [place] % (Auto) 11.9 H Eos % (Auto) 1.5 Baso % (Auto) 0.0 L Lymph # (Auto) 0.72 L [place] # (Auto) 0.2 Eos # (Auto) 0.0 Baso # (Auto) 0.0 Abs Immat Gran (auto) 0.03 Absolute Neuts (auto) 1.0 L Absolute Nucleated RBC 0.000 Band Neutrophils % Not Reportable Nucleated RBC % 0.0 Atypical Lymphocytes Present Platelet Estimate Adequate Hypochromasia 1+ Anisocytosis 2+ Schistocytes None seen PT 13.2 INR 1.0 APTT 36.2 Sodium 135 L Potassium 4.3 Chloride 105 Carbon Dioxide 22 Anion Gap 8 BUN 27 H Creatinine 0.68 L Estim Creat Clear Calc 68 Estimated GFR > 60 Glucose 139 H POC Capillary Glucose Calcium 9.0 Total Bilirubin 0.5 AST 28 ALT 19 Alkaline Phosphatase 101 Total Protein 7.6 Albumin 3.6 Lipase 95 Urine Color Yellow Urine Appearance Cloudy H Urine pH 5.5 Ur Specific [place] 1.010 Urine Protein Negative Urine Glucose (UA) 3+ H Urine Ketones Negative Ur Blood (Man) 2+ H Urine Nitrate Negative Urine Bilirubin Negative Urine Urobilinogen 0.2 Leukocyte Esterase Rfl 2+ H Urine RBC 21-50 H Urine WBC 51-100 H Ur Squamous Epith Cells None seen Urine Bacteria 4+ H Urine Casts 3-5 C. difficile (PCR) Blood Type A Positive Antibody Screen Negative Crossmatch See Detail 07/14/25 07/14/25 07/14/25 15:11 16:10 18:20 WBC RBC Hgb 9.3 L Hct 29.6 L MCV MCH MCHC RDW Plt Count MPV Immature Gran % (Auto) Neut % (Auto) Lymph % (Auto) [place] % (Auto) Eos % (Auto) Baso % (Auto) Lymph # (Auto) [place] # (Auto) Eos # (Auto) Baso # (Auto) Abs Immat Gran (auto) Absolute Neuts (auto) Absolute Nucleated RBC Band Neutrophils % Nucleated RBC % Atypical Lymphocytes Platelet Estimate Hypochromasia Anisocytosis Schistocytes PT INR APTT Sodium Potassium Chloride Carbon Dioxide Anion Gap BUN Creatinine Estim Creat Clear Calc Estimated GFR Glucose POC Capillary Glucose 134 H Calcium Total Bilirubin AST ALT Alkaline Phosphatase Total Protein Albumin Lipase Urine Color Urine Appearance Urine pH Ur Specific [place] Urine Protein Urine Glucose (UA) Urine Ketones Ur Blood (Man) Urine Nitrate Urine Bilirubin Urine Urobilinogen Leukocyte Esterase Rfl Urine RBC Urine WBC Ur Squamous Epith Cells Urine Bacteria Urine Casts C. difficile (PCR) Negative Blood Type Antibody Screen Crossmatch 07/14/25 07/14/25 07/15/25 20:03 20:08 01:48 WBC RBC Hgb 8.5 L 8.1 L Hct 27.7 L 26.1 L MCV MCH MCHC RDW Plt Count MPV Immature Gran % (Auto) Neut % (Auto) Lymph % (Auto) [place] % (Auto) Eos % (Auto) Baso % (Auto) Lymph # (Auto) [place] # (Auto) Eos # (Auto) Baso # (Auto) Abs Immat Gran (auto) Absolute Neuts (auto) Absolute Nucleated RBC Band Neutrophils % Nucleated RBC % Atypical Lymphocytes Platelet Estimate Hypochromasia Anisocytosis Schistocytes PT INR APTT Sodium Potassium Chloride Carbon Dioxide Anion Gap BUN Creatinine Estim Creat Clear Calc Estimated GFR Glucose POC Capillary Glucose 127 H Calcium Total Bilirubin AST ALT Alkaline Phosphatase Total Protein Albumin Lipase Urine Color Urine Appearance Urine pH Ur Specific [place] Urine Protein Urine Glucose (UA) Urine Ketones Ur Blood (Man) Urine Nitrate Urine Bilirubin Urine Urobilinogen Leukocyte Esterase Rfl Urine RBC Urine WBC Ur Squamous Epith Cells Urine Bacteria Urine Casts C. difficile (PCR) Blood Type Antibody Screen Crossmatch 07/15/25 07:28 WBC RBC Hgb Hct MCV MCH MCHC RDW Plt Count MPV Immature Gran % (Auto) Neut % (Auto) Lymph % (Auto) [place] % (Auto) Eos % (Auto) Baso % (Auto) Lymph # (Auto) [place] # (Auto) Eos # (Auto) Baso # (Auto) Abs Immat Gran (auto) Absolute Neuts (auto) Absolute Nucleated RBC Band Neutrophils % Nucleated RBC % Atypical Lymphocytes Platelet Estimate Hypochromasia Anisocytosis Schistocytes PT INR APTT Sodium Potassium Chloride Carbon Dioxide Anion Gap BUN Creatinine Estim Creat Clear Calc Estimated GFR Glucose POC Capillary Glucose 167 H Calcium Total Bilirubin AST ALT Alkaline Phosphatase Total Protein Albumin Lipase Urine Color Urine Appearance Urine pH Ur Specific [place] Urine Protein Urine Glucose (UA) Urine Ketones Ur Blood (Man) Urine Nitrate Urine Bilirubin Urine Urobilinogen Leukocyte Esterase Rfl Urine RBC Urine WBC Ur Squamous Epith Cells Urine Bacteria Urine Casts C. difficile (PCR) Blood Type Antibody Screen Crossmatch
[2025-07-15] MEDS: FLUTICASONE/SALMETEROL 115-21 MCG INHALER 1 PUFF 2 PUFF INHALATION ×2 (07:53→20:25)
[2025-07-15 08:21] LABS: Hematocrit 27.2 % (42.0-52.0); Hemoglobin 8.5 g/dL (14.0-18.0); Mean Corpuscular HGB Conc 31.3 g/dl (32-36); Mean Corpuscular Hemoglobin 26.3 pg (26-34); Mean Corpuscular Volume 84.2 fl (80-100); Platelet Count Result 249 k/mm3 (150-375); Red Blood Count 3.23 M/mm3 (4.6-6.20); White Blood Count 2.0 K/mm3 (4.5-10.0)
[2025-07-15 08:33] LABS: Anion Gap 3 mmol/L (4-12); Blood Urea Nitrogen 25 mg/dL (9-20); Calcium 8.6 mg/dL (8.4-10.2); Carbon Dioxide 27 mmol/L (22-30); Chloride 106 mmol/L (98-107); Estimated CRCL calculation 62 ml/min; Estimated Glomerular Filt Rate > 60; Glucose 147 mg/dL (65-110); Magnesium 2.3 mg/dL (1.6-2.3); Potassium 3.9 mmol/L (3.4-5.0); Sodium 136 mmol/L (137-145)
[2025-07-15 08:48] LABS: Eosinophils Absolute Manual 0.04 K/mm3 (0.02-0.50); Eosinophils Percent Manual 2 % (0-4); Lymphocytes Absolute Manual 1.06 K/mm3 (1.1-4.5); Lymphocytes Percent Manual 53 % (18-44); Monocytes Absolute Manual 0.12 K/mm3 (0.1-0.90); Monocytes Percent Manual 6 % (3-9); Neutrophils Percent Manual 39 % (46-73); Total Cells Counted 100
[2025-07-15 08:49] LABS: Anisocytosis 1+; Hypochromasia 2+; Polychromasia Occasional
[2025-07-15 08:50] LABS: Ovalocytes Occasional
[2025-07-15 08:51] LABS: Acanthocytes Occasional; Schistocytes 1+; Smudge Cells PRESENT
[2025-07-15] MEDS: PANTOPRAZOLE 40 MG TABLET PO (09:21)
[2025-07-15] MEDS: TAMSULOSIN HCL 0.4 MG CAPSULE PO (09:21)
[2025-07-15] MEDS: FERROUS SULFATE 325 MG TABLET PO ×2 (09:21→16:25)
[2025-07-15] MEDS: EMPAGLIFLOZIN 10 MG TABLET PO (09:23)
[2025-07-15] MEDS: oxyCODONE/ACETAMINOPHEN (*CRX) 5-325 MG TABLET 1 TABLET PO ×2 (09:28→20:50)
--- NOTE | 2025-07-15 09:58 | P.PNCA_ITS ---
Progress Note: A&P Assessment and Plan (1) Coronary artery disease: Code(s): I25.10 - Atherosclerotic heart disease of [place] coronary artery without angina pectoris Status: Acute (2) CHF (congestive heart failure): Code(s): I50.9 - Heart failure, unspecified Status: Acute (3) Hypertension: Code(s): I10 - Essential (primary) hypertension Status: Acute (4) Pericardial effusion: Code(s): I31.39 - Other pericardial effusion (noninflammatory) Status: Acute Plan Assessment: 80-year-old male with GI bleeding with dark blood per rectum CAD, [place] 15 years ago status post stent placement, last catheterization 5 years ago without any intervention, patient on DAPT at the time of admission with aspirin and Brilinta-no chest pain Chronic systolic heart failure with LVEF of 15% by echo in 11/2024-euvolemic by exam Hypertension-hypotension today due to GI bleed with SBP in the 90s History of peptic ulcer disease status post cauterization many years ago Type 2 diabetes mellitus Plan: GI planning for EGD and colonoscopy this morning Given patient had his stent 15 years ago, can stop Brilinta. Continue aspirin 81 mg daily without interruption due to prior stent TTE today GDMT: Hold metoprolol and Entresto given soft blood pressure ongoing GI bleed. Continue empagliflozin Check and replace electrolytes to keep potassium greater than 4 and magnesium greater than 2 Monitor on telemetry P.r.n. EKG for any chest pain Management of other medical problems per primary team Subjective Date/time seen: 07/15/25 09:58 Interval history: Reason for encounter: Recommendations for diet given CAD s/p [place] and PCI in the past in the setting of GI bleeding Relevant history: Interval history: Patient continues to have dark red blood per rectum. His hemoglobin is 8.5 today. His blood pressure is on the low with SBP in the 90s. He has been evaluated by GI and planning for EGD and colonoscopy today. No chest pain or shortness of breath. Review of Systems Review of Systems: A complete review of systems was performed and pertinent positives are reported in the HPI. Exam Narrative: General: Alert oriented x3, no acute distress Neck: Supple, no JVD Chest: Bilaterally clear to auscultation, no rales or rhonchi Cardiac: S1, S2 +, regular rate, regular rhythm, no murmurs or rubs Extremities: No pedal edema, no skin rash Neurologic: Alert and oriented x3, no focal neurological deficits Objective Data Vital Signs Vital Signs: Vital Signs - 24 hr 07/14/25 10:24 07/14/25 11:32 07/14/25 12:34 Temperature 36.5 C Pulse Rate 104 H 80 80 Respiratory Rate 20 18 18 Blood Pressure 108/56 L 88/57 L 119/69 Pulse Oximetry 100 99 100 Oxygen Delivery Room Air 07/14/25 13:35 07/14/25 14:03 07/14/25 14:41 Temperature 36.7 C Pulse Rate 86 89 84 Respiratory Rate 16 18 22 H Blood Pressure 94/59 L 105/51 L 109/87 Pulse Oximetry 98 97 97 Oxygen Delivery 07/14/25 16:00 07/14/25 16:00 07/14/25 18:00 Temperature 36.4 C Pulse Rate 83 79 85 Respiratory Rate 16 Blood Pressure 106/83 Pulse Oximetry 99 Oxygen Delivery 07/14/25 20:00 07/14/25 20:00 07/14/25 20:35 Temperature 36.3 C L Pulse Rate 83 80 87 Respiratory Rate 16 Blood Pressure 125/95 H Pulse Oximetry 97 Oxygen Delivery 07/14/25 22:00 07/14/25 22:36 07/14/25 22:36 Temperature Pulse Rate 78 88 88 Respiratory Rate 16 16 Blood Pressure Pulse Oximetry 95 Oxygen Delivery Room Air 07/15/25 00:00 07/15/25 00:00 07/15/25 02:00 Temperature 36.6 C Pulse Rate 81 72 68 Respiratory Rate 16 Blood Pressure 81/47 L Pulse Oximetry 99 Oxygen Delivery 07/15/25 02:43 07/15/25 03:00 07/15/25 03:34 Temperature 36.4 C 36.4 C 36.2 C L Pulse Rate 79 76 71 Respiratory Rate 20 20 16 Blood Pressure 97/44 L 97/58 L 91/45 L Pulse Oximetry 100 98 99 Oxygen Delivery 07/15/25 04:00 07/15/25 04:00 07/15/25 05:00 Temperature 36.2 C L 36.4 C L Pulse Rate 78 71 82 Respiratory Rate 18 18 Blood Pressure 96/62 L 98/53 L Pulse Oximetry 95 Oxygen Delivery 07/15/25 05:04 07/15/25 06:00 07/15/25 06:03 Temperature 36.6 C 36.6 C Pulse Rate 72 68 80 Respiratory Rate 16 18 Blood Pressure 96/40 L 117/63 Pulse Oximetry 97 98 Oxygen Delivery 07/15/25 07:53 07/15/25 07:53 07/15/25 08:00 Temperature 36.4 C L Pulse Rate 72 72 71 Respiratory Rate 16 26 H Blood Pressure 90/63 L Pulse Oximetry 100 100 Oxygen Delivery Room Air Intake/Output Intake/Output: Intake & Output 07/12/25 07/13/25 07/14/25 07/15/25 23:59 23:59 23:59 23:59 Intake Total 1290 350 Output Total 600 400 Balance 690 -50 Meds/Results Medications: Active Medications Generic Name Dose Route Start Last Admin Trade Name Freq PRN Reason Stop Dose Admin Acetaminophen 650 mg 07/14/25 13:19 Acetaminophen 325 Mg Tablet PO Q4H PRN Mild Pain (1-3) or Fever Albuterol 2 puff 07/14/25 19:25 Albuterol Sulfate (*Sp) Aerosol 1 Puff INHALATION Q4HRT PRN WHEEZE/SOB Dextrose 12.5 gm 07/14/25 13:19 Dextrose 50% 25 Gm/50 Ml Syringe IV PUSH PRN PRN Hypoglycemia Protocol Empagliflozin 10 mg 07/15/25 09:00 07/15/25 09:23 Empagliflozin 10 Mg Tablet PO 10 mg DAILY KIMBERLEY Administration Ferrous Sulfate 325 mg 07/15/25 09:00 07/15/25 09:21 Ferrous Sulfate 325 Mg Tablet PO 325 mg TID KIMBERLEY Administration Glucagon 1 mg 07/14/25 13:19 Glucagon For Inj 1 Mg Vial IM PRN PRN Hypoglycemia Protocol Glucose 15 gm 07/14/25 13:19 Glucose Oral Gel 15 Gm Of Glucse In 37.5 Gm Tube PO PRN PRN Hypoglycemia Protocol Dextrose 1,000 mls @ 100 mls/hr 07/14/25 13:19 Dextrose 5% 1,000 Ml IVPB PRN PRN Hypoglycemia Protocol Ceftriaxone Sodium 1 gm/ 50 mls @ 100 mls/hr 07/15/25 14:00 Sodium Chloride IVPB Q24H KIMBERLEY Insulin Aspart 2 - 5 units 07/14/25 17:00 07/15/25 09:56 Insulin Aspart (*Bkc) 100 Units/Ml SUB-Q Not Given TIDWM KIMBERLEY Protocol Latanoprost 1 drop 07/14/25 21:00 07/14/25 20:37 Latanoprost 0.005% Op Soln 2.5 Ml Btl EACH EYE 1 drop HS KIMBERLEY Administration Metoprolol Succinate 25 mg 07/14/25 21:00 07/14/25 20:35 Metoprolol Succinate Ext Rel 25 Mg Tabcr PO 25 mg HS KIMBERLEY Administration Nitroglycerin 0.4 mg 07/14/25 19:24 Nitroglycerin Sl 0.4 Mg Tablet SUBLINGUAL Q5M PRN Chest Pain Ondansetron HCl 4 mg 07/14/25 13:11 07/14/25 22:34 Ondansetron Inj 4 Mg/2 Ml Vial IV PUSH 4 mg Q4H PRN Administration Nausea Oxycodone/Acetaminophen 1 tablet 07/14/25 19:24 07/15/25 09:28 Oxycodone/Acetaminophen (*Crx) 5-325 Mg Tablet PO 1 tablet Q6H PRN Administration Pain Rated 6 or Greater Pantoprazole Sodium 40 mg 07/15/25 09:00 07/15/25 09:21 Pantoprazole 40 Mg Tablet PO 40 mg Q12HR KIMBERLEY Administration Perflutren Lipid Microsphere 0 ml 07/14/25 15:37 Perflutren Lipid Microspheres 1.5 Ml Vial Diluted To 10 Ml Total Volume IV PUSH 07/17/25 15:38 ONCE PRN adequate visualization Protocol Sacubitril/Valsartan 1 tab 07/15/25 09:00 07/15/25 09:23 Sacubitril/Valsartan 24-26 Mg Tablet PO Not Given Q12HR KIMBERLEY Fluticasone/Salmeterol 2 puff 07/14/25 20:00 07/15/25 07:53 Fluticasone/Salmeterol 115-21 Mcg Inhaler 1 Puff INHALATION 2 puff Q12HRT KIMBERLEY Administration Tamsulosin HCl 0.4 mg 07/15/25 09:00 07/15/25 09:21 Tamsulosin Hcl 0.4 Mg Capsule PO 0.4 mg DAILY KIMBERLEY Administration Radiology Results: ITS Impressions Abdomen/Pelvis CTA 07/14/25 12:36 IMPRESSION: 1. No evidence of active GI bleed or other acute abnormality. Chest X-Ray 07/14/25 13:21 IMPRESSION: 1. Recommend CT chest to better evaluate right midlung opacity. Chest CT 07/14/25 17:50 IMPRESSION: 1. New 2.4 x 2.2 cm pleural-based right upper lobe mass, suspicious for bronchogenic carcinoma. 2: Hiatal hernia with fluid and debris in the esophagus which is mildly thickened, suspicious for esophagitis secondary to reflux. 3: Small pericardial effusion. Labs Labs: Laboratory Results - last 24 hr 07/14/25 07/14/25 07/14/25 11:17 11:18 12:31 WBC 2.0 L RBC 4.20 L Hgb 10.9 L Hct 35.2 L MCV 83.8 MCH 26.0 MCHC 31.0 L RDW 17.6 H Plt Count 280 MPV 9.2 Immature Gran % (Auto) 1.5 H Neut % (Auto) 49.3 Lymph % (Auto) 35.8 [place] % (Auto) 11.9 H Eos % (Auto) 1.5 Baso % (Auto) 0.0 L Lymph # (Auto) 0.72 L [place] # (Auto) 0.2 Eos # (Auto) 0.0 Baso # (Auto) 0.0 Abs Immat Gran (auto) 0.03 Absolute Neuts (auto) 1.0 L Absolute Nucleated RBC 0.000 Total Counted Neutrophils % (Manual) Band Neutrophils % Not Reportable Lymphocytes % (Manual) Monocytes % (Manual) Eosinophils % (Manual) Nucleated RBC % 0.0 Abs Lymphs (Manual) Abs Monocytes (Manual) Absolute Eos (Manual) Atypical Lymphocytes Present Smudge Cells Platelet Estimate Adequate Large Platelets Polychromasia Hypochromasia 1+ Anisocytosis 2+ Ovalocytes Acanthocytes (Spur) Schistocytes None seen PT 13.2 INR 1.0 APTT 36.2 Sodium 135 L Potassium 4.3 Chloride 105 Carbon Dioxide 22 Anion Gap 8 BUN 27 H Creatinine 0.68 L Estim Creat Clear Calc 68 Estimated GFR > 60 Glucose 139 H POC Capillary Glucose Calcium 9.0 Magnesium Total Bilirubin 0.5 AST 28 ALT 19 Alkaline Phosphatase 101 Total Protein 7.6 Albumin 3.6 Lipase 95 Urine Color Yellow Urine Appearance Cloudy H Urine pH 5.5 Ur Specific [place] 1.010 Urine Protein Negative Urine Glucose (UA) 3+ H Urine Ketones Negative Ur Blood (Man) 2+ H Urine Nitrate Negative Urine Bilirubin Negative Urine Urobilinogen 0.2 Leukocyte Esterase Rfl 2+ H Urine RBC 21-50 H Urine WBC 51-100 H Ur Squamous Epith Cells None seen Urine Bacteria 4+ H Urine Casts 3-5 C. difficile (PCR) Blood Type A Positive Antibody Screen Negative Crossmatch See Detail 07/14/25 07/14/25 07/14/25 15:11 16:10 18:20 WBC RBC Hgb 9.3 L Hct 29.6 L MCV MCH MCHC RDW Plt Count MPV Immature Gran % (Auto) Neut % (Auto) Lymph % (Auto) [place] % (Auto) Eos % (Auto) Baso % (Auto) Lymph # (Auto) [place] # (Auto) Eos # (Auto) Baso # (Auto) Abs Immat Gran (auto) Absolute Neuts (auto) Absolute Nucleated RBC Total Counted Neutrophils % (Manual) Band Neutrophils % Lymphocytes % (Manual) Monocytes % (Manual) Eosinophils % (Manual) Nucleated RBC % Abs Lymphs (Manual) Abs Monocytes (Manual) Absolute Eos (Manual) Atypical Lymphocytes Smudge Cells Platelet Estimate Large Platelets Polychromasia Hypochromasia Anisocytosis Ovalocytes Acanthocytes (Spur) Schistocytes PT INR APTT Sodium Potassium Chloride Carbon Dioxide Anion Gap BUN Creatinine Estim Creat Clear Calc Estimated GFR Glucose POC Capillary Glucose 134 H Calcium Magnesium Total Bilirubin AST ALT Alkaline Phosphatase Total Protein Albumin Lipase Urine Color Urine Appearance Urine pH Ur Specific [place] Urine Protein Urine Glucose (UA) Urine Ketones Ur Blood (Man) Urine Nitrate Urine Bilirubin Urine Urobilinogen Leukocyte Esterase Rfl Urine RBC Urine WBC Ur Squamous Epith Cells Urine Bacteria Urine Casts C. difficile (PCR) Negative Blood Type Antibody Screen Crossmatch 07/14/25 07/14/25 07/15/25 20:03 20:08 01:48 WBC RBC Hgb 8.5 L 8.1 L Hct 27.7 L 26.1 L MCV MCH MCHC RDW Plt Count MPV Immature Gran % (Auto) Neut % (Auto) Lymph % (Auto) [place] % (Auto) Eos % (Auto) Baso % (Auto) Lymph # (Auto) [place] # (Auto) Eos # (Auto) Baso # (Auto) Abs Immat Gran (auto) Absolute Neuts (auto) Absolute Nucleated RBC Total Counted Neutrophils % (Manual) Band Neutrophils % Lymphocytes % (Manual) Monocytes % (Manual) Eosinophils % (Manual) Nucleated RBC % Abs Lymphs (Manual) Abs Monocytes (Manual) Absolute Eos (Manual) Atypical Lymphocytes Smudge Cells Platelet Estimate Large Platelets Polychromasia Hypochromasia Anisocytosis Ovalocytes Acanthocytes (Spur) Schistocytes PT INR APTT Sodium Potassium Chloride Carbon Dioxide Anion Gap BUN Creatinine Estim Creat Clear Calc Estimated GFR Glucose POC Capillary Glucose 127 H Calcium Magnesium Total Bilirubin AST ALT Alkaline Phosphatase Total Protein Albumin Lipase Urine Color Urine Appearance Urine pH Ur Specific [place] Urine Protein Urine Glucose (UA) Urine Ketones Ur Blood (Man) Urine Nitrate Urine Bilirubin Urine Urobilinogen Leukocyte Esterase Rfl Urine RBC Urine WBC Ur Squamous Epith Cells Urine Bacteria Urine Casts C. difficile (PCR) Blood Type Antibody Screen Crossmatch 07/15/25 07/15/25 07:28 08:07 WBC 2.0 L RBC 3.23 L Hgb 8.5 L Hct 27.2 L MCV 84.2 MCH 26.3 MCHC 31.3 L RDW 16.8 H Plt Count 249 MPV 9.5 Immature Gran % (Auto) Not Reportable Neut % (Auto) Not Reportable Lymph % (Auto) Not Reportable [place] % (Auto) Not Reportable Eos % (Auto) Not Reportable Baso % (Auto) Not Reportable Lymph # (Auto) Not Reportable [place] # (Auto) Not Reportable Eos # (Auto) Not Reportable Baso # (Auto) Not Reportable Abs Immat Gran (auto) Not Reportable Absolute Neuts (auto) Not Reportable Absolute Nucleated RBC Not Reportable Total Counted 100 Neutrophils % (Manual) 39 L Band Neutrophils % Not Reportable Lymphocytes % (Manual) 53 H Monocytes % (Manual) 6 Eosinophils % (Manual) 2 Nucleated RBC % Not Reportable Abs Lymphs (Manual) 1.06 L Abs Monocytes (Manual) 0.12 Absolute Eos (Manual) 0.04 Atypical Lymphocytes Present Smudge Cells Present Platelet Estimate Adequate Large Platelets Present Polychromasia Occasional Hypochromasia 2+ Anisocytosis 1+ Ovalocytes Occasional Acanthocytes (Spur) Occasional Schistocytes 1+ PT INR APTT Sodium 136 L Potassium 3.9 Chloride 106 Carbon Dioxide 27 Anion Gap 3 L BUN 25 H Creatinine 0.75 Estim Creat Clear Calc 62 Estimated GFR > 60 Glucose 147 H POC Capillary Glucose 167 H Calcium 8.6 Magnesium 2.3 Total Bilirubin AST ALT Alkaline Phosphatase Total Protein Albumin Lipase Urine Color Urine Appearance Urine pH Ur Specific [place] Urine Protein Urine Glucose (UA) Urine Ketones Ur Blood (Man) Urine Nitrate Urine Bilirubin Urine Urobilinogen Leukocyte Esterase Rfl Urine RBC Urine WBC Ur Squamous Epith Cells Urine Bacteria Urine Casts C. difficile (PCR) Blood Type Antibody Screen Crossmatch
[2025-07-15] MEDS: PERFLUTREN LIPID MICROSPHERES 1.5 ML VIAL DILUTED TO 10 ML TOTAL VOLUME IV PUSH (11:24)
--- NOTE | 2025-07-15 11:24 | IVDEFINITY ---
Prior to administration of IV Definity the patient was educated on the risks and benefits of the imaging enhancing agent including potential adverse side effects. The patient verbalized understanding. Allergies were verified. No exclusion criteria were identified and at least one of the following inclusion criteria were met: 1) physician request, 2) patient technically difficult to image (per the [place] [employer] guidelines of two or more segments not discernable within the apical view), or 3) questionable left ventricular function. ?
[2025-07-15] MEDS: LACTATED RINGERS 1,000 ML 30 ML IV CONT (14:04)
--- NOTE | 2025-07-15 14:58 | WPDANESEPPF ---
Anes - Initial Pre Proc Eval Procedure: Operation Date: 07/15/25 14:15 Proposed Procedures p EGD & Diagnostic Colonoscopy - Arjun Valentino MD Date/Time: 07/15/25 14:58 Surgeon: Meghna Zuluaga MD Pre Op Diagnosis: LGIB/UTI Patient Data Age: 80 Gender: M Height: 1.8 m Weight: 66.9 kg Last Vital Signs Temp 36.5 C 07/15/25 14:00 Pulse 80 07/15/25 14:00 Resp 20 07/15/25 14:00 BP 90/64 L 07/15/25 14:00 Pulse Ox 98 07/15/25 14:00 O2 Del Method Room Air 07/15/25 14:00 Allergies Allergy/AdvReac Type Severity Reaction Status Date / Time carvedilol Allergy Severe rash Verified 07/15/25 13:59 swelling lisinopril Allergy Unknown Swelling Verified 07/15/25 13:59 anaphylaxis varenicline Allergy Unknown unknown Verified 07/15/25 13:59 [id number] Reductase AdvReac rash Verified 07/15/25 13:59 Inhibitor swelling Home Medications ?Medication ?Instructions ?Recorded ?Confirmed ?Type aspirin 81 mg tablet,delayed 81 mg PO DAILY 11/29/21 07/14/25 History release latanoprost 0.005 % eye drops 1 drp EACH EYE QPM 11/29/21 07/14/25 History nitroglycerin 0.4 mg sublingual 0.4 mg sublingual Q5M PRN Chest 11/29/21 07/14/25 History tablet Pain potassium chloride 20 mEq 20 meq PO DAILY 11/29/21 07/14/25 History tablet,extended release ticagrelor 60 mg tablet (Brilinta) 60 mg PO Q12H 11/29/21 07/14/25 History sacubitril 24 mg-valsartan 26 mg 1 tablet PO BID 09/04/22 07/14/25 History tablet (Entresto) pantoprazole 40 mg tablet,delayed 40 mg PO BID #60 tabs 06/11/24 07/14/25 Rx release empagliflozin 10 mg tablet 10 mg PO DAILY #30 tabs 12/11/24 07/14/25 Rx (Jardiance) blood sugar diagnostic (OneTouch 06/28/25 07/14/25 History Ultra Test strips) fluticasone 250 mcg-salmeterol 50 1 inh inhalation BID 06/28/25 07/14/25 History mcg/dose blistr powdr for inhalation (Advair Diskus) loratadine 10 mg tablet (Claritin) 10 mg PO DAILY 06/28/25 07/14/25 History oxycodone-acetaminophen 5 mg-325 1 tablet PO Q6H PRN pain #30 tabs 06/28/25 07/14/25 Rx mg tablet (Percocet) tamsulosin 0.4 mg capsule 0.4 mg PO DAILY 06/28/25 07/14/25 History cyanocobalamin (vitamin B-12) 50 50 mcg PO DAILY 07/01/25 07/14/25 History mcg tablet (Vitamin B-12) evolocumab 140 mg/mL subcutaneous See Rx Instructions .Route .COMPLEX 07/01/25 07/14/25 History syringe (Repatha Syringe) metformin 500 mg tablet See Rx Instructions .Route .COMPLEX 07/01/25 07/14/25 History metoprolol succinate 25 mg 25 mg PO QPM 07/01/25 07/14/25 History tablet,extended release 24 hr albuterol sulfate 90 mcg/actuation See Rx Instructions .Route 07/07/25 07/14/25 Rx aerosol inhaler .COMPLEX #25.5 ea furosemide 40 mg tablet See Rx Instructions .Route 07/07/25 07/14/25 Rx .COMPLEX #180 tabs ferrous sulfate 325 mg (65 mg 325 mg PO TID 07/14/25 07/14/25 History iron) tablet,delayed release Laboratory Tests 07/14/25 07/14/25 07/14/25 11:18 15:11 16:10 WBC RBC Hgb 9.3 L g/dL (14.0-18.0) Hct 29.6 L % (42.0-52.0) MCV MCH MCHC RDW Plt Count MPV Immature Gran % (Auto) Neut % (Auto) Lymph % (Auto) [place] % (Auto) Eos % (Auto) Baso % (Auto) Lymph # (Auto) [place] # (Auto) Eos # (Auto) Baso # (Auto) Abs Immat Gran (auto) Absolute Neuts (auto) Absolute Nucleated RBC Total Counted Neutrophils % (Manual) Band Neutrophils % Lymphocytes % (Manual) Monocytes % (Manual) Eosinophils % (Manual) Nucleated RBC % Abs Lymphs (Manual) Abs Monocytes (Manual) Absolute Eos (Manual) Atypical Lymphocytes Smudge Cells Platelet Estimate Large Platelets Polychromasia Hypochromasia Anisocytosis Ovalocytes Acanthocytes (Spur) Schistocytes Sodium Potassium Chloride Carbon Dioxide Anion Gap BUN Creatinine Estim Creat Clear Calc Estimated GFR Glucose POC Capillary Glucose 134 H mg/dl (65-105) Calcium Magnesium C. difficile (PCR) Blood Type A Positive Antibody Screen Negative Crossmatch See Detail 07/14/25 07/14/25 07/14/25 18:20 20:03 20:08 WBC RBC Hgb 8.5 L g/dL (14.0-18.0) Hct 27.7 L % (42.0-52.0) MCV MCH MCHC RDW Plt Count MPV Immature Gran % (Auto) Neut % (Auto) Lymph % (Auto) [place] % (Auto) Eos % (Auto) Baso % (Auto) Lymph # (Auto) [place] # (Auto) Eos # (Auto) Baso # (Auto) Abs Immat Gran (auto) Absolute Neuts (auto) Absolute Nucleated RBC Total Counted Neutrophils % (Manual) Band Neutrophils % Lymphocytes % (Manual) Monocytes % (Manual) Eosinophils % (Manual) Nucleated RBC % Abs Lymphs (Manual) Abs Monocytes (Manual) Absolute Eos (Manual) Atypical Lymphocytes Smudge Cells Platelet Estimate Large Platelets Polychromasia Hypochromasia Anisocytosis Ovalocytes Acanthocytes (Spur) Schistocytes Sodium Potassium Chloride Carbon Dioxide Anion Gap BUN Creatinine Estim Creat Clear Calc Estimated GFR Glucose POC Capillary Glucose 127 H mg/dl (65-105) Calcium Magnesium C. difficile (PCR) Negative (NEGATIVE) Blood Type Antibody Screen Crossmatch 07/15/25 07/15/25 07/15/25 01:48 07:28 08:07 WBC 2.0 L K/mm3 (4.5-10.0) RBC 3.23 L M/mm3 (4.6-6.20) Hgb 8.1 L g/dL 8.5 L g/dL (14.0-18.0) (14.0-18.0) Hct 26.1 L % 27.2 L % (42.0-52.0) (42.0-52.0) MCV 84.2 fl (80-100) MCH 26.3 pg (26-34) MCHC 31.3 L g/dl (32-36) RDW 16.8 H % (11.5-14.5) Plt Count 249 k/mm3 (150-375) MPV 9.5 fl (7.4-10.4) Immature Gran % (Auto) Not Reportable Neut % (Auto) Not Reportable Lymph % (Auto) Not Reportable [place] % (Auto) Not Reportable Eos % (Auto) Not Reportable Baso % (Auto) Not Reportable Lymph # (Auto) Not Reportable [place] # (Auto) Not Reportable Eos # (Auto) Not Reportable Baso # (Auto) Not Reportable Abs Immat Gran (auto) Not Reportable Absolute Neuts (auto) Not Reportable Absolute Nucleated RBC Not Reportable Total Counted 100 Neutrophils % (Manual) 39 L % (46-73) Band Neutrophils % Not Reportable Lymphocytes % (Manual) 53 H % (18-44) Monocytes % (Manual) 6 % (3-9) Eosinophils % (Manual) 2 % (0-4) Nucleated RBC % Not Reportable Abs Lymphs (Manual) 1.06 L K/mm3 (1.1-4.5) Abs Monocytes (Manual) 0.12 K/mm3 (0.1-0.90) Absolute Eos (Manual) 0.04 K/mm3 (0.02-0.50) Atypical Lymphocytes Present Smudge Cells Present Platelet Estimate Adequate (Adequate) Large Platelets Present Polychromasia Occasional Hypochromasia 2+ Anisocytosis 1+ Ovalocytes Occasional Acanthocytes (Spur) Occasional Schistocytes 1+ Sodium 136 L mmol/L (137-145) Potassium 3.9 mmol/L (3.4-5.0) Chloride 106 mmol/L (98-107) Carbon Dioxide 27 mmol/L (22-30) Anion Gap 3 L mmol/L (4-12) BUN 25 H mg/dL (9-20) Creatinine 0.75 mg/dL (0.7-1.3) Estim Creat Clear Calc 62 ml/min Estimated GFR > 60 (59 - ) Glucose 147 H mg/dL (65-110) POC Capillary Glucose 167 H mg/dl (65-105) Calcium 8.6 mg/dL (8.4-10.2) Magnesium 2.3 mg/dL (1.6-2.3) C. difficile (PCR) Blood Type Antibody Screen Crossmatch 07/15/25 07/15/25 11:19 13:55 WBC RBC Hgb Hct MCV MCH MCHC RDW Plt Count MPV Immature Gran % (Auto) Neut % (Auto) Lymph % (Auto) [place] % (Auto) Eos % (Auto) Baso % (Auto) Lymph # (Auto) [place] # (Auto) Eos # (Auto) Baso # (Auto) Abs Immat Gran (auto) Absolute Neuts (auto) Absolute Nucleated RBC Total Counted Neutrophils % (Manual) Band Neutrophils % Lymphocytes % (Manual) Monocytes % (Manual) Eosinophils % (Manual) Nucleated RBC % Abs Lymphs (Manual) Abs Monocytes (Manual) Absolute Eos (Manual) Atypical Lymphocytes Smudge Cells Platelet Estimate Large Platelets Polychromasia Hypochromasia Anisocytosis Ovalocytes Acanthocytes (Spur) Schistocytes Sodium Potassium Chloride Carbon Dioxide Anion Gap BUN Creatinine Estim Creat Clear Calc Estimated GFR Glucose POC Capillary Glucose 126 H mg/dl 119 H mg/dl (65-105) (65-105) Calcium Magnesium C. difficile (PCR) Blood Type Antibody Screen Crossmatch Patient hx anesthesia problems: none Family hx anesthesia problems: none Results Review: All pre-operative results and documents have been reviewed as part of the pre-operative evaluation. [facility] Past Medical History Medical History Weakness Hypertension Type 2 diabetes mellitus Peptic ulcer Congestive heart failure Coronary artery disease Effusion of knee joint Left knee DJD Right knee DJD Upper respiratory tract infection Tendinitis of right rotator cuff Primary osteoarthritis of right shoulder Impingement syndrome of right shoulder Chronic right shoulder pain Myocardial infarction Rotator cuff tear arthropathy of right shoulder Lumbosacral spondylosis with radiculopathy Surgical History Surgical History History of coronary artery stent placement Family History Family History Father Acute myocardial infarction Mother Breast cancer Social History Social History Social History: Surrogate medical decision maker: Alana Renee, friend. Code status: Full code. Smoking packs per day: 0.25 Smoking cigarettes per day: 5.0 Years smoked: 60 Smoking pack-years: 15.00 Smoking status: Current every day smoker Tobacco type: cigarettes Second hand tobacco smoke exposure: Yes Alcohol intake: never Substance use: current Substance use type: marijuana Last use: 12/07/24 Lack of Transportation: No Lack of Food: Never True Current Housing: I Have Housing Concerned About Future Housing: No Difficulty Paying Gas/Electric Bills: No Difficulty Paying for Meds: No Currently Unemployed: No Education: High School Diploma/GED Difficulty w/ Childcare or Family Care: No Living arrangements: alone Additional living arrangements comments: Lives in [place]. Occupation/Education: retired Additional occupation/education comments: [employer]. Spiritual care concerns: No Agree to blood products: Yes Anes - Eval Final PreProcedure Day of Procedure 07/15/25 14:58 Patient weight: normal Heart: regular rate and rhythm Lungs: decreased breath sounds Airway: Mallampati scale class II Neurological: alert and oriented Last oral intake: >/= 8 hours ASA classification: IV Emergent: no Anesthetic plan: proceed Anesthesia type and monitoring: general GIVS and standard monitoring Results Review: All pre-operative results and documents have been reviewed as part of the pre-operative evaluation. Informed Consent: The patient's anesthetic plan and its attendant risks and benefits were discussed with the patient/family/POA. Questions were solicited and answers provided to the satisfaction of the patient/family/POA.
--- NOTE | 2025-07-15 15:14 | SUR.OPER ---
EGD END TIME 1509 COLONOSCOPY START TIME 1515
--- NOTE | 2025-07-15 15:41 | P.PNGI_ITS ---
Progress Note: A&P Assessment and Plan (1) Rectal bleeding: Code(s): K62.5 - Hemorrhage of anus and rectum Status: Acute Assessment and Plan: See EGD and colonoscopy report. Most likely source of GI bleeding is massive diverticular bleeding. There is no cancer, large polyps or ischemic colitis. Patient should continue closely monitored, check labs every 8 hours and will obtain a surgical consult for backup. If the bleeding is not resolved, he was transferred to another institution for angiographic therapy. He is considered a poor surgical candidate for subtotal colectomy due to his very poor heart function. Subjective Date/time seen: 07/15/25 15:41 Objective Data Vital Signs Vital Signs: Vital Signs - 24 hr 07/14/25 16:00 07/14/25 16:00 07/14/25 18:00 Temperature 97.6 F Pulse Rate 83 79 85 Respiratory Rate 16 Blood Pressure 106/83 Pulse Oximetry 99 Oxygen Delivery 07/14/25 20:00 07/14/25 20:00 07/14/25 20:35 Temperature 97.4 F L Pulse Rate 83 80 87 Respiratory Rate 16 Blood Pressure 125/95 H Pulse Oximetry 97 Oxygen Delivery 07/14/25 22:00 07/14/25 22:36 07/14/25 22:36 Temperature Pulse Rate 78 88 88 Respiratory Rate 16 16 Blood Pressure Pulse Oximetry 95 Oxygen Delivery Room Air 07/15/25 00:00 07/15/25 00:00 07/15/25 02:00 Temperature 98 F Pulse Rate 81 72 68 Respiratory Rate 16 Blood Pressure 81/47 L Pulse Oximetry 99 Oxygen Delivery 07/15/25 02:43 07/15/25 03:00 07/15/25 03:34 Temperature 97.6 F 97.6 F 97.1 F L Pulse Rate 79 76 71 Respiratory Rate 20 20 16 Blood Pressure 97/44 L 97/58 L 91/45 L Pulse Oximetry 100 98 99 Oxygen Delivery 07/15/25 04:00 07/15/25 04:00 07/15/25 05:00 Temperature 97.1 F L 97.5 F L Pulse Rate 78 71 82 Respiratory Rate 18 18 Blood Pressure 96/62 L 98/53 L Pulse Oximetry 95 Oxygen Delivery 07/15/25 05:04 07/15/25 06:00 07/15/25 06:03 Temperature 97.9 F 97.8 F Pulse Rate 72 68 80 Respiratory Rate 16 18 Blood Pressure 96/40 L 117/63 Pulse Oximetry 97 98 Oxygen Delivery 07/15/25 07:53 07/15/25 07:53 07/15/25 08:00 Temperature 97.5 F L Pulse Rate 72 72 71 Respiratory Rate 16 26 H Blood Pressure 90/63 L Pulse Oximetry 100 100 Oxygen Delivery Room Air 07/15/25 08:00 07/15/25 12:00 07/15/25 14:00 Temperature 98.1 F 97.7 F Pulse Rate 73 72 80 Respiratory Rate 20 20 Blood Pressure 99/57 L 90/64 L Pulse Oximetry 100 98 Oxygen Delivery Room Air Intake/Output Intake/Output: Intake & Output 07/12/25 07/13/25 07/14/25 07/15/25 23:59 23:59 23:59 23:59 Intake Total 1290 396 Output Total 600 400 Balance 690 -4 Meds/Results Medications: Active Medications Generic Name Dose Route Start Last Admin Trade Name Freq PRN Reason Stop Dose Admin Acetaminophen 650 mg 07/14/25 13:19 Acetaminophen 325 Mg Tablet PO Q4H PRN Mild Pain (1-3) or Fever Albuterol 2 puff 07/14/25 19:25 Albuterol Sulfate (*Sp) Aerosol 1 Puff INHALATION Q4HRT PRN WHEEZE/SOB Dextrose 12.5 gm 07/14/25 13:19 Dextrose 50% 25 Gm/50 Ml Syringe IV PUSH PRN PRN Hypoglycemia Protocol Empagliflozin 10 mg 07/15/25 09:00 07/15/25 09:23 Empagliflozin 10 Mg Tablet PO 10 mg DAILY KIMBERLEY Administration Ferrous Sulfate 325 mg 07/15/25 09:00 07/15/25 15:34 Ferrous Sulfate 325 Mg Tablet PO Not Given TID KIMBERLEY Glucagon 1 mg 07/14/25 13:19 Glucagon For Inj 1 Mg Vial IM PRN PRN Hypoglycemia Protocol Glucose 15 gm 07/14/25 13:19 Glucose Oral Gel 15 Gm Of Glucse In 37.5 Gm Tube PO PRN PRN Hypoglycemia Protocol Dextrose 1,000 mls @ 100 mls/hr 07/14/25 13:19 Dextrose 5% 1,000 Ml IVPB PRN PRN Hypoglycemia Protocol Ceftriaxone Sodium 1 gm/ 50 mls @ 100 mls/hr 07/15/25 14:00 Sodium Chloride IVPB Q24H KIMBERLEY Lactated Ringer's 1,000 mls @ 150 mls/hr 07/15/25 14:00 07/15/25 15:36 Lr - Lactated Ringers Iv IV CONT 150 mls/hr .Q6H40M KIMBERLEY Infusion Insulin Aspart 2 - 5 units 07/14/25 17:00 07/15/25 15:32 Insulin Aspart (*Bkc) 100 Units/Ml SUB-Q Not Given [facility] Protocol Latanoprost 1 drop 07/14/25 21:00 07/14/25 20:37 Latanoprost 0.005% Op Soln 2.5 Ml Btl EACH EYE 1 drop HS KIMBERLEY Administration Metoprolol Succinate 25 mg 07/14/25 21:00 07/14/25 20:35 Metoprolol Succinate Ext Rel 25 Mg Tabcr PO 25 mg HS KIMBERLEY Administration Nitroglycerin 0.4 mg 07/14/25 19:24 Nitroglycerin Sl 0.4 Mg Tablet SUBLINGUAL Q5M PRN Chest Pain Ondansetron HCl 4 mg 07/14/25 13:11 07/14/25 22:34 Ondansetron Inj 4 Mg/2 Ml Vial IV PUSH 4 mg Q4H PRN Administration Nausea Oxycodone/Acetaminophen 1 tablet 07/14/25 19:24 07/15/25 09:28 Oxycodone/Acetaminophen (*Crx) 5-325 Mg Tablet PO 1 tablet Q6H PRN Administration Pain Rated 6 or Greater Pantoprazole Sodium 40 mg 07/15/25 09:00 07/15/25 09:21 Pantoprazole 40 Mg Tablet PO 40 mg Q12HR KIMBERLEY Administration Sacubitril/Valsartan 1 tab 07/15/25 09:00 07/15/25 09:23 Sacubitril/Valsartan 24-26 Mg Tablet PO Not Given Q12HR KIMBERLEY Fluticasone/Salmeterol 2 puff 07/14/25 20:00 07/15/25 07:53 Fluticasone/Salmeterol 115-21 Mcg Inhaler 1 Puff INHALATION 2 puff Q12HRT KIMBERLEY Administration Tamsulosin HCl 0.4 mg 07/15/25 09:00 07/15/25 09:21 Tamsulosin Hcl 0.4 Mg Capsule PO 0.4 mg DAILY KIMBERLEY Administration Radiology Results: ITS Impressions Abdomen/Pelvis CTA 07/14/25 12:36 IMPRESSION: 1. No evidence of active GI bleed or other acute abnormality. Chest X-Ray 07/14/25 13:21 IMPRESSION: 1. Recommend CT chest to better evaluate right midlung opacity. Chest CT 07/14/25 17:50 IMPRESSION: 1. New 2.4 x 2.2 cm pleural-based right upper lobe mass, suspicious for bronchogenic carcinoma. 2: Hiatal hernia with fluid and debris in the esophagus which is mildly thickened, suspicious for esophagitis secondary to reflux. 3: Small pericardial effusion. Labs Labs: Laboratory Results - last 24 hr 07/14/25 07/14/25 07/14/25 11:18 16:10 18:20 WBC RBC Hgb Hct MCV MCH MCHC RDW Plt Count MPV Immature Gran % (Auto) Neut % (Auto) Lymph % (Auto) [place] % (Auto) Eos % (Auto) Baso % (Auto) Lymph # (Auto) [place] # (Auto) Eos # (Auto) Baso # (Auto) Abs Immat Gran (auto) Absolute Neuts (auto) Absolute Nucleated RBC Total Counted Neutrophils % (Manual) Band Neutrophils % Lymphocytes % (Manual) Monocytes % (Manual) Eosinophils % (Manual) Nucleated RBC % Abs Lymphs (Manual) Abs Monocytes (Manual) Absolute Eos (Manual) Atypical Lymphocytes Smudge Cells Platelet Estimate Large Platelets Polychromasia Hypochromasia Anisocytosis Ovalocytes Acanthocytes (Spur) Schistocytes Sodium Potassium Chloride Carbon Dioxide Anion Gap BUN Creatinine Estim Creat Clear Calc Estimated GFR Glucose POC Capillary Glucose 134 H Calcium Magnesium C. difficile (PCR) Negative Blood Type A Positive Antibody Screen Negative Crossmatch See Detail 07/14/25 07/14/25 07/15/25 20:03 20:08 01:48 WBC RBC Hgb 8.5 L 8.1 L Hct 27.7 L 26.1 L MCV MCH MCHC RDW Plt Count MPV Immature Gran % (Auto) Neut % (Auto) Lymph % (Auto) [place] % (Auto) Eos % (Auto) Baso % (Auto) Lymph # (Auto) [place] # (Auto) Eos # (Auto) Baso # (Auto) Abs Immat Gran (auto) Absolute Neuts (auto) Absolute Nucleated RBC Total Counted Neutrophils % (Manual) Band Neutrophils % Lymphocytes % (Manual) Monocytes % (Manual) Eosinophils % (Manual) Nucleated RBC % Abs Lymphs (Manual) Abs Monocytes (Manual) Absolute Eos (Manual) Atypical Lymphocytes Smudge Cells Platelet Estimate Large Platelets Polychromasia Hypochromasia Anisocytosis Ovalocytes Acanthocytes (Spur) Schistocytes Sodium Potassium Chloride Carbon Dioxide Anion Gap BUN Creatinine Estim Creat Clear Calc Estimated GFR Glucose POC Capillary Glucose 127 H Calcium Magnesium C. difficile (PCR) Blood Type Antibody Screen Crossmatch 07/15/25 07/15/25 07/15/25 07:28 08:07 11:19 WBC 2.0 L RBC 3.23 L Hgb 8.5 L Hct 27.2 L MCV 84.2 MCH 26.3 MCHC 31.3 L RDW 16.8 H Plt Count 249 MPV 9.5 Immature Gran % (Auto) Not Reportable Neut % (Auto) Not Reportable Lymph % (Auto) Not Reportable [place] % (Auto) Not Reportable Eos % (Auto) Not Reportable Baso % (Auto) Not Reportable Lymph # (Auto) Not Reportable [place] # (Auto) Not Reportable Eos # (Auto) Not Reportable Baso # (Auto) Not Reportable Abs Immat Gran (auto) Not Reportable Absolute Neuts (auto) Not Reportable Absolute Nucleated RBC Not Reportable Total Counted 100 Neutrophils % (Manual) 39 L Band Neutrophils % Not Reportable Lymphocytes % (Manual) 53 H Monocytes % (Manual) 6 Eosinophils % (Manual) 2 Nucleated RBC % Not Reportable Abs Lymphs (Manual) 1.06 L Abs Monocytes (Manual) 0.12 Absolute Eos (Manual) 0.04 Atypical Lymphocytes Present Smudge Cells Present Platelet Estimate Adequate Large Platelets Present Polychromasia Occasional Hypochromasia 2+ Anisocytosis 1+ Ovalocytes Occasional Acanthocytes (Spur) Occasional Schistocytes 1+ Sodium 136 L Potassium 3.9 Chloride 106 Carbon Dioxide 27 Anion Gap 3 L BUN 25 H Creatinine 0.75 Estim Creat Clear Calc 62 Estimated GFR > 60 Glucose 147 H POC Capillary Glucose 167 H 126 H Calcium 8.6 Magnesium 2.3 C. difficile (PCR) Blood Type Antibody Screen Crossmatch 07/15/25 13:55 WBC RBC Hgb Hct MCV MCH MCHC RDW Plt Count MPV Immature Gran % (Auto) Neut % (Auto) Lymph % (Auto) [place] % (Auto) Eos % (Auto) Baso % (Auto) Lymph # (Auto) [place] # (Auto) Eos # (Auto) Baso # (Auto) Abs Immat Gran (auto) Absolute Neuts (auto) Absolute Nucleated RBC Total Counted Neutrophils % (Manual) Band Neutrophils % Lymphocytes % (Manual) Monocytes % (Manual) Eosinophils % (Manual) Nucleated RBC % Abs Lymphs (Manual) Abs Monocytes (Manual) Absolute Eos (Manual) Atypical Lymphocytes Smudge Cells Platelet Estimate Large Platelets Polychromasia Hypochromasia Anisocytosis Ovalocytes Acanthocytes (Spur) Schistocytes Sodium Potassium Chloride Carbon Dioxide Anion Gap BUN Creatinine Estim Creat Clear Calc Estimated GFR Glucose POC Capillary Glucose 119 H Calcium Magnesium C. difficile (PCR) Blood Type Antibody Screen Crossmatch
[2025-07-15] MEDS: cefTRIAXone 1 GM in SODIUM CHLORIDE 0.9% IV 50 ML 100 ML IVPB (16:20)
--- NOTE | 2025-07-15 18:46 | P.PNIM_ITS ---
Assessment and Plan Assessment and Plan (1) Lower GI bleed: Code(s): K92.2 - Gastrointestinal hemorrhage, unspecified Status: Acute Assessment and Plan: GI consulted Plan for scope tomorrow Okay for diet now, NPO midnight Bowel prep per GI H&H q.6 (2) UTI (urinary tract infection): Code(s): N39.0 - Urinary tract infection, site not specified Status: Acute Assessment and Plan: IV Rocephin Culture and sensitivity pending (3) Pericardial effusion: Code(s): I31.39 - Other pericardial effusion (noninflammatory) Status: Acute Assessment and Plan: Small pericardial effusion. Echo pending (4) Acute blood loss anemia: Code(s): D62 - Acute posthemorrhagic anemia Status: Acute Assessment and Plan: Brilinta? ? Q.6 are H&H Transfuse for hemoglobin less than 7 or symptomatic No need for transfusion at this time Per cardiology Given patient had his stent placed almost 15 years ago, can stop Brilinta. Recommend continue aspirin 81 mg daily without interruption if possible. However if GI needs to stop aspirin acutely for a 1-2 days during evaluation and treatment of acute GI bleed, that will be okay as platelet half life is about 1 week. Do not hold aspirin for more than 1-2 days to avoid risk of stent thrombosis (5) CHF (congestive heart failure): Code(s): I50.9 - Heart failure, unspecified Status: Acute Assessment and Plan: Patient received 500 mils an ED Echocardiogram pending history of low EF Continue to monitor Currently holding Lasix due to soft blood pressures re-evaluate in a.m. (6) Opacity noted on imaging study: Code(s): R93.89 - Abnormal findings on diagnostic imaging of other specified body structures Status: Acute Assessment and Plan: Right midlung opacity on x-ray CT chest pending-non con due to patient getting a CTA of abdomen pelvis prior New 2.4 x 2.2 cm pleural-based right upper lobe mass, suspicious for bronchogenic carcinoma. With leukopenia Pulmonology consulted Patient told about findings (7) Hypertension: Code(s): I10 - Essential (primary) hypertension Status: Acute Assessment and Plan: Holding antihypertensives as blood pressure is also soft likely due to acute blood loss and dehydration (8) Type 2 diabetes mellitus: Code(s): E11.9 - Type 2 diabetes mellitus without complications Status: Acute Assessment and Plan: Accu-Cheks a.c. 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 Subjective Date/time seen: 07/15/25 18:46 Interval history: Blood in stool H&P-Narrative: male with past medical history CAD with stents patient on Brilinta, prior upper GI bleed, hypertension, diabetes, CHF, presents the hospital with bright red blood per rectum. Patient states that he had several bowel movements the other day and this morning that were bloody. He states that he has had several more bowel movements malaise in the hospital however he is also doing bowel prep for the scope tomorrow. Patient has no complaints of fevers chills nausea or vomiting. Patient's lab work shows leukopenia at 2.0, hemoglobin of 10.9 with previous hemoglobin being 12.5, platelets of 280, sodium of 135, BUN 27, creatinine of 0.68, glucose of 139, UA is cloudy with 2+ blood, 2+ leukocyte esterase, 21-50 rbc's 51-100 wbc's and 4+ bacteria. was consulted for lower GI bleed. CTA abdomen pelvis shows no sign of acute bleeding. Chest x-ray showed right mid lung opacity recommending CT. 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 Review of Systems Review of Systems: A complete review of systems was performed and pertinent positives are reported in the HPI. Exam Narrative: Elderly frail Patient is comfortable, NAD HEENT: eyes are clear and none icteric LUNGS:CTA HEART: RR S1S2 ABD: BS+, Soft and nontender Lower extremities: no edema SKIN: nonjaundiced Neuro: grossly intact. Objective Data Vital Signs Vital Signs: Vital Signs - 24 hr 07/14/25 20:00 07/14/25 20:00 07/14/25 20:35 Temperature 36.3 C L Pulse Rate 83 80 87 Respiratory Rate 16 Blood Pressure 125/95 H Pulse Oximetry 97 Oxygen Delivery 07/14/25 22:00 07/14/25 22:36 07/14/25 22:36 Temperature Pulse Rate 78 88 88 Respiratory Rate 16 16 Blood Pressure Pulse Oximetry 95 Oxygen Delivery Room Air 07/15/25 00:00 07/15/25 00:00 07/15/25 02:00 Temperature 36.6 C Pulse Rate 81 72 68 Respiratory Rate 16 Blood Pressure 81/47 L Pulse Oximetry 99 Oxygen Delivery 07/15/25 02:43 07/15/25 03:00 07/15/25 03:34 Temperature 36.4 C 36.4 C 36.2 C L Pulse Rate 79 76 71 Respiratory Rate 20 20 16 Blood Pressure 97/44 L 97/58 L 91/45 L Pulse Oximetry 100 98 99 Oxygen Delivery 07/15/25 04:00 07/15/25 04:00 07/15/25 05:00 Temperature 36.2 C L 36.4 C L Pulse Rate 78 71 82 Respiratory Rate 18 18 Blood Pressure 96/62 L 98/53 L Pulse Oximetry 95 Oxygen Delivery 07/15/25 05:04 07/15/25 06:00 07/15/25 06:03 Temperature 36.6 C 36.6 C Pulse Rate 72 68 80 Respiratory Rate 16 18 Blood Pressure 96/40 L 117/63 Pulse Oximetry 97 98 Oxygen Delivery 07/15/25 07:53 07/15/25 07:53 07/15/25 08:00 Temperature 36.4 C L Pulse Rate 72 72 71 Respiratory Rate 16 26 H Blood Pressure 90/63 L Pulse Oximetry 100 100 Oxygen Delivery Room Air 07/15/25 08:00 07/15/25 10:00 07/15/25 12:00 Temperature 36.7 C Pulse Rate 73 51 L 72 Respiratory Rate 20 Blood Pressure 99/57 L Pulse Oximetry 100 Oxygen Delivery 07/15/25 12:00 07/15/25 14:00 07/15/25 15:39 Temperature 36.5 C Pulse Rate 77 80 95 Respiratory Rate 20 25 H Blood Pressure 90/64 L 125/69 Pulse Oximetry 98 100 Oxygen Delivery Room Air Room Air 07/15/25 15:49 07/15/25 15:59 07/15/25 16:00 Temperature 36.8 C Pulse Rate 89 91 88 Respiratory Rate 21 H 23 H 20 Blood Pressure 106/66 98/56 L 112/58 L Pulse Oximetry 100 98 99 Oxygen Delivery Room Air Room Air 07/15/25 16:17 07/15/25 18:00 Temperature Pulse Rate 89 82 Respiratory Rate Blood Pressure Pulse Oximetry Oxygen Delivery Intake/Output Intake/Output: Intake & Output 07/12/25 07/13/25 07/14/25 07/15/25 23:59 23:59 23:59 23:59 Intake Total 1290 550 Output Total 600 1100 Balance 690 -550 Meds/Results Medications: Active Medications Generic Name Dose Route Start Last Admin Trade Name Freq PRN Reason Stop Dose Admin Acetaminophen 650 mg 07/14/25 13:19 Acetaminophen 325 Mg Tablet PO Q4H PRN Mild Pain (1-3) or Fever Albuterol 2 puff 07/14/25 19:25 Albuterol Sulfate (*Sp) Aerosol 1 Puff INHALATION Q4HRT PRN WHEEZE/SOB Dextrose 12.5 gm 07/14/25 13:19 Dextrose 50% 25 Gm/50 Ml Syringe IV PUSH PRN PRN Hypoglycemia Protocol Empagliflozin 10 mg 07/15/25 09:00 07/15/25 09:23 Empagliflozin 10 Mg Tablet PO 10 mg DAILY KIMBERLEY Administration Ferrous Sulfate 325 mg 07/15/25 09:00 07/15/25 16:25 Ferrous Sulfate 325 Mg Tablet PO 325 mg TID KIMBERLEY Administration Glucagon 1 mg 07/14/25 13:19 Glucagon For Inj 1 Mg Vial IM PRN PRN Hypoglycemia Protocol Glucose 15 gm 07/14/25 13:19 Glucose Oral Gel 15 Gm Of Glucse In 37.5 Gm Tube PO PRN PRN Hypoglycemia Protocol Dextrose 1,000 mls @ 100 mls/hr 07/14/25 13:19 Dextrose 5% 1,000 Ml IVPB PRN PRN Hypoglycemia Protocol Ceftriaxone Sodium 1 gm/ 50 mls @ 100 mls/hr 07/15/25 14:00 07/15/25 16:20 Sodium Chloride IVPB 100 mls/hr Q24H KIMBERLEY Administration Insulin Aspart 2 - 5 units 07/14/25 17:00 07/15/25 16:29 Insulin Aspart (*Bkc) 100 Units/Ml SUB-Q Not Given TIDWM KIMBERLEY Protocol Latanoprost 1 drop 07/14/25 21:00 07/14/25 20:37 Latanoprost 0.005% Op Soln 2.5 Ml Btl EACH EYE 1 drop HS KIMBERLEY Administration Metoprolol Succinate 25 mg 07/14/25 21:00 07/14/25 20:35 Metoprolol Succinate Ext Rel 25 Mg Tabcr PO 25 mg HS KIMBERLEY Administration Nitroglycerin 0.4 mg 07/14/25 19:24 Nitroglycerin Sl 0.4 Mg Tablet SUBLINGUAL Q5M PRN Chest Pain Ondansetron HCl 4 mg 07/14/25 13:11 07/14/25 22:34 Ondansetron Inj 4 Mg/2 Ml Vial IV PUSH 4 mg Q4H PRN Administration Nausea Oxycodone/Acetaminophen 1 tablet 07/14/25 19:24 07/15/25 09:28 Oxycodone/Acetaminophen (*Crx) 5-325 Mg Tablet PO 1 tablet Q6H PRN Administration Pain Rated 6 or Greater Sacubitril/Valsartan 1 tab 07/15/25 09:00 07/15/25 09:23 Sacubitril/Valsartan 24-26 Mg Tablet PO Not Given Q12HR KIMBERLEY Fluticasone/Salmeterol 2 puff 07/14/25 20:00 07/15/25 07:53 Fluticasone/Salmeterol 115-21 Mcg Inhaler 1 Puff INHALATION 2 puff Q12HRT KIMBERLEY Administration Tamsulosin HCl 0.4 mg 07/15/25 09:00 07/15/25 09:21 Tamsulosin Hcl 0.4 Mg Capsule PO 0.4 mg DAILY KIMBERLEY Administration Radiology Results: ITS Impressions Abdomen/Pelvis CTA 07/14/25 12:36 IMPRESSION: 1. No evidence of active GI bleed or other acute abnormality. Chest X-Ray 07/14/25 13:21 IMPRESSION: 1. Recommend CT chest to better evaluate right midlung opacity. Chest CT 07/14/25 17:50 IMPRESSION: 1. New 2.4 x 2.2 cm pleural-based right upper lobe mass, suspicious for bronchogenic carcinoma. 2: Hiatal hernia with fluid and debris in the esophagus which is mildly thickened, suspicious for esophagitis secondary to reflux. 3: Small pericardial effusion. Labs Labs: Laboratory Results - last 24 hr 07/14/25 07/14/25 07/14/25 11:18 18:20 20:03 WBC RBC Hgb 8.5 L Hct 27.7 L MCV MCH MCHC RDW Plt Count MPV Immature Gran % (Auto) Neut % (Auto) Lymph % (Auto) [place] % (Auto) Eos % (Auto) Baso % (Auto) Lymph # (Auto) [place] # (Auto) Eos # (Auto) Baso # (Auto) Abs Immat Gran (auto) Absolute Neuts (auto) Absolute Nucleated RBC Total Counted Neutrophils % (Manual) Band Neutrophils % Lymphocytes % (Manual) Monocytes % (Manual) Eosinophils % (Manual) Nucleated RBC % Abs Lymphs (Manual) Abs Monocytes (Manual) Absolute Eos (Manual) Atypical Lymphocytes Smudge Cells Platelet Estimate Large Platelets Polychromasia Hypochromasia Anisocytosis Ovalocytes Acanthocytes (Spur) Schistocytes Sodium Potassium Chloride Carbon Dioxide Anion Gap BUN Creatinine Estim Creat Clear Calc Estimated GFR Glucose POC Capillary Glucose Calcium Magnesium C. difficile (PCR) Negative Blood Type A Positive Antibody Screen Negative Crossmatch See Detail 07/14/25 07/15/25 07/15/25 20:08 01:48 07:28 WBC RBC Hgb 8.1 L Hct 26.1 L MCV MCH MCHC RDW Plt Count MPV Immature Gran % (Auto) Neut % (Auto) Lymph % (Auto) [place] % (Auto) Eos % (Auto) Baso % (Auto) Lymph # (Auto) [place] # (Auto) Eos # (Auto) Baso # (Auto) Abs Immat Gran (auto) Absolute Neuts (auto) Absolute Nucleated RBC Total Counted Neutrophils % (Manual) Band Neutrophils % Lymphocytes % (Manual) Monocytes % (Manual) Eosinophils % (Manual) Nucleated RBC % Abs Lymphs (Manual) Abs Monocytes (Manual) Absolute Eos (Manual) Atypical Lymphocytes Smudge Cells Platelet Estimate Large Platelets Polychromasia Hypochromasia Anisocytosis Ovalocytes Acanthocytes (Spur) Schistocytes Sodium Potassium Chloride Carbon Dioxide Anion Gap BUN Creatinine Estim Creat Clear Calc Estimated GFR Glucose POC Capillary Glucose 127 H 167 H Calcium Magnesium C. difficile (PCR) Blood Type Antibody Screen Crossmatch 07/15/25 07/15/25 07/15/25 08:07 11:19 13:55 WBC 2.0 L RBC 3.23 L Hgb 8.5 L Hct 27.2 L MCV 84.2 MCH 26.3 MCHC 31.3 L RDW 16.8 H Plt Count 249 MPV 9.5 Immature Gran % (Auto) Not Reportable Neut % (Auto) Not Reportable Lymph % (Auto) Not Reportable [place] % (Auto) Not Reportable Eos % (Auto) Not Reportable Baso % (Auto) Not Reportable Lymph # (Auto) Not Reportable [place] # (Auto) Not Reportable Eos # (Auto) Not Reportable Baso # (Auto) Not Reportable Abs Immat Gran (auto) Not Reportable Absolute Neuts (auto) Not Reportable Absolute Nucleated RBC Not Reportable Total Counted 100 Neutrophils % (Manual) 39 L Band Neutrophils % Not Reportable Lymphocytes % (Manual) 53 H Monocytes % (Manual) 6 Eosinophils % (Manual) 2 Nucleated RBC % Not Reportable Abs Lymphs (Manual) 1.06 L Abs Monocytes (Manual) 0.12 Absolute Eos (Manual) 0.04 Atypical Lymphocytes Present Smudge Cells Present Platelet Estimate Adequate Large Platelets Present Polychromasia Occasional Hypochromasia 2+ Anisocytosis 1+ Ovalocytes Occasional Acanthocytes (Spur) Occasional Schistocytes 1+ Sodium 136 L Potassium 3.9 Chloride 106 Carbon Dioxide 27 Anion Gap 3 L BUN 25 H Creatinine 0.75 Estim Creat Clear Calc 62 Estimated GFR > 60 Glucose 147 H POC Capillary Glucose 126 H 119 H Calcium 8.6 Magnesium 2.3 C. difficile (PCR) Blood Type Antibody Screen Crossmatch 07/15/25 16:28 WBC RBC Hgb Hct MCV MCH MCHC RDW Plt Count MPV Immature Gran % (Auto) Neut % (Auto) Lymph % (Auto) [place] % (Auto) Eos % (Auto) Baso % (Auto) Lymph # (Auto) [place] # (Auto) Eos # (Auto) Baso # (Auto) Abs Immat Gran (auto) Absolute Neuts (auto) Absolute Nucleated RBC Total Counted Neutrophils % (Manual) Band Neutrophils % Lymphocytes % (Manual) Monocytes % (Manual) Eosinophils % (Manual) Nucleated RBC % Abs Lymphs (Manual) Abs Monocytes (Manual) Absolute Eos (Manual) Atypical Lymphocytes Smudge Cells Platelet Estimate Large Platelets Polychromasia Hypochromasia Anisocytosis Ovalocytes Acanthocytes (Spur) Schistocytes Sodium Potassium Chloride Carbon Dioxide Anion Gap BUN Creatinine Estim Creat Clear Calc Estimated GFR Glucose POC Capillary Glucose 125 H Calcium Magnesium C. difficile (PCR) Blood Type Antibody Screen Crossmatch
[2025-07-15] MEDS: SACUBITRIL/VALSARTAN 24-26 MG TABLET 1 TAB PO (20:50)
[2025-07-15] MEDS: METOPROLOL SUCCINATE EXT REL 25 MG TABCR PO (20:50)
[2025-07-15] MEDS: LATANOPROST 0.005% OP SOLN 2.5 ML BTL 1 DROP EACH EYE (20:52)
[2025-07-16] VITALS (24 sets, daily range): BP systolic 79–102; BP diastolic 38–65; PULSE 65–91; RESP 16–24; TEMP 36.3–36.8; O2SAT 93–100
[2025-07-16 06:21] LABS: Hematocrit 22.0 % (42.0-52.0); Mean Corpuscular HGB Conc 30.9 g/dl (32-36); Mean Corpuscular Hemoglobin 26.4 pg (26-34); Mean Corpuscular Volume 85.3 fl (80-100); Platelet Count Result 211 k/mm3 (150-375); Red Blood Count 2.58 M/mm3 (4.6-6.20)
[2025-07-16 06:25] LABS: Hemoglobin 6.8 g/dL (14.0-18.0); White Blood Count 1.5 K/mm3 (4.5-10.0)
[2025-07-16 06:44] LABS: Anion Gap -1 mmol/L (4-12); Blood Urea Nitrogen 16 mg/dL (9-20); Calcium 8.3 mg/dL (8.4-10.2); Carbon Dioxide 27 mmol/L (22-30); Chloride 107 mmol/L (98-107); Estimated CRCL calculation 71 ml/min; Estimated Glomerular Filt Rate > 60; Glucose 107 mg/dL (65-110); Magnesium 2.1 mg/dL (1.6-2.3); Potassium 4.0 mmol/L (3.4-5.0); Sodium 133 mmol/L (137-145)
--- NOTE | 2025-07-16 07:31 | WPDGIPROGNO ---
Progress Note: A&P Assessment and Plan (1) Hemorrhage of large intestine due to diverticular disease: Code(s): K57.31 - Diverticulosis of large intestine without perforation or abscess with bleeding Status: Acute Assessment and Plan: The patient has been experiencing intermittent lower GI bleeding attributed to extensive diverticulosis. EGD successfully excluded an upper source, but colonoscopy revealed diffuse diverticula, making it impossible to localize the exact source of hemorrhage within the colon. Given the patient's persistent hemodynamic instability and ongoing transfusion requirements, transfer to a tertiary care institution for urgent angiographic treatment is considered essential for definitive control. This plan has been discussed with the nursing staff and will be conveyed to the hospitalist in charge for execution. Subjective Date/time seen: 07/16/25 07:31 Interval history: The patient did not have further bloody bowel movement, however his blood pressure has remained low, 80 mmHg systolic throughout the night. His hemoglobin today 6.8. Objective Data Vital Signs Vital Signs: Vital Signs - 24 hr 07/15/25 07:53 07/15/25 07:53 07/15/25 08:00 Temperature 97.5 F L Pulse Rate 72 72 71 Respiratory Rate 16 26 H Blood Pressure 90/63 L Pulse Oximetry 100 100 Oxygen Delivery Room Air 07/15/25 08:00 07/15/25 10:00 07/15/25 12:00 Temperature 98.1 F Pulse Rate 73 51 L 72 Respiratory Rate 20 Blood Pressure 99/57 L Pulse Oximetry 100 Oxygen Delivery 07/15/25 12:00 07/15/25 14:00 07/15/25 15:39 Temperature 97.7 F Pulse Rate 77 80 95 Respiratory Rate 20 25 H Blood Pressure 90/64 L 125/69 Pulse Oximetry 98 100 Oxygen Delivery Room Air Room Air 07/15/25 15:49 07/15/25 15:59 07/15/25 16:00 Temperature 98.3 F Pulse Rate 89 91 88 Respiratory Rate 21 H 23 H 20 Blood Pressure 106/66 98/56 L 112/58 L Pulse Oximetry 100 98 99 Oxygen Delivery Room Air Room Air 07/15/25 16:17 07/15/25 18:00 07/15/25 20:00 Temperature Pulse Rate 89 82 Respiratory Rate Blood Pressure Pulse Oximetry 97 Oxygen Delivery Room Air 07/15/25 20:00 07/15/25 20:00 07/15/25 20:27 Temperature 99.5 F Pulse Rate 81 82 Respiratory Rate 15 Blood Pressure 105/47 L Pulse Oximetry 97 97 Oxygen Delivery Room Air 07/15/25 20:50 07/15/25 22:00 07/15/25 23:23 Temperature Pulse Rate 71 87 Respiratory Rate Blood Pressure Pulse Oximetry 97 Oxygen Delivery Room Air 07/16/25 00:00 07/16/25 00:00 07/16/25 02:00 Temperature 97.4 F L Pulse Rate 76 73 82 Respiratory Rate 16 Blood Pressure 88/57 L Pulse Oximetry 99 Oxygen Delivery 07/16/25 03:01 07/16/25 04:00 07/16/25 04:00 Temperature 97.7 F Pulse Rate 73 72 Respiratory Rate 18 Blood Pressure 84/65 L Pulse Oximetry 99 100 Oxygen Delivery Room Air 07/16/25 05:41 07/16/25 05:44 Temperature Pulse Rate 75 Respiratory Rate Blood Pressure 92/60 L Pulse Oximetry Oxygen Delivery Intake/Output Intake/Output: Intake & Output 07/13/25 07/14/25 07/15/25 07/16/25 23:59 23:59 23:59 23:59 Intake Total 1290 670 400 Output Total 600 1100 Balance 690 -430 400 Meds/Results Medications: Active Medications Generic Name Dose Route Start Last Admin Trade Name Freq PRN Reason Stop Dose Admin Acetaminophen 650 mg 07/14/25 13:19 Acetaminophen 325 Mg Tablet PO Q4H PRN Mild Pain (1-3) or Fever Albuterol 2 puff 07/14/25 19:25 Albuterol Sulfate (*Sp) Aerosol 1 Puff INHALATION Q4HRT PRN WHEEZE/SOB Dextrose 12.5 gm 07/14/25 13:19 Dextrose 50% 25 Gm/50 Ml Syringe IV PUSH PRN PRN Hypoglycemia Protocol Empagliflozin 10 mg 07/15/25 09:00 07/15/25 09:23 Empagliflozin 10 Mg Tablet PO 10 mg DAILY KIMBERLEY Administration Ferrous Sulfate 325 mg 07/15/25 09:00 07/15/25 16:25 Ferrous Sulfate 325 Mg Tablet PO 325 mg TID KIMBERLEY Administration Glucagon 1 mg 07/14/25 13:19 Glucagon For Inj 1 Mg Vial IM PRN PRN Hypoglycemia Protocol Glucose 15 gm 07/14/25 13:19 Glucose Oral Gel 15 Gm Of Glucse In 37.5 Gm Tube PO PRN PRN Hypoglycemia Protocol Dextrose 1,000 mls @ 100 mls/hr 07/14/25 13:19 Dextrose 5% 1,000 Ml IVPB PRN PRN Hypoglycemia Protocol Ceftriaxone Sodium 1 gm/ 50 mls @ 100 mls/hr 07/15/25 14:00 07/15/25 16:20 Sodium Chloride IVPB 100 mls/hr Q24H KIMBERLEY Administration Sodium Chloride 250 mls @ 30 mls/hr 07/16/25 06:52 Normal Saline Iv IV CONT 07/16/25 15:11 .Q8H20M STA Insulin Aspart 2 - 5 units 07/14/25 17:00 07/15/25 16:29 Insulin Aspart (*Bkc) 100 Units/Ml SUB-Q Not Given TIDWM KIMBERLEY Protocol Latanoprost 1 drop 07/14/25 21:00 07/15/25 20:52 Latanoprost 0.005% Op Soln 2.5 Ml Btl EACH EYE 1 drop HS KIMBERLEY Administration Metoprolol Succinate 25 mg 07/14/25 21:00 07/15/25 20:50 Metoprolol Succinate Ext Rel 25 Mg Tabcr PO 25 mg HS KIMBERLEY Administration Nitroglycerin 0.4 mg 07/14/25 19:24 Nitroglycerin Sl 0.4 Mg Tablet SUBLINGUAL Q5M PRN Chest Pain Ondansetron HCl 4 mg 07/14/25 13:11 07/14/25 22:34 Ondansetron Inj 4 Mg/2 Ml Vial IV PUSH 4 mg Q4H PRN Administration Nausea Oxycodone/Acetaminophen 1 tablet 07/14/25 19:24 07/15/25 20:50 Oxycodone/Acetaminophen (*Crx) 5-325 Mg Tablet PO 1 tablet Q6H PRN Administration Pain Rated 6 or Greater Sacubitril/Valsartan 1 tab 07/15/25 09:00 07/15/25 20:50 Sacubitril/Valsartan 24-26 Mg Tablet PO 1 tab Q12HR KIMBERLEY Administration Fluticasone/Salmeterol 2 puff 07/14/25 20:00 07/15/25 20:25 Fluticasone/Salmeterol 115-21 Mcg Inhaler 1 Puff INHALATION 2 puff Q12HRT KIMBERLEY Administration Tamsulosin HCl 0.4 mg 07/15/25 09:00 07/15/25 09:21 Tamsulosin Hcl 0.4 Mg Capsule PO 0.4 mg DAILY KIMBERLEY Administration Radiology Results: ITS Impressions Abdomen/Pelvis CTA 07/14/25 12:36 IMPRESSION: 1. No evidence of active GI bleed or other acute abnormality. Chest X-Ray 07/14/25 13:21 IMPRESSION: 1. Recommend CT chest to better evaluate right midlung opacity. Chest CT 07/14/25 17:50 IMPRESSION: 1. New 2.4 x 2.2 cm pleural-based right upper lobe mass, suspicious for bronchogenic carcinoma. 2: Hiatal hernia with fluid and debris in the esophagus which is mildly thickened, suspicious for esophagitis secondary to reflux. 3: Small pericardial effusion. Labs Labs: Laboratory Results - last 24 hr 07/14/25 07/15/25 07/15/25 11:18 07:28 08:07 WBC 2.0 L RBC 3.23 L Hgb 8.5 L Hct 27.2 L MCV 84.2 MCH 26.3 MCHC 31.3 L RDW 16.8 H Plt Count 249 MPV 9.5 Immature Gran % (Auto) Not Reportable Neut % (Auto) Not Reportable Lymph % (Auto) Not Reportable [place] % (Auto) Not Reportable Eos % (Auto) Not Reportable Baso % (Auto) Not Reportable Lymph # (Auto) Not Reportable [place] # (Auto) Not Reportable Eos # (Auto) Not Reportable Baso # (Auto) Not Reportable Abs Immat Gran (auto) Not Reportable Absolute Neuts (auto) Not Reportable Absolute Nucleated RBC Not Reportable Total Counted 100 Neutrophils % (Manual) 39 L Band Neutrophils % Not Reportable Lymphocytes % (Manual) 53 H Monocytes % (Manual) 6 Eosinophils % (Manual) 2 Nucleated RBC % Not Reportable Abs Lymphs (Manual) 1.06 L Abs Monocytes (Manual) 0.12 Absolute Eos (Manual) 0.04 Atypical Lymphocytes Present Smudge Cells Present Platelet Estimate Adequate Large Platelets Present Polychromasia Occasional Hypochromasia 2+ Anisocytosis 1+ Ovalocytes Occasional Acanthocytes (Spur) Occasional Schistocytes 1+ Sodium 136 L Potassium 3.9 Chloride 106 Carbon Dioxide 27 Anion Gap 3 L BUN 25 H Creatinine 0.75 Estim Creat Clear Calc 62 Estimated GFR > 60 Glucose 147 H POC Capillary Glucose 167 H Calcium 8.6 Magnesium 2.3 Blood Type A Positive Antibody Screen Negative Crossmatch See Detail 07/15/25 07/15/25 07/15/25 11:19 13:55 16:28 WBC RBC Hgb Hct MCV MCH MCHC RDW Plt Count MPV Immature Gran % (Auto) Neut % (Auto) Lymph % (Auto) [place] % (Auto) Eos % (Auto) Baso % (Auto) Lymph # (Auto) [place] # (Auto) Eos # (Auto) Baso # (Auto) Abs Immat Gran (auto) Absolute Neuts (auto) Absolute Nucleated RBC Total Counted Neutrophils % (Manual) Band Neutrophils % Lymphocytes % (Manual) Monocytes % (Manual) Eosinophils % (Manual) Nucleated RBC % Abs Lymphs (Manual) Abs Monocytes (Manual) Absolute Eos (Manual) Atypical Lymphocytes Smudge Cells Platelet Estimate Large Platelets Polychromasia Hypochromasia Anisocytosis Ovalocytes Acanthocytes (Spur) Schistocytes Sodium Potassium Chloride Carbon Dioxide Anion Gap BUN Creatinine Estim Creat Clear Calc Estimated GFR Glucose POC Capillary Glucose 126 H 119 H 125 H Calcium Magnesium Blood Type Antibody Screen Crossmatch 07/15/25 07/16/25 19:59 05:54 WBC 1.5 L* RBC 2.58 L Hgb 6.8 L* Hct 22.0 L MCV 85.3 MCH 26.4 MCHC 30.9 L RDW 17.0 H Plt Count 211 MPV 9.9 Immature Gran % (Auto) Neut % (Auto) Lymph % (Auto) [place] % (Auto) Eos % (Auto) Baso % (Auto) Lymph # (Auto) [place] # (Auto) Eos # (Auto) Baso # (Auto) Abs Immat Gran (auto) Absolute Neuts (auto) Absolute Nucleated RBC Total Counted Neutrophils % (Manual) Band Neutrophils % Lymphocytes % (Manual) Monocytes % (Manual) Eosinophils % (Manual) Nucleated RBC % Abs Lymphs (Manual) Abs Monocytes (Manual) Absolute Eos (Manual) Atypical Lymphocytes Smudge Cells Platelet Estimate Large Platelets Polychromasia Hypochromasia Anisocytosis Ovalocytes Acanthocytes (Spur) Schistocytes Sodium 133 L Potassium 4.0 Chloride 107 Carbon Dioxide 27 Anion Gap -1 L BUN 16 Creatinine 0.63 L Estim Creat Clear Calc 71 Estimated GFR > 60 Glucose 107 POC Capillary Glucose 114 H Calcium 8.3 L Magnesium 2.1 Blood Type Antibody Screen Crossmatch
[2025-07-16] MEDS: FLUTICASONE/SALMETEROL 115-21 MCG INHALER 1 PUFF 2 PUFF INHALATION ×2 (07:34→21:47)
[2025-07-16] MEDS: TAMSULOSIN HCL 0.4 MG CAPSULE PO (08:50)
[2025-07-16] MEDS: FERROUS SULFATE 325 MG TABLET PO ×3 (08:51→16:52)
[2025-07-16] MEDS: SACUBITRIL/VALSARTAN 24-26 MG TABLET 1 TAB PO ×2 (08:51→20:05)
[2025-07-16] MEDS: EMPAGLIFLOZIN 10 MG TABLET PO (08:51)
[2025-07-16] MEDS: INSULIN ASPART (*BKC) 100 UNITS/ML SUB-Q (09:41)
[2025-07-16] MEDS: MIDODRINE HCL 2.5 MG TABLET PO ×3 (09:46→16:52)
[2025-07-16] MEDS: SODIUM CHLORIDE 0.9% IV 250 ML 30 ML IV CONT (09:47)
[2025-07-16] MEDS: TUBING, BLOOD PLUM PUMP TUBING 1 EACH XX (09:47)
[2025-07-16] MEDS: SODIUM CHLORIDE 0.9% IV 250 ML IV CONT (11:22)
[2025-07-16 11:58] LABS: Hematocrit 25.3 % (42.0-52.0); Hemoglobin 7.9 g/dL (14.0-18.0)
[2025-07-16] MEDS: cefTRIAXone 1 GM in SODIUM CHLORIDE 0.9% IV 50 ML 100 ML IVPB (13:32)
--- NOTE | 2025-07-16 14:06 | WPDANESPN ---
Anes - Prog Note Post-Op Date/Time: 07/16/25 14:06 Cardiovascular status: normal Respiratory status: normal Airway patency: baseline Mental status: baseline Post-Op hydration status: normal Vital Signs: Last Vital Signs Temp 36.8 C 07/16/25 11:21 Pulse 69 07/16/25 12:00 Resp 18 07/16/25 11:21 BP 91/44 L 07/16/25 11:21 Pulse Ox 100 07/16/25 11:21 O2 Del Method Room Air 07/16/25 07:35 Pain Score (VAS): 1 I/O: Intake & Output 07/15/25 07/16/25 07/16/25 23:59 07:59 15:59 Intake Total 324 1300 1180 Output Total 700 300 Balance -376 1300 880 Laboratory Tests 07/16/25 11:54 07/16/25 05:54 07/14/25 07/15/25 07/15/25 11:18 16:28 19:59 WBC RBC Hgb Hct MCV MCH MCHC RDW Plt Count MPV Sodium Potassium Chloride Carbon Dioxide Anion Gap BUN Creatinine Estim Creat Clear Calc Estimated GFR Glucose POC Capillary Glucose 125 H 114 H Calcium Magnesium Blood Type A Positive Antibody Screen Negative Crossmatch See Detail 07/16/25 07/16/25 07/16/25 05:54 07:47 11:18 WBC 1.5 L* RBC 2.58 L Hgb 6.8 L* Hct 22.0 L MCV 85.3 MCH 26.4 MCHC 30.9 L RDW 17.0 H Plt Count 211 MPV 9.9 Sodium 133 L Potassium 4.0 Chloride 107 Carbon Dioxide 27 Anion Gap -1 L BUN 16 Creatinine 0.63 L Estim Creat Clear Calc 71 Estimated GFR > 60 Glucose 107 POC Capillary Glucose 207 H 102 Calcium 8.3 L Magnesium 2.1 Blood Type Antibody Screen Crossmatch 07/16/25 11:54 WBC RBC Hgb 7.9 L Hct 25.3 L MCV MCH MCHC RDW Plt Count MPV Sodium Potassium Chloride Carbon Dioxide Anion Gap BUN Creatinine Estim Creat Clear Calc Estimated GFR Glucose POC Capillary Glucose Calcium Magnesium Blood Type Antibody Screen Crossmatch Microbiology 07/14/25 12:31 Urine Clean Catch - Preliminary Gram negative bacilli isolated Patient Feedback: Patient satisfied with anesthetic care.
[2025-07-16 17:20] LABS: Hematocrit 23.9 % (42.0-52.0); Hemoglobin 7.7 g/dL (14.0-18.0)
--- NOTE | 2025-07-16 17:32 | P.PNIM_ITS ---
Assessment and Plan Assessment and Plan (1) Lower GI bleed: Code(s): K92.2 - Gastrointestinal hemorrhage, unspecified Status: Acute Assessment and Plan: GI consulted Plan for scope tomorrow Okay for diet now, NPO midnight Bowel prep per GI H&H q.6 (2) UTI (urinary tract infection): Code(s): N39.0 - Urinary tract infection, site not specified Status: Acute Assessment and Plan: IV Rocephin Culture and sensitivity pending (3) Pericardial effusion: Code(s): I31.39 - Other pericardial effusion (noninflammatory) Status: Acute Assessment and Plan: Small pericardial effusion. Echo pending (4) Acute blood loss anemia: Code(s): D62 - Acute posthemorrhagic anemia Status: Acute Assessment and Plan: Brilinta? ? Q.6 are H&H Transfuse for hemoglobin less than 7 or symptomatic No need for transfusion at this time Per cardiology Given patient had his stent placed almost 15 years ago, can stop Brilinta. Recommend continue aspirin 81 mg daily without interruption if possible. However if GI needs to stop aspirin acutely for a 1-2 days during evaluation and treatment of acute GI bleed, that will be okay as platelet half life is about 1 week. Do not hold aspirin for more than 1-2 days to avoid risk of stent thrombosis (5) CHF (congestive heart failure): Code(s): I50.9 - Heart failure, unspecified Status: Acute Assessment and Plan: Patient received 500 mils an ED Echocardiogram pending history of low EF Continue to monitor Currently holding Lasix due to soft blood pressures re-evaluate in a.m. (6) Opacity noted on imaging study: Code(s): R93.89 - Abnormal findings on diagnostic imaging of other specified body structures Status: Acute Assessment and Plan: Right midlung opacity on x-ray CT chest pending-non con due to patient getting a CTA of abdomen pelvis prior New 2.4 x 2.2 cm pleural-based right upper lobe mass, suspicious for bronchogenic carcinoma. With leukopenia Pulmonology consulted Patient told about findings (7) Hypertension: Code(s): I10 - Essential (primary) hypertension Status: Acute Assessment and Plan: Holding antihypertensives as blood pressure is also soft likely due to acute blood loss and dehydration (8) Type 2 diabetes mellitus: Code(s): E11.9 - Type 2 diabetes mellitus without complications Status: Acute Assessment and Plan: Accu-Cheks a.c. 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 on 07/15/25 patient wa seen by GI and had EGD which was normal and there was upper GI bleed, colonoscopy showed Multiple wide-mouth diverticula were present in the ascending colon, in the transverse colon, in the descending colon, and in the sigmoid colon. No definite source or specific diverticulum bleeding, however there is old retained blood throughout. No blood seen coming through the ileo cecal valve. No polyps, neoplasia or colitis, Dr Pulido was concern that patient angiogram to find the source of bleeding and to transfer to [facility] for the procedure, I called the [facility] and spoke with Dr Santiago ALBERTO, he recommended to patient HH after transfusion, if the HH is dropping then he will accept the patient for the transfer, 1st repeated HH was 6.8., 2 hrs after transfusion his HH was 7.9 and 4 hr transfusion his HH is 7.7 suggesting patient is not bleeding, I have ordered another HH at 00:00 hours, again if patient HH drops will call [facility] as instructed by the GI, I did speak with Dr. Valentino and gave update what [facility] has recommended. I have instructed nursing staff to watch of any bleeding and call MD director of community education and or stockroom coordinator. I have also gave updates to Dr. Liao the MD catering convention services manager until 7PM. Subjective Date/time seen: 07/16/25 17:32 Interval history: Blood in stool H&P-Narrative: male with past medical history CAD with stents patient on Brilinta, prior upper GI bleed, hypertension, diabetes, CHF, presents the hospital with bright red blood per rectum. Patient states that he had several bowel movements the other day and this morning that were bloody. He states that he has had several more bowel movements malaise in the hospital however he is also doing bowel prep for the scope tomorrow. Patient has no complaints of fevers chills nausea or vomiting. Patient's lab work shows leukopenia at 2.0, hemoglobin of 10.9 with previous hemoglobin being 12.5, platelets of 280, sodium of 135, BUN 27, creatinine of 0.68, glucose of 139, UA is cloudy with 2+ blood, 2+ leukocyte esterase, 21-50 rbc's 51-100 wbc's and 4+ bacteria. was consulted for lower GI bleed. CTA abdomen pelvis shows no sign of acute bleeding. Chest x-ray showed right mid lung opacity recommending CT. 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 on 07/15/25 patient wa seen by GI and had EGD which was normal and there was upper GI bleed, colonoscopy showed Multiple wide-mouth diverticula were present in the ascending colon, in the transverse colon, in the descending colon, and in the sigmoid colon. No definite source or specific diverticulum bleeding, however there is old retained blood throughout. No blood seen coming through the ileo cecal valve. No polyps, neoplasia or colitis, Dr Pulido was concern that patient angiogram to find the source of bleeding and to transfer to [facility] for the procedure, I called the [facility] and spoke with Dr Santiago ALBERTO, he recommended to patient HH after transfusion, if the HH is dropping then he will accept the patient for the transfer, 1st repeated HH was 6.8., 2 hrs after transfusion his HH was 7.9 and 4 hr transfusion his HH is 7.7 suggesting patient is not bleeding, I have ordered another HH at 00:00 hours, again if patient HH drops will call [place] as instructed by the DOLLY, I did speak with Dr. Valentino and gave update what [facility] has recommended. Review of Systems Review of Systems: A complete review of systems was performed and pertinent positives are reported in the HPI. Exam Narrative: Elderly frail Patient is comfortable, NAD HEENT: eyes are clear and none icteric LUNGS:CTA HEART: RR S1S2 ABD: BS+, Soft and nontender Lower extremities: no edema SKIN: nonjaundiced Neuro: grossly intact. Objective Data Vital Signs Vital Signs: Vital Signs - 24 hr 07/15/25 18:00 07/15/25 20:00 07/15/25 20:00 Temperature 37.5 C Pulse Rate 82 81 Respiratory Rate 15 Blood Pressure 105/47 L Pulse Oximetry 97 97 Oxygen Delivery Room Air 07/15/25 20:00 07/15/25 20:27 07/15/25 20:50 Temperature Pulse Rate 82 71 Respiratory Rate Blood Pressure Pulse Oximetry 97 Oxygen Delivery Room Air 07/15/25 22:00 07/15/25 23:23 07/16/25 00:00 Temperature 36.3 C L Pulse Rate 87 76 Respiratory Rate 16 Blood Pressure 88/57 L Pulse Oximetry 97 99 Oxygen Delivery Room Air 07/16/25 00:00 07/16/25 02:00 07/16/25 03:01 Temperature Pulse Rate 73 82 Respiratory Rate Blood Pressure Pulse Oximetry 99 Oxygen Delivery Room Air 07/16/25 04:00 07/16/25 04:00 07/16/25 05:41 Temperature 36.5 C Pulse Rate 73 72 Respiratory Rate 18 Blood Pressure 84/65 L 92/60 L Pulse Oximetry 100 Oxygen Delivery 07/16/25 05:44 07/16/25 07:35 07/16/25 07:35 Temperature Pulse Rate 75 91 Respiratory Rate 18 Blood Pressure Pulse Oximetry 93 Oxygen Delivery Room Air 07/16/25 07:44 07/16/25 08:00 07/16/25 09:05 Temperature 36.4 C 36.6 C Pulse Rate 86 73 72 Respiratory Rate 20 18 Blood Pressure 94/56 L 95/38 L Pulse Oximetry 99 99 Oxygen Delivery 07/16/25 09:20 07/16/25 10:00 07/16/25 10:20 Temperature 36.6 C 36.6 C Pulse Rate 65 70 68 Respiratory Rate 18 24 H Blood Pressure 79/39 L 102/44 L Pulse Oximetry 100 100 Oxygen Delivery 07/16/25 11:02 07/16/25 11:21 07/16/25 12:00 Temperature 36.4 C L 36.8 C Pulse Rate 65 69 69 Respiratory Rate 16 18 Blood Pressure 79/41 L 91/44 L Pulse Oximetry 100 100 Oxygen Delivery 07/16/25 16:03 Temperature 36.8 C Pulse Rate 69 Respiratory Rate 20 Blood Pressure 97/47 L Pulse Oximetry 100 Oxygen Delivery Intake/Output Intake/Output: Intake & Output 07/13/25 07/14/25 07/15/25 07/16/25 23:59 23:59 23:59 23:59 Intake Total 8093 391 4602 Output Total 600 1100 800 Balance 690 -350 1800 Meds/Results Medications: Active Medications Generic Name Dose Route Start Last Admin Trade Name Freq PRN Reason Stop Dose Admin Acetaminophen 650 mg 07/14/25 13:19 Acetaminophen 325 Mg Tablet PO Q4H PRN Mild Pain (1-3) or Fever Albuterol 2 puff 07/14/25 19:25 Albuterol Sulfate (*Sp) Aerosol 1 Puff INHALATION Q4HRT PRN WHEEZE/SOB Dextrose 12.5 gm 07/14/25 13:19 Dextrose 50% 25 Gm/50 Ml Syringe IV PUSH PRN PRN Hypoglycemia Protocol Empagliflozin 10 mg 07/15/25 09:00 07/16/25 08:51 Empagliflozin 10 Mg Tablet PO 10 mg DAILY KIMBERLEY Administration Ferrous Sulfate 325 mg 07/15/25 09:00 07/16/25 16:52 Ferrous Sulfate 325 Mg Tablet PO 325 mg TID KIMBERLEY Administration Glucagon 1 mg 07/14/25 13:19 Glucagon For Inj 1 Mg Vial IM PRN PRN Hypoglycemia Protocol Glucose 15 gm 07/14/25 13:19 Glucose Oral Gel 15 Gm Of Glucse In 37.5 Gm Tube PO PRN PRN Hypoglycemia Protocol Dextrose 1,000 mls @ 100 mls/hr 07/14/25 13:19 Dextrose 5% 1,000 Ml IVPB PRN PRN Hypoglycemia Protocol Ceftriaxone Sodium 1 gm/ 50 mls @ 100 mls/hr 07/15/25 14:00 07/16/25 13:32 Sodium Chloride IVPB 100 mls/hr Q24H KIMBERLEY Administration Insulin Aspart 2 - 5 units 07/14/25 17:00 07/16/25 12:41 Insulin Aspart (*Bkc) 100 Units/Ml SUB-Q Not Given TIDWM KIMBERLEY Protocol Latanoprost 1 drop 07/14/25 21:00 07/15/25 20:52 Latanoprost 0.005% Op Soln 2.5 Ml Btl EACH EYE 1 drop HS KIMBERLEY Administration Metoprolol Succinate 25 mg 07/14/25 21:00 07/15/25 20:50 Metoprolol Succinate Ext Rel 25 Mg Tabcr PO 25 mg HS KIMBERLEY Administration Midodrine 2.5 mg 07/16/25 13:00 07/16/25 16:52 Midodrine Hcl 2.5 Mg Tablet PO 2.5 mg TID KIMBERLEY Administration Nitroglycerin 0.4 mg 07/14/25 19:24 Nitroglycerin Sl 0.4 Mg Tablet SUBLINGUAL Q5M PRN Chest Pain Ondansetron HCl 4 mg 07/14/25 13:11 07/14/25 22:34 Ondansetron Inj 4 Mg/2 Ml Vial IV PUSH 4 mg Q4H PRN Administration Nausea Oxycodone/Acetaminophen 1 tablet 07/14/25 19:24 07/15/25 20:50 Oxycodone/Acetaminophen (*Crx) 5-325 Mg Tablet PO 1 tablet Q6H PRN Administration Pain Rated 6 or Greater Sacubitril/Valsartan 1 tab 07/15/25 09:00 07/16/25 08:51 Sacubitril/Valsartan 24-26 Mg Tablet PO 1 tab Q12HR KIMBERLEY Administration Fluticasone/Salmeterol 2 puff 07/14/25 20:00 07/16/25 07:34 Fluticasone/Salmeterol 115-21 Mcg Inhaler 1 Puff INHALATION 2 puff Q12HRT KIMBERLEY Administration Tamsulosin HCl 0.4 mg 07/15/25 09:00 07/16/25 08:50 Tamsulosin Hcl 0.4 Mg Capsule PO 0.4 mg DAILY KIMBERLEY Administration Radiology Results: ITS Impressions Abdomen/Pelvis CTA 07/14/25 12:36 IMPRESSION: 1. No evidence of active GI bleed or other acute abnormality. Chest X-Ray 07/14/25 13:21 IMPRESSION: 1. Recommend CT chest to better evaluate right midlung opacity. Chest CT 07/14/25 17:50 IMPRESSION: 1. New 2.4 x 2.2 cm pleural-based right upper lobe mass, suspicious for bronchogenic carcinoma. 2: Hiatal hernia with fluid and debris in the esophagus which is mildly thickened, suspicious for esophagitis secondary to reflux. 3: Small pericardial effusion. Labs Labs: Laboratory Results - last 24 hr 07/14/25 07/15/25 07/16/25 11:18 19:59 05:54 WBC 1.5 L* RBC 2.58 L Hgb 6.8 L* Hct 22.0 L MCV 85.3 MCH 26.4 MCHC 30.9 L RDW 17.0 H Plt Count 211 MPV 9.9 Sodium 133 L Potassium 4.0 Chloride 107 Carbon Dioxide 27 Anion Gap -1 L BUN 16 Creatinine 0.63 L Estim Creat Clear Calc 71 Estimated GFR > 60 Glucose 107 POC Capillary Glucose 114 H Calcium 8.3 L Magnesium 2.1 Blood Type A Positive Antibody Screen Negative Crossmatch See Detail 07/16/25 07/16/25 07/16/25 07:47 11:18 11:54 WBC RBC Hgb 7.9 L Hct 25.3 L MCV MCH MCHC RDW Plt Count MPV Sodium Potassium Chloride Carbon Dioxide Anion Gap BUN Creatinine Estim Creat Clear Calc Estimated GFR Glucose POC Capillary Glucose 207 H 102 Calcium Magnesium Blood Type Antibody Screen Crossmatch 07/16/25 07/16/25 15:09 17:10 WBC RBC Hgb 7.7 L Hct 23.9 L MCV MCH MCHC RDW Plt Count MPV Sodium Potassium Chloride Carbon Dioxide Anion Gap BUN Creatinine Estim Creat Clear Calc Estimated GFR Glucose POC Capillary Glucose 137 H Calcium Magnesium Blood Type Antibody Screen Crossmatch
[2025-07-16] MEDS: ALBUMIN HUMAN 25% 25 GM/100 ML 100 ML IVPB (18:28)
--- NOTE | 2025-07-16 18:56 | PC.NURSE ---
On 07/16/25, the WEB PRODUCTION ASSISTANT, Alban Whitfield, provided care and completed [facility] documentation on this patient. I have reviewed the WEB PRODUCTION ASSISTANT's documentation and agree with the findings.
[2025-07-16] MEDS: METOPROLOL SUCCINATE EXT REL 25 MG TABCR PO (20:05)
[2025-07-16] MEDS: LATANOPROST 0.005% OP SOLN 2.5 ML BTL 1 DROP EACH EYE (20:08)
[2025-07-17] VITALS (22 sets, daily range): BP systolic 78–101; BP diastolic 39–62; PULSE 59–85; RESP 16–20; TEMP 36.3–37.3; O2SAT 96–100
[2025-07-17 00:25] LABS: Hematocrit 21.8 % (42.0-52.0)
[2025-07-17 00:29] LABS: Hemoglobin 6.8 g/dL (14.0-18.0)
--- NOTE | 2025-07-17 01:34 | PM.EVENT ---
Event Note Event Note Event Note: Hemoglobin 6.8. No bowel movement since prior to colonoscopy. Blood pressure 87/43. Patient reports no symptoms whatsoever including shortness of breath. He is lying in the bed comfortably. Physical exam included poor skin turgor, extremely dry mucous membranes. Pale skin tone. Regular rate and rhythm, lungs clear to auscultation. No respiratory distress. 1 unit of blood preparing to be administered. Cheetah test resulting 12.8. After 1 unit of blood will continue with normal saline at 100 cc with close monitoring of volume status as he is fluid responsive but has cardiomyopathy with reduced ejection fraction. Pushing morning labs to be drawn altogether 1 hour after blood transfusion is completed to reduce quantity of blood draws. Patient was still receiving Jardiance daily, Entresto b.i.d., metoprolol q.h.s.. Tamsulosin daily. I have placed all these on hold.
[2025-07-17] MEDS: SODIUM CHLORIDE 0.9% IV 250 ML 30 ML IV CONT (01:38)
[2025-07-17] MEDS: SODIUM CHLORIDE 0.9% IV 1,000 ML 125 ML IV CONT ×3 (01:59→20:23)
[2025-07-17 05:17] LABS: Hematocrit 24.5 % (42.0-52.0); Hemoglobin 7.8 g/dL (14.0-18.0); Mean Corpuscular HGB Conc 31.8 g/dl (32-36); Mean Corpuscular Hemoglobin 27.3 pg (26-34); Mean Corpuscular Volume 85.7 fl (80-100); Platelet Count Result 162 k/mm3 (150-375); Red Blood Count 2.86 M/mm3 (4.6-6.20)
[2025-07-17 05:25] LABS: White Blood Count 1.4 K/mm3 (4.5-10.0)
[2025-07-17 06:11] LABS: Anion Gap 3 mmol/L (4-12); Blood Urea Nitrogen 7 mg/dL (9-20); Calcium 8.3 mg/dL (8.4-10.2); Carbon Dioxide 23 mmol/L (22-30); Chloride 107 mmol/L (98-107); Estimated CRCL calculation 78 ml/min; Estimated Glomerular Filt Rate > 60; Glucose 107 mg/dL (65-110); Magnesium 2.1 mg/dL (1.6-2.3); Potassium 3.7 mmol/L (3.4-5.0); Sodium 133 mmol/L (137-145)
[2025-07-17] MEDS: FLUTICASONE/SALMETEROL 115-21 MCG INHALER 1 PUFF 2 PUFF INHALATION ×2 (07:22→20:23)
[2025-07-17] MEDS: MIDODRINE HCL 2.5 MG TABLET PO ×3 (08:35→17:30)
[2025-07-17] MEDS: FERROUS SULFATE 325 MG TABLET PO ×3 (08:35→17:30)
--- NOTE | 2025-07-17 09:51 | WPDGIPROGNO ---
Progress Note: A&P Assessment and Plan (1) Hemorrhage of large intestine due to diverticular disease: Code(s): K57.31 - Diverticulosis of large intestine without perforation or abscess with bleeding Status: Acute Assessment and Plan: colonoscopy noted stigmata of recent bleeding but could not find culprit diverticula he has been hypotensive again and required more blood transfusion [facility] required to repeat another CT and then will reassess but regardless patient needs transfer to tertiary center given unstable condition, colonoscopy was not successful to identify or treat source of bleeding which most likely is diverticula in colon next step is evauation by interventional radiology- if [facility] does not accept transfer then hospitalist will try other hospitals, this was discussed with primary team today (2) Lower GI bleed: Code(s): K92.2 - Gastrointestinal hemorrhage, unspecified Status: Acute (3) Acute blood loss anemia: Code(s): D62 - Acute posthemorrhagic anemia Status: Acute (4) Leukopenia: Code(s): D72.819 - Decreased white blood cell count, unspecified Status: Acute (5) Hypotension: Code(s): I95.9 - Hypotension, unspecified Status: Acute (6) Cardiomyopathy: Code(s): I42.9 - Cardiomyopathy, unspecified Status: Acute Assessment and Plan: repeat EF 25-30% Subjective Date/time seen: 07/17/25 09:51 Interval history: last night RN informed that BP was soft and he required another unit prbc, today passed large BM with blood. Hospitalist aware and trying to transfer to tertiary center. Review of Systems Review of Systems: All systems reviewed & are unremarkable except as noted in HPI and below Exam Narrative: Elderly frail Patient is comfortable, NAD neck: supple HEENT: eyes are clear and none icteric LUNGS:CTA HEART: RR S1S2 ABD: BS+, Soft and nontender Lower extremities: no edema SKIN: pale Neuro: grossly intact. Objective Data Vital Signs Vital Signs: Vital Signs - 24 hr 07/16/25 10:00 07/16/25 10:20 07/16/25 11:02 Temperature 97.8 F 97.5 F L Pulse Rate 70 68 65 Respiratory Rate 24 H 16 Blood Pressure 102/44 L 79/41 L Pulse Oximetry 100 100 Oxygen Delivery Fraction of Inspired Oxygen 07/16/25 11:21 07/16/25 12:00 07/16/25 14:00 Temperature 98.2 F Pulse Rate 69 69 69 Respiratory Rate 18 Blood Pressure 91/44 L Pulse Oximetry 100 Oxygen Delivery Fraction of Inspired Oxygen 07/16/25 16:00 07/16/25 16:03 07/16/25 18:00 Temperature 98.2 F Pulse Rate 68 69 81 Respiratory Rate 20 Blood Pressure 97/47 L Pulse Oximetry 100 Oxygen Delivery Fraction of Inspired Oxygen 07/16/25 20:00 07/16/25 20:00 07/16/25 20:00 Temperature 98.3 F Pulse Rate 71 70 Respiratory Rate 16 Blood Pressure 98/47 L Pulse Oximetry 98 98 Oxygen Delivery Room Air Fraction of Inspired Oxygen 07/16/25 20:05 07/16/25 21:49 07/16/25 22:00 Temperature Pulse Rate 71 73 Respiratory Rate Blood Pressure Pulse Oximetry 98 Oxygen Delivery Room Air Fraction of Inspired Oxygen 07/17/25 00:00 07/17/25 00:00 07/17/25 00:00 Temperature 97.4 F L Pulse Rate 69 72 Respiratory Rate 18 Blood Pressure 87/43 L Pulse Oximetry 98 98 Oxygen Delivery Room Air Fraction of Inspired Oxygen 07/17/25 01:40 07/17/25 01:40 07/17/25 02:00 Temperature 98.1 F 98.1 F Pulse Rate 69 69 61 Respiratory Rate 16 16 Blood Pressure 82/43 L 82/43 L Pulse Oximetry 97 97 Oxygen Delivery Fraction of Inspired Oxygen 07/17/25 02:02 07/17/25 02:17 07/17/25 03:02 Temperature 98.1 F 98 F 98.2 F Pulse Rate 69 67 66 Respiratory Rate 16 20 18 Blood Pressure 82/43 L 86/41 L 78/49 L Pulse Oximetry 97 96 98 Oxygen Delivery Fraction of Inspired Oxygen 07/17/25 03:12 07/17/25 03:17 07/17/25 03:59 Temperature 98.2 F 98 F Pulse Rate 59 L 59 L Respiratory Rate 20 18 Blood Pressure 78/41 L 90/39 L Pulse Oximetry 96 97 98 Oxygen Delivery Room Air Fraction of Inspired Oxygen 07/17/25 04:00 07/17/25 04:00 07/17/25 05:59 Temperature Pulse Rate 59 L 73 69 Respiratory Rate 18 Blood Pressure 90/39 L Pulse Oximetry 98 Oxygen Delivery Fraction of Inspired Oxygen 07/17/25 07:22 07/17/25 08:00 Temperature 97.3 F L Pulse Rate 71 Respiratory Rate 20 Blood Pressure 96/62 L Pulse Oximetry 98 99 Oxygen Delivery Room Air Fraction of Inspired Oxygen 21 Intake/Output Intake/Output: Intake & Output 07/14/25 07/15/25 07/16/25 07/17/25 23:59 23:59 23:59 23:59 Intake Total 6996 054 2750 540 Output Total 600 1100 1700 500 Balance 690 -350 1700 40 Meds/Results Medications: Active Medications Generic Name Dose Route Start Last Admin Trade Name Freq PRN Reason Stop Dose Admin Acetaminophen 650 mg 07/14/25 13:19 Acetaminophen 325 Mg Tablet PO Q4H PRN Mild Pain (1-3) or Fever Albuterol 2 puff 07/14/25 19:25 Albuterol Sulfate (*Sp) Aerosol 1 Puff INHALATION Q4HRT PRN WHEEZE/SOB Dextrose 12.5 gm 07/14/25 13:19 Dextrose 50% 25 Gm/50 Ml Syringe IV PUSH PRN PRN Hypoglycemia Protocol Empagliflozin 10 mg 07/15/25 09:00 07/16/25 08:51 Empagliflozin 10 Mg Tablet PO 10 mg On Hold: 07/17/25 00:53 DAILY KIMBERLEY Administration Ferrous Sulfate 325 mg 07/15/25 09:00 07/17/25 08:35 Ferrous Sulfate 325 Mg Tablet PO 325 mg TID KIMBERLEY Administration Glucagon 1 mg 07/14/25 13:19 Glucagon For Inj 1 Mg Vial IM PRN PRN Hypoglycemia Protocol Glucose 15 gm 07/14/25 13:19 Glucose Oral Gel 15 Gm Of Glucse In 37.5 Gm Tube PO PRN PRN Hypoglycemia Protocol Dextrose 1,000 mls @ 100 mls/hr 07/14/25 13:19 Dextrose 5% 1,000 Ml IVPB PRN PRN Hypoglycemia Protocol Ceftriaxone Sodium 1 gm/ 50 mls @ 100 mls/hr 07/15/25 14:00 07/16/25 17:00 Sodium Chloride IVPB Infused Q24H KIMBERLEY Infusion Sodium Chloride 1,000 mls @ 125 mls/hr 07/17/25 01:55 07/17/25 01:59 Normal Saline Iv IV CONT 125 mls/hr .Q8H KIMBERLEY Administration Insulin Aspart 2 - 5 units 07/14/25 17:00 07/17/25 08:29 Insulin Aspart (*Bkc) 100 Units/Ml SUB-Q Not Given TIDWM [facility] Protocol Latanoprost 1 drop 07/14/25 21:00 07/16/25 20:08 Latanoprost 0.005% Op Soln 2.5 Ml Btl EACH EYE 1 drop HS KIMBERLEY Administration Metoprolol Succinate 25 mg 07/14/25 21:00 07/16/25 20:05 Metoprolol Succinate Ext Rel 25 Mg Tabcr PO 25 mg On Hold: 07/17/25 00:53 HS KIMBERLEY Administration Midodrine 2.5 mg 07/16/25 13:00 07/17/25 08:35 Midodrine Hcl 2.5 Mg Tablet PO 2.5 mg TID KIMBERLEY Administration Nitroglycerin 0.4 mg 07/14/25 19:24 Nitroglycerin Sl 0.4 Mg Tablet SUBLINGUAL Q5M PRN Chest Pain Ondansetron HCl 4 mg 07/14/25 13:11 07/14/25 22:34 Ondansetron Inj 4 Mg/2 Ml Vial IV PUSH 4 mg Q4H PRN Administration Nausea Oxycodone/Acetaminophen 1 tablet 07/14/25 19:24 07/15/25 20:50 Oxycodone/Acetaminophen (*Crx) 5-325 Mg Tablet PO 1 tablet Q6H PRN Administration Pain Rated 6 or Greater Sacubitril/Valsartan 1 tab 07/15/25 09:00 07/16/25 20:05 Sacubitril/Valsartan 24-26 Mg Tablet PO 1 tab On Hold: 07/17/25 00:53 Q12HR KIMBERLEY Administration Fluticasone/Salmeterol 2 puff 07/14/25 20:00 07/17/25 07:22 Fluticasone/Salmeterol 115-21 Mcg Inhaler 1 Puff INHALATION 2 puff Q12HRT KIMBERLEY Administration Tamsulosin HCl 0.4 mg 07/15/25 09:00 07/16/25 08:50 Tamsulosin Hcl 0.4 Mg Capsule PO 0.4 mg On Hold: 07/17/25 01:38 DAILY KIMBERLEY Administration Radiology Results: ITS Impressions Abdomen/Pelvis CTA 07/14/25 12:36 IMPRESSION: 1. No evidence of active GI bleed or other acute abnormality. Chest X-Ray 07/14/25 13:21 IMPRESSION: 1. Recommend CT chest to better evaluate right midlung opacity. Chest CT 07/14/25 17:50 IMPRESSION: 1. New 2.4 x 2.2 cm pleural-based right upper lobe mass, suspicious for bronchogenic carcinoma. 2: Hiatal hernia with fluid and debris in the esophagus which is mildly thickened, suspicious for esophagitis secondary to reflux. 3: Small pericardial effusion. Abdomen/Pelvis CT 07/17/25 09:31 IMPRESSION: 1. No findings of active GI bleed. 2. Mild gastritis not excluded. 3. Additional findings as above. Labs Labs: Laboratory Results - last 24 hr 07/14/25 07/16/25 07/16/25 11:18 11:18 11:54 WBC RBC Hgb 7.9 L Hct 25.3 L MCV MCH MCHC RDW Plt Count MPV Sodium Potassium Chloride Carbon Dioxide Anion Gap BUN Creatinine Estim Creat Clear Calc Estimated GFR Glucose POC Capillary Glucose 102 Calcium Magnesium Blood Type A Positive Antibody Screen Negative Crossmatch See Detail 07/16/25 07/16/25 07/16/25 15:09 17:10 20:02 WBC RBC Hgb 7.7 L Hct 23.9 L MCV MCH MCHC RDW Plt Count MPV Sodium Potassium Chloride Carbon Dioxide Anion Gap BUN Creatinine Estim Creat Clear Calc Estimated GFR Glucose POC Capillary Glucose 137 H 132 H Calcium Magnesium Blood Type Antibody Screen Crossmatch 07/17/25 07/17/25 07/17/25 00:15 05:10 07:07 WBC 1.4 L* RBC 2.86 L Hgb 6.8 L* 7.8 L Hct 21.8 L 24.5 L MCV 85.7 MCH 27.3 MCHC 31.8 L RDW 16.2 H Plt Count 162 MPV 9.6 Sodium 133 L Potassium 3.7 Chloride 107 Carbon Dioxide 23 Anion Gap 3 L BUN 7 L D Creatinine 0.56 L Estim Creat Clear Calc 78 Estimated GFR > 60 Glucose 107 POC Capillary Glucose 115 H Calcium 8.3 L Magnesium 2.1 Blood Type Antibody Screen Crossmatch
--- NOTE | 2025-07-17 09:56 | PC.NURSE ---
On 07/17/25, the student, Mona Puckett[ ], provided care and completed [facility] documentation on this patient. I have reviewed the student's documentation and agree with the findings.
[2025-07-17] MEDS: cefTRIAXone 1 GM in SODIUM CHLORIDE 0.9% IV 50 ML 100 ML IVPB (13:10)
--- NOTE | 2025-07-17 17:13 | P.PNIM_ITS ---
Assessment and Plan Assessment and Plan (1) Lower GI bleed: Code(s): K92.2 - Gastrointestinal hemorrhage, unspecified Status: Acute Assessment and Plan: GI consulted Plan for scope tomorrow Okay for diet now, NPO midnight Bowel prep per GI H&H q.6 (2) UTI (urinary tract infection): Code(s): N39.0 - Urinary tract infection, site not specified Status: Acute Assessment and Plan: IV Rocephin Culture and sensitivity pending (3) Pericardial effusion: Code(s): I31.39 - Other pericardial effusion (noninflammatory) Status: Acute Assessment and Plan: Small pericardial effusion. Echo pending (4) Acute blood loss anemia: Code(s): D62 - Acute posthemorrhagic anemia Status: Acute Assessment and Plan: Brilinta? ? Q.6 are H&H Transfuse for hemoglobin less than 7 or symptomatic No need for transfusion at this time Per cardiology Given patient had his stent placed almost 15 years ago, can stop Brilinta. Recommend continue aspirin 81 mg daily without interruption if possible. However if GI needs to stop aspirin acutely for a 1-2 days during evaluation and treatment of acute GI bleed, that will be okay as platelet half life is about 1 week. Do not hold aspirin for more than 1-2 days to avoid risk of stent thrombosis (5) CHF (congestive heart failure): Code(s): I50.9 - Heart failure, unspecified Status: Acute Assessment and Plan: Patient received 500 mils an ED Echocardiogram pending history of low EF Continue to monitor Currently holding Lasix due to soft blood pressures re-evaluate in a.m. (6) Opacity noted on imaging study: Code(s): R93.89 - Abnormal findings on diagnostic imaging of other specified body structures Status: Acute Assessment and Plan: Right midlung opacity on x-ray CT chest pending-non con due to patient getting a CTA of abdomen pelvis prior New 2.4 x 2.2 cm pleural-based right upper lobe mass, suspicious for bronchogenic carcinoma. With leukopenia Pulmonology consulted Patient told about findings (7) Hypertension: Code(s): I10 - Essential (primary) hypertension Status: Acute Assessment and Plan: Holding antihypertensives as blood pressure is also soft likely due to acute blood loss and dehydration (8) Type 2 diabetes mellitus: Code(s): E11.9 - Type 2 diabetes mellitus without complications Status: Acute Assessment and Plan: Accu-Cheks a.c. HS SSI Hold metformin L (9) Coronary artery disease: Code(s): I25.10 - Atherosclerotic heart disease of [place] coronary artery without angina pectoris Status: Acute Assessment and Plan: ELISSA Hensley, no need to restart on discharge as it has been 15 years since his [place] Okay to restart aspirin after scope Continue metoprolol, Entresto, empagliflozin if blood pressure allows Plan patient with rectal bleeding, his hgb was 10.9 patient with severe cardiomyopathy wit EF of 15%, patient was by the director pharmacovigilance and cleared the patient for colonoscopy and EGD, patient will be seen by the GI and will have the procedure later today, will monitor. on 07/15/25 patient wa seen by GI and had EGD which was normal and there was upper GI bleed, colonoscopy showed Multiple wide-mouth diverticula were present in the ascending colon, in the transverse colon, in the descending colon, and in the sigmoid colon. No definite source or specific diverticulum bleeding, however there is old retained blood throughout. No blood seen coming through the ileo cecal valve. No polyps, neoplasia or colitis, Dr Pulido was concern that patient angiogram to find the source of bleeding and to transfer to [facility] for the procedure, I called the [facility] and spoke with Dr Santiago TURCIOS, he recommended to patient HH after transfusion, if the HH is dropping then he will accept the patient for the transfer, 1st repeated HH was 6.8., 2 hrs after transfusion his HH was 7.9 and 4 hr transfusion his HH is 7.7 suggesting patient is not bleeding, I have ordered another HH at 00:00 hours, again if patient HH drops will call [facility] as instructed by the GI, I did speak with Dr. Valentino and gave update what [facility] has recommended. I have instructed nursing staff to watch of any bleeding and call MD prepared foods production team member and or insecticide expert. I have also gave updates to Dr. Liao the MD agricultural produce commission agent until 7PM. Patient did have 2 large bloody BM and his hgb dropped to 6.8 and he was given 2 units of PRBC and now his Hgb is 7.8, Called [facility] transfer line, discussed with Dr. Muriel Turcios, and he as accepted the patient pending bed availability, patient wish to go to [facility] as his director pharmacovigilance at the hospital. will do nuclear study for GI bleed on Saturday and monitor, patient is clinically stable. gave updates to Hermann Ugarte will monitor. Subjective Date/time seen: 07/17/25 17:13 Interval history: Blood in stool H&P-Narrative: male with past medical history CAD with stents patient on Brilinta, prior upper GI bleed, hypertension, diabetes, CHF, presents the hospital with bright red blood per rectum. Patient states that he had several bowel movements the other day and this morning that were bloody. He states that he has had several more bowel movements malaise in the hospital however he is also doing bowel prep for the scope tomorrow. Patient has no complaints of fevers chills nausea or vomiting. Patient's lab work shows leukopenia at 2.0, hemoglobin of 10.9 with previous hemoglobin being 12.5, platelets of 280, sodium of 135, BUN 27, creatinine of 0.68, glucose of 139, UA is cloudy with 2+ blood, 2+ leukocyte esterase, 21-50 rbc's 51-100 wbc's and 4+ bacteria. was consulted for lower GI bleed. CTA abdomen pelvis shows no sign of acute bleeding. Chest x-ray showed right mid lung opacity recommending CT. patient with rectal bleeding, his hgb was 10.9 patient with severe cardiomyopathy wit EF of 15%, patient was seen by the director pharmacovigilance and cleared the patient for colonoscopy and EGD, patient will be seen by the GI and will have the procedure later today, will monitor. on 07/15/25 patient wa seen by GI and had EGD which was normal and there was upper GI bleed, colonoscopy showed Multiple wide-mouth diverticula were present in the ascending colon, in the transverse colon, in the descending colon, and in the sigmoid colon. No definite source or specific diverticulum bleeding, however there is old retained blood throughout. No blood seen coming through the ileo cecal valve. No polyps, neoplasia or colitis, Dr Pulido was concern that patient angiogram to find the source of bleeding and to transfer to [facility] for the procedure, I called the [facility] and spoke with Dr Santiago TURCIOS, he recommended to patient HH after transfusion, if the HH is dropping then he will accept the patient for the transfer, 1st repeated HH was 6.8., 2 hrs after transfusion his HH was 7.9 and 4 hr transfusion his HH is 7.7 suggesting patient is not bleeding, I have ordered another HH at 00:00 hours, again if patient HH drops will call [facility] as instructed by the GI, I did speak with Dr. Valentino and gave update what [facility] has recommended. Patient did have 2 large bloody BM and his hgb dropped to 6.8 and he was given 2 units of PRBC and now his Hgb is 7.8, Called [facility] transfer line, discussed with Dr. Muriel Turcios, and he as accepted the patient pending bed availability, patient wish to go to [facility] as his director pharmacovigilance at the hospital. will do nuclear study for GI bleed on Saturday and monitor, patient is clinically stable. gave updates to Hermann Ugarte will monitor. Review of Systems Review of Systems: A complete review of systems was performed and pertinent positives are reported in the HPI. Exam Narrative: Elderly frail Patient is comfortable, NAD HEENT: eyes are clear and none icteric LUNGS:CTA HEART: RR S1S2 ABD: BS+, Soft and nontender Lower extremities: no edema SKIN: nonjaundiced Neuro: grossly intact. Objective Data Vital Signs Vital Signs: Vital Signs - 24 hr 07/16/25 18:00 07/16/25 20:00 07/16/25 20:00 Temperature 36.8 C Pulse Rate 81 71 Respiratory Rate 16 Blood Pressure 98/47 L Pulse Oximetry 98 98 Oxygen Delivery Room Air Fraction of Inspired Oxygen 07/16/25 20:00 07/16/25 20:05 07/16/25 21:49 Temperature Pulse Rate 70 71 Respiratory Rate Blood Pressure Pulse Oximetry 98 Oxygen Delivery Room Air Fraction of Inspired Oxygen 07/16/25 22:00 07/17/25 00:00 07/17/25 00:00 Temperature 36.3 C L Pulse Rate 73 69 Respiratory Rate 18 Blood Pressure 87/43 L Pulse Oximetry 98 98 Oxygen Delivery Room Air Fraction of Inspired Oxygen 07/17/25 00:00 07/17/25 01:40 07/17/25 01:40 Temperature 36.7 C 36.7 C Pulse Rate 72 69 69 Respiratory Rate 16 16 Blood Pressure 82/43 L 82/43 L Pulse Oximetry 97 97 Oxygen Delivery Fraction of Inspired Oxygen 07/17/25 02:00 07/17/25 02:02 07/17/25 02:17 Temperature 36.7 C 36.6 C Pulse Rate 61 69 67 Respiratory Rate 16 20 Blood Pressure 82/43 L 86/41 L Pulse Oximetry 97 96 Oxygen Delivery Fraction of Inspired Oxygen 07/17/25 03:02 07/17/25 03:12 07/17/25 03:17 Temperature 36.8 C 36.8 C Pulse Rate 66 59 L Respiratory Rate 18 20 Blood Pressure 78/49 L 78/41 L Pulse Oximetry 98 96 97 Oxygen Delivery Room Air Fraction of Inspired Oxygen 07/17/25 03:59 07/17/25 04:00 07/17/25 04:00 Temperature 36.6 C Pulse Rate 59 L 59 L 73 Respiratory Rate 18 18 Blood Pressure 90/39 L 90/39 L Pulse Oximetry 98 98 Oxygen Delivery Fraction of Inspired Oxygen 07/17/25 05:59 07/17/25 07:22 07/17/25 08:00 Temperature 36.3 C L Pulse Rate 69 71 Respiratory Rate 20 Blood Pressure 96/62 L Pulse Oximetry 98 99 Oxygen Delivery Room Air Fraction of Inspired Oxygen 21 07/17/25 08:00 07/17/25 08:00 07/17/25 10:00 Temperature Pulse Rate 63 66 66 Respiratory Rate 20 Blood Pressure Pulse Oximetry 99 Oxygen Delivery Room Air Fraction of Inspired Oxygen 21 07/17/25 11:28 07/17/25 12:00 07/17/25 12:00 Temperature 36.6 C Pulse Rate 68 71 72 Respiratory Rate 18 Blood Pressure 100/51 L Pulse Oximetry 100 Oxygen Delivery Room Air Fraction of Inspired Oxygen 21 07/17/25 14:00 07/17/25 16:00 Temperature 36.4 C Pulse Rate 67 66 Respiratory Rate 18 Blood Pressure 101/53 L Pulse Oximetry 98 Oxygen Delivery Fraction of Inspired Oxygen Intake/Output Intake/Output: Intake & Output 07/14/25 07/15/25 07/16/25 07/17/25 23:59 23:59 23:59 23:59 Intake Total 4766 984 5545 3160 Output Total 600 1100 1700 2375 Balance 690 -350 1700 785 Meds/Results Medications: Active Medications Generic Name Dose Route Start Last Admin Trade Name Freq PRN Reason Stop Dose Admin Acetaminophen 650 mg 07/14/25 13:19 Acetaminophen 325 Mg Tablet PO Q4H PRN Mild Pain (1-3) or Fever Albuterol 2 puff 07/14/25 19:25 Albuterol Sulfate (*Sp) Aerosol 1 Puff INHALATION Q4HRT PRN WHEEZE/SOB Dextrose 12.5 gm 07/14/25 13:19 Dextrose 50% 25 Gm/50 Ml Syringe IV PUSH PRN PRN Hypoglycemia Protocol Empagliflozin 10 mg 07/15/25 09:00 07/16/25 08:51 Empagliflozin 10 Mg Tablet PO 10 mg On Hold: 07/17/25 00:53 DAILY KIMBERLEY Administration Ferrous Sulfate 325 mg 07/15/25 09:00 07/17/25 13:08 Ferrous Sulfate 325 Mg Tablet PO 325 mg TID KIMBERLEY Administration Glucagon 1 mg 07/14/25 13:19 Glucagon For Inj 1 Mg Vial IM PRN PRN Hypoglycemia Protocol Glucose 15 gm 07/14/25 13:19 Glucose Oral Gel 15 Gm Of Glucse In 37.5 Gm Tube PO PRN PRN Hypoglycemia Protocol Dextrose 1,000 mls @ 100 mls/hr 07/14/25 13:19 Dextrose 5% 1,000 Ml IVPB PRN PRN Hypoglycemia Protocol Ceftriaxone Sodium 1 gm/ 50 mls @ 100 mls/hr 07/15/25 14:00 07/17/25 13:56 Sodium Chloride IVPB Infused Q24H KIMBERLEY Infusion Sodium Chloride 1,000 mls @ 125 mls/hr 07/17/25 01:55 07/17/25 11:28 Normal Saline Iv IV CONT 125 mls/hr .Q8H KIMBERLEY Administration Insulin Aspart 2 - 5 units 07/14/25 17:00 07/17/25 11:30 Insulin Aspart (*Bkc) 100 Units/Ml SUB-Q Not Given TIDWM [facility] Protocol Latanoprost 1 drop 07/14/25 21:00 07/16/25 20:08 Latanoprost 0.005% Op Soln 2.5 Ml Btl EACH EYE 1 drop HS KIMBERLEY Administration Metoprolol Succinate 25 mg 07/14/25 21:00 07/16/25 20:05 Metoprolol Succinate Ext Rel 25 Mg Tabcr PO 25 mg On Hold: 07/17/25 00:53 HS KIMBERLEY Administration Midodrine 2.5 mg 07/16/25 13:00 07/17/25 13:08 Midodrine Hcl 2.5 Mg Tablet PO 2.5 mg TID KIMBERLEY Administration Nitroglycerin 0.4 mg 07/14/25 19:24 Nitroglycerin Sl 0.4 Mg Tablet SUBLINGUAL Q5M PRN Chest Pain Ondansetron HCl 4 mg 07/14/25 13:11 07/14/25 22:34 Ondansetron Inj 4 Mg/2 Ml Vial IV PUSH 4 mg Q4H PRN Administration Nausea Oxycodone/Acetaminophen 1 tablet 07/14/25 19:24 07/15/25 20:50 Oxycodone/Acetaminophen (*Crx) 5-325 Mg Tablet PO 1 tablet Q6H PRN Administration Pain Rated 6 or Greater Sacubitril/Valsartan 1 tab 07/15/25 09:00 07/16/25 20:05 Sacubitril/Valsartan 24-26 Mg Tablet PO 1 tab On Hold: 07/17/25 00:53 Q12HR KIMBERLEY Administration Fluticasone/Salmeterol 2 puff 07/14/25 20:00 07/17/25 07:22 Fluticasone/Salmeterol 115-21 Mcg Inhaler 1 Puff INHALATION 2 puff Q12HRT KIMBERLEY Administration Tamsulosin HCl 0.4 mg 07/15/25 09:00 07/16/25 08:50 Tamsulosin Hcl 0.4 Mg Capsule PO 0.4 mg On Hold: 07/17/25 01:38 DAILY KIMBERLEY Administration Radiology Results: ITS Impressions Abdomen/Pelvis CTA 07/14/25 12:36 IMPRESSION: 1. No evidence of active GI bleed or other acute abnormality. Chest X-Ray 07/14/25 13:21 IMPRESSION: 1. Recommend CT chest to better evaluate right midlung opacity. Chest CT 07/14/25 17:50 IMPRESSION: 1. New 2.4 x 2.2 cm pleural-based right upper lobe mass, suspicious for bronchogenic carcinoma. 2: Hiatal hernia with fluid and debris in the esophagus which is mildly thickened, suspicious for esophagitis secondary to reflux. 3: Small pericardial effusion. Abdomen/Pelvis CT 07/17/25 09:31 IMPRESSION: 1. No findings of active GI bleed. 2. Mild gastritis not excluded. 3. Additional findings as above. Labs Labs: Laboratory Results - last 24 hr 07/14/25 07/16/25 07/16/25 11:18 17:10 20:02 WBC RBC Hgb 7.7 L Hct 23.9 L MCV MCH MCHC RDW Plt Count MPV Sodium Potassium Chloride Carbon Dioxide Anion Gap BUN Creatinine Estim Creat Clear Calc Estimated GFR Glucose POC Capillary Glucose 132 H Calcium Magnesium Blood Type A Positive Antibody Screen Negative Crossmatch See Detail 07/17/25 07/17/25 07/17/25 00:15 05:10 07:07 WBC 1.4 L* RBC 2.86 L Hgb 6.8 L* 7.8 L Hct 21.8 L 24.5 L MCV 85.7 MCH 27.3 MCHC 31.8 L RDW 16.2 H Plt Count 162 MPV 9.6 Sodium 133 L Potassium 3.7 Chloride 107 Carbon Dioxide 23 Anion Gap 3 L BUN 7 L D Creatinine 0.56 L Estim Creat Clear Calc 78 Estimated GFR > 60 Glucose 107 POC Capillary Glucose 115 H Calcium 8.3 L Magnesium 2.1 Blood Type Antibody Screen Crossmatch 07/17/25 07/17/25 11:25 16:05 WBC RBC Hgb Hct MCV MCH MCHC RDW Plt Count MPV Sodium Potassium Chloride Carbon Dioxide Anion Gap BUN Creatinine Estim Creat Clear Calc Estimated GFR Glucose POC Capillary Glucose 105 103 Calcium Magnesium Blood Type Antibody Screen Crossmatch Quality VTE Prophylaxis VTE prophylaxis: mechanical ordered
[2025-07-17] MEDS: LATANOPROST 0.005% OP SOLN 2.5 ML BTL 1 DROP EACH EYE (20:24)
[2025-07-18] VITALS (16 sets, daily range): BP systolic 90–137; BP diastolic 47–73; PULSE 70–101; RESP 16–28; TEMP 36.7–37.1; O2SAT 96–100
[2025-07-18] MEDS: SODIUM CHLORIDE 0.9% IV 1,000 ML 125 ML IV CONT ×3 (03:50→18:57)
[2025-07-18 04:51] LABS: Hematocrit 23.9 % (42.0-52.0); Hemoglobin 7.3 g/dL (14.0-18.0); Mean Corpuscular HGB Conc 30.5 g/dl (32-36); Mean Corpuscular Hemoglobin 26.9 pg (26-34); Mean Corpuscular Volume 88.2 fl (80-100); Platelet Count Result 167 k/mm3 (150-375); Red Blood Count 2.71 M/mm3 (4.6-6.20)
[2025-07-18 04:53] LABS: White Blood Count 1.7 K/mm3 (4.5-10.0)
[2025-07-18 05:21] LABS: Anion Gap 3 mmol/L (4-12); Blood Urea Nitrogen 4 mg/dL (9-20); Calcium 7.9 mg/dL (8.4-10.2); Carbon Dioxide 19 mmol/L (22-30); Chloride 111 mmol/L (98-107); Estimated CRCL calculation 89 ml/min; Estimated Glomerular Filt Rate > 60; Glucose 105 mg/dL (65-110); Magnesium 2.1 mg/dL (1.6-2.3); Potassium 3.6 mmol/L (3.4-5.0); Sodium 133 mmol/L (137-145)
[2025-07-18] MEDS: FLUTICASONE/SALMETEROL 115-21 MCG INHALER 1 PUFF 2 PUFF INHALATION ×2 (07:38→20:25)
[2025-07-18] MEDS: MIDODRINE HCL 2.5 MG TABLET PO ×3 (08:38→18:09)
[2025-07-18] MEDS: FERROUS SULFATE 325 MG TABLET PO ×3 (08:38→18:09)
--- NOTE | 2025-07-18 14:22 | WPDGIPROGNO ---
Progress Note: A&P Assessment and Plan (1) Hemorrhage of large intestine due to diverticular disease: Code(s): K57.31 - Diverticulosis of large intestine without perforation or abscess with bleeding Status: Acute Assessment and Plan: colonoscopy noted stigmata of recent bleeding but could not find culprit diverticula repeat CT scan no obvious active bleeding pending transfer to tertiary center, if rebleeding only alternative will be interventional radiology (2) Lower GI bleed: Code(s): K92.2 - Gastrointestinal hemorrhage, unspecified Status: Acute Assessment and Plan: monitor and trend h/h (3) Acute blood loss anemia: Code(s): D62 - Acute posthemorrhagic anemia Status: Acute Assessment and Plan: s/p blood transfusion (4) Leukopenia: Code(s): D72.819 - Decreased white blood cell count, unspecified Status: Acute (5) Hypotension: Code(s): I95.9 - Hypotension, unspecified Status: Acute Assessment and Plan: today BP is stable (6) Cardiomyopathy: Code(s): I42.9 - Cardiomyopathy, unspecified Status: Acute Assessment and Plan: repeat EF 25-30% Subjective Date/time seen: 07/18/25 14:22 Interval history: BP stable today, last BM with old blood it seems that active bleeding has stopped [facility] accepted transfer, awaiting for bed Review of Systems Review of Systems: All systems reviewed & are unremarkable except as noted in HPI and below Exam Narrative: Elderly frail Patient is comfortable, NAD neck: supple HEENT: eyes are clear and none icteric LUNGS:CTA HEART: RR S1S2 ABD: BS+, Soft and nontender Lower extremities: no edema SKIN: pale Neuro: grossly intact. Objective Data Vital Signs Vital Signs: Vital Signs - 24 hr 07/17/25 16:00 07/17/25 16:00 07/17/25 16:00 Temperature 97.6 F Pulse Rate 66 72 71 Respiratory Rate 18 Blood Pressure 101/53 L Pulse Oximetry 98 Oxygen Delivery Room Air Fraction of Inspired Oxygen 07/17/25 18:00 07/17/25 20:00 07/17/25 20:00 Temperature 99.1 F Pulse Rate 85 70 73 Respiratory Rate 16 Blood Pressure 98/44 L Pulse Oximetry 99 99 Oxygen Delivery Room Air Fraction of Inspired Oxygen 07/17/25 20:00 07/17/25 20:16 07/17/25 22:00 Temperature Pulse Rate 75 80 Respiratory Rate Blood Pressure Pulse Oximetry 99 Oxygen Delivery Room Air Fraction of Inspired Oxygen 21 07/18/25 00:00 07/18/25 00:00 07/18/25 00:00 Temperature 98.6 F Pulse Rate 80 74 80 Respiratory Rate 16 Blood Pressure 102/47 L Pulse Oximetry 99 Oxygen Delivery Room Air Fraction of Inspired Oxygen 07/18/25 02:00 07/18/25 03:51 07/18/25 04:00 Temperature 98.4 F Pulse Rate 77 71 72 Respiratory Rate 18 Blood Pressure 104/51 L Pulse Oximetry 99 98 Oxygen Delivery Room Air Fraction of Inspired Oxygen 07/18/25 04:00 07/18/25 06:00 07/18/25 08:00 Temperature 98.0 F Pulse Rate 75 87 91 Respiratory Rate 20 Blood Pressure 112/73 Pulse Oximetry 100 Oxygen Delivery Fraction of Inspired Oxygen 07/18/25 12:00 Temperature 98.1 F Pulse Rate 70 Respiratory Rate 28 H Blood Pressure 90/54 L Pulse Oximetry 100 Oxygen Delivery Fraction of Inspired Oxygen Intake/Output Intake/Output: Intake & Output 07/15/25 07/16/25 07/17/25 07/18/25 23:59 23:59 23:59 23:59 Intake Total 750 3400 5260 3116.7 Output Total 1100 1700 4125 850 Balance -350 1700 1135 2266.7 Meds/Results Medications: Active Medications Generic Name Dose Route Start Last Admin Trade Name Freq PRN Reason Stop Dose Admin Acetaminophen 650 mg 07/14/25 13:19 Acetaminophen 325 Mg Tablet PO Q4H PRN Mild Pain (1-3) or Fever Albuterol 2 puff 07/14/25 19:25 Albuterol Sulfate (*Sp) Aerosol 1 Puff INHALATION Q4HRT PRN WHEEZE/SOB Dextrose 12.5 gm 07/14/25 13:19 Dextrose 50% 25 Gm/50 Ml Syringe IV PUSH PRN PRN Hypoglycemia Protocol Empagliflozin 10 mg 07/15/25 09:00 07/16/25 08:51 Empagliflozin 10 Mg Tablet PO 10 mg On Hold: 07/17/25 00:53 DAILY K[facility] Administration Ferrous Sulfate 325 mg 07/15/25 09:00 07/18/25 11:45 Ferrous Sulfate 325 Mg Tablet PO 325 mg TID KIMBERLEY Administration Glucagon 1 mg 07/14/25 13:19 Glucagon For Inj 1 Mg Vial IM PRN PRN Hypoglycemia Protocol Glucose 15 gm 07/14/25 13:19 Glucose Oral Gel 15 Gm Of Glucse In 37.5 Gm Tube PO PRN PRN Hypoglycemia Protocol Dextrose 1,000 mls @ 100 mls/hr 07/14/25 13:19 Dextrose 5% 1,000 Ml IVPB PRN PRN Hypoglycemia Protocol Ceftriaxone Sodium 1 gm/ 50 mls @ 100 mls/hr 07/15/25 14:00 07/17/25 13:56 Sodium Chloride IVPB Infused Q24H KIMBERLEY Infusion Sodium Chloride 1,000 mls @ 125 mls/hr 07/17/25 01:55 07/18/25 11:44 Normal Saline Iv IV CONT 125 mls/hr .Q8H K[facility]BERLEY Administration Insulin Aspart 2 - 5 units 07/14/25 17:00 07/18/25 13:56 Insulin Aspart (*Bkc) 100 Units/Ml SUB-Q Not Given TIDWM [facility] Protocol Latanoprost 1 drop 07/14/25 21:00 07/17/25 20:24 Latanoprost 0.005% Op Soln 2.5 Ml Btl EACH EYE 1 drop HS K[facility]BERLEY Administration Metoprolol Succinate 25 mg 07/14/25 21:00 07/16/25 20:05 Metoprolol Succinate Ext Rel 25 Mg Tabcr PO 25 mg On Hold: 07/17/25 00:53 HS KIMBERLEY Administration Midodrine 2.5 mg 07/16/25 13:00 07/18/25 11:45 Midodrine Hcl 2.5 Mg Tablet PO 2.5 mg TID KIMBERLEY Administration Nitroglycerin 0.4 mg 07/14/25 19:24 Nitroglycerin Sl 0.4 Mg Tablet SUBLINGUAL Q5M PRN Chest Pain Ondansetron HCl 4 mg 07/14/25 13:11 07/14/25 22:34 Ondansetron Inj 4 Mg/2 Ml Vial IV PUSH 4 mg Q4H PRN Administration Nausea Oxycodone/Acetaminophen 1 tablet 07/14/25 19:24 07/15/25 20:50 Oxycodone/Acetaminophen (*Crx) 5-325 Mg Tablet PO 1 tablet Q6H PRN Administration Pain Rated 6 or Greater Sacubitril/Valsartan 1 tab 07/15/25 09:00 07/16/25 20:05 Sacubitril/Valsartan 24-26 Mg Tablet PO 1 tab On Hold: 07/17/25 00:53 Q12HR K[facility]BERLEY Administration Fluticasone/Salmeterol 2 puff 07/14/25 20:00 07/18/25 07:38 Fluticasone/Salmeterol 115-21 Mcg Inhaler 1 Puff INHALATION 2 puff Q12HRT KIMBERLEY Administration Tamsulosin HCl 0.4 mg 07/15/25 09:00 07/16/25 08:50 Tamsulosin Hcl 0.4 Mg Capsule PO 0.4 mg On Hold: 07/17/25 01:38 DAILY KIMBERLEY Administration Radiology Results: ITS Impressions Abdomen/Pelvis CTA 07/14/25 12:36 IMPRESSION: 1. No evidence of active GI bleed or other acute abnormality. Chest X-Ray 07/14/25 13:21 IMPRESSION: 1. Recommend CT chest to better evaluate right midlung opacity. Chest CT 07/14/25 17:50 IMPRESSION: 1. New 2.4 x 2.2 cm pleural-based right upper lobe mass, suspicious for bronchogenic carcinoma. 2: Hiatal hernia with fluid and debris in the esophagus which is mildly thickened, suspicious for esophagitis secondary to reflux. 3: Small pericardial effusion. Abdomen/Pelvis CT 07/17/25 09:31 IMPRESSION: 1. No findings of active GI bleed. 2. Mild gastritis not excluded. 3. Additional findings as above. Labs Labs: Laboratory Results - last 24 hr 07/17/25 07/17/25 07/18/25 16:05 20:05 04:11 WBC 1.7 L* RBC 2.71 L Hgb 7.3 L Hct 23.9 L MCV 88.2 MCH 26.9 MCHC 30.5 L RDW 16.7 H Plt Count 167 MPV 10.6 H Sodium 133 L Potassium 3.6 Chloride 111 H Carbon Dioxide 19 L Anion Gap 3 L BUN 4 L Creatinine 0.49 L Estim Creat Clear Calc 89 Estimated GFR > 60 Glucose 105 POC Capillary Glucose 103 167 H Calcium 7.9 L Magnesium 2.1 07/18/25 11:31 WBC RBC Hgb Hct MCV MCH MCHC RDW Plt Count MPV Sodium Potassium Chloride Carbon Dioxide Anion Gap BUN Creatinine Estim Creat Clear Calc Estimated GFR Glucose POC Capillary Glucose 110 H Calcium Magnesium
[2025-07-18] MEDS: cefTRIAXone 1 GM in SODIUM CHLORIDE 0.9% IV 50 ML 100 ML IVPB (15:04)
--- NOTE | 2025-07-18 16:23 | P.PNIM_ITS ---
Assessment and Plan Assessment and Plan (1) Lower GI bleed: Code(s): K92.2 - Gastrointestinal hemorrhage, unspecified Status: Acute Assessment and Plan: GI consulted Plan for scope tomorrow Okay for diet now, NPO midnight Bowel prep per GI H&H q.6 (2) UTI (urinary tract infection): Code(s): N39.0 - Urinary tract infection, site not specified Status: Acute Assessment and Plan: IV Rocephin Culture and sensitivity pending (3) Pericardial effusion: Code(s): I31.39 - Other pericardial effusion (noninflammatory) Status: Acute Assessment and Plan: Small pericardial effusion. Echo pending (4) Acute blood loss anemia: Code(s): D62 - Acute posthemorrhagic anemia Status: Acute Assessment and Plan: Brilinta? ? Q.6 are H&H Transfuse for hemoglobin less than 7 or symptomatic No need for transfusion at this time Per cardiology Given patient had his stent placed almost 15 years ago, can stop Brilinta. Recommend continue aspirin 81 mg daily without interruption if possible. However if GI needs to stop aspirin acutely for a 1-2 days during evaluation and treatment of acute GI bleed, that will be okay as platelet half life is about 1 week. Do not hold aspirin for more than 1-2 days to avoid risk of stent thrombosis (5) CHF (congestive heart failure): Code(s): I50.9 - Heart failure, unspecified Status: Acute Assessment and Plan: Patient received 500 mils an ED Echocardiogram pending history of low EF Continue to monitor Currently holding Lasix due to soft blood pressures re-evaluate in a.m. (6) Opacity noted on imaging study: Code(s): R93.89 - Abnormal findings on diagnostic imaging of other specified body structures Status: Acute Assessment and Plan: Right midlung opacity on x-ray CT chest pending-non con due to patient getting a CTA of abdomen pelvis prior New 2.4 x 2.2 cm pleural-based right upper lobe mass, suspicious for bronchogenic carcinoma. With leukopenia Pulmonology consulted Patient told about findings (7) Hypertension: Code(s): I10 - Essential (primary) hypertension Status: Acute Assessment and Plan: Holding antihypertensives as blood pressure is also soft likely due to acute blood loss and dehydration (8) Type 2 diabetes mellitus: Code(s): E11.9 - Type 2 diabetes mellitus without complications Status: Acute Assessment and Plan: Accu-Cheks a.c. 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 on 07/15/25 patient wa seen by GI and had EGD which was normal and there was upper GI bleed, colonoscopy showed Multiple wide-mouth diverticula were present in the ascending colon, in the transverse colon, in the descending colon, and in the sigmoid colon. No definite source or specific diverticulum bleeding, however there is old retained blood throughout. No blood seen coming through the ileo cecal valve. No polyps, neoplasia or colitis, Dr Pulido was concern that patient angiogram to find the source of bleeding and to transfer to [facility] for the procedure, I called the [facility] and spoke with Dr Santiago TURCIOS, he recommended to patient HH after transfusion, if the HH is dropping then he will accept the patient for the transfer, 1st repeated HH was 6.8., 2 hrs after transfusion his HH was 7.9 and 4 hr transfusion his HH is 7.7 suggesting patient is not bleeding, I have ordered another HH at 00:00 hours, again if patient HH drops will call [facility] as instructed by the GI, I did speak with Dr. Valentino and gave update what [facility] has recommended. I have instructed nursing staff to watch of any bleeding and call MD automobile accessories salesperson and or mobile unit assistant. I have also gave updates to Dr. Liao the MD telecommunications cable jointer until 7PM. Patient did have 2 large bloody BM and his hgb dropped to 6.8 and he was given 2 units of PRBC and now his Hgb is 7.8, Called [facility] transfer line, discussed with Dr. 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 will do nuclear study for GI bleed on Saturday and monitor, patient is clinically stable. gave updates to Hermann Ugarte will monitor. patient remains clinically stable, his hgb is stable, no new bleeding, patient is accepted by the [facility], waiting for the bed, will nuclear med study for GI bleeding in the morning. Subjective Date/time seen: 07/18/25 16:23 Interval history: Blood in stool H&P-Narrative: male with past medical history CAD with stents patient on Brilinta, prior upper GI bleed, hypertension, diabetes, CHF, presents the hospital with bright red blood per rectum. Patient states that he had several bowel movements the o ther day and this morning that were bloody. He states that he has had several more bowel movements malaise in the hospital however he is also doing bowel prep for the scope tomorrow. Patient has no complaints of fevers chills nausea or vomiting. Patient's lab work shows leukopenia at 2.0, hemoglobin of 10.9 with previous hemoglobin being 12.5, platelets of 280, sodium of 135, BUN 27, creatinine of 0.68, glucose of 139, UA is cloudy with 2+ blood, 2+ leukocyte esterase, 21-50 rbc's 51-100 wbc's and 4+ bacteria. was consulted for lower GI bleed. CTA abdomen pelvis shows no sign of acute bleeding. Chest x-ray showed right mid lung opacity recommending CT. patient with rectal bleeding, his hgb was 10.9 patient with severe cardiomyopathy wit EF of 15%, patient was seen by the loom cleaner and cleared the patient for colonoscopy and EGD, patient will be seen by the GI and will have the procedure later today, will monitor. on 07/15/25 patient wa seen by GI and had EGD which was normal and there was upper GI bleed, colonoscopy showed Multiple wide-mouth diverticula were present in the ascending colon, in the transverse colon, in the descending colon, and in the sigmoid colon. No definite source or specific diverticulum bleeding, however there is old retained blood throughout. No blood seen coming through the ileo cecal valve. No polyps, neoplasia or colitis, Dr Pulido was concern that patient angiogram to find the source of bleeding and to transfer to [facility] for the procedure, I called the [facility] and spoke with Dr Santiago TURCIOS, he recommended to patient HH after transfusion, if the HH is dropping then he will accept the patient for the transfer, 1st repeated HH was 6.8., 2 hrs after transfusion his HH was 7.9 and 4 hr transfusion his HH is 7.7 suggesting patient is not bleeding, I have ordered another HH at 00:00 hours, again if patient HH drops will call [facility] as instructed by the GI, I did speak with Dr. Valentino and gave update what [facility] has recommended. Patient did have 2 large bloody BM and his hgb dropped to 6.8 and he was given 2 units of PRBC and now his Hgb is 7.8, Called [facility] transfer line, discussed with Dr. 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 will do nuclear study for GI bleed on Saturday and monitor, patient is clinically stable. gave updates to Hermann Ugarte will monitor. patient remains clinically stable, his hgb is stable, no new bleeding, patient is accepted by the [facility], waiting for the bed, will nuclear med study for GI bleeding in the morning. Review of Systems Review of Systems: A complete review of systems was performed and pertinent positives are reported in the HPI. Exam Narrative: Elderly frail Patient is comfortable, NAD HEENT: eyes are clear and none icteric LUNGS:CTA HEART: RR S1S2 ABD: BS+, Soft and nontender Lower extremities: no edema SKIN: nonjaundiced Neuro: grossly intact. Objective Data Vital Signs Vital Signs: Vital Signs - 24 hr 07/17/25 18:00 07/17/25 20:00 07/17/25 20:00 Temperature 37.3 C Pulse Rate 85 70 73 Respiratory Rate 16 Blood Pressure 98/44 L Pulse Oximetry 99 99 Oxygen Delivery Room Air Fraction of Inspired Oxygen 07/17/25 20:00 07/17/25 20:16 07/17/25 22:00 Temperature Pulse Rate 75 80 Respiratory Rate Blood Pressure Pulse Oximetry 99 Oxygen Delivery Room Air Fraction of Inspired Oxygen 21 07/18/25 00:00 07/18/25 00:00 07/18/25 00:00 Temperature 37.0 C Pulse Rate 80 74 80 Respiratory Rate 16 Blood Pressure 102/47 L Pulse Oximetry 99 Oxygen Delivery Room Air Fraction of Inspired Oxygen 07/18/25 02:00 07/18/25 03:51 07/18/25 04:00 Temperature 36.9 C Pulse Rate 77 71 72 Respiratory Rate 18 Blood Pressure 104/51 L Pulse Oximetry 99 98 Oxygen Delivery Room Air Fraction of Inspired Oxygen 07/18/25 04:00 07/18/25 06:00 07/18/25 08:00 Temperature 36.7 C Pulse Rate 75 87 91 Respiratory Rate 20 Blood Pressure 112/73 Pulse Oximetry 100 Oxygen Delivery Fraction of Inspired Oxygen 07/18/25 08:00 07/18/25 08:00 07/18/25 10:00 Temperature Pulse Rate 101 H 72 98 Respiratory Rate Blood Pressure Pulse Oximetry Oxygen Delivery Room Air Fraction of Inspired Oxygen 07/18/25 12:00 07/18/25 12:00 07/18/25 12:00 Temperature 36.7 C Pulse Rate 70 78 72 Respiratory Rate 28 H Blood Pressure 90/54 L Pulse Oximetry 100 Oxygen Delivery Room Air Fraction of Inspired Oxygen 07/18/25 14:00 Temperature Pulse Rate 85 Respiratory Rate Blood Pressure Pulse Oximetry Oxygen Delivery Fraction of Inspired Oxygen Intake/Output Intake/Output: Intake & Output 07/15/25 07/16/25 07/17/25 07/18/25 23:59 23:59 23:59 23:59 Intake Total 750 3400 5260 3166.7 Output Total 1100 1700 4125 850 Balance -350 1700 1135 2316.7 Meds/Results Medications: Active Medications Generic Name Dose Route Start Last Admin Trade Name Freq PRN Reason Stop Dose Admin Acetaminophen 650 mg 07/14/25 13:19 Acetaminophen 325 Mg Tablet PO Q4H PRN Mild Pain (1-3) or Fever Albuterol 2 puff 07/14/25 19:25 Albuterol Sulfate (*Sp) Aerosol 1 Puff INHALATION Q4HRT PRN WHEEZE/SOB Dextrose 12.5 gm 07/14/25 13:19 Dextrose 50% 25 Gm/50 Ml Syringe IV PUSH PRN PRN Hypoglycemia Protocol Empagliflozin 10 mg 07/15/25 09:00 07/16/25 08:51 Empagliflozin 10 Mg Tablet PO 10 mg On Hold: 07/17/25 00:53 DAILY KIMBERLEY Administration Ferrous Sulfate 325 mg 07/15/25 09:00 07/18/25 11:45 Ferrous Sulfate 325 Mg Tablet PO 325 mg TID KIMBERLEY Administration Glucagon 1 mg 07/14/25 13:19 Glucagon For Inj 1 Mg Vial IM PRN PRN Hypoglycemia Protocol Glucose 15 gm 07/14/25 13:19 Glucose Oral Gel 15 Gm Of Glucse In 37.5 Gm Tube PO PRN PRN Hypoglycemia Protocol Dextrose 1,000 mls @ 100 mls/hr 07/14/25 13:19 Dextrose 5% 1,000 Ml IVPB PRN PRN Hypoglycemia Protocol Ceftriaxone Sodium 1 gm/ 50 mls @ 100 mls/hr 07/15/25 14:00 07/18/25 15:34 Sodium Chloride IVPB Infused Q24H KIMBERLEY Infusion Sodium Chloride 1,000 mls @ 125 mls/hr 07/17/25 01:55 07/18/25 11:44 Normal Saline Iv IV CONT 125 mls/hr .Q8H KIMBERLEY Administration Insulin Aspart 2 - 5 units 07/14/25 17:00 07/18/25 13:56 Insulin Aspart (*Bkc) 100 Units/Ml SUB-Q Not Given TIDWM KIMBERLEY Protocol Latanoprost 1 drop 07/14/25 21:00 07/17/25 20:24 Latanoprost 0.005% Op Soln 2.5 Ml Btl EACH EYE 1 drop HS KIMBERLEY Administration Metoprolol Succinate 25 mg 07/14/25 21:00 07/16/25 20:05 Metoprolol Succinate Ext Rel 25 Mg Tabcr PO 25 mg On Hold: 07/17/25 00:53 HS KIMBERLEY Administration Midodrine 2.5 mg 07/16/25 13:00 07/18/25 11:45 Midodrine Hcl 2.5 Mg Tablet PO 2.5 mg TID KIMBERLEY Administration Nitroglycerin 0.4 mg 07/14/25 19:24 Nitroglycerin Sl 0.4 Mg Tablet SUBLINGUAL Q5M PRN Chest Pain Ondansetron HCl 4 mg 07/14/25 13:11 07/14/25 22:34 Ondansetron Inj 4 Mg/2 Ml Vial IV PUSH 4 mg Q4H PRN Administration Nausea Oxycodone/Acetaminophen 1 tablet 07/14/25 19:24 07/15/25 20:50 Oxycodone/Acetaminophen (*Crx) 5-325 Mg Tablet PO 1 tablet Q6H PRN Administration Pain Rated 6 or Greater Sacubitril/Valsartan 1 tab 07/15/25 09:00 07/16/25 20:05 Sacubitril/Valsartan 24-26 Mg Tablet PO 1 tab On Hold: 07/17/25 00:53 Q12HR KIMBERLEY Administration Fluticasone/Salmeterol 2 puff 07/14/25 20:00 07/18/25 07:38 Fluticasone/Salmeterol 115-21 Mcg Inhaler 1 Puff INHALATION 2 puff Q12HRT KIMBERLEY Administration Tamsulosin HCl 0.4 mg 07/15/25 09:00 07/16/25 08:50 Tamsulosin Hcl 0.4 Mg Capsule PO 0.4 mg On Hold: 07/17/25 01:38 DAILY KIMBERLEY Administration Radiology Results: ITS Impressions Abdomen/Pelvis CTA 07/14/25 12:36 IMPRESSION: 1. No evidence of active GI bleed or other acute abnormality. Chest X-Ray 07/14/25 13:21 IMPRESSION: 1. Recommend CT chest to better evaluate right midlung opacity. Chest CT 07/14/25 17:50 IMPRESSION: 1. New 2.4 x 2.2 cm pleural-based right upper lobe mass, suspicious for bronchogenic carcinoma. 2: Hiatal hernia with fluid and debris in the esophagus which is mildly thickened, suspicious for esophagitis secondary to reflux. 3: Small pericardial effusion. Abdomen/Pelvis CT 07/17/25 09:31 IMPRESSION: 1. No findings of active GI bleed. 2. Mild gastritis not excluded. 3. Additional findings as above. Labs Labs: Laboratory Results - last 24 hr 07/17/25 07/18/25 07/18/25 20:05 04:11 11:31 WBC 1.7 L* RBC 2.71 L Hgb 7.3 L Hct 23.9 L MCV 88.2 MCH 26.9 MCHC 30.5 L RDW 16.7 H Plt Count 167 MPV 10.6 H Sodium 133 L Potassium 3.6 Chloride 111 H Carbon Dioxide 19 L Anion Gap 3 L BUN 4 L Creatinine 0.49 L Estim Creat Clear Calc 89 Estimated GFR > 60 Glucose 105 POC Capillary Glucose 167 H 110 H Calcium 7.9 L Magnesium 2.1 07/18/25 16:10 WBC RBC Hgb Hct MCV MCH MCHC RDW Plt Count MPV Sodium Potassium Chloride Carbon Dioxide Anion Gap BUN Creatinine Estim Creat Clear Calc Estimated GFR Glucose POC Capillary Glucose 217 H Calcium Magnesium Quality VTE Prophylaxis VTE prophylaxis: mechanical ordered
[2025-07-18] MEDS: INSULIN ASPART (*BKC) 100 UNITS/ML SUB-Q (18:09)
[2025-07-18] MEDS: LATANOPROST 0.005% OP SOLN 2.5 ML BTL 1 DROP EACH EYE (20:48)
[2025-07-19] VITALS (15 sets, daily range): BP systolic 107–120; BP diastolic 52–75; PULSE 70–100; RESP 16–26; TEMP 36.6–37.1; O2SAT 90–98
[2025-07-19 04:14] LABS: Hematocrit 25.1 % (42.0-52.0); Hemoglobin 7.8 g/dL (14.0-18.0); Mean Corpuscular HGB Conc 31.1 g/dl (32-36); Mean Corpuscular Hemoglobin 27.3 pg (26-34); Mean Corpuscular Volume 87.8 fl (80-100); Platelet Count Result 197 k/mm3 (150-375); Red Blood Count 2.86 M/mm3 (4.6-6.20)
[2025-07-19 04:19] LABS: White Blood Count 1.7 K/mm3 (4.5-10.0)
[2025-07-19 04:29] LABS: Anion Gap 2 mmol/L (4-12); Blood Urea Nitrogen 4 mg/dL (9-20); Calcium 8.1 mg/dL (8.4-10.2); Carbon Dioxide 20 mmol/L (22-30); Chloride 112 mmol/L (98-107); Estimated CRCL calculation 96 ml/min; Estimated Glomerular Filt Rate > 60; Glucose 113 mg/dL (65-110); Magnesium 1.9 mg/dL (1.6-2.3); Potassium 3.4 mmol/L (3.4-5.0); Sodium 134 mmol/L (137-145)
--- NOTE | 2025-07-19 05:19 | PC.NURSE ---
Family called and updated on pt moved from to and updated on pt condition
[2025-07-19] MEDS: SODIUM CHLORIDE 0.9% IV 1,000 ML 125 ML IV CONT ×3 (06:14→21:06)
[2025-07-19] MEDS: FLUTICASONE/SALMETEROL 115-21 MCG INHALER 1 PUFF 2 PUFF INHALATION ×2 (08:20→20:20)
[2025-07-19] MEDS: FERROUS SULFATE 325 MG TABLET PO ×3 (08:46→16:53)
[2025-07-19] MEDS: MIDODRINE HCL 2.5 MG TABLET PO ×3 (08:46→16:53)
[2025-07-19] MEDS: cefTRIAXone 1 GM in SODIUM CHLORIDE 0.9% IV 50 ML 100 ML IVPB (14:14)
--- NOTE | 2025-07-19 15:35 | WPDGIPROGNO ---
Progress Note: A&P Assessment and Plan (1) Hemorrhage of large intestine due to diverticular disease: Code(s): K57.31 - Diverticulosis of large intestine without perforation or abscess with bleeding Status: Acute Assessment and Plan: colonoscopy noted stigmata of recent bleeding but could not find culprit diverticula repeat CT scan no obvious active bleeding and GIB scan without active bleeding h/h low but has been stable for last 2 days pending transfer to tertiary center in case of rebleeding for which only alternative will be interventional radiology (2) Lower GI bleed: Code(s): K92.2 - Gastrointestinal hemorrhage, unspecified Status: Acute Assessment and Plan: monitor and trend h/h stable for last 2 days (3) Acute blood loss anemia: Code(s): D62 - Acute posthemorrhagic anemia Status: Acute Assessment and Plan: no more need of blood transfusion (4) Leukopenia: Code(s): D72.819 - Decreased white blood cell count, unspecified Status: Acute (5) Hypotension: Code(s): I95.9 - Hypotension, unspecified Status: Acute Assessment and Plan: BP normalized for last 2 days (6) Cardiomyopathy: Code(s): I42.9 - Cardiomyopathy, unspecified Status: Acute Assessment and Plan: repeat EF 25-30% Subjective Date/time seen: 07/19/25 15:35 Interval history: BP is stable, no more signs of bleeding today completed GI bleed scan and negative Review of Systems Review of Systems: All systems reviewed & are unremarkable except as noted in HPI and below Exam Narrative: Elderly frail Patient is comfortable, NAD neck: supple HEENT: eyes are clear and none icteric LUNGS:CTA HEART: RR S1S2 ABD: BS+, Soft and nontender Lower extremities: no edema SKIN: pale Neuro: grossly intact. Objective Data Vital Signs Vital Signs: Vital Signs - 24 hr 07/18/25 16:00 07/18/25 16:00 07/18/25 16:00 Temperature 98.8 F Pulse Rate 83 80 72 Respiratory Rate 24 H Blood Pressure 133/60 Pulse Oximetry 98 Oxygen Delivery Room Air Fraction of Inspired Oxygen 07/18/25 18:00 07/18/25 20:00 07/18/25 20:00 Temperature Pulse Rate 97 74 80 Respiratory Rate Blood Pressure Pulse Oximetry Oxygen Delivery Room Air Fraction of Inspired Oxygen 07/18/25 20:25 07/18/25 20:26 07/18/25 21:27 Temperature 98.1 F Pulse Rate 75 74 Respiratory Rate 18 19 Blood Pressure 137/67 Pulse Oximetry 98 96 Oxygen Delivery Room Air Fraction of Inspired Oxygen 21 07/18/25 22:00 07/19/25 00:00 07/19/25 00:00 Temperature Pulse Rate 86 73 71 Respiratory Rate Blood Pressure Pulse Oximetry Oxygen Delivery Room Air Fraction of Inspired Oxygen 07/19/25 00:10 07/19/25 02:00 07/19/25 02:54 Temperature 98.7 F Pulse Rate 73 82 82 Respiratory Rate 22 H Blood Pressure 119/67 Pulse Oximetry 98 Oxygen Delivery Room Air Fraction of Inspired Oxygen 07/19/25 04:00 07/19/25 04:33 07/19/25 06:00 Temperature 98.0 F Pulse Rate 73 70 70 Respiratory Rate 16 Blood Pressure 120/59 L Pulse Oximetry 90 Oxygen Delivery Fraction of Inspired Oxygen 07/19/25 08:00 07/19/25 08:00 07/19/25 08:00 Temperature 98.0 F Pulse Rate 99 94 72 Respiratory Rate 26 H Blood Pressure 113/61 Pulse Oximetry 98 Oxygen Delivery Room Air Fraction of Inspired Oxygen 07/19/25 08:21 07/19/25 08:21 07/19/25 10:00 Temperature Pulse Rate 92 92 88 Respiratory Rate 20 20 Blood Pressure Pulse Oximetry 95 Oxygen Delivery Room Air Fraction of Inspired Oxygen Intake/Output Intake/Output: Intake & Output 07/16/25 07/17/25 07/18/25 07/19/25 23:59 23:59 23:59 23:59 Intake Total 3400 5260 4728.8 3191 Output Total 1700 4125 2800 900 Balance 1700 1135 1928.8 2291 Meds/Results Medications: Active Medications Generic Name Dose Route Start Last Admin Trade Name Freq PRN Reason Stop Dose Admin Acetaminophen 650 mg 07/14/25 13:19 Acetaminophen 325 Mg Tablet PO Q4H PRN Mild Pain (1-3) or Fever Albuterol 2 puff 07/14/25 19:25 Albuterol Sulfate (*Sp) Aerosol 1 Puff INHALATION Q4HRT PRN WHEEZE/SOB Dextrose 12.5 gm 07/14/25 13:19 Dextrose 50% 25 Gm/50 Ml Syringe IV PUSH PRN PRN Hypoglycemia Protocol Empagliflozin 10 mg 07/15/25 09:00 07/16/25 08:51 Empagliflozin 10 Mg Tablet PO 10 mg On Hold: 07/17/25 00:53 DAILY KIMBERLEY Administration Ferrous Sulfate 325 mg 07/15/25 09:00 07/19/25 14:14 Ferrous Sulfate 325 Mg Tablet PO 325 mg TID KIMBERLEY Administration Glucagon 1 mg 07/14/25 13:19 Glucagon For Inj 1 Mg Vial IM PRN PRN Hypoglycemia Protocol Glucose 15 gm 07/14/25 13:19 Glucose Oral Gel 15 Gm Of Glucse In 37.5 Gm Tube PO PRN PRN Hypoglycemia Protocol Dextrose 1,000 mls @ 100 mls/hr 07/14/25 13:19 Dextrose 5% 1,000 Ml IVPB PRN PRN Hypoglycemia Protocol Sodium Chloride 1,000 mls @ 125 mls/hr 07/17/25 01:55 07/19/25 14:15 Normal Saline Iv IV CONT 125 mls/hr .Q8H KIMBERLEY Administration Insulin Aspart 2 - 5 units 07/14/25 17:00 07/19/25 13:56 Insulin Aspart (*Bkc) 100 Units/Ml SUB-Q Not Given TIDWM KIMBERLEY Protocol Latanoprost 1 drop 07/14/25 21:00 07/18/25 20:48 Latanoprost 0.005% Op Soln 2.5 Ml Btl EACH EYE 1 drop HS KIMBERLEY Administration Metoprolol Succinate 25 mg 07/14/25 21:00 07/16/25 20:05 Metoprolol Succinate Ext Rel 25 Mg Tabcr PO 25 mg On Hold: 07/17/25 00:53 HS KIMBERLEY Administration Midodrine 2.5 mg 07/16/25 13:00 07/19/25 14:14 Midodrine Hcl 2.5 Mg Tablet PO 2.5 mg TID KIMBERLEY Administration Nitroglycerin 0.4 mg 07/14/25 19:24 Nitroglycerin Sl 0.4 Mg Tablet SUBLINGUAL Q5M PRN Chest Pain Ondansetron HCl 4 mg 07/14/25 13:11 07/14/25 22:34 Ondansetron Inj 4 Mg/2 Ml Vial IV PUSH 4 mg Q4H PRN Administration Nausea Oxycodone/Acetaminophen 1 tablet 07/14/25 19:24 07/15/25 20:50 Oxycodone/Acetaminophen (*Crx) 5-325 Mg Tablet PO 1 tablet Q6H PRN Administration Pain Rated 6 or Greater Sacubitril/Valsartan 1 tab 07/15/25 09:00 07/16/25 20:05 Sacubitril/Valsartan 24-26 Mg Tablet PO 1 tab On Hold: 07/17/25 00:53 Q12HR KIMBERLEY Administration Fluticasone/Salmeterol 2 puff 07/14/25 20:00 07/19/25 08:20 Fluticasone/Salmeterol 115-21 Mcg Inhaler 1 Puff INHALATION 2 puff Q12HRT KIMBERLEY Administration Tamsulosin HCl 0.4 mg 07/15/25 09:00 07/16/25 08:50 Tamsulosin Hcl 0.4 Mg Capsule PO 0.4 mg On Hold: 07/17/25 01:38 DAILY KIMBERLEY Administration Radiology Results: ITS Impressions Abdomen/Pelvis CTA 07/14/25 12:36 IMPRESSION: 1. No evidence of active GI bleed or other acute abnormality. Chest X-Ray 07/14/25 13:21 IMPRESSION: 1. Recommend CT chest to better evaluate right midlung opacity. Chest CT 07/14/25 17:50 IMPRESSION: 1. New 2.4 x 2.2 cm pleural-based right upper lobe mass, suspicious for bronchogenic carcinoma. 2: Hiatal hernia with fluid and debris in the esophagus which is mildly thickened, suspicious for esophagitis secondary to reflux. 3: Small pericardial effusion. Abdomen/Pelvis CT 07/17/25 09:31 IMPRESSION: 1. No findings of active GI bleed. 2. Mild gastritis not excluded. 3. Additional findings as above. GI Bleed Scan Nuclear Medicine 07/19/25 13:12 IMPRESSION: No evidence of GI bleed. Labs Labs: Laboratory Results - last 24 hr 07/18/25 07/19/25 07/19/25 16:10 03:57 07:23 WBC 1.7 L* RBC 2.86 L Hgb 7.8 L Hct 25.1 L MCV 87.8 MCH 27.3 MCHC 31.1 L RDW 16.8 H Plt Count 197 MPV 10.7 H Sodium 134 L Potassium 3.4 Chloride 112 H Carbon Dioxide 20 L Anion Gap 2 L BUN 4 L Creatinine 0.45 L Estim Creat Clear Calc 96 Estimated GFR > 60 Glucose 113 H POC Capillary Glucose 217 H 117 H Calcium 8.1 L Magnesium 1.9 07/19/25 13:31 WBC RBC Hgb Hct MCV MCH MCHC RDW Plt Count MPV Sodium Potassium Chloride Carbon Dioxide Anion Gap BUN Creatinine Estim Creat Clear Calc Estimated GFR Glucose POC Capillary Glucose 123 H Calcium Magnesium
[2025-07-19] MEDS: INSULIN ASPART (*BKC) 100 UNITS/ML SUB-Q (16:51)
--- NOTE | 2025-07-19 16:59 | P.PNIM_ITS ---
Assessment and Plan Assessment and Plan (1) Lower GI bleed: Code(s): K92.2 - Gastrointestinal hemorrhage, unspecified Status: Acute Assessment and Plan: GI consulted Plan for scope tomorrow Okay for diet now, NPO midnight Bowel prep per GI H&H q.6 (2) UTI (urinary tract infection): Code(s): N39.0 - Urinary tract infection, site not specified Status: Acute Assessment and Plan: IV Rocephin Culture and sensitivity pending (3) Pericardial effusion: Code(s): I31.39 - Other pericardial effusion (noninflammatory) Status: Acute Assessment and Plan: Small pericardial effusion. Echo pending (4) Acute blood loss anemia: Code(s): D62 - Acute posthemorrhagic anemia Status: Acute Assessment and Plan: Brilinta? ? Q.6 are H&H Transfuse for hemoglobin less than 7 or symptomatic No need for transfusion at this time Per cardiology Given patient had his stent placed almost 15 years ago, can stop Brilinta. Recommend continue aspirin 81 mg daily without interruption if possible. However if GI needs to stop aspirin acutely for a 1-2 days during evaluation and treatment of acute GI bleed, that will be okay as platelet half life is about 1 week. Do not hold aspirin for more than 1-2 days to avoid risk of stent thrombosis (5) CHF (congestive heart failure): Code(s): I50.9 - Heart failure, unspecified Status: Acute Assessment and Plan: Patient received 500 mils an ED Echocardiogram pending history of low EF Continue to monitor Currently holding Lasix due to soft blood pressures re-evaluate in a.m. (6) Opacity noted on imaging study: Code(s): R93.89 - Abnormal findings on diagnostic imaging of other specified body structures Status: Acute Assessment and Plan: Right midlung opacity on x-ray CT chest pending-non con due to patient getting a CTA of abdomen pelvis prior New 2.4 x 2.2 cm pleural-based right upper lobe mass, suspicious for bronchogenic carcinoma. With leukopenia Pulmonology consulted Patient told about findings (7) Hypertension: Code(s): I10 - Essential (primary) hypertension Status: Acute Assessment and Plan: Holding antihypertensives as blood pressure is also soft likely due to acute blood loss and dehydration (8) Type 2 diabetes mellitus: Code(s): E11.9 - Type 2 diabetes mellitus without complications Status: Acute Assessment and Plan: Accu-Cheks a.c. 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 on 07/15/25 patient wa seen by GI and had EGD which was normal and there was upper GI bleed, colonoscopy showed Multiple wide-mouth diverticula were present in the ascending colon, in the transverse colon, in the descending colon, and in the sigmoid colon. No definite source or specific diverticulum bleeding, however there is old retained blood throughout. No blood seen coming through the ileo cecal valve. No polyps, neoplasia or colitis, Dr Pulido was concern that patient angiogram to find the source of bleeding and to transfer to [facility] for the procedure, I called the [facility] and spoke with Dr Santiago TURCIOS, he recommended to patient HH after transfusion, if the HH is dropping then he will accept the patient for the transfer, 1st repeated HH was 6.8., 2 hrs after transfusion his HH was 7.9 and 4 hr transfusion his HH is 7.7 suggesting patient is not bleeding, I have ordered another HH at 00:00 hours, again if patient HH drops will call [facility] [place] as instructed by the GI, I did speak with Dr. Valentino and gave update what [facility] has recommended. I have instructed nursing staff to watch of any bleeding and call MD regional sales manager and or control technician. I have also gave updates to Dr. Liao the MD salon customer experience specialist until 7PM. Patient did have 2 large bloody BM and his hgb dropped to 6.8 and he was given 2 units of PRBC and now his Hgb is 7.8, Called [place] transfer line, discussed with Dr. 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 will do nuclear study for GI bleed on Saturday and monitor, patient is clinically stable. gave updates to Hermann Ugarte will monitor. patient remains clinically stable, his hgb is stable, no new bleeding, patient is accepted by the [facility], waiting for the bed, today patient nuclear med study for GI bleeding and it was negative for any bleeding. Subjective Date/time seen: 07/19/25 16:59 Interval history: Blood in stool H&P-Narrative: male with past medical history CAD with stents patient on Brilinta, prior upper GI bleed, hypertension, diabetes, CHF, presents the hospital with bright red blood per rectum. Patient states that he had several bowel movements the other day and this morning that were bloody. He states that he has had several more bowel movements malaise in the hospital however he is also doing bowel prep for the scope tomorrow. Patient has no complaints of fevers chills nausea or vomiting. Patient's lab work shows leukopenia at 2.0, hemoglobin of 10.9 with previous hemoglobin being 12.5, platelets of 280, sodium of 135, BUN 27, creatinine of 0.68, glucose of 139, UA is cloudy with 2+ blood, 2+ leukocyte esterase, 21-50 rbc's 51-100 wbc's and 4+ bacteria. was consulted for lower GI bleed. CTA abdomen pelvis shows no sign of acute bleeding. Chest x-ray showed right mid lung opacity recommending CT. patient with rectal bleeding, his hgb was 10.9 patient with severe cardiomyopathy wit EF of 15%, patient was seen by the brick setter operator and cleared the patient for colonoscopy and EGD, patient will be seen by the GI and will have the procedure later today, will monitor. on 07/15/25 patient wa seen by GI and had EGD which was normal and there was upper GI bleed, colonoscopy showed Multiple wide-mouth diverticula were present in the ascending colon, in the transverse colon, in the descending colon, and in the sigmoid colon. No definite source or specific diverticulum bleeding, however there is old retained blood throughout. No blood seen coming through the ileo cecal valve. No polyps, neopla maria de jesus or colitis, Dr Pulido was concern that patient angiogram to find the source of bleeding and to transfer to [facility] for the procedure, I called the [facility] and spoke with Dr Santiago TURCIOS, he recommended to patient HH after transfusion, if the HH is dropping then he will accept the patient for the transfer, 1st repeated HH was 6.8., 2 hrs after transfusion his HH was 7.9 and 4 hr transfusion his HH is 7.7 suggesting patient is not bleeding, I have ordered another HH at 00:00 hours, again if patient HH drops will call [facility] [place] as instructed by the GI, I did speak with Dr. Valentino and gave update what [facility] has recommended. Patient did have 2 large bloody BM and his hgb dropped to 6.8 and he was given 2 units of PRBC and now his Hgb is 7.8, Called [place] transfer line, discussed with Dr. 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 will do nuclear study for GI bleed on Saturday and monitor, patient is clinically stable. gave updates to Hermann Ugarte will monitor. patient remains clinically stable, his hgb is stable, no new bleeding, patient is accepted by the [facility], waiting for the bed, today patient nuclear med study for GI bleeding and it was negative for any bleeding. Review of Systems Review of Systems: A complete review of systems was performed and pertinent positives are reported in the HPI. Exam Narrative: Elderly frail Patient is comfortable, NAD HEENT: eyes are clear and none icteric LUNGS:CTA HEART: RR S1S2 ABD: BS+, Soft and nontender Lower extremities: no edema SKIN: nonjaundiced Neuro: grossly intact. Objective Data Vital Signs Vital Signs: Vital Signs - 24 hr 07/18/25 18:00 07/18/25 20:00 07/18/25 20:00 Temperature Pulse Rate 97 74 80 Respiratory Rate Blood Pressure Pulse Oximetry Oxygen Delivery Room Air Fraction of Inspired Oxygen 07/18/25 20:25 07/18/25 20:26 07/18/25 21:27 Temperature 36.7 C Pulse Rate 75 74 Respiratory Rate 18 19 Blood Pressure 137/67 Pulse Oximetry 98 96 Oxygen Delivery Room Air Fraction of Inspired Oxygen 21 07/18/25 22:00 07/19/25 00:00 07/19/25 00:00 Temperature Pulse Rate 86 73 71 Respiratory Rate Blood Pressure Pulse Oximetry Oxygen Delivery Room Air Fraction of Inspired Oxygen 07/19/25 00:10 07/19/25 02:00 07/19/25 02:54 Temperature 37.1 C Pulse Rate 73 82 82 Respiratory Rate 22 H Blood Pressure 119/67 Pulse Oximetry 98 Oxygen Delivery Room Air Fraction of Inspired Oxygen 07/19/25 04:00 07/19/25 04:33 07/19/25 06:00 Temperature 36.7 C Pulse Rate 73 70 70 Respiratory Rate 16 Blood Pressure 120/59 L Pulse Oximetry 90 Oxygen Delivery Fraction of Inspired Oxygen 07/19/25 08:00 07/19/25 08:00 07/19/25 08:00 Temperature 36.7 C Pulse Rate 99 94 72 Respiratory Rate 26 H Blood Pressure 113/61 Pulse Oximetry 98 Oxygen Delivery Room Air Fraction of Inspired Oxygen 07/19/25 08:21 07/19/25 08:21 07/19/25 10:00 Temperature Pulse Rate 92 92 88 Respiratory Rate 20 20 Blood Pressure Pulse Oximetry 95 Oxygen Delivery Room Air Fraction of Inspired Oxygen 07/19/25 12:00 07/19/25 12:00 07/19/25 14:00 Temperature Pulse Rate 72 70 Respiratory Rate Blood Pressure Pulse Oximetry Oxygen Delivery Room Air Fraction of Inspired Oxygen 07/19/25 16:00 07/19/25 16:00 07/19/25 16:00 Temperature 36.7 C Pulse Rate 100 90 Respiratory Rate 20 Blood Pressure 111/75 Pulse Oximetry 97 Oxygen Delivery Room Air Fraction of Inspired Oxygen Intake/Output Intake/Output: Intake & Output 12/01/0307/17/25 07/18/25 07/19/25 23:59 23:59 23:59 23:59 Intake Total 3400 5260 4728.8 3191 Output Total 1700 4125 2800 900 Balance 1700 1135 1928.8 2291 Meds/Results Medications: Active Medications Generic Name Dose Route Start Last Admin Trade Name Freq PRN Reason Stop Dose Admin Acetaminophen 650 mg 07/14/25 13:19 Acetaminophen 325 Mg Tablet PO Q4H PRN Mild Pain (1-3) or Fever Albuterol 2 puff 07/14/25 19:25 Albuterol Sulfate (*Sp) Aerosol 1 Puff INHALATION Q4HRT PRN WHEEZE/SOB Dextrose 12.5 gm 07/14/25 13:19 Dextrose 50% 25 Gm/50 Ml Syringe IV PUSH PRN PRN Hypoglycemia Protocol Empagliflozin 10 mg 07/15/25 09:00 07/16/25 08:51 Empagliflozin 10 Mg Tablet PO 10 mg On Hold: 07/17/25 00:53 DAILY KIMBERLEY Administration Ferrous Sulfate 325 mg 07/15/25 09:00 07/19/25 16:53 Ferrous Sulfate 325 Mg Tablet PO 325 mg TID KIMBERLEY Administration Glucagon 1 mg 07/14/25 13:19 Glucagon For Inj 1 Mg Vial IM PRN PRN Hypoglycemia Protocol Glucose 15 gm 07/14/25 13:19 Glucose Oral Gel 15 Gm Of Glucse In 37.5 Gm Tube PO PRN PRN Hypoglycemia Protocol Dextrose 1,000 mls @ 100 mls/hr 07/14/25 13:19 Dextrose 5% 1,000 Ml IVPB PRN PRN Hypoglycemia Protocol Sodium Chloride 1,000 mls @ 125 mls/hr 07/17/25 01:55 07/19/25 14:15 Normal Saline Iv IV CONT 125 mls/hr .Q8H KIMBERLEY Administration Insulin Aspart 2 - 5 units 07/14/25 17:00 07/19/25 16:51 Insulin Aspart (*Bkc) 100 Units/Ml SUB-Q 2 units TIDWM KIMBERLEY Administration Protocol Latanoprost 1 drop 07/14/25 21:00 07/18/25 20:48 Latanoprost 0.005% Op Soln 2.5 Ml Btl EACH EYE 1 drop HS KIMBERLEY Administration Metoprolol Succinate 25 mg 07/14/25 21:00 07/16/25 20:05 Metoprolol Succinate Ext Rel 25 Mg Tabcr PO 25 mg On Hold: 07/17/25 00:53 HS KIMBERLEY Administration Midodrine 2.5 mg 07/16/25 13:00 07/19/25 16:53 Midodrine Hcl 2.5 Mg Tablet PO 2.5 mg TID KIMBERLEY Administration Nitroglycerin 0.4 mg 07/14/25 19:24 Nitroglycerin Sl 0.4 Mg Tablet SUBLINGUAL Q5M PRN Chest Pain Ondansetron HCl 4 mg 07/14/25 13:11 07/14/25 22:34 Ondansetron Inj 4 Mg/2 Ml Vial IV PUSH 4 mg Q4H PRN Administration Nausea Oxycodone/Acetaminophen 1 tablet 07/14/25 19:24 07/15/25 20:50 Oxycodone/Acetaminophen (*Crx) 5-325 Mg Tablet PO 1 tablet Q6H PRN Administration Pain Rated 6 or Greater Sacubitril/Valsartan 1 tab 07/15/25 09:00 07/16/25 20:05 Sacubitril/Valsartan 24-26 Mg Tablet PO 1 tab On Hold: 07/17/25 00:53 Q12HR KIMBERLEY Administration Fluticasone/Salmeterol 2 puff 07/14/25 20:00 07/19/25 08:20 Fluticasone/Salmeterol 115-21 Mcg Inhaler 1 Puff INHALATION 2 puff Q12HRT KIMBERLEY Administration Tamsulosin HCl 0.4 mg 07/15/25 09:00 07/16/25 08:50 Tamsulosin Hcl 0.4 Mg Capsule PO 0.4 mg On Hold: 07/17/25 01:38 DAILY KIMBERLEY Administration Radiology Results: ITS Impressions Abdomen/Pelvis CTA 07/14/25 12:36 IMPRESSION: 1. No evidence of active GI bleed or other acute abnormality. Chest X-Ray 07/14/25 13:21 IMPRESSION: 1. Recommend CT chest to better evaluate right midlung opacity. Chest CT 07/14/25 17:50 IMPRESSION: 1. New 2.4 x 2.2 cm pleural-based right upper lobe mass, suspicious for bronchogenic carcinoma. 2: Hiatal hernia with fluid and debris in the esophagus which is mildly thickened, suspicious for esophagitis secondary to reflux. 3: Small pericardial effusion. Abdomen/Pelvis CT 07/17/25 09:31 IMPRESSION: 1. No findings of active GI bleed. 2. Mild gastritis not excluded. 3. Additional findings as above. GI Bleed Scan Nuclear Medicine 07/19/25 13:12 IMPRESSION: No evidence of GI bleed. Labs Labs: Laboratory Results - last 24 hr 07/19/25 07/19/25 07/19/25 03:57 07:23 13:31 WBC 1.7 L* RBC 2.86 L Hgb 7.8 L Hct 25.1 L MCV 87.8 MCH 27.3 MCHC 31.1 L RDW 16.8 H Plt Count 197 MPV 10.7 H Sodium 134 L Potassium 3.4 Chloride 112 H Carbon Dioxide 20 L Anion Gap 2 L BUN 4 L Creatinine 0.45 L Estim Creat Clear Calc 96 Estimated GFR > 60 Glucose 113 H POC Capillary Glucose 117 H 123 H Calcium 8.1 L Magnesium 1.9 07/19/25 16:21 WBC RBC Hgb Hct MCV MCH MCHC RDW Plt Count MPV Sodium Potassium Chloride Carbon Dioxide Anion Gap BUN Creatinine Estim Creat Clear Calc Estimated GFR Glucose POC Capillary Glucose 224 H Calcium Magnesium Quality VTE Prophylaxis VTE prophylaxis: mechanical ordered
[2025-07-20] VITALS (9 sets, daily range): BP systolic 95–151; BP diastolic 49–68; PULSE 44–90; RESP 18–20; TEMP 36.6–37.8; O2SAT 96–100
[2025-07-20 04:21] LABS: Hematocrit 22.9 % (42.0-52.0); Hemoglobin 7.1 g/dL (14.0-18.0); Mean Corpuscular HGB Conc 31.0 g/dl (32-36); Mean Corpuscular Hemoglobin 27.4 pg (26-34); Mean Corpuscular Volume 88.4 fl (80-100); Platelet Count Result 192 k/mm3 (150-375); Red Blood Count 2.59 M/mm3 (4.6-6.20)
[2025-07-20 04:46] LABS: Anion Gap 1 mmol/L (4-12); Blood Urea Nitrogen 4 mg/dL (9-20); Calcium 7.9 mg/dL (8.4-10.2); Carbon Dioxide 20 mmol/L (22-30); Chloride 114 mmol/L (98-107); Estimated CRCL calculation 104 ml/min; Estimated Glomerular Filt Rate > 60; Glucose 111 mg/dL (65-110); Magnesium 1.9 mg/dL (1.6-2.3); Potassium 3.3 mmol/L (3.4-5.0); Sodium 135 mmol/L (137-145)
[2025-07-20] MEDS: SODIUM CHLORIDE 0.9% IV 1,000 ML 125 ML IV CONT (04:53)
[2025-07-20 05:05] LABS: White Blood Count 1.5 K/mm3 (4.5-10.0)
[2025-07-20] MEDS: EMPAGLIFLOZIN 10 MG TABLET PO (08:40)
[2025-07-20] MEDS: TAMSULOSIN HCL 0.4 MG CAPSULE PO (08:40)
[2025-07-20] MEDS: ACETAMINOPHEN 325 MG TABLET 650 MG PO ×2 (08:40→16:17)
[2025-07-20] MEDS: FERROUS SULFATE 325 MG TABLET PO ×3 (08:40→16:17)
[2025-07-20] MEDS: MIDODRINE HCL 2.5 MG TABLET PO ×3 (08:40→16:17)
[2025-07-20] MEDS: FLUTICASONE/SALMETEROL 115-21 MCG INHALER 1 PUFF 2 PUFF INHALATION ×2 (09:02→20:25)
[2025-07-20] MEDS: POTASSIUM CHLORIDE 20 MEQ PACKET (FOR LIQUID) 40 MEQ PO (14:18)
[2025-07-20] MEDS: ASPIRIN 81 MG ENTERIC TABLET PO (16:17)
--- NOTE | 2025-07-20 16:39 | P.PNGI_ITS ---
Progress Note: A&P Assessment and Plan (1) Hemorrhage of large intestine due to diverticular disease: Code(s): K57.31 - Diverticulosis of large intestine without perforation or abscess with bleeding Status: Acute Assessment and Plan: colonoscopy noted stigmata of recent bleeding but could not find culprit diverticula repeat CT scan no obvious active bleeding and GIB scan without active bleeding h/h low 7's, started on baby aspirin given heart history no bleeding for last 3 days and bed still unavailable at [facility]- if case of rebleeding only alternative will be interventional radiology if h/h remains stable he can go home but monitor for signs of new bleeding (2) Lower GI bleed: Code(s): K92.2 - Gastrointestinal hemorrhage, unspecified Status: Acute Assessment and Plan: no more episodes for last 3 days (3) Acute blood loss anemia: Code(s): D62 - Acute posthemorrhagic anemia Status: Acute Assessment and Plan: no more need of blood transfusion (4) Leukopenia: Code(s): D72.819 - Decreased white blood cell count, unspecified Status: Acute (5) Cardiomyopathy: Code(s): I42.9 - Cardiomyopathy, unspecified Status: Acute Assessment and Plan: repeat EF 25-30% Subjective Date/time seen: 07/20/25 16:39 Interval history: no more episodes of bleeding is concerned for the patient to home and would rather monitor for another day since he was started also on baby asa Review of Systems Review of Systems: All systems reviewed & are unremarkable except as noted in HPI and below Exam Narrative: Elderly frail Patient is comfortable, NAD neck: supple HEENT: eyes are clear and none icteric LUNGS:CTA HEART: RR S1S2 ABD: BS+, Soft and nontender Lower extremities: no edema SKIN: pale Neuro: grossly intact. Objective Data Vital Signs Vital Signs: Vital Signs - 24 hr 07/19/25 20:22 07/19/25 21:20 07/20/25 00:00 Temperature 98 F 100.1 F H Pulse Rate 78 79 78 Respiratory Rate 20 20 Blood Pressure 107/52 L 95/59 L Pulse Oximetry 98 98 96 Oxygen Delivery Room Air Oxygen Flow Rate 07/20/25 01:30 07/20/25 08:00 07/20/25 08:10 Temperature 98.1 F 98.9 F Pulse Rate 44 L Respiratory Rate 20 Blood Pressure 129/49 L Pulse Oximetry 98 98 Oxygen Delivery Room Air Oxygen Flow Rate 07/20/25 09:03 07/20/25 09:03 07/20/25 15:46 Temperature 97.9 F Pulse Rate 90 90 47 L Respiratory Rate 20 20 18 Blood Pressure 151/59 H Pulse Oximetry 98 100 Oxygen Delivery Nasal Cannula Oxygen Flow Rate 2 Intake/Output Intake/Output: Intake & Output 07/17/25 07/18/25 07/19/25 07/20/25 23:59 23:59 23:59 23:59 Intake Total 5260 4728.8 4715.3 2052.9 Output Total 4125 2800 2600 1725 Balance 1135 1928.8 2115.3 327.9 Meds/Results Medications: Active Medications Generic Name Dose Route Start Last Admin Trade Name Freq PRN Reason Stop Dose Admin Acetaminophen 650 mg 07/14/25 13:19 07/20/25 16:17 Acetaminophen 325 Mg Tablet PO 650 mg Q4H PRN Administration Mild Pain (1-3) or Fever Albuterol 2 puff 07/14/25 19:25 Albuterol Sulfate (*Sp) Aerosol 1 Puff INHALATION Q4HRT PRN WHEEZE/SOB Aspirin 81 mg 07/20/25 15:15 07/20/25 16:17 Aspirin 81 Mg Enteric Tablet PO 81 mg QAM KIMBERLEY Administration Dextrose 12.5 gm 07/14/25 13:19 Dextrose 50% 25 Gm/50 Ml Syringe IV PUSH PRN PRN Hypoglycemia Protocol Empagliflozin 10 mg 07/15/25 09:00 07/20/25 08:40 Empagliflozin 10 Mg Tablet PO 10 mg DAILY KIMBERLEY Administration Ferrous Sulfate 325 mg 07/15/25 09:00 07/20/25 16:17 Ferrous Sulfate 325 Mg Tablet PO 325 mg TID KIMBERLEY Administration Glucagon 1 mg 07/14/25 13:19 Glucagon For Inj 1 Mg Vial IM PRN PRN Hypoglycemia Protocol Glucose 15 gm 07/14/25 13:19 Glucose Oral Gel 15 Gm Of Glucse In 37.5 Gm Tube PO PRN PRN Hypoglycemia Protocol Dextrose 1,000 mls @ 100 mls/hr 07/14/25 13:19 Dextrose 5% 1,000 Ml IVPB PRN PRN Hypoglycemia Protocol Insulin Aspart 2 - 5 units 07/14/25 17:00 07/20/25 12:30 Insulin Aspart (*Bkc) 100 Units/Ml SUB-Q Not Given TIDWM [facility] Protocol Latanoprost 1 drop 07/14/25 21:00 07/19/25 21:04 Latanoprost 0.005% Op Soln 2.5 Ml Btl EACH EYE Not Given HS KIMBERLEY Midodrine 2.5 mg 07/16/25 13:00 07/20/25 16:17 Midodrine Hcl 2.5 Mg Tablet PO 2.5 mg TID KIMBERLEY Administration Nitroglycerin 0.4 mg 07/14/25 19:24 Nitroglycerin Sl 0.4 Mg Tablet SUBLINGUAL Q5M PRN Chest Pain Ondansetron HCl 4 mg 07/14/25 13:11 07/14/25 22:34 Ondansetron Inj 4 Mg/2 Ml Vial IV PUSH 4 mg Q4H PRN Administration Nausea Oxycodone/Acetaminophen 1 tablet 07/14/25 19:24 07/15/25 20:50 Oxycodone/Acetaminophen (*Crx) 5-325 Mg Tablet PO 1 tablet Q6H PRN Administration Pain Rated 6 or Greater Fluticasone/Salmeterol 2 puff 07/14/25 20:00 07/20/25 09:02 Fluticasone/Salmeterol 115-21 Mcg Inhaler 1 Puff INHALATION 2 puff Q12HRT KIMBERLEY Administration Tamsulosin HCl 0.4 mg 07/15/25 09:00 07/20/25 08:40 Tamsulosin Hcl 0.4 Mg Capsule PO 0.4 mg DAILY KIMBERLEY Administration Radiology Results: ITS Impressions Abdomen/Pelvis CTA 07/14/25 12:36 IMPRESSION: 1. No evidence of active GI bleed or other acute abnormality. Chest X-Ray 07/14/25 13:21 IMPRESSION: 1. Recommend CT chest to better evaluate right midlung opacity. Chest CT 07/14/25 17:50 IMPRESSION: 1. New 2.4 x 2.2 cm pleural-based right upper lobe mass, suspicious for bronchogenic carcinoma. 2: Hiatal hernia with fluid and debris in the esophagus which is mildly thicken ed, suspicious for esophagitis secondary to reflux. 3: Small pericardial effusion. Abdomen/Pelvis CT 07/17/25 09:31 IMPRESSION: 1. No findings of active GI bleed. 2. Mild gastritis not excluded. 3. Additional findings as above. GI Bleed Scan Nuclear Medicine 07/19/25 13:12 IMPRESSION: No evidence of GI bleed. Labs Labs: Laboratory Results - last 24 hr 07/19/25 07/20/25 07/20/25 20:12 03:42 08:10 WBC 1.5 L* RBC 2.59 L Hgb 7.1 L Hct 22.9 L MCV 88.4 MCH 27.4 MCHC 31.0 L RDW 17.2 H Plt Count 192 MPV 10.6 H Sodium 135 L Potassium 3.3 L Chloride 114 H Carbon Dioxide 20 L Anion Gap 1 L BUN 4 L Creatinine 0.43 L Estim Creat Clear Calc 104 Estimated GFR > 60 Glucose 111 H POC Capillary Glucose 148 H 202 H Calcium 7.9 L Magnesium 1.9 07/20/25 07/20/25 11:30 15:48 WBC RBC Hgb Hct MCV MCH MCHC RDW Plt Count MPV Sodium Potassium Chloride Carbon Dioxide Anion Gap BUN Creatinine Estim Creat Clear Calc Estimated GFR Glucose POC Capillary Glucose 182 H 113 H Calcium Magnesium
[2025-07-20 16:46] LABS: Hematocrit 25.4 % (42.0-52.0); Hemoglobin 7.9 g/dL (14.0-18.0)
--- NOTE | 2025-07-20 17:07 | P.PNIM_ITS ---
Assessment and Plan Assessment and Plan (1) Lower GI bleed: Code(s): K92.2 - Gastrointestinal hemorrhage, unspecified Status: Acute Assessment and Plan: GI consulted Plan for scope tomorrow Okay for diet now, NPO midnight Bowel prep per GI H&H q.6 (2) UTI (urinary tract infection): Code(s): N39.0 - Urinary tract infection, site not specified Status: Acute Assessment and Plan: IV Rocephin Culture and sensitivity pending (3) Pericardial effusion: Code(s): I31.39 - Other pericardial effusion (noninflammatory) Status: Acute Assessment and Plan: Small pericardial effusion. Echo pending (4) Acute blood loss anemia: Code(s): D62 - Acute posthemorrhagic anemia Status: Acute Assessment and Plan: Brilinta? ? Q.6 are H&H Transfuse for hemoglobin less than 7 or symptomatic No need for transfusion at this time Per cardiology Given patient had his stent placed almost 15 years ago, can stop Brilinta. Recommend continue aspirin 81 mg daily without interruption if possible. However if GI needs to stop aspirin acutely for a 1-2 days during evaluation and treatment of acute GI bleed, that will be okay as platelet half life is about 1 week. Do not hold aspirin for more than 1-2 days to avoid risk of stent thrombosis (5) CHF (congestive heart failure): Code(s): I50.9 - Heart failure, unspecified Status: Acute Assessment and Plan: Patient received 500 mils an ED Echocardiogram pending history of low EF Continue to monitor Currently holding Lasix due to soft blood pressures re-evaluate in a.m. (6) Opacity noted on imaging study: Code(s): R93.89 - Abnormal findings on diagnostic imaging of other specified body structures Status: Acute Assessment and Plan: Right midlung opacity on x-ray CT chest pending-non con due to patient getting a CTA of abdomen pelvis prior New 2.4 x 2.2 cm pleural-based right upper lobe mass, suspicious for bronchogenic carcinoma. With leukopenia Pulmonology consulted Patient told about findings (7) Hypertension: Code(s): I10 - Essential (primary) hypertension Status: Acute Assessment and Plan: Holding antihypertensives as blood pressure is also soft likely due to acute blood loss and dehydration (8) Type 2 diabetes mellitus: Code(s): E11.9 - Type 2 diabetes mellitus without complications Status: Acute Assessment and Plan: Accu-Helen a.prasad HS SSI Hold metformin L (9) Coronary artery disease: Code(s): I25.10 - Atherosclerotic heart disease of campo coronary artery without angina pectoris Status: Acute Assessment and Plan: ELISSA Hensley, no need to restart on discharge as it has been 15 years since his [place] Okay to restart aspirin after scope Continue metoprolol, Entresto, empagliflozin if blood pressure allows Plan Patient did have 2 large bloody BM and his hgb dropped to 6.8 and he was given 2 units of PRBC and now his Hgb is 7.8, Called [facility], discussed with Dr. 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 will do nuclear study for GI bleed on Saturday and monitor, patient is clinically stable. gave updates to Hermann Ugarte will monitor. patient remains clinically stable, his hgb is stable, no new bleeding, patient is accepted by the [facility], waiting for the bed, today patient nuclear med study for GI bleeding and it was negative for any bleeding. patient remains clinically stable, will monitor patient with rectal bleeding, his hgb was 10.9 patient with severe cardiomyopathy wit EF of 15%, patient was by the clinical outcomes manager and cleared the patient for colonoscopy and EGD, patient will be seen by the GI and will have the procedure later today, will monitor. on 07/15/25 patient wa seen by GI and had EGD which was normal and there was upper GI bleed, colonoscopy showed Multiple wide-mouth diverticula were present in the ascending colon, in the transverse colon, in the descending colon, and in the sigmoid colon. No definite source or specific diverticulum bleeding, however there is old retained blood throughout. No blood seen coming through the ileo cecal valve. No polyps, neoplasia or colitis, Dr Pulido was concern that patient angiogram to find the source of bleeding and to transfer to [facility] for the procedure, I called the [facility] and spoke with Dr Santiago TURCIOS, he recommended to patient HH after transfusion, if the HH is dropping then he will accept the patient for the transfer, 1st repeated HH was 6.8., 2 hrs after transfusion his HH was 7.9 and 4 hr transfusion his HH is 7.7 suggesting patient is not bleeding, I have ordered another HH at 00:00 hours, again if patient HH drops will call [facility] as instructed by the DOLLY, I did speak with Dr. Valentino and gave update what [facility] has recommended. I have instructed nursing staff to watch of any bleeding and call MD carbon grinder and or open end spinning operator. I have also gave updates to Dr. Liao the MD die cutter diamond until 7PM. Subjective Date/time seen: 07/20/25 17:07 Interval history: Blood in stool H&P-Narrative: male with past medical history CAD with stents patient on Brilinta, prior upper GI bleed, hypertension, diabetes, CHF, presents the hospital with bright red blood per rectum. Patient states that he had several bowel movements the other day and this morning that were bloody. He states that he has had several more bowel movements malaise in the hospital however he is also doing bowel prep for the scope tomorrow. Patient has no complaints of fevers chills nausea or vomiting. Patient's lab work shows leukopenia at 2.0, hemoglobin of 10.9 with previous hemoglobin being 12.5, platelets of 280, sodium of 135, BUN 27, creatinine of 0.68, glucose of 139, UA is cloudy with 2+ blood, 2+ leukocyte esterase, 21-50 rbc's 51-100 wbc's and 4+ bacteria. was consulted for lower GI bleed. CTA abdomen pelvis shows no sign of acute bleeding. Chest x-ray showed right mid lung opacity recommending CT. patient with rectal bleeding, his hgb was 10.9 patient with severe cardiomyopathy wit EF of 15%, patient was seen by the clinical outcomes manager and cleared the patient for colonoscopy and EGD, patient will be seen by the GI and will have the procedure later today, will monitor. on 07/15/25 patient wa seen by GI and had EGD which was normal and there was upper GI bleed, colonoscopy showed Multiple wide-mouth diverticula were present in the ascending colon, in the transverse colon, in the descending colon, and in the sigmoid colon. No definite source or specific diverticulum bleeding, however there is old retained blood throughout. No blood seen coming through the ileo cecal valve. No polyps, neoplasia or colitis, Dr Pulido was concern that patient angiogram to find the source of bleeding and to transfer to [facility] for the procedure, I called the [facility] and spoke with Dr Santiago TURCIOS, he recommended to patient HH after transfusion, if the HH is dropping then he will accept the patient for the transfer, 1st repeated HH was 6.8., 2 hrs after transfusion his HH was 7.9 and 4 hr transfusion his HH is 7.7 suggesting patient is not bleeding, I have ordered another HH at 00:00 hours, again if patient HH drops will call [facility] as instructed by the GI, I did speak with Dr. Valentino and gave update what [facility] has recommended. Patient did have 2 large bloody BM and his hgb dropped to 6.8 and he was given 2 units of PRBC and now his Hgb is 7.8, Called [facility] transfer line, discussed with Dr. 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 will do nuclear study for GI bleed on Saturday and monitor, patient is clinically stable. gave updates to Hermann Ugarte will monitor. patient remains clinically stable, his hgb is stable, no new bleeding, patient is accepted by the [facility], waiting for the bed, today patient nuclear med study for GI bleeding and it was negative for any bleeding. patient remains clinically stable, will monitor Review of Systems Review of Systems: A complete review of systems was performed and pertinent positives are reported in the HPI. Exam Narrative: Elderly frail Patient is comfortable, NAD HEENT: eyes are clear and none icteric LUNGS:CTA HEART: RR S1S2 ABD: BS+, Soft and nontender Lower extremities: no edema SKIN: nonjaundiced Neuro: grossly intact. Objective Data Vital Signs Vital Signs: Vital Signs - 24 hr 07/19/25 20:22 07/19/25 21:20 07/20/25 00:00 Temperature 36.6 C 37.8 C H Pulse Rate 78 79 78 Respiratory Rate 20 20 Blood Pressure 107/52 L 95/59 L Pulse Oximetry 98 98 96 Oxygen Delivery Room Air Oxygen Flow Rate 07/20/25 01:30 07/20/25 08:00 07/20/25 08:10 Temperature 36.7 C 37.2 C Pulse Rate 44 L Respiratory Rate 20 Blood Pressure 129/49 L Pulse Oximetry 98 98 Oxygen Delivery Room Air Oxygen Flow Rate 07/20/25 09:03 07/20/25 09:03 07/20/25 15:46 Temperature 36.6 C Pulse Rate 90 90 47 L Respiratory Rate 20 20 18 Blood Pressure 151/59 H Pulse Oximetry 98 100 Oxygen Delivery Nasal Cannula Oxygen Flow Rate 2 07/20/25 16:42 Temperature Pulse Rate Respiratory Rate Blood Pressure 111/59 L Pulse Oximetry Oxygen Delivery Oxygen Flow Rate Intake/Output Intake/Output: Intake & Output 07/17/25 07/18/25 07/19/25 07/20/25 23:59 23:59 23:59 23:59 Intake Total 5260 4728.8 4715.3 2052.9 Output Total 4125 2800 2600 1725 Balance 1135 1928.8 2115.3 327.9 Meds/Results Medications: Active Medications Generic Name Dose Route Start Last Admin Trade Name Freq PRN Reason Stop Dose Admin Acetaminophen 650 mg 07/14/25 13:19 07/20/25 16:17 Acetaminophen 325 Mg Tablet PO 650 mg Q4H PRN Administration Mild Pain (1-3) or Fever Albuterol 2 puff 07/14/25 19:25 Albuterol Sulfate (*Sp) Aerosol 1 Puff INHALATION Q4HRT PRN WHEEZE/SOB Aspirin 81 mg 07/20/25 15:15 07/20/25 16:17 Aspirin 81 Mg Enteric Tablet PO 81 mg QAM KIMBERLEY Administration Dextrose 12.5 gm 07/14/25 13:19 Dextrose 50% 25 Gm/50 Ml Syringe IV PUSH PRN PRN Hypoglycemia Protocol Empagliflozin 10 mg 07/15/25 09:00 07/20/25 08:40 Empagliflozin 10 Mg Tablet PO 10 mg DAILY KIMBERLEY Administration Ferrous Sulfate 325 mg 07/15/25 09:00 07/20/25 16:17 Ferrous Sulfate 325 Mg Tablet PO 325 mg TID KIMBERLEY Administration Glucagon 1 mg 07/14/25 13:19 Glucagon For Inj 1 Mg Vial IM PRN PRN Hypoglycemia Protocol Glucose 15 gm 07/14/25 13:19 Glucose Oral Gel 15 Gm Of Glucse In 37.5 Gm Tube PO PRN PRN Hypoglycemia Protocol Dextrose 1,000 mls @ 100 mls/hr 07/14/25 13:19 Dextrose 5% 1,000 Ml IVPB PRN PRN Hypoglycemia Protocol Insulin Aspart 2 - 5 units 07/14/25 17:00 07/20/25 16:41 Insulin Aspart (*Bkc) 100 Units/Ml SUB-Q Not Given TIDWM KIMBERLEY Protocol Latanoprost 1 drop 07/14/25 21:00 07/19/25 21:04 Latanoprost 0.005% Op Soln 2.5 Ml Btl EACH EYE Not Given HS [facility] Midodrine 2.5 mg 07/16/25 13:00 07/20/25 16:17 Midodrine Hcl 2.5 Mg Tablet PO 2.5 mg TID KIMBERLEY Administration Nitroglycerin 0.4 mg 07/14/25 19:24 Nitroglycerin Sl 0.4 Mg Tablet SUBLINGUAL Q5M PRN Chest Pain Ondansetron HCl 4 mg 07/14/25 13:11 07/14/25 22:34 Ondansetron Inj 4 Mg/2 Ml Vial IV PUSH 4 mg Q4H PRN Administration Nausea Oxycodone/Acetaminophen 1 tablet 07/14/25 19:24 07/15/25 20:50 Oxycodone/Acetaminophen (*Crx) 5-325 Mg Tablet PO 1 tablet Q6H PRN Administration Pain Rated 6 or Greater Fluticasone/Salmeterol 2 puff 07/14/25 20:00 07/20/25 09:02 Fluticasone/Salmeterol 115-21 Mcg Inhaler 1 Puff INHALATION 2 puff Q12HRT KIMBERLEY Administration Tamsulosin HCl 0.4 mg 07/15/25 09:00 07/20/25 08:40 Tamsulosin Hcl 0.4 Mg Capsule PO 0.4 mg DAILY KIMBERLEY Administration Radiology Results: ITS Impressions Abdomen/Pelvis CTA 07/14/25 12:36 IMPRESSION: 1. No evidence of active GI bleed or other acute abnormality. Chest X-Ray 07/14/25 13:21 IMPRESSION: 1. Recommend CT chest to better evaluate right midlung opacity. Chest CT 07/14/25 17:50 IMPRESSION: 1. New 2.4 x 2.2 cm pleural-based right upper lobe mass, suspicious for bronchogenic carcinoma. 2: Hiatal hernia with fluid and debris in the esophagus which is mildly t hickened, suspicious for esophagitis secondary to reflux. 3: Small pericardial effusion. Abdomen/Pelvis CT 07/17/25 09:31 IMPRESSION: 1. No findings of active GI bleed. 2. Mild gastritis not excluded. 3. Additional findings as above. GI Bleed Scan Nuclear Medicine 07/19/25 13:12 IMPRESSION: No evidence of GI bleed. Labs Labs: Laboratory Results - last 24 hr 07/19/25 07/20/25 07/20/25 20:12 03:42 08:10 WBC 1.5 L* RBC 2.59 L Hgb 7.1 L Hct 22.9 L MCV 88.4 MCH 27.4 MCHC 31.0 L RDW 17.2 H Plt Count 192 MPV 10.6 H Sodium 135 L Potassium 3.3 L Chloride 114 H Carbon Dioxide 20 L Anion Gap 1 L BUN 4 L Creatinine 0.43 L Estim Creat Clear Calc 104 Estimated GFR > 60 Glucose 111 H POC Capillary Glucose 148 H 202 H Calcium 7.9 L Magnesium 1.9 07/20/25 07/20/25 07/20/25 11:30 15:48 16:40 WBC RBC Hgb 7.9 L Hct 25.4 L MCV MCH MCHC RDW Plt Count MPV Sodium Potassium Chloride Carbon Dioxide Anion Gap BUN Creatinine Estim Creat Clear Calc Estimated GFR Glucose POC Capillary Glucose 182 H 113 H Calcium Magnesium
[2025-07-20] MEDS: LATANOPROST 0.005% OP SOLN 2.5 ML BTL 1 DROP EACH EYE (23:00)
[2025-07-21] VITALS (8 sets, daily range): BP systolic 103–116; BP diastolic 54–67; PULSE 56–109; RESP 18–20; TEMP 36.4–36.7; O2SAT 93–98
[2025-07-21 04:40] LABS: Hematocrit 23.7 % (42.0-52.0); Hemoglobin 7.3 g/dL (14.0-18.0); Mean Corpuscular HGB Conc 30.8 g/dl (32-36); Mean Corpuscular Hemoglobin 27.0 pg (26-34); Mean Corpuscular Volume 87.8 fl (80-100); Platelet Count Result 203 k/mm3 (150-375); Red Blood Count 2.70 M/mm3 (4.6-6.20)
[2025-07-21 04:52] LABS: Anion Gap 3 mmol/L (4-12); Blood Urea Nitrogen 4 mg/dL (9-20); Calcium 8.2 mg/dL (8.4-10.2); Carbon Dioxide 21 mmol/L (22-30); Chloride 113 mmol/L (98-107); Estimated CRCL calculation 113 ml/min; Estimated Glomerular Filt Rate > 60; Glucose 101 mg/dL (65-110); Magnesium 2.0 mg/dL (1.6-2.3); Potassium 3.4 mmol/L (3.4-5.0); Sodium 137 mmol/L (137-145); White Blood Count 1.3 K/mm3 (4.5-10.0)
[2025-07-21] MEDS: FLUTICASONE/SALMETEROL 115-21 MCG INHALER 1 PUFF 2 PUFF INHALATION ×2 (07:20→20:12)
--- NOTE | 2025-07-21 10:23 | PCNWS ---
Weekly nutritional screen. Patient is tolerating current diet with adequate intake, 75-100% on full liquid, now advanced to low fiber. Ensure Clear ordered by provider TID (240 kcal, 8 g protein). No weight loss reported. No nutritional needs at this time.
[2025-07-21] MEDS: TAMSULOSIN HCL 0.4 MG CAPSULE PO (10:56)
[2025-07-21] MEDS: FERROUS SULFATE 325 MG TABLET PO ×3 (10:56→16:44)
[2025-07-21] MEDS: EMPAGLIFLOZIN 10 MG TABLET PO (10:56)
[2025-07-21] MEDS: MIDODRINE HCL 2.5 MG TABLET PO (10:56)
[2025-07-21] MEDS: ASPIRIN 81 MG ENTERIC TABLET PO (10:56)
--- NOTE | 2025-07-21 13:12 | PHAR ---
The patient's home med of Repatha 140mg/ml has been verified.
--- NOTE | 2025-07-21 18:48 | P.PNIM_ITS ---
Assessment and Plan Assessment and Plan (1) Lower GI bleed: Code(s): K92.2 - Gastrointestinal hemorrhage, unspecified Status: Acute Assessment and Plan: GI consulted Plan for scope tomorrow Okay for diet now, NPO midnight Bowel prep per GI H&H q.6 (2) UTI (urinary tract infection): Code(s): N39.0 - Urinary tract infection, site not specified Status: Acute Assessment and Plan: IV Rocephin Culture and sensitivity pending (3) Pericardial effusion: Code(s): I31.39 - Other pericardial effusion (noninflammatory) Status: Acute Assessment and Plan: Small pericardial effusion. Echo pending (4) Acute blood loss anemia: Code(s): D62 - Acute posthemorrhagic anemia Status: Acute Assessment and Plan: Brilinta? ? Q.6 are H&H Transfuse for hemoglobin less than 7 or symptomatic No need for transfusion at this time Per cardiology Given patient had his stent placed almost 15 years ago, can stop Brilinta. Recommend continue aspirin 81 mg daily without interruption if possible. However if GI needs to stop aspirin acutely for a 1-2 days during evaluation and treatment of acute GI bleed, that will be okay as platelet half life is about 1 week. Do not hold aspirin for more than 1-2 days to avoid risk of stent thrombosis (5) CHF (congestive heart failure): Code(s): I50.9 - Heart failure, unspecified Status: Acute Assessment and Plan: Patient received 500 mils an ED Echocardiogram pending history of low EF Continue to monitor Currently holding Lasix due to soft blood pressures re-evaluate in a.m. (6) Opacity noted on imaging study: Code(s): R93.89 - Abnormal findings on diagnostic imaging of other specified body structures Status: Acute Assessment and Plan: Right midlung opacity on x-ray CT chest pending-non con due to patient getting a CTA of abdomen pelvis prior New 2.4 x 2.2 cm pleural-based right upper lobe mass, suspicious for bronchogenic carcinoma. With leukopenia Pulmonology consulted Patient told about findings (7) Hypertension: Code(s): I10 - Essential (primary) hypertension Status: Acute Assessment and Plan: Holding antihypertensives as blood pressure is also soft likely due to acute blood loss and dehydration (8) Type 2 diabetes mellitus: Code(s): E11.9 - Type 2 diabetes mellitus without complications Status: Acute Assessment and Plan: Accu-Helen a.prasad HS SSI Hold metformin L (9) Coronary artery disease: Code(s): I25.10 - Atherosclerotic heart disease of [place] coronary artery without angina pectoris Status: Acute Assessment and Plan: ELISSA Hensley, no need to restart on discharge as it has been 15 years since his [place] Okay to restart aspirin after scope Continue metoprolol, Entresto, empagliflozin if blood pressure allows Plan Patient did have 2 large bloody BM and his hgb dropped to 6.8 and he was given 2 units of PRBC and now his Hgb is 7.8, Called [facility] transfer line, discussed with Dr. 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 will do nuclear study for GI bleed on Saturday and monitor, patient is clinically stable. gave updates to Hermann Ugarte will monitor. patient remains clinically stable, his hgb is stable, no new bleeding, patient is accepted by the [facility], waiting for the bed, on 07/20 patient had nuclear med study for GI bleeding and it was negative for any bleeding. patient remains clinically stable, will monitor, still no call from [facility], will monitor. 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 on 07/15/25 patient wa seen by GI and had EGD which was normal and there was upper GI bleed, colonoscopy showed Multiple wide-mouth diverticula were present in the ascending colon, in the transverse colon, in the descending colon, and in the sigmoid colon. No definite source or specific diverticulum bleeding, however there is old retained blood throughout. No blood seen coming through the ileo cecal valve. No polyps, neoplasia or colitis, Dr Pulido was concern that patient angiogram to find the source of bleeding and to transfer to [facility] for the procedure, I called the [facility] and spoke with Dr Santiago TURCIOS, he recommended to patient HH after transfusion, if the HH is dropping then he will accept the patient for the transfer, 1st repeated HH was 6.8., 2 hrs after transfusion his HH was 7.9 and 4 hr transfusion his HH is 7.7 suggesting patient is not bleeding, I have ordered another HH at 00:00 hours, again if patient HH drops will call [facility] as instructed by the GI, I did speak with Dr. Valentino and gave update what [facility] has recommended. I have instructed nursing staff to watch of any bleeding and call MD division director and or vet assistant. I have also gave updates to Dr. Liao the MD timber poisoner until 7PM. Subjective Date/time seen: 07/21/25 18:48 Interval history: Blood in stool H&P-Narrative: male with past medical history CAD with stents patient on Brilinta, prior upper GI bleed, hypertension, diabetes, CHF, presents the hospital with bright red blood per rectum. Patient states that he had several bowel movements the other day and this morning that were bloody. He states that he has had several more bowel movements malaise in the hospital however he is also doing bowel prep for the scope tomorrow. Patient has no complaints of fevers chills nausea or vomiting. Patient's lab work shows leukopenia at 2.0, hemoglobin of 10.9 with previous hemoglobin being 12.5, platelets of 280, sodium of 135, BUN 27, creatinine of 0.68, glucose of 139, UA is cloudy with 2+ blood, 2+ leukocyte esterase, 21-50 rbc's 51-100 wbc's and 4+ bacteria. was consulted for lower GI bleed. CTA abdomen pelvis shows no sign of acute bleeding. Chest x-ray showed right mid lung opacity recommending CT. 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 on 07/15/25 patient wa seen by GI and had EGD which was normal and there was upper GI bleed, colonoscopy showed Multiple wide-mouth diverticula were present in the ascending colon, in the transverse colon, in the descending colon, and in the sigmoid colon. No definite source or specific diverticulum bleeding, however there is old retained blood throughout. No blood seen coming through the ileo cecal valve. No polyps, neoplasia or colitis, Dr Pulido was concern that patient angiogram to find the source of bleeding and to transfer to [facility] for the procedure, I called the [facility] and spoke with Dr Santiago TURCIOS, he recommended to patient HH after transfusion, if the HH is dropping then he will accept the patient for the transfer, 1st repeated HH was 6.8., 2 hrs after transfusion his HH was 7.9 and 4 hr transfusion his HH is 7.7 suggesting patient is not bleeding, I have ordered another HH at 00:00 hours, again if patient HH drops will call [facility] as instructed by the GI, I did speak with Dr. Valentino and gave update what [facility] has recommended. Patient did have 2 large bloody BM and his hgb dropped to 6.8 and he was given 2 units of PRBC and now his Hgb is 7.8, Called [facility] [place] transfer line, discussed with Dr. 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 will do nuclear study for GI bleed on Saturday and monitor, patient is clinically stable. gave updates to Hermann Ugarte will monitor. patient remains clinically stable, his hgb is stable, no new bleeding, patient is accepted by the [facility], waiting for the bed, on 07/20 patient had nuclear med study for GI bleeding and it was negative for any bleeding. patient remains clinically stable, will monitor, still no call from [facility], will monitor. Review of Systems Review of Systems: A complete review of systems was performed and pertinent positives are reported in the HPI. Exam Narrative: Elderly frail Patient is comfortable, NAD HEENT: eyes are clear and none icteric LUNGS:CTA HEART: RR S1S2 ABD: BS+, Soft and nontender Lower extremities: no edema SKIN: nonjaundiced Neuro: grossly intact. Objective Data Vital Signs Vital Signs: Vital Signs - 24 hr 07/20/25 19:26 07/20/25 20:00 07/20/25 20:29 Temperature 36.6 C Pulse Rate 81 Respiratory Rate 20 Blood Pressure 114/68 Pulse Oximetry 97 97 Oxygen Delivery Room Air Room Air 07/21/25 00:00 07/21/25 07:21 07/21/25 07:21 Temperature 36.7 C Pulse Rate 56 L 99 Respiratory Rate 20 19 Blood Pressure 109/58 L Pulse Oximetry 97 96 Oxygen Delivery Room Air 07/21/25 07:59 07/21/25 11:16 07/21/25 13:51 Temperature 36.6 C 36.4 C L Pulse Rate 89 80 85 Respiratory Rate 20 Blood Pressure 116/67 103/54 L 113/65 Pulse Oximetry 97 98 Oxygen Delivery 07/21/25 16:00 Temperature 36.7 C Pulse Rate 90 Respiratory Rate 18 Blood Pressure 110/64 Pulse Oximetry 98 Oxygen Delivery Intake/Output Intake/Output: Intake & Output 07/18/25 07/19/25 07/20/25 07/21/25 23:59 23:59 23:59 23:59 Intake Total 4728.8 4715.3 2662.9 1970 Output Total 2800 2600 2625 951 Balance 1928.8 2115.3 37.9 1019 Meds/Results Medications: Active Medications Generic Name Dose Route Start Last Admin Trade Name Freq PRN Reason Stop Dose Admin Acetaminophen 650 mg 07/14/25 13:19 07/20/25 16:17 Acetaminophen 325 Mg Tablet PO 650 mg Q4H PRN Administration Mild Pain (1-3) or Fever Albuterol 2 puff 07/14/25 19:25 Albuterol Sulfate (*Sp) Aerosol 1 Puff INHALATION Q4HRT PRN WHEEZE/SOB Aspirin 81 mg 07/20/25 15:15 07/21/25 10:56 Aspirin 81 Mg Enteric Tablet PO 81 mg QAM KIMBERLEY Administration Dextrose 12.5 gm 07/14/25 13:19 Dextrose 50% 25 Gm/50 Ml Syringe IV PUSH PRN PRN Hypoglycemia Protocol Empagliflozin 10 mg 07/15/25 09:00 07/21/25 10:56 Empagliflozin 10 Mg Tablet PO 10 mg DAILY KIMBERLEY Administration Ferrous Sulfate 325 mg 07/15/25 09:00 07/21/25 16:44 Ferrous Sulfate 325 Mg Tablet PO 325 mg TID KIMBERLEY Administration Glucagon 1 mg 07/14/25 13:19 Glucagon For Inj 1 Mg Vial IM PRN PRN Hypoglycemia Protocol Glucose 15 gm 07/14/25 13:19 Glucose Oral Gel 15 Gm Of Glucse In 37.5 Gm Tube PO PRN PRN Hypoglycemia Protocol Dextrose 1,000 mls @ 100 mls/hr 07/14/25 13:19 Dextrose 5% 1,000 Ml IVPB PRN PRN Hypoglycemia Protocol Insulin Aspart 2 - 5 units 07/14/25 17:00 07/21/25 16:46 Insulin Aspart (*Bkc) 100 Units/Ml SUB-Q Not Given TIDWM KIMBERLEY Protocol Latanoprost 1 drop 07/14/25 21:00 07/20/25 23:00 Latanoprost 0.005% Op Soln 2.5 Ml Btl EACH EYE 1 drop HS KIMBERLEY Administration Nitroglycerin 0.4 mg 07/14/25 19:24 Nitroglycerin Sl 0.4 Mg Tablet SUBLINGUAL Q5M PRN Chest Pain Nonformulary Drug 0 mg 07/21/25 13:15 07/21/25 16:44 Repatha (Evolocumab) SUB-Q 08/20/25 13:09 140 mg 140 Mg Q14D@0900 KIMBERLEY Administration Ondansetron HCl 4 mg 07/14/25 13:11 07/14/25 22:34 Ondansetron Inj 4 Mg/2 Ml Vial IV PUSH 4 mg Q4H PRN Administration Nausea Oxycodone/Acetaminophen 1 tablet 07/14/25 19:24 07/15/25 20:50 Oxycodone/Acetaminophen (*Crx) 5-325 Mg Tablet PO 1 tablet Q6H PRN Administration Pain Rated 6 or Greater Fluticasone/Salmeterol 2 puff 07/14/25 20:00 07/21/25 07:20 Fluticasone/Salmeterol 115-21 Mcg Inhaler 1 Puff INHALATION 2 puff Q12HRT KIMBERLEY Administration Tamsulosin HCl 0.4 mg 07/15/25 09:00 07/21/25 10:56 Tamsulosin Hcl 0.4 Mg Capsule PO 0.4 mg DAILY KIMBERLEY Administration Radiology Results: ITS Impressions Abdomen/Pelvis CTA 07/14/25 12:36 IMPRESSION: 1. No evidence of active GI bleed or other acute abnormality. Chest X-Ray 07/14/25 13:21 IMPRESSION: 1. Recommend CT chest to better evaluate right midlung opacity. Chest CT 07/14/25 17:50 IMPRESSION: 1. New 2.4 x 2.2 cm pleural-based right upper lobe mass, suspicious for bronchogenic carcinoma. 2: Hiatal hernia with fluid and debris in the esophagus which is mildly thickened, suspicious for esophagitis secondary to reflux. 3: Small pericardial effusion. Abdomen/Pelvis CT 07/17/25 09:31 IMPRESSION: 1. No findings of active GI bleed. 2. Mild gastritis not excluded. 3. Additional findings as above. GI Bleed Scan Nuclear Medicine 07/19/25 13:12 IMPRESSION: No evidence of GI bleed. Labs Labs: Laboratory Results - last 24 hr 07/20/25 07/21/25 07/21/25 20:37 04:12 07:33 WBC 1.3 L* RBC 2.70 L Hgb 7.3 L Hct 23.7 L MCV 87.8 MCH 27.0 MCHC 30.8 L RDW 17.0 H Plt Count 203 MPV 10.1 Sodium 137 Potassium 3.4 Chloride 113 H Carbon Dioxide 21 L Anion Gap 3 L BUN 4 L Creatinine 0.44 L Estim Creat Clear Calc 113 Estimated GFR > 60 Glucose 101 POC Capillary Glucose 121 H 103 Calcium 8.2 L Magnesium 2.0 07/21/25 07/21/25 10:59 16:36 WBC RBC Hgb Hct MCV MCH MCHC RDW Plt Count MPV Sodium Potassium Chloride Carbon Dioxide Anion Gap BUN Creatinine Estim Creat Clear Calc Estimated GFR Glucose POC Capillary Glucose 129 H 130 H Calcium Magnesium
[2025-07-21] MEDS: LATANOPROST 0.005% OP SOLN 2.5 ML BTL 1 DROP EACH EYE (20:42)
[2025-07-22] VITALS (10 sets, daily range): BP systolic 94–120; BP diastolic 53–65; PULSE 65–100; RESP 16–20; TEMP 36.7–37.2; O2SAT 92–98
[2025-07-22 04:17] LABS: Hematocrit 23.4 % (42.0-52.0); Hemoglobin 7.0 g/dL (14.0-18.0); Mean Corpuscular HGB Conc 29.9 g/dl (32-36); Mean Corpuscular Hemoglobin 26.3 pg (26-34); Mean Corpuscular Volume 88.0 fl (80-100); Platelet Count Result 193 k/mm3 (150-375); Red Blood Count 2.66 M/mm3 (4.6-6.20)
[2025-07-22 04:21] LABS: White Blood Count 1.4 K/mm3 (4.5-10.0)
[2025-07-22 04:39] LABS: Anion Gap 4 mmol/L (4-12); Blood Urea Nitrogen 6 mg/dL (9-20); Calcium 8.1 mg/dL (8.4-10.2); Carbon Dioxide 22 mmol/L (22-30); Chloride 110 mmol/L (98-107); Estimated CRCL calculation 99 ml/min; Estimated Glomerular Filt Rate > 60; Glucose 108 mg/dL (65-110); Magnesium 1.9 mg/dL (1.6-2.3); Potassium 3.4 mmol/L (3.4-5.0); Sodium 136 mmol/L (137-145)
[2025-07-22] MEDS: FERROUS SULFATE 325 MG TABLET PO ×3 (08:50→17:52)
[2025-07-22] MEDS: TAMSULOSIN HCL 0.4 MG CAPSULE PO (08:50)
[2025-07-22] MEDS: EMPAGLIFLOZIN 10 MG TABLET PO (08:50)
[2025-07-22] MEDS: ASPIRIN 81 MG ENTERIC TABLET PO (08:50)
[2025-07-22] MEDS: ONDANSETRON INJ 4 MG/2 ML VIAL IV PUSH (08:52)
[2025-07-22] MEDS: FLUTICASONE/SALMETEROL 115-21 MCG INHALER 1 PUFF 2 PUFF INHALATION ×2 (08:57→19:50)
[2025-07-22] MEDS: POTASSIUM CHLORIDE 20 MEQ PACKET (FOR LIQUID) 40 MEQ PO (12:03)
[2025-07-22] MEDS: SODIUM CHLORIDE 0.9% IV 250 ML 30 ML IV CONT (15:49)
[2025-07-22] MEDS: TUBING, BLOOD PLUM PUMP TUBING 1 EACH XX (16:09)
--- NOTE | 2025-07-22 16:39 | P.PNIM_ITS ---
Assessment and Plan Assessment and Plan (1) Lower GI bleed: Code(s): K92.2 - Gastrointestinal hemorrhage, unspecified Status: Acute Assessment and Plan: GI consulted Plan for scope tomorrow Okay for diet now, NPO midnight Bowel prep per GI H&H q.6 (2) UTI (urinary tract infection): Code(s): N39.0 - Urinary tract infection, site not specified Status: Acute Assessment and Plan: IV Rocephin Culture and sensitivity pending (3) Pericardial effusion: Code(s): I31.39 - Other pericardial effusion (noninflammatory) Status: Acute Assessment and Plan: Small pericardial effusion. Echo pending (4) Acute blood loss anemia: Code(s): D62 - Acute posthemorrhagic anemia Status: Acute Assessment and Plan: Brilinta? ? Q.6 are H&H Transfuse for hemoglobin less than 7 or symptomatic No need for transfusion at this time Per cardiology Given patient had his stent placed almost 15 years ago, can stop Brilinta. Recommend continue aspirin 81 mg daily without interruption if possible. However if GI needs to stop aspirin acutely for a 1-2 days during evaluation and treatment of acute GI bleed, that will be okay as platelet half life is about 1 week. Do not hold aspirin for more than 1-2 days to avoid risk of stent thrombosis (5) CHF (congestive heart failure): Code(s): I50.9 - Heart failure, unspecified Status: Acute Assessment and Plan: Patient received 500 mils an ED Echocardiogram pending history of low EF Continue to monitor Currently holding Lasix due to soft blood pressures re-evaluate in a.m. (6) Opacity noted on imaging study: Code(s): R93.89 - Abnormal findings on diagnostic imaging of other specified body structures Status: Acute Assessment and Plan: Right midlung opacity on x-ray CT chest pending-non con due to patient getting a CTA of abdomen pelvis prior New 2.4 x 2.2 cm pleural-based right upper lobe mass, suspicious for bronchogenic carcinoma. With leukopenia Pulmonology consulted Patient told about findings (7) Hypertension: Code(s): I10 - Essential (primary) hypertension Status: Acute Assessment and Plan: Holding antihypertensives as blood pressure is also soft likely due to acute blood loss and dehydration (8) Type 2 diabetes mellitus: Code(s): E11.9 - Type 2 diabetes mellitus without complications Status: Acute Assessment and Plan: Accu-Cheks a.c. HS SSI Hold metformin L (9) Coronary artery disease: Code(s): I25.10 - Atherosclerotic heart disease of circle coronary artery without angina pectoris Status: Acute Assessment and Plan: ELISSA Hensley, no need to restart on discharge as it has been 15 years since his [place] Okay to restart aspirin after scope Continue metoprolol, Entresto, empagliflozin if blood pressure allows Plan Today I called [facility] for transfer, spoke Dr. Rodriguez hospitalist, since patient is not bleeding active their IR will not accept the patient for transfer and recommending capsule endoscopy for internal bleeding, patient will be seen GI and further recommendation to follow. Patient did have 2 large bloody BM and his hgb dropped to 6.8 and he was given 2 units of PRBC and now his Hgb is 7.8, Called [facility] transfer line, discussed with Dr. 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 will do nuclear study for GI bleed on Saturday and monitor, patient is clinically stable. gave updates to Hermann Ugarte will monitor. patient remains clinically stable, his hgb is stable, no new bleeding, patient is accepted by the [facility], waiting for the bed, on 07/20 patient had nuclear med study for GI bleeding and it was negative for any bleeding. patient remains clinically stable, will monitor, still no call from [facility], will monitor. 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 on 07/15/25 patient wa seen by GI and had EGD which was normal and there was upper GI bleed, colonoscopy showed Multiple wide-mouth diverticula were present in the ascending colon, in the transverse colon, in the descending colon, and in the sigmoid colon. No definite source or specific diverticulum bleeding, however there is old retained blood throughout. No blood seen coming through the ileo cecal valve. No polyps, neoplasia or colitis, Dr Pulido was concern that patient angiogram to find the source of bleeding and to transfer to [facility] for the procedure, I called the [facility] and spoke with Dr Santiago TURCIOS, he recommended to patient HH after transfusion, if the HH is dropping then he will accept the patient for the transfer, 1st repeated HH was 6.8., 2 hrs after transfusion his HH was 7.9 and 4 hr transfusion his HH is 7.7 suggesting patient is not bleeding, I have ordered another HH at 00:00 hours, again if patient HH drops will call [facility] as instructed by the GI, I did speak with Dr. Valentino and gave update what [facility] has recommended. I have instructed nursing staff to watch of any bleeding and call MD guest relations manager and or customer advisor. I have also gave updates to Dr. Liao the MD air operations manager until 7PM. Subjective Date/time seen: 07/22/25 16:39 Interval history: Blood in stool H&P-Narrative: male with past medical history CAD with stents patient on Brilinta, prior upper GI bleed, hypertension, diabetes, CHF, presents the hospital with bright red blood per rectum. Patient states that he had several bowel movements the other day and this morning that were bloody. He states that he has had several more bowel movements malaise in the hospital however he is also doing bowel prep for the scope tomorrow. Patient has no complaints of fevers chills nausea or vomiting. Patient's lab work shows leukopenia at 2.0, hemoglobin of 10.9 with previous hemoglobin being 12.5, platelets of 280, sodium of 135, BUN 27, creatinine of 0.68, glucose of 139, UA is cloudy with 2+ blood, 2+ leukocyte esterase, 21-50 rbc's 51-100 wbc's and 4+ bacteria. was consulted for lower GI bleed. CTA abdomen pelvis shows no sign of acute bleeding. Chest x-ray showed right mid lung opacity recommending CT. 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 on 07/15/25 patient wa seen by GI and had EGD which was normal and there was upper GI bleed, colonoscopy showed Multiple wide-mouth diverticula were present in the ascending colon, in the transverse colon, in the descending colon, and in the sigmoid colon. No definite source or specific diverticulum bleeding, however there is old retained blood throughout. No blood seen coming through the ileo cecal valve. No polyps, neoplasia or colitis, Dr Pulido was concern that patient angiogram to find the source of bleeding and to transfer to [facility] for the procedure, I called the [facility] and spoke with Dr Santiago TURCIOS, he recommended to patient HH after transfusion, if the HH is dropping then he will accept the patient for the transfer, 1st repeated HH was 6.8., 2 hrs after transfusion his HH was 7.9 and 4 hr transfusion his HH is 7.7 suggesting patient is not bleeding, I have ordered another HH at 00:00 hours, again if patient HH drops will call [facility] as instructed by the GI, I did speak with Dr. Valentino and gave update what [facility] has recommended. Patient did have 2 large bloody BM and his hgb dropped to 6.8 and he was given 2 units of PRBC and now his Hgb is 7.8, Called [facility] transfer line, discussed with Dr. 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 will do nuclear study for GI bleed on Saturday and monitor, patient is clinically stable. gave updates to Hermann Ugarte will monitor. patient remains clinically stable, his hgb is stable, no new bleeding, patient is accepted by the [facility], waiting for the bed, on 07/20 patient had nuclear med study for GI bleeding and it was negative for any bleeding. patient remains clinically stable, will monitor, still no call from [facility], will monitor. Today I called [facility] for transfer, spoke Dr. Rodriguez hospitalist, since patient is not bleeding active their IR will not accept the patient for transfer and recommending capsule endoscopy for internal bleeding, patient will be seen GI and further recommendation to follow. Review of Systems Review of Systems: A complete review of systems was performed and pertinent positives are reported in the HPI. Exam Narrative: Elderly frail Patient is comfortable, NAD HEENT: eyes are clear and none icteric LUNGS:CTA HEART: RR S1S2 ABD: BS+, Soft and nontender Lower extremities: no edema SKIN: nonjaundiced Neuro: grossly intact. Objective Data Vital Signs Vital Signs: Vital Signs - 24 hr 07/21/25 20:12 07/21/25 20:15 07/22/25 01:00 Temperature 36.7 C Pulse Rate 109 H 65 Respiratory Rate 20 16 Blood Pressure 94/55 L Pulse Oximetry 93 98 Oxygen Delivery Room Air Fraction of Inspired Oxygen 21 07/22/25 07:16 07/22/25 08:57 07/22/25 15:43 Temperature 36.9 C 37.0 C Pulse Rate 100 87 Respiratory Rate 20 18 Blood Pressure 120/56 L 94/53 L Pulse Oximetry 96 96 96 Oxygen Delivery Room Air Fraction of Inspired Oxygen 07/22/25 16:04 Temperature 36.9 C Pulse Rate 86 Respiratory Rate 18 Blood Pressure 104/56 L Pulse Oximetry 98 Oxygen Delivery Fraction of Inspired Oxygen Intake/Output Intake/Output: Intake & Output 07/19/25 07/20/25 07/21/25 07/22/25 23:59 23:59 23:59 23:59 Intake Total 4715.3 2662.9 1970 1802 Output Total 2600 2625 1401 700 Balance 2115.3 37.9 569 1102 Meds/Results Medications: Active Medications Generic Name Dose Route Start Last Admin Trade Name Freq PRN Reason Stop Dose Admin Acetaminophen 650 mg 07/14/25 13:19 07/20/25 16:17 Acetaminophen 325 Mg Tablet PO 650 mg Q4H PRN Administration Mild Pain (1-3) or Fever Albuterol 2 puff 07/14/25 19:25 Albuterol Sulfate (*Sp) Aerosol 1 Puff INHALATION Q4HRT PRN WHEEZE/SOB Aspirin 81 mg 07/20/25 15:15 07/22/25 08:50 Aspirin 81 Mg Enteric Tablet PO 81 mg QAM KIMBERLEY Administration Dextrose 12.5 gm 07/14/25 13:19 Dextrose 50% 25 Gm/50 Ml Syringe IV PUSH PRN PRN Hypoglycemia Protocol Empagliflozin 10 mg 07/15/25 09:00 07/22/25 08:50 Empagliflozin 10 Mg Tablet PO 10 mg DAILY KIMBERLEY Administration Ferrous Sulfate 325 mg 07/15/25 09:00 07/22/25 12:03 Ferrous Sulfate 325 Mg Tablet PO 325 mg TID KIMBERLEY Administration Glucagon 1 mg 07/14/25 13:19 Glucagon For Inj 1 Mg Vial IM PRN PRN Hypoglycemia Protocol Glucose 15 gm 07/14/25 13:19 Glucose Oral Gel 15 Gm Of Glucse In 37.5 Gm Tube PO PRN PRN Hypoglycemia Protocol Dextrose 1,000 mls @ 100 mls/hr 07/14/25 13:19 Dextrose 5% 1,000 Ml IVPB PRN PRN Hypoglycemia Protocol Sodium Chloride 250 mls @ 30 mls/hr 07/22/25 13:21 07/22/25 15:49 Normal Saline Iv IV CONT 07/22/25 21:40 30 mls/hr .Q8H20M STA Administration Insulin Aspart 2 - 5 units 07/14/25 17:00 07/22/25 11:47 Insulin Aspart (*Bkc) 100 Units/Ml SUB-Q Not Given TIDWM [facility] Protocol Latanoprost 1 drop 07/14/25 21:00 07/21/25 20:42 Latanoprost 0.005% Op Soln 2.5 Ml Btl EACH EYE 1 drop HS KIMBERLEY Administration Nitroglycerin 0.4 mg 07/14/25 19:24 Nitroglycerin Sl 0.4 Mg Tablet SUBLINGUAL Q5M PRN Chest Pain Nonformulary Drug 0 mg 07/21/25 13:15 07/21/25 16:44 Repatha (Evolocumab) SUB-Q 08/20/25 13:09 140 mg 140 Mg Q14D@0900 KIMBERLEY Administration Ondansetron HCl 4 mg 07/14/25 13:11 07/22/25 08:52 Ondansetron Inj 4 Mg/2 Ml Vial IV PUSH 4 mg Q4H PRN Administration Nausea Oxycodone/Acetaminophen 1 tablet 07/14/25 19:24 07/15/25 20:50 Oxycodone/Acetaminophen (*Crx) 5-325 Mg Tablet PO 1 tablet Q6H PRN Administration Pain Rated 6 or Greater Fluticasone/Salmeterol 2 puff 07/14/25 20:00 07/22/25 08:57 Fluticasone/Salmeterol 115-21 Mcg Inhaler 1 Puff INHALATION 2 puff Q12HRT KIMBERLEY Administration Tamsulosin HCl 0.4 mg 07/15/25 09:00 07/22/25 08:50 Tamsulosin Hcl 0.4 Mg Capsule PO 0.4 mg DAILY KIMBERLEY Administration Radiology Results: ITS Impressions Abdomen/Pelvis CTA 07/14/25 12:36 IMPRESSION: 1. No evidence of active GI bleed or other acute abnormality. Chest X-Ray 07/14/25 13:21 IMPRESSION: 1. Recommend CT chest to better evaluate right midlung opacity. Chest CT 07/14/25 17:50 IMPRESSION: 1. New 2.4 x 2.2 cm pleural-based right upper lobe mass, suspicious for bronchogenic carcinoma. 2: Hiatal hernia with fluid and debris in the esophagus which is mildly thickened, suspicious for esophagitis secondary to reflux. 3: Small pericardial effusion. Abdomen/Pelvis CT 07/17/25 09:31 IMPRESSION: 1. No findings of active GI bleed. 2. Mild gastritis not excluded. 3. Additional findings as above. GI Bleed Scan Nuclear Medicine 07/19/25 13:12 IMPRESSION: No evidence of GI bleed. Labs Labs: Laboratory Results - last 24 hr 07/21/25 07/21/25 07/22/25 16:36 21:32 03:23 WBC 1.4 L* RBC 2.66 L Hgb 7.0 L Hct 23.4 L MCV 88.0 MCH 26.3 MCHC 29.9 L RDW 16.8 H Plt Count 193 MPV 11.1 H Sodium 136 L Potassium 3.4 Chloride 110 H Carbon Dioxide 22 Anion Gap 4 BUN 6 L Creatinine 0.51 L Estim Creat Clear Calc 99 Estimated GFR > 60 Glucose 108 POC Capillary Glucose 130 H 130 H Calcium 8.1 L Magnesium 1.9 Blood Type Antibody Screen Crossmatch 07/22/25 07/22/25 07/22/25 07:13 11:18 13:34 WBC RBC Hgb Hct MCV MCH MCHC RDW Plt Count MPV Sodium Potassium Chloride Carbon Dioxide Anion Gap BUN Creatinine Estim Creat Clear Calc Estimated GFR Glucose POC Capillary Glucose 112 H 126 H Calcium Magnesium Blood Type A Positive Antibody Screen Negative Crossmatch See Detail 07/22/25 15:51 WBC RBC Hgb Hct MCV MCH MCHC RDW Plt Count MPV Sodium Potassium Chloride Carbon Dioxide Anion Gap BUN Creatinine Estim Creat Clear Calc Estimated GFR Glucose POC Capillary Glucose 158 H Calcium Magnesium Blood Type Antibody Screen Crossmatch Quality VTE Prophylaxis VTE prophylaxis: mechanical ordered
--- NOTE | 2025-07-22 18:27 | PC.NURSE ---
report given to Sonny on 3 medical
--- NOTE | 2025-07-22 19:00 | ADMGEN ---
This patient, Phill Monae, was admitted to [facility] Surg Room 306-01. Patient/family oriented to hospital policies and general routines including ID bracelet, bed and alarms, visiting hours, pain management, procedures, bathroom and other care routines, personal items, smoking policy, room service/diet, and visiting hours. Information on how to activate the Rapid Response Team has been discussed. Patient/Family are encouraged to report perceived risks to care and to ask questions if they do not understand what they are told or what they should do. report received from Becca GOMEZ in IMU
[2025-07-22] MEDS: LATANOPROST 0.005% OP SOLN 2.5 ML BTL 1 DROP EACH EYE (22:18)
[2025-07-23 05:45] VITALS: BP 103/49; PULSE 83; RESP 20; TEMP 36.7; O2SAT 94
[2025-07-23 06:18] LABS: Hematocrit 25.9 % (42.0-52.0); Hemoglobin 7.9 g/dL (14.0-18.0); Mean Corpuscular HGB Conc 30.5 g/dl (32-36); Mean Corpuscular Hemoglobin 27.1 pg (26-34); Mean Corpuscular Volume 88.7 fl (80-100); Platelet Count Result 177 k/mm3 (150-375); Red Blood Count 2.92 M/mm3 (4.6-6.20)
[2025-07-23 06:41] LABS: Anion Gap 0 mmol/L (4-12); Blood Urea Nitrogen 9 mg/dL (9-20); Calcium 8.4 mg/dL (8.4-10.2); Carbon Dioxide 25 mmol/L (22-30); Chloride 109 mmol/L (98-107); Estimated CRCL calculation 82 ml/min; Estimated Glomerular Filt Rate > 60; Glucose 98 mg/dL (65-110); Magnesium 2.2 mg/dL (1.6-2.3); Potassium 4.0 mmol/L (3.4-5.0); Sodium 134 mmol/L (137-145)
[2025-07-23 06:45] LABS: White Blood Count 1.5 K/mm3 (4.5-10.0)
[2025-07-23] MEDS: FLUTICASONE/SALMETEROL 115-21 MCG INHALER 1 PUFF 2 PUFF INHALATION (08:03)
[2025-07-23] MEDS: ASPIRIN 81 MG ENTERIC TABLET PO (08:44)
[2025-07-23] MEDS: EMPAGLIFLOZIN 10 MG TABLET PO (08:44)
[2025-07-23] MEDS: TAMSULOSIN HCL 0.4 MG CAPSULE PO (08:44)
[2025-07-23] MEDS: FERROUS SULFATE 325 MG TABLET PO ×2 (08:44→13:08)
--- NOTE | 2025-07-23 11:49 | P.PNIM_ITS ---
Assessment and Plan Assessment and Plan (1) Lower GI bleed: Code(s): K92.2 - Gastrointestinal hemorrhage, unspecified Status: Acute Assessment and Plan: GI consulted Plan for scope tomorrow Okay for diet now, NPO midnight Bowel prep per GI H&H q.6 (2) UTI (urinary tract infection): Code(s): N39.0 - Urinary tract infection, site not specified Status: Acute Assessment and Plan: IV Rocephin Culture and sensitivity pending (3) Pericardial effusion: Code(s): I31.39 - Other pericardial effusion (noninflammatory) Status: Acute Assessment and Plan: Small pericardial effusion. Echo pending (4) Acute blood loss anemia: Code(s): D62 - Acute posthemorrhagic anemia Status: Acute Assessment and Plan: Brilinta? ? Q.6 are H&H Transfuse for hemoglobin less than 7 or symptomatic No need for transfusion at this time Per cardiology Given patient had his stent placed almost 15 years ago, can stop Brilinta. Recommend continue aspirin 81 mg daily without interruption if possible. However if GI needs to stop aspirin acutely for a 1-2 days during evaluation and treatment of acute GI bleed, that will be okay as platelet half life is about 1 week. Do not hold aspirin for more than 1-2 days to avoid risk of stent thrombosis (5) CHF (congestive heart failure): Code(s): I50.9 - Heart failure, unspecified Status: Acute Assessment and Plan: Patient received 500 mils an ED Echocardiogram pending history of low EF Continue to monitor Currently holding Lasix due to soft blood pressures re-evaluate in a.m. (6) Opacity noted on imaging study: Code(s): R93.89 - Abnormal findings on diagnostic imaging of other specified body structures Status: Acute Assessment and Plan: Right midlung opacity on x-ray CT chest pending-non con due to patient getting a CTA of abdomen pelvis prior New 2.4 x 2.2 cm pleural-based right upper lobe mass, suspicious for bronchogenic carcinoma. With leukopenia Pulmonology consulted Patient told about findings (7) Hypertension: Code(s): I10 - Essential (primary) hypertension Status: Acute Assessment and Plan: Holding antihypertensives as blood pressure is also soft likely due to acute blood loss and dehydration (8) Type 2 diabetes mellitus: Code(s): E11.9 - Type 2 diabetes mellitus without complications Status: Acute Assessment and Plan: Accu-Cheks a.c. HS SSI Hold metformin L (9) Coronary artery disease: Code(s): I25.10 - Atherosclerotic heart disease of [place] coronary artery without angina pectoris Status: Acute Assessment and Plan: ELISSA Hensley, no need to restart on discharge as it has been 15 years since his LA Okay to restart aspirin after scope Continue metoprolol, Entresto, empagliflozin if blood pressure allows Plan [facility] called for transfer, spoke Dr. Rodriguez hospitalist, since patient is not bleeding active their IR will not accept the patient for transfer and recommending capsule endoscopy for internal bleeding, patient will be seen G I and further recommendation to follow. Patient did have 2 large bloody BM and his hgb dropped to 6.8 and he was given 2 units of PRBC and now his Hgb is 7.8, Called [facility] transfer line, discussed with Dr. 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 will do nuclear study for GI bleed on Saturday and monitor, patient is clinically stable. gave updates to Hermann Ugarte will monitor. patient remains clinically stable, his hgb is stable, no new bleeding, patient is [facility], waiting for the bed, on 07/20 patient had nuclear med study for GI bleeding and it was negative for any bleeding. patient remains clinically stable, will monitor, still no call from [facility], will monitor. 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 07/15/25 patient wa seen by GI and had EGD which was normal and there was upper GI bleed, colonoscopy showed Multiple wide-mouth diverticula were present in the ascending colon, in the transverse colon, in the descending colon, and in the sigmoid colon. No definite source or specific diverticulum bleeding, however there is old retained blood throughout. No blood seen coming through the ileo cecal valve. No polyps, neoplasia or colitis, Dr Pulido was concern that patient angiogram to find the source of bleeding and to transfer to [facility] for the procedure, I called the [facility] and spoke with Dr Santiago TURCIOS, he recommended to patient HH after transfusion, if the HH is dropping then he will accept the patient for the transfer, 1st repeated HH was 6.8., 2 hrs after transfusion his HH was 7.9 and 4 hr transfusion his HH is 7.7 suggesting patient is not bleeding, I have ordered another HH at 00:00 hours, again if patient HH drops will call [facility] as instructed by the GI, I did speak with Dr. Valentino and gave update what [facility] has recommended. I have instructed nursing staff to watch of any bleeding and call MD telemetry monitor and or metal weather stripper. I have also gave updates to Dr. Liao the MD inspector canned food reconditioning until 7PM. Subjective Date/time seen: 07/23/25 11:49 Interval history: No BM for 2 days. Blood count stable. Patient notes an 80 pound weight loss in the last year Interested in a biopsy. Spoke with interventional radiology. Not the best position. Possible pneumonia. Would be a Percutaneous biopsy, not a bronch. 3-4 weeks from now if not resolving with treatment for pneumonia. 5 days of augmentin/azthromycin. Left a message with Dr. Ellsworth's office for follow up. Family would like home health with labs. CBC in 1 week and then every 2 weeks for now. Also PT/OT RUE doppler today for swelling Review of Systems Review of Systems: A complete review of systems was performed and pertinent positives are reported in the HPI. Exam Narrative: General - Awake and alert. No acute distress Eyes - PERRLA, EOM intact ENT - No thrush, No erythema Neck - No noticeable or palpable swelling Lymph Nodes - No lymphadenopathy Cardiovascular - RRR no m/r/g, no JVD Lungs: Clear to auscultation, No wheezing, use of accessory muscles, no crackles Skin - Skin warm and dry, no wounds or rashes Abdomen - Normal bowel sounds, abdomen soft and nontender Extremities - No edema, cyanosis or clubbing Musculoskeletal - 5/5 strength, normal range of motion, no swollen or erythematous joints. Neurological ? Alert and oriented x 3, CN 2-12 grossly intact. Psych: Normal mood and affect Objective Data Vital Signs Vital Signs: Vital Signs - 24 hr 07/22/25 15:43 07/22/25 16:00 07/22/25 16:04 Temperature 98.6 F 98.5 F 98.5 F Pulse Rate 87 93 86 Respiratory Rate 18 18 18 Blood Pressure 94/53 L 119/65 104/56 L Pulse Oximetry 96 97 98 Oxygen Delivery Fraction of Inspired Oxygen 07/22/25 17:04 07/22/25 18:02 07/22/25 19:50 Temperature 98.5 F 98.9 F Pulse Rate 93 98 90 Respiratory Rate 18 18 18 Blood Pressure 119/65 115/54 L Pulse Oximetry 97 98 92 Oxygen Delivery Room Air Fraction of Inspired Oxygen 21 07/22/25 19:50 07/22/25 20:00 07/22/25 20:05 Temperature 99 F Pulse Rate 90 91 Respiratory Rate 18 20 Blood Pressure 116/57 L Pulse Oximetry 96 Oxygen Delivery Room Air Fraction of Inspired Oxygen 07/23/25 05:45 Temperature 98.1 F Pulse Rate 83 Respiratory Rate 20 Blood Pressure 103/49 L Pulse Oximetry 94 Oxygen Delivery Fraction of Inspired Oxygen Intake/Output Intake/Output: Intake & Output 07/20/25 07/21/25 07/22/25 07/23/25 23:59 23:59 23:59 23:59 Intake Total 2662.9 1970 2557 390 Output Total 2625 1401 701 150 Balance 37.9 569 1856 240 Meds/Results Medications: Active Medications Generic Name Dose Route Start Last Admin Trade Name Freq PRN Reason Stop Dose Admin Acetaminophen 650 mg 07/14/25 13:19 07/20/25 16:17 Acetaminophen 325 Mg Tablet PO 650 mg Q4H PRN Administration Mild Pain (1-3) or Fever Albuterol 2 puff 07/14/25 19:25 Albuterol Sulfate (*Sp) Aerosol 1 Puff INHALATION Q4HRT PRN WHEEZE/SOB Aspirin 81 mg 07/20/25 15:15 07/23/25 08:44 Aspirin 81 Mg Enteric Tablet PO 81 mg QAM KIMBERLEY Administration Dextrose 12.5 gm 07/14/25 13:19 Dextrose 50% 25 Gm/50 Ml Syringe IV PUSH PRN PRN Hypoglycemia Protocol Empagliflozin 10 mg 07/15/25 09:00 07/23/25 08:44 Empagliflozin 10 Mg Tablet PO 10 mg DAILY KIMBERLEY Administration Ferrous Sulfate 325 mg 07/15/25 09:00 07/23/25 08:44 Ferrous Sulfate 325 Mg Tablet PO 325 mg TID KIMBERLEY Administration Glucagon 1 mg 07/14/25 13:19 Glucagon For Inj 1 Mg Vial IM PRN PRN Hypoglycemia Protocol Glucose 15 gm 07/14/25 13:19 Glucose Oral Gel 15 Gm Of Glucse In 37.5 Gm Tube PO PRN PRN Hypoglycemia Protocol Dextrose 1,000 mls @ 100 mls/hr 07/14/25 13:19 Dextrose 5% 1,000 Ml IVPB PRN PRN Hypoglycemia Protocol Insulin Aspart 2 - 5 units 07/14/25 17:00 07/23/25 08:44 Insulin Aspart (*Bkc) 100 Units/Ml SUB-Q Not Given TIDWM [facility] Protocol Latanoprost 1 drop 07/14/25 21:00 07/22/25 22:18 Latanoprost 0.005% Op Soln 2.5 Ml Btl EACH EYE 1 drop HS KIMBERLEY Administration Nitroglycerin 0.4 mg 07/14/25 19:24 Nitroglycerin Sl 0.4 Mg Tablet SUBLINGUAL Q5M PRN Chest Pain Nonformulary Drug 0 mg 07/21/25 13:15 07/21/25 16:44 Repatha (Evolocumab) SUB-Q 08/20/25 13:09 140 mg 140 Mg Q14D@0900 KIMBERLEY Administration Ondansetron HCl 4 mg 07/14/25 13:11 07/22/25 08:52 Ondansetron Inj 4 Mg/2 Ml Vial IV PUSH 4 mg Q4H PRN Administration Nausea Oxycodone/Acetaminophen 1 tablet 07/14/25 19:24 07/15/25 20:50 Oxycodone/Acetaminophen (*Crx) 5-325 Mg Tablet PO 1 tablet Q6H PRN Administration Pain Rated 6 or Greater Fluticasone/Salmeterol 2 puff 07/14/25 20:00 07/23/25 08:03 Fluticasone/Salmeterol 115-21 Mcg Inhaler 1 Puff INHALATION 2 puff Q12HRT KIMBERLEY Administration Tamsulosin HCl 0.4 mg 07/15/25 09:00 07/23/25 08:44 Tamsulosin Hcl 0.4 Mg Capsule PO 0.4 mg DAILY KIMBERLEY Administration Radiology Results: ITS Impressions Abdomen/Pelvis CTA 07/14/25 12:36 IMPRESSION: 1. No evidence of active GI bleed or other acute abnormality. Chest X-Ray 07/14/25 13:21 IMPRESSION: 1. Recommend CT chest to better evaluate right midlung opacity. Chest CT 07/14/25 17:50 IMPRESSION: 1. New 2.4 x 2.2 cm pleural-based right upper lobe mass, suspicious for bronchogenic carcinoma. 2: Hiatal hernia with fluid and debris in the esophagus which is mildly thickened, suspicious for esophagitis secondary to reflux. 3: Small pericardial effusion. Abdomen/Pelvis CT 07/17/25 09:31 IMPRESSION: 1. No findings of active GI bleed. 2. Mild gastritis not excluded. 3. Additional findings as above. GI Bleed Scan Nuclear Medicine 07/19/25 13:12 IMPRESSION: No evidence of GI bleed. Labs Labs: Laboratory Results - last 24 hr 07/22/25 07/22/25 07/22/25 13:34 15:51 20:08 WBC RBC Hgb Hct MCV MCH MCHC RDW Plt Count MPV Sodium Potassium Chloride Carbon Dioxide Anion Gap BUN Creatinine Estim Creat Clear Calc Estimated GFR Glucose POC Capillary Glucose 158 H 142 H Calcium Magnesium Blood Type A Positive Antibody Screen Negative Crossmatch See Detail 07/23/25 07/23/25 05:46 07:56 WBC 1.5 L* RBC 2.92 L Hgb 7.9 L Hct 25.9 L MCV 88.7 MCH 27.1 MCHC 30.5 L RDW 16.6 H Plt Count 177 MPV 10.7 H Sodium 134 L Potassium 4.0 Chloride 109 H Carbon Dioxide 25 Anion Gap 0 L BUN 9 Creatinine 0.63 L Estim Creat Clear Calc 82 Estimated GFR > 60 Glucose 98 POC Capillary Glucose 90 Calcium 8.4 Magnesium 2.2 Blood Type Antibody Screen Crossmatch Quality VTE Prophylaxis VTE prophylaxis: mechanical ordered Hospitalist MIPS Advance Care Plan I have confirmed that the patient's Advanced Care Plan is present, code status is documented, or surrogate decision maker is listed in patient medical record.: Yes Medication Reconciliation The patient is not eligible for med reconciliation; the patient is in a emergent medical situation where delaying treatment would jeopardize the patients health.: Yes
[2025-07-23] MEDS: AZITHROMYCIN 500 MG TABLET PO (13:08)
[2025-07-23 14:00] VITALS: BP 139/57; PULSE 98; RESP 20; TEMP 36.9; O2SAT 97
--- NOTE | 2025-08-04 05:44 | P.DS_ITS ---
DS: Admitting Diagnosis Discharge Date 07/23/25 Admitting Diagnosis Lower GI bleed UTI DS: Discharge Diagnosis Discharge Diagnosis (1) CHF (congestive heart failure): Code(s): I50.9 - Heart failure, unspecified Status: Acute (2) Opacity noted on imaging study: Code(s): R93.89 - Abnormal findings on diagnostic imaging of other specified body structures Status: Acute (3) Lower GI bleed: Code(s): K92.2 - Gastrointestinal hemorrhage, unspecified Status: Acute (4) Hemorrhage of large intestine due to diverticular disease: Code(s): K57.31 - Diverticulosis of large intestine without perforation or abscess with bleeding Status: Acute (5) Pericardial effusion: Code(s): I31.39 - Other pericardial effusion (noninflammatory) Status: Acute (6) Deep vein thrombosis (DVT) of brachial vein of right upper extremity: Code(s): I82.621 - Acute embolism and thrombosis of deep veins of right upper extremity Status: Acute (7) Pneumonia: Code(s): J18.9 - Pneumonia, unspecified organism Status: Acute DS: Summary Hospital Course Reason for hospitalization: Copied from [facility] 07/23 male with past medical history CAD with stents patient on Brilinta, prior upper GI bleed, hypertension, diabetes, CHF, presents the hospital with bright red blood per rectum. Patient states that he had several bowel movements the other day and this morning that were bloody. He states that he has had several more bowel movements malaise in the hospital however he is also doing bowel prep for the scope tomorrow. Patient has no complaints of fevers chills nausea or vomiting. Patient's lab work shows leukopenia at 2.0, hemoglobin of 10.9 with previous hemoglobin being 12.5, platelets of 280, sodium of 135, BUN 27, creatinine of 0.68, glucose of 139, UA is cloudy with 2+ blood, 2+ leukocyte esterase, 21-50 rbc's 51-100 wbc's and 4+ bacteria. was consulted for lower GI bleed. CTA abdomen pelvis shows no sign of acute bleeding. Chest x-ray showed right mid lung opacity recommending CT. Hospital Course: Assessment and Plan Lower GI bleed: Patient did have 2 large bloody BM and his hgb dropped to 6.8 and he was given 2 units of PRBC and Hgb improved, up to 7.8, Had considered transfer to [place] or [facility] but Hgb stabilized. 07/15/25 patient was seen by GI and had EGD which was normal and there was upper GI bleed, colonoscopy showed Multiple wide-mouth diverticula were present in the ascending colon, in the transverse colon, in the descending colon, and in the sigmoid colon. No definite source or specific diverticulum bleeding, however there is old retained blood throughout. No blood seen coming through the ileo cecal valve. No polyps, neoplasia or colitis, Dr Pulido was concern that patient angiogram to find the source of bleeding and to transfer to [facility] for the procedure, repeat CT scan no obvious active bleeding and GIB scan without active bleeding Nuc Med GI bleed scan no evidence of GI bleeding Blood count stable UTI (urinary tract infection): Started IV Rocephin, continued Augmentin for discharge Recent urine culture 07/14 grew klebsiella that was resistant to ampicillin. No dysuria during admission but antibiotics Pericardial effusion: Small pericardial effusion. Echo pending Acute blood loss anemia: Transfuse for hemoglobin less than 7 or symptomatic No need for transfusion at this time Per cardiology Given patient had his stent placed almost 15 years ago, can stop Brilinta. Recommend continue aspirin 81 mg daily without interruption if possible. However if GI needs to stop aspirin acutely for a 1-2 days during evaluation and treatment of acute GI bleed, that will be okay as platelet half life is about 1 week. Do not hold aspirin for more than 1-2 days to avoid risk of stent thrombosis CHF (congestive heart failure): Patient received 500 mils an ED Euvolemic on exam, held Lasix due to soft blood pressures 07/15 TTE showed LVEF 25-30%. The inferoseptum is thinned and akinetic. The remaining vang are mildly hypokinetic. 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 With leukopenia Patient aware of findings and notes an 80 pound weight loss in the last year He is Interested in a biopsy. Spoke with interventional radiology. Position is difficult. Would be a Percutaneous biopsy, not a bronch. Since there is the possibility of pneumonia, planning to treat pneumonia first and then likely biopsy 3-4 weeks from now if not resolving with treatment for pneumonia. 5 days of augmentin/azthromycin. Left a message with Dr. Ellsworth's office for follow up. Family would like home health with labs. CBC in 1 week and then every 2 weeks for now. Also PT/OT Right Arm swelling DVT RUE doppler was done for swelling. Monitoring off anticoagulation given risk for bleeding. Swelling was improving. There is thrombus with diminished flow in the patent brachial veins, the remaining visualized deep venous system is unremarkable. There is thrombus noted within the cephalic vein. --Consider follow up doppler to his right arm for brachial thrombus, cephalic vein is a superficial thrombus. Overall lower risk than LE but discussed monitoring for increasing swelling and shortness of breath --High risk for anticoagulation Hypertension: Held antihypertensives as blood pressure is also soft likely due to acute blood loss and dehydration Type 2 diabetes mellitus: Accu-Cheks a.cCar HS. SSI during admission Held metformin and resumed at discharge Coronary artery disease: Cardiology consulted. ELISSA Hensley, no need to restart on discharge as it has been 15 years since his ID Restarted aspirin after scope Continue metoprolol, Entresto, empagliflozin as blood pressure allows Status at Discharge Cognitive/behavioral status at discharge: A&Ox4 Time Spent with Patient Time attestation: Total time spent providing and/or coordinating discharge services: Exam Narrative: General - Awake and alert. No acute distress, Eyes - PERRLA, EOM intact ENT - No thrush, No erythema Neck - No noticeable or palpable swelling Lymph Nodes - No lymphadenopathy Cardiovascular - RRR no m/r/g, no JVD Lungs: Clear to auscultation, No wheezing, use of accessory muscles, no crackles Skin - Skin warm and dry, no wounds or rashes Abdomen - Normal bowel sounds, abdomen soft and nontender Extremities - No edema, cyanosis or clubbing Musculoskeletal - 5/5 strength, normal range of motion, no swollen or erythematous joints. Neurological ? Alert and oriented x 3, CN 2-12 grossly intact. Psych: Normal mood and affect Discharge Plan Discharge Attending physician on discharge: Brittany Montoya Consulting providers: Arjun Valentino; Tootie Daily; Elza Carter; Hipolito Ochoa; Uche Vidal; Harjeet Hanson; Dany Chaudhari; Rosa Garces; Hermann Medina; Bret Marcelo; Max Platt; Abdelrahman Shipley; Rui Clark Discharging Clinician: Brittany Montoya Anticipated Discharge Date/Time: 07/23/25 13:31 Patient Disposition: Home with Home Health Service Activity: may shower Diet: diabetic Discharge Instructions: Follow up with your PCP in 1-2 weeks. Follow up with home health, PT/OT. CBC with diff and BMP in 1 week and 3 weeks. Home health to draw if possible Follow up with Dr. Ellsworth, oncology for the abnormal area/possible mass to the right upper lobe of your lung. Discussed with interventional radiolology and you should have repeat imaging/biopsy in 3-4 weeks if not improving after antibiotics Follow up with GI, Dr. Urias in the office, 2-4 weeks. I spoke with them and you do not need to follow up at [facility] at this point. Continue Aspirin. STOPPED BRILLINTA Discuss follow up with urology and cardiology with PCP, nonurgent follow up Ultrasound to the right arm showed a thrombus of the cephallic vein. Monitor for worsening. Can discuss repeat ultrasound with PCP. If continues to improve, may not need one Continue to monitor weight. Can give furosemide twice a day as needed for swelling or shortness of breath. Hold for dizziness, low blood pressure if weight is unchanged and no swelling. Patient Instructions: Antibiotic Form, How to Stop Smoking (DC), Gastrointestinal Bleeding (GEN), Low Fiber Diet (GEN), Diverticulitis Diet (GEN) Patient Language: Eritrean Stand Alone Forms: General Discharge Information Follow-up/Referrals: Rui Ellsworth MD [Physician, Hematology] - 4 Weeks Ian Jaeger MD [Primary Care Provider, Internal Medicine] - 2 Weeks Arjun Valentino MD [Physician, Gastroenterology] - 4 Weeks Discharge Medications: New amoxicillin-pot clavulanate 875-125 mg tablet 1 tablet PO Q12H Qty: 9 0RF furosemide [Lasix] 40 mg tablet 40 mg PO BID PRN (Reason: edema) Qty: 60 0RF Rx Instructions: For swelling or shortness of breath potassium chloride 10 mEq capsule, extended release 10 meq PO BID PRN (Reason: Take with furosemide ) Qty: 60 0RF Continued aspirin 81 mg tablet,delayed release (DR/EC) 81 mg PO DAILY Patient Comments: on provided med list latanoprost 0.005 % drops 1 drp EACH EYE QPM nitroglycerin 0.4 mg tablet, sublingual 0.4 mg sublingual Q5M PRN (Reason: Chest Pain) Rx Instructions: do not exceed 3 doses per episode Entresto 24-26 mg tablet 1 tablet PO BID Patient Comments: on provided med list fluticasone propion-salmeterol [Advair Diskus] 250-50 mcg/dose blister with device 1 inh inhalation BID (DME) OneTouch Ultra Test Strip See Rx Instructions .Route Rx Instructions: As directed tamsulosin 0.4 mg capsule 0.4 mg PO DAILY metformin 500 mg tablet See Rx Instructions .ROUTE .COMPLEX Dose Instruction: TAKE 2 TABLETS IN THE MORNING AND 1 TABLET IN THE EVENING Rx Instructions: Take 2 tablets in the AM and 1 tab in the PM albuterol sulfate 90 mcg/actuation HFA aerosol inhaler See Rx Instructions .ROUTE .COMPLEX Qty: 25.5 2RF Dose Instruction: 2 PUFF INHALED EVERY 4 HOURS NEEDED FOR SHORTNESS OF BREATH OR WHEEZING Rx Instructions: 2 PUFF INHALED EVERY 4 HOURS NEEDED FOR SHORTNESS OF BREATH OR WHEEZING Jardiance 10 mg Tablet 10 mg PO DAILY Qty: 30 0RF pantoprazole 40 mg tablet,delayed release (DR/EC) 40 mg PO BID Qty: 60 0RF Repatha Syringe 140 mg/mL syringe See Rx Instructions .ROUTE .COMPLEX Rx Instructions: 140 mg subcutaneously every 14 days Discontinued Brilinta 60 mg tablet 60 mg PO Q12H potassium chloride 20 mEq tablet extended release 20 meq PO DAILY loratadine [Claritin] 10 mg tablet 10 mg PO DAILY furosemide 40 mg tablet See Rx Instructions .ROUTE .COMPLEX Qty: 180 2RF Dose Instruction: TAKE 1 TABLET BY MOUTH TWICE A DAY Rx Instructions: TAKE 1 TABLET BY MOUTH TWICE A DAY ferrous sulfate 325 mg (65 mg iron) Tablet,Delayed Release (Dr/Ec) 325 mg PO TID Patient Comments: two in the morning, one at night Rx Instructions: two in AM, one at night No Action oxycodone-acetaminophen [Percocet] 5-325 mg tablet 1 tablet PO Q6H PRN (Reason: pain) Qty: 30 0RF ferrous sulfate 325 mg (65 mg iron) tablet,delayed release (DR/EC) 325 mg PO BID Qty: 30 0RF Patient Comments: two in the morning, one at night metoprolol succinate 25 mg tablet extended release 24 hr 12.5 mg PO QPM miconazole nitrate 2 % cream 1 applic topical DAILY Triad Wound Dressing Paste 1 applic topical DAILY acetaminophen [Tylenol Extra Strength] 500 mg tablet 1,000 mg PO Q6H PRN cyanocobalamin (vitamin B-12) [Vitamin B-12] 500 mcg tablet 500 mcg PO DAILY [id number]-Itzsduuvr serr 1,500-400-100 mg-unit-mg tablet 1 tablet PO DAILY Rx Instructions: give after food/meal Other Ambulatory Orders: Basic Metabolic Panel (Routine) Timeframe: 3 Weeks Location: Outside Lab Facility Ordered By: Brittany Montoya Complete Blood Count with Diff (Routine) Timeframe: 3 Weeks Location: Determined by Patient Ordered By: Brittany Montoya Date of admission: 07/14/25 13:12 Primary Care Provider: Ian Jaeger Admitting Provider: Meghna Zuluaga Attending physician on admission: Brittany Montoya Condition: Serious Hospitalist MIPS Heart Failure (Exclusion) Patient has history of Heart Transplant or Left Ventricular Assistive Device?: No IF YES, STOP HERE Heart Failure (Qualifier) Patient has current or prior documentation of LVEF less than or equal to 40%, or mod/servere depressed LVSF?: Yes IF NO, STOP HERE If Yes, Heart Failure (Qualifier) Patient was prescribed or already taking an Angiotensin-Converting Enzyme (DELICIA) Inhibitor, or Antiotensin Receptor Simone (ARB): No Patient was prescribed or already taking bisoprolol, carvedilol, or sustained release metoprolol succinate: Yes If Medications not prescribed/taking Reason patient not prescribed/taking DELICIA or ARB: Medical reasons: allergy, intolerance, contraindication or other
== END 2025-07-23 16:41 | disposition home health service (06) | DRG 377 ==
LOC: ANHED 13:46 → ANHIMU 13:57 → ANH3MEDSUR 07-22 18:42
PROVIDERS: General Practice; Internal Medicine Gastroenterology; Nurse Practitioner Family; Nurse Practitioner Gerontology; Admitting Provider Family Medicine; Emergency Provider Emergency Medicine; PCP Emergency Medicine; Visit Provider Nurse Practitioner Acute Care
PROC: 0DJ08ZZ Inspection of Upper Intestinal Tract, Via Natural or Artificial Opening Endoscopic (ICD-10-PCS; CPT 45378; principal; 2025-07-15 14:15)
DX: K57.31 Diverticulosis of large intestine without perforation or abscess with bleeding (principal); J18.9 Pneumonia, unspecified organism; D62 Acute posthemorrhagic anemia; I31.39 Other pericardial effusion (noninflammatory); N39.0 Urinary tract infection, site not specified; I50.22 Chronic systolic (congestive) heart failure; I42.9 Cardiomyopathy, unspecified; I82.621 Acute embolism and thrombosis of deep veins of right upper extremity; I82.611 Acute embolism and thrombosis of superficial veins of right upper extremity; K62.5 Hemorrhage of anus and rectum; K44.9 Diaphragmatic hernia without obstruction or gangrene; I11.0 Hypertensive heart disease with heart failure; E11.9 Type 2 diabetes mellitus without complications; I95.9 Hypotension, unspecified; I25.10 Atherosclerotic heart disease of native coronary artery without angina pectoris; R93.89 Abnormal findings on diagnostic imaging of other specified body structures; E86.0 Dehydration; M17.0 Bilateral primary osteoarthritis of knee; M47.27 Other spondylosis with radiculopathy, lumbosacral region; Z95.5 Presence of coronary angioplasty implant and graft; Z87.11 Personal history of peptic ulcer disease; I25.2 Old myocardial infarction; Z87.891 Personal history of nicotine dependence; Z79.02 Long term (current) use of antithrombotics/antiplatelets; Z79.82 Long term (current) use of aspirin
CPT/HCPCS: 36415; 36430; 71045; 71250; 74174; 74178; 78278; 80048; 80053; 81001; 82948; 83690; 83735; 85014; 85018; 85025; 85027; 85610; 85730; 86850; 86900; 86901; 86923; 87086; 87186; 87493; 93005; 93971; 94640; 96374; 96375; 97162; 97166; 99285; A9270; A9560; C8929; J0696; J1815; J2405; J2470; J7030; J7050; J7120; P9016; P9047; Q9957; Q9967

== ENCOUNTER 2025-07-30 10:36 | Outpatient (NON) | payer MEDICARE, OTHER, SELFPAY ==
[2025-07-30 10:50] LABS: Hematocrit 32.7 % (42.0-52.0); Hemoglobin 9.8 g/dL (14.0-18.0); Immature Granulocyte Percent A 1.5 % (0-0.5); Lymphocytes Absolute Auto 0.82 K/mm3 (0.9-3.2); Mean Corpuscular HGB Conc 30.0 g/dl (32-36); Mean Corpuscular Hemoglobin 26.1 pg (26-34); Mean Corpuscular Volume 87.0 fl (80-100); Nucleated Red Blood Cells Absolute Auto 0.000 K/mm3 (0.0-0.012); Nucleated Red Blood Cells Perc 0.0 % (0.0-0.2); Platelet Count Result 273 k/mm3 (150-375); Red Blood Count 3.76 M/mm3 (4.6-6.20)
--- OUTSIDE RECORDS SUMMARY | 2025-07-30 11:09 | XMS_ITS | Encounter Summary ---
Author Organization [facility] Address [address] [place] [address] Care Team Providers Care Primer Inserting Machine Operator Name Role Phone No, Physician Primary Care Provider [phone] Rinku Glover MD Primary Care Provider [phone] Ian Jaeger MD Primary Care Provide r Encounter Details Date Type Department Care Team (Late st Contact Info) Description 08/23/2016 Orders Only [facility] ProviderAyala MD [address] [place] [id number] Social History Tobacco Use Types Packs/Day Years Used Date Smoking Tobacco: Former Alcohol Use Standard Drinks/Week Comments No 0 (1 standard drink = 0.6 oz pur e alcohol) Sex and Gender Information Value Date Recorded Sex Assigned at Not on file 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
--- OUTSIDE RECORDS SUMMARY | 2025-07-30 11:09 | XMS_ITS | Clinical Summary ---
Author Organization [facility] Address [address] [place] [address] Care Team Providers Care Field Spec Name Role Phone Ian Jaeger MD Primary Care Provider [phone] Allergies Active Allergy Reactions Criticality Noted Date [...] Department Care Team Description 07/13/2025 4:30 PM TURKEY ROLL MAKER Telephone Check Up [facility] Oncology and Hematology - [address] [place] [address] Rui Ellsworth MD Chronic anemia (Primary Dx) 07/13/2025 External Device Data STL ABSTRACTION Provider, Abstract 07/05/2025 Orders Only [facility] Oncology and Hematology [address] [place] [address] Rui Ellsworth MD 06/02/2025 External Device Data [...] Care Team (Late st Contact Info) Description 09/03/2025 10:00 AM TURKEY ROLL MAKER Office Visit [facility] Oncology and Hematology [place] [address] [place] [address] Rui Ellsworth MD [address] [place] [address] [employer] [address] [place] [phone] 12/09/2025 11:45 AM CDT Office Visit [facility] Oncology and Hematology [facility] [address] [place] [address] Rui Ellsworth MD [address] [place] [address] [employer] [address] [place] [phone] Health Maintenance Due Date Last Done Comments [...] BASIC METABOLIC PANEL Routine 07/02/2025 12:46 PM TURKEY ROLL MAKER FLOW CYTOMETRY REPORT Routine 07/02/2025 11:39 AM TURKEY ROLL MAKER from Last 3 Months Results * BASIC METABOLIC PANEL (07/02/2025 12:46 PM TURKEY ROLL MAKER) Blood us Rui Ellsworth MD CHEMISTRY ORDERABLES Final Resu lt * FLOW CYTOMETRY REPORT (07/02/2025 11:39 AM TURKEY ROLL MAKER) us Rui Ellsworth MD PATHOLOGY/CYTOLOGY ORDERABLES F inal Result from Last 3 Months Insurance MEDICARE PART A AND B AET[employer] CHOICE POS II Care Teams Field Spec Relationship Specialty Start Date End Date Ian Jaeger MD [address] [place] [id number] PCP - General Internal Medicine 03/25/25
--- OUTSIDE RECORDS SUMMARY | 2025-07-30 11:09 | XMS_ITS | Encounter Summary ---
Author Organization [facility] Address [address] [place] [address] Care Team Providers Care Counseling Aide Name Role Phone Rinku Glover MD Primary Care Provider [phone] Ian Jaeger MD Primary Care Provide r Encounter Details Date Type Department Care Team (Late st Contact Info) Description 02/06/2018 Orders Only [facility] Health Information Management [address] [place] [address] Scanning, Provider Social History Tobacco Use Types Packs/Day Years Used Date Smoking Tobacco: Former Cigarettes Q uit: 05/11/2016 Smokeless Tobacco: Never Alcohol Use Standard Drinks/Week Comments No 0 (1 standard drink = 0.6 oz pur e alcohol) Sex and Gender Information Value Date Recorded Sex Assigned at Not on file 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
--- OUTSIDE RECORDS SUMMARY | 2025-07-30 11:09 | XMS_ITS | Encounter Summary ---
Author Organization [facility] Healthcare Address [address] [place] [address] Care Team Providers Care Paratransit Operator Name Role Phone Ian Jaeger MD Primary Care Provide r Encounter Details Date Type Department Care Team (Late st Contact Info) Description 07/28/2025 Orders Only [facility] Cardiology [address] [place] [address] Tootie Daily MD [address] [place], [place] [id number] Social History Tobacco Use Types Packs/Day Years Used Date Smoking Tobacco: Every Day Cigarettes Smokeless Tobacco: Former Alcohol Use Standard Drinks/Week Comments No 0 (1 standard drink = 0.6 oz pur e alcohol) Sex and Gender Information Value Date Recorded Sex Assigned at Not on file 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 Sex Male 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 Gender Identity Not on file Sexual Orientation Not on file documented as of this encounter Plan of Treatment Not on file documented as of this encounter Procedures Procedure Name Priority Date/Time Associated Diagnosis Comments CARDIOLOGY DOCUMENT SCAN Routine 07/15/2025 3:14 PM INFORMATION SYSTEMS SECURITY DEVELOPER CARDIOLOGY DOCUMENT SCAN Routine 07/14/2025 3:13 PM INFORMATION SYSTEMS SECURITY DEVELOPER documented in this encounter Results * Cardiology Document Scan (07/15/2025 3:14 PM INFORMATION SYSTEMS SECURITY DEVELOPER) Anatomical Region Laterality Modality Other Tootie Daily MD CV CARDIAC SERVICES PROCEDU RES Final Result * Cardiology Document Scan (07/14/2025 3:13 PM INFORMATION SYSTEMS SECURITY DEVELOPER) Anatomical Region Laterality Modality Other us Tootie Daily MD CV CARDIAC SERVICES PROCEDU RES Final Result documented in this encounter Visit Diagnoses Not on filedocumented in this encounter Care Teams Paratransit Operator Relationship Specialty Start Date End Date Ian Jaeger MD [address] [place] [address] PCP - General Emergency Medicine 08/17/22 documented as of this encounter
--- OUTSIDE RECORDS SUMMARY | 2025-07-30 11:09 | XMS_ITS | Encounter Summary ---
Author Organization [facility] Healthcare Address [address] [place] [address] Care Team Providers Care Tip Finisher Name Role Phone Ian Jaeger MD Primary Care Provide r Encounter Details Date Type Department Care Team (Late st Contact Info) Description 12/08/2024 Orders Only [facility] Health Information Management [address] [place] [address] Scanning, Provider Social History Tobacco Use Types Packs/Day Years Used Date Smoking Tobacco: Every Day Cigarettes Smokeless Tobacco: Former Alcohol Use Standard Drinks/Week Comments No 0 (1 standard drink = 0.6 oz pur e alcohol) Sex and Gender Information Value Date Recorded Sex Assigned at Not on file Legal Sex Male 4:13 AM DATABASE COORDINATOR Gender Identity Not on file Sexual Orientation [...] on filedocumented in this encounter Care Teams Tip Finisher Relationship Specialty Start Date End Date Ian Jaeger MD [address] [place] [address] PCP - General Emergency Medicine 08/17/22 documented as of this encounter
--- OUTSIDE RECORDS SUMMARY | 2025-07-30 11:09 | XMS_ITS | Clinical Summary ---
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 TAKE 1 TABLET BY MOUTH TWICE A DAY 180 tablet 2 5 Active nitroglycerin (NITROSTAT) 0.4 mg SL tabletIndicatio ns:Coronary artery disease involving nikolai coronary artery of nikolai heart without angina pectoris Place 1 tablet [...] (06/15/2020): Added automatically from request for surgery [id number] Preoperative cardiovascular examination 02/26/20 Bradycardia 02/26/2020 Ventricular bigeminy 02/26/2020 Gastroesophageal reflux disease 03/25/2019 Bone lesion 04/01/2018 Hyperlipidemia associated with type 2 diabetes m ellitus 06/10/2017 Hypertension associated with diabetes 06/10/2017 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 05/29/2016 Overview (11/15/2016): Coronary artery disease involving nikolai coronary artery of nikolai heart without angina pectoris Chronic systolic heart [...] Encounters Date Type Department Care Team Description 07/28/2025 Orders Only [facility] Cardiology [address] [place] [address] Tootie Daily MD 07/17/2025 Documentation [facility] Endoscopy [id number] [place] JAMAL Baum [address] Dandre Hammond MD 07/13/2025 Telephone [facility] Cardiology [address] [place] [address] [address] [place] [phone] Jaime Pratt MD 07/01/2025 Results Follow-Up [place] [address] [place] [phone] Leeanna Jean Baptiste NP 48 HR Holter Monitor 06/30/2025 Telephone [place] [address] [place] [phone] Jaime Pratt MD 06/24/2025 2:30 PM SCHOOL 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 Ancillary Procedure [place] [address] [place] [phone] PVC (premature ventricular contraction); Accelerated junctional rhythm 06/18/2025 10:00 AM SCHOOL 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 Office Visit [place] [address] [place] [phone] Leeanna Jean Baptiste NP Chronic heart failure with reduced ejection fraction (HFrEF, <= 40%) (HCC) (Primary Dx); PVC (premature ventricular contraction); Accelerated junctional rhythm; Coronary artery disease involving nikolai coronary artery of nikolai heart without angina pectoris 06/18/2025 Telephone [place] [address] [place] [phone] Leeanna Jean Baptiste NP from Last 3 Months Immunizations Immunization Administration Dates Next Due Influenza, Unspecified 05/12/2020 Surgical History Surgery Date Site/Laterality Comments CARDIAC CATHETERIZATION 08/12/2016 - 08/11/2017 Prox LAD stent, later attempt to reaccess was unsuccessful 2018 Medical History Medical History Date Comments Hx Other Medical HTN, h/o [place], , obesity, hyperlipidemia, dentures,; Comments: MAF 04/26/2016 [...] on file Legal Sex Male 4:13 AM 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 Gender Identity Not on file Sexual Orientation Not on file Last Filed Vital Signs Vital Sign Reading Time Taken Comments Blood Pressure 90/56 06/18/2025 9:55 AM SCHOOL 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 Pulse 88 06/18/2025 9:55 AM SCHOOL 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 Temperature 36.5 C (97.7 F) 11/15/2020 11:14 AM CDT Respiratory Rate 19 07/25/2020 5:50 PM SCHOOL 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 Oxygen Saturation 96% 06/18/2025 9:55 AM SCHOOL 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 Inhaled Oxygen Concentration - - Weight 68.5 kg (151 lb) 06/18/2025 9:55 AM SCHOOL 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 Height 177.8 cm (5' 10) 06/18/2025 9:55 AM SCHOOL 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 Body Mass Index 21.67 06/18/2025 9:55 AM SCHOOL 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 Plan of Treatment Health Maintenance Due Date [...] history exists Medical Devices Implanted Type Area Route Manager Device Identifier Shelf Expiration Date Model / Serial / Lot [employer] [id number] System 6-12fr Mvp Venous Closure Vascade - [id number] Implanted:Qty: 1 on 07/25/2020 by Florentin Lopez MD at [facility] [employer] 05/03/2022 800-612C-1 [id number] / / [id number] [employer] [id number] System 6-12fr Mvp Venous Closure Vascade - [id number] Implanted:Qty: 1 on 07/25/2020 by Florentin Lopez MD at [facility] [employer] 05/10/2022 800-612C-1 0U / / [id number] [employer] [id number] System 6-12fr Mvp Venous Closure Vascade - [id number] Implanted:Qty: 1 on 07/25/2020 by Florentin Lopez MD at [facility] [employer] 05/10/2022 800-612C-1 0U / / [id number] [employer] [id number] System 6-12fr Mvp Venous Closure Vascade - [id number] Implanted:Qty: 1 on 07/25/2020 by Florentin Lopez MD at [facility] [employer] 05/03/2022 800-612C-1 [id number] / / [id number] Stent Chest Description:proximal LAD p er daughter in law Procedures Procedure Name Priority Date/Time Associated Diagnosis Comments CARDIOLOGY DOCUMENT SCAN Routine 025 3:14 PM SCHOOL 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 CARDIOLOGY DOCUMENT SCAN Routine 025 3:13 PM SCHOOL 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 HOLTER MONITOR 48 HR Routine 06/24/2025 1:15 PM SCHOOL 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 PVC (premature ventricular contraction) Accelerated junctional rhythm ELECTROCARDIOGRAM REPORT Routine 025 1:31 PM SCHOOL 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 PVC (premature ventricular contraction) Accelerated junctional rhythm Coronary artery disease involving nikolai coronary artery of nikolai heart without angina pectoris LIPID PANEL Routine 07/12/2023 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 from Last 3 Months or Most Recently Relevant to Health Maintenance Results * Cardiology Document Scan (07/15/2025 3:14 PM SCHOOL 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) Anatomical Region Laterality Modality Other us Tootie Daily MD [facility] PROCEDU RES Final Result * Cardiology Document Scan (07/14/2025 3:13 PM SCHOOL 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) Anatomical Region Laterality Modality Other us Tootie Daily MD CV CARDIAC SERVICES PROCEDU RES Final Result * 48 HR Holter Monitor (06/24/2025 1:15 PM SCHOOL 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) Anatomical Region Laterality Modality Electrocardiogra phy Narrative 06/30/2025 1:46 PM SCHOOL 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 AMBULATORY PROGRAM AIDE REPORT Patient Name: Yaneli Frank Date of [...] was used to complete this document, therefore, roving technician variances may occur. Ernesto Patrick MD, [facility] 06/30/25 Procedure Note Ernesto Patrick MD - 06/30/2025 AMBULATORY PROGRAM AIDE REPORT Patient Name: Yaneli Frank Date of [...] software was used to complete this document, therefore,roving technician variances may occur. Ernesto Patrick MD, [facility] 06/30/25 Leeanna Jean Baptiste NP CV CARDIAC SERVICES [facility] Final Result * Electrocardiogram Report (06/18/2025 1:31 PM SCHOOL 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) Leeanna Jean Baptiste NP ECG ORDERABLES Final [...] Relevant to Health Maintenance Insurance MEDICARE MEDICARE AET MEDICARE MEDICARE [facility] Care Teams Senior Technical Project Manager Relationship Specialty Start Date End Date Ian Jaeger MD [address] [place], [place] [id number] PCP - General Emergency Medicine 08/17/22
--- OUTSIDE RECORDS SUMMARY | 2025-07-30 11:09 | XMS_ITS | Encounter Summary ---
Author Organization [facility] Healthcare Address [address] [place] [address] Care Team Providers Care Global Marketing Specialist Name Role Phone Ian Jaeger MD Primary Care Provide r Encounter Details Date Type Department Care Team (Late st Contact Info) Description 07/01/2025 Results Follow-Up [facility] Cardiology [address] [facility] [address] [place] [phone] Leeanna Jean Baptiste NP [address] [place] [address] 48 HR Holter Monitor Social History Tobacco Use Types Packs/Day Years Used Date Smoking Tobacco: Every Day Cigarettes Smokeless Tobacco: Former Alcohol Use Standard Drinks/Week Comments No 0 (1 standard drink = 0.6 oz pur e alcohol) Sex and Gender Information Value Date Recorded Sex Assigned at Not on file Legal Sex Male 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
[2025-07-30 11:12] LABS: Anion Gap 9 mmol/L (4-12); Blood Urea Nitrogen 15 mg/dL (9-20); Calcium 8.8 mg/dL (8.4-10.2); Carbon Dioxide 27 mmol/L (22-30); Chloride 102 mmol/L (98-107); Estimated Glomerular Filt Rate > 60; Glucose 113 mg/dL (65-110); Potassium 4.2 mmol/L (3.4-5.0); Sodium 138 mmol/L (137-145)
[2025-07-30 11:33] LABS: White Blood Count 1.4 K/mm3 (4.5-10.0)
== END 2025-07-30 10:37 | disposition home or self-care (01) ==
PROVIDERS: PCP Emergency Medicine; Visit Provider Emergency Medicine
DX: K92.2 Gastrointestinal hemorrhage, unspecified (principal)
CPT/HCPCS: 80048; 85025